=== PATIENT | male | born 1950 | race Caucasian/White ===

== ENCOUNTER 2018-03-25 05:24 | Day surgery (SDC) | payer MEDICARE, SELFPAY ==
[2015-12-19 14:27] VITALS: BMI 25.1
[2018-03-25] VITALS (13 sets, daily range): BP systolic 84–120; BP diastolic 62–81; PULSE 63–115; RESP 16; TEMP 36.3–36.4; O2SAT 92–96; BMI 25.9
[2018-03-25] MEDS: Cefazolin 1 GM/50 ML BAG IV (07:12)
[2018-03-25] MEDS: Bupivacaine Mpf 0.5% 30 ML VIAL (07:25)
--- NOTE | 2018-03-25 07:46 | EKG12_ITS ---
Test Reason : NEW A-FIB POSTOP Blood Pressure : / mmHG Vent. Rate : 095 BPM Atrial Rate : 117 BPM P-R Int : 000 ms QRS Dur : 084 ms QT Int : 344 ms P-R-T Axes : 000 033 020 degrees QTc Int : 432 ms Atrial fibrillation Septal infarct , age undetermined Abnormal ECG No previous ECGs available Confirmed by ADOLFO QUACH, EMILY ([id number]), loan expeditor LUZ COHN ([id number] on 03/30/2018 11:29:43 AM Referred By: Myles Iraheta Confirmed By:EMILY MATA MD
--- NOTE | 2018-03-25 08:12 | SUR.PHASEI ---
Addendum entered by Ines Josue 03/25/18 09:19: Dr Parekh discussed care/treatment with Dr Wood, sheet metal roofer; Cardizem 10 mg IVP given per policy at 0850, HR decreased from 90-115's to 50-60's. BP stable. Continues to be asymptomatic. Introduced A-Fib education to patient. Okay to transfer back to per Dr Parekh, will be d/c home and followed up in office. Still awaiting return call to Dr Wood to Dr Parekh to discuss whether to start blood thinner. Original Note: At 0745, patient arrives to PACU in Afib which was noted in O.R. by Abbey Lindsay CRNA and Dr Kasi Parekh reported in O.R. and aware. Called for 12-Lead EKG. When patient more alert, denies having history cardiac arrhythmia. Denies chest pain, SOB, palpitations, denies any recent symptoms of dizziness, light-headedness, increased fatigue, or any other c/o. States he's been doing lots of weather-related physical work outdoors recently.
[2018-03-25] MEDS: dilTIAZem 25 MG/5 ML Vial 10 MG IV BOLUS (08:50)
--- NOTE | 2018-03-25 08:55 | PCM.OPRPT ---
Report of Operation Date of Procedure: 03/25/18 Pre-Operative Diagnosis: Right carpal tunnel syndrome Post-Operative Diagnosis: Right carpal tunnel syndrome Surgery/Procedure Performed:: Right carpal tunnel release Description of Surgical Findings:: Complete release transverse carpal ligament automobile brakes bonder: None Type of Anesthesia:: Block,[place] Anesthesiologist: Kasi Parekh Special Medications: Ancef Estimated Blood Loss (mL): 2 Fluids Replaced: 300 mL crystalloid Description of Procedure: Brief history operative indications: 67-year-old male patient wished to proceed with right open carpal tunnel release. After discussing risks and benefits including but not limited to blood loss, DVTs, PEs, neurovascular damage, infection, hematoma and general risk of anesthesia, the patient demonstrated understanding wish to proceed with right open carpal tunnel release Procedure: On the date of the procedure, the patient's right upper extremity was marked in the preoperative area. Patient was taken back to the operating room, where the tourniquet was placed on the right upper extremity. Patient was given light sedation. All bony prominences are identified well-padded. Anesthesia assumed control C-spine and airway and remained in control throughout the remainder the procedure. [place] block was administered by anesthesia. The right upper extremity was prepped in sterile fashion. Surgeon then scrub. Upon reentering the room, the right upper extremity was prepped in a standard orthopedic fashion. A timeout was called and everyone agreed upon the side, the site, the procedure to be performed, patient identity and antibiotics given. The incision was marked out. Incision was taken at the skin subtenons tissue fat down to fascia. Fascia was then lightly tethered until the median nerve was visible. A [place] was placed proximally and distally, and then scissors were placed proximally and distally to release the transverse carpal ligament. During the release the others were never completely closed. The [place] was then placed proximally and distally once more to verify the transverse carpal ligament had been adequately released. The wound was then copiously irrigated out with normal saline. Wound was then closed using 3-0 nylon suture. 10 cc of 50-50 mixture of 1% lidocaine and 0.5% Sensorcaine without epinephrine injection was given. Xeroform dressing was placed, sterile dressing was placed, compressive dressing was placed. Tourniquet was let down. Volar splint was placed. Patient was awakened by anesthesia and transferred to the PACU for recovery. Postoperative plan: The patient will follow up in 2 weeks for removal splint removal sutures. At that time if they are doing well they will follow-up as needed. - Complications No intraoperative complications - Admit VTE Documentation VTE Present on Admission: No VTE Mechan Device Prophylaxis: SCD's VTE Pharm Prophylaxis ordered?: No Reason prophylaxis not ordered:: Treatment Not Indicated
[2018-03-25] MEDS: Ketorolac 30 MG/ML Syringe IV (08:57)
[2018-03-25] MEDS: Lactated Ringers 1,000 ML 125 ML IV (08:58)
== END 2018-03-25 11:14 | disposition home or self-care (01) ==
LOC: SDC 05:26 → AC 05:29
PROVIDERS: Family Provider Family Medicine; PCP Family Medicine; Referring Provider Specialist; Visit Provider Specialist
PROC: (CPT 64721; principal; 2018-03-25 07:00)
DX: G56.03 Carpal tunnel syndrome, bilateral upper limbs (principal); E66.3 Overweight; Z68.26 Body mass index [BMI] 26.0-26.9, adult
CPT/HCPCS: 64721; 93005; J7120; J2405

== ENCOUNTER → 2018-03-31 08:05 | Outpatient (CLI) | payer MEDICARE, SELFPAY ==
[2018-03-26 10:37] VITALS: BMI 26.4
[2018-03-31 10:05] LABS: International Normalized Ratio 1.2; Prothrombin Time (Protime)PT. 14.7 SECONDS (11.7-14.9)
[2018-03-31 10:34] LABS: AST(SGOT) 23 U/L (15-37); Alanine Aminotransfer ALT/SGPT 33 U/L (16-61); Albumin, Serum 3.4 g/dL (3.2-5.0); Alkaline Phosphatase 44 U/L (45-117); Bilirubin, Direct 0.18 mg/dL (0.00-0.30); Cholesterol 152 mg/dL (200); Globulin 2.9 g/dL (2.2-4.2); High Density Lipoprotein 47 mg/dL; Protein, Total 6.3 g/dL (6.4-8.2); T4 Total, Thyroxin 6.6 ug/dL (4.5-12.1); Thyroid Stim Hormone (TSH) 3.53 uIU/mL (0.358-3.74); Triglycerides 70 mg/dL; Very Low Density Lipoprotein 14 mg/dL (5-40)
== END ==
PROVIDERS: Family Provider Family Medicine; PCP Family Medicine; Referring Provider Internal Medicine Cardiovascular Disease; Visit Provider Internal Medicine Cardiovascular Disease
DX: E78.5 Hyperlipidemia, unspecified (principal); I49.3 Ventricular premature depolarization; I48.91 Unspecified atrial fibrillation; Z79.01 Long term (current) use of anticoagulants
CPT/HCPCS: 36415; 80061; 80076; 84436; 84443; 85610

== ENCOUNTER → 2018-04-06 12:32 | Outpatient (CLI) | payer MEDICARE, SELFPAY ==
[2018-03-26 10:37] VITALS: BMI 26.4
--- NOTE | 2018-04-06 12:34 | ECHOD_ITS ---
Reason For Study: AFIB Procedure This was a 2D Doppler, Color Flow transthoracic echocardiogram. Exam performed in department. Left Ventricle Normal size and thickness. The estimated ejection fraction is 55-60 %. Normal diastology for age. No regional wall motion abnormalities noted. Right Ventricle Normal size and thickness. Normal systolic function. Atria Normal left atrium. Normal right atrium. Normal atrial septum. Mitral Valve The mitral valve is structurally normal. No prolapse or stenosis seen. Tricuspid Valve Possible redundant tricuspid valve vs artifact; of no clinical significance. Trivial tricuspid valve insufficiency. Aortic Valve Normal aortic valve. Trisinus/trileaflet aortic valve. Pulmonic Valve Normal pulmonic valve. Trivial eccentric pulmonic valve insufficiency. Great Vessels Normal aortic root. Normal arch. Normal inferior vena cava. Inferior vena cava collapse with sniff. Pericardium/Pleural No pericardial effusion. MMode/2D Measurements & Calculations LVIDd: 4.9 cm IVSd: 1.2 cm Ao root diam: 3.1 cm LVIDs: 3.4 cm LVPWd: 1.1 cm FS: 30.5 % LAV(MOD-bp): 63.0 ml LVAd ap4: 41.3 cm2 SV(MOD-sp4): 102.1 ml LAV(MOD-bp) Indexed: 34.6 ml/m2 EDV(MOD-sp4): 152.1 ml LAV(MOD-sp2): 52.0 ml EDV(sp4-el): 157.2 ml LAV(MOD-sp4): 67.7 ml LVAs ap4: 21.2 cm2 ESV(MOD-sp4): 50.0 ml ESV(sp4-el): 51.5 ml EF(MOD-sp4): 67.1 % EF(sp4-el): 67.2 % SV(sp4-el): 105.6 ml LA A4 area: 22.9 cm2 LA dimension(2D): 4.2 cm RA A4 area: 18.0 cm2 Time Measurements MV dec time: 0.27 sec Doppler Measurements & Calculations MV E max miquel: 69.3 cm/sec Lat Peak E' Miquel: 8.7 cm/sec Med Peak E' Miquel: 6.1 cm/sec MV A max miquel: 39.9 cm/sec E/E' lat: 8.0 E/E' med: 11.4 MV E/A: 1.7 Ao V2 max: 105.7 cm/sec LV V1 max: 81.3 cm/sec PA V2 max: 88.6 cm/sec Ao max P.5 mmHg LV V1 max P.6 mmHg PI end-d miquel: 78.3 cm/sec TR max miquel: 249.3 cm/sec TR max P.0 mmHg Interpretation Summary The estimated ejection fraction is 55-60 %. Normal diastology for age. Trivial tricuspid valve insufficiency. Possible redundant tricuspid valve vs artifact; of no clinical significance. There is no comparison study available. Ordering Physician: Dawson Wood Referring Physician: EBEN SMITH Performed By: Catrachita Mathew, GABRIELA, RVT
== END ==
PROVIDERS: Family Provider Family Medicine; PCP Family Medicine; Referring Provider Internal Medicine Cardiovascular Disease; Visit Provider Internal Medicine Cardiovascular Disease
DX: R94.31 Abnormal electrocardiogram [ECG] [EKG] (principal); I49.3 Ventricular premature depolarization; I48.91 Unspecified atrial fibrillation
CPT/HCPCS: 93306

== ENCOUNTER 2018-04-06 12:37 | Outpatient (RCR) | payer MEDICARE, SELFPAY ==
[2018-03-26 10:37] VITALS: BMI 26.4
[2018-04-06 13:34] LABS: Hematocrit 44.6 % (40-54); Hemoglobin 14.5 g/dl (13.0-16.5); Mean Corp Hgb Conc 32.5 g/gl (32-36); Mean Corpuscular Hgb 31.9 pg (27.0-32.0); Mean Corpuscular Volume 98.2 fL (80-94); Platelet Count 201 K/mm3 (150-450); RBC Distribution Width CV 13.2 % (11.6-14.6); RBC Distribution Width SD 47.4 fl (35.1-43.9); Red Blood Count 4.54 M/mm3 (4.6-6.2); White Blood Count 6.9 K/mm3 (4.4-11.0)
[2018-04-06 13:43] LABS: Scan Indicated on CBC? Y/N NO
[2018-04-06 13:56] LABS: Anion Gap 5 (5-15); BUN 22 mg/dL (7-18); BUN/Creat Ratio 16.7 RATIO (10-20); Calcium,Total 8.3 mg/dL (8.5-10.1); Chloride 106 mmol/L (98-107); Creatinine, Serum 1.32 mg/dL (0.70-1.30); EST Glomerular Filtration Rate 58 mL/min (>60); Est Glom Filt Rate - Afr Amer 70 mL/min (>60); Glucose 74 mg/dL (74-106); Potassium 4.5 mmol/L (3.5-5.1); Sodium Level 142 mmol/L (136-145)
[2018-04-06 14:00] LABS: International Normalized Ratio 1.2; Prothrombin Time (Protime)PT. 15.5 SECONDS (11.7-14.9)
== END 2018-04-16 13:59 | disposition home or self-care (01) ==
LOC: LAB 12:37
PROVIDERS: Family Provider Family Medicine; PCP Family Medicine; Referring Provider Internal Medicine Cardiovascular Disease; Visit Provider Internal Medicine Cardiovascular Disease
DX: I48.91 Unspecified atrial fibrillation (principal); I49.3 Ventricular premature depolarization; R94.31 Abnormal electrocardiogram [ECG] [EKG]; Z79.01 Long term (current) use of anticoagulants
CPT/HCPCS: 36415; 80048; 85027; 85610; 93306

== ENCOUNTER → 2018-04-14 10:00 | Outpatient (CLI) | payer MEDICARE, SELFPAY ==
[2018-03-26 10:37] VITALS: BMI 26.4
--- NOTE | 2018-04-14 10:06 | STEWCON_ITS ---
Reason For Study: AFIB/FLUTTER Stress Results Protocol: Stress Echocardiogram Maximum Predicted HR: 154 bpm Target HR: 131 bpm % Maximum Predicted HR: 84 % DurationHeart Rate Stage (mm:ss) (bpm) BP Comment BASELINE 39 130/70SR AAKASH PROTOCOL- STAGE 1 3:00 100 140/74VENTRICULAR BIGEMINY, VENTRICULAR COUPLETS AAKASH PROTOCOL- STAGE 2 3:00 108 144/80VENTRICULAR BIGEMINY, VENTRICULAR COUPLETS AAKASH PROTOCOL- STAGE 3 3:00 130 148/78VENTRICULAR BIGEMINY, VENTRICULAR COUPLETS RECOVERY 68 124/68ONE VENTRICULAR TRIPLET Stress Duration: 9:00 mm:ss Maximum Stress HR: 130 bpm Baseline Echocardiogram Findings The estimated ejection fraction is 65 %. Stress Echo Wall motion Data Resting WM Intermediate WM Stress WM Resting Wall Motion Wall Motion Stress No regional wall motion No regional wall motion abnormalities noted. abnormalities noted. EKG Data Normal intervals are noted. The patient exercised according to the regular Aakash protocol for a total duration of 9:02. The maximum heart rate attained was 130 beats per minute. This was 84% of maximum predicted heart rate. The patient exercised into stage 4 of the Aakash protocol. During stress, there were no ST or T wave changes noted to suggest ischemia. No clinical angina was noted. Interpretation Summary The estimated ejection fraction is 65 %. Normal, adequate, treadmill echocardiogram. Negative for ischemia by EKG and echocardiographic criteria. No anginal symptoms noted. Patient had frequent PVCs, ventricular bigeminy, ventricular couplets, and ventricular triplets during exercise and into recovery. This may be concerning for possible undetectable ischemia. Final LVEF is 75%. Test terminated due to foot pain and target heart rate achieved. No complications. Ordering Physician: Dawson Wood Referring Physician: Dawson Wood Performed By: Karina Wilde RDCS
[2018-04-14 11:21] LABS: International Normalized Ratio 1.2; Prothrombin Time (Protime)PT. 15.3 SECONDS (11.7-14.9)
== END ==
PROVIDERS: Family Provider Family Medicine; PCP Family Medicine; Referring Provider Internal Medicine Cardiovascular Disease; Visit Provider Internal Medicine Cardiovascular Disease
DX: I48.91 Unspecified atrial fibrillation (principal); I49.3 Ventricular premature depolarization; R94.31 Abnormal electrocardiogram [ECG] [EKG]; Z79.01 Long term (current) use of anticoagulants
CPT/HCPCS: 36415; 85610; 93017; 93350

== ENCOUNTER 2018-04-21 06:55 | Day surgery (SDC) | payer MEDICARE, SELFPAY ==
[2018-03-26 10:37] VITALS: BMI 26.4
--- NOTE | 2018-04-15 13:46 | RAD_ITS ---
HISTORY: Short of breath. EXAM: XR Chest 2 Views: COMPARISON: None FINDINGS: # of images incl. paperwork: 2 LINES/DEVICES: None. LUNGS: Radiographically clear. No consolidation, edema or effusion. No pneumothorax. MEDIASTINUM AND CARDIOVASCULAR STRUCTURES: Cardiac silhouette not enlarged. Central airways and mediastinal contour are unremarkable. BONES AND SOFT TISSUES: Unremarkable. RAD/Chest PA and Lateral IMPRESSION: No radiographic evidence of acute cardiopulmonary disease. at 2110 Reported and signed by: Leeroy Garcia MD Electronically Signed: Leeroy Garcia, at 21:09 EST Tel , Service support ,
[2018-04-20 07:24] VITALS: BMI 26.4
[2018-04-21 07:50] LABS: International Normalized Ratio 1.1; Prothrombin Time (Protime)PT. 14.2 SECONDS (11.7-14.9)
--- NOTE | 2018-04-21 09:03 | CL.D_ITS ---
Patient Name: CHASITY PINO Study Date: 04/21/2018 Performing: Dawson Wood MD Ht: 66.14 inches 168 cm : 1950 Wt: 163.14 lbs 74 kg Age: 67 Gender: male BSA: 1.84 PROCEDURE(S) PERFORMED LD84-UZU/COR/LV CLINICAL PROFILE AND INDICATIONS Indications: Suspected CAD, Pre-Operative Evaluation, Cardiac Arrythmia Heart Failure: None Stress/Imaging Stress Echocardiogram: Yes Result: IndeterminantStress Echocardiogram: Indetermina nt Angina Classification Anginal Classification w/in 2 Weeks: No symptoms CAD Presentations: Other: Frequent PVCs, dyspnea on exertion. Comorbidities/Risk Factors: Hypertension CONCLUSIONS Normal coronary arteries Normal LV size, wall motion,and systolic function LVEF: by LV gram 65 % Elevated Left Ventricular End Diastolic Pressure RECOMMENDATIONS Restart coumadin as pt is unable to detect when he is in and out of afib. Pt in sinus cheng as of tod ay's procedure. Start HCTZ 12.5 mg po daily for HTN and elevated LVEDP. Pt is at low risk for non cardiac carpal tunnel surgery. DESCRIPTION OF PROCEDURE The patient arrived to the procedure lab. The risks and benefits of the procedure as well as a full d escription of our services here and current unavailability of surgical backup were fully explained to the patient and/or their significant other prior to the catheterization. The Timeout was completed, verifying the correct patient and procedure. The patient's procedural site was prepped and draped in the usual fashion. Local anesthetic was given subcutaneously to right groin region with Lidocaine 2%. Using a modified Seldinger technique, arterial access was obtained via the right femoral artery, a 4 Fr sheath was inserted Left Coronary Artery selective angiography was performed in multiple views us ing a 4 Fr. JL5 catheter. Right Coronary Artery selective angiography was then performed in multiple views using a 4 Fr. 3DRC catheter. Left Ventriculography was performed in KILPATRICK projection using a 4 Fr . Pigtail catheter. LV to AO pullback pressures were then recorded.The arterial sheath was pulled and manual compression applied until hemostasis is achieved. CORONARY ANGIOGRAPHY DOMINANCE: Right Dominant LEFT HEART ASSESSMENT Left Ventricular Ejection Fraction: by LV Gram 65 % Normal LV wall motion Normal Left Ventricular systolic function Normal Left Ventricular systolic function Elevated Left Ventricular End Diastolic Pressure LVEDP: 19 mmHg LEFT MAIN: Angiographically normal LEFT ANTERIOR DECENDING ARTERY: Angiographically normal CIRCUMFLEX ARTERY: Angiographically normal RIGHT CORONARY ARTERY: Angiographically normal COMPLICATIONS No Complications PROCEDURE MEDICATIONS Versed 1 mg IV Oxygen: 2 L/min via nasal cannula SUMMARY OF HEMODYNAMIC DATA Time AIR REST ECG 07:34:17 ECG 08:23:09 AO 141/56 (84) SA 08:34:35 LV 150/-6, 19 08:40:33 LV 147/-7, 18 08:40:39 LVp 148/-8, 18 08:40:46 AOp 156/55 (85) 08:40:51 Signed By Dawson Wood MD On 04/21/2018 09:02:23 Dawson Wood MD
== END 2018-04-21 13:15 | disposition home or self-care (01) ==
PROVIDERS: Family Provider Family Medicine; PCP Family Medicine; Referring Provider Internal Medicine Cardiovascular Disease; Visit Provider Internal Medicine Cardiovascular Disease
DX: I11.0 Hypertensive heart disease with heart failure (principal); I50.1 Left ventricular failure, unspecified; I48.91 Unspecified atrial fibrillation; E78.5 Hyperlipidemia, unspecified; Z79.01 Long term (current) use of anticoagulants; Z79.899 Other long term (current) drug therapy
CPT/HCPCS: 36415; 71046; 85610; 93458; 99152; J7040; C1769; C1894; Q9967

== ENCOUNTER → 2018-04-28 14:28 | Outpatient (CLI) | payer MEDICARE, SELFPAY ==
[2018-04-28 13:19] VITALS: BMI 26.4
== END ==
PROVIDERS: Family Provider Family Medicine; PCP Family Medicine; Referring Provider Physician Assistant Medical; Visit Provider Physician Assistant Medical
DX: I48.0 Paroxysmal atrial fibrillation (principal); I49.3 Ventricular premature depolarization; R94.31 Abnormal electrocardiogram [ECG] [EKG]; Z79.01 Long term (current) use of anticoagulants
CPT/HCPCS: 36415; 85610; 93225; 93226

== ENCOUNTER 2018-05-15 09:00 | Outpatient (RCR) | payer MEDICARE, SELFPAY ==
[2018-03-26 10:37] VITALS: BMI 26.4
[2018-04-28 10:37] VITALS: BMI 26.4
[2018-04-28 13:45] LABS: International Normalized Ratio 1.2; Prothrombin Time (Protime)PT. 14.9 SECONDS (11.7-14.9)
[2018-05-05 09:11] LABS: International Normalized Ratio 1.2; Prothrombin Time (Protime)PT. 14.6 SECONDS (11.7-14.9)
[2018-05-12 09:42] LABS: International Normalized Ratio 1.2; Prothrombin Time (Protime)PT. 14.5 SECONDS (11.7-14.9)
[2018-05-15 10:09] LABS: International Normalized Ratio 1.7
== END 2018-05-15 12:35 | disposition home or self-care (01) ==
LOC: LAB 09:00
PROVIDERS: Family Provider Family Medicine; PCP Family Medicine; Referring Provider Internal Medicine Cardiovascular Disease; Visit Provider Internal Medicine Cardiovascular Disease
DX: I48.91 Unspecified atrial fibrillation (principal); I49.3 Ventricular premature depolarization; R94.31 Abnormal electrocardiogram [ECG] [EKG]; Z79.01 Long term (current) use of anticoagulants
CPT/HCPCS: 36415; 85610

== ENCOUNTER 2018-06-10 12:59 | Outpatient (RCR) | payer MEDICARE, SELFPAY ==
[2018-04-28 13:19] VITALS: BMI 26.4
[2018-05-18 11:35] LABS: International Normalized Ratio 3.1; Prothrombin Time (Protime)PT. 32.2 SECONDS (11.7-14.9)
[2018-05-25 09:51] LABS: International Normalized Ratio 2.4
[2018-06-08 08:33] LABS: Prothrombin Time (Protime)PT. 41.9 SECONDS (11.7-14.9)
[2018-06-08 08:42] LABS: International Normalized Ratio 4.3
[2018-06-10 13:51] LABS: International Normalized Ratio 1.9; Prothrombin Time (Protime)PT. 21.6 SECONDS (11.7-14.9)
== END 2018-06-16 16:00 | disposition home or self-care (01) ==
LOC: LAB 12:59
PROVIDERS: Family Provider Family Medicine; PCP Family Medicine; Referring Provider Internal Medicine Cardiovascular Disease; Visit Provider Internal Medicine Cardiovascular Disease
DX: I48.91 Unspecified atrial fibrillation (principal); Z79.01 Long term (current) use of anticoagulants
CPT/HCPCS: 36415; 85610

== ENCOUNTER → 2018-06-26 11:09 | Outpatient (CLI) | payer MEDICARE, SELFPAY ==
[2018-06-26 11:09] VITALS: BMI 26.8
[2018-06-26 11:53] LABS: Absolute Lymphocyte Count 1.39 X10^3/ul (0.83-4.51); Basophil# 0.03 X10^3/uL; Basophil% 0.5 % (0-1); Eosinophil# 0.19 X10^3/uL; Hematocrit 43.2 % (40-54); Lymphocyte # 1.39 X10^3/ul (4.0); Lymphocyte % 21.6 % (19-41); Mean Corp Hgb Conc 32.4 g/gl (32-36); Mean Corpuscular Hgb 31.6 pg (27.0-32.0); Mean Corpuscular Volume 97.5 fL (80-94); Mean Platelet Vol. 10.4 fl (6.2-12.0); Monocyte% 12.4 % (0-10); Neutrophil # 4.02 X10^3/uL (2.7-7.7); Neutrophil % 62.3 % (47-70); Platelet Count 200 K/mm3 (150-450); RBC Distribution Width CV 13.7 % (11.6-14.6); RBC Distribution Width SD 48.4 fl (35.1-43.9); Red Blood Count 4.43 M/mm3 (4.6-6.2); White Blood Count 6.4 K/mm3 (4.4-11.0)
[2018-06-26 11:54] LABS: POSITIVE COUNT NO; POSITIVE DIFFERENTIAL NO; POSITIVE MORPHOLOGY NO
[2018-06-26 12:03] LABS: Erythrocyte Sedimentation Rate 6 mm/hr (0-20)
[2018-06-26 12:49] LABS: CRP < 2.90 mg/L (0.0-3.0)
== END ==
PROVIDERS: Family Provider Family Medicine; PCP Family Medicine; Referring Provider Physician Assistant Surgical; Visit Provider Physician Assistant Surgical
DX: M25.562 Pain in left knee (principal)
CPT/HCPCS: 36415; 85025; 85652; 86140

== ENCOUNTER → 2019-10-08 08:24 | Outpatient (CLI) | payer MEDICARE, SELFPAY ==
[2019-05-17 09:34] VITALS: BMI 26.1
[2019-10-08 09:22] LABS: AST(SGOT) 16 U/L (15-37); Alanine Aminotransfer ALT/SGPT 20 U/L (16-61); Albumin, Serum 3.2 g/dL (3.2-5.0); Alkaline Phosphatase 51 U/L (45-117); Bilirubin, Direct 0.11 mg/dL (0.00-0.30); Cholesterol 190 mg/dL (200); Globulin 3.6 g/dL (2.2-4.2); High Density Lipoprotein 50 mg/dL; Protein, Total 6.8 g/dL (6.4-8.2); Triglycerides 84 mg/dL; Very Low Density Lipoprotein 17 mg/dL (5-40)
== END ==
PROVIDERS: PCP Family Medicine; Referring Provider Internal Medicine Cardiovascular Disease; Visit Provider Internal Medicine Cardiovascular Disease
DX: E78.5 Hyperlipidemia, unspecified (principal); I10 Essential (primary) hypertension
CPT/HCPCS: 36415; 80061; 80076

== ENCOUNTER → 2020-07-18 09:54 | Outpatient (CLI) | payer MEDICARE, SELFPAY ==
[2020-07-12 13:40] VITALS: BMI 25.5
== END ==
PROVIDERS: PCP Family Medicine; Referring Provider Internal Medicine Cardiovascular Disease; Visit Provider Internal Medicine Cardiovascular Disease
DX: I48.0 Paroxysmal atrial fibrillation (principal)
CPT/HCPCS: 93225; 93226

== ENCOUNTER → 2020-08-30 06:33 | Outpatient (CLI) | payer MEDICARE, SELFPAY ==
[2020-07-12 13:40] VITALS: BMI 25.5
--- NOTE | 2020-08-30 16:52 | STRESSREP ---
Stress Test Report Date: 08-30-2020 Procedure: Exercise tolerance test/imaging study Indications: Paroxysmal atrial fibrillation; PVCs Consent: Per the patient Procedure: The patient exercised on a Remington protocol for 7 minutes and 40 seconds completing Stage II and 1 minute and 40 seconds of Stage III achieving a peak heart rate of 137 bpm (90% predicted maximal heart rate) with a peak blood pressure 158/80 mmHg and a peak MET capacity of 9 METs. The baseline ECG demonstrated sinus bradycardia; septal TX pattern of indeterminate age cannot be excluded; nonspecific T wave abnormality. The peak exercise ECG demonstrated no obvious ECG changes. There were occasional PVCs during exercise and recovery and transient ventricular bigeminy during recovery. The functional capacity was considered good. There was no complaint of chest discomfort during exercise or recovery. The examination was discontinued secondary to leg discomfort. Impression: 1. Technically adequate (percent predicted maximal heart rate greater than 85%) exercise tolerance test 2. Peak exercise ECG with no obvious ECG changes 3. There were occasional PVCs during exercise and recovery and transient ventricular bigeminy during recovery 4. Nuclear images pending Myocardial perfusion imaging study: Technique: The patient was injected with 11.3 mCi of technetium 99m Cardiolite and subsequently rest SPECT Cardiolite nuclear imaging was obtained in the horizontal long, vertical long, and short axis views. The patient exercised on a Remington protocol for 7 minutes and 40 seconds completing Stage II and 1 minute and 40 seconds of Stage III achieving a peak heart rate of 137 bpm (90% predicted maximal heart rate) with a peak blood pressure 158/80 mmHg and a peak MET capacity of 9 METs. The patient was injected with 31.2 mCi of technetium 99m Cardiolite and subsequently stress SPECT Cardiolite nuclear imaging was obtained in the horizontal long, vertical long, and short axis views. A gated Cardiolite study at peak stress was obtained. Interpretation: Rest and stress SPECT Cardiolite nuclear imaging status post realignment, normalization, and attenuation correction, demonstrates the appearance of relative uniform tracer uptake and myocardial perfusion appearing within normal limits. There is end systolic thickening and brightening. The gated Cardiolite study demonstrates myocardial thickening and inward wall motion. The reported LVEF is 48%. Impression: 1. Rest and stress SPECT Cardiolite nuclear imaging demonstrate relative uniform tracer uptake and myocardial perfusion appearing within normal limits. 2. The gated Cardiolite study reports an LVEF of 48%. This note was generated with Dragon dictation software. It may contain incorrect words, spelling, and punctuation that were not noted in checking the note before signing.
== END ==
PROVIDERS: PCP Family Medicine; Referring Provider Internal Medicine Cardiovascular Disease; Visit Provider Internal Medicine Cardiovascular Disease
DX: R94.31 Abnormal electrocardiogram [ECG] [EKG] (principal)
CPT/HCPCS: 78452; 93017; A9500; A4216

== ENCOUNTER → 2021-07-30 | Outpatient (CLI) | payer MEDICARE, SELFPAY ==
[2021-07-30 12:00] LABS: Anion Gap 3 (5-15); BUN 17 mg/dL (7-18); BUN/Creat Ratio 13.2 RATIO (10-20); Calcium,Total 8.6 mg/dL (8.5-10.1); Chloride 105 mmol/L (98-107); Creatinine, Serum 1.29 mg/dL (0.70-1.30); EST Glomerular Filtration Rate 59 mL/min (>60); Est Glom Filt Rate - Afr Amer 71 mL/min (>60); Glucose 107 mg/dL (74-106); Magnesium 2.2 mg/dL (1.6-2.6); Potassium 4.4 mmol/L (3.5-5.1); Sodium Level 141 mmol/L (136-145)
== END | disposition home or self-care (01) ==
PROVIDERS: PCP Family Medicine; Referring Provider Nurse Practitioner Gerontology; Visit Provider Nurse Practitioner Gerontology
DX: I48.0 Paroxysmal atrial fibrillation (principal)
CPT/HCPCS: 36415; 80048; 83735; 84443

== ENCOUNTER → 2021-08-21 | Outpatient (CLI) | payer MEDICARE, SELFPAY ==
--- NOTE | 2021-08-21 12:48 | ECHOD_ITS ---
Reason For Study: ATRIAL FIB-FLUTTER Procedure This was a 2D Doppler, Color Flow transthoracic echocardiogram. The exam was of adequate technical quality. Exam performed in department. Left Ventricle Normal LV size. Moderate concentric left ventricular hypertrophy. Left ventricular systolic function is normal. The estimated ejection fraction is 55 %. Unable to assess diastolic dysfunction. No regional wall motion abnormalities noted. Right Ventricle Normal RV size. Normal systolic function. Atria The left atrium is mildly enlarged. Normal right atrium. No doppler evidence for ASD. Mitral Valve There is no mitral annular calcification. Mild diffuse mitral valve thickening. Mild mitral valve prolapse, posterior leaflet. Mild (1+) mitral valve insufficiency. Tricuspid Valve Normal tricuspid valve. Mild tricuspid valve insufficiency. Right ventricular systolic pressure estimated to be 34 mmHg. Aortic Valve Trisinus/trileaflet aortic valve. Normal aortic valve. Pulmonic Valve The pulmonic valve is not well visualized. Trivial pulmonic valve insufficiency. Great Vessels Normal sized aortic root. Pericardium/Pleural No pericardial effusion. MMode/2D Measurements & Calculations LVIDd: 4.5 cm IVSd: 1.4 cm Ao root diam: 3.2 cm LVIDs: 3.4 cm LVPWd: 1.4 cm RVDd: 3.5 cm FS: 23.8 % LAV(MOD-bp): 61.2 ml LVAd ap4: 33.3 cm2 SV(MOD-sp4): 46.5 ml LAV(MOD-bp) Indexed: 34.2 ml/m2 LVLd ap4: 8.0 cm LAV(MOD-sp2): 61.5 ml EDV(MOD-sp4): 114.3 ml LAV(MOD-sp4): 60.2 ml EDV(sp4-el): 117.2 ml LVAs ap4: 24.0 cm2 LVLs ap4: 7.4 cm ESV(MOD-sp4): 67.8 ml ESV(sp4-el): 66.4 ml EF(MOD-sp4): 40.7 % EF(sp4-el): 43.3 % SV(sp4-el): 50.8 ml LA A4 area: 20.8 cm2 LA dimension(2D): 4.1 cm RA A4 area: 16.5 cm2 Doppler Measurements & Calculations MV E max michele: 72.5 cm/sec Ao V2 max: 95.6 cm/sec LV V1 max: 69.0 cm/sec Ao max P.7 mmHg LV V1 max P.9 mmHg PA V2 max: 83.2 cm/sec TR max michele: 278.1 cm/sec TR max P.0 mmHg ECHO/Echo Complete Interpretation Summary Left ventricular systolic function is normal. The estimated ejection fraction is 55 %. Moderate concentric left ventricular hypertrophy. The left atrium is mildly enlarged. Mild diffuse mitral valve thickening. Mild mitral valve prolapse, posterior leaflet Mild (1+) mitral valve insufficiency. Mild tricuspid valve insufficiency. Trivial pulmonic valve insufficiency. Right ventricular systolic pressure estimated to be 34 mmHg. Unable to assess diastolic dysfunction. Ordering Physician: Thom Schulte/Rashard Victor Referring Physician: AUGUSTINA BOONE Performed By: Karina Wilde RDCS
== END | disposition home or self-care (01) ==
LOC: CVS 12:47
PROVIDERS: PCP Family Medicine; Referring Provider Nurse Practitioner Gerontology; Visit Provider Nurse Practitioner Gerontology
DX: I48.0 Paroxysmal atrial fibrillation (principal); R06.00 Dyspnea, unspecified
CPT/HCPCS: 93225; 93226; 93306

== ENCOUNTER → 2021-12-13 | Outpatient (CLI) | payer MEDICARE, SELFPAY ==
--- NOTE | 2021-12-13 07:46 | CT_ITS ---
STUDY: CT MAXILLOFACIAL SINUSES REASON FOR EXAM: Male, 71 years old. Chronic sinus congestion. RADIATION DOSAGE (If Supplied By Facility): CTDIvol = ( 33.06 ) mGy, DLP = ( 788.40 ) mGycm TECHNIQUE: The patient was scanned in a multi detector CT scanner. High resolution axial imaging was performed without the administration of intravenous contrast material. Sagittal and coronal images were reconstructed. Individualized dose optimization techniques were used for this CT. COMPARISON: None. FINDINGS: FRONTAL SINUSES: Partial opacification of the frontal sinuses. ETHMOIDAL SINUSES: Partial opacification of the ethmoid sinuses. MAXILLARY SINUSES: There is partial opacification of the left maxillary sinus. Mucosal thickening of the right maxillary sinus. SPHENOIDAL SINUSES: Mucosal thickening of the sphenoid sinus. Compromise of the ostiomeatal complex bilaterally due to mucosal hypertrophy worse on the left side. Normal bilateral middle turbinates. There is hypertrophy of the bilateral inferior nasal turbinates. There is a mild right sided nasal septal deviation with a right sided nasal septal spur. There is patency of the bilateral nasal airways. The visualized osseous structures are normal. The visualized bilateral orbital contents are normal. CT/Sinus/Facial Bone IMPRESSION: ROACH sinusitis. Electronically Signed: Carlos Gonzalez MD at 9:19 EDT ,
== END | disposition home or self-care (01) ==
LOC: CT 07:38
PROVIDERS: PCP Family Medicine; Referring Provider Otolaryngology; Visit Provider Otolaryngology
DX: J32.8 Other chronic sinusitis (principal)
CPT/HCPCS: 70486

== ENCOUNTER → 2022-11-07 | Outpatient (CLI) | payer MEDICARE, SELFPAY ==
[2022-11-07 08:37] LABS: BNP,B-Type NATRIURETIC PEPTIDE 258.8 pg/mL (0-100)
== END | disposition home or self-care (01) ==
LOC: LAB 07:39
PROVIDERS: PCP Family Medicine; Referring Provider Internal Medicine Cardiovascular Disease; Visit Provider Internal Medicine Cardiovascular Disease
DX: R06.00 Dyspnea, unspecified (principal)
CPT/HCPCS: 36415; 83880

== ENCOUNTER → 2022-11-15 | Outpatient (CLI) | payer MEDICARE, SELFPAY ==
[2022-11-15 08:46] LABS: Anion Gap 4 (5-15); BUN 30 mg/dL (7-18); BUN/Creat Ratio 18.1 RATIO (10-20); Calcium,Total 8.4 mg/dL (8.5-10.1); Chloride 103 mmol/L (98-107); Creatinine, Serum 1.66 mg/dL (0.70-1.30); EST Glomerular Filtration Rate 44 mL/min (>60); Est Glom Filt Rate - Afr Amer 53 mL/min (>60); Glucose 100 mg/dL (74-106); Potassium 3.8 mmol/L (3.5-5.1); Sodium Level 138 mmol/L (136-145)
== END | disposition home or self-care (01) ==
LOC: LAB 07:42
PROVIDERS: PCP Family Medicine; Referring Provider Nurse Practitioner Gerontology; Visit Provider Nurse Practitioner Gerontology
DX: R06.00 Dyspnea, unspecified (principal); Z51.81 Encounter for therapeutic drug level monitoring; Z79.899 Other long term (current) drug therapy
CPT/HCPCS: 36415; 80048

== ENCOUNTER → 2022-11-20 | Outpatient (CLI) | payer MEDICARE, SELFPAY ==
--- NOTE | 2022-11-20 08:51 | ECHOD_ITS ---
Reason For Study: DYSPNEA Procedure This was a 2D Doppler, Color Flow transthoracic echocardiogram. Exam performed in department. Left Ventricle Normal LV size. Moderately severe global left ventricular systolic dysfunction. The left ventricular ejection fraction is 25 %. There is moderate to severe global hypokinesis of the left ventricle. Right Ventricle Mildly dilated right ventricle. Mild global right ventricular systolic dysfunction. Atria Normal left atrium. Normal right atrium. Mitral Valve Normal mitral valve. Tricuspid Valve Normal tricuspid valve. Aortic Valve Normal aortic valve. Trisinus/trileaflet aortic valve. Pulmonic Valve Normal pulmonic valve. Great Vessels Normal aortic root. The pulmonary artery is normal size. Normal inferior vena cava. Pericardium/Pleural No pericardial effusion. MMode/2D Measurements & Calculations LVIDd: 5.3 cm IVSd: 1.1 cm LVOT diam: 2.1 cm LVIDs: 4.3 cm LVPWd: 1.1 cm LVOT area: 3.6 cm2 RVDd: 4.3 cm FS: 18.2 % Ao root diam: 3.3 cm LAV(MOD-bp): 80.1 ml LVAd ap4: 31.7 cm2 LAV(MOD-bp) Indexed: 44.3 ml/m2 LVLd ap4: 8.4 cm LAV(MOD-sp2): 81.6 ml EDV(MOD-sp4): 102.4 ml LAV(MOD-sp4): 76.4 ml EDV(sp4-el): 101.9 ml LVAs ap4: 24.9 cm2 LVLs ap4: 7.6 cm ESV(MOD-sp4): 68.8 ml ESV(sp4-el): 68.8 ml EF(MOD-sp4): 32.9 % EF(sp4-el): 32.5 % LVAd ap2: 32.2 cm2 SV(MOD-sp4): 33.7 ml SV(MOD-sp2): 39.0 ml LVLd ap2: 7.7 cm EDV(MOD-sp2): 106.5 ml EDV(sp2-el): 114.3 ml LVAs ap2: 24.5 cm2 LVLs ap2: 7.6 cm ESV(MOD-sp2): 67.6 ml ESV(sp2-el): 66.8 ml EF(MOD-sp2): 36.6 % SV(sp4-el): 33.1 ml LA dimension(2D): 4.2 cm LA A4 area: 24.7 cm2 RA A4 area: 22.2 cm2 TAPSE: 1.1 cm Time Measurements MV dec time: 0.20 sec Doppler Measurements & Calculations MV E max miquel: 60.6 cm/sec Lat Peak E' Miquel: 7.5 cm/sec Med Peak E' Miquel: 4.5 cm/sec E/E' lat: 8.0 E/E' med: 13.3 Ao V2 max: 73.0 cm/sec LV V1 max: 55.9 cm/sec SV(LVOT): 35.5 ml Ao max P.2 mmHg LV V1 max P.3 mmHg Ao V2 mean: 53.7 cm/sec LV V1 mean P.65 mmHg Ao mean P.3 mmHg LV V1 mean: 37.7 cm/sec Ao V2 VTI: 12.4 cm LV V1 VTI: 9.8 cm AV (velocity ratio): 0.79 MONIQUE(I,D): 2.9 cm2 MONIQUE(V,D): 2.8 cm2 PA V2 max: 63.2 cm/sec TR max miquel: 287.2 cm/sec PA max PG (full): 0.86 mmHg TR max P.0 mmHg ECHO/Echo Complete Interpretation Summary Normal LV size. Moderately severe global left ventricular systolic dysfunction. There is moderate to severe global hypokinesis of the left ventricle. The left ventricular ejection fraction is 25 %. Compared to previous study, the left ventricular systolic function has worsened .. Ordering Physician: Valentina Davidson Referring Physician: Valentina Davidson Performed By: Roberta James RDCS
== END | disposition home or self-care (01) ==
PROVIDERS: PCP Family Medicine; Referring Provider Nurse Practitioner Gerontology; Visit Provider Nurse Practitioner Gerontology
DX: R06.00 Dyspnea, unspecified (principal); I48.0 Paroxysmal atrial fibrillation; I10 Essential (primary) hypertension; I49.3 Ventricular premature depolarization
CPT/HCPCS: 93306

== ENCOUNTER → 2022-11-27 | Outpatient (CLI) | payer MEDICARE, SELFPAY ==
[2022-11-27 15:13] LABS: Anion Gap 4 (5-15); BUN 26 mg/dL (7-18); Calcium,Total 8.5 mg/dL (8.5-10.1); Chloride 103 mmol/L (98-107); Creatinine, Serum 1.63 mg/dL (0.70-1.30); EST Glomerular Filtration Rate 45 mL/min (>60); Est Glom Filt Rate - Afr Amer 54 mL/min (>60); Glucose 144 mg/dL (74-106); Sodium Level 138 mmol/L (136-145)
--- NOTE | 2022-11-27 15:17 | RAD_ITS ---
INDICATION: Cardioversion EXAMINATION/TECHNIQUE: X-RAY - XR Chest 2 Views COMPARISON: FINDINGS: LINES/DEVICES: None. LUNGS: No consolidation, edema or effusion. Interstitial prominence. No pneumothorax. MEDIASTINUM AND CARDIOVASCULAR STRUCTURES: Cardiac silhouette not enlarged. Central airways and mediastinal contour are unremarkable. BONES AND SOFT TISSUES: Degenerative vertebral changes. RAD/Chest PA and Lateral IMPRESSION: Interstitial prominence. Electronically Signed: Brayden Whitley DO at 17:01 EDT ,
[2022-11-27 15:24] LABS: Magnesium 2.5 mg/dL (1.6-2.6); Thyroid Stim Hormone (TSH) 3.73 uIU/mL (0.358-3.74)
== END | disposition home or self-care (01) ==
PROVIDERS: PCP Family Medicine; Referring Provider Nurse Practitioner Gerontology; Visit Provider Nurse Practitioner Gerontology
DX: I48.0 Paroxysmal atrial fibrillation (principal)
CPT/HCPCS: 36415; 71046; 80048; 83735; 84443

== ENCOUNTER 2022-12-03 06:08 | Inpatient (IN) | payer MEDICARE, SELFPAY ==
[2022-12-03] VITALS (12 sets, daily range): BP systolic 99–122; BP diastolic 61–89; PULSE 60–75; RESP 16–23; TEMP 36.1–36.6; O2SAT 93–98; BMI 24.7; BMI 24.6; BMI 24.0
--- NOTE | 2022-12-03 06:20 | EKG12_ITS ---
Test Reason : CP Blood Pressure : / mmHG Vent. Rate : 072 BPM Atrial Rate : 000 BPM P-R Int : 000 ms QRS Dur : 086 ms QT Int : 404 ms P-R-T Axes : 000 138 223 degrees QTc Int : 442 ms Atrial fibrillation Right axis deviation Pulmonary disease pattern Septal infarct (cited on or before 25-MAR-2018) Abnormal ECG When compared with ECG of 25-MAR-2018 07:58, QRS axis Shifted right Non-specific change in ST segment in Inferior leads Non-specific change in ST segment in Lateral leads Nonspecific T wave abnormality now evident in Lateral leads Confirmed by ADOLFO QUACH, EMILY ([id number]), visual effects editor TYLOR THIBODEAUX ([id number]) on 12/04/2022 2:23:23 PM Referred By: FELIPA Confirmed By:EMIYL MATA MD
--- NOTE | 2022-12-03 06:20 | RAD_ITS ---
INDICATION: chest pain EXAMINATION/TECHNIQUE: X-RAY - XR Chest 1 View COMPARISON: November 27, 2022. FINDINGS: LINES/DEVICES: None. LUNGS: Lateral right midlung and left lung base hazy opacification and linear atelectasis. No effusion. No pneumothorax. MEDIASTINUM AND CARDIOVASCULAR STRUCTURES: Cardiac silhouette not enlarged. BONES AND SOFT TISSUES: Unremarkable. RAD/Chest 1 View (Portable) IMPRESSION: Hazy opacification in the lateral right midlung and left lung base concerning for typical or atypical pneumonia in the appropriate setting. If there is absence of clinical pneumonia CT fifth angiogram may be beneficial. Radiographic follow-up recommended after treatment to ensure resolution. Electronically Signed: Felix Marie MD at 6:54 EDT ,
--- NOTE | 2022-12-03 06:21 | EDS_ITS ---
HPI History of Present Illness Chief Complaint: Chest Pain Detail of Chief Complaint: Chest pain Informant: patient and family Narrative Narrative: Patient presents to the emergency department with complaint of chest pain. Patient states the symptoms started around 3 AM and woke him from sleep. He thought maybe he was having a bad dream. Describes a tightness in his chest and radiated to his neck. [place] nauseated with that and somewhat short of breath. He felt sweaty. Patient states he took a while before he came downstairs to let family know. On the way to the hospital his discomfort resolved. Patient does have history of A-fib and is anticoagulated with Xarelto. He scheduled to have a cardioversion as he has been complaining of exertional dyspnea for the last 2 months. Patient had an echocardiogram on the fourth of this month that showed an EF of 25% with decreased wall motion of the left ventricle. Patient states his last heart cath was in 2019. He is never had stents. Never had open heart surgery. [facility] Medical History Abnormal EKG Arthritis Bone spur of right foot Coronary artery calcification Essential hypertension Hyperlipidemia alf (current) use of anticoagulants New onset atrial fibrillation Paroxysmal atrial fibrillation Premature ventricular contractions Home Medications tamsulosin 0.4 mg capsule (Flomax) 0.4 mg PO DAILY 07/30/21 [History Last Taken Unknown] digoxin 125 mcg (0.125 mg) tablet 125 mcg PO DAILY #90 tabs 09/09/22 [Rx Last Taken Unknown] omeprazole magnesium 20 mg tablet,delayed release (Prilosec OTC) 20 mg PO DAILY 11/06/22 [History Last Taken Unknown] carvedilol 3.125 mg tablet 3.125 mg PO BID #60 tabs 11/27/22 [Rx Last Taken Unknown] furosemide 40 mg tablet 40 mg PO DAILY #90 tabs 11/27/22 [Rx Last Taken Unknown] rivaroxaban 20 mg tablet (Xarelto) 20 mg PO DAILY #90 tabs 11/27/22 [Rx Last Taken Unknown] Allergy/AdvReac Type Severity Reaction Status Date / Time Sulfa (Sulfonamide Allergy sores in Verified 12/03/22 06:11 Antibiotics) mouth sulfamethoxazole Allergy Sores in Verified 12/03/22 06:11 [From Bactrim] mouth Family History (Reviewed 11/28/22 @ 15:58 by Valentina Davidson OPERATIONS RESEARCH DIRECTOR, OPERATIONS RESEARCH DIRECTOR-C) Mother Diabetes Father Congestive heart failure Flores's lung Sister Myocardial infarction CAD (coronary artery disease) Diabetes Brother Diabetes Surgical History (Reviewed 11/28/22 @ 15:58 by Valentina Davidson OPERATIONS RESEARCH DIRECTOR, OPERATIONS RESEARCH DIRECTOR-C) Finger laceration (02/27/18) History of appendectomy History of arthroscopic knee surgery History of bilateral cataract extraction History of colonoscopy (05/31/14) History of foot fracture History of left heart catheterization (04/21/18) History of left knee replacement (05/09/15) History of tonsillectomy and adenoidectomy Right carpal tunnel syndrome (03/25/18) Social History (Reviewed 11/28/22 @ 15:58 by Valentina Davidson OPERATIONS RESEARCH DIRECTOR, OPERATIONS RESEARCH DIRECTOR-C) Smoking Status: Never smoker alcohol intake: current alcohol intake frequency: a few times a week caffeine: Yes Type: coffee Number of servings: 1 and tea Number of servings: 1 ROS ROS ED Constitutional Constitutional ED: Reports systems reviewed and no addt'l complaints, except as documented; Denies body ache(s), change in weight or chills Eyes Eyes: Denies acute decrease in peripheral vision, change in vision, double vision or loss of vision ENT ENT ED: Reports none; Denies ear pain, lip swelling, loss taste/smell, neck pain, otalgia or sore throat Cardiovascular Cardiovascular: Reports none and chest pain; Denies abdominal pain, chest pain with activity, leg edema, lightheadedness, palpitations, rapid heart rate or syncope Respiratory/Chest Respiratory/Chest: Reports none and shortness of breath with exertion; Denies change in mental status, dry cough, dyspnea, hemoptysis or shortness of breath at rest Gastrointestinal Gastrointestinal: Reports none; Denies abdominal pain, change in stool character, diarrhea, hematemesis, hematochezia, melena, rectal bleeding or vomiting Genitourinary Genitourinary ED: Reports none; Denies abdominal discomfort, anuria, dysuria, genital pain or polyuria Musculoskeletal Musculoskeletal: Reports none; Denies arthralgias, back pain, difficulty walking, extremity pain, muscle weakness or myalgias Integumentary Reports none; Denies abscess or rash Neurologic Neurologic: Reports none; Denies abnormal gait, confusion, focal weakness, frequent falls, headache(s), loss of vision, numbness, paresthesias, radicular pain, vertigo or weakness Psychiatric Psychiatric: Reports systems reviewed and no addt'l complaints, except as documented and none; Denies behavioral changes, confusion, difficulty concentrating, hallucinations, suicidal ideation, tactile hallucinations or visual hallucinations Endocrine Endocrinology: Denies none, cold intolerance, excessive sweating, fatigue or heat intolerance Hematologic/Lymphatic Hematologic/Lymphatic: Reports none; Denies anemia, easy bleeding or easy bruising Allergic/Immunologic Allergic/Immunologic ED: Denies as per HPI, none, lip swelling, mouth swelling, throat swelling, tongue swelling or hives EXAM Physical Exam Const Vital Signs: 12/03/22 06:09 12/03/22 06:12 12/03/22 06:12 Temperature 97.6 F L Temperature Source Oral Pulse Rate 75 74 Respiratory Rate 17 23 H Respiratory Effort Normal Blood Pressure 117/80 Blood Pressure Mean 92 Pulse Ox 97 97 Oxygen Delivery Method Room Air Room Air 12/03/22 06:20 12/03/22 07:08 12/03/22 07:33 Temperature Temperature Source Pulse Rate 72 63 Respiratory Rate 16 17 Respiratory Effort Blood Pressure 114/89 H 114/89 H Blood Pressure Mean 97 97 Pulse Ox 98 98 97 Oxygen Delivery Method Room Air Room Air Positive well nourished and well developed General Appearance ED: well developed and NAD HEENT Reports TM's clear and moist mucous membranes normocephalic and atraumatic; Negative for trauma or tenderness Tympanic Membrane ED: Yes TM's clear Eyes PERRL and EOMs intact bilaterally General Eye ED: Negative for pale conjunctiva or scleral icterus Neck no lymphadenopathy, supple and no JVD General: Negative for tenderness Chest Wall inspection of chest normal and palpation of chest normal Chest: Negative for tenderness Resp normal respiratory effort and clear to auscultation bilaterally Effort and Inspection: Negative for respiratory distress or pain with movement Auscultation: Negative for rhonchi, wheezes or diminished lung sounds Cardio regular rate, S1 normal heart sound, S2 normal heart sound and no murmurs; Negative for regular rhythm Rhythm: abnormal rhythm irregularly irregular Peripheral Pulses: pulses 2+ throughout GI normal to inspection, nondistended, normoactive bowel sounds, soft to palpation, non-tender, non-distended and no masses Back/Spine no CVA tenderness and no thoracic nor lumbar tenderness Extremity normal to inspection General Extremety ED: Negative for edema General Extremity: Negative for edema Neuro oriented x3, CN's II-XII intact bilaterally, no sensory deficits noted and gait normal Sensorium / Orientation: awake, alert, oriented to person, oriented to place and oriented to time Motor Exam: strength 5/5 throughout and strength abnormal Psych mental status grossly normal Skin no rashes or lesions noted and no wounds Heart Score History: Highly Suspicious ECG: Nonspecific Repolarization Age: >/= 65 years Risk Factors: 1 or 2 Risk Factors Troponin: >1 - <3 Normal Limit Score: 7 MDM MDM MDM Narrative Medical decision making narrative: Patient presents with chest pain and history of exertional dyspnea over the last 2 months. Chest pain currently resolved. In the differential would be acute coronary syndrome versus PE which I feel is less likely given that he is on Xarelto. IV line established. Patient placed on bilingual research interviewer. EKG obtained showed atrial fibrillation with a ventricular rate of 72 bpm with old septal infarct. CBC with differential was unremarkable. Chemistries unremarkable. Troponin was elevated at 133. Creatinine elevated 1.65. Patient did receive aspirin on arrival in the emergency department. 1 view chest x-ray showed no evidence of infiltrate or pneumothorax or acute disease process. Case will be discussed with hospitalist and mold making supervisor on-call. Patient will be admitted for non-ST elevation PA. It is noted that patient had recent echocardiogram on the fourth of the month that showed an ejection fraction of 25% with global left ventricular wall motion abnormality and hypokinesis. This is in contrast to prior echo in August 2021 that showed an ejection fraction of 55% with no abnormalities otherwise. Patient has been experiencing exertional dyspnea for the last 2 months. After discussing results with patient and family members he tells me now that he is having more chest discomfort. Repeat EKG obtained showed atrial fibrillation with a rate of 68 bpm with old septal infarct no change from first EKG. Patient will be given nitroglycerin and will have Nitropaste placed to the anterior chest wall. Hospitalist made aware. Lab Data Attestation: I reviewed the patient's lab results. Labs: Laboratory Results - last 24 hr 12/03/22 06:11 WBC 8.1 RBC 4.72 Hgb 14.9 Hct 46.8 MCV 99.2 H MCH 31.6 MCHC 31.8 L RDW Std Deviation 48.2 H RDW Coeff of Jair 13.2 Plt Count 198 MPV 11.0 Immature Gran % (Auto) 0.200 Neut % (Auto) 58.7 Lymph % (Auto) 22.4 [place] % (Auto) 12.4 H Eos % (Auto) 5.3 H Baso % (Auto) 1.0 Absolute Neuts (auto) 4.8 Absolute Lymphs (auto) 1.81 Nucleated RBC % 0 Sodium 140 Potassium 4.2 Chloride 105 Carbon Dioxide 32.0 Anion Gap 3 L BUN 31 H Creatinine 1.65 H Estim Creat Clear Calc 39.73 Est GFR (MDRD) Af Amer 53 L Est GFR (MDRD) Non-Af 44 L BUN/Creatinine Ratio 18.8 Glucose 110 H Calcium 8.6 Troponin I High Sens 133 H* Digoxin 0.97 Radiography Diagnostic Testing: Clinical Impression(s) from Imaging Studies Chest X-Ray 12/03/22 06:20 IMPRESSION: Hazy opacification in the lateral right midlung and left lung base concerning for typical or atypical pneumonia in the appropriate setting. If there is absence of clinical pneumonia CT fifth angiogram may be beneficial. Radiographic follow-up recommended after treatment to ensure resolution. Electronically Signed: Felix Marie MD at 6:54 EDT , 1 view chest x-ray obtained interpreted by myself as no evidence of infiltrate or pneumothorax or acute disease process. The nuclear instructor thought there may be hazy opacification in the left lower lobe which could be consistent with a pneumonia in the correct clinical setting otherwise recommended possibly getting a CTA of the chest to evaluate further. Patient clinically does not have pneumonia. EKG Initial EKG: Attestation: I personally reviewed and interpreted this EKG as follows: Comments: Atrial fibrillation with rate of 72 bpm with old septal infarct Prior EKG tracings: available for review Prior: Unchanged Discharge Plan Dx/Rx/DC Orders Clinical Impression: Acute renal insufficiency, Non-ST elevated myocardial infarction, Chest pain Disposition Disposition: Acute Care Hospital [facility]
[2022-12-03] MEDS: Aspirin 81 MG TAB.CHEW 162 MG PO (06:31)
[2022-12-03] MEDS: 0.9% Normal Saline (1000mL) 1,000 ML 150 ML IV (06:31)
[2022-12-03 06:41] LABS: Absolute Lymphocyte Count 1.81 X10^3/uL (0.83-4.51); Absolute Neutrophil Count 4.8 X10^3/uL (2.0-7.7); Basophil# 0.08 X10^3/uL; Eosinophil# 0.43 X10^3/uL; Eosinophils% 5.3 % (0-5); Hematocrit 46.8 % (40-54); Hemoglobin 14.9 g/dL (13.0-16.5); Lymphocyte # 1.81 X10^3/ul (0.83-4.51); Lymphocyte % 22.4 % (19-41); Mean Corp Hgb Conc 31.8 g/dL (32-36); Mean Corpuscular Hgb 31.6 pg (27.0-32.0); Mean Corpuscular Volume 99.2 fL (80-94); Monocyte% 12.4 % (0-10); NRBC Flagged by Analyzer 0 % (0-5); Neutrophil # 4.75 X10^3/uL (2.7-7.7); Neutrophil % 58.7 % (47-70); Platelet Count 198 K/mm3 (150-450); RBC Distribution Width CV 13.2 % (11.6-14.6); RBC Distribution Width SD 48.2 fl (35.1-43.9); Red Blood Count 4.72 M/mm3 (4.6-6.2); White Blood Count 8.1 K/mm3 (4.4-11.0)
[2022-12-03 07:03] LABS: Anion Gap 3 (5-15); BUN 31 mg/dL (7-18); BUN/Creat Ratio 18.8 RATIO (10-20); Calcium,Total 8.6 mg/dL (8.5-10.1); Chloride 105 mmol/L (98-107); Creatinine, Serum 1.65 mg/dL (0.70-1.30); EST Glomerular Filtration Rate 44 mL/min (>60); Est Glom Filt Rate - Afr Amer 53 mL/min (>60); Estimated Creatinine Clearance 39.73 ml/min; Glucose 110 mg/dL (74-106); Potassium 4.2 mmol/L (3.5-5.1); Sodium Level 140 mmol/L (136-145); Troponin-I HS (w/2H Reflex) 133 pg/mL (3.0-78.0)
--- NOTE | 2022-12-03 07:20 | PCM.HP.STD ---
HPI - General General Date of Admission: 12/03/22 Date of Service: 12/03/22 Chief Complaint: chest pain HPI Narrative CHASITY PINO, is a 72 M with a PMH as outlined who presents via the ED on 12/03/2022 with a complaint of chest pain. Chest pain woke him up at ~ 3am on the day of admission. HE had had an associated exertional shortness of breath. HE denied any dizziness, nausea, vomiting or any other symptoms. Review of systems was otherwise negative. He was seen in his elevator supervisor's office a few weeks ago o/a of shortness of breath and 2D echo done on 11/20/2022 showed EF of 25% with moderate to severe global hypokinesis of the left ventricle, moderately severe global LV systolic dysfunction. His cardiology team had thought the decrease in EF from 50% from previous echo to 25% this time was due to his afib, and plan was for him to have a cardioversion later this month. However, this chest pain occurred so he came in to the ED. Vitals in the ED were BP of 114/89, OH of 72, RR of 16 and he was saturating at 98% on room air. CNC showed hb of 14.9, wbc of 8.1 and platelet of 198. Chemistry showed sodium of 140, potassium of 4.2 and cr of 1.65. Initial troponin was 133. CXR showed hazy opacification in the lateral right midlung and left lung base concerning for typical or atypical pneumonia. EKG showed no acute ST changes. He is being admitted to be managed for nonstemi. [facility] Medical History Abnormal EKG Arthritis Bone spur of right foot Coronary artery calcification Essential hypertension Hyperlipidemia saw superintendent (current) use of anticoagulants New onset atrial fibrillation Paroxysmal atrial fibrillation Premature ventricular contractions Home Medications tamsulosin 0.4 mg capsule (Flomax) 0.4 mg PO DAILY urine 07/30/21 [History Last Taken 12/02/22] digoxin 125 mcg (0.125 mg) tablet 125 mcg PO DAILY #90 tabs 09/09/22 [Rx Last Taken 12/02/22] omeprazole magnesium 20 mg tablet,delayed release (Prilosec OTC) 20 mg PO DAILY stomach 11/06/22 [History Last Taken 12/02/22] carvedilol 3.125 mg tablet 3.125 mg PO BID #60 tabs 11/27/22 [Rx Last Taken 12/02/22] furosemide 40 mg tablet 40 mg PO DAILY #90 tabs 11/27/22 [Rx Last Taken 12/02/22] rivaroxaban 20 mg tablet (Xarelto) 20 mg PO DAILY #90 tabs 11/27/22 [Rx Last Taken 12/02/22] Allergy/AdvReac Type Severity Reaction Status Date / Time Sulfa (Sulfonamide Allergy sores in Verified 12/03/22 06:11 Antibiotics) mouth sulfamethoxazole Allergy Sores in Verified 12/03/22 06:11 [From Bactrim] mouth Family History (Reviewed 11/28/22 @ 15:58 by Valentina Davidson PROGRAM COORDINATOR, PROGRAM COORDINATOR-C) Mother Diabetes Father Congestive heart failure Flores's lung Sister Myocardial infarction CAD (coronary artery disease) Diabetes Brother Diabetes Surgical History (Reviewed 11/28/22 @ 15:58 by Valentina Davidson PROGRAM COORDINATOR, PROGRAM COORDINATOR-C) Finger laceration (02/27/18) History of appendectomy History of arthroscopic knee surgery History of bilateral cataract extraction History of colonoscopy (05/31/14) History of foot fracture History of left heart catheterization (04/21/18) History of left knee replacement (05/09/15) History of tonsillectomy and adenoidectomy Right carpal tunnel syndrome (03/25/18) Social History Smoking Status: Never smoker alcohol intake: current alcohol intake frequency: a few times a week caffeine: Yes Type: coffee Number of servings: 1 and tea Number of servings: 1 ROS Constitutional Constitutional: Denies anorexia, chills, fatigue, fever(s), malaise or weakness ENT HEENT: Denies dysphagia, epistaxis, headache(s), hearing loss or throat swelling Cardiovascular Cardiovascular: Reports chest pain and palpitations; Denies orthopnea or paroxysmal nocturnal dyspnea Respiratory/Chest Respiratory/Chest: Denies cough, shortness of breath at rest or shortness of breath with exertion Gastrointestinal Gastrointestinal: Denies abdominal pain, diarrhea, dyspepsia, nausea or vomiting Musculoskeletal Musculoskeletal: Denies back pain, joint stiffness or joint swelling Integumentary Integumentary: Denies dry skin Neurologic Neurologic: Denies confusion, dizziness, focal weakness, headache(s), numbness or seizures Psychiatric Psychiatric: Denies anxiety Endocrine Endocrinology: Denies change in body appearance Vital Signs Vital Signs Vital Signs: 12/03/22 06:09 12/03/22 06:12 12/03/22 06:12 Temperature 97.6 F L Temperature Source Oral Pulse Rate 75 74 Respiratory Rate 17 23 H Respiratory Effort Normal Blood Pressure 117/80 Blood Pressure Mean 92 Pulse Ox 97 97 Oxygen Delivery Method Room Air Room Air 12/03/22 06:20 12/03/22 07:08 Temperature Temperature Source Pulse Rate 72 Respiratory Rate 16 Respiratory Effort Blood Pressure 114/89 H Blood Pressure Mean 97 Pulse Ox 98 98 Oxygen Delivery Method Room Air Room Air Weight Weight: 163 lb 2.273 oz Body Mass Index (BMI) 24.7 Physical Exam Const alert, oriented x3 and no apparent distress General Appearance: cooperative and well developed HEENT normocephalic, head/scalp atraumatic, moist oral mucous membranes and oropharynx normal Eyes PERRL and EOMs intact bilaterally Neck no lymphadenopathy and supple Lymph Lymphatic: no lymphadenopathy noted and no lymphedema noted Resp normal respiratory effort, normal air movement and clear to auscultation bilaterally Cardio regular rate, S1 normal heart sound, S2 normal heart sound and no murmurs GI normal to inspection, nondistended, normoactive bowel sounds, soft to palpation, non-tender and non-distended Extremity normal capillary refill, no clubbing, cyanosis or edema and no calf tenderness Skin General Skin Exam: no breakdown Neuro CN's II-XII intact bilaterally and no focal motor deficits Motor Exam: strength 5/5 throughout and general weakness Psych thought process normal and cooperative Appearance: appropriate Results Lab / Micro Data 12/03/22 06:11 12/03/22 14:52 Labs: Laboratory Results - last 24 hr 12/03/22 06:11: WBC 8.1, RBC 4.72, Hgb 14.9, Hct 46.8, MCV 99.2 H, MCH 31.6, MCHC 31.8 L, RDW Std Deviation 48.2 H, RDW Coeff of Jair 13.2, Plt Count 198, MPV 11.0, Immature Gran % (Auto) 0.200, Neut % (Auto) 58.7, Lymph % (Auto) 22.4, [place] % (Auto) 12.4 H, Eos % (Auto) 5.3 H, Baso % (Auto) 1.0, Absolute Neuts (auto) 4.8, Absolute Lymphs (auto) 1.81, Nucleated RBC % 0, Sodium 140, Potassium 4.2, Chloride 105, Carbon Dioxide 32.0, Anion Gap 3 L, BUN 31 H, Creatinine 1.65 H, Estim Creat Clear Calc 39.73, Est GFR (MDRD) Af Amer 53 L, Est GFR (MDRD) Non-Af 44 L, BUN/Creatinine Ratio 18.8, Glucose 110 H, Calcium 8.6, Troponin I High Sens 133 H* Radiology Impression Chest X-Ray 12/03/22 06:20 IMPRESSION: Hazy opacification in the lateral right midlung and left lung base concerning for typical or atypical pneumonia in the appropriate setting. If there is absence of clinical pneumonia CT fifth angiogram may be beneficial. Radiographic follow-up recommended after treatment to ensure resolution. Electronically Signed: Felix Marie MD at 6:54 EDT , Assessment & Plan Assessment/Plan (1) Chest pain: PLAN: Plan #Nonstemi Patient admitted with a complaint of chest pain and palpitations. He does have A-fib and had 2D echo on November 20, 2022 which showed his EF had reduced to 25%. It was thought to be due to A-fib and he was due for cardioversion on the of this month. However his symptoms persisted so he came into the ED. Initial troponin was 133 and trended down to 114. Cardiology consulted. Patient last took his Eliquis yesterday morning. For cardiac cath tomorrow. On aspirin and high intensity statin. Started on heparin drip by cardiology. Will not repeat 2D echo as he had an echo just about 2 weeks ago. Had a cardiac cath in 2019 which showed clean coronaries. #Atrial fibrillation: On xarelto which is currently on hold. On carvedilol and digoxin. #CKD stage III: Creatinine is 1.43 with a baseline creatinine of around 1.6. Will monitor. #BPH: on flomax DVT prophylaxis: on heparin drip Code status; full code Patient counseled extensively about different types of CODE STATUS including full code, DNR CCA and DNR CCA. Patient elects to be full code. Total [id number] time 17 minutes. Charges/Coding Visit Charges Inpatient E&M: 62085 Init Hosp L3 Procedures Hospitalists Procedures: 16498 Advncd Care Plan 30 Min
[2022-12-03 07:24] LABS: Digoxin Level 0.97 ng/mL (0.80-2.00)
--- NOTE | 2022-12-03 07:29 | NURSING ---
PUC KORAM CHEST PAIN,NSTEMI
[2022-12-03] MEDS: Nitroglycerin Oint 1 INCH PACKET TD (07:45)
--- NOTE | 2022-12-03 08:15 | EKG12_ITS ---
Test Reason : AFIB Blood Pressure : / mmHG Vent. Rate : 068 BPM Atrial Rate : 000 BPM P-R Int : 000 ms QRS Dur : 086 ms QT Int : 370 ms P-R-T Axes : 000 137 170 degrees QTc Int : 393 ms Atrial fibrillation Right axis deviation Pulmonary disease pattern Septal infarct (cited on or before 25-MAR-2018) Abnormal ECG When compared with ECG of 25-MAR-2018 07:58, QRS axis Shifted right Non-specific change in ST segment in Inferior leads ST now depressed in Anterior leads Nonspecific T wave abnormality now evident in Anterolateral leads Confirmed by ADOLFO QUACH, EMILY ([id number]), telegraph editor TYLOR THIBODEAUX ([id number]) on 12/04/2022 2:23:04 PM Referred By: KWAN Confirmed By:EMILY MATA MD
[2022-12-03 08:38] LABS: Reflex Troponin-HS? (from REC) Y
[2022-12-03 09:31] LABS: Troponin-I HS 114 pg/mL (3.0-78.0)
--- NOTE | 2022-12-03 10:10 | CASEMGMT ---
VIN ARANA Face to Face with patient for initial transition planning/care coordination assessment. RN CM introduced self and role at [facility]. Patient lying in bed, alert and oriented, and daughter at bedside. Patient willing to participate in assessment and is able to answer all questions appropriately. Care providers, pharmacy, and demographics verified. Patient wishes to discharge home, denies need for home health at this time. Patient states he has no further needs or concerns at this time. CM to follow for discharge planning needs that may arise. PCP: Jadiel Specialists: [place], cardiology; Beverly real time analyst Preferred Pharmacy: Azael Reyes; [facility] Retail at discharge Insurance: Team Apart Prescription Benefit: yes Living Will/HPOA: yes, [place]: , son, daughter Living Arrangements: Patient lives with in a 2 story home. Patient is independent and able to ambulate stairs. Transportation: self, DME/HHC: Patient has shower chair, cane, walker, crutches at home. Patient has had HHC in the past. No previous SNF. Disposition Plan: Patient to discharge home with family support and follow-up plans in place. Lien SAGE, RN, CM
--- NOTE | 2022-12-03 10:56 | NURSING ---
C/O left chest pain of a 11. Burps and it is relieved to a 2. Will monitor.
[2022-12-03] MEDS: Furosemide 40 MG Tablet PO (11:05)
[2022-12-03] MEDS: Tamsulosin HCl 0.4 MG Capsule PO (11:05)
[2022-12-03] MEDS: Digoxin 125 MCG Tablet PO (11:05)
[2022-12-03] MEDS: Carvedilol 3.125 MG TABLET PO ×2 (11:05→17:39)
[2022-12-03] MEDS: Pantoprazole Sodium 20 MG Tablet PO (11:05)
[2022-12-03] MEDS: Acetaminophen 325 MG Tablet 650 MG PO (11:08)
--- NOTE | 2022-12-03 11:38 | CASEMGMT ---
Social Work SW spoke w/pt and , let him know that pt does not have LW/POA on file, asked to bring in papers as able. As per pt, is POA. and pt state understanding. KURTIS Johnson
[2022-12-03 15:16] LABS: Anion Gap 6 (5-15); BUN 26 mg/dL (7-18); BUN/Creat Ratio 18.2 RATIO (10-20); Calcium,Total 8.7 mg/dL (8.5-10.1); Chloride 105 mmol/L (98-107); Creatinine, Serum 1.43 mg/dL (0.70-1.30); EST Glomerular Filtration Rate 52 mL/min (>60); Est Glom Filt Rate - Afr Amer 63 mL/min (>60); Estimated Creatinine Clearance 45.84 ml/min; Glucose 139 mg/dL (74-106); Magnesium 2.4 mg/dL (1.6-2.6); Potassium 3.9 mmol/L (3.5-5.1); Sodium Level 139 mmol/L (136-145)
--- NOTE | 2022-12-03 16:15 | PCM.CONS.C ---
Assessment & Plan Assessment/Plan (1) Non-ST elevated myocardial infarction: PLAN: Patient's mild elevation in troponin is likely from his cardiomyopathy. However patient also complains of epigastric discomfort and is very concerned about the presence of severe CAD. Discussed treatment options with the patient in detail. We will proceed with coronary angiography tomorrow. HPI Consult Data Date of Consult: 12/03/22 HPI Narrative HPI Narrative: CHASITY PINO, is a 72 M who presents with epigastric discomfort. Patient has history of atrial fibrillation and new onset LV dysfunction. 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 Patient had coronary angiogram in 2019 which did not reveal any significant stenoses. Review of systems: All systems reviewed. 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 New onset atrial fibrillation Paroxysmal atrial fibrillation Premature ventricular contractions Home Medications tamsulosin 0.4 mg capsule (Flomax) 0.4 mg PO DAILY urine 07/30/21 [History Last Taken 12/02/22] digoxin 125 mcg (0.125 mg) tablet 125 mcg PO DAILY #90 tabs 09/09/22 [Rx Last Taken 12/02/22] omeprazole magnesium 20 mg tablet,delayed release (Prilosec OTC) 20 mg PO DAILY stomach 11/06/22 [History Last Taken 12/02/22] carvedilol 3.125 mg tablet 3.125 mg PO BID #60 tabs 11/27/22 [Rx Last Taken 12/02/22] furosemide 40 mg tablet 40 mg PO DAILY #90 tabs 11/27/22 [Rx Last Taken 12/02/22] rivaroxaban 20 mg tablet (Xarelto) 20 mg PO DAILY #90 tabs 11/27/22 [Rx Last Taken 12/02/22] Allergy/AdvReac Type Severity Reaction Status Date / Time Sulfa (Sulfonamide Allergy sores in Verified 12/03/22 06:11 Antibiotics) mouth sulfamethoxazole Allergy Sores in Verified 12/03/22 06:11 [From Bactrim] mouth Family History Mother Diabetes Father Congestive heart failure Flores's lung Sister Myocardial infarction CAD (coronary artery disease) Diabetes Brother Diabetes Surgical History (Reviewed 11/28/22 @ 15:58 by Valentina Davidson SELF SEALING FUEL TANK REPAIRER, SELF SEALING FUEL TANK REPAIRER-C) Finger laceration (02/27/18) History of appendectomy History of arthroscopic knee surgery History of bilateral cataract extraction History of colonoscopy (05/31/14) History of foot fracture History of left heart catheterization (04/21/18) History of left knee replacement (05/09/15) History of tonsillectomy and adenoidectomy Right carpal tunnel syndrome (03/25/18) Social History (Reviewed 11/28/22 @ 15:58 by Valentina Davidson SELF SEALING FUEL TANK REPAIRER, SELF SEALING FUEL TANK REPAIRER-C) Smoking Status: Never smoker alcohol intake: current alcohol intake frequency: a few times a week caffeine: Yes Type: coffee Number of servings: 1 and tea Number of servings: 1 Physical Exam Const alert and oriented x3 HEENT normocephalic Eyes no scleral icterus Resp normal respiratory effort Extremity no pedal edema Skin no rashes or lesions noted Psych mental status grossly normal Risk Stratification Risk Stratification Applicable: No Charges/Coding Visit Charges Inpatient E&M: 92215 Init Hosp L2 Objective Data Vital Signs: Vital Signs Temp Pulse Resp BP Pulse Ox O2 Del Method 97.6 F L 75 16 99/61 93 Room Air 12/03/22 14:55 12/03/22 14:55 12/03/22 14:55 12/03/22 14:55 12/03/22 14:55 12/03/22 14:55 Oxygen Delivery Method Room Air Weight: 162 lb 0.636 oz Body Mass Index (BMI) 24.6 Intake & Output: Intake and Output for Last 24 Hours 12/01/22 12/02/22 12/03/22 23:59 23:59 23:59 Intake Total 510 / 510 Balance 510 / 510 Lab / Micro Data 12/03/22 06:11 12/03/22 14:52 Labs: Laboratory Results - last 24 hr 12/03/22 06:11: WBC 8.1, RBC 4.72, Hgb 14.9, Hct 46.8, MCV 99.2 H, MCH 31.6, MCHC 31.8 L, RDW Std Deviation 48.2 H, RDW Coeff of Jair 13.2, Plt Count 198, MPV 11.0, Immature Gran % (Auto) 0.200, Neut % (Auto) 58.7, Lymph % (Auto) 22.4, [place] % (Auto) 12.4 H, Eos % (Auto) 5.3 H, Baso % (Auto) 1.0, Absolute Neuts (auto) 4.8, Absolute Lymphs (auto) 1.81, Nucleated RBC % 0, Sodium 140, Potassium 4.2, Chloride 105, Carbon Dioxide 32.0, Anion Gap 3 L, BUN 31 H, Creatinine 1.65 H, Estim Creat Clear Calc 39.73, Est GFR (MDRD) Af Amer 53 L, Est GFR (MDRD) Non-Af 44 L, BUN/Creatinine Ratio 18.8, Glucose 110 H, Calcium 8.6, Troponin I High Sens 133 H*, Digoxin 0.97 12/03/22 08:50: Troponin I High Sens 114 H 12/03/22 14:52: Sodium 139, Potassium 3.9, Chloride 105, Carbon Dioxide 28.0, Anion Gap 6, BUN 26 H, Creatinine 1.43 H, Estim Creat Clear Calc 45.84, Est GFR (MDRD) Af Amer 63, Est GFR (MDRD) Non-Af 52 L, BUN/Creatinine Ratio 18.2, Glucose 139 H, Calcium 8.7, Magnesium 2.4 Cardiology Labs/Tests 12/03/22 06:11: WBC 8.1, RBC 4.72, Hgb 14.9, Hct 46.8, MCV 99.2 H, MCH 31.6, MCHC 31.8 L, Plt Count 198, MPV 11.0, Immature Gran % (Auto) 0.200, Neut % (Auto) 58.7, Lymph % (Auto) 22.4, [place] % (Auto) 12.4 H, Eos % (Auto) 5.3 H, Baso % (Auto) 1.0, Absolute Neuts (auto) 4.8, Nucleated RBC % 0, Sodium 140, Potassium 4.2, Chloride 105, Carbon Dioxide 32.0, Anion Gap 3 L, BUN 31 H, Creatinine 1.65 H, Est GFR (MDRD) Af Amer 53 L, Est GFR (MDRD) Non-Af 44 L, BUN/Creatinine Ratio 18.8, Glucose 110 H, Calcium 8.6, Digoxin 0.97 12/03/22 14:52: Sodium 139, Potassium 3.9, Chloride 105, Carbon Dioxide 28.0, Anion Gap 6, BUN 26 H, Creatinine 1.43 H, Est GFR (MDRD) Af Amer 63, Est GFR (MDRD) Non-Af 52 L, BUN/Creatinine Ratio 18.2, Glucose 139 H, Calcium 8.7, Magnesium 2.4 Rhythm: EKG: ECHO: Stress Test: Cardiac Cath: PCI: CT Surgery: Holter monitor: EPS: PPM: CXR: Chest CT Scan: Radiography Diagnostic Testing: Radiology Impression Chest X-Ray 12/03/22 06:20 IMPRESSION: Hazy opacification in the lateral right midlung and left lung base concerning for typical or atypical pneumonia in the appropriate setting. If there is absence of clinical pneumonia CT fifth angiogram may be beneficial. Radiographic follow-up recommended after treatment to ensure resolution. Electronically Signed: Felix Marie MD at 6:54 EDT ,
[2022-12-03 17:30] LABS: International Normalized Ratio 1.4; Prothrombin Time (Protime)PT. 17.4 SECONDS (11.7-14.9)
[2022-12-03 17:31] LABS: Partial Thromboplast Time 31.2 Seconds (24.1-36.2)
[2022-12-03] MEDS: 0.9% Saline Lock 10 ML Syringe IV (17:39)
[2022-12-03] MEDS: HEPARIN/D5w 25,000 UNITS 25,000 UNITS/250 ML IV.SOLN. 9 UNITS CONT INF (17:39)
[2022-12-04] VITALS (15 sets, daily range): BP systolic 97–122; BP diastolic 65–95; PULSE 52–73; RESP 16–18; TEMP 36.1–36.6; O2SAT 93–97
[2022-12-04 00:26] LABS: Partial Thromboplast Time 61.5 Seconds (24.1-36.2)
[2022-12-04 05:19] LABS: Absolute Lymphocyte Count 1.72 X10^3/uL (0.83-4.51); Absolute Neutrophil Count 4.6 X10^3/uL (2.0-7.7); Basophil# 0.07 X10^3/uL; Basophil% 0.9 % (0-1); Eosinophil# 0.56 X10^3/uL; Eosinophils% 7.1 % (0-5); Hematocrit 43.1 % (40-54); Hemoglobin 14.1 g/dL (13.0-16.5); Lymphocyte # 1.72 X10^3/ul (0.83-4.51); Lymphocyte % 21.9 % (19-41); Mean Corp Hgb Conc 32.7 g/dL (32-36); Mean Corpuscular Hgb 31.6 pg (27.0-32.0); Mean Corpuscular Volume 96.6 fL (80-94); Mean Platelet Vol. 10.5 fl (6.2-12.0); Monocyte# 0.87 X10^3/uL; Monocyte% 11.1 % (0-10); NRBC Flagged by Analyzer 0 % (0-5); Neutrophil % 58.6 % (47-70); Platelet Count 188 K/mm3 (150-450); RBC Distribution Width CV 13.1 % (11.6-14.6); RBC Distribution Width SD 46.5 fl (35.1-43.9); Red Blood Count 4.46 M/mm3 (4.6-6.2); White Blood Count 7.9 K/mm3 (4.4-11.0)
[2022-12-04 05:53] LABS: Anion Gap 4 (5-15); BUN 26 mg/dL (7-18); BUN/Creat Ratio 19.4 RATIO (10-20); Calcium,Total 8.6 mg/dL (8.5-10.1); Chloride 105 mmol/L (98-107); Creatinine, Serum 1.34 mg/dL (0.70-1.30); EST Glomerular Filtration Rate 56 mL/min (>60); Est Glom Filt Rate - Afr Amer 68 mL/min (>60); Estimated Creatinine Clearance 48.92 ml/min; Glucose 118 mg/dL (74-106); Potassium 3.9 mmol/L (3.5-5.1); Sodium Level 138 mmol/L (136-145)
--- NOTE | 2022-12-04 05:55 | EKG12_ITS ---
Test Reason : PRE CATH Blood Pressure : / mmHG Vent. Rate : 075 BPM Atrial Rate : 000 BPM P-R Int : 000 ms QRS Dur : 096 ms QT Int : 402 ms P-R-T Axes : 000 139 091 degrees QTc Int : 448 ms Atrial fibrillation Right axis deviation Low voltage QRS Septal infarct , age undetermined Abnormal ECG When compared with ECG of 03-DEC-2022 09:06, MANUAL COMPARISON REQUIRED, DATA IS UNCONFIRMED Confirmed by ADOLFO QUACH, EMILY ([id number]), scientific publications editor TYLOR THIBODEAUX ([id number]) on 12/05/2022 1:42:45 PM Referred By: Confirmed By:EMILY MATA MD
[2022-12-04] MEDS: Carvedilol 3.125 MG TABLET PO (06:09)
[2022-12-04] MEDS: Digoxin 125 MCG Tablet PO (06:09)
[2022-12-04 07:24] LABS: Partial Thromboplast Time 73.3 Seconds (24.1-36.2)
--- NOTE | 2022-12-04 09:13 | NURSING ---
called report to gertrudis in catheterization laboratory technician
[2022-12-04 09:23] LABS: Magnesium 2.4 mg/dL (1.6-2.6)
--- NOTE | 2022-12-04 10:01 | PN.CARD_ITS ---
Subjective Subjective Patient seen and evaluated. Underwent cardiac catheterization today Objective Data Vital Signs: Vital Signs Temp Pulse Resp BP Pulse Ox O2 Del Method 97 F L 73 16 122/80 H 95 Room Air 12/04/22 06:07 12/04/22 06:09 12/04/22 06:07 12/04/22 06:07 12/04/22 07:16 12/04/22 07:50 Oxygen Delivery Method Room Air Weight: 158 lb 8 oz Body Mass Index (BMI) 24.0 Intake & Output: Intake and Output for Last 24 Hours 12/02/22 12/03/22 12/04/22 23:59 23:59 23:59 Intake Total 870 / 1350 666.20 / 666.20 Balance 870 / 1350 666.20 / 666.20 Lab / Micro Data 12/04/22 05:12 12/04/22 05:12 Labs: Laboratory Results - last 24 hr 12/03/22 14:52: Sodium 139, Potassium 3.9, Chloride 105, Carbon Dioxide 28.0, Anion Gap 6, BUN 26 H, Creatinine 1.43 H, Estim Creat Clear Calc 45.84, Est GFR (MDRD) Af Amer 63, Est GFR (MDRD) Non-Af 52 L, BUN/Creatinine Ratio 18.2, Glucose 139 H, Calcium 8.7, Magnesium 2.4 12/03/22 17:07: PT 17.4 H, INR 1.4, APTT 31.2 12/03/22 23:45: APTT 61.5 H 12/04/22 05:12: WBC 7.9, RBC 4.46 L, Hgb 14.1, Hct 43.1, MCV 96.6 H, MCH 31.6, MCHC 32.7, RDW Std Deviation 46.5 H, RDW Coeff of Jair 13.1, Plt Count 188, MPV 10.5, Immature Gran % (Auto) 0.400, Neut % (Auto) 58.6, Lymph % (Auto) 21.9, [place] % (Auto) 11.1 H, Eos % (Auto) 7.1 H, Baso % (Auto) 0.9, Absolute Neuts (auto) 4.6, Absolute Lymphs (auto) 1.72, Nucleated RBC % 0, Sodium 138, P otassium 3.9, Chloride 105, Carbon Dioxide 29.0, Anion Gap 4 L, BUN 26 H, Creatinine 1.34 H, Estim Creat Clear Calc 48.92, Est GFR (MDRD) Af Amer 68, Est GFR (MDRD) Non-Af 56 L, BUN/Creatinine Ratio 19.4, Glucose 118 H, Calcium 8.6, Magnesium 2.4 12/04/22 06:57: APTT 73.3 H Cardiology Labs/Tests 12/03/22 14:52: Sodium 139, Potassium 3.9, Chloride 105, Carbon Dioxide 28.0, Anion Gap 6, BUN 26 H, Creatinine 1.43 H, Est GFR (MDRD) Af Amer 63, Est GFR (MDRD) Non-Af 52 L, BUN/Creatinine Ratio 18.2, Glucose 139 H, Calcium 8.7, Magnesium 2.4 12/03/22 17:07: PT 17.4 H, INR 1.4, APTT 31.2 12/03/22 23:45: APTT 61.5 H 12/04/22 05:12: WBC 7.9, RBC 4.46 L, Hgb 14.1, Hct 43.1, MCV 96.6 H, MCH 31.6, MCHC 32.7, Plt Count 188, MPV 10.5, Immature Gran % (Auto) 0.400, Neut % (Auto) 58.6, Lymph % (Auto) 21.9, [place] % (Auto) 11.1 H, Eos % (Auto) 7.1 H, Baso % (Auto) 0.9, Absolute Neuts (auto) 4.6, Nucleated RBC % 0, Sodium 138, Potassium 3.9, Chloride 105, Carbon Dioxide 29.0, Anion Gap 4 L, BUN 26 H, Creatinine 1.34 H, Est GFR (MDRD) Af Amer 68, Est GFR (MDRD) Non-Af 56 L, BUN/Creatinine Ratio 19.4, Glucose 118 H, Calcium 8.6, Magnesium 2.4 12/04/22 06:57: APTT 73.3 H Rhythm: EKG: ECHO: Stress Test: Cardiac Cath: PCI: CT Surgery: Holter monitor: EPS: PPM: CXR: Chest CT Scan: Physical Exam Const alert, oriented x3 and no apparent distress General Appearance: cooperative HEENT hearing grossly normal bilaterally Head and Scalp: atraumatic Eyes EOMs intact bilaterally Neck General: normal visual inspection Chest inspection of chest normal and palpation of chest normal Resp normal respiratory effort Auscultation: clear to auscultation bilaterally Cardio regular rate, regular rhythm, S1 normal heart sound and S2 normal heart sound Jugular Venous Distention: JVD GI normal to inspection, nondistended, normoactive bowel sounds Extremity normal capillary refill and no pedal edema Peripheral Pulses: Yes pulses 2+ throughout and femoral pulses present Skin no rashes or lesions noted Neuro oriented x3 and CN's II-XII intact bilaterally Psych Appearance: grossly normal and appropriate Assessment & Plan Assessment/Plan (1) Nonischemic cardiomyopathy: PLAN: Patient has nonischemic cardiomyopathy. Underwent cardiac catheterization today which demonstrated nonobstructive coronary arteries. Reduced ejection fraction of 15 to 20% noted. Would commence guideline directed medical therapy Continue carvedilol Continue digoxin for now We will attempt to add JOHNY inhibitor Recommend low-dose diuretic Lasix 20 mg daily (2) Essential hypertension: PLAN: Continue carvedilol (3) Paroxysmal atrial fibrillation: PLAN: We will recommend resuming Xarelto. We will consider a cardioversion after patient has been on anticoagulation for minimum of 4 weeks. I did discuss this with the family in detail and his risk of cerebrovascular accident if he does not follow the recommendations. This has also been discussed with my nurse practitioner in the office who will schedule a cardioversion after 04 January. All family members expressed understanding. Patient can be discharged later today.
--- NOTE | 2022-12-04 10:07 | CL.D_ITS ---
Patient Name: CHASITY PINO Study Date: 12/04/2022 Performing: Louie Brown MD Ht: 68 inches 172.72 cm : 1950 Wt: 158.7 lbs 71.89 kg Age: 72 Gender: male BSA: 1.85 PROCEDURE(S) PERFORMED [id number])LHC/COR/LV CLINICAL PROFILE AND INDICATIONS Indications: Cardiomyopathy Heart Failure: NYHA Class: 3 Stress/Imaging Stress/Image Study Performed: No CAD Presentations: Symptom unlikely to be ischemic. CONCLUSIONS Normal coronary arteries Cardiomyopathy: Dilated RECOMMENDATIONS Medical therapy DESCRIPTION OF PROCEDURE The patient arrived to the procedure lab. The risks and benefits of the procedure as well as a full description of our services here and current unavailability of surgical backup were fully explained to the patient and/or their significant other prior to the catheterization. The Timeout was completed, verifying the correct patient and procedure. The patient's procedural site was prepped and draped in the usual fashion. Local anesthetic was given subcutaneously to right radial region with Lidocaine 2%. Using a modified Seldinger technique, arterial access was obtained via the right radial artery, a 6Fr sheath was inserted. Left Coronary Artery selective angiography was performed in multiple views using a 5 Fr. 4.0 Nerinx catheter. Right Coronary Artery selective angiography was then performed in multiple views using a 5 Fr. 4.0 Nerinx catheter. Left Ventriculography was performed in KILPATRICK projection using a 5 Fr. Pigtail catheter. LV to AO pullback pressures were then recorded.The arterial sheath was pulled and a TR Band was applied for hemostasis w/ 10ml air CORONARY ANGIOGRAPHY DOMINANCE: Right Dominant LEFT HEART ASSESSMENT Left Ventricular Ejection Fraction: by LV Gram 18 % Global Hypokinesis - Severe Depressed Left Ventricular systolic function LEFT MAIN: Angiographically normal LEFT ANTERIOR DESCENDING ARTERY: No significant disease noted CIRCUMFLEX ARTERY: No significant disease noted RIGHT CORONARY ARTERY: No significant disease noted COMPLICATIONS No Complications PROCEDURE MEDICATIONS Versed 1 mg IV Fentanyl 50 mcg IV Oxygen: 2 L/min via nasal cannula Aspirin (325mg) 1 Tabs PO @ 12/04/2022 09:00:19 Heparin given IA 12/04/2022 09:36:15 SUMMARY OF HEMODYNAMIC DATA Time AIR REST ECG 09:06:28 Art 123/68 (86) 09:25:23 AO 129/83 (97) SA 09:37:56 LV 103/15, 21 09:42:18 LV 106/15, 20 09:42:24 LV 100/15, 22 09:43:11 LV 101/15, 22 09:43:17 LVp 96/20, 21 09:43:22 AO 96/55 (72) 09:43:27 Signed By Louie Brown MD On 12/04/2022 10:06:17 Louie Brown MD
[2022-12-04] MEDS: Pantoprazole Sodium 20 MG Tablet PO (10:30)
[2022-12-04] MEDS: Furosemide 40 MG Tablet PO (10:30)
[2022-12-04] MEDS: Tamsulosin HCl 0.4 MG Capsule PO (10:30)
[2022-12-04] MEDS: Flu Vacc QS2023-24(65YR UP)/PF 240 MCG/0.7 ML Syringe IM (10:36)
--- NOTE | 2022-12-04 12:12 | DS.PCM_ITS ---
Providers Date of Admission: 12/03/22 Date of Discharge: 12/04/22 Primary Care Physician: Dr. Dale Duvall MD Reason For Visit: NSTEMI Diagnosis Discharge Diagnosis (1) Nonischemic cardiomyopathy: Status: Acute Code(s): I42.8 - Other cardiomyopathies (2) Essential hypertension: Status: Acute Code(s): I10 - Essential (primary) hypertension (3) Paroxysmal atrial fibrillation: Status: Chronic Code(s): I48.0 - Paroxysmal atrial fibrillation Plan #Nonstemi * Patient admitted with a complaint of chest pain and palpitations. He does have A-fib and had 2D echo on November 20, 2022 which showed his EF had reduced to 25%. It was thought to be due to A-fib and he was due for cardioversion on the of this month. * However his symptoms persisted so he came into the ED. Initial troponin was 133 and trended down to 114. * Cardiology consulted. Patient last took his Eliquis yesterday morning. For cardiac cath tomorrow. * On aspirin and high intensity statin. Started on heparin drip by cardiology. * Will not repeat 2D echo as he had an echo just about 2 weeks ago. * Had a cardiac cath in 2019 which showed clean coronaries. * #Atrial fibrillation: On xarelto which is currently on hold. On carvedilol and digoxin. #CKD stage III: Creatinine is 1.43 with a baseline creatinine of around 1.6. Will monitor. #BPH: on flomax DVT prophylaxis: on heparin drip Code status; full code * Patient counseled extensively about different types of CODE STATUS including full code, DNR CCA and DNR CCA. Patient elects to be full code. * Total [id number] time 17 minutes. Medications at Discharge Home Medications tamsulosin 0.4 mg capsule (Flomax) 0.4 mg PO DAILY urine 07/30/21 omeprazole magnesium 20 mg tablet,delayed release (Prilosec OTC) 20 mg PO DAILY stomach 11/06/22 carvedilol 3.125 mg tablet 3.125 mg PO BID blood pressure #60 tabs 11/27/22 furosemide 40 mg tablet 40 mg PO DAILY diuretic #90 tabs 11/27/22 rivaroxaban 20 mg tablet (Xarelto) 20 mg PO DAILY blood thinner #90 tabs 11/27/22 amiodarone 200 mg tablet 200 mg PO BID #60 tabs 12/04/22 Hospital Course Operations None Procedures Cardiac catheterization Summary of Care Provided Minutes Spent on Discharge: 65 Hospital Course: CHASITY PINO, is a 72 M with a PMH as outlined who presents via the ED on 12/03/2022 with a complaint of chest pain. Chest pain woke him up at ~ 3am on the day of admission. HE had had an associated exertional shortness of breath. HE denied any dizziness, nausea, vomiting or any other symptoms. Review of systems was otherwise negative. He was seen in his nurse staff industrial's office a few weeks ago o/a of shortness of breath and 2D echo done on 11/20/2022 showed EF of 25% with moderate to severe global hypokinesis of the left ventricle, moderately severe global LV systolic dysfunction. His cardiology team had thought the decrease in EF from 50% from previous echo to 25% this time was due to his afib, and plan was for him to have a cardioversion later this month. However, this chest pain occurred so he came in to the ED. Vitals in the ED were BP of 114/89, LA of 72, RR of 16 and he was saturating at 98% on room air. CNC showed hb of 14.9, wbc of 8.1 and platelet of 198. Chemistry showed sodium of 140, potassium of 4.2 and cr of 1.65. Initial troponin was 133. CXR showed hazy opacification in the lateral right midlung and left lung base concerning for typical or atypical pneumonia. EKG showed no acute ST changes. He was admitted to be managed for chest pain to rule out ACS. He had cardiac cath on 12/04/2022 which showed normal coronaries with dilated cardiomyopathy. Plan was for medical management and for patient to have his cardioversion in 4 weeks time. Patient had a run of V. tach during this admission. Patient was asymptomatic throughout. His magnesium was checked and was within normal limits(2.4) and potassium was also normal (3.9). This was discussed with cardiology. Cardiology (DR Brown) recommended discontinuing his digoxin and patient to be started on p.o. amiodarone 200 mg twice daily for 2 weeks and then to continue with 200 mg daily. He was to be given a Holter monitor for 48 hours with results to be sent to Dr. Pate. Patient was couns eled strongly about taking it easy whilst at home and not doing any strenuous activity in light of his reduced EF. 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 Patient, and daughter expressed understanding and were counseled that the cardiology AIRCRAFT MAINTENANCE TECHNICIAN will reach out to him to schedule the cardioversion. Patient was seen prior to discharge. He had no complaints and had an uneventful night. Review of systems was otherwise negative. Labs and vitals reviewed. Home meds reviewed and reconciled. Physical Exam Const alert, oriented x3 and no apparent distress General Appearance: cooperative and well developed HEENT normocephalic, head/scalp atraumatic, hearing grossly normal bilaterally, moist oral mucous membranes and oropharynx normal Mouth: oral and palatal mucosa normal Eyes PERRL and EOMs intact bilaterally Neck no lymphadenopathy and supple Lymph Lymphatic: no lymphadenopathy noted and no lymphedema noted Resp normal respiratory effort, normal air movement and clear to auscultation bilaterally Cardio regular rate, regular rhythm, S1 normal heart sound, S2 normal heart sound and no murmurs GI normal to inspection, nondistended, normoactive bowel sounds, soft to palpation, non-tender and non-distended Extremity normal to inspection, full ROM, normal capillary refill, no clubbing, cyanosis or edema and no calf tenderness Skin no rashes or lesions noted General Skin Exam: no breakdown Neuro oriented x3, CN's II-XII intact bilaterally, moves all extremities and no focal motor deficits Sensorium / Orientation: awake and alert Motor Exam: strength 5/5 throughout and general weakness Psych thought process normal and cooperative Appearance: appropriate Weight / BMI Weight Weight: 158 lb 8 oz Body Mass Index (BMI) 24.0 ABG / Lab / Microbiology Data 12/04/22 05:12 12/04/22 05:12 Laboratory: Laboratory Results - last 24 hr 12/03/22 14:52: Sodium 139, Potassium 3.9, Chloride 105, Carbon Dioxide 28.0, Anion Gap 6, BUN 26 H, Creatinine 1.43 H, Estim Creat Clear Calc 45.84, Est GFR (MDRD) Af Amer 63, Est GFR (MDRD) Non-Af 52 L, BUN/Creatinine Ratio 18.2, Glucose 139 H, Calcium 8.7, Magnesium 2.4 12/03/22 17:07: PT 17.4 H, INR 1.4, APTT 31.2 12/03/22 23:45: APTT 61.5 H 12/04/22 05:12: WBC 7.9, RBC 4.46 L, Hgb 14.1, Hct 43.1, MCV 96.6 H, MCH 31.6, MCHC 32.7, RDW Std Deviation 46.5 H, RDW Coeff of Jair 13.1, Plt Count 188, MPV 10.5, Immature Gran % (Auto) 0.400, Neut % (Auto) 58.6, Lymph % (Auto) 21.9, [place] % (Auto) 11.1 H, Eos % (Auto) 7.1 H, Baso % (Auto) 0.9, Absolute Neuts (auto) 4.6, Absolute Lymphs (auto) 1.72, Nucleated RBC % 0, Sodium 138, Potassium 3.9, Chloride 105, Carbon Dioxide 29.0, Anion Gap 4 L, BUN 26 H, Creatinine 1.34 H, Estim Creat Clear Calc 48.92, Est GFR (MDRD) Af Amer 68, Est GFR (MDRD) Non-Af 56 L, BUN/Creatinine Ratio 19.4, Glucose 118 H, Calcium 8.6, Magnesium 2.4 12/04/22 06:57: APTT 73.3 H D/C Instructions Discharge Diet: Low fat / Low cholesterol Weight Bearing Status: Weight bearing as tolerated Call your doctor if you observe: Fever of 101 or Higher, Shortness of breath, Dizziness, Swelling in the ankles and Chest pain Meaningful Use Info Meaningful Use Diagnoses (Choose all that apply): None applicable Discharge Plan Admission Admit Date/Time: 12/03/22 07:39 Primary Reason for Your Visit: chest pain Attending Provider: Lana Young Primary Care Provider: Dale Dvuall Instructions Patient Instructions: ED Heart Disease Risk Factors Additional Instructions / Restrictions: Patient, his and daughter strongly counseled that patient was to abstain from strenuous activity and to take it very easy on account of his nonischemic cardiomyopathy with a EF reduced to 25%. TO have 48 hour Holter monitor applied before discharge Discharge Orders/Prescriptions Prescriptions: New amiodarone 200 mg tablet 200 mg PO BID Qty: 60 2RF Rx Instructions: take 200mg (one tablet) bid for 2 weeks, till December 18, then continue with one tablet (200mg) daily. Continued tamsulosin [Flomax] 0.4 mg capsule 0.4 mg PO DAILY furosemide 40 mg tablet 40 mg PO DAILY Qty: 90 3RF Xarelto 20 mg tablet 20 mg PO DAILY Qty: 90 4RF Rx Instructions: must administer with a meal/food carvedilol 3.125 mg tablet 3.125 mg PO BID Qty: 60 6RF Rx Instructions: must administer with a meal/food omeprazole magnesium [Prilosec OTC] 20 mg tablet,delayed release (DR/EC) 20 mg PO DAILY Discontinued digoxin 125 mcg (0.125 mg) tablet 125 mcg PO DAILY Qty: 90 3RF Referrals / Follow Up: Dale Duvall MD [Primary Care Provider] - Within 2 Weeks Louie Brown MD [Med Staff - Active Staff] - Within 2 Weeks Disposition Disposition (needs filled in before D/C Order can be placed): Home, Self Care Charges/Coding Visit Charges Inpatient E&M: 36089 Disch Hosp >30min
--- NOTE | 2022-12-04 12:12 | DCINST_ITS ---
Discharge Instructions Diet Discharge Diet: Low fat / Low cholesterol Activity Discharge Activity: Return to Normal Activity Weight Bearing Status: Weight bearing as tolerated Dressing / Incision Call your doctor if you observe: Fever of 101 or Higher, Shortness of breath, Dizziness, Swelling in the ankles and Chest pain Follow Up Care Test Results: Test results from this visit will be discussed in further detail at your follow- up appointment, if applicable. Discharge Plan Admission Admit Date/Time: 12/03/22 07:39 Primary Reason for Your Visit: chest pain Attending Provider: Lana Young Primary Care Provider: Dale Duvall Instructions Patient Instructions: ED Heart Disease Risk Factors Discharge Orders/Prescriptions Prescriptions: Continued tamsulosin [Flomax] 0.4 mg capsule 0.4 mg PO DAILY furosemide 40 mg tablet 40 mg PO DAILY Qty: 90 3RF Xarelto 20 mg tablet 20 mg PO DAILY Qty: 90 4RF Rx Instructions: must administer with a meal/food carvedilol 3.125 mg tablet 3.125 mg PO BID Qty: 60 6RF Rx Instructions: must administer with a meal/food digoxin 125 mcg (0.125 mg) tablet 125 mcg PO DAILY Qty: 90 3RF omeprazole magnesium [Prilosec OTC] 20 mg tablet,delayed release (DR/EC) 20 mg PO DAILY Referrals / Follow Up: Dale Duvall MD [Primary Care Provider] - Within 2 Weeks KevinLouie vega MD [Med Staff - Active Staff] - Within 2 Weeks Disposition Disposition (needs filled in before D/C Order can be placed): Home, Self Care
--- NOTE | 2022-12-04 12:28 | CASEMGMT ---
Patient has order for discharge. RN CM in to discuss needs at discharge. Patient denies needs at discharge. Patient and family had no further questions or concerns.
[2022-12-04 13:59] LABS: Partial Thromboplast Time 33.4 Seconds (24.1-36.2)
--- NOTE | 2022-12-04 15:07 | DCINST_ITS ---
Discharge Instructions Diet Discharge Diet: Low fat / Low cholesterol Activity Discharge Activity: - (Patient counseled strongly to abstain from strenuous activity) Weight Bearing Status: Weight bearing as tolerated Dressing / Incision Call your doctor if you observe: Fever of 101 or Higher, Shortness of breath, Dizziness, Swelling in the ankles and Chest pain Follow Up Care Test Results: Test results from this visit will be discussed in further detail at your follow- up appointment, if applicable. Discharge Plan Admission Admit Date/Time: 12/03/22 07:39 Primary Reason for Your Visit: chest pain Attending Provider: Lana Young Primary Care Provider: Dale Duvall Instructions Patient Instructions: ED Heart Disease Risk Factors Additional Instructions / Restrictions: Patient, his and daughter strongly counseled that patient was to abstain from strenuous activity and to take it very easy on account of his nonischemic cardiomyopathy with a EF reduced to 25%. TO have 48 hour Holter monitor applied before discharge Discharge Orders/Prescriptions Prescriptions: New amiodarone 200 mg tablet 200 mg PO BID Qty: 60 2RF Rx Instructions: take 200mg (one tablet) bid for 2 weeks, till December 18, then continue with one tablet (200mg) daily. Continued tamsulosin [Flomax] 0.4 mg capsule 0.4 mg PO DAILY furosemide 40 mg tablet 40 mg PO DAILY Qty: 90 3RF Xarelto 20 mg tablet 20 mg PO DAILY Qty: 90 4RF Rx Instructions: must administer with a meal/food carvedilol 3.125 mg tablet 3.125 mg PO BID Qty: 60 6RF Rx Instructions: must administer with a meal/food omeprazole magnesium [Prilosec OTC] 20 mg tablet,delayed release (DR/EC) 20 mg PO DAILY Discontinued digoxin 125 mcg (0.125 mg) tablet 125 mcg PO DAILY Qty: 90 3RF Referrals / Follow Up: Dale Duvall MD [Primary Care Provider] - Within 2 Weeks Louie Brown MD [Med Staff - Active Staff] - Within 2 Weeks Disposition Disposition (needs filled in before D/C Order can be placed): Home, Self Care
[2022-12-04] MEDS: Amiodarone 200 MG Tablet PO (16:08)
== END 2022-12-04 18:35 | disposition home or self-care (01) | DRG 287 ==
LOC: ED 07:25 → PCU 07:58
PROVIDERS: Specialist; Admitting Provider Student in an Organized Health Care Education/Training Program; Emergency Provider Emergency Medicine; PCP Family Medicine; Visit Provider Student in an Organized Health Care Education/Training Program
DX: I42.8 Other cardiomyopathies (principal); I47.20 Ventricular tachycardia, unspecified; I13.10 Hypertensive heart and chronic kidney disease without heart failure, with stage 1 through stage 4 chronic kidney disease, or unspecified chronic kidney disease; N18.30 Chronic kidney disease, stage 3 unspecified; I48.0 Paroxysmal atrial fibrillation; E78.5 Hyperlipidemia, unspecified; I25.10 Atherosclerotic heart disease of native coronary artery without angina pectoris; N28.9 Disorder of kidney and ureter, unspecified; Z79.01 Long term (current) use of anticoagulants; Z79.82 Long term (current) use of aspirin; N40.0 Benign prostatic hyperplasia without lower urinary tract symptoms
CPT/HCPCS: 36415; 71045; 80048; 80162; 83735; 84484; 85025; 85610; 85730; 93005; 93458; 99152; 99153; 99285; J7030; J7040; 90662; A4216; C1769; C1894

== ENCOUNTER → 2022-12-04 | Outpatient (CLI) | payer MEDICARE, SELFPAY | END | disposition home or self-care (01) | LOC: CVS 14:52 | PROVIDERS: PCP Family Medicine; Visit Provider Student in an Organized Health Care Education/Training Program | DX: I25.2 Old myocardial infarction (principal) | CPT/HCPCS: 93225; 93226 ==

== ENCOUNTER → 2022-12-20 | Outpatient (CLI) | payer MEDICARE, SELFPAY ==
[2022-12-20 10:40] LABS: Anion Gap 3 (5-15); BUN 33 mg/dL (7-18); Calcium,Total 8.6 mg/dL (8.5-10.1); Chloride 103 mmol/L (98-107); Creatinine, Serum 1.94 mg/dL (0.70-1.30); EST Glomerular Filtration Rate 36 mL/min (>60); Est Glom Filt Rate - Afr Amer 44 mL/min (>60); Glucose 93 mg/dL (74-106); Potassium 3.8 mmol/L (3.5-5.1); Sodium Level 140 mmol/L (136-145)
== END | disposition home or self-care (01) ==
LOC: LAB 08:39
PROVIDERS: PCP Family Medicine; Referring Provider Internal Medicine Cardiovascular Disease; Visit Provider Internal Medicine Cardiovascular Disease
DX: Z51.81 Encounter for therapeutic drug level monitoring (principal); Z79.899 Other long term (current) drug therapy
CPT/HCPCS: 36415; 80048

== ENCOUNTER 2023-01-07 11:11 | Day surgery (SDC) | payer MEDICARE, SELFPAY ==
--- NOTE | 2022-12-17 13:55 | HP.PCM_ITS ---
History and Physical Date of Admission: 01/07/23 This is a 72-year-old white male who presents today for a cardioversion. He has a history of paroxysmal atrial fibrillation superimposed upon a history of hyperlipidemia and hypertension. His most recent Holter monitor from 08/21/2021 demonstrated atrial fibrillation/flutter 100% of the time. His minimum heart rate was 53 bpm, maximum heart rate 188 bpm, and average heart rate 107 bpm with the longest R to R interval of 1.8 seconds. He was placed on Digoxin 250mcg. At his previous office visits, this had been decreased to 125mcg due to bradycardia. He states that he has noticed shortness of breath, and abdominal swelling since August. He states that he was following with his PCP for acid reflux. He was having burning sensation in midsternal chest, along with belching. He was placed on Prilosec at that time. He is to see a GI physician in December. He does have occasional palpitation. He denies any chest pain. He did acknowledge chest heaviness when he was retaining fluid. He does acknowledge SOB with exertion- this is new. He does have occasional orthopnea. He denies PND. He does not have bleeding issues; no blood in urine, stool or nosebleeds. He does acknowledge fatigue. He denies myalgias, or claudication. He does have occasional bilateral lower extremity edema. He did have some abdominal distention when he was retaining fluid. He does have occasional lightheadedness with SOB. He denies dizziness, syncopal or near syncopal episodes, and headaches. 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 New onset atrial fibrillation Paroxysmal atrial fibrillation Premature ventricular contractions Surgical History Finger laceration (02/27/18) History of appendectomy History of arthroscopic knee surgery History of bilateral cataract extraction History of colonoscopy (05/31/14) History of foot fracture History of left heart catheterization (04/21/18) History of left knee replacement (05/09/15) History of tonsillectomy and adenoidectomy Right carpal tunnel syndrome (03/25/18) Family History Mother DiabetesFather Congestive heart failure Flores's lungSister Myocardial infarction CAD (coronary artery disease) DiabetesBrother Diabetes Social History alcohol intake: current alcohol intake frequency: a few times a week caffeine: Yes Type: coffee Number of servings: 1 and tea Number of servings: 1 ROS Const Const: Positive for fatigue; Negative for weakness, fever(s), headache(s), chills, frequent falls, weight gain or weight loss Eyes Eyes: Negative for blind spots, loss of peripheral vision, transient loss of vision, blurry vision, change in vision, double vision, floaters or tunnel vision ENT ENT: Negative for headache(s), dizziness, Nosebleed/epistaxis, balance problems or neck pain Cardio Chest Pain: Yes (Chest heaviness when retaining fluid) Palpitations: Yes (occasional) Edema: Bilateral (abdominal distention) Muscle aches with walking: None Resp Respiratory: Positive for SOB with activity and SOB orthopnea\SOB lying down (occasional); Negative for SOB at rest GI GI: Positive for heartburn and belching; Negative nausea, vomiting, bloating, vomiting blood/hematemesis, bright, red blood in stools or black,tarry stools Musc Musc: Negative for muscle aches/ myalgia, muscle weakness, joint pain or balance problems Neuro Neuro: Positive for lightheadedness (occasional with SOB); Negative for dizziness, near syncope, syncope, orthostatic symptoms, frequent falls, headache(s), weakness, blurry vision or double vision Manan Hematologic/Lymphatic: Negative for easy bleeding or easy bruising Endo Endo: Positive for fatigue Cardiology Exam Const Appearance: cooperative and no acute distress Orientation: alert and oriented x3 Head Head: normal to inspection Ears: hearing grossly normal bilaterally Nose: external nose normal Face and Sinus: face symmetric Eyes General: appearance normal, both eyes and all related structures Eyelids: eyelids normal Conjunctivae: conjunctivae normal Pupils: PERRL and pupil size EOM: EOM intact bilaterally Neck Neck: normal visual inspection Carotids: Negative bruit Chest Chest inspection: normal inspection of the chest and normal respiratory effort Auscultation: Bilateral: Clear to Auscultation Cardio Palpation: normal PMI Rate: regular rate Rhythm: irregular rhythm Heart sounds: S1 normal and S2 normal; Negative rub, gallop or murmur GI GI: normal to inspection and soft Neuro General: patient alert, patient oriented x3 and CN's II-XI intact bilaterally Skin Skin: no rashes or lesions noted Extremities Pulses: Normal: Right Posterior Tibial Pulse, Left Posterior Tibial Pulse, Right Radial Pulse and Left Radial Pulse Lower Extremity Edema: None: Bilateral Psych Psychological: normal affect Supplemental Info Supplemental Information Echocardiogram 11/20/2022: Interpretation Summary Normal LV size. Moderately severe global left ventricular systolic dysfunction. There is moderate to severe global hypokinesis of the left ventricle. The left ventricular ejection fraction is 25 %. Compared to previous study, the left ventricular systolic function has worsened.. Echocardiogram 08/21/2021: Interpretation Summary Left ventricular systolic function is normal. The estimated ejection fraction is 55 %. Moderate concentric left ventricular hypertrophy. The left atrium is mildly enlarged. Mild diffuse mitral valve thickening. Mild mitral valve prolapse, posterior leaflet Mild (1+) mitral valve insufficiency. Mild tricuspid valve insufficiency. Trivial pulmonic valve insufficiency. Right ventricular systolic pressure estimated to be 34 mmHg. Unable to assess diastolic dysfunction. Stress Test Report Date: 08-30-2020 Procedure: Exercise tolerance test/imaging study Indications: Paroxysmal atrial fibrillation; PVCs Consent: Per the patient Procedure: The patient exercised on a Remington protocol for 7 minutes and 40 seconds completing Stage II and 1 minute and 40 seconds of Stage III achieving a peak heart rate of 137 bpm (90% predicted maximal heart rate) with a peak blood pressure 158/80 mmHg and a peak MET capacity of 9 METs. The baseline ECG demonstrated sinus bradycardia; septal WA pattern of indeterminate age cannot be excluded; nonspecific T wave abnormality. The peak exercise ECG demonstrated no obvious ECG changes. There were occasional PVCs during exercise and recovery and transient ventricular bigeminy during recovery. The functional capacity was considered good. There was no complaint of chest discomfort during exercise or recovery. The examination was discontinued secondary to leg discomfort. Impression: 1. Technically adequate (percent predicted maximal heart rate greater than 85%) exercise tolerance test 2. Peak exercise ECG with no obvious ECG changes 3. There were occasional PVCs during exercise and recovery and transient ventricular bigeminy during recovery 4. Nuclear images pending Myocardial perfusion imaging study: Technique: The patient was injected with 11.3 mCi of technetium 99m Cardiolite and subsequently rest SPECT Cardiolite nuclear imaging was obtained in the horizontal long, vertical long, and short axis views. The patient exercised on a Remington protocol for 7 minutes and 40 seconds completing Stage II and 1 minute and 40 seconds of Stage III achieving a peak heart rate of 137 bpm (90% predicted maximal heart rate) with a peak blood pressure 158/80 mmHg and a peak MET capacity of 9 METs. The patient was injected with 31.2 mCi of technetium 99m Cardiolite and subsequently stress SPECT Cardiolite nuclear imaging was obtained in the horizontal long, vertical long, and short axis views. A gated Cardiolite study at peak stress was obtained. Interpretation: Rest and stress SPECT Cardiolite nuclear imaging status post realignment, normalization, and attenuation correction, demonstrates the appearance of relative uniform tracer uptake and myocardial perfusion appearing within normal limits. There is end systolic thickening and brightening. The gated Cardiolite study demonstrates myocardial thickening and inward wall motion. The reported LVEF is 48%. Impression: 1. Rest and stress SPECT Cardiolite nuclear imaging demonstrate relative uniform tracer uptake and myocardial perfusion appearing within normal limits. 2. The gated Cardiolite study reports an LVEF of 48%. Cardiac catheterization 12/04/2022: CONCLUSIONS Normal coronary arteries Cardiomyopathy: Dilated RECOMMENDATIONS Medical therapy DESCRIPTION OF PROCEDURE The patient arrived to the procedure lab. The risks and benefits of the procedure as well as a full description of our services here and current unavailability of surgical backup were fully explained to the patient and/or their significant other prior to the catheterization. The Timeout was completed, verifying the correct patient and procedure. The patient's procedural site was prepped and draped in the usual fashion. Local anesthetic was given subcutaneously to right radial region with Lidocaine 2%. Using a modified Seldinger technique, arterial access was obtained via the right radial artery, a 6Fr sheath was inserted. Left Coronary Artery selective angiography was performed in multiple views using a 5 Fr. 4.0 Fontana catheter. Right Coronary Artery selective angiography was then performed in multiple views using a 5 Fr. 4.0 Fontana catheter. Left Ventriculography was performed in KILPATRICK projection using a 5 Fr. Pigtail catheter. LV to AO pullback pressures were then recorded.The arterial sheath was pulled and a TR Band was applied for hemostasis w/ 10ml air CORONARY ANGIOGRAPHY DOMINANCE: Right Dominant LEFT HEART ASSESSMENT Left Ventricular Ejection Fraction: by LV Gram 18 % Global Hypokinesis - Severe Depressed Left Ventricular systolic function LEFT MAIN: Angiographically normal LEFT ANTERIOR DESCENDING ARTERY: No significant disease noted CIRCUMFLEX ARTERY: No significant disease noted RIGHT CORONARY ARTERY: No significant disease noted Cardiac catheterization: 04-21-2018 CONCLUSIONS Normal coronary arteries Normal LV size, wall motion,and systolic function LVEF: by LV gram 65 % Elevated Left Ventricular End Diastolic Pressure RECOMMENDATIONS Restart coumadin as pt is unable to detect when he is in and out of afib. Pt in sinus cheng as of today's procedure. Start HCTZ 12.5 mg po daily for HTN and elevated LVEDP. Pt is at low risk for non cardiac carpal tunnel surgery. DESCRIPTION OF PROCEDURE The patient arrived to the procedure lab. The risks and benefits of the procedure as well as a full description of our services here and current unavailability of surgical backup were fully explained to the patient and/or their significant other prior to the catheterization. The Timeout was completed, verifying the correct patient and procedure. The patient's procedural site was prepped and draped in the usual fashion. Local anesthetic was given xavier bcutaneously to right groin region with Lidocaine 2%. Using a modified Seldinger technique, arterial access was obtained via the right femoral artery, a 4Fr sheath was inserted Left Coronary Artery selective angiography was performed in multiple views using a 4 Fr. JL5 catheter. Right Coronary Artery selective angiography was then performed in multiple views using a 4 Fr. 3DRC catheter. Left Ventriculography was performed in KILPATRICK projection using a 4 Fr. Pigtail catheter. LV to AO pullback pressures were then recorded.The arterial sheath was pulled and manual compression applied until hemostasis is achieved. CORONARY ANGIOGRAPHY DOMINANCE: Right Dominant LEFT HEART ASSESSMENT Left Ventricular Ejection Fraction: by LV Gram 65 % Normal LV wall motion Normal Left Ventricular systolic function Normal Left Ventricular systolic function Elevated Left Ventricular End Diastolic Pressure LVEDP: 19 mmHg LEFT MAIN: Angiographically normal LEFT ANTERIOR DECENDING ARTERY: Angiographically normal CIRCUMFLEX ARTERY: Angiographically normal RIGHT CORONARY ARTERY: Angiographically normal Holter monitor: 04-28-2018 Sinus rhythm PACs Atrial run: 4 beats PVCs Wide-complex run: 9 beats Symptoms reported: None Assessment and Plan Assessment and Plan (1) Paroxysmal atrial fibrillation: Status: Chronic Plan: Patient has a history of paroxysmal atrial fibrillation. This may be more persistent. His echocardiogram from 11/20/2022 demonstrated an decreased ejection fraction of 25%, and normal atrial size. Discussed with Dr. Brown, would like to proceed with a cardioversion. Cardioversion instructions given to patient and his . He verbalizes understanding. He has not missed any doses of Xarelto. He will continue amiodarone 200mg daily, carvedilol 6.25mg twice daily, and Xarelto 20mg daily.
[2023-01-02 10:37] LABS: BNP,B-Type NATRIURETIC PEPTIDE 265.1 pg/mL (0-100)
[2023-01-02 10:42] LABS: Anion Gap 5 (5-15); BUN 31 mg/dL (7-18); BUN/Creat Ratio 15.2 RATIO (10-20); Calcium,Total 8.8 mg/dL (8.5-10.1); Chloride 100 mmol/L (98-107); Creatinine, Serum 2.04 mg/dL (0.70-1.30); EST Glomerular Filtration Rate 34 mL/min (>60); Est Glom Filt Rate - Afr Amer 42 mL/min (>60); Glucose 100 mg/dL (74-106); Potassium 3.9 mmol/L (3.5-5.1); Sodium Level 139 mmol/L (136-145)
[2023-01-06 07:15] VITALS: BMI 24.1
--- NOTE | 2023-01-07 13:18 | PRO.PCM_ITS ---
Procedure Report Date of Procedure: 01/07/23 DC cardioversion. 72-year-old man with a history of chronic persistent atrial fibrillation, d ilated nonischemic cardiomyopathy on therapeutic anticoagulation for 4 weeks. The patient was brought to the cardiac catheterization lab in the postabsorptive nonsedated state. Patient was seen by Dr. Liu of the critical care division. Informed consent was obtained. Anterior-posterior pads were applied. The patient was administered 4 mg of intravenous etomidate. 200 J of biphasic DC cardioversion energy were applied with prompt reversal to sinus rhythm. Patient tolerated the procedure well. Conclusion: Successful DC cardioversion from atrial fibrillation to sinus rhythm. Follow-up as per office protocol. Continue current medications. Obtain echocardiogram in 4 to 6 weeks prior to office appointment.
--- NOTE | 2023-01-07 13:28 | PRO.PCM_ITS ---
Procedure Report Date of Procedure: 01/07/23 CONSCIOUS SEDATION REPORT BRIEF HISTORY OF PRESENT ILLNESS: The patient is a 72-year-old male who presented to [facility] for an elective outpatient cardioversion due to underlying atrial fibrillation. The patient reports no PO intake since midnight, but is currently therapeutic on anticoagulation. The patient does not have a history of asthma, COPD or ANTONIO. The patient reports no history of smoking. Patient does report snoring, but has never been formally diagnosed with ANTONIO. The patient denies any recent constitutional symptoms such as fevers, chills, nausea or vomiting. The patient denies previous applicable anesthetic complications. Patient's last known ejec tion fraction was 25%. PHYSICAL EXAMINATION: VITAL SIGNS: Reviewed and were acceptable. GENERAL: The patient is a male, in no apparent distress, speaking in full sentences. HEENT: Normocephalic, atraumatic. Mucous membranes are moist and pink. Good mouth opening noted. Trachea is midline. Good neck mobility. MP I CHEST: S1, S2 irregularly irregular. No murmurs, rubs or gallops were noted. LUNGS: Clear to auscultation bilaterally without appreciable wheezes, rales or rhonchi. ABDOMEN: Soft, nontender, nondistended. Positive bowel sounds. EXTREMITIES: There is no clubbing, cyanosis or edema. ASA Class: II DESCRIPTION OF PROCEDURE: After confirmation of informed consent, the patient's anesthesia plan was reviewed in detail. Etomidate was chosen. Risks and benefits were reviewed and the patient agreed to proceed. At 1:09 PM, the patient was given 4 mg of etomidate. The patient achieved an appropriate level of sedation and received 1 attempt synchronized cardioversion, at [address] Brown at the bedside. This was successful in achieving normal sinus rhythm. The patient was monitored until 1:25 PM, at which time the patient reached their baseline mental status and function. The patient tolerated the procedure well. COMPLICATIONS: None ESTIMATED BLOOD LOSS: None RECOMMENDATIONS: Okay to recover in usual fashion. Procedures Pulmonary [id number]: [id number] Con Sedation
== END 2023-01-07 14:10 | disposition home or self-care (01) ==
PROVIDERS: Nurse Practitioner Gerontology; PCP Family Medicine; Referring Provider Internal Medicine Cardiovascular Disease; Visit Provider Internal Medicine Cardiovascular Disease
DX: I48.19 Other persistent atrial fibrillation (principal); I42.8 Other cardiomyopathies; I10 Essential (primary) hypertension; I25.10 Atherosclerotic heart disease of native coronary artery without angina pectoris; I25.2 Old myocardial infarction; Z79.01 Long term (current) use of anticoagulants; Z79.899 Other long term (current) drug therapy
CPT/HCPCS: 36415; 80048; 83880; 92960; 93005; J7040

== ENCOUNTER → 2023-01-24 | Outpatient (CLI) | payer MEDICARE, SELFPAY ==
[2023-01-24 10:13] LABS: Anion Gap 2 (5-15); BUN 31 mg/dL (7-18); BUN/Creat Ratio 19.6 RATIO (10-20); Calcium,Total 8.4 mg/dL (8.5-10.1); Chloride 101 mmol/L (98-107); Creatinine, Serum 1.58 mg/dL (0.70-1.30); EST Glomerular Filtration Rate 46 mL/min (>60); Est Glom Filt Rate - Afr Amer 56 mL/min (>60); Glucose 105 mg/dL (74-106); Potassium 4.4 mmol/L (3.5-5.1); Sodium Level 140 mmol/L (136-145)
== END | disposition home or self-care (01) ==
LOC: LAB 09:11
PROVIDERS: PCP Family Medicine; Referring Provider Nurse Practitioner Gerontology; Visit Provider Nurse Practitioner Gerontology
DX: I50.9 Heart failure, unspecified (principal)
CPT/HCPCS: 36415; 80048

== ENCOUNTER → 2023-02-27 | Outpatient (CLI) | payer MEDICARE, SELFPAY ==
--- NOTE | 2023-02-27 10:49 | ECHOL_ITS ---
Version 2 Reason For Study: NON-ISCHEMIC CARDIOMYOPATHY Procedure This was a limited 2D transthoracic echocardiogram. Myocardial strain analysis was performed in this exam to aid in the assessment of cardiac function. Exam performed in department. Left Ventricle Normal left ventricle. Mild concentric left ventricular hypertrophy. The estimated ejection fraction is 40 %. There is mild to moderate global hypokinesis of the left ventricle. Right Ventricle Normal RV size. Normal systolic function. Tricuspid Valve Normal tricuspid valve. Mild to moderate (1-2+) tricuspid valve insufficiency. Pulmonary artery systolic pressure is 40 mmHg. Great Vessels Normal aortic root. Pericardium/Pleural No pericardial effusion. MMode/2D Measurements & Calculations LVIDd: 4.9 cm IVSd: 1.4 cm LVIDs: 3.8 cm LVPWd: 1.1 cm LVAd ap4: 33.9 cm2 FS: 23.1 % LVLd ap4: 8.3 cm EDV(MOD-sp4): 113.8 ml EDV(sp4-el): 117.2 ml LVAs ap4: 24.7 cm2 LVLs ap4: 7.4 cm ESV(MOD-sp4): 68.9 ml ESV(sp4-el): 69.4 ml EF(MOD-sp4): 39.4 % EF(sp4-el): 40.8 % LVAd ap2: 36.3 cm2 SV(MOD-sp4): 44.8 ml SV(MOD-sp2): 53.5 ml LVLd ap2: 8.2 cm EDV(MOD-sp2): 131.2 ml EDV(sp2-el): 136.3 ml LVAs ap2: 26.0 cm2 LVLs ap2: 7.4 cm ESV(MOD-sp2): 77.7 ml ESV(sp2-el): 77.6 ml EF(MOD-sp2): 40.8 % SV(sp4-el): 47.9 ml Doppler Measurements & Calculations TR max michele: 307.5 cm/sec TR max P.8 mmHg ECHO/Echo, Limited Study Interpretation Summary Normal left ventricle. Mild concentric left ventricular hypertrophy. The estimated ejection fraction is 40 %. There is mild to moderate global hypokinesis of the left ventricle. Pulmonary artery systolic pressure is 40 mmHg. Compared to previous study, the left ventricular systolic function has improved .. The global longitudinal strain = -14.7% (abnormal). Ordering Physician: Valentina Davidson Referring Physician: LAVELLE BOONE Performed By: Karina Wilde RDCS
--- OUTSIDE RECORDS SUMMARY | 2023-02-27 11:53 | XMS RPT_ITS | CCD ---
Author Name Unknown Address [address] [place] [address] Organization [facility] Care Team Providers Care Training And Quality Manager Name Role Phone Eben Vo Unavailable [phone] Eben Vo Attending Unavailable Stencel, Eben Primary Care Unavailable Lavelle Boone Attending Unavailable Stencel, Eben Primary Care Unavailable Stencel, Eben Admitting Unavailable Stencel, Eben Attending Unavailable Stencel, Eben Primary Care Unavailable Lavelle Boone Attending Unavailable Stencel, Eben Primary Care Unavailable Lavelle Boone Attending Unavailable Stencel, Eben Primary Care Unavailable Thom Wheeler Attending Unavailable Stencel, Eben Primary Care Unavailable Hung Villalobos Attending Unavailable Stencel, Eben Primary Care Unavailable Lavelle Boone Unavailable Unavailable Stencel, Eben Mathews Unavailable Unavailable Stencel, Eben D Unavailable Unavailable Stencel, Eben Unavailable Fior Delphine Unavailable Unavailable Lavelle Boone Unavailable Eben Vo MD Primary Care Provider Eben Vo Unavailable Unavailable Unavailable MEL PAUL Admitting Unavaila ble MEL PAUL Attending Unavaila ble STENEBEN JASON Primary Care Unavailab MEL Caldwell Admitting Unavaila ble EBEN VO Primary Care Unavailab RACHAEL Salguero Attending Unavailable Eben Vo MD Primary Care Provider Lavelle Boone MD Primary Care Provider Unavailable Unavailable Eben Vo MD Primary Care Provider Gilda, Dr. Eben Luna Primary Care Unava ilable Jadiel, Dr. Lavelle Luna Referring Unav ailable Chris Cazares Attending Unavailable Chris Cazares Admitting Unavailable Lavelle Boone MD Unavailable [phone] EBEN VO Primary Care Unavailable Lavelle Boone MD Unavailable Unavailab le Eben Vo MD Primary Care Provider MEL PAUL Referring Unavaila ble PAUL, MEL HOLDEN Admitting Unavaila ble STENCEL, EBEN LUNA Primary Care Unavailab le PAUL, MEL HOLDEN Attending Unavaila ble STENCEL, EBEN LUNA Primary Care Unavailab le PAULMEL Attending Unavaila ble STENCEL, EBEN LUNA Primary Care Unavailab le STENCEL, EBEN LUNA Primary Care Unavailab le PAULMEL Attending Unavaila ble STENCEL, EBEN LUNA Primary Care Unavailab le PAULMEL Attending Unavaila ble STENCEL, EBEN LUNA Primary Care Unavailab le PAULMEL Attending Unavaila ble STENCEL, EBEN LUNA Primary Care Unavailab le PAULMEL Attending Unavaila ble STENCEL, EBEN LUNA Primary Care Unavailab le PAULMEL Attending Unavaila ble PAULMEL Referring Unavaila ble PAUL, MEL HOLDEN Admitting Unavaila ble STENCEL, EBEN LUNA Primary Care Unavailab le PAULMEL CONNOR Attending Unavaila ble STENCEL, EBEN LUNA Primary Care Unavailab Lavelle Yang MD Unavailable [phone] Moustapha BANUELOS, Lucille Unavailable Unavailable LAVELLE BOONE Attending Unavailable LISETTECELEBEN Primary Care Unavailable STENCEL, EBEN Mathews Attending Unavailable STENCEL, EBEN Mathews Primary Care Unavailable STENCELEBEN Attending Unavailable STENCELEBEN Referring Unavailable STENCELEBEN Primary Care Unavailable CHRIS CAZARES Attending Unavailable LISETTECELEBEN Primary Care Unavailable LAVELLE BOONE Primary Care Unavaila ble RIVERARAUL Referring Unavailable RIVERARAUL KNUTSON Attending Unavailable STENCELEBEN Referring Unavailable STENCEL, BEEN Mathews Primary Care Unavailable CHRIS CAZARES Referring Unavailable STENCELEBEN Primary Care Unavailable Allergies Allergy Classification Reported Allergen(s) Allergy Type Date of Onset Reaction(s) Facility Sulfonamides (antibiotic) (1 source) Sulfonamides (Antibiotic) Drug Allergy Other [facility] Medications Current Medications Medication Drug Class(es) Dates Sig (Normalized) Sig (Original) amiodarone hydrochloride 200 mg oral tablet (6 sources) Antiarrhythmic Start: 12-04-2022 amiodarone (Pacerone) 200 mg tablet 2 times a day. 0 12/04/2022 Active Ascorbic Acid (15 sources) Vitamin C ascorbic acid (VITAMIN C ORAL) Take by mouth Morning . 0 Active carvedilol 3.125 mg oral tablet (6 sources) alpha-Adrenergic Ranjan, beta-Adrenergic Ranjan Start: 11-27-2022 carvedilol (Coreg) 3.125 mg tablet 2 times a day with meals. 0 11/27/2022 Active celecoxib 200 mg oral capsule (10 sources) Nonsteroidal Anti-inflammatory Drug Start: 12-11-2020 take 1 capsule by mouth once daily celecoxib (CELEBREX) 200 MG capsule Take 1 (one) capsule (200 mg total) by mouth daily . 90 capsule 0 12/11/2020 Active Completed/Discontinued Medications Medication Drug Class(es) Dates Sig (Normalized) Sig (Original) acetaminophen 325 mg / HYDROcodone bitartrate 5 mg oral tablet (1 source) Opioid Agonist Start: 07-20-2020 End: 07-21-2020 take 1 tablet by mouth every six hours hydrocodone-acetami nophen 5 mg-325 mg oral tablet ; 1 tab(s) orally every 6 hours Quantity: 8 Refills: 0 Ordered: 20-Jul-2020 Delphine Childress Start: 20-Jul-2020 End: 21-Jul-2020 Generic Substitution Allowed Comments: Caution federal law prohibits the transfer of this drug to any person other than the person for whom it was prescribed.May cause drowsiness. Alcohol may intensify this effect. Use care when operating dangerous machinery.This product contains acetaminophen. Do not use with any other product containing acetaminophen to prevent possible liver damage.Using more of this medication than prescribed may cause serious breathing problems. Problems Active Problems Problem Classification Problem Date Documented Da te Episodic/Chronic Cardiac dysrhythmias (20 sources) Atrial fibrillation; Translations: [Atrial fibrillation] Onset: 01-21-2020 03-28-2021 Chronic Cataract (3 sources) After-cataract with vision obscured following extraction of cataract; Translations: [Other secondary cataract, left eye] Onset: 01-22-2021 01-22-2021 Chronic Disorders of lipid metabolism (13 sources) Mixed hyperlipidemia; Translations: [Mixed hyperlipidemia] Onset: 10-15-2022 10-15-2022 Chronic Hyperplasia of prostate (20 sources) Benign prostatic hypertrophy without outflow obstruction; Translations: [Hypertrophy (benign) of prostate without urinary obstruction and other lower urinary tract symptom (LUTS)] Onset: 10-15-2022 10-15-2022 Chronic Open wounds of extremities (3 sources) Laceration of right thumb; Translations: [Open wound of finger(s), without mention of complication] 07-19-2020 Episodic Open wounds of extremities (1 source) Laceration of left index finger; Translations: [Open wound of finger(s), without mention of complication] 01-18-2021 Episodic Osteoarthritis (20 sources) Arthritis; Translations: [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] Onset: 10-15-2022 Chronic Other bone disease and musculoskeletal deformities (2 sources) Exostosis of left foot; Translations: [Other specified disorders of bone, ankle and foot] Episodic Other bone disease and musculoskeletal deformities (2 sources) Exostosis; Translations: [Other specified disorders of bone, unspecified site] 08-01-2022 Episodic Other bone disease and musculoskeletal deformities (2 sources) Other specified disorders of bone, unspecified site; Translations: [Other specified disorders of bone, unspecified site] Onset: 10-31-2022 Episodic Other congenital anomalies (1 source) Talipes planus; 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 Other connective tissue disease (1 source) Plantar fasciitis of right foot; Translations: [Plantar fascial fibromatosis] Episodic Other connective tissue disease (1 source) Tendinitis of right posterior tibial tendon; Translations: [Posterior tibial tendinitis, right leg] Episodic Other gastrointestinal disorders (10 sources) Abdominal bloating; Translations: [Abdominal distension (gaseous)] Onset: 01-16-2023 01-16-2023 Episodic Other gastrointestinal disorders (4 sources) Abdominal distension (gaseous); Translations: [Abdominal distension (gaseous)] Onset: 01-16-2023 Episodic Other lower respiratory disease (13 sources) Cough; Translations: [Cough] Episodic Other nervous system disorders (20 sources) Bilateral carpal tunnel syndrome; Translations: [Carpal tunnel syndrome, bilateral upper limbs] Onset: 08-13-2017 08-13-2017 Chronic Other nervous system disorders (1 source) Numbness of hand Episodic Other skin disorders (5 sources) Foot callus; Translations: [Corns and callosities] Episodic Other skin disorders (1 source) [place] - lesion ; Translations: [Corns and callosities] 10-31-2022 Episodic Other upper respiratory disease (8 sources) Allergic rhinitis; Translations: [Allergic rhinitis, cause unspecified] Chronic Daija-; endo-; and myocarditis; cardiomyopathy (except that caused by tuberculosis or sexually transmitted disease) (9 sources) Cardiomyopathy; Translations: [Other cardiomyopathies] Onset: 12-13-2022 12-13-2022 Chronic Residual codes; unclassified (13 sources) Insomnia; Translations: [Insomnia, unspecified] Episodic Residual codes; unclassified (1 source) General well-being finding; Translations: [Personal history of other specified conditions] Episodic Residual codes; unclassified (1 source) Left before being seen; Translations: [Procedure and treatment not carried out due to patient leaving prior to being seen by health care provider] Episodic Superficial injury; contusion (1 source) Foreign body in thumb; Translations: [Superficial foreign body (splinter) of finger(s), without major open wound and without mention of infection] 07-19-2020 Episodic Unclassified (2 sources) Carpal tunnel syndrome, bilateral; Translations: [Carpal tunnel syndrome, bilateral upper limbs] Onset: 08-13-2017 08-13-2017 Unclassified (2 sources) RIGHT THUMB LAC 07-19-2020 Past or Other Problems Problem Classification Problem Date Documented Da te Episodic/Chronic Abdominal pain (5 sources) Indigestion; Translations: [Epigastric pain] Onset: 10-15-2022 10-15-2022 Episodic Acquired foot deformities (3 sources) Acquired varus heel; Translations: [Varus deformity, not elsewhere classified, left ankle] Onset: 08-01-2022 08-01-2022 Episodic Blindness and vision defects (3 sources) Regular astigmatism of right eye; Translations: [Regular astigmatism, right eye] Onset: 01-10-2020 01-10-2020 Episodic Blindness and vision defects (1 source) Regular astigmatism of left eye; Translations: [Regular astigmatism, left eye] Onset: 01-10-2020 01-10-2020 Episodic Mycoses (12 sources) Onychomycosis of toenails; Translations: [Tinea unguium] Onset: 01-31-2022 Episodic Nonspecific chest pain (5 sources) Chest wall pain; Translations: [Other chest pain] Onset: 10-15-2022 10-15-2022 Episodic Other bone disease and musculoskeletal deformities (20 sources) Exostosis of right foot; Translations: [Other specified disorders of bone, ankle and foot] Onset: 02-22-2021 Episodic Other bone disease and musculoskeletal deformities (2 sources) Other specified disorders of bone, ankle and foot; Translations: [Other specified disorders of bone, ankle and foot] Onset: 05-09-2022 Episodic Other circulatory disease (1 source) H/O: atrial fibrillation; Translations: [Personal history of other diseases of the circulatory system] Onset: 01-10-2020 01-10-2020 Episodic Other connective tissue disease (20 sources) Pain of toe of right foot; Translations: [Pain in right toe(s)] Onset: 02-22-2021 Episodic Other connective tissue disease (4 sources) Pain in left foot; Translations: [Pain in left foot] Onset: 05-09-2022 Episodic Other connective tissue disease (4 sources) Pain in right foot; Translations: [Pain in right foot] Onset: 01-31-2022 Episodic Other connective tissue disease (1 source) Pain in left foot; Translations: [Pain in left foot] Onset: 05-09-2022 Episodic Other connective tissue disease (1 source) Pain in right toe(s); Translations: [Pain in right toe(s)] Onset: 01-31-2022 Episodic Other connective tissue disease (1 source) Pain in right foot; Translations: [Pain in right foot] Onset: 01-31-2022 Episodic Other eye disorders (1 source) Hypertropia of right eye; Translations: [Vertical strabismus, right eye] Onset: 01-10-2020 01-10-2020 Episodic Other eye disorders (1 source) Meibomian gland dysfunction of bilateral eyes; Translations: [Meibomian gland dysfunction right eye, upper and lower eyelids] Onset: 02-28-2020 02-28-2020 Episodic Other screening for suspected conditions (not mental disorders or infectious disease) (20 sources) Raised prostate specific antigen; Translations: [Elevated prostate specific antigen [PSA]] Onset: 09-25-2021 Episodic Other skin disorders (2 sources) Corns and callosities; Translations: [Corns and callosities] Onset: 05-09-2022 Episodic Unclassified (20 sources) Patient encounter status; Translations: [Medicare annual wellness visit, subsequent] Unclassified (8 sources) Onset: 10-15-2022 10-15-2022 Viral infection (10 sources) Verruca plantaris; Translations: [Plantar wart] Onset: 01-31-2022 Episodic NEGATED: Highlighted row has not occurred!Residual codes; unclassified (6 sources) Disease Episodic Results Test Name Value Interpretation Reference Range Facil ity Vital Signs Date Time Vital Sign Value Performing Clinician Faci lity 01-16-2023 14:42-0500 Body height 172.7 cm Chris Cazares DO Work Phone: [facility] 01-16-2023 14:42-0500 Body mass index (BMI) [Ratio] 25.03 kg/m2 Chirs Thomae DO Work Phone: [facility] 01-16-2023 14:42-0500 Body weight 74.66 kg Chris Thomae DO Work Phone: [facility] 01-16-2023 14:42-0500 Diastolic blood pressure 60 mm[Hg] Chris Thomae DO Work Phone: [facility] 01-16-2023 14:42-0500 Systolic blood pressure 100 mm[Hg] Chris Thomae DO Work Phone: [facility] 12-13-2022 09:09-0400 Body height 172.7 cm Eben Vo MD Work Phone: [facility] 12-13-2022 09:09-0400 Body mass index (BMI) [Ratio] 25.7 kg/m2 Eben Vo MD Work Phone: [facility] 12-13-2022 09:09-0400 Body weight 76.66 kg Eben Vo MD Work Phone: [facility] 12-13-2022 09:09-0400 Diastolic blood pressure 62 mm[Hg] Eben Vo MD Work Phone: [facility] 12-13-2022 09:09-0400 Heart rate 96 /min Eben Vo MD Work Phone: [facility] 12-13-2022 09:09-0400 SaO2% (BldA) [Mass fraction] 94 % Eben Vo MD Work Phone: [facility] 12-13-2022 09:09-0400 Systolic blood pressure 106 mm[Hg] Eben Vo MD Work Phone: [facility] 11-01-2022 08:04-0400 Body height 172.7 cm Eben Vo MD Work Phone: [phone] [place] [address] 11-01-2022 08:04-0400 Body mass index (BMI) [Ratio] 24.77 kg/m2 Eben Vo MD Work Phone: [facility] 11-01-2022 08:04-0400 Body weight 73.89 kg Eben Vo MD Work Phone: [facility] 11-01-2022 08:04-0400 Diastolic blood pressure 72 mm[Hg] Eben Vo MD Work Phone: [facility] 11-01-2022 08:04-0400 Heart rate 58 /min Eben Vo MD Work Phone: [facility] 11-01-2022 08:04-0400 SaO2% (BldA) [Mass fraction] 95 % Eben Vo MD Work Phone: [facility] 11-01-2022 08:04-0400 Systolic blood pressure 120 mm[Hg] Eben Vo MD Work Phone: [facility] 10-31-2022 10:11-0400 Body temperature 98.29 [degF] Mel Paul DPM Work Phone: [facility] 10-31-2022 10:11-0400 Diastolic blood pressure 66 mm[Hg] Mel Paul DPM Work Phone: [facility] 10-31-2022 10:11-0400 Heart rate 77 /min Mel Paul DPM Work Phone: [facility] 10-31-2022 10:11-0400 Systolic blood pressure 118 mm[Hg] Mel Paul DPM Work Phone: [facility] 10-17-2022 08:01-0400 Body temperature 97.5 [degF] Melheidi ColemanPaul DPM Work Phone: [facility] 10-17-2022 08:01-0400 Diastolic blood pressure 77 mm[Hg] Mel Paul DPM Work Phone: [facility] 10-17-2022 08:01-0400 Heart rate 77 /min Mel Paul DPM Work Phone: [facility] 10-17-2022 08:01-0400 Systolic blood pressure 116 mm[Hg] Mel Paul DPM Work Phone: [facility] 10-15-2022 11:27-0400 Body height 172.7 cm Lavelle Boone MD Work Phone: [facility] 10-15-2022 11:27-0400 Body mass index (BMI) [Ratio] 24.57 kg/m2 Lavelle Boone MD Work Phone: [facility] 10-15-2022 11:27-0400 Body weight 73.3 kg Lavelle Boone MD Work Phone: [facility] 10-15-2022 11:27-0400 Diastolic blood pressure 64 mm[Hg] Lavelle Boone MD Work Phone: [facility] 10-15-2022 11:27-0400 Heart rate 82 /min Lavelle Boone MD Work Phone: [facility] 10-15-2022 11:27-0400 SaO2% (BldA) [Mass fraction] 95 % Lavelle Boone MD Work Phone: [facility] 10-15-2022 11:27-0400 Systolic blood pressure 108 mm[Hg] Lavelle Boone MD Work Phone: [facility] 08-01-2022 08:08-0400 Body temperature 98.4 [degF] Mel Paul DPM Work Phone: [facility] 08-01-2022 08:08-0400 Diastolic blood pressure 68 mm[Hg] Mel Paul DPM Work Phone: [facility] 08-01-2022 08:08-0400 Heart rate 55 /min Mel Paul DPM Work Phone: [facility] 08-01-2022 08:08-0400 Systolic blood pressure 112 mm[Hg] Mel Paul DPM Work Phone: [facility] 05-09-2022 11:00-0400 Body temperature 98.6 [degF] Mel Paul DPM Work Phone: [facility] 05-09-2022 11:00-0400 Diastolic blood pressure 62 mm[Hg] Mel Paul DPM Work Phone: [facility] 05-09-2022 11:00-0400 Heart rate 52 /min Mel Paul DPM Work Phone: [facility] 05-09-2022 11:00-0400 Systolic blood pressure 114 mm[Hg] Mel Paul DPM Work Phone: [facility] 03-08-2022 08:58-0500 Body height 172.72 cm Eben Vo Work Phone: [facility] Work Phone: 03-08-2022 08:58-0500 Body mass index (BMI) [Ratio] 24.34 kg/m2 Eben Vo Work Phone: [facility] Work Phone: 03-08-2022 08:58-0500 Body surface area Derived from formula 1.86 m2 Eben Vo Work Phone: [facility] Work Phone: 03-08-2022 08:58-0500 Body weight 72.6 kg Eben Vo Work Phone: [facility] Work Phone: 03-08-2022 08:58-0500 Diastolic blood pressure 80 mm[Hg] Eben Vo Work Phone: [facility] Work Phone: 03-08-2022 08:58-0500 Heart rate 56 /min Eben Vo Work Phone: [facility] Work Phone: 03-08-2022 08:58-0500 SaO2% (BldA) [Mass fraction] 97 % Eben Vo Work Phone: [facility] Work Phone: 03-08-2022 08:58-0500 Systolic blood pressure 140 mm[Hg] Eben Vo Work Phone: [facility] Work Phone: 01-31-2022 08:29-0500 Body temperature 98.8 [degF] Mel Paul DPM Work Phone: [facility] 01-31-2022 08:29-0500 Diastolic blood pressure 75 mm[Hg] Mel Paul DPM Work Phone: [facility] 01-31-2022 08:29-0500 Heart rate 61 /min Mel Paul DPM Work Phone: [facility] 01-31-2022 08:29-0500 Systolic blood pressure 133 mm[Hg] Mel Paul DPM Work Phone: [facility] 01-03-2022 08:33-0500 Body temperature 98.49 [degF] Mel Paul DPM Work Phone: [facility] 01-03-2022 08:33-0500 Diastolic blood pressure 67 mm[Hg] Mel Paul DPM Work Phone: [facility] 01-03-2022 08:33-0500 Heart rate 48 /min Mel Paul DPM Work Phone: [facility] 01-03-2022 08:33-0500 Systolic blood pressure 121 mm[Hg] Mel Paul DPM Work Phone: [facility] 08-02-2021 08:46-0400 Body temperature 98.01 [degF] Mel Paul DPM Work Phone: [facility] 08-02-2021 08:46-0400 Diastolic blood pressure 64 mm[Hg] Mel Paul DPM Work Phone: [facility] 08-02-2021 08:46-0400 Heart rate 57 /min Mel Paul DPM Work Phone: [facility] 08-02-2021 08:46-0400 Systolic blood pressure 107 mm[Hg] Mel Paul DPM Work Phone: [facility] 07-12-2021 08:15-0400 Body temperature 97.9 [degF] Mel Paul DPM Work Phone: [facility] 07-12-2021 08:15-0400 Diastolic blood pressure 60 mm[Hg] Mel Paul DPM Work Phone: [facility] 07-12-2021 08:15-0400 Heart rate 44 /min Mel Paul DPM Work Phone: [facility] 07-12-2021 08:15-0400 Systolic blood pressure 108 mm[Hg] Mel Paul DPM Work Phone: [facility] 06-21-2021 08:18-0400 Body temperature 98.01 [degF] Mel Raphaelman DPM Work Phone: [facility] 06-21-2021 08:18-0400 Diastolic blood pressure 70 mm[Hg] Mel Colemanmerman DPM Work Phone: [facility] 06-21-2021 08:18-0400 Heart rate 77 /min Mel Raphaelman DPM Work Phone: [facility] 06-21-2021 08:18-0400 Systolic blood pressure 113 mm[Hg] Mel Raphaelman DPM Work Phone: [facility] 2021 08:45-0400 Body temperature 97.7 [degF] Mel Raphaelman DPM Work Phone: [facility] 2021 08:45-0400 Diastolic blood pressure 80 mm[Hg] Mel Raphaelman DPM Work Phone: [facility] 2021 08:45-0400 Heart rate 67 /min Mel Raphaelman DPM Work Phone: [facility] 2021 08:45-0400 Systolic blood pressure 128 mm[Hg] Mel Raphaelman DPM Work Phone: [facility] 05-10-2021 08:36-0400 Diastolic blood pressure 74 mm[Hg] Mel Raphaelman DPM Work Phone: [facility] 05-10-2021 08:36-0400 Heart rate 50 /min Mel Raphaelman DPM Work Phone: [facility] 05-10-2021 08:36-0400 Systolic blood pressure 123 mm[Hg] Mel Raphaelman DPM Work Phone: [facility] 05-10-2021 08:31-0400 Body temperature 98.1 [degF] Mel Paul DPM Work Phone: [facility] 04-19-2021 14:28-0500 Body temperature 98.2 [degF] Mel Colemanmerman DPM Work Phone: [facility] 04-19-2021 14:28-0500 Diastolic blood pressure 68 mm[Hg] Mel Colemanmerman DPM Work Phone: [facility] 04-19-2021 14:28-0500 Heart rate 69 /min Mel Colemanmerman DPM Work Phone: [facility] 04-19-2021 14:28-0500 Systolic blood pressure 132 mm[Hg] Mel Colemanmerman DPM Work Phone: [facility] 04-05-2021 08:29-0500 Body temperature 97.9 [degF] Mel Colemanmerman DPM Work Phone: [facility] 04-05-2021 08:29-0500 Diastolic blood pressure 69 mm[Hg] Mel Colemanmerman DPM Work Phone: [facility] 04-05-2021 08:29-0500 Heart rate 58 /min Mel Paul DPM Work Phone: [facility] 04-05-2021 08:29-0500 Systolic blood pressure 117 mm[Hg] Mel Raphaelman DPM Work Phone: [facility] 03-08-2021 08:26-0500 Body height 172.72 cm Eben Robertscel Work Phone: [facility] Work Phone: 03-08-2021 08:26-0500 Body mass index (BMI) [Ratio] 25.26 kg/m2 Eben Robertscel Work Phone: [facility] Work Phone: 03-08-2021 08:26-0500 Body surface area Derived from formula 1.89 m2 Eben Robertscel Work Phone: [facility] Work Phone: 03-08-2021 08:26-0500 Body temperature 97.8 [degF] Eben Robertscel Work Phone: [facility] Work Phone: 03-08-2021 08:26-0500 Body weight 75.36 kg Eben Robertscel Work Phone: [facility] Work Phone: 03-08-2021 08:26-0500 Diastolic blood pressure 64 mm[Hg] Eben Robertscel Work Phone: [facility] Work Phone: 03-08-2021 08:26-0500 Heart rate 60 /min Eben Vo Work Phone: [facility] Work Phone: 03-08-2021 08:26-0500 SaO2% (BldA) [Mass fraction] 98 % Eben Vo Work Phone: [facility] Work Phone: 03-08-2021 08:26-0500 Systolic blood pressure 112 mm[Hg] Eben Vo Work Phone: [facility] Work Phone: 02-22-2021 07:59-0500 Body temperature 98.01 [degF] Mel Paul DPM Work Phone: [facility] 02-22-2021 07:59-0500 Diastolic blood pressure 70 mm[Hg] Mel Paul DPM Work Phone: [facility] 02-22-2021 07:59-0500 Heart rate 67 /min Mel Paul DPM Work Phone: [facility] 02-22-2021 07:59-0500 Systolic blood pressure 134 mm[Hg] Mel Paul DPM Work Phone: [facility] 01-18-2021 18:06-0500 Body height 172.7 cm Eben Stencel Other Phone: [facility] 01-18-2021 18:06-0500 Body temperature 98.24 [degF] Eben Robertscel Other Phone: [facility] 01-18-2021 18:06-0500 Body weight 69.1 kg Eben Robertscel Other Phone: [facility] 01-18-2021 18:06-0500 Diastolic blood pressure 76 mm[Hg] Eben Robertscel Other Phone: [facility] 01-18-2021 18:06-0500 Heart rate 67 /min Eben Robertscel Other Phone: [facility] 01-18-2021 18:06-0500 Respiratory rate 18 /min Eben Robertscel Other Phone: [facility] 01-18-2021 18:06-0500 SaO2% (BldA) [Mass fraction] 95 % Eben Robertscel Other Phone: [facility] 01-18-2021 18:06-0500 Systolic blood pressure 152 mm[Hg] Eben Robertscel Other Phone: [facility] 12-21-2020 08:16-0400 Body temperature 98.1 [degF] Mel Paul DPM Work Phone: [facility] 12-21-2020 08:16-0400 Diastolic blood pressure 68 mm[Hg] Mel Paul DPM Work Phone: [facility] 12-21-2020 08:16-0400 Heart rate 60 /min Mel Paul DPM Work Phone: [facility] 12-21-2020 08:16-0400 Systolic blood pressure 120 mm[Hg] Mel Paul DPM Work Phone: [facility] 11-23-2020 09:04-0400 Body temperature 98.4 [degF] Mel Paul DPM Work Phone: [facility] 11-23-2020 09:04-0400 Diastolic blood pressure 56 mm[Hg] Mel Paul DPM Work Phone: [facility] 11-23-2020 09:04-0400 Heart rate 65 /min Mel Paul DPM Work Phone: [facility] 11-23-2020 09:04-0400 Systolic blood pressure 118 mm[Hg] Mel Beverly DPM Work Phone: [facility] 07-19-2020 23:35-0400 Diastolic blood pressure 70 mm[Hg] Eben Stencel Other Phone: [facility] 07-19-2020 23:35-0400 Heart rate 62 /min Eben Stencel Other Phone: [facility] 07-19-2020 23:35-0400 Respiratory rate 16 /min Eben Stencel Other Phone: [facility] 07-19-2020 23:35-0400 SaO2% (BldA) [Mass fraction] 97 % Eben Stencel Other Phone: [facility] 07-19-2020 23:35-0400 Systolic blood pressure 106 mm[Hg] Eben Stencel Other Phone: [facility] 07-19-2020 18:48-0400 Body height 175.2 cm Eben Stencel Other Phone: [facility] 07-19-2020 18:48-0400 Body temperature 97.88 [degF] Eben Stencel Other Phone: [facility] 07-19-2020 18:48-0400 Body weight 69.1 kg Eben Stencel Other Phone: [facility] 02-18-2019 17:04-0500 BMI (Body Mass Index) 26.03 kg/m2 Lavelle Boone [facility] Work Phone: 02-18-2019 17:04-0500 Body Temperature 97.3 [degF] Andriymary ellen Jadiel -[facility] Work Phone: 02-18-2019 17:04-0500 Body weight 75.39 kg Lavelle Jadiel -[facility] Work Phone: 02-18-2019 17:04-0500 BP Diastolic 62 mm[Hg] Lavelle Boone -[facility] Work Phone: 02-18-2019 17:04-0500 BP Systolic 106 mm[Hg] Lavelle Boone -[facility] Work Phone: 02-18-2019 17:04-0500 BSA (Body Surface Area) 1.87 m2 Lavelle Boone -[facility] Work Phone: 02-18-2019 17:04-0500 Height 170.18 cm Lavelle Boone [facility] Work Phone: 02-18-2019 17:04-0500 Pulse (Heart Rate) 46 /min Lavelle Boone -[facility] Work Phone: 02-18-2019 17:04-0500 Pulse Oximetry 97 % Lavelle Boone -[facility] Work Phone: 01-08-2019 10:09-0500 BMI (Body Mass Index) 25.8 kg/m2 Lavelle Boone -[facility] Work Phone: 01-08-2019 10:09-0500 Body weight 76.98 kg Lavelle Boone -[facility] Work Phone: 01-08-2019 10:09-0500 BP Diastolic 60 mm[Hg] Lavelle Boone -[facility] Work Phone: 01-08-2019 10:09-0500 BP Systolic 106 mm[Hg] Lavelle Boone -[facility] Work Phone: 01-08-2019 10:09-0500 BSA (Body Surface Area) 1.91 m2 Lavelle Boone -[facility] Work Phone: 01-08-2019 10:090500 Height 172.72 cm Lavelle Boone -[facility] Work Phone: 01-08-2019 10:09-0500 Pulse (Heart Rate) 48 /min Lavelle Boone -[facility] Work Phone: Encounters Encounter Date Encounter Type Care Provider Facility Start: 02-12-2023 End: 02-13-2023 [facility] Start: 02-12-2023 End: 02-12-2023 Subsequent hospital visit by physician Homer Patterson 1 [facility] Procedures Date Procedure Procedure Detail Performing Clinician Start: 02-12-2023 NM HEPATOBILIARY W CHOLECYSTOKININ EBEN VO Start: 02-12-2023 Hepatobil syst imag inc gb w/pharma intervenj Chris Cazares DO Work Phone: Start: 01-17-2023 US ABDOMEN COMPLETE DANISHA HAZENY VO Start: 01-17-2023 Us abdominal real ti me w/image documentation Chris Cazares DO Work Phone: Start: 12-13-2022 FOLLOW UP IN FAMILY MEDICINE LAVELLE BOONE Start: 11-27-2022 Thyrotropin [Units/v olume] in Serum or Plasma Eben Vo MD Work Phone: Start: 10-17-2022 NURSING COMMUNICATIO N- RITUXAN REACTION Mel Paul DPM Work Phone: Start: 10-15-2022 CBC panel - Blood by Automated count EBEN VO Start: 10-15-2022 Comprehensive metabo lic 2000 panel - Serum or Plasma EBEN VO Start: 10-15-2022 SEDIMENTATION RATE, AUTOMATED EBEN VO Start: 02-21-2022 Lipid 1996 panel - S ayesha or Plasma Lavelle Boone MD Work Phone: Start: 09-27-2021 Colonoscopy Mel méndez DPM Work Phone: Start: 09-27-2021 Colonoscopy Eben Vo Work Phone: Plan of Treatment Date Care Activity Detail Author Start: 09-28-2031 Screening for malignant neoplasm of colon [facility] Start: 09-26-2031 Screening for malignant neoplasm of colon [facility] Start: 04-29-2027 DTaP/Tdap/Td Vaccines (2 - Td or Tdap) DTaP/Tdap/Td Vaccines (2 - Td or Tdap) [facility] Start: 04-29-2027 Tetanus vaccination Tetanus: Every 10yrs [facility] Start: 02-21-2027 Lipid panel Lipid Panel [facility] Start: 01-25-2024 Creatinine measurement Creatinine Level [facility] Start: 01-25-2024 Potassium measurement Potassium Level [facility] Start: 11-28-2023 Thyroid stimulating hormone measurement TSH Level [facility] Start: 11-21-2023 Echocardiography Echocardiogram [facility] Start: 03-20-2023 End: 03-20-2023 Patient encounter procedure 03/20/2023 9:45 AM EST Office Visit [facility] [address] [id number] Chris Cazares, [address] [facility] [place] [address] [place] [address] [facility] Start: 03-18-2023 End: 03-18-2023 Patient encounter procedure 03/18/2023 9:00 AM EST Office Visit [facility] [address] [place] [address] Eben Vo MD [address] [place] [address] [facility] Start: 03-11-2023 End: 03-11-[address] [facility] Start: 03-09-2023 Medicare Annual Wellness Visit Medicare Annual Wellness Visit (AWV) [facility] Start: 01-17-2023 End: 01-17-2023 Patient encounter procedure 01/17/2023 1:00 PM EST Appointment [facility] [address] [place] [address] [facility] Start: 01-16-2023 End: 01-16-2023 Patient encounter procedure 01/16/2023 2:30 PM EST Office Visit [facility] [address] [place] [address] [place] [phone] Chris Cazares, DO [address] [facility] [place] [address] [place] [id number] [facility] Start: 01-16-2023 End: 01-17-2024 US Abdomen US abdomen complete Imaging Routine Abdominal bloating Expected: 01/16/2023, Expires: 01/17/2024 [facility] Service Area Work Phone: Immunizations Immunization Date Immunization Notes Care Provider Fa cili 11-23-2021 Fluad Quadrivalent 0 .5 ML Intramuscular Prefilled Syringe Eben Vo Work Phone: [facility] Work Phone: Payers Date Payer Category Payer Medicare AETNA MEDICARE A ETNA MEDICARE PPO [id number] 2021-Present [phone] [address] [place] [address] [facility] [id number] 2017 Private Health Insurance 2017 Medicare AETNA MANAGED [place] DICARE AETNA MEDICARE PLAN (PPO) [id number] 2017-Present [phone] [address] [place] [address] [id number] 2017 Medicare [id number] 2017 Medicare [id number] 2016 Unknown 1950 Unknown [id number] 2.16.840.1.296430.3.579.2.7 17 1950 Unknown [id number] 2.16.840.1.342432.3.579.2.7 17 1950 Unknown [id number] 2.16.840.1.277648.3.579.2.9 03 1950 Unknown [id number] 2.16.840.1.948913.3.579.2.9 03 1950 Unknown [id number] 2.16.840.1.695374.3.579.2.1 069 1950 Unknown [id number] 2.16.840.1.906888.3.579.2.1 245 1950 Unknown [id number] 2.16.840.1.788854.3.579.2.9 03 1950 Unknown [id number] 2.16.840.1.041935.3.579.2.9 03 1950 Unknown [id number] 2.16.840.1.878845.3.579.2.9 03 1950 Unknown [id number] 2.16.840.1.274455.3.579.2.9 03 1950 Unknown [id number] 2.16.840.1.598492.3.579.2.9 03 1950 Unknown [id number] 2.16.840.1.587087.3.579.2.9 03 1950 Unknown [id number] 2.16.840.1.958011.3.579.2.9 03 1950 Unknown [id number] 2.16.840.1.506042.3.579.2.9 03 1950 Unknown [id number] 2.16.840.1.524509.3.579.2.9 03 1950 Unknown [id number] 2.16.840.1.349505.3.579.2.9 03 1950 Unknown [id number] 2.16.840.1.842189.3.579.2.1 244 1950 Unknown [id number] 2.16.840.1.229667.3.579.2.1 244 1950 Unknown [id number] 2.16.840.1.004254.3.579.2.1 244 1951 Unknown [id number] 2.16.840.1.444877.3.579.2.1 244 1950 Unknown [id number] 2.16.840.1.632316.3.579.2.1 243 1950 Unknown [id number] 2.16.840.1.850313.3.579.2.1 243 Social History Date Type Detail Facility Start: 08-13-2017 Tobacco smoking status TXIS Unknown if ever smoked [facility] Start: 1950 Sex Assigned At Not on file [facility] Start: 11-20-2020 End: 12-13-2022 Tobacco smoking status TXIS Never smoked tobacco [facility] Start: 11-20-2020 Tobacco use and exposure Smokeless tobacco non-user [facility] Start: 11-20-2020 End: 12-13-2022 Alcohol intake Current drinker of alcohol (finding) [facility] Start: 11-20-2020 History SDOH Alcohol Comment occasionally [facility] Start: 04-01-2021 End: 02-12-2023 Exposure to SARS-CoV-2 (event) Not sure [facility] Start: 04-05-2021 End: 12-13-2022 Consumes alcohol Consumes alcohol [facility] Work Phone: Start: 11-20-2020 End: 10-15-2022 Tobacco use and exposure User of smokeless tobacco [facility] Start: 03-28-2021 End: 07-12-2021 Tobacco Comment does use chew tobacco ( 1 pouch every 2 to 3 weeks ) [facility] Start: 01-22-2021 Alcohol intake Ex-drinker (finding) [facility] Start: 08-01-2022 End: 12-13-2022 Tobacco use panel [facility] History of tobacco use Passive smoker [facility] Work Phone: History of tobacco use Chews Tobacco [facility] Work Phone: Start: 12-13-2022 Tobacco use and exposure Former smokeless tobacco user [facility] Work Phone: Start: 12-13-2022 Alcohol Comment occasional [facility] Work Phone: NEGATED: Highlighted row - - [facility] Work Phone: Medical Equipment Procedure Code Equipment Code Equipment Origin al Text Equipment Identifier Dates Lens, Intraocula r [id number] 12.0 Case [id number] Start: 01-20-2020 Functional Status Date Assessment Result Facility NEGATED: Highlighted row Functional performance Functional status health issues are not documented Disease [facility] Work Phone: Mental Status Date Assessment Result Facility NEGATED: Highlighted row Cognitive function [Interpretation] Cognitive status health issues are not documented [facility] Work Phone: Clinical Notes 02-28-2020 to 02-11-2023 Chris Cazares, DO - 01/16/2023 2:30 PM Yared Cazares, DO - 01/16/2023 2:30 PM Jakob Vo MD - 12/13/2022 9:00 AM Beatrice Vo MD - 11/01/2022 8:00 AM EDT Note Date & Type Note Facility 02-11-2023 Note HNO ID: [id number] Author: Raul Rivera MD Service: ? Author Type: Physician Type: Progress Notes Filed: 02/11/2023 1:38 PM Note Text: ASSESSMENT/PLAN: 1. 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 Systane Complete Artificial Tears - Use 1 Drop into both eyes three times a day. 2. Pseudophakia of both eyes - ICD9: V43.1, ICD10: Z96.1 - Intraocular lens in good position both eyes 3. High myopia, both eyes - ICD9: 367.1, ICD10: H52.13 - Monitor 4. Atrial fibrillation, unspecified type (HCC) - ICD9: 427.31, ICD10: I48.91 5. Essential hypertension - ICD9: 401.9, ICD10: I10 6. Benign prostatic hyperplasia without lower urinary tract symptoms - ICD9: 600.00, ICD10: N40.0 - Continue to monitor with PCP I have confirmed and edited as necessary the relevant ophthalmic history, review of systems, surgical history, and ophthalmological examination findings as obtained by the ophthalmic technical staff. I have seen and examined Chasity Sandra. I have discussed the examination findings, diagnosis, and treatment options with Chasity Sandra and/or his family. I have also reviewed and agree with the assessment and plan as stated above and agree with all its relevant components. I gave the patient the opportunity to ask questions about the findings, diagnosis, and treatment options. Raul Rivera MD [facility] 01-16-2023 History of Presen t illness Narrative Subjective Patient ID: Chasity Sandra Rl is a 72 y.o. male who presents for Dyspepsia (Has had some heart issues since the beginning of symptoms, had heart cath and cardioversion. Patient is taking omeprazole. Had cardioversion a week ago and symptoms of indigestion is better. Patient reports lots of danielle such as belching and flatulence ). HPI Review of Systems Constitutional: Negative. HENT: Negative. Eyes: Negative. Respiratory: Negative. Cardiovascular: Negative. Gastrointestinal: Negative. Endocrine: Negative. Genitourinary: Negative. Musculoskeletal: Negative. Neurological: Negative. Hematological: Negative. Psychiatric/Behavioral: Negative. Objective Physical Exam Vitals and nursing note reviewed. Constitutional: Appearance: Normal appearance. HENT: Head: Normocephalic. Mouth/Throat: Mouth: Mucous membranes are moist. Pharynx: Oropharynx is clear. Eyes: Pupils: Pupils are equal, round, and reactive to light. Cardiovascular: Rate and Rhythm: Normal rate and regular rhythm. Pulmonary: Effort: Pulmonary effort is normal. Breath sounds: Normal breath sounds. Abdominal: General: Abdomen is flat. Bowel sounds are normal. Palpations: Abdomen is soft. Musculoskeletal: General: Normal range of motion. Cervical back: Normal range of motion and neck supple. Skin: General: Skin is warm and dry. Neurological: General: No focal deficit present. Mental Status: He is alert and oriented to person, place, and time. Psychiatric: Mood and Affect: Mood normal. Behavior: Behavior normal. Assessment/Plan Subjective Patient ID: Chasity Shine is a 72 y.o. male who presents for Dyspepsia (Has had some heart issues since the beginning of symptoms, had heart cath and cardioversion. Patient is taking omeprazole. Had cardioversion a week ago and symptoms of indigestion is better. Patient reports lots of danielle such as belching and flatulence ). 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 Underwent cardioversion 2 days ago and states that his symptoms of irritation bloating and nausea largely dissipated. He tends to have some pain in his right upper quadrant which she states feels full. Approximately 1 week ago he had a episode of bloating associate with right upper quadrant discomfort rating up his right scapula into his back. He has had no diarrhea. Denies any family history of gallstones. He is currently on PPI therapy. Review of Systems Constitutional: Negative. HENT: Negative. Eyes: Negative. Respiratory: Negative. Cardiovascular: Negative. Gastrointestinal: Negative. Endocrine: Negative. Genitourinary: Negative. Musculoskeletal: Negative. Neurological: Negative. Hematological: Negative. Psychiatric/Behavioral: Negative. Objective Physical Exam Vitals and nursing note reviewed. Constitutional: Appearance: Normal appearance. HENT: Head: Normocephalic. Mouth/Throat: Mouth: Mucous membranes are moist. Pharynx: Oropharynx is clear. Eyes: Pupils: Pupils are equal, round, and reactive to light. Cardiovascular: Rate and Rhythm: Normal rate and regular rhythm. Pulmonary: Effort: Pulmonary effort is normal. Breath sounds: Normal breath sounds. Abdominal: General: Abdomen is flat. Bowel sounds are normal. Palpations: Abdomen is soft. Musculoskeletal: General: Normal range of motion. Cervical back: Normal range of motion and neck supple. Skin: General: Skin is warm and dry. Neurological: General: No focal deficit present. Mental Status: He is alert and oriented to person, place, and time. Psychiatric: Mood and Affect: Mood normal. Behavior: Behavior normal. Assessment/Plan Problem List Items Addressed This Visit ICD-10-CM Abdominal bloating - Primary R14.0 Relevant Orders US abdomen complete At this point given his cardiomyopathy and improvement would not recommend endoscopy. Continue Protonix advised him to eat small frequent meals avoid overeating limit carbonated beverages avoid complex fatty foods. Arrange right upper quadrant ultrasound will be notified of results by telephone documented in this encounter [facility] Work Phone: 12-13-2022 History of Presen t illness Narrative Subjective Patient ID: Rl Sandra is a 72 y.o. male who presents for Hospital Follow-up. HPI Increase lasix 40 mgbid,and will re eval coreg dose withn dr mccallum. Reviewed events of last co months reviewed. Gdmt reviewed, afib tx reviewed. Limitation onactivity reivewed Review of Systems Decresed act tolerance Objective BP 106/62 Pulse 96 Ht 1.727 m (5' 8 ) Wt 76.7 kg (169 lb) SpO2 94% BMI 25.70 kg/m Physical Exam A fib at 90/min, lungs clear, 1+edema Assessment/Plan Problem List Items Addressed This Visit ICD-10-CM Atrial fibrillation (CMS/HCC) I48.91 Relevant Medications carvedilol (Coreg) 3.125 mg tablet Non-ischemic cardiomyopathy (CMS/HCC) - Primary I42.8 Relevant Medications carvedilol (Coreg) 3.125 mg tablet Other Visit Diagnoses Codes Dyspepsia R10.13 documented in this encounter [facility] Work Phone: 11-01-2022 History of Presen t illness Narrative Subjective Patient ID: Chasity Sandra is a 72 y.o. male who presents for Recheck GERD, SOB. HPI had a lot of gas woth protonix, switched to prilosec and tlerated. 2 nights ago was misable from 2 am on, but today is best flelt in weeks Reviewed options and we will refer to GI and by the time he gets to the appointment they can determine the need for endoscopy. Reviewed that he is not been on for 6 weeks yet will be given progress for endoscopy should he not be resolved. Weight has been maintained there is no evidence of melena or hematochezia Notes change in exercise tolerance, neg stress, in fib, intolerant to betabloacker. Has had stress in the past. Should follow-up with cardiology to determine whether change in exercise tolerance is ischemic in nature or an adequate rate control Review of Systems As per [facility] Objective BP 120/72 Pulse 58 Ht 1.727 m (5' 8 ) Wt 73.9 kg (162 lb 14.4 oz) SpO2 95% BMI 24.77 kg/m Physical Exam Heart irregularly irregular rate in the 80s lungs clear to auscultation abdomen is soft nontender no solid or pulsatile masses Assessment/Plan Problem List Items Addressed This Visit Atrial fibrillation (CMS/HCC) - Primary Relevant Orders Follow Up In Primary Care - Established Other Visit Diagnoses Dyspepsia Relevant Medications omeprazole (PriLOSEC) [address] capsule Other Relevant Orders Referral to Gastroenterology Follow Up In Primary Care - Established Recc prilosec for another month and refer gi if not 100% documented in this encounter [facility] Work Phone: 10-31-2022 History of Presen t illness Narrative Patient: Chasity Sandra Date of : 1950 (72 y.o.) PCP: Eben Vo MD Procedures ASSESSMENT/PLAN: Chasity Sandra 72 y.o. male with history of status post excision of a poro -keratoma versus verruca plantaris of the fifth metatarsal base left foot doing better. Current exostosis of the fifth metatarsal base left foot. 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 Plan: I shaved down the callus that was starting to form where the procedure on the fifth metatarsal base of the left foot have been performed. Patient was encouraged to use urea cream on the callus twice daily. I have advised patient to wear his good shoes with soft inserts. Patient to call if he has any further problems. Assessment & plan notes cannot be loaded without a specified hospital service. SUBJECTIVE: History Since Last Visit: Patient is a 72-year-old male seen at the office today status post excision of a Poro keratoma versus a verruca of the fifth metatarsal base the left foot. Patient does have an underlying bone spur that is reoccurring on the fifth metatarsal base of the left foot. He does have a history of degenerative arthritis of the tarsometatarsal joint of the right foot. Review of Systems: OBJECTIVE: Physical Examination: Integument-skin is warm dry and supple bilateral feet. The wound is almost healed on the lateral plantar aspect of the fifth metatarsal base left foot. Patient does have some hyperkeratotic tissue surrounding the underlying bony prominence. Neuro-intact bilateral feet Musculoskeletal-patient has a metatarsus adductus of the left foot. Patient has a recurrent bony prominence of the fifth metatarsal base of the left foot. Patient has a collapsed decreased medial longitudinal arch bilateral feet. Patient has some dorsal spurring of the tarsometatarsal joint on the right foot. Vascular-DP PT pulses are palpable bilateral feet. BP 118/66 (BP Location: Left arm, Patient Position: Sitting, BP Cuff Size: Adult) Pulse 77 Temp 98.3 F (36.8 C) (Infrared) Laboratory and Additional Data Reviewed: Reviewed:[id number]} XR Calcaneus Left 2+ Views (Standard) X-rays 2 views left heel: There is a slight varus tilt of the calcaneus. Patient has a decreased medial longitudinal arch documented in this encounter [facility] 10-17-2022 History of Presen t illness Narrative Patient: Chasity Sandra Date of : 1950 (72 y.o.) PCP: Eben Vo MD Procedures After obtaining consent I anesthetized the fifth metatarsal base of the left foot with 2 cc of 2% lidocaine with epinephrine. The foot was then prepped and draped. I then sharply excised the lesion from the fifth metatarsal base of the left foot. The wound was cauterized with a Hyfrecator setting of 15. Betadine ointment and dry sterile dressing were applied. Patient instructed to remove dressing tomorrow, apply Neosporin and a Band-Aid daily until healed. ASSESSMENT/PLAN: Chasity Sandra 72 y.o. male with history of painful wart with surrounding callus of the fifth metatarsal base left foot. Plan: Patient wants to move forward with having the wart removed today. Assessment & plan notes cannot be loaded without a specified hospital service. SUBJECTIVE: History Since Last Visit: Patient 72-year-old male whose had a history of calluses and warts of both feet. Patient has a painful spot on the fifth metatarsal base left foot that he like to have removed today. Review of Systems: OBJECTIVE: Physical Examination: Integument-there is a 2 to 3 mm painful papillomatous lesion with surrounding hyperkeratotic tissue on the lateral plantar aspect of the fifth metatarsal base left foot. Neuro-intact left foot Musculoskeletal-bony prominence of the fifth metatarsal base left foot Vascular-DP PT pulses are palpable left foot BP 116/77 (BP Location: Right arm, Patient Position: Sitting, BP Cuff Size: Adult) Pulse 77 Temp 97.5 F (36.4 C) (Infrared) Laboratory and Additional Data Reviewed: Reviewed:[id number]} XR Calcaneus Left 2+ Views (Standard) X-rays 2 views left heel: There is a slight varus tilt of the calcaneus. Patient has a decreased medial longitudinal arch documented in this encounter [facility] 10-15-2022 History of Presen t illness Narrative Subjective Patient ID: Chasity Sandra is a 72 y.o. male who presents for GERD. HPI Follows with Cardiology in [place] Aching in epigastric area, Some LEMUS and palpitations at times + burping/belching,no dysphagia, no worse with eating, woke at night once, no regurgitation, no cough/ST/hoarseness, no change in Bms, no blood in stool, hurts if lifting or pulling at abdomen Seen Cardiology a month Used an OTC PPI (1-2, not much help) Review of Systems Constitutional: Negative for activity change, appetite change and fatigue. Respiratory: Negative for cough, chest tightness and shortness of breath. Cardiovascular: Positive for chest pain. Negative for palpitations and leg swelling. Gastrointestinal: Positive for abdominal pain. Negative for constipation, diarrhea, nausea and vomiting. Objective BP 108/64 Pulse 82 Ht 1.727 m (5' 8 ) Wt 73.3 kg (161 lb 9.6 oz) SpO2 95% BMI 24.57 kg/m Physical Exam Vitals and nursing note reviewed. Constitutional: General: He is not in acute distress. Appearance: Normal appearance. He is not toxic-appearing. HENT: Head: Normocephalic and atraumatic. Right Ear: Tympanic membrane, ear canal and external ear normal. Left Ear: Tympanic membrane, ear canal and external ear normal. Nose: Nose normal. Mouth/Throat: Mouth: Mucous membranes are moist. Pharynx: Oropharynx is clear. Eyes: Extraocular Movements: Extraocular movements intact. Conjunctiva/sclera: Conjunctivae normal. Pupils: Pupils are equal, round, and reactive to light. Cardiovascular: Rate and Rhythm: Normal rate and regular rhythm. Pulses: Normal pulses. Heart sounds: Normal heart sounds. Pulmonary: Effort: Pulmonary effort is normal. Breath sounds: Normal breath sounds. Abdominal: General: Abdomen is flat. Bowel sounds are normal. There is no distension. Palpations: Abdomen is soft. There is no mass. Tenderness: There is abdominal tenderness. There is no guarding or rebound. Hernia: No hernia is present. Comments: Some tenderness along the epigastric area that actually refers into the chest. Musculoskeletal: Cervical back: Normal range of motion and neck supple. Skin: General: Skin is warm and dry. Capillary Refill: Capillary refill takes less than 2 seconds. Neurological: General: No focal deficit present. Mental Status: He is alert and oriented to person, place, and time. Mental status is at baseline. Psychiatric: Mood and Affect: Mood normal. Behavior: Behavior normal. Assessment/Plan Problem List Items Addressed This Visit Atrial fibrillation (CMS/HCC) Relevant Medications digoxin (Lanoxin) 125 MCG tablet Other Relevant Orders CBC Comprehensive Metabolic Panel Other Visit Diagnoses Chest wall pain - Primary Chest x-ray and labs, try PPI, if symptoms worsen or do not improve in the next week consider cardiac stress test Relevant Orders CBC Comprehensive Metabolic Panel Sedimentation Rate XR chest 2 views Dyspepsia Trial pantoprazole, call in a week if not helping. Relevant Medications pantoprazole (ProtoNix) 40 mg EC tablet documented in this encounter [facility] Work Phone: 08-01-2022 History of Presen t illness Narrative Patient: Chasity Sandra Date of : 1950 (72 y.o.) PCP: Eben Vo MD Procedures I debrided toenails 2 through 5 on the right foot and 1 through 5 on the left foot with nail nippers ASSESSMENT/PLAN: Chasity Sandra 72 y.o. male with history of callus on the lateral side of the fifth metatarsal left foot with recurrent exostosis. Rear foot varus. Onychomycosis of the second and third toenails on the right foot. Plan: I debrided the callus with #15 blade handle. I explained to patient to use cream twice a day and a soft orthotics. If these easy things are not helping patient would benefit from a Bowles calcaneal osteotomy to take pressure off the lateral side of the foot. Patient be nonweightbearing in a cast for 6 to 8 weeks. Patient seems to feel heel does do maintenance with conservative measures and let me know if he wants to move forward with any further surgical procedure. Assessment & plan notes cannot be loaded without a specified hospital service. SUBJECTIVE: History Since Last Visit: Patient is a 72-year-old male seen at the office for a callus that is rebuilding up over the fifth metatarsal base the left foot. Patient has fungus in his second and third toenails on the right foot that he wanted trimmed today. Patient was inquiring about further options since conventional cream, orthotics and shaving the callus down on the left foot seem to only give him temporary relief. Patient has had an ostectomy from the fifth metatarsal base in the last few years but unfortunately things are returning Review of Systems: OBJECTIVE: Physical Examination: Integument-there is a callus on the lateral side of the fifth metatarsal base the left foot. Patient has a previous scar over the dorsal lateral aspect the fifth metatarsal on the left foot. The second and third toenails on the right foot are thick yellow dystrophic crumbly with subungual debris. Toenails 2 through 5 the left foot and 4 of the 5 on the right foot were long and dystrophic. Neuro-intact bilateral Musculoskeletal-slight left calcaneal varus. Patient has a bony prominence on the lateral side of the fifth metatarsal base on the left foot. Vascular-DP PT pulses are 1 of 4 bilateral feet BP 112/68 (BP Location: Left arm, Patient Position: Sitting, BP Cuff Size: Adult) Pulse (!) 55 Temp 98.4 F (36.9 C) (Infrared) Laboratory and Additional Data Reviewed: Reviewed:[id number]} XR Calcaneus Left 2+ Views (Standard) X-rays 2 views left heel: There is a slight varus tilt of the calcaneus. Patient has a decreased medial longitudinal arch documented in this encounter [facility] 05-09-2022 History of Presen t illness Narrative Patient: Chasity Sandra Date of : 1950 (71 y.o.) PCP: Eben Vo MD Procedures ASSESSMENT/PLAN: Chasity Sandra 71 y.o. male with history of recurrent spur on the fifth metatarsal base left foot with callus. Plan: I debrided the callus off the fifth metatarsal base left foot. I have asked patient to use his urea cream on this area twice a day. Patient is also encouraged to wear his accommodative orthotics and wider shoes. Patient to reappoint as needed. Assessment & plan notes cannot be loaded without a specified hospital service. SUBJECTIVE: History Since Last Visit: Patient 71-year-old male seen at the office today complaining of a callus and bump that started to build up on the fifth metatarsal base of the left foot. Patient had an ostectomy done in the past which is held up for a number of years but recently things have started to recur. Patient relates the wart that we treated on the right heel has since gone away Review of Systems: OBJECTIVE: Physical Examination: Integument-there is a focal callus on the lateral aspect the fifth metatarsal base the left foot. Previous scar over the fifth metatarsal base from an ostectomy on the left foot Neuro-intact bilateral Musculoskeletal-Bony prominence lateral side of the fifth metatarsal base left foot. Vascular-DP PT pulse are palpable on the left foot BP 114/62 (BP Location: Left arm, Patient Position: Sitting, BP Cuff Size: Adult) Pulse (!) 52 Temp 98.6 F (37 C) (Infrared) Laboratory and Additional Data Reviewed: Reviewed:[id number]} XR Foot Right 3+ Views (Standard) X-rays 3 views right foot: There is a new onset of avulsion fracture fragment of the navicular tuberosity medially. Patient had an ostectomy of the fifth metatarsal base laterally. Patient has significant degenerative changes of the cuneiforms and metatarsal bases. 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 Patient has a decreased medial longitudinal arch documented in this encounter [facility] 01-31-2022 History of Presen t illness Narrative Patient: Chasity Sandra Date of : 1950 (71 y.o.) PCP: Eben Vo MD Procedures I debrided toenails 2 through 5 bilateral feet with nail nippers. ASSESSMENT/PLAN: Chasity Sandra 71 y.o. male with history of painful verruca of the right heel improving slowly. Onychomycosis of the second and fifth toenails being treated with Penlac on the right foot. Plan: I debrided the lesion on the right heel with a #15 blade and handle. Applied Cantharone with occlusion to be kept on for 24 hours. I instructed patient to remove the lesion and blister tomorrow and cover with Neosporin and a Band-Aid till healed. Appoint in 3 weeks Assessment & plan notes cannot be loaded without a specified hospital service. SUBJECTIVE: History Since Last Visit: Patient is 71-year-old male seen in the office today for a painful wart on the bottom of his right heel. Patient relates it still noticeable when he walks. Patient is started his new Penlac medication on his second and fifth toenails right foot which seems to be helping. Review of Systems: Unremarkable OBJECTIVE: Physical Examination: Integument-the second and fifth toenails on the right foot are thick yellow dystrophic crumbly with subungual debris. Patient has a white papillomatous lesion with pinpoint bleeders and pain on afjd-mn-drsw squeeze test on the plantar aspect of the right heel. 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 Vascular-DP and PT pulses are palpable bilateral feet. BP 133/75 (BP Location: Left arm, Patient Position: Sitting, BP Cuff Size: Adult) Pulse 61 Temp 98.8 F (37.1 C) (Infrared) Laboratory and Additional Data Reviewed: Reviewed:[id number]} XR Foot Right 3+ Views (Standard) X-rays 3 views right foot: There is a new onset of avulsion fracture fragment of the navicular tuberosity medially. Patient had an ostectomy of the fifth metatarsal base laterally. Patient has significant degenerative changes of the cuneiforms and metatarsal bases. 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 Patient has a decreased medial longitudinal arch documented in this encounter [facility] 01-03-2022 History of Presen t illness Narrative Patient: Chasity Sandra Date of : 1950 (71 y.o.) PCP: Eben Vo MD Procedures ASSESSMENT/PLAN: Chasity Sandra 71 y.o. male with history of verruca plantaris of the right heel. Onychomycosis of the fifth toenail on the right foot. Plan: I debrided the lesions and treated with histo freeze for 30 seconds. Prescribed Penlac for the fifth digit toenail to be applied daily. Reappoint in 1 month. Assessment & plan notes cannot be loaded without a specified hospital service. SUBJECTIVE: History Since Last Visit: Patient is a 71-year-old male who comes in with new warts on the right heel since I saw him last. Patient is also concerned about the fungus in the fifth toenail on the right foot that he like to have treated today. Review of Systems: Arthritis of the right foot OBJECTIVE: Physical Examination: Integument-there are 2 lesions on the plantar aspect of the right foot with pinpoint bleeders and pain on yvot-jk-pfyj squeeze test consistent with verruca. The fifth toenail on the right foot was thick yellow dystrophic crumbly with subungual debris. Neuro-intact bilateral Musculoskeletal-decreased medial longitudinal arch bilateral feet. 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 Vascular-DP PT pulses are palpable bilateral feet BP 121/67 (BP Location: Left arm, Patient Position: Sitting, BP Cuff Size: Adult) Pulse (!) 48 Temp 98.5 F (36.9 C) (Infrared) Laboratory and Additional Data Reviewed: Reviewed:[id number]} XR Foot Right 3+ Views (Standard) X-rays 3 views right foot: There is a new onset of avulsion fracture fragment of the navicular tuberosity medially. Patient had an ostectomy of the fifth metatarsal base laterally. Patient has significant degenerative changes of the cuneiforms and metatarsal bases. 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 Patient has a decreased medial longitudinal arch documented in this encounter [facility] 08-02-2021 History of Presen t illness Narrative Patient: Chasity Sandra Date of : 1950 (71 y.o.) PCP: Eben Vo MD Procedures ASSESSMENT/PLAN: Chasity Sandra 71 y.o. male with history of painful verruca of the right foot x1. Plan: Debrided the lesion treated with histo freeze for 30 seconds. Patient had a callus on the lateral side the fifth metatarsal base which I did debride as well. Patient is to call if he has any further problems or recurrence. Assessment & plan notes cannot be loaded without a specified hospital service. SUBJECTIVE: History Since Last Visit: Patient is a 71-year-old male comes in for follow-up of his wart on the bottom of his right foot. He states it started to grow after about a month. Patient like to have it treated today. Patient is also concerned about a callus which was building up in the side of his fifth metatarsal base from his boot. Review of Systems: Unremarked OBJECTIVE: Physical Examination: Integument-there is a small papillomatous lesion that is started to recur on the plantar aspect of the fifth metatarsal base right foot. Patient also has a callus on lateral side the fifth metatarsal base as well. Patient had interruption of the skin lines and pain with tvyt-in-tqjw squeeze test for the verruca Neuro-intact bilateral feet Musculoskeletal-decreased medial longitudinal arch bilateral feet with osteoarthritis of the right tarsometatarsal Vascular-DP and PT pulses palpable bilateral feet BP 107/64 (BP Location: Left arm, Patient Position: Sitting, BP Cuff Size: Adult) Pulse (!) 57 Temp 98 F (36.7 C) (Oral) Laboratory and Additional Data Reviewed: Reviewed:[id number]} XR Foot Right 3+ Views (Standard) X-rays 3 views right foot: There is a new onset of avulsion fracture fragment of the navicular tuberosity medially. Patient had an ostectomy of the fifth metatarsal base laterally. Patient has significant degenerative changes of the cuneiforms and metatarsal bases. 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 Patient has a decreased medial longitudinal arch documented in this encounter [facility] 07-12-2021 History of Presen t illness Narrative Patient: Chasity Sandra Date of : 1950 (71 y.o.) PCP: Eben Vo MD Procedures ASSESSMENT/PLAN: Chasity Sandra 71 y.o. male with history of resolved verruca of the left foot and 2 on the right heel. Plan: I debrided the lesions on the right heel and treated with histo freeze for 30 seconds. I told patient to call if these are not gone in 2 weeks. Assessment & plan notes cannot be loaded without a specified hospital service. SUBJECTIVE: History Since Last Visit: Patient is a 71-year-old male comes in the office today for verruca of the left foot that we treated with histo freeze 2 weeks ago. Patient relates things are going well. Patient does give a concern for the bottom of the right foot today were a couple of new warts started. Review of Systems: Unremarkable OBJECTIVE: Physical Examination: Integument-there are 2 lesions that are papillomatous with pinpoint bleeders and pain on fryg-np-bnkz squeeze test on the bottom of the right heel. The lesions of the left foot have resolved. Neuro-intact bilateral feet Musculoskeletal-stiffness and swelling of the right ankle Vascular-DP and PT pulses are palpable bilateral feet BP 108/60 (BP Location: Right arm, Patient Position: Sitting, BP Cuff Size: Adult) Pulse (!) 44 Temp 97.9 F (36.6 C) (Infrared) Laboratory and Additional Data Reviewed: Reviewed:[id number]} XR Foot Right 3+ Views (Standard) X-rays 3 views right foot: There is a new onset of avulsion fracture fragment of the navicular tuberosity medially. Patient had an ostectomy of the fifth metatarsal base laterally. Patient has significant degenerative changes of the cuneiforms and metatarsal bases. 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 Patient has a decreased medial longitudinal arch documented in this encounter [facility] 06-21-2021 History of Presen t illness Narrative Patient: Chasity Sandra Date of : 1950 (71 y.o.) PCP: Eben Vo MD Procedures ASSESSMENT/PLAN: Chasity Sandra 71 y.o. male with history of recurrent verruca on the bottom of the left foot, arthritic pain of the right ankle. Plan: I debrided the lesion with a #15 blade from the bottom of the left foot, treated with histo freeze for 30 seconds, applied Band-Aid and gave patient a aperture pad to take pressure off the area. I offered patient a cortisone shot for the right ankle but he was not interested. I have encouraged him to take his Celebrex and see me in 3 weeks. We may remove the wart from the left foot if it still bothering him. Assessment & plan notes cannot be loaded without a specified hospital service. SUBJECTIVE: History Since Last Visit: Patient is 71-year-old male who comes in for a painful verruca on the bottom of the left fifth metatarsal base and follow-up of an ostectomy of the fifth metatarsal base of the right foot. Patient relates the right foot lateral side is doing well but has been getting some arthritic symptoms of the right ankle. Patient is in need of some new cyjt-zjt-pamuwir orthotics so I told him to go to [facility] for a new set. Review of Systems: Unremarkable OBJECTIVE: Physical Examination: Integument-there is a papillomatous lesion with pinpoint bleeders and pain on side to side squeeze test on the plantar aspect of the fifth metatarsal shaft of the left. There is a well-healed scar on the lateral side the fifth metatarsal base of the right foot Neuro-intact bilateral feet. Patient has some swelling and pain across the anterior aspect the right ankle joint as well as over the right subtalar joint. Patient's tarsometatarsal joint on the right foot is stiff. There is no pain over the base the fifth metatarsal on the right Musculoskeletal-the bony prominences of both fifth metatarsal bases has been removed. Vascular-DP and PT pulse are palpable bilateral feet BP 113/70 (BP Location: Left arm) Pulse 77 Temp 98 F (36.7 C) (Oral) Laboratory and Additional Data Reviewed: Reviewed:[id number]} XR Foot Right 3+ Views (Standard) X-rays 3 views right foot: There is a new onset of avulsion fracture fragment of the navicular tuberosity medially. Patient had an ostectomy of the fifth metatarsal base laterally. Patient has significant degenerative changes of the cuneiforms and metatarsal bases. 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 Patient has a decreased medial longitudinal arch documented in this encounter [facility] 2021 History of Presen t illness Narrative Patient: Chasity Sandra Date of : 1950 (71 y.o.) PCP: Eben Vo MD Procedures ASSESSMENT/PLAN: Chasity Sandra 71 y.o. male with history of status post excision of bone spur fifth metatarsal base right foot doing well. Posterior tibial tendinitis of the right foot much improved. Verruca on the plantar aspect of the fifth metatarsal left foot. Plan: Patient was told he can return back to his new work boots for both feet. I also instructed him to use his nonarticulating AFO in good supportive shoes of the right foot. I did debride the verruca on the bottom of the left foot and treated it with Histofreeze for 30 seconds. Reappoint in 1 month Assessment & plan notes cannot be loaded without a specified hospital service. SUBJECTIVE: History Since Last Visit: 71-year-old male who returns the office for posterior tibial tendinitis of the right foot, status post excision of fifth metatarsal base exostosis of the right foot and new onset of a wart on the ball of the left foot. Patient's been wearing his cam walker boot on the right foot states it feels much better. 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 OBJECTIVE: Physical Examination: Integument-there is a white papillomatous lesion with a pinpoint bleeders and pain on oxof-ks-xgif squeeze test on the bottom of the fifth metatarsal base of the left foot. Patient is a callus on the lateral sides of both fifth metatarsal bases has resolved. Neuro-intact bilateral feet Musculoskeletal-decreased pain and swelling over the posterior tibial tendon and navicular tuberosity of the right foot. Patient had no pain over the lateral side of fifth metatarsal base in the right foot today Vascular-DP PT pulses are 1 of 4 bilateral feet BP 128/80 (BP Location: Right arm) Pulse 67 Temp 97.7 F (36.5 C) (Oral) Laboratory and Additional Data Reviewed: Reviewed:[id number]} XR Foot Right 3+ Views (Standard) X-rays 3 views right foot: There is a new onset of avulsion fracture fragment of the navicular tuberosity medially. Patient had an ostectomy of the fifth metatarsal base laterally. Patient has significant degenerative changes of the cuneiforms and metatarsal bases. 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 Patient has a decreased medial longitudinal arch documented in this encounter [facility] 05-10-2021 History of Presen t illness Narrative Patient: Chasity Sandra Date of : 1950 (70 y.o.) PCP: Eben Vo MD Procedures ASSESSMENT/PLAN: Chasity Sandra 70 y.o. male with history of status post excision of fifth metatarsal base exostosis right foot doing well. New onset of avulsion fracture of the navicular tuberosity right foot. Plan: I have asked patient to wear his cam walker boot for another 2 weeks. Patient is to bring his articulating AFO at the next visit we will george-ray him and consider graduating to it. I told patient that his midfoot bones are not in great health due to his past injuries and fusion. Patient has to exercise caution with activities. Reappoint in 2 weeks for x-rays DP medial bleak and lateral of the right foot. Assessment & plan notes cannot be loaded without a specified hospital service. SUBJECTIVE: History Since Last Visit: Patient is a 70-year-old male comes in status post excision of exostosis on the lateral side of the right foot. Patient relates he stepped out of his patio this past weekend and felt a pull or injury to the medial side of his right foot. Patient states the foot has been swollen. Review of Systems: History of Lisfranc's injury with arthritis and fusion. OBJECTIVE: Physical Examination: Integument-the lateral side of the right foot the callus has disappeared and the eschar is almost gone. Neuro-intact right foot Musculoskeletal-pain and swelling over the posterior tibial tendon at the insertion of the navicular tuberosity right foot. Patient has a decreased medial longitudinal arch on the right foot Vascular-DP PT pulses are 1 of 4 right foot. BP 123/74 (BP Location: Left arm) Pulse (!) 50 Temp 98.1 F (36.7 C) (Oral) Laboratory and Additional Data Reviewed: Reviewed:[id number]} XR Foot Right 3+ Views (Standard) X-rays 3 views right foot: There is been excision of the fifth metatarsal base exostosis lateral plantarly. Patient's had past tarsometatarsal joint fusion documented in this encounter [facility] 04-19-2021 History of Presen t illness Narrative Patient: Chasity Sandra Date of : 1950 (70 y.o.) PCP: Eben Vo MD Procedures ASSESSMENT/PLAN: Chasity Sandra 70 y.o. male with history of status post excision of exostosis fifth metatarsal base right foot doing well. Plan: I told patient that some of the swelling is probably from being out and about further appointments today. Patient currently is on Xarelto 20 mg a day. I doubt if he has a DVT. Applied bacitracin to bandage to the right foot. Patient to continue using his cam walker boot and staying nonweightbearing other than transferring with the heel. Appoint in 1 week to have stitches removed. Refilled his Assessment & plan notes cannot be loaded without a specified hospital service. SUBJECTIVE: History Since Last Visit: Patient 70-year-old male status post excision of fifth metatarsal base exostosis causing callus and and pain. Patient underwent exostectomy last Friday and has been doing well. Patient did have some swelling on the ankle and foot he was concerned about today. Patient's relates that they have been out further appointments in the foot is been down a lot today. Patient is currently takes Xarelto 20 mg a day Review of Systems: Unremarkable OBJECTIVE: Physical Examination: Integument-the incision is well coapted on the lateral side of the fifth metatarsal base right foot. There is no redness no drainage no odor no signs of infection. Neuro-intact right foot Musculoskeletal-there is some pitting edema of the lower ankle and foot. No pain in the right calf Vascular-pulses are palpable right BP 132/68 (BP Location: Left arm, Patient Position: Sitting, BP Cuff Size: Adult) Pulse 69 Temp 98.2 F (36.8 C) (Oral) Laboratory and Additional Data Reviewed: Reviewed:[id number]} XR OR Foot Rt 2 Views Narrative: EXAMINATION: XR OR FOOT RIGHT 2 VIEWS HISTORY: ORDERING SYSTEM PROVIDED HISTORY: Excision bone spur right 5th metatarsal, TECHNOLOGIST PROVIDED HISTORY: Illness/Other Reason for exam: Excision bone spur right 5th metatarsal Encounter Type: Initial Additional signs and symptoms: Fluoro dose in mGy: .28 ORDERING SYSTEM PROVIDED DIAGNOSIS CODES: Z01.818 Pre-op testing M89.8X7 Exostosis of right foot M79.674 Pain in right toe(s) COMPARISON: Right foot 11/23/2020. TECHNIQUE: Fluoro Dose Ka,r mGy: Fluoro dose in Ka,r mGy: 0.28 Intraoperative fluoroscopic support. FINDINGS: 3 fluoroscopic images of the right foot. Status post partial excision of the lateral plantar base of the 5th metatarsal. Advanced degenerative changes of the midfoot and tarsometatarsal articulations, better seen on comparison radiographs. No retained radiopaque hardware is identified. Impression: Intraoperative fluoroscopic support provided for partial excision of the base of 5th metatarsal. No indication on the provided images that intraoperative interpretation was performed. See operative note. Workstation ID: [id number] documented in this encounter [facility] 04-13-2021 Note Addended by: MEL PARKER on: 04/13/2021 07:40 AM Modules accepted: Orders [facility] 04-13-2021 Miscellaneous Notes Addended by: MEL PAUL on: 04/13/2021 07:40 AM Modules accepted: Orders documented in this encounter [facility] 04-05-2021 History of Presen t illness Narrative Podiatry Outpatient H&P 04/05/2021 Mel Paul DPM @[email or web address]@ Patient: Chasity Sandra Date of : 1950 (70 y.o.) [facility] ASSESSMENT/PLAN: Chasity Sandra 70 y.o. 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 Calluses on the plantar aspect of the fifth metatarsal base of the right foot. Onychomycosis of the second and fifth toenails right foot. Plan: On his visit I debrided the toenails 2 through 5 bilateral feet with nail nippers. Recommended patient use his Penlac for his fungal toenails daily I also debrided the callus off the fifth metatarsal base on the right foot. Patient scheduled for an ostectomy of the fifth metatarsal base of the right foot under MAC anesthesia. Patient will be using a cam walker boot and crutches for partial weightbearing for 30 days. I explained risks and complications of all the surgery which include infection, bleeding, numbness, delayed healing, swelling, scar and recurrence. After all questions were answered patient signed the consent form. Assessment & plan notes cannot be loaded without a specified hospital service. SUBJECTIVE: Chief Complaint/Reason for Visit: Patient is a 70-year-old male seen at the office complaining of a painful callus on the plantar lateral aspect the fifth metatarsal base of the right foot History of Present Illness: Chasity Sandra is a 70 y.o. male presenting from home with complaint of painful callus on the lateral side the fifth metatarsal base on the right foot. 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 Patient unfortunately has developed a bone spur on the lateral side of the fifth metatarsal base which is causing a recurrent callus problem. Patient had the same issue on the left lateral foot and had surgery which is provided him with relief. Patient was asking for nail and callus trimming today upon his visit. Review of Systems: Past Medical History: Diagnosis Date Arthritis Atrial fibrillation (HCC) Cataract Foot cramps Irregular heart beat Past Surgical History: Procedure Laterality Date APPENDECTOMY CARPAL TUNNEL RELEASE Bilateral COLONOSCOPY FOOT SURGERY R foot x 4 JOINT REPLACEMENT Left 2018 KNEE SURGERY 3 - TONSILLECTOMY Family History Problem Relation Age of Onset Diabetes Mother Heart disease Father Diabetes Sister Pancreatic cancer Brother Heart disease Sister Diabetes Sister Social History Tobacco Use Smoking Status Never Smoker Smokeless Tobacco Current User Tobacco Comment does use chew tobacco ( 1 pouch every 2 to 3 weeks ) Additional History Comments: None Allergies: Bactrim [sulfamethoxazole-trimethoprim] and Sulfa (sulfonamide antibiotics) Current HOME Medications: Outpatient Medications Marked as Taking for the 04/05/21 encounter (Office Visit) with Mel Paul DPM: ascorbic acid (VITAMIN C ORAL), Take by mouth Morning . rivaroxaban (XARELTO) 10 mg tablet, Take 10 mg by mouth daily Morning . OBJECTIVE: Physical Examination: Integument-there is a callus on the lateral aspect the fifth metatarsal base right foot. The second and fifth toenails are thick yellow dystrophic crumbly with subungual debris Neuro-intact bilateral Musculoskeletal-bony prominence on the lateral side the fifth metatarsal base right foot. A stiff tarsometatarsal joint of both feet Vascular-DP and PT pulses are 1 out of 4 bilateral feet. BP 117/69 (BP Location: Right arm, Patient Position: Sitting, BP Cuff Size: Adult) Pulse (!) 58 Temp 97.9 F (36.6 C) (Oral) Laboratory and Additional Data Reviewed: Reviewed 04/05/21 9:01 AM: Radiology documented in this encounter [facility] 04-05-2021 History of Presen t illness Narrative Podiatry Outpatient H&P 04/05/2021 Mel Paul DPM @HOSPITALNAME@ Patient: Chasity Sandra Date of : 1950 (70 y.o.) PCP: Eben Vo MD [facility] ASSESSMENT/PLAN: Chasity Sandra 70 y.o. 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 Calluses on the plantar aspect of the fifth metatarsal base of the right foot. Onychomycosis of the second and fifth toenails right foot. Plan: On his visit I debrided the toenails 2 through 5 bilateral feet with nail nippers. Recommended patient use his Penlac for his fungal toenails daily I also debrided the callus off the fifth metatarsal base on the right foot. Patient scheduled for an ostectomy of the fifth metatarsal base of the right foot under MAC anesthesia. Patient will be using a cam walker boot and crutches for partial weightbearing for 30 days. I explained risks and complications of all the surgery which include infection, bleeding, numbness, delayed healing, swelling, scar and recurrence. After all questions were answered patient signed the consent form. Assessment & plan notes cannot be loaded without a specified hospital service. SUBJECTIVE: Chief Complaint/Reason for Visit: Patient is a 70-year-old male seen at the office complaining of a painful callus on the plantar lateral aspect the fifth metatarsal base of the right foot History of Present Illness: Chasity Sandra is a 70 y.o. male presenting from home with complaint of painful callus on the lateral side the fifth metatarsal base on the right foot. 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 Patient unfortunately has developed a bone spur on the lateral side of the fifth metatarsal base which is causing a recurrent callus problem. Patient had the same issue on the left lateral foot and had surgery which is provided him with relief. Patient was asking for nail and callus trimming today upon his visit. Review of Systems: Past Medical History: Diagnosis Date Arthritis Atrial fibrillation (HCC) Cataract Foot cramps Irregular heart beat Past Surgical History: Procedure Laterality Date APPENDECTOMY CARPAL TUNNEL RELEASE Bilateral COLONOSCOPY FOOT SURGERY R foot x 4 JOINT REPLACEMENT Left 2018 KNEE SURGERY 3 - TONSILLECTOMY Family History Problem Relation Age of Onset Diabetes Mother Heart disease Father Diabetes Sister Pancreatic cancer Brother Heart disease Sister Diabetes Sister Social History Tobacco Use Smoking Status Never Smoker Smokeless Tobacco Current User Tobacco Comment does use chew tobacco ( 1 pouch every 2 to 3 weeks ) Additional History Comments: None Allergies: Bactrim [sulfamethoxazole-trimethoprim] and Sulfa (sulfonamide antibiotics) Current HOME Medications: Outpatient Medications Marked as Taking for the 04/05/21 encounter (Office Visit) with Mel Paul DPM: ascorbic acid (VITAMIN C ORAL), Take by mouth Morning . rivaroxaban (XARELTO) 10 mg tablet, Take 10 mg by mouth daily Morning . OBJECTIVE: Physical Examination: Integument-there is a callus on the lateral aspect the fifth metatarsal base right foot. The second and fifth toenails are thick yellow dystrophic crumbly with subungual debris Neuro-intact bilateral Musculoskeletal-bony prominence on the lateral side the fifth metatarsal base right foot. A stiff tarsometatarsal joint of both feet Vascular-DP and PT pulses are 1 out of 4 bilateral feet. BP 117/69 (BP Location: Right arm, Patient Position: Sitting, BP Cuff Size: Adult) Pulse (!) 58 Temp 97.9 F (36.6 C) (Oral) Laboratory and Additional Data Reviewed: Reviewed 04/05/21 9:01 AM: Radiology documented in this encounter [facility] 02-22-2021 History of Presen t illness Narrative Patient: Chasity Sandra Date of : 1950 (70 y.o.) PCP: Eben Vo MD Procedures ASSESSMENT/PLAN: Chasity Sandra 70 y.o. male with history of exostosis on the lateral side of the fifth metatarsal base right foot with callus formation. Onychomycosis of toenails 2 through 5 on the right foot. Plan: I debrided toenails 1 through 5 on the left and 2 through 5 on the right with nail nippers. Patient is to continue with his Penlac on his fungal toenails on the right foot. I debrided the callus off the fifth metatarsal head on the right foot. I discussed with patient considering doing an exostectomy to remove the spur on the fifth metatarsal base of the callus does not continue to return. Patient is considering March and is to call when ready to set it up. Assessment & plan notes cannot be loaded without a specified hospital service. SUBJECTIVE: History Since Last Visit: Patient is 70-year-old male comes into the office for painful fungal toenails 2 through 5 on the right foot, callus on the lateral side the fifth metatarsal base due to an exostosis. Patient was inquiring about surgery for the bone spur. Patient also want to have his toenails trimmed today. Review of Systems: History of Lisfranc's fusion on the right foot OBJECTIVE: Physical Examination: Integument-toenails 2 through 5 on the right foot were thick yellow dystrophic crumbly with subungual debris. There is a callus on the lateral side of the fifth metatarsal base on the right foot Neuro-intact right foot Musculoskeletal-patient has a bony prominence on the lateral plantar aspect of the fifth metatarsal base of the right foot. Patient has a decreased medial longitudinal arch with a fused tarsometatarsal joint. Vascular-DP PT pulses are palpable on the right foot BP 134/70 (BP Location: Left arm) Pulse 67 Temp 98 F (36.7 C) (Oral) Laboratory and Additional Data Reviewed: Reviewed:[id number]} XR Foot Right 3+ Views (Standard) X-rays 3 views right foot. Patient has significant degenerative changes throughout the fourth and fifth metatarsal base cuboid joint. Patient has an inferior calcaneal heel spur and a decreased medial longitudinal arch. No signs of stress fracture. documented in this encounter [facility] 12-21-2020 History of Presen t illness Narrative Patient: Chasity Sandra Date of : 1950 (70 y.o.) PCP: Eben Vo MD ASSESSMENT/PLAN: Chasity Sandra 70 y.o. male with history of arthritis throughout the tarsometatarsal joint right foot. Callus on the lateral aspect the fifth metatarsal base on the right foot. Much improved plantar fasciitis of the right heel.. Onychomycosis improving with Penlac on the right foot. Plan: I debrided the callus on the lateral aspect of the right foot with a #15 blade and handle. Patient was encouraged to use his urea cream and wear his accommodative better form orthotics. 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 I recommended patient see [facility] for any new pairs. Continue with Penlac for fungal toenails. I offered patient an exostectomy for the fifth metatarsal base of the right foot if he is tired of the callus returning. patient to reappoint 2 months for nail care. Assessment & plan notes cannot be loaded without a specified hospital service. 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 Patient was seen about a month ago for plantar fasciitis of the right heel in which she received a cortisone shot. Patient is also following up for his fungal toenails and a callus that is developed on the lateral side of the fifth metatarsal base on the right foot. Review of Systems: OBJECTIVE: Physical Examination: Integument-there is a callus on the lateral side of the fifth metatarsal base on the right foot. Toenails 2 through 5 the right foot are less thick yellow dystrophic crumbly with subungual debris. Neuro-diminished sensation in the right foot Musculoskeletal-collapsed tarsometatarsal joint on the right foot with degenerative arthritic changes. Prominent fifth metatarsal base on the right foot Vascular-DP PT pulses are palpable bilateral feet BP 120/68 Pulse 60 Temp 98.1 F (36.7 C) (Infrared) Laboratory and Additional Data Reviewed: Reviewed:[id number]} XR Foot Right 3+ Views (Standard) X-rays 3 views right foot. Patient has significant degenerative changes throughout the fourth and fifth metatarsal base cuboid joint. Patient has an inferior calcaneal heel spur and a decreased medial longitudinal arch. No signs of stress fracture. documented in this encounter [facility] 11-23-2020 History of Presen t illness Narrative Patient: Chasity Sandra Date of : 1950 (70 y.o.) PCP: Eben Vo MD ASSESSMENT/PLAN: Chasity Sandra 70 y.o. male with history of degenerative arthritis of the tarsometatarsal joint, plantar fasciitis with heel spur syndrome right foot. Onychomycosis toenails 2 through 5 on the right foot. Plan: I injected the plantar fascia with 1 cc of Kenalog and 1 cc of 0.5% Marcaine plain in the right foot. Also recommended patient go back on Celebrex for his arthritic pain in the tarsometatarsal joint. I also prescribed Penlac to apply to fungal toenails 2 through 5 right foot daily for 7 days then to be removed with alcohol and repeat. Debrided the callus off the fifth metatarsal base on the right foot with a #15 blade. Reappoint in 1 month. Assessment & plan notes cannot be loaded without a specified hospital service. SUBJECTIVE: History Since Last Visit: Patient is a 70-year-old male who comes in the office complaining of diffuse pain throughout the tarsometatarsal joint on the right foot. He is also complaining of pain throughout the arch of the right foot. And he like to have his calluses trimmed off of his right foot and treat his fungal toenail. 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 There is a callus on the lateral side of the fifth metatarsal base on the right foot. Neuro-intact right foot Musculoskeletal-pain on palpation of the medial and central bands of plantar fascial ligament throughout the arch of the right foot. Patient has pain when I manipulate the tarsometatarsal joint area on the right with old degenerative arthritic changes.. 2 Vascular-DP and PT pulses are palpable on the right foot BP (!) 118/56 Pulse 65 Temp 98.4 F (36.9 C) (Infrared) Laboratory and Additional Data Reviewed: Reviewed:[id number]} XR Foot Right 3+ Views (Standard) X-rays 3 views right foot. Patient has significant degenerative changes throughout the fourth and fifth metatarsal base cuboid joint. Patient has an inferior calcaneal heel spur and a decreased medial longitudinal arch. No signs of stress fracture. documented in this encounter [facility] documented as of this encounter (statuses as of 07/25/2021) [facility] Post-traumatic arthritis of right foot- Primary Plantar fasciitis of right foot Onychomycosis of toenail [facility] Diagnosis Post-traumatic osteoarthritis of right foot- Primary Pes planovalgus Other congenital valgus deformity of feet Onychomycosis Dermatophytosis of nail [facility] Diagnosis Exostosis of right foot- Primary Onychomycosis Dermatophytosis of nail Pain in right toe(s) [facility] Exostosis of right foot- Primary Onychomycosis Dermatophytosis of nail Pain in right toe(s) [facility] Diagnosis Pre-op testing- Primary Unspecified pre-operative examination Pre-op testing Unspecified pre-operative examination Exostosis of right foot Pain in right toe(s) Pre-op testing Unspecified pre-operative examination Exostosis of right foot Pain in right toe(s) [facility] Diagnosis Pre-op testing Unspecified pre-operative examination Exostosis of right foot Pain in right toe(s) Exostosis of right foot- Primary Onychomycosis Dermatophytosis of nail Callus of foot Corns and callosities Pre-op testing Unspecified pre-operative examination Exostosis of right foot Pain in right toe(s) [facility] Diagnosis Exostosis of right foot- Primary Onychomycosis Dermatophytosis of nail Callus of foot Corns and callosities [facility] Diagnosis No post-op complications- Primary [facility]* Diagnosis Posterior tibial tendonitis, right- Primary Posterior tibial tendonitis, right [facility] Diagnosis Plantar warts- Primary Plantar wart Pain in left foot Pain in soft tissues of limb [facility]* Diagnosis Verruca vulgaris- Primary Viral warts, unspecified Arthritis of right foot Pain in left foot Pain in soft tissues of limb [facility] Diagnosis Verrucae vulgaris- Primary Viral warts, unspecified Pain in right foot Pain in soft tissues of limb [facility]* Diagnosis Patient left without being seen- Primary Surgical or other procedure not carried out because of patient's decision documented in this encounter [facility] note* Diagnosis Onychomycosis- Primary Dermatophytosis of nail Verrucae vulgaris Viral warts, unspecified Pain of toe of right foot [facility] Diagnosis Onychomycosis- Primary Dermatophytosis of nail Verrucae vulgaris Viral warts, unspecified Pain in toe of right foot Pain in soft tissues of limb Pain in right foot [M79.671 (ICD-10-CM)] Pain in soft tissues of limb [facility] Diagnosis Exostosis of left foot- Primary Callus of foot Corns and callosities [facility] Diagnosis Callus of foot- Primary Corns and callosities Acquired left hindfoot varus Exostosis Exostosis of unspecified site Pain of toe of right foot [M79.674] Onychomycosis [B35.1] Dermatophytosis of nail [facility] Diagnosis Chest wall pain- Primary Painful respiration Longstanding persistent atrial fibrillation (CMS/HCC) Dyspepsia Dyspepsia and other specified disorders of function of stomach documented in this encounter [facility] Work Phone: Evaluation note* Diagnosis Verrucae vulgaris- Primary Viral warts, unspecified Pain in left foot Pain in soft tissues of limb [facility] Diagnosis Corns- Primary Corns and callosities Verrucae vulgaris Viral warts, unspecified Exostosis Exostosis of unspecified site [facility] Diagnosis Longstanding persistent atrial fibrillation (CMS/HCC)- Primary Dyspepsia Dyspepsia and other specified disorders of function of stomach documented in this encounter [facility] Work Phone: Evaluation note* Diagnosis Non-ischemic cardiomyopathy (CMS/HCC)- Primary Other primary cardiomyopathies Longstanding persistent atrial fibrillation (CMS/HCC) Dyspepsia Dyspepsia and other specified disorders of function of stomach documented in this encounter [facility] Work Phone: Evaluation note* Diagnosis Abdominal bloating- Primary Flatulence, eructation, and gas pain documented in this encounter [facility] Work Phone: Evaluation note* Diagnosis Abdominal bloating Flatulence, eructation, and gas pain documented in this encounter [facility] Work Phone: Evaluation note* Diagnosis Abdominal bloating Flatulence, eructation, and gas pain documented in this encounter [facility] Work Phone: Evaluation note* Diagnosis Abdominal bloating Flatulence, eructation, and gas pain documented in this encounter [facility] Work Phone: History of Present illness Narrative* The patient is being seen for the subsequent annual wellness visit. * Past Medical, Surgical and Family History: reviewed and updated in chart. * Medications and Supplements: Review of all medications by a prescribing practitioner or clinical pharmacist (such as prescriptions, OTCs, herbal therapies and supplements) documented in the medical record. * No, the patient is not using opioids. * Patient Self Assessment of Health Status: good. * Tobacco use: Non-User * Alcohol use: Non-User * Illicit drug use: Non-User * Current diet: well balanced diet. * Exercise Frequency: regularly. * Depression/Suicide Screening: . * During the past 2 weeks, the patient has not felt down, depressed or hopeless. * During the past 2 weeks, the patient has not felt little interest or pleasure in doing things. * Hearing Impairment: Patient has slight hearing impairment, bilaterally. * Cognitive Impairment: No cognitive impairment observed. * Bathing: performs independently. * Dressing: performs independently. * Walking: performs independently. * Managing Finances: performs independently. * Shopping: performs independently. * Managing Medications: performs independently. * Housework / Basic Home Maintenance: performs independently. * Falls Risk Screening:. CHASITY has not fallen in the last 6 months. * Home safety risk factors: none. * Advance directives:. Advanced Care Planning discussed and documented advance care plan or surrogatedecision maker documented in the medical record. Patient has living will. Patient has healthcare POA. * Patient's End of Life Decisions: End of life decisions were reviewed with the patient. I agree to follow the patient's decisions. * No headache, chest pain, shortness of breath, dizziness, lightheadedness, or edema * having a lot of sinus issues, had seen ENT, had CT of the sinuses, had allergy testing, had sinuplasty (helped), still having a lot of drainage, using daily nasal spray, to see ENT again in the next month * Seen [employer] in November, taking Xarelto, testing shows 100% atrial fibrillation, not aware * + pain in foot and ankles, planning to do TKR at some point [facility] Work Phone: reason for referral (narrative)* Consultation (Routine) - Authorized Specialty Diagnoses / Procedures Referred By Contac t Referred To Contact Primary Care Diagnoses Longstanding persistent atrial fibrillation ([facility]/HCC) Dyspepsia Procedures Follow Up In Primary Care - Established Eben Vo MD [address] [place] [address] Referral ID Status Reason Start Date Expiration Date V isits Requested Visits Authorized [id number] Authorized 11/01/2022 04/30/2023 1 1 * Consultation (Routine) - Authorized Specialty Diagnoses / Procedures Referred By Contac t Referred To Contact Gastroenterology Diagnoses Dyspepsia Procedures [place] OFFICE/OUTPATIENT NEW HIGH MDM 60-74 MINUTES Eben Vo MD [address] [place] [address] Referral ID Status Reason Start Date Expiration Date Visits Requested Visits Authorized [id number] Authorized Specialty Services Required 11/01/2022 04/30/2023 1 1 [facility] Work Phone: Reason for referral (narrative)* Consultation (Routine) - Authorized Specialty Diagnoses / Procedures Referred By Holger thornton Referred To Contact Primary Care Diagnoses Longstanding persistent atrial fibrillation (CMS/HCC) Dyspepsia Non-ischemic cardiomyopathy (CMS/HCC) Procedures Follow Up In Primary Care Eben Vo MD [address] [place] [address] Referral ID Status Reason Start Date Expiration Date V isits Requested Visits Authorized [id number] Authorized 12/13/2022 12/13/2023 1 1 [facility] Work Phone: Assessments Diagnosis Carpal tunnel syndrome, bila teral - Primary Carpal tunnel syndrome Numbness of hand Disturbance of skin sensation Summary Purpose Family History No Family History Records Found Mother Name Dates Details Family history of diabetes m ellitus(V18.0, Z83.3) Status:Active Father Name Dates Details Family history of Floers's l larissa(495.0, J67.0) Status:Active Family history of heart fail ure(V17.49, Z82.49) Status:Active Sister Name Dates Details Family history of diabetes m ellitus(V18.0, Z83.3) Status:Active Family history of acute myoc ardial infarction(V17.3, Z82.49) Status:Active Brother Name Dates Details Family history of diabetes m ellitus(V18.0, Z83.3) Status:Active Mother Name Dates Details Family history of diabetes m ellitus(V18.0, Z83.3) Status:Active Father Name Dates Details Family history of Flores's l larissa(495.0, J67.0) Status:Active Family history of heart fail ure(V17.49, Z82.49) Status:Active Sister Name Dates Details Family history of diabetes m ellitus(V18.0, Z83.3) Status:Active Family history of acute myoc ardial infarction(V17.3, Z82.49) Status:Active Brother Name Dates Details Family history of diabetes m ellitus(V18.0, Z83.3) Status:Active Mother Name Dates Details Family history of diabetes m ellitus(V18.0, Z83.3) Status:Active Father Name Dates Details Family history of Flores's l larissa(495.0, J67.0) Status:Active Family history of heart fail ure(V17.49, Z82.49) Status:Active Sister Name Dates Details Family history of diabetes m ellitus(V18.0, Z83.3) Status:Active Family history of acute myoc ardial infarction(V17.3, Z82.49) Status:Active Brother Name Dates Details Family history of diabetes m ellitus(V18.0, Z83.3) Status:Active Mother Name Dates Details Family history of diabetes m ellitus(V18.0, Z83.3) Status:Active Father Name Dates Details Family history of Flores's l larissa(495.0, J67.0) Status:Active Family history of heart fail ure(V17.49, Z82.49) Status:Active Sister Name Dates Details Family history of diabetes m ellitus(V18.0, Z83.3) Status:Active Family history of acute myoc ardial infarction(V17.3, Z82.49) Status:Active Brother Name Dates Details Family history of diabetes m ellitus(V18.0, Z83.3) Status:Active Mother Name Dates Details Family history of diabetes m ellitus(V18.0, Z83.3) Status:Active Father Name Dates Details Family history of Flores's l larissa(495.0, J67.0) Status:Active Family history of heart fail ure(V17.49, Z82.49) Status:Active Sister Name Dates Details Family history of diabetes m ellitus(V18.0, Z83.3) Status:Active Family history of acute myoc ardial infarction(V17.3, Z82.49) Status:Active Brother Name Dates Details Family history of diabetes m ellitus(V18.0, Z83.3) Status:Active Mother Name Dates Details Family history of diabetes m ellitus(V18.0, Z83.3) Status:Active Father Name Dates Details Family history of Flores's l larissa(495.0, J67.0) Status:Active Family history of heart fail ure(V17.49, Z82.49) Status:Active Sister Name Dates Details Family history of diabetes m ellitus(V18.0, Z83.3) Status:Active Family history of acute myoc ardial infarction(V17.3, Z82.49) Status:Active Brother Name Dates Details Family history of diabetes m ellitus(V18.0, Z83.3) Status:Active Mother Name Dates Details Family history of diabetes m ellitus(V18.0, Z83.3) Status:Active Father Name Dates Details Family history of Flores's l larissa(495.0, J67.0) Status:Active Family history of heart fail ure(V17.49, Z82.49) Status:Active Sister Name Dates Details Family history of diabetes m ellitus(V18.0, Z83.3) Status:Active Family history of acute myoc ardial infarction(V17.3, Z82.49) Status:Active Brother Name Dates Details Family history of diabetes m ellitus(V18.0, Z83.3) Status:Active Unknown Family Member Name Dates Details Family history of diabetes m ellitus: Mother, Sister, Brother(V18.0, Z83.3) Status:Active Flores's lung: Father Status:Active Family history of heart fail ure: Father(V17.49, Z82.49) Status:Active Family history of acute myoc ardial infarction: Sister(V17.3, Z82.49) Status:Active Unknown Family Member Name Dates Details Family history of acute myoc ardial infarction: Sister(V17.3, Z82.49) Status:Active Family history of heart fail ure: Father(V17.49, Z82.49) Status:Active Flores's lung: Father Status:Active Family history of diabetes m ellitus: Mother, Sister, Brother(V18.0, Z83.3) Status:Active Unknown Family Member Name Dates Details Family history of diabetes m ellitus: Mother, Sister, Brother(V18.0, Z83.3) Status:Active Flores's lung: Father Status:Active Family history of heart fail ure: Father(V17.49, Z82.49) Status:Active Family history of acute myoc ardial infarction: Sister(V17.3, Z82.49) Status:Active Unknown Family Member Name Dates Details Family history of diabetes m ellitus: Mother, Sister, Brother(V18.0, Z83.3) Status:Active Flores's lung: Father Status:Active Family history of heart fail ure: Father(V17.49, Z82.49) Status:Active Family history of acute myoc ardial infarction: Sister(V17.3, Z82.49) Status:Active Unknown Family Member Name Dates Details Family history of diabetes m ellitus: Mother, Sister, Brother(V18.0, Z83.3) Status:Active Flores's lung: Father Status:Active Family history of heart fail ure: Father(V17.49, Z82.49) Status:Active Family history of acute myoc ardial infarction: Sister(V17.3, Z82.49) Status:Active Unknown Family Member Name Dates Details Family history of diabetes m ellitus: Mother, Sister, Brother(V18.0, Z83.3) Status:Active Flores's lung: Father Status:Active Family history of heart fail ure: Father(V17.49, Z82.49) Status:Active Family history of acute myoc ardial infarction: Sister(V17.3, Z82.49) Status:Active Unknown Family Member Name Dates Details Family history of diabetes m ellitus: Mother, Sister, Brother(V18.0, Z83.3) Status:Active Flores's lung: Father Status:Active Family history of heart fail ure: Father(V17.49, Z82.49) Status:Active Family history of acute myoc ardial infarction: Sister(V17.3, Z82.49) Status:Active Unknown Family Member Name Dates Details Family history of diabetes m ellitus: Mother, Sister, Brother(V18.0, Z83.3) Status:Active Flores's lung: Father Status:Active Family history of heart fail ure: Father(V17.49, Z82.49) Status:Active Family history of acute myoc ardial infarction: Sister(V17.3, Z82.49) Status:Active Advance Directives No Advanced Directives Records FoundDocuments on File Type Date Recorded 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 Advance Directives and Living Will Documents on File Type Date Recorded 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 Reason for Referral Specialty Diagnoses / Procedures Referred By Contac t Referred To Contact Radiology Diagnoses Abdominal bloating Procedures US abdomen complete Eben Vo MD [address] [place] [address] Referral ID Status Reason Start Date Expiration Date Visits Requested Visits Authorized [id number] Authorized Perform Procedure 3 01/16/2024 1 1 Specialty Diagnoses / Procedures Referred By Contac t Referred To Contact Radiology Diagnoses Abdominal bloating Procedures NM hepatobiliary w cholecystokinin Eben Vo MD [address] [place] [address] Referral ID Status Reason Start Date Expiration Date Visits Requested Visits Authorized [id number] Pending Review Perform Procedure 3 01/31/2024 3 3 Additional Source Comments (unrecognized sect ion and content) No Status Records FoundNo Status Records FoundNo Status Records FoundNo Status Records FoundNo Status Records FoundNo Status Records FoundNo Status Records FoundNo Status Records FoundNo Status Records FoundNo Status Records Found INFORMATION SOURCE (unrecogn ized section and content) DATE CREATED AUTHOR AUTHOR'S ORGANIZ ATION 03/09/2021 [facility] DATE CREATED AUTHOR [facility] AUTHOR AUTHOR'S ORGANIZ ATION 09/25/2021 [facility] DATE CREATED AUTHOR AUTHOR'S ORGANIZ ATION 05/18/2022 [facility] DATE CREATED AUTHOR AUTHOR'S ORGANIZ ATION 10/20/2022 [facility] DATE CREATED AUTHOR AUTHOR'S ORGANIZ ATION 11/02/2022 [facility] DATE CREATED AUTHOR AUTHOR'S ORGANIZ ATION 01/19/2023 [facility] DATE CREATED AUTHOR AUTHOR'S ORGANIZ ATION 02/13/2023 [facility] DATE CREATED AUTHOR AUTHOR'S ORGANIZ ATION 02/16/2023 [facility] <item><item> Privacy Markings (unrecogniz ed section and content) Section Author: Brandi Altamirano PROHIBITION ON REDISCLOSURE OF CONFIDENTIAL INFORMATION This notice accompanies a disclosure of information concerning a client made to you with the consent of such client. Section Author: Brandi Altamirano PROHIBITION ON REDISCLOSURE OF CONFIDENTIAL INFORMATION This notice accompanies a disclosure of information concerning a client made to you with the consent of such client. Care Teams (unrecognized sec tion and content) Training And Quality Manager Relationship Specialty Start Date End Date Eben Vo MD [address] [place] [address] PCP - General Family Medicine 07/15/17 Training And Quality Manager Relationship Specialty Start Date End Date Eben Vo MD [address] [place] [address] PCP - General Family Medicine 07/15/17 Training And Quality Manager Relationship Specialty Start Date End Date Eben Vo MD [address] [place] [address] PCP - General Family Medicine 07/15/17 Training And Quality Manager Relationship Specialty Start Date End Date Eben Vo MD [address] [place], [place] [id number] PCP - General Family Medicine 07/15/17 Training And Quality Manager Relationship Specialty Start Date End Date Eben Vo MD [address] [place], [place] [id number] PCP - General Family Medicine 07/15/17 Training And Quality Manager Relationship Specialty Start Date End Date Eben Vo MD [address] [place], [place] [id number] PCP - General Family Medicine 07/15/17 Training And Quality Manager Relationship Specialty Start Date End Date Eben Vo MD [address] [place], [place] [id number] PCP - General Family Medicine 07/15/17 Training And Quality Manager Relationship Specialty Start Date End Date Eben Vo MD [address] [place], [place] [id number] PCP - General Family Medicine 07/15/17 Training And Quality Manager Relationship Specialty Start Date End Date Eben Vo MD [address] [place], [place] [id number] PCP - General Family Medicine 07/15/17 Training And Quality Manager Relationship Specialty Start Date End Date Lavelle Boone MD [address] [place], [place] [id number] PCP - General Family Practice 01/03/20 Training And Quality Manager Relationship Specialty Start Date End Date Eben Vo MD [address] [place], [place] [id number] PCP - General Family Medicine 07/15/17 Training And Quality Manager Relationship Specialty Start Date End Date Eben Vo MD [address] [place] [address] PCP - General Family Medicine 07/15/17 Training And Quality Manager Relationship Specialty Start Date End Date Eben Vo MD [address] [place] [address] PCP - General Family Medicine 07/15/17 Training And Quality Manager Relationship Specialty Start Date End Date Lavelle Boone MD [address] [place] [address] PCP - Aet Medicare Advantage PCP 02/17/21 Training And Quality Manager Relationship Specialty Start Date End Date Eben Vo MD [address] [place], [place] [id number] PCP - General Family Medicine 07/15/17 Training And Quality Manager Relationship Specialty Start Date End Date Eben Vo MD [address] [place], [place] [id number] PCP - General Family Medicine 07/15/17 Training And Quality Manager Relationship Specialty Start Date End Date Lavelle Boone MD PCP - Aet[employer] Medicare Advantage PCP 02/17/21 Eben Vo MD [address] [place] [address] PCP - General 10/15/22 Training And Quality Manager Relationship Specialty Start Date End Date Lavelle Boone MD [address] [place] [address] PCP - Aet[employer] Medicare Advantage PCP 02/17/21 Eben Vo MD [address] [place] [address] PCP - General 10/15/22 Lucille Gerard boat captainMental Health Unit Lead Psychologist 12/05/22 Training And Quality Manager Relationship Specialty Start Date End Date Lavelle Boone MD [address] [place] [address] PCP - A[employer] Medicare Advantage PCP 02/17/21 Eben Vo MD [address] [place] [address] PCP - General 10/15/22 Lucille Gerard boat captainMental Health Unit Lead Psychologist 12/05/22 Training And Quality Manager Relationship Specialty Start Date End Date Lavelle Boone MD [address] [place] [address] PCP - A[employer] Medicare Advantage PCP 02/17/21 Eben Vo MD [address] [place] [address] PCP - General 10/15/22 Lucille Gerard boat captainMental Health Unit Lead Psychologist 12/05/22 Training And Quality Manager Relationship Specialty Start Date End Date Lavelle Boone MD [address] [place] [id number] PCP - Aet[employer] Medicare Advantage PCP 02/17/21 Eben Vo MD [address] [place] [id number] PCP - General 10/15/22 Lucille Gerard, boat captainMental Health Unit Lead Psychologist 12/05/22 Training And Quality Manager Relationship Specialty Start Date End Date Lavelle Boone MD [address] [place] [id number] PCP - [employer] Medicare Advantage PCP 02/17/21 Eben Vo MD [address] [facility] [place] [phone] PCP - General 10/15/22 Lucille Gearrd, boat captainMental Health Unit Lead Psychologist 12/05/22 Reason for Visit (unrecogniz ed section and content) Reason Comments Follow-up Follow up post truam atic arthritis of right foot. Medication Refill Patient would like r efill sent [facility]. Reason Comments Follow-up Nail care and callus care Reason Comments Pre-op Exam Patient is here for a history and physical for excision of bone spur right 5th metatarsal. Patient has questions regarding the surgery. Reason Comments Post-op pOST OP RIGHT FOOT. eXCISION OF 5TH METATARSAL BONE SPUR. Currently on antibiotic. Took a percocet today. Reason Comments Post-op R bone spur excision - pt stepped out of his patio door on Friday and did not get his foot all of the way out on the step and he felt a pulling in the R foot arch- pt was wearing his boot - L foot where bone spur was removed is callused over and painful Reason Comments Follow-up R foot posterior tib ial tendonitis - pt doing better Reason Comments Follow-up Post R foot bone spu r excision pain and tenderness in ankle sometimes - L foot wart - still very painful Reason Comments Follow-up Follow up plantar wa rt on left foot. States it is doing better and doesn't bother him. Reason Comments Patient Left Without Being Seen Specialty Diagnoses / Procedures Referred By Contact Referred To Contact Ophthalmology / OPHTHALMOLOGY Diagnoses Secondary cataract secondary cataract Procedures POST-CATARACT LASER SURGERY [facility] [address] Raul Rivera MD [address] [place] [address] Raul Rivera MD [address] [place] [id number] Referral ID Status Reason Start Date Expiration Date Visits Re quested Visits Authorized [id number] Closed 07/11/2021 02/16/2022 1 1 Reason Comments Plantar Warts Right foot Reason Comments Foot Problem Pt states right foot possible wart on bottom. Pt has questions about foot he had surgery on years ago. Reason Comments Follow-up Follow up warts and fungal nail on right foot. Pt would also like nail care. Pt states he still feels wart when walking some. Reason Comments Foot Problem L foot callus x 3 wk s - pt has a lump on the lateral side of the foot that has a callus which has become painful - no trauma or injury Reason Comments Follow-up Follow up left 5th m et bone spur and callus. Reason Comments GERD Reason Comments Procedure Patient is here for callus/tissue removal from foot. Reason Comments Post-op Post op removal of c allus. Reason Comments Recheck GERD, SOB Reason Comments Hospital Follow-up Specialty Diagnoses / Procedures Referred By Holger thornton Referred To Contact Primary Care Diagnoses Longstanding persistent atrial fibrillation ([facility]) Dyspepsia Procedures Follow Up In Primary Care - Established Eben Vo MD [address] [place] [address] Referral ID Status Reason Start Date Expiration Date V isits Requested Visits Authorized [id number] Authorized 11/01/2022 04/30/2023 1 1 Reason Comments Dyspepsia Has had some heart i ssues since the beginning of symptoms, had heart cath and cardioversion. Patient is taking omeprazole. Had cardioversion a week ago and symptoms of indigestion is better. Patient reports lots of danielle such as belching and flatulence Specialty Diagnoses / Procedures Referred By Holger thornton Referred To Contact Radiology Diagnoses Abdominal bloating Procedures US abdomen complete Eben Vo MD [address] [place] [id number] Referral ID Status Reason Start Date Expiration Date Visits Requested Visits Authorized [id number] Authorized Perform Procedure 3 01/16/2024 1 1 Specialty Diagnoses / Procedures Referred By Contac t Referred To Contact Radiology Diagnoses Abdominal bloating Procedures NM hepatobiliary w cholecystokinin Eben Vo MD [address] [place] [id number] Referral ID Status Reason Start Date Expiration Date Visits Requested Visits Authorized [id number] Pending Review Perform Procedure 3 01/31/2024 3 3 Source Comments (unrecognize d section and content) In the event this informatio n is protected by the Federal Confidentiality of Alcohol and Drug Abuse Patient Records regulations: The Federal rules restrict any use of the information to criminally investigate or prosecute any alcohol or drug abuse patient.[facility] FOR RECORDS PERTAINING TO PATIENTS WHO ARE OR HAVE BEEN ENROLLED IN A CHEMICAL DEPENDENCY/SUBSTANCEABUSE PROGRAM, SOME INFORMATION MAY BE OMITTED. This clinical summary was aggregated from multiple sources. Caution should be exercised in using it in the provision of clinical care. This summary normalizes information from multiple sources, and as a consequence, information in this document may materially change the coding, format and clinical context of patient data. In addition, data may be omitted in some cases. CLINICAL DECISIONS SHOULD BE BASED ON THE PRIMARY CLINICAL RECORDS. [facility]. provides no warranty or guarantee of the accuracy or completeness of information in this document.
== END | disposition home or self-care (01) ==
LOC: CVS 10:48
PROVIDERS: PCP Family Medicine; Referring Provider Nurse Practitioner Gerontology; Visit Provider Nurse Practitioner Gerontology
DX: I42.8 Other cardiomyopathies (principal)
CPT/HCPCS: 93308

== ENCOUNTER → 2023-03-06 | Outpatient (CLI) | payer MEDICARE, SELFPAY ==
--- OUTSIDE RECORDS SUMMARY | 2023-03-06 12:49 | XMS RPT_ITS | CCD ---
Author Name Unknown Address [address] [place] [address] Organization [facility] Care Team Providers Care Stock And Station Agent Name Role Phone Eben Vo Unavailable Eben Vo Attending Unavailable Stencel, Eben Primary [...] MD Primary Care Provider Eben Vo Unavailable [phone] Unavailable Unavailable MEL PAUL Admitting Unavaila ble [...] Cazares Admitting Unavailable Lavelle Boone MD Unavailable [phone] EBEN VO Primary Care Unavailable Lavelle Boone MD Unavailable Unavailab le Eben Vo MD Primary Care Provider [phone] MEL PAUL Referring Unavaila ble PAUL, MEL [...] Primary Care Unavailab Lavelle Yang MD Unavailable [phone] Moustapha BANUELOS, Lucille Unavailable Unavailable LAVELLE BOONE Attending Unavailable LISETTECELEBEN Primary Care Unavailable STENCEL, EBEN Mathews Attending Unavailable STENCEL, EBEN Mathews Primary Care Unavailable STENCELEBEN Attending Unavailable STENCELEBEN Referring Unavailable STENCELEBEN Primary Care Unavailable CHRIS CAZARES Attending Unavailable LISETTECELEBEN Primary Care Unavailable LAVELLE BOONE Primary Care Unavaila ble RIVERARAUL Referring Unavailable RIVERARAUL KNUTSON Attending Unavailable STENCELEBEN Referring Unavailable STENCEL, EBEN Mathews Primary Care Unavailable CHRIS CAZARES Referring Unavailable STENCELEBEN Primary Care Unavailable Allergies Allergy Classification Reported Allergen(s) Allergy Type Date of Onset Reaction(s) Facility Sulfonamides (antibiotic) (1 source) Sulfonamides (Antibiotic) Drug Allergy Other [facility] Medications Current Medications Medication Drug [...] callosities] Episodic Other skin disorders (1 source) Parsons - lesion ; Translations: [Corns and callosities] [...] 172.7 cm Chris Cazares DO Work Phone: [facility] 01-16-2023 14:42-0500 Body mass index (BMI) [Ratio] 25.03 kg/m2 Chris Thomae DO Work Phone: [facility] 01-16-2023 14:42-0500 Body weight 74.66 kg Chris Thomae DO Work Phone: [facility] 01-16-2023 14:42-0500 Diastolic blood pressure 60 mm[Hg] Chris Thomae DO Work Phone: [facility] 01-16-2023 14:42-0500 Systolic blood pressure 100 mm[Hg] Chris Thomae DO Work Phone: [facility] 12-13-2022 09:09-0400 Body height 172.7 cm Eben Vo MD Work Phone: [facility] 12-13-2022 09:09-0400 Body mass index (BMI) [Ratio] 25.7 kg/m2 Eben Vo MD Work Phone: [facility] 12-13-2022 09:09-0400 Body weight 76.66 kg Eben Vo MD Work Phone: [facility] 12-13-2022 09:09-0400 Diastolic blood pressure 62 mm[Hg] Eben Vo MD Work Phone: [facility] 12-13-2022 09:09-0400 Heart rate 96 /min Eben Vo MD Work Phone: [facility] 12-13-2022 09:09-0400 SaO2% (BldA) [Mass fraction] 94 % Eben Vo MD Work Phone: [facility] 12-13-2022 09:09-0400 Systolic blood pressure 106 mm[Hg] Eben Vo MD Work Phone: [facility] 11-01-2022 08:04-0400 Body height 172.7 cm Eben Vo MD Work Phone: [phone] [place] [address] 11-01-2022 08:04-0400 Body mass index (BMI) [Ratio] 24.77 kg/m2 Eben Vo MD Work Phone: [facility] 11-01-2022 08:04-0400 Body weight 73.89 kg Eben Vo MD Work Phone: [facility] 11-01-2022 08:04-0400 Diastolic blood pressure 72 mm[Hg] Eben Vo MD Work Phone: [facility] 11-01-2022 08:04-0400 Heart rate 58 /min Eben Vo MD Work Phone: [facility] 11-01-2022 08:04-0400 SaO2% (BldA) [Mass fraction] 95 % Eben Vo MD Work Phone: [facility] 11-01-2022 08:04-0400 Systolic blood pressure 120 mm[Hg] Eben Vo MD Work Phone: [facility] 10-31-2022 10:11-0400 Body temperature 98.29 [degF] Mel Paul DPM Work Phone: [facility] 10-31-2022 10:11-0400 Diastolic blood pressure 66 mm[Hg] Mel Paul DPM Work Phone: [facility] 10-31-2022 10:11-0400 Heart rate 77 /min Mel Paul DPM Work Phone: [facility] 10-31-2022 10:11-0400 Systolic blood pressure 118 mm[Hg] Mel Paul DPM Work Phone: [facility] 10-17-2022 08:01-0400 Body temperature 97.5 [degF] Melheidi ColemanPaul DPM Work Phone: [facility] 10-17-2022 08:01-0400 Diastolic blood pressure 77 mm[Hg] Mel Paul DPM Work Phone: [facility] 10-17-2022 08:01-0400 Heart rate 77 /min Mel Paul DPM Work Phone: [facility] 10-17-2022 08:01-0400 Systolic blood pressure 116 mm[Hg] Mel Paul DPM Work Phone: [facility] 10-15-2022 11:27-0400 Body height 172.7 cm Lavelle Boone MD Work Phone: [facility] 10-15-2022 11:27-0400 Body mass index (BMI) [Ratio] 24.57 kg/m2 Lavelle Boone MD Work Phone: [facility] 10-15-2022 11:27-0400 Body weight 73.3 kg Lavelle Boone MD Work Phone: [facility] 10-15-2022 11:27-0400 Diastolic blood pressure 64 mm[Hg] Lavelle Boone MD Work Phone: [facility] 10-15-2022 11:27-0400 Heart rate 82 /min Lavelle Boone MD Work Phone: [facility] 10-15-2022 11:27-0400 SaO2% (BldA) [Mass fraction] 95 % Lavelle Boone MD Work Phone: [facility] 10-15-2022 11:27-0400 Systolic blood pressure 108 mm[Hg] Lavelle Boone MD Work Phone: [facility] 08-01-2022 08:08-0400 Body temperature 98.4 [degF] Mel Paul DPM Work Phone: [facility] 08-01-2022 08:08-0400 Diastolic blood pressure 68 mm[Hg] Mel Paul DPM Work Phone: [facility] 08-01-2022 08:08-0400 Heart rate 55 /min Mel Paul DPM Work Phone: [facility] 08-01-2022 08:08-0400 Systolic blood pressure 112 mm[Hg] Mel Paul DPM Work Phone: [facility] 05-09-2022 11:00-0400 Body temperature 98.6 [degF] Mel Paul DPM Work Phone: [facility] 05-09-2022 11:00-0400 Diastolic blood pressure 62 mm[Hg] Mel Paul DPM Work Phone: [facility] 05-09-2022 11:00-0400 Heart rate 52 /min Mel Paul DPM Work Phone: [facility] 05-09-2022 11:00-0400 Systolic blood pressure 114 mm[Hg] Mel Paul DPM Work Phone: [facility] 03-08-2022 08:58-0500 Body height 172.72 cm Eben Vo Work Phone: [facility] Work Phone: 03-08-2022 08:58-0500 Body mass index (BMI) [Ratio] 24.34 kg/m2 Eben Vo Work Phone: [facility] Work Phone: 03-08-2022 08:58-0500 Body surface area Derived from formula 1.86 m2 Eben Vo Work Phone: [facility] Work Phone: 03-08-2022 08:58-0500 Body weight 72.6 kg Eben Vo Work Phone: [facility] Work Phone: 03-08-2022 08:58-0500 Diastolic blood pressure 80 mm[Hg] Eben Vo Work Phone: [facility] Work Phone: 03-08-2022 08:58-0500 Heart rate 56 /min Eben Vo Work Phone: [facility] Work Phone: 03-08-2022 08:58-0500 SaO2% (BldA) [Mass fraction] 97 % Eben Vo Work Phone: [facility] Work Phone: 03-08-2022 08:58-0500 Systolic blood pressure 140 mm[Hg] Eben Vo Work Phone: [facility] Work Phone: 01-31-2022 08:29-0500 Body temperature 98.8 [degF] Mel Paul DPM Work Phone: [facility] 01-31-2022 08:29-0500 Diastolic blood pressure 75 mm[Hg] Mel Paul DPM Work Phone: [facility] 01-31-2022 08:29-0500 Heart rate 61 /min Mel Paul DPM Work Phone: [facility] 01-31-2022 08:29-0500 Systolic blood pressure 133 mm[Hg] Mel Paul DPM Work Phone: [facility] 01-03-2022 08:33-0500 Body temperature 98.49 [degF] Mel Paul DPM Work Phone: [facility] 01-03-2022 08:33-0500 Diastolic blood pressure 67 mm[Hg] Mel Paul DPM Work Phone: [facility] 01-03-2022 08:33-0500 Heart rate 48 /min Mel Paul DPM Work Phone: [facility] 01-03-2022 08:33-0500 Systolic blood pressure 121 mm[Hg] Mel Paul DPM Work Phone: [facility] 08-02-2021 08:46-0400 Body temperature 98.01 [degF] Mel Paul DPM Work Phone: [facility] 08-02-2021 08:46-0400 Diastolic blood pressure 64 mm[Hg] Mel Paul DPM Work Phone: [facility] 08-02-2021 08:46-0400 Heart rate 57 /min Mel Paul DPM Work Phone: [facility] 08-02-2021 08:46-0400 Systolic blood pressure 107 mm[Hg] Mel Paul DPM Work Phone: [facility] 07-12-2021 08:15-0400 Body temperature 97.9 [degF] Mel Paul DPM Work Phone: [facility] 07-12-2021 08:15-0400 Diastolic blood pressure 60 mm[Hg] Mel Paul DPM Work Phone: [facility] 07-12-2021 08:15-0400 Heart rate 44 /min Mel Paul DPM Work Phone: [facility] 07-12-2021 08:15-0400 Systolic blood pressure 108 mm[Hg] Mel Paul DPM Work Phone: [facility] 06-21-2021 08:18-0400 Body temperature 98.01 [degF] Mel Raphaelman DPM Work Phone: [facility] 06-21-2021 08:18-0400 Diastolic blood pressure 70 mm[Hg] Mel Colemanmerman DPM Work Phone: [facility] 06-21-2021 08:18-0400 Heart rate 77 /min Mel Raphaelman DPM Work Phone: [facility] 06-21-2021 08:18-0400 Systolic blood pressure 113 mm[Hg] Mel Raphaelman DPM Work Phone: [facility] 2021 08:45-0400 Body temperature 97.7 [degF] Mel Raphaelman DPM Work Phone: [facility] 2021 08:45-0400 Diastolic blood pressure 80 mm[Hg] Mel Raphaelman DPM Work Phone: [facility] 2021 08:45-0400 Heart rate 67 /min Mel Raphaelman DPM Work Phone: [facility] 2021 08:45-0400 Systolic blood pressure 128 mm[Hg] Mel Raphaelman DPM Work Phone: [facility] 05-10-2021 08:36-0400 Diastolic blood pressure 74 mm[Hg] Mel Raphaelman DPM Work Phone: [facility] 05-10-2021 08:36-0400 Heart rate 50 /min Mel Raphaelman DPM Work Phone: [facility] 05-10-2021 08:36-0400 Systolic blood pressure 123 mm[Hg] Mel Raphaelman DPM Work Phone: [facility] 05-10-2021 08:31-0400 Body temperature 98.1 [degF] Mel Paul DPM Work Phone: [facility] 04-19-2021 14:28-0500 Body temperature 98.2 [degF] Mel Colemanmerman DPM Work Phone: [facility] 04-19-2021 14:28-0500 Diastolic blood pressure 68 mm[Hg] Mel Colemanmerman DPM Work Phone: [facility] 04-19-2021 14:28-0500 Heart rate 69 /min Mel Colemanmerman DPM Work Phone: [facility] 04-19-2021 14:28-0500 Systolic blood pressure 132 mm[Hg] Mel Colemanmerman DPM Work Phone: [facility] 04-05-2021 08:29-0500 Body temperature 97.9 [degF] Mel Colemanmerman DPM Work Phone: [facility] 04-05-2021 08:29-0500 Diastolic blood pressure 69 mm[Hg] Mel Colemanmerman DPM Work Phone: [facility] 04-05-2021 08:29-0500 Heart rate 58 /min Mel Paul DPM Work Phone: [facility] 04-05-2021 08:29-0500 Systolic blood pressure 117 mm[Hg] Mel Raphaelman DPM Work Phone: [facility] 03-08-2021 08:26-0500 Body height 172.72 cm Eben Robertscel Work Phone: [facility] Work Phone: 03-08-2021 08:26-0500 Body mass index (BMI) [Ratio] 25.26 kg/m2 Eben Robertscel Work Phone: [facility] Work Phone: 03-08-2021 08:26-0500 Body surface area Derived from formula 1.89 m2 Eben Robertscel Work Phone: [facility] Work Phone: 03-08-2021 08:26-0500 Body temperature 97.8 [degF] Eben Robertscel Work Phone: [facility] Work Phone: 03-08-2021 08:26-0500 Body weight 75.36 kg Eben Robertscel Work Phone: [facility] Work Phone: 03-08-2021 08:26-0500 Diastolic blood pressure 64 mm[Hg] Eben Robertscel Work Phone: [facility] Work Phone: 03-08-2021 08:26-0500 Heart rate 60 /min Eben Vo Work Phone: [facility] Work Phone: 03-08-2021 08:26-0500 SaO2% (BldA) [Mass fraction] 98 % Eben Vo Work Phone: [facility] Work Phone: 03-08-2021 08:26-0500 Systolic blood pressure 112 mm[Hg] Eben Vo Work Phone: [facility] Work Phone: 02-22-2021 07:59-0500 Body temperature 98.01 [degF] Mel Paul DPM Work Phone: [facility] 02-22-2021 07:59-0500 Diastolic blood pressure 70 mm[Hg] Mel Paul DPM Work Phone: [facility] 02-22-2021 07:59-0500 Heart rate 67 /min Mel Paul DPM Work Phone: [facility] 02-22-2021 07:59-0500 Systolic blood pressure 134 mm[Hg] Mel Paul DPM Work Phone: [facility] 01-18-2021 18:06-0500 Body height 172.7 cm Eben Stencel Other Phone: [facility] 01-18-2021 18:06-0500 Body temperature 98.24 [degF] Eben Robertscel Other Phone: [facility] 01-18-2021 18:06-0500 Body weight 69.1 kg Eben Robertscel Other Phone: [facility] 01-18-2021 18:06-0500 Diastolic blood pressure 76 mm[Hg] Eben Robertscel Other Phone: [facility] 01-18-2021 18:06-0500 Heart rate 67 /min Eben Robertscel Other Phone: [facility] 01-18-2021 18:06-0500 Respiratory rate 18 /min Eben Robertscel Other Phone: [facility] 01-18-2021 18:06-0500 SaO2% (BldA) [Mass fraction] 95 % Eben Robertscel Other Phone: [facility] 01-18-2021 18:06-0500 Systolic blood pressure 152 mm[Hg] Eben Robertscel Other Phone: [facility] 12-21-2020 08:16-0400 Body temperature 98.1 [degF] Mel Paul DPM Work Phone: [facility] 12-21-2020 08:16-0400 Diastolic blood pressure 68 mm[Hg] Mel Paul DPM Work Phone: [facility] 12-21-2020 08:16-0400 Heart rate 60 /min Mel Paul DPM Work Phone: [facility] 12-21-2020 08:16-0400 Systolic blood pressure 120 mm[Hg] Mel Paul DPM Work Phone: [facility] 11-23-2020 09:04-0400 Body temperature 98.4 [degF] Mel Paul DPM Work Phone: [facility] 11-23-2020 09:04-0400 Diastolic blood pressure 56 mm[Hg] Mel Paul DPM Work Phone: [facility] 11-23-2020 09:04-0400 Heart rate 65 /min Mel Paul DPM Work Phone: [facility] 11-23-2020 09:04-0400 Systolic blood pressure 118 mm[Hg] Mel Beverly DPM Work Phone: [facility] 07-19-2020 23:35-0400 Diastolic blood pressure 70 mm[Hg] Eben Stencel Other Phone: [facility] 07-19-2020 23:35-0400 Heart rate 62 /min Eben Stencel Other Phone: [facility] 07-19-2020 23:35-0400 Respiratory rate 16 /min Eben Stencel Other Phone: [facility] 07-19-2020 23:35-0400 SaO2% (BldA) [Mass fraction] 97 % Eben Stencel Other Phone: [facility] 07-19-2020 23:35-0400 Systolic blood pressure 106 mm[Hg] Eben Stencel Other Phone: [facility] 07-19-2020 18:48-0400 Body height 175.2 cm Eben Stencel Other Phone: [facility] 07-19-2020 18:48-0400 Body temperature 97.88 [degF] Eben Stencel Other Phone: [facility] 07-19-2020 18:48-0400 Body weight 69.1 kg Eben Stencel Other Phone: [facility] 02-18-2019 17:04-0500 BMI (Body Mass Index) 26.03 kg/m2 Lavelle Boone [facility] Work Phone: 02-18-2019 17:04-0500 Body Temperature 97.3 [degF] Andriymary ellen Jadiel [facility] Work Phone: 02-18-2019 17:04-0500 Body weight 75.39 kg Lavelle Jadiel [facility] Work Phone: 02-18-2019 17:04-0500 BP Diastolic 62 mm[Hg] Lavelle Boone [facility] Work Phone: 02-18-2019 17:04-0500 BP Systolic 106 mm[Hg] Lavelle Boone [facility] Work Phone: 02-18-2019 17:04-0500 BSA (Body Surface Area) 1.87 m2 Lavelle Boone -[facility] Work Phone: 02-18-2019 17:04-0500 Height 170.18 cm Lavelle Boone [facility] Work Phone: 02-18-2019 17:04-0500 Pulse (Heart Rate) 46 /min Lavelle Boone -[facility] Work Phone: 02-18-2019 17:04-0500 Pulse Oximetry 97 % Lavelle Boone [facility] Work Phone: 01-08-2019 10:09-0500 BMI (Body Mass Index) 25.8 kg/m2 Lavelle Boone [facility] Work Phone: 01-08-2019 10:09-0500 Body weight 76.98 kg Lavelle Boone [facility] Work Phone: 01-08-2019 10:09-0500 BP Diastolic 60 mm[Hg] Lavelle Boone [facility] Work Phone: 01-08-2019 10:09-0500 BP Systolic 106 mm[Hg] Lavelle Boone [facility] Work Phone: 01-08-2019 10:09-0500 BSA (Body Surface Area) 1.91 m2 Lavelle Boone [facility] Work Phone: 01-08-2019 10:090500 Height 172.72 cm Lavelle Boone [facility] Work Phone: 01-08-2019 10:09-0500 Pulse (Heart Rate) 48 /min Lavelle Boone [facility] Work Phone: Encounters Encounter Date Encounter Type Care Provider Facility Start: 02-12-2023 End: 02-13-2023 [facility] Start: 02-12-2023 End: 02-12-2023 Subsequent hospital visit by physician Homer Patterson 1 [facility] Procedures Date Procedure Procedure Detail [...] lic 2000 panel - Serum or Plasma BEEN VO Start: 10-15-2022 SEDIMENTATION RATE, AUTOMATED EBEN VO Start: 02-21-2022 Lipid 1996 panel - S ayesha or Plasma Lavelle Boone MD Work Phone: Start: 09-27-2021 Colonoscopy Mel méndez DPM Work Phone: Start: 09-27-2021 Colonoscopy Eben Vo Work Phone: Plan of Treatment Date Care Activity Detail Author Start: 09-28-2031 Screening for malignant neoplasm of colon [facility] Start: 09-26-2031 Screening for malignant neoplasm of colon [facility] Start: 04-29-2027 DTaP/Tdap/Td Vaccines (2 - Td or Tdap) DTaP/Tdap/Td Vaccines (2 - Td or Tdap) [facility] Start: 04-29-2027 Tetanus vaccination Tetanus: Every 10yrs [facility] Start: 02-21-2027 Lipid panel Lipid Panel [facility] Start: 01-25-2024 Creatinine measurement Creatinine Level [facility] Start: 01-25-2024 Potassium measurement Potassium Level [facility] Start: 11-28-2023 Thyroid stimulating hormone measurement TSH Level [facility] Start: 11-21-[address] [facility] Start: 03-20-2023 End: 03-20-2023 Patient encounter procedure 03/20/2023 9:45 AM EST Office Visit [facility] [address] [phone] Chris Cazares, [address] [facility] [place] [address] [place] [address] [facility] Start: 03-18-2023 End: 03-18-2023 Patient encounter procedure 03/18/2023 9:00 AM EST Office Visit [facility] [address] [place] [id number] Eben Vo MD [address] [place] [address] [facility] Start: 03-11-2023 End: 03-11-2023 Patient encounter procedure [facility] Start: 03-09-2023 Medicare Annual Wellness Visit Medicare Annual Wellness Visit (AWV) [facility] Start: 01-17-2023 End: 01-17-2023 Patient encounter procedure 01/17/2023 1:00 PM EST Appointment [facility] [address] [place] [phone] [facility] Start: 01-16-2023 End: 01-16-2023 Patient encounter procedure 01/16/2023 2:30 PM EST Office Visit [facility] [address] [place] [id number] Chris Cazares, DO [address] [facility] [place] [address] [place] [id number] [facility] Start: 01-16-2023 End: 01-17-2024 US Abdomen US abdomen complete Imaging Routine Abdominal bloating Expected: 01/16/2023, Expires: 01/17/2024 [facility] Service Area Work Phone: Immunizations Immunization Date Immunization Notes Care Provider Fa cili 11-23-2021 Fluad Quadrivalent 0 .5 ML Intramuscular Prefilled Syringe Eben Vo Work Phone: [facility] Work Phone: Payers Date Payer Category Payer Medicare A[employer] MEDICARE A ETNA MEDICARE PPO [id number] 2021-Present [phone] [address] [place] [address] [facility] [id number] 2017 Private Health Insurance 2017 Medicare [place] (PPO) [id number] 2017-Present [phone] [address] [place] [address] [id number] 2017 Medicare [id number] 2017 Medicare [id number] 2016 Unknown 1950 Unknown [id number] 2.16.840.1.642365.3.579.2.7 17 1951 Unknown [id number] 2.16.840.1.461692.3.579.2.7 17 1951 Unknown [id number] 2.16.840.1.476801.3.579.2.9 03 1951 Unknown [id number] 2.16.840.1.149856.3.579.2.9 03 1951 Unknown [id number] 2.16.840.1.620007.3.579.2.1 069 1950 Unknown [id number] 2.16.840.1.500066.3.579.2.1 245 1951 Unknown [id number] 2.16.840.1.685333.3.579.2.9 03 1951 Unknown [id number] 2.16.840.1.583874.3.579.2.9 03 1951 Unknown [id number] 2.16.840.1.187395.3.579.2.9 03 1951 Unknown [id number] 2.16.840.1.801044.3.579.2.9 03 1951 Unknown [id number] 2.16.840.1.212826.3.579.2.9 03 1950 Unknown [id number] 2.16.840.1.210599.3.579.2.9 03 1951 Unknown [id number] 2.16.840.1.340596.3.579.2.9 03 1951 Unknown [id number] 2.16.840.1.512367.3.579.2.9 03 1951 Unknown [id number] 2.16.840.1.768714.3.579.2.9 03 1951 Unknown [id number] 2.16.840.1.040749.3.579.2.9 03 1951 Unknown [id number] 2.16.840.1.515377.3.579.2.1 244 1951 Unknown [id number] 2.16.840.1.895316.3.579.2.1 244 1951 Unknown [id number] 2.16.840.1.283728.3.579.2.1 244 1951 Unknown [id number] 2.16.840.1.066355.3.579.2.1 244 1951 Unknown [id number] 2.16.840.1.604892.3.579.2.1 243 1950 Unknown [id number] 2.16.840.1.495257.3.579.2.1 243 Social History Date Type Detail Facility Start: 08-13-2017 Tobacco smoking status IAIS Unknown if ever smoked [facility] Start: 1950 Sex Assigned At Not on file [facility] Start: 11-20-2020 End: 12-13-2022 Tobacco smoking status IAIS Never smoked tobacco [facility] Start: 11-20-2020 Tobacco use and exposure Smokeless tobacco non-user [facility] Start: 11-20-2020 End: 12-13-2022 Alcohol intake Current drinker of alcohol (finding) [facility] Start: 11-20-2020 History SDOH Alcohol Comment occasionally [facility] Start: 04-01-2021 End: 02-12-2023 Exposure to SARS-CoV-2 (event) Not sure [facility] Start: 04-05-2021 End: 12-13-2022 Consumes alcohol Consumes alcohol [facility] Work Phone: Start: 11-20-2020 End: 10-15-2022 Tobacco use and exposure User of smokeless tobacco [facility] Start: 03-28-2021 End: 07-12-2021 Tobacco Comment does use chew tobacco ( 1 pouch every 2 to 3 weeks ) [facility] Start: 01-22-2021 Alcohol intake Ex-drinker (finding) [facility] Start: 08-01-2022 End: 12-13-2022 Tobacco use panel [facility] History of tobacco use Passive smoker [facility] Work Phone: History of tobacco use Chews Tobacco [facility] Work Phone: Start: 12-13-2022 Tobacco use and exposure Former smokeless tobacco user [facility] Work Phone: Start: 12-13-2022 Alcohol Comment occasional [address] [facility] Work Phone: NEGATED: Highlighted row - - [facility] Work Phone: Medical Equipment Procedure Code Equipment Code Equipment Origin al Text Equipment Identifier Dates Lens, Intraocula r [id number] 12.0 Case [id number] Start: 01-20-2020 Functional Status Date Assessment Result Facility NEGATED: Highlighted row Functional performance Functional status health issues are not documented Disease [facility] Work Phone: Mental Status Date Assessment Result Facility NEGATED: Highlighted row Cognitive function [Interpretation] Cognitive status health issues are not documented [facility] Work Phone: Clinical Notes 02-28-2020 to 02-11-2023 Chris Cazares, DO - 01/16/2023 2:30 PM Yared Cazares, DO - 01/16/2023 2:30 PM Jakob Vo MD - 12/13/2022 9:00 AM Beatrice Vo MD - 11/01/2022 8:00 AM EDT Note Date & Type Note Facility 02-11-2023 Note HNO ID: [id number] Author: Raul Rivera MD Service: ? Author [...] diagnosis, and treatment options. Raul Rivera MD [facility] 01-16-2023 History of Presen t illness Narrative [...] results by telephone documented in this encounter [facility] Work Phone: 12-13-2022 History of Presen [...] Codes Dyspepsia R10.13 documented in this encounter [facility] Work Phone: 11-01-2022 History of Presen [...] rate control Review of Systems As per [facility] Objective BP 120/72 Pulse 58 Ht [...] if not 100% documented in this encounter [facility] Work Phone: 10-31-2022 History of Presen [...] C) (Infrared) Laboratory and Additional Data Reviewed: Reviewed:[id number]} XR Calcaneus Left 2+ Views (Standard) X-rays 2 views left heel: There is a slight varus tilt of the calcaneus. Patient has a decreased medial longitudinal arch documented in this encounter [facility] 10-17-2022 History of Presen t illness Narrative [...] C) (Infrared) Laboratory and Additional Data Reviewed: Reviewed:[id number]} XR Calcaneus Left 2+ Views (Standard) X-rays 2 views left heel: There is a slight varus tilt of the calcaneus. Patient has a decreased medial longitudinal arch documented in this encounter [facility] 10-15-2022 History of Presen t illness Narrative [...] mg EC tablet documented in this encounter [facility] Work Phone: 08-01-2022 History of Presen [...] C) (Infrared) Laboratory and Additional Data Reviewed: Reviewed:[id number]} XR Calcaneus Left 2+ Views (Standard) X-rays 2 views left heel: There is a slight varus tilt of the calcaneus. Patient has a decreased medial longitudinal arch documented in this encounter [facility] 05-09-2022 History of Presen t illness Narrative [...] C) (Infrared) Laboratory and Additional Data Reviewed: Reviewed:[id number]} XR Foot Right 3+ Views (Standard) X-rays [...] medial longitudinal arch documented in this encounter [facility] 01-31-2022 History of Presen t illness Narrative [...] lesion with pinpoint bleeders and pain on klzb-at-cqrm squeeze test on the plantar aspect of the right heel. 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 Vascular-DP and PT pulses are palpable bilateral feet. BP 133/75 (BP Location: Left arm, Patient Position: Sitting, BP Cuff Size: Adult) Pulse 61 Temp 98.8 F (37.1 C) (Infrared) Laboratory and Additional Data Reviewed: Reviewed:[id number]} XR Foot Right 3+ Views (Standard) X-rays [...] medial longitudinal arch documented in this encounter [facility] 01-03-2022 History of Presen t illness Narrative [...] foot with pinpoint bleeders and pain on mogr-fz-busy squeeze test consistent with verruca. 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 The lesions of the left foot have resolved. Neuro-intact bilateral feet Musculoskeletal-stiffness and swelling of the right ankle Vascular-DP and PT pulses are palpable bilateral feet BP 108/60 (BP Location: Right arm, Patient Position: Sitting, BP Cuff Size: Adult) Pulse (!) 44 Temp 97.9 F (36.6 C) (Infrared) Laboratory and Additional Data Reviewed: Reviewed:[id number]} XR Foot Right 3+ Views (Standard) X-rays [...] medial longitudinal arch documented in this encounter [facility] 06-21-2021 History of Presen t illness Narrative [...] Patient is in need of some new gjgo-lbr-cwoxuvh orthotics so I told him to go to [facility] for a new set. 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 OBJECTIVE: Physical Examination: Integument-there is a white papillomatous lesion with a pinpoint bleeders and pain on lrnn-st-pgzq squeeze test on the bottom of the [...] C) (Oral) Laboratory and Additional Data Reviewed: Reviewed:[id number]} XR Foot Right 3+ Views (Standard) X-rays [...] medial longitudinal arch documented in this encounter [facility] 05-10-2021 History of Presen t illness Narrative [...] C) (Oral) Laboratory and Additional Data Reviewed: Reviewed:[id number]} XR Foot Right 3+ Views (Standard) X-rays 3 views right foot: There is been excision of the fifth metatarsal base exostosis lateral plantarly. Patient's had past tarsometatarsal joint fusion documented in this encounter [facility] 04-19-2021 History of Presen t illness Narrative Patient: Chasity Sandra Date of : 1950 (70 y.o.) PCP: Eben oV MD Procedures ASSESSMENT/PLAN: Chasity Sandra 70 y.o. [...] C) (Oral) Laboratory and Additional Data Reviewed: Reviewed:[id number]} XR OR Foot Rt 2 Views Narrative: [...] Workstation ID: [id number] documented in this encounter [facility] 04-13-2021 Note Addended by: MEL PARKER on: 04/13/2021 07:40 AM Modules accepted: Orders [facility] 04-13-2021 Miscellaneous Notes Addended by: MEL PAUL on: 04/13/2021 07:40 AM Modules accepted: Orders documented in this encounter [facility] 04-05-2021 History of Presen t illness Narrative Podiatry Outpatient H&P 04/05/2021 Mel Paul DPM @[email or web address]@ Patient: Chasity Sandra Date of : 1950 (70 y.o.) [facility] ASSESSMENT/PLAN: Chasity Sandra 70 y.o. male with [...] 9:01 AM: Radiology documented in this encounter [facility] 04-05-2021 History of Presen t illness Narrative [...] 9:01 AM: Radiology documented in this encounter [facility] 02-22-2021 History of Presen t illness Narrative [...] C) (Oral) Laboratory and Additional Data Reviewed: Reviewed:[id number]} XR Foot Right 3+ Views (Standard) X-rays 3 views right foot. Patient has significant degenerative changes throughout the fourth and fifth metatarsal base cuboid joint. Patient has an inferior calcaneal heel spur and a decreased medial longitudinal arch. No signs of stress fracture. 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 I recommended [facility] for any new pairs. Continue with [...] C) (Infrared) Laboratory and Additional Data Reviewed: Reviewed:[id number]} XR Foot Right 3+ Views (Standard) X-rays 3 views right foot. Patient has significant degenerative changes throughout the fourth and fifth metatarsal base cuboid joint. Patient has an inferior calcaneal heel spur and a decreased medial longitudinal arch. No signs of stress fracture. documented in this encounter [facility] 11-23-2020 History of Presen t illness Narrative [...] C) (Infrared) Laboratory and Additional Data Reviewed: Reviewed:[id number]} XR Foot Right 3+ Views (Standard) X-rays 3 views right foot. Patient has significant degenerative changes throughout the fourth and fifth metatarsal base cuboid joint. Patient has an inferior calcaneal heel spur and a decreased medial longitudinal arch. No signs of stress fracture. documented in this encounter [facility] documented as of this encounter (statuses as of 07/25/2021) [facility] Diagnosis Post-traumatic arthritis of right foot- Primary Plantar fasciitis of right foot Onychomycosis of toenail [facility] Diagnosis Post-traumatic osteoarthritis of right foot- Primary Pes planovalgus Other congenital valgus deformity of feet Onychomycosis Dermatophytosis of nail [facility] Diagnosis Exostosis of right foot- Primary Onychomycosis Dermatophytosis of nail Pain in right toe(s) [facility] Exostosis of right foot- Primary Onychomycosis Dermatophytosis of nail Pain in right toe(s) [facility] Diagnosis Pre-op testing- Primary Unspecified pre-operative examination Pre-op testing Unspecified pre-operative examination Exostosis of right foot Pain in right toe(s) Pre-op testing Unspecified pre-operative examination Exostosis of right foot Pain in right toe(s) [facility] Diagnosis Pre-op testing Unspecified pre-operative examination Exostosis of right foot Pain in right toe(s) Exostosis of right foot- Primary Onychomycosis Dermatophytosis of nail Callus of foot Corns and callosities Pre-op testing Unspecified pre-operative examination Exostosis of right foot Pain in right toe(s) [facility] Diagnosis Exostosis of right foot- Primary Onychomycosis Dermatophytosis of nail Callus of foot Corns and callosities [facility] Diagnosis No post-op complications- Primary [facility]* Diagnosis Posterior tibial tendonitis, right- Primary Posterior tibial tendonitis, right [facility] Diagnosis Plantar warts- Primary Plantar wart Pain in left foot Pain in soft tissues of limb [facility]* Diagnosis Verruca vulgaris- Primary Viral warts, unspecified Arthritis of right foot Pain in left foot Pain in soft tissues of limb [facility] Diagnosis Verrucae vulgaris- Primary Viral warts, unspecified Pain in right foot Pain in soft tissues of limb [facility]* Diagnosis Patient left without being seen- Primary Surgical or other procedure not carried out because of patient's decision documented in this encounter [facility] note* Diagnosis Onychomycosis- Primary Dermatophytosis of nail Verrucae vulgaris Viral warts, unspecified Pain of toe of right foot [facility] Diagnosis Onychomycosis- Primary Dermatophytosis of nail Verrucae vulgaris Viral warts, unspecified Pain in toe of right foot Pain in soft tissues of limb Pain in right foot [M79.671 (ICD-10-CM)] Pain in soft tissues of limb [facility] Diagnosis Exostosis of left foot- Primary Callus of foot Corns and callosities [facility] Diagnosis Callus of foot- Primary Corns and callosities Acquired left hindfoot varus Exostosis Exostosis of unspecified site Pain of toe of right foot [M79.674] Onychomycosis [B35.1] Dermatophytosis of nail [facility] Diagnosis Chest wall pain- Primary Painful respiration Longstanding persistent atrial fibrillation (CMS/HCC) Dyspepsia Dyspepsia and other specified disorders of function of stomach documented in this encounter [facility] Work Phone: Evaluation note* Diagnosis Verrucae vulgaris- Primary Viral warts, unspecified Pain in left foot Pain in soft tissues of limb [facility] Diagnosis Corns- Primary Corns and callosities Verrucae vulgaris Viral warts, unspecified Exostosis Exostosis of unspecified site [facility] Diagnosis Longstanding persistent atrial fibrillation (CMS/HCC)- Primary Dyspepsia Dyspepsia and other specified disorders of function of stomach documented in this encounter [facility] Work Phone: Evaluation note* Diagnosis Non-ischemic cardiomyopathy (CMS/HCC)- Primary Other primary cardiomyopathies Longstanding persistent atrial fibrillation (CMS/HCC) Dyspepsia Dyspepsia and other specified disorders of function of stomach documented in this encounter [facility] Work Phone: Evaluation note* Diagnosis Abdominal bloating- Primary Flatulence, eructation, and gas pain documented in this encounter [facility] Work Phone: Evaluation note* Diagnosis Abdominal bloating Flatulence, eructation, and gas pain documented in this encounter [facility] Work Phone: Evaluation note* Diagnosis Abdominal bloating Flatulence, eructation, and gas pain documented in this encounter [facility] Work Phone: Evaluation note* Diagnosis Abdominal bloating Flatulence, eructation, and gas pain documented in this encounter [facility] Work Phone: History of Present illness [...] again in the next month * Seen [facility] in November, taking Xarelto, testing shows 100% atrial fibrillation, not aware * + pain in foot and ankles, planning to do TKR at some point [facility] Work Phone: reason for referral (narrative)* Consultation (Routine) - Authorized Specialty Diagnoses / Procedures Referred By Contac t Referred To Contact Primary Care Diagnoses Longstanding persistent atrial fibrillation ([facility]/HCC) Dyspepsia Procedures Follow Up In Primary Care - Established Eben Vo MD [address] [place] [address] Referral ID Status Reason Start Date Expiration Date V isits Requested Visits Authorized [id number] Authorized 11/01/2022 04/30/2023 1 1 * Consultation (Routine) - Authorized Specialty Diagnoses / Procedures Referred By Contac t Referred To Contact Gastroenterology Diagnoses Dyspepsia Procedures NM OFFICE/OUTPATIENT NEW HIGH MDM 60-74 MINUTES Eben Vo MD [address] [place] [address] Referral ID Status Reason Start Date Expiration Date Visits Requested Visits Authorized [id number] Authorized Specialty Services Required 11/01/2022 04/30/2023 1 1 [facility] Work Phone: Reason for referral (narrative)* Consultation (Routine) - Authorized Specialty Diagnoses / Procedures Referred By Holger thornton Referred To Contact Primary Care Diagnoses Longstanding persistent atrial fibrillation (CMS/HCC) Dyspepsia Non-ischemic cardiomyopathy (CMS/HCC) Procedures Follow Up In Primary Care Eben Vo MD [address] [place] [address] Referral ID Status Reason Start Date Expiration Date V isits Requested Visits Authorized [id number] Authorized 12/13/2022 12/13/2023 1 1 [facility] Work Phone: Assessments Diagnosis Carpal tunnel syndrome, [...] FoundDocuments on File Type Date Recorded Patient [employer] Advance Directives and Living Will Documents on File Type Date Recorded Patient [employer] Advance Directives and Livin g Will 03/21/2021 2:51 PM Documents on File Type Date Recorded Patient [employer] Advance Directives and Livin g [...] Procedures US abdomen complete Eben Vo MD [address] [place] [address] Referral ID Status Reason Start Date Expiration Date Visits Requested Visits Authorized [id number] Authorized Perform Procedure 3 01/16/2024 1 1 Specialty Diagnoses / Procedures Referred By Contac t Referred To Contact Radiology Diagnoses Abdominal bloating Procedures NM hepatobiliary w cholecystokinin Eben Vo MD [address] [place] [address] Referral ID Status Reason Start Date Expiration Date Visits Requested Visits Authorized [id number] Pending Review Perform Procedure 3 01/31/2024 3 [...] DATE CREATED AUTHOR [facility]'S ORGANIZ ATION [facility] CREATED AUTHOR AUTHOR'S ORGANIZ ATION 09/25/2021 [facility] DATE CREATED AUTHOR AUTHOR'S ORGANIZ ATION 05/18/2022 [facility] DATE CREATED AUTHOR AUTHOR'S ORGANIZ ATION 10/20/2022 [facility] DATE CREATED AUTHOR AUTHOR'S ORGANIZ ATION 11/02/2022 [facility] DATE CREATED AUTHOR AUTHOR'S ORGANIZ ATION 01/19/2023 [facility] DATE CREATED AUTHOR AUTHOR'S ORGANIZ ATION 02/13/2023 [facility] DATE CREATED AUTHOR AUTHOR'S ORGANIZ ATION 02/28/2023 [facility] <item><item> Privacy Markings (unrecogniz ed section [...] Care Teams (unrecognized sec tion and content) Stock And [employer] Agent Relationship Specialty Start Date End Date Eben Vo MD [address] [place] [address] PCP - General Family Medicine 07/15/17 [employer] Agent Relationship Specialty Start Date End Date Eben Vo MD [address] [place] [address] PCP - General Family Medicine 07/15/17 Stock And Station Agent Relationship Specialty Start Date End Date Eben Vo MD [address] [place] [address] PCP - General Family Medicine 07/15/17 Stock And Station Agent Relationship Specialty Start Date End Date Eben Vo MD [address] [place], [place] [phone] PCP - General Family Medicine 07/15/17 Stock And Station Agent Relationship Specialty Start Date End Date Eben Vo MD [address] [place], [place] [phone] PCP - General Family Medicine 07/15/17 Stock And Station Agent Relationship Specialty Start Date End Date Eben Vo MD [address] [place], [place] [phone] PCP - General Family Medicine 07/15/17 Stock And Station Agent Relationship Specialty Start Date End Date Eben Vo MD [address] [place], [place] [phone] PCP - General Family Medicine 07/15/17 Stock And Station Agent Relationship Specialty Start Date End Date Eben Vo MD [address] [place], [place] [phone] PCP - General Family Medicine 07/15/17 Stock And Station Agent Relationship Specialty Start Date End Date Eben Vo MD [address] [place], [place] [phone] PCP - General Family Medicine 07/15/17 Stock And Station Agent Relationship Specialty Start Date End Date Lavelle Boone MD [address] [place], [place] [phone] PCP - General Family Practice 01/03/20 Stock And Station Agent Relationship Specialty Start Date End Date Eben Vo MD [address] [place], [place] [phone] PCP - General Family Medicine 07/15/17 Stock And Station Agent Relationship Specialty Start Date End Date Eben Vo MD [address] [place] [address] PCP - General Family Medicine 07/15/17 Stock And Station Agent Relationship Specialty Start Date End Date Eben Vo MD [address] [place] [address] PCP - General Family Medicine 07/15/17 Stock And Station Agent Relationship Specialty Start Date End Date Lavelle Boone MD [address] [place] [address] PCP - Aet Medicare Advantage PCP 02/17/21 Stock And Station Agent Relationship Specialty Start Date End Date Eben Vo MD [address] [place], [place] [phone] PCP - General Family Medicine 07/15/17 Stock And Station Agent Relationship Specialty Start Date End Date Eben Vo MD [address] [place], [place] [phone] PCP - General Family Medicine 07/15/17 Stock And Station Agent Relationship Specialty Start Date End Date Lavelle Boone MD PCP - [employer] Medicare Advantage PCP 02/17/21 Eben Vo MD [address] [place] [address] PCP - General 10/15/22 Stock And Station Agent Relationship Specialty Start Date End Date Lavelle Boone MD [address] [place] [address] PCP - [employer] Medicare Advantage PCP 02/17/21 Eben Vo MD [address] [place] [address] PCP - General 10/15/22 Lucille Gerard truckload checkerCloth Seconds Sorter 12/05/22 Stock And Station Agent Relationship Specialty Start Date End Date Lavelle Boone MD [address] [place] [address] PCP - [employer] Medicare Advantage PCP 02/17/21 bEen Vo MD [address] [place] [address] PCP - General 10/15/22 Lucille Gerard truckload checkerCloth Seconds Sorter 12/05/22 Stock And Station Agent Relationship Specialty Start Date End Date Lavelle Boone MD [address] [place] [address] PCP - [employer] Medicare Advantage PCP 02/17/21 Eben Vo MD [address] [place] [address] PCP - General 10/15/22 Lucille Gerard truckload checkerCloth Seconds Sorter 12/05/22 Stock And Station Agent Relationship Specialty Start Date End Date Lavelle Boone MD [address] [place] [phone] PCP - [employer] Medicare Advantage PCP 02/17/21 Eben Vo MD [address] [place] [phone] PCP - General 10/15/22 Lucille Gerard, truckload checkerCloth Seconds Sorter 12/05/22 Stock And Station Agent Relationship Specialty Start Date End Date Lavelle Boone MD [address] [place] [phone] PCP - [employer] Medicare Advantage PCP 02/17/21 [facility] [address] [facility] [place] [phone] PCP - General 10/15/22 Lucille Gerard, truckload checkerCloth Seconds Sorter 12/05/22 Reason for Visit (unrecogniz ed section [...] secondary cataract Procedures POST-CATARACT LASER SURGERY [facility] [address] Raul Rivera MD [address] [place] [address] Raul Rivera MD [address] [place] [id number] Referral ID Status Reason Start Date Expiration Date Visits Re quested Visits Authorized [id number] Closed 07/11/2021 02/16/2022 1 1 Reason Comments [...] Primary Care Diagnoses Longstanding persistent atrial fibrillation ([facility]) Dyspepsia Procedures Follow Up In Primary Care - Established Eben Vo MD [address] [place] [address] Referral ID Status Reason Start Date Expiration Date V isits Requested Visits Authorized [id number] Authorized 11/01/2022 04/30/2023 1 1 Reason Comments [...] US abdomen complete Eben Vo MD [address] [place] [phone] Referral ID Status Reason Start Date Expiration Date Visits Requested Visits Authorized [id number] Authorized Perform Procedure 3 01/16/2024 1 1 Specialty Diagnoses / Procedures Referred By Contac t Referred To Contact Radiology Diagnoses Abdominal bloating Procedures NM hepatobiliary w cholecystokinin Eben Vo MD [id number] [phone] Referral ID Status Reason Start Date Expiration Date Visits Requested Visits Authorized [id number] Pending Review Perform Procedure 3 01/31/2024 3 3 Source Comments (unrecognize d section and content) In the event this informatio n is protected by the Federal Confidentiality of Alcohol and Drug Abuse Patient Records regulations: The Federal rules restrict any use of the information to criminally investigate or prosecute any alcohol or drug abuse patient.[facility] FOR RECORDS PERTAINING TO PATIENTS WHO ARE [...] BE BASED ON THE PRIMARY CLINICAL RECORDS. [employer] [facility]. provides no warranty or guarantee of the accuracy or completeness of information in this document.
[2023-03-06 13:36] LABS: Anion Gap 4 (5-15); BUN 26 mg/dL (7-18); BUN/Creat Ratio 14.3 RATIO (10-20); Calcium,Total 8.8 mg/dL (8.5-10.1); Chloride 101 mmol/L (98-107); Creatinine, Serum 1.82 mg/dL (0.70-1.30); EST Glomerular Filtration Rate 39 mL/min (>60); Est Glom Filt Rate - Afr Amer 47 mL/min (>60); Glucose 102 mg/dL (74-106); Potassium 3.6 mmol/L (3.5-5.1); Sodium Level 140 mmol/L (136-145)
== END | disposition home or self-care (01) ==
LOC: LAB 12:25
PROVIDERS: PCP Family Medicine; Referring Provider Nurse Practitioner Gerontology; Visit Provider Nurse Practitioner Gerontology
DX: Z51.81 Encounter for therapeutic drug level monitoring (principal); Z79.899 Other long term (current) drug therapy
CPT/HCPCS: 36415; 80048

== ENCOUNTER → 2023-03-19 | Outpatient (CLI) | payer MEDICARE, SELFPAY ==
[2023-03-19 12:33] LABS: Anion Gap 4 (5-15); BUN 27 mg/dL (7-18); BUN/Creat Ratio 16.1 RATIO (10-20); Calcium,Total 8.8 mg/dL (8.5-10.1); Chloride 105 mmol/L (98-107); Creatinine, Serum 1.68 mg/dL (0.70-1.30); EST Glomerular Filtration Rate 43 mL/min (>60); Est Glom Filt Rate - Afr Amer 52 mL/min (>60); Glucose 103 mg/dL (74-106); Potassium 4.1 mmol/L (3.5-5.1); Sodium Level 141 mmol/L (136-145)
== END | disposition home or self-care (01) ==
LOC: LAB 11:38
PROVIDERS: PCP Family Medicine; Referring Provider Nurse Practitioner Gerontology; Visit Provider Nurse Practitioner Gerontology
DX: Z51.81 Encounter for therapeutic drug level monitoring (principal); Z79.899 Other long term (current) drug therapy
CPT/HCPCS: 36415; 80048

== ENCOUNTER 2023-03-25 08:57 | Day surgery (SDC) | payer MEDICARE, SELFPAY ==
[2023-03-25 09:43] VITALS: BP 104/59; PULSE 40; RESP 16; O2SAT 97; BMI 25.1
[2023-03-25] MEDS: Lactated Ringers 1,000 ML 15 ML IV (09:59)
--- NOTE | 2023-03-25 10:00 | HP.PCM_ITS ---
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 Is patient in pain?: No Allergies Sulfa (Sulfonamide Antibiotics) Allergy (Verified 03/19/23 13:21) sores in mouthsulfamethoxazole [From Bactrim] Allergy (Verified 03/19/23 13:21) Sores in mouth Medications tamsulosin 0.4 mg capsule (Flomax) 0.4 mg PO DAILY urine 07/30/21 [History Confirmed 03/19/23] omeprazole magnesium 20 mg tablet,delayed release (Prilosec OTC) 20 mg PO DAILY stomach 11/06/22 [History Confirmed 03/19/23] rivaroxaban 20 mg tablet (Xarelto) 20 mg PO DAILY blood thinner #90 tabs 11/27/22 [Rx Confirmed 03/19/23] amiodarone 200 mg tablet 200 mg PO DAILY #90 tabs 12/17/22 [Rx Confirmed 4] dapagliflozin propanediol 10 mg tablet (Farxiga) 10 mg PO DAILY #90 tabs 12/30/22 [Rx Confirmed 03/19/23] carvedilol 12.5 mg tablet 12.5 mg PO BID #180 tabs 01/17/23 [Rx Confirmed 03/19/23] furosemide 40 mg tablet 40 mg PO DAILY diuretic #90 tabs 03/06/23 [Rx Confirmed 03/19/23] [facility] Medical History Abnormal EKG Arthritis Bone spur of right foot Coronary artery calcification Essential hypertension Hyperlipidemia 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 New onset atrial fibrillation Non-ST elevated myocardial infarction Nonischemic cardiomyopathy Paroxysmal atrial fibrillation Premature ventricular contractions Surgical History Finger laceration (02/27/18) History of appendectomy History of arthroscopic knee surgery History of bilateral cataract extraction History of colonoscopy (05/31/14) History of foot fracture History of left heart catheterization (04/21/18) History of left knee replacement (05/09/15) History of tonsillectomy and adenoidectomy Right carpal tunnel syndrome (03/25/18) Family History Mother DiabetesFather Congestive heart failure Flores's lungSister Myocardial infarction CAD (coronary artery disease) DiabetesBrother Diabetes Social History Smoking Status: Never smoker alcohol intake: current alcohol intake frequency: a few times a week caffeine: Yes Type: coffee Number of servings: 1 and tea Number of servings: 1 HPI HPI HPI: Patient is a 72-year-old male here with belching. Patient reports that he has been belching a lot and passing a lot more gas lately. He says has been going on the last few months. He does not describe any pain in his abdomen. He does not state coincides with eating. He is not having any blood in his stool. He does not report any reflux. He denies nausea or vomiting. ROS General General: No weight change, appetite, fatigue, colon cancer, breast cancer or weakness HEENT HEENT: No difficulty swallowing, eye injury, eye surgery, swollen glands or hoarseness Endo Endocrine: No thyroid disease, diabetes mellitus, thyroid cancer, Hair loss, heat intolerance or cold intolerance Skin Skin: No rash or changing moles Breast Breast: No left breast lump, right breast lump, nipple discharge, breast pain, abnormal mammogram, abnormal US or breast enlargement Musc Musculoskeletal: Yes arthritis; No back problems, rheumatoid arthritis, gout or joint pain Cardio Cardiovascular: Yes heart disease; No murmur, pacemaker, atrial fibrillation, high blood pressure, heart attack, heart stent, palpitations, shortness of breat with exertion or chest pain Psych Psychiatric: No depression, anxiety or hearing voices Resp Respiratory: No shortness of breath, No sleep apnea, Yes cough, No COPD, No asthma, No emphysema and No wheezing Gastro Gastrointestinal: Yes abdominal pain, No nausea or vomiting, No diarrhea, No constipation, No blood in stool, No acid reflux, No hemorrhoids, No ulcers, No gallbladder problem and No black,tarry stools Manan Hematologic: Yes blood thinners, No blood disorders, Yes bleeding, No anemia and No blood clots Neuro Neurologic: No system reviewed and no additional complaints, except as documented, No as per HPI, No abnormal gait, No abnormal hearing, No abnormal movements, No abnormal speech, No behavioral changes, No burning sensations, No confusion, No convulsions, No disequilibrium, No dizziness, No localized weakness, No frequent falls, No headache(s), No lack of coordination, No loss of vision, No memory loss, No numbness, No other visual disturbances, No radicular pain, No restless legs, No sensory deficit, No syncope, No tingling, No tremor(s), No weakness and No other Exam Const General: cooperative Orientation: alert and oriented x3 HENMT Head: normal to inspection Neck Neck: normal visual inspection and full ROM Chest Chest palpation & inspection: normal inspection of the chest Resp Effort & Inspection: normal respiratory effort Auscultation: clear to auscultation bilaterally Cardio Rate: regular rate Rhythm: regular rhythm GI Inspection: non-distended Palpation: soft and nontender Skin General: no rashes or lesions noted Neuro General: patient alert and patient oriented x3 Extrem General: full ROM Psych Appearance: grossly normal Mental Status: mental status grossly normal Assessment and Plan Assessment and Plan (1) Belching: Status: Acute Plan: Patient reports has been having a lot of belching and passing a lot of gas. He is already on a PPI and has been for several months. He does not report it is improving anything. He was originally sent here because a HIDA showed delayed filling and hyperkinesia. Patient is not having any pain on the right side or issue with eating. I would like to evaluate the stomach before considering cholecystectomy. I discussed performing an EGD. I will hold his Xarelto for 1 day per cardiology. I explained endoscopy in detail to the patient. I explained the risks including but not limited to stroke or heart attack with anesthesia, perforation of the GI tract, bleeding, infection. I explained that any of these could necessitate further emergency surgery. The patient understands and all questions were answered sufficiently. The patient wishes to proceed with procedure. If the EGD is normal then I will discuss cholecystectomy. Jorge Angulo MD Pager: [facility] [address] [place] [address], [address] [place] [address] Office: I have examined the patient and the H&P has been reviewed. There are no clinical changes since date of exam.
[2023-03-25 10:20] VITALS: BP 104/59; BP 91/54; PULSE 42; RESP 16; TEMP 36.3; O2SAT 96
[2023-03-25 10:25] VITALS: BP 104/59; BP 92/54; PULSE 42; RESP 16; O2SAT 96
--- NOTE | 2023-03-25 10:26 | OP.EGD_ITS ---
Patient Name: Tera Sandra Procedure Date: 03/25/2023 10:02 AM Date of : 1950 Age: 72 Procedure: Upper GI endoscopy Indications: Eructation Providers: Jorge Angulo MD Medicines: Monitored Anesthesia Care Patient Profile: This is a 72 year old male. Refer to note in patient chart for documentation of history and physical. Complications: No immediate complications. Procedure: Pre-Anesthesia Assessment: - Prior to the procedure, a History and Physical was performed, and patient medications and allergies were reviewed. The patient's tolerance of previous anesthesia was also reviewed. The risks and benefits of the procedure and the sedation options and risks were discussed with the patient. All questions were answered, and informed consent was obtained. Prior Anticoagulants: The patient has taken Xarelto (rivaroxaban), last dose was 1 day prior to procedure. After reviewing the risks and benefits, the patient was deemed in satisfactory condition to undergo the procedure. After obtaining informed consent, the endoscope was passed under direct vision. Throughout the procedure, the patient's blood pressure, pulse, and oxygen saturations were monitored continuously. The Endoscope was introduced through the mouth, and advanced to the fourth part of duodenum. The upper GI endoscopy was accomplished without difficulty. The patient tolerated the procedure well. Scope In: 10:11:22 AM Scope Out: 10:14:03 AM Total Procedure Duration Time 0 hours 2 minutes 41 seconds Findings: The esophagus was normal. The stomach was normal. There was bile in the stomach indicating bile reflux. The examined duodenum was normal. Impression: - Normal esophagus. - Normal stomach. - Normal examined duodenum. - No specimens collected. Recommendation: - Discharge patient to home. - Resume previous diet. - Continue present medications. - Resume Xarelto (rivaroxaban) at prior dose today. - Use sucralfate tablets 1 gram PO QID for 2 weeks. Procedure Code(s): --- Professional --- 55223, Esophagogastroduodenoscopy, flexible, transoral; diagnostic, including collection of specimen(s) by brushing or washing, when performed (separate procedure) Diagnosis Code(s): --- Professional --- R14.2, Eructation CPT copyright 2021 [employer]. All rights reserved. The codes documented in this report are preliminary and upon tow picker review may be revised to meet current compliance requirements. Jorge Angulo MD 03/25/2023 10:26:37 AM This report has been signed electronically. Number of Addenda: 0 Note Initiated On: 03/25/2023 10:02 AM
--- NOTE | 2023-03-25 10:27 | OP.CCLET_ITS ---
03/25/2023 Alfonso Vo Re : Upper GI endoscopy procedure for Trea Venegas Gilda This procedure was performed on Saturday, March 25, 2023. My impressions and recommendations are as follows: Impressions : - Normal esophagus. - Normal stomach. - Normal examined duodenum. - No specimens collected. Recommendations : - Discharge patient to home. - Resume previous diet. - Continue present medications. - Resume Xarelto (rivaroxaban) at prior dose today. - Use sucralfate tablets 1 gram PO QID for 2 weeks. My findings are described in the full procedure note, which is enclosed. If I can be of further assistance, please feel free to contact me at Doctor phone number(s): , Work: . Sincerely, Jorge Angulo MD 03/25/2023 10:26:37 AM This report has been signed electronically.
[2023-03-25 10:30] VITALS: BP 104/59; BP 97/57; PULSE 40; RESP 16; O2SAT 94
[2023-03-25 10:35] VITALS: BP 104/59; BP 98/58; PULSE 40; RESP 16; TEMP 36.3
[2023-03-25 11:20] VITALS: BP 104/59
== END 2023-03-25 11:53 | disposition home or self-care (01) ==
LOC: EN 08:59 → AC 09:34
PROVIDERS: PCP Family Medicine; Referring Provider Family Medicine; Visit Provider Surgery
PROC: 0DJ08ZZ Inspection of Upper Intestinal Tract, Via Natural or Artificial Opening Endoscopic (ICD-10-PCS; CPT 43235; principal; 2023-03-25 10:40)
DX: R14.2 Eructation (principal); I42.8 Other cardiomyopathies; I50.9 Heart failure, unspecified; I11.0 Hypertensive heart disease with heart failure; I48.0 Paroxysmal atrial fibrillation; I25.10 Atherosclerotic heart disease of native coronary artery without angina pectoris; I25.2 Old myocardial infarction; Z79.899 Other long term (current) drug therapy; Z79.01 Long term (current) use of anticoagulants
CPT/HCPCS: 43235; J7120; J2405

== ENCOUNTER → 2023-04-18 | Outpatient (CLI) | payer MEDICARE, SELFPAY ==
--- NOTE | 2023-04-18 07:31 | CT_ITS ---
STUDY: CT ABDOMEN AND PELVIS WITH CONTRAST REASON FOR EXAM: Male, 72 years old. Abdominal pain RADIATION DOSAGE (If Supplied By Facility): CTDIvol = ( 16.61 ) mGy, DLP = ( 654.76 ) mGycm TECHNIQUE: Transaxial images were obtained from the dome of the diaphragm to the symphysis pubis with oral contrast. Oral and amp; IV Readi-CAT and amp; 100mL Isovue-370 was administered. Sagittal and coronal images were reconstructed. Individualized dose optimization techniques were used for this CT. COMPARISON: None. FINDINGS: Small linear density in the posterior medial segment of the right lower lobe suggestive of linear scarring and/or atelectasis. Coronary artery calcifications. Normal liver. Normal gallbladder and extrahepatic biliary system. Normal spleen. Normal pancreas. Normal bilateral adrenal glands. Normal right kidney. Normal left kidney. Normal visualized stomach. Normal small intestine. Large amount of fecal material is seen in the colon. The patient is status post appendectomy. There is diffuse atherosclerotic calcification of the abdominal aorta and its major visceral branches, without a demonstrated aneurysm. Normal inferior vena cava. Normal retroperitoneum. Normal urinary bladder. Heterogeneous enlargement of the prostate with calcification. The prostate measures 4.7 cm x 5 cm. This causes indentation at the bladder base. Normal abdominal wall. There are diffuse degenerative changes of the visualized lumbar spine. CT/Abdomen/Pelvis WITH Contrast IMPRESSION: Large amount of fecal material is seen in the colon. Status post appendectomy. Electronically Signed: Carlos Gonzalez MD at 9:53 EST ,
--- OUTSIDE RECORDS SUMMARY | 2023-04-18 07:52 | XMS RPT_ITS | CCD ---
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 Name Role Phone Eben Vo Unavailable Eben [...] Unavaila ble MEL PAUL Attending Unavaila ble EBEN VO Primary Care Unavailab MEL Caldwell Admitting Unavaila [...] Cazares Admitting Unavailable Lavelle Boone MD Unavailable STENCEL, EBEN Mathews Primary Care Unavailable Lavelle Boone MD Unavailable Unavailab le Stencel Eben QUACH Primary Care Provider [phone] Lavelle Boone MD Unavailable Moustapha BANUELOS, Lucille Unavailable Unavailable LAVELLE BOONE Primary Care Unavaila ble RIVERA, RAUL K Referring Unavailable RIVERA, RAUL K Attending Unavailable STENCEL, EBEN Mathews Referring Unavailable STENCEL, EBEN Mathews Primary Care Unavailable CHRIS CAZARES R Referring Unavailable STENCEL, EBEN Mathews Primary Care Unavailable Armandocel Eben QUACH Unavailable [phone] LAVELLE BOONE Attending Unavailable STENCEL, EBEN Mathews Primary Care Unavailable STENCEL, EBEN Mathews Attending Unavailable STENCEL, EBEN Mathews Primary Care Unavailable STENCEL, EBEN Mathews Attending Unavailable STENCEL, EBEN Mathews Referring Unavailable STENCEL, EBEN Mathews Primary Care Unavailable CHRIS CAZARES R Attending Unavailable STENCEL, EBEN Mathews Primary Care Unavailable STENCEL, EBEN Mathews Attending Unavailable STENCEL, EBEN Mathews Referring Unavailable STENCEL, EBEN Mathews Primary Care Unavailable STENCEL, EBEN LUNA Primary Care Unavailab le MEL PAUL Attending Unavaila ble MEL PAUL Attending Unavaila ble STENCELEBEN Primary Care Unavailab le STENCEL, EBEN LUNA Primary Care Unavailab le MEL PAUL Attending Unavaila ble STENCEL, EBEN LUNA Primary Care Unavailab le PAULMEL CONNOR Attending Unavaila ble MEL PAUL Referring Unavaila ble STENCEL, EBEN LUNA Primary Care Unavailab le MEL PAUL Admitting Unavaila ble MEL PAUL Attending Unavaila ble STENCEL, EBEN LUNA Primary Care Unavailab le STENCEL, EBEN LUNA Primary Care Unavailab le MEL PAUL Referring Unavaila ble MEL PAUL Admitting Unavaila ble MEL PAUL Attending Unavaila ble STENCEL, EBEN LUNA Primary Care Unavailab le MEL PAUL Referring Unavaila ble MEL PAUL Admitting UnavailEBEN Farias Primary Care Unavailab EBEN Piña Primary Care Unavailab MEL Caldwell Attending Unavaila ble Allergies Allergy Classification Reported Allergen(s) Allergy Type Date of Onset Reaction(s) Facility Sulfonamides (antibiotic) (1 source) Sulfonamides (Antibiotic) Drug Allergy Other [facility] Medications Current Medications Medication Drug Class(es) Dates Sig (Normalized) Sig (Original) amiodarone hydrochloride 200 mg oral tablet (8 sources) Antiarrhythmic Start: 12-04-2022 amiodarone (CORDARONE) 200 MG tablet 2 (two) times a day . 0 12/04/2022 Active Ascorbic Acid (16 sources) Vitamin C ascorbic acid (VITAMIN C ORAL) Take by mouth Morning . 0 Active carvedilol 12.5 mg oral tablet (8 sources) alpha-Adrenergic Ranjan, beta-Adrenergic Ranjan Start: 11-27-2022 carvediloL (COREG) 12.5 MG tablet 2 (two) times a day with meals . 0 11/27/2022 Active Completed/Discontinued Medications Medication Drug Class(es) Dates [...] 01-22-2021 01-22-2021 Chronic Disorders of lipid metabolism (14 sources) Mixed hyperlipidemia; Translations: [Mixed hyperlipidemia] Onset: 10-15-2022 10-15-2022 Chronic Hyperplasia of prostate (20 sources) Benign prostatic hypertrophy without outflow obstruction; Translations: [Hypertrophy (benign) of prostate without urinary obstruction and other lower urinary tract symptom (LUTS)] Onset: 10-15-2022 10-15-2022 Chronic Mycoses (13 sources) Onychomycosis of toenails; Translations: [Tinea unguium] Onset: 04-03-2023 Episodic Open wounds of extremities (3 sources) Laceration [...] Chronic Other bone disease and musculoskeletal deformities (20 sources) Exostosis of right foot; Translations: [Other specified disorders of bone, ankle and foot] Onset: 02-22-2021 Episodic Other bone disease and musculoskeletal deformities (3 sources) Exostosis of left foot; Translations: [Other specified disorders of bone, ankle and foot] Episodic Other bone disease and musculoskeletal deformities (2 sources) Exostosis; Translations: [Other specified disorders of bone, unspecified site] 08-01-2022 Episodic Other bone disease and musculoskeletal deformities (2 sources) Other specified disorders of bone, ankle and foot; Translations: [Other specified disorders of bone, ankle and foot] Onset: 02-22-2021 Episodic Other congenital anomalies (1 source) Talipes planus; 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 Other connective tissue disease (1 source) Plantar fasciitis of right foot; Translations: [Plantar fascial fibromatosis] Episodic Other connective tissue disease (1 source) Tendinitis of right posterior tibial tendon; Translations: [Posterior tibial tendinitis, right leg] Episodic Other connective tissue disease (1 source) Calcaneal spur of right foot; Translations: [Calcaneal spur, right foot] 04-03-2023 Episodic Other connective tissue disease (1 source) Pain of toes of bilateral feet; Translations: [Pain in right toe(s)] 04-03-2023 Episodic Other connective tissue disease (2 sources) Calcaneal spur, right foot; Translations: [Calcaneal spur, right foot] Onset: 04-03-2023 Episodic Other gastrointestinal disorders (11 sources) Abdominal bloating; Translations: [Abdominal distension (gaseous)] [...] Numbness of hand Episodic Other skin disorders (6 sources) Foot callus; Translations: [Corns and callosities] Episodic Other skin disorders (1 source) [place] - lesion ; Translations: [Corns and callosities] 10-31-2022 Episodic Other upper respiratory disease (8 sources) Allergic rhinitis; Translations: [Allergic rhinitis, cause unspecified] Chronic Daija-; endo-; and myocarditis; cardiomyopathy (except that caused by tuberculosis or sexually transmitted disease) (11 sources) Cardiomyopathy; Translations: [Other cardiomyopathies] Onset: 12-13-2022 [...] Date Documented Da te Episodic/Chronic Abdominal pain (6 sources) Indigestion; Translations: [Epigastric pain] Onset: 10-15-2022 10-15-2022 Episodic Acquired foot deformities (3 sources) Acquired varus heel; Translations: [Varus deformity, not elsewhere classified, left ankle] Onset: 07-04-2022 08-01-2022 Episodic Blindness and vision defects (3 sources) Regular astigmatism of right eye; Translations: [Regular astigmatism, right eye] Onset: 01-10-2020 01-10-2020 Episodic Blindness and vision defects (1 source) Regular astigmatism of left eye; Translations: [Regular astigmatism, left eye] Onset: 01-10-2020 01-10-2020 Episodic Nonspecific chest pain (5 sources) Chest wall pain; Translations: [Other chest pain] Onset: 10-15-2022 10-15-2022 Episodic Other bone disease and musculoskeletal deformities (2 sources) Other specified disorders of bone, unspecified site; Translations: [Other specified disorders of bone, unspecified site] Onset: 10-31-2022 Episodic Other circulatory disease (1 source) H/O: atrial fibrillation; Translations: [Personal history of other diseases of the circulatory system] Onset: 01-10-2020 01-10-2020 Episodic Other connective tissue disease (20 sources) Pain of toe of right foot; Translations: [Pain in right toe(s)] Onset: 02-22-2021 Episodic Other connective tissue disease (4 sources) Pain in left foot; Translations: [Pain in left foot] Onset: 10-03-2022 Episodic Other connective tissue disease (4 sources) Pain in right foot; Translations: [Pain in right foot] Onset: 10-03-2022 Episodic Other connective tissue disease (1 source) Pain in right foot; Translations: [Pain in right foot] Onset: 10-03-2022 Episodic Other connective tissue disease (1 source) Pain in left foot; Translations: [Pain in left foot] Onset: 10-03-2022 Episodic Other connective tissue disease (1 source) Pain in right toe(s); Translations: [Pain in right toe(s)] Onset: 08-01-2022 Episodic Other eye disorders (1 source) Hypertropia [...] and callosities; Translations: [Corns and callosities] Onset: 10-03-2022 Episodic Unclassified (20 sources) Patient encounter status; Translations: [Medicare annual wellness visit, subsequent] Unclassified (9 sources) Onset: 10-15-2022 Resolved: 03-18-2023 10-15-2022 Viral infection (10 sources) Verruca plantaris; Translations: [Plantar wart] Onset: 10-03-2022 Episodic NEGATED: Highlighted row has not occurred!Residual codes; unclassified (6 sources) Disease Episodic Results Test Name Value Interpretation Reference Range Facil ity Vital Signs Date Time Vital Sign Value Performing Clinician Colton mckeon 04-03-2023 13:12-0500 Body temperature 97.11 [degF] Mel Paul DPM Work Phone: [facility] 04-03-2023 13:12-0500 Diastolic blood pressure 66 mm[Hg] Mel Paul DPM Work Phone: [facility] 04-03-2023 13:12-0500 Heart rate 54 /min Mel Paul DPM Work Phone: [facility] 04-03-2023 13:12-0500 Systolic blood pressure 111 mm[Hg] Mel Paul DPM Work Phone: [facility] 03-18-2023 09:10-0500 Body height 172.7 cm Eben Vo MD Work Phone: [phone] [place] [address] 03-18-2023 09:10-0500 Body mass index (BMI) [Ratio] 25.18 kg/m2 Eben Vo MD Work Phone: [facility] 03-18-2023 09:10-0500 Body weight 75.12 kg Eben Vo MD Work Phone: [facility] 03-18-2023 09:10-0500 Heart rate 47 /min Eben Vo MD Work Phone: [facility] 03-18-2023 09:10-0500 SaO2% (BldA) [Mass fraction] 94 % Eben Vo MD Work Phone: [facility] 01-16-2023 14:42-0500 Body height 172.7 cm Chris Thomae DO Work Phone: [facility] 01-16-2023 14:42-0500 Body mass index (BMI) [Ratio] 25.03 kg/m2 Chris Thomae DO Work Phone: [facility] 01-16-2023 14:42-0500 Body weight 74.66 kg Chris Thomae DO Work Phone: [facility] 01-16-2023 14:42-0500 Diastolic blood pressure 60 mm[Hg] Chris Thomae DO Work Phone: [facility] 01-16-2023 14:42-0500 Systolic blood pressure 100 mm[Hg] Chris Thomae DO Work Phone: [facility] 12-13-2022 09:09-0400 Body height 172.7 cm Eben Vo MD Work Phone: [facility] 12-13-2022 09:09-0400 Body mass index (BMI) [Ratio] 25.7 kg/m2 Eben Vo MD Work Phone: [facility] 12-13-2022 09:09-0400 Body weight 76.66 kg Eben Vo MD Work Phone: [facility] 12-13-2022 09:09-0400 Diastolic blood pressure 62 mm[Hg] Eben Vo MD Work Phone: [facility] 12-13-2022 09:09-0400 Heart rate 96 /min Eben Vo MD Work Phone: [facility] 12-13-2022 09:09-0400 SaO2% (BldA) [Mass fraction] 94 % Eben Vo MD Work Phone: [facility] 12-13-2022 09:09-0400 Systolic blood pressure 106 mm[Hg] Eben Vo MD Work Phone: [facility] 11-01-2022 08:04-0400 Body height 172.7 cm Eben Vo MD Work Phone: [facility] 11-01-2022 08:04-0400 Body mass index (BMI) [Ratio] 24.77 kg/m2 Eben Vo MD Work Phone: [facility] 11-01-2022 08:04-0400 Body weight 73.89 kg Eben Vo MD Work Phone: [facility] 11-01-2022 08:04-0400 Diastolic blood pressure 72 mm[Hg] Eben Vo MD Work Phone: [facility] 11-01-2022 08:04-0400 Heart rate 58 /min Eben Vo MD Work Phone: [facility] 11-01-2022 08:04-0400 SaO2% (BldA) [Mass fraction] 95 % Eben Vo MD Work Phone: [facility] 11-01-2022 08:04-0400 Systolic blood pressure 120 mm[Hg] Eben Vo MD Work Phone: [facility] 10-31-2022 10:11-0400 Body temperature 98.29 [degF] Mel Paul DPM Work Phone: [facility] 09-14-2023 10:11-0400 Diastolic blood pressure 66 mm[Hg] Mel Colemanmerman DPM Work Phone: [facility] 10-31-2022 10:11-0400 Heart rate 77 /min Mel Colemanmerman DPM Work Phone: [facility] 10-31-2022 10:11-0400 Systolic blood pressure 118 mm[Hg] Mel Colemanmerman DPM Work Phone: [facility] 10-17-2022 08:01-0400 Body temperature 97.5 [degF] Mel Paul DPM Work Phone: [facility] 10-17-2022 08:01-0400 Diastolic blood pressure 77 mm[Hg] Mel Paul DPM Work Phone: [facility] 10-17-2022 08:01-0400 Heart rate 77 /min Mel Colemanmerman DPM Work Phone: [facility] 10-17-2022 08:01-0400 Systolic blood pressure 116 mm[Hg] Mel Colemanmerman DPM Work Phone: [facility] 10-15-2022 11:27-0400 Body height 172.7 cm Lavelle Boone MD Work Phone: [facility] 10-15-2022 11:27-0400 Body mass index (BMI) [Ratio] 24.57 kg/m2 Lavelle Boone MD Work Phone: [facility] 10-15-2022 11:27-0400 Body weight 73.3 kg Lavelle Boone MD Work Phone: [facility] 10-15-2022 11:27-0400 Diastolic blood pressure 64 mm[Hg] Lavelle Boone MD Work Phone: [facility] 10-15-2022 11:27-0400 Heart rate 82 /min Lavelle Boone MD Work Phone: [facility] 10-15-2022 11:27-0400 SaO2% (BldA) [Mass fraction] 95 % Lavelle Boone MD Work Phone: [facility] 10-15-2022 11:27-0400 Systolic blood pressure 108 mm[Hg] Lavelle Boone MD Work Phone: [facility] 08-01-2022 08:08-0400 Body temperature 98.4 [degF] Mel Paul DPM Work Phone: [facility] 08-01-2022 08:08-0400 Diastolic blood pressure 68 mm[Hg] Mel Paul DPM Work Phone: [facility] 08-01-2022 08:08-0400 Heart rate 55 /min Mel Paul DPM Work Phone: [facility] 08-01-2022 08:08-0400 Systolic blood pressure 112 mm[Hg] Mel Paul DPM Work Phone: [facility] 05-09-2022 11:00-0400 Body temperature 98.6 [degF] Mel Paul DPM Work Phone: [facility] 05-09-2022 11:00-0400 Diastolic blood pressure 62 mm[Hg] Mel Paul DPM Work Phone: [facility] 05-09-2022 11:00-0400 Heart rate 52 /min Mel Paul DPM Work Phone: [facility] 05-09-2022 11:00-0400 Systolic blood pressure 114 mm[Hg] Mel Paul DPM Work Phone: [facility] 03-08-2022 08:58-0500 Body height 172.72 cm Eben Vo Work Phone: [facility] Work Phone: 03-08-2022 08:58-0500 Body mass index (BMI) [Ratio] 24.34 kg/m2 Eben Vo Work Phone: [facility] Work Phone: 03-08-2022 08:58-0500 Body surface area Derived from formula 1.86 m2 Eben Robertscel Work Phone: [facility] Work Phone: 03-08-2022 08:58-0500 Body weight 72.6 kg Eben Mathews Stencel Work Phone: [facility] Work Phone: 03-08-2022 08:58-0500 Diastolic blood pressure 80 mm[Hg] Eben Mathews Stencel Work Phone: [facility] Work Phone: 03-08-2022 08:58-0500 Heart rate 56 /min Eben Mathews Stencel Work Phone: [facility] Work Phone: 03-08-2022 08:58-0500 SaO2% (BldA) [Mass fraction] 97 % Eben Mathews Stencel Work Phone: [facility] Work Phone: 03-08-2022 08:58-0500 Systolic blood pressure 140 mm[Hg] Eben Mathews Stencel Work Phone: [facility] Work Phone: 01-31-2022 08:29-0500 Body temperature 98.8 [degF] Mel Paul DPM Work Phone: [facility] 01-31-2022 08:29-0500 Diastolic blood pressure 75 mm[Hg] Mel Paul DPM Work Phone: [facility] 01-31-2022 08:29-0500 Heart rate 61 /min Mel Paul DPM Work Phone: [facility] 01-31-2022 08:29-0500 Systolic blood pressure 133 mm[Hg] Mel Paul DPM Work Phone: [facility] 01-03-2022 08:33-0500 Body temperature 98.49 [degF] Mel Paul DPM Work Phone: [facility] 01-03-2022 08:33-0500 Diastolic blood pressure 67 mm[Hg] Mel Paul DPM Work Phone: [facility] 01-03-2022 08:33-0500 Heart rate 48 /min Mel Paul DPM Work Phone: [facility] 01-03-2022 08:33-0500 Systolic blood pressure 121 mm[Hg] Mel Paul DPM Work Phone: [facility] 08-02-2021 08:46-0400 Body temperature 98.01 [degF] Mel Paul DPM Work Phone: [facility] 08-02-2021 08:46-0400 Diastolic blood pressure 64 mm[Hg] Mel Paul DPM Work Phone: [facility] 08-02-2021 08:46-0400 Heart rate 57 /min Mel Paul DPM Work Phone: [facility] 08-02-2021 08:46-0400 Systolic blood pressure 107 mm[Hg] Mel Paul DPM Work Phone: [facility] 07-12-2021 08:15-0400 Body temperature 97.9 [degF] Mel Paul DPM Work Phone: [facility] 07-12-2021 08:15-0400 Diastolic blood pressure 60 mm[Hg] Mel Paul DPM Work Phone: [facility] 07-12-2021 08:15-0400 Heart rate 44 /min Mel Paul DPM Work Phone: [facility] 07-12-2021 08:15-0400 Systolic blood pressure 108 mm[Hg] Mel Paul DPM Work Phone: [facility] 06-21-2021 08:18-0400 Body temperature 98.01 [degF] Mel Raphaelman DPM Work Phone: [facility] 06-21-2021 08:18-0400 Diastolic blood pressure 70 mm[Hg] Mel Colemanmerman DPM Work Phone: [facility] 06-21-2021 08:18-0400 Heart rate 77 /min Mel Raphaelman DPM Work Phone: [facility] 06-21-2021 08:18-0400 Systolic blood pressure 113 mm[Hg] Mel Raphaelman DPM Work Phone: [facility] 2021 08:45-0400 Body temperature 97.7 [degF] Mel Raphaelman DPM Work Phone: [facility] 2021 08:45-0400 Diastolic blood pressure 80 mm[Hg] Mel Colemanmerman DPM Work Phone: [facility] 2021 08:45-0400 Heart rate 67 /min Mel Raphaelman DPM Work Phone: [facility] 2021 08:45-0400 Systolic blood pressure 128 mm[Hg] Mel Raphaelman DPM Work Phone: [facility] 05-10-2021 08:36-0400 Diastolic blood pressure 74 mm[Hg] Mel Raphaelman DPM Work Phone: [facility] 05-10-2021 08:36-0400 Heart rate 50 /min Mel Raphaelman DPM Work Phone: [facility] 05-10-2021 08:36-0400 Systolic blood pressure 123 mm[Hg] Mel Raphaelman DPM Work Phone: [facility] 05-10-2021 08:31-0400 Body temperature 98.1 [degF] Mel Raphaelman DPM Work Phone: [facility] 04-19-2021 14:28-0500 Body temperature 98.2 [degF] Mel Colemanmerman DPM Work Phone: [facility] 04-19-2021 14:28-0500 Diastolic blood pressure 68 mm[Hg] Mel Beverly DPM Work Phone: [facility] 04-19-2021 14:28-0500 Heart rate 69 /min Melheidi ColemanPaul DPM Work Phone: [facility] 04-19-2021 14:28-0500 Systolic blood pressure 132 mm[Hg] Mel Paul DPM Work Phone: [facility] 04-05-2021 08:29-0500 Body temperature 97.9 [degF] Mel Paul DPM Work Phone: [facility] 04-05-2021 08:29-0500 Diastolic blood pressure 69 mm[Hg] Melheidi ColemanPaul DPM Work Phone: [facility] 04-05-2021 08:29-0500 Heart rate 58 /min Melheidi ColemanPaul DPM Work Phone: [facility] 04-05-2021 08:29-0500 Systolic blood pressure 117 mm[Hg] Melheidi ColemanPaul DPM Work Phone: [facility] 03-08-2021 08:26-0500 Body height 172.72 cm Eben Bisi Armandocel Work Phone: [facility] Work Phone: 03-08-2021 08:26-0500 Body mass index (BMI) [Ratio] 25.26 kg/m2 Eben Mathews Stencel Work Phone: [facility] Work Phone: 03-08-2021 08:26-0500 Body surface area Derived from formula 1.89 m2 Eben Robertscel Work Phone: [facility] Work Phone: 03-08-2021 08:26-0500 Body temperature 97.8 [degF] Eben Robertscel Work Phone: [facility] Work Phone: 03-08-2021 08:26-0500 Body weight 75.36 kg Eben Robertscel Work Phone: [facility] Work Phone: 03-08-2021 08:26-0500 Diastolic blood pressure 64 mm[Hg] Eben Mathews Stencel Work Phone: [facility] Work Phone: 03-08-2021 08:26-0500 Heart rate 60 /min Eben Robertscel Work Phone: [facility] Work Phone: 03-08-2021 08:26-0500 SaO2% (BldA) [Mass fraction] 98 % Eben Robertscel Work Phone: [facility] Work Phone: 03-08-2021 08:26-0500 Systolic blood pressure 112 mm[Hg] Eben Mathews Stencel Work Phone: [facility] Work Phone: 02-22-2021 07:59-0500 Body temperature 98.01 [degF] Mel Paul DPM Work Phone: [facility] 02-22-2021 07:59-0500 Diastolic blood pressure 70 mm[Hg] Mel Paul DPM Work Phone: [facility] 02-22-2021 07:59-0500 Heart rate 67 /min Mel Paul DPM Work Phone: [facility] 02-22-2021 07:59-0500 Systolic blood pressure 134 mm[Hg] Mel Paul DPM Work Phone: [facility] 01-18-2021 18:06-0500 Body height 172.7 cm Eben Vo Other Phone: [facility] 01-18-2021 18:06-0500 Body temperature 98.24 [degF] Eben Stencel Other Phone: [facility] 01-18-2021 18:06-0500 Body weight 69.1 kg Eben Robertscel Other Phone: [facility] 01-18-2021 18:06-0500 Diastolic blood pressure 76 mm[Hg] Eben Stencel Other Phone: [facility] 01-18-2021 18:06-0500 Heart rate 67 /min Eben Stencel Other Phone: [facility] 01-18-2021 18:06-0500 Respiratory rate 18 /min Eben Robertscel Other Phone: [facility] 01-18-2021 18:06-0500 SaO2% (BldA) [Mass fraction] 95 % Eben Robertscel Other Phone: [facility] 01-18-2021 18:06-0500 Systolic blood pressure 152 mm[Hg] Eben Robertscel Other Phone: [facility] 12-21-2020 08:16-0400 Body temperature 98.1 [degF] Mel Paul DPM Work Phone: [facility] 12-21-2020 08:16-0400 Diastolic blood pressure 68 mm[Hg] Mel Paul DPM Work Phone: [facility] 12-21-2020 08:16-0400 Heart rate 60 /min Mel Paul DPM Work Phone: [facility] 12-21-2020 08:16-0400 Systolic blood pressure 120 mm[Hg] Mel Paul DPM Work Phone: [facility] 11-23-2020 09:04-0400 Body temperature 98.4 [degF] Mel Paul DPM Work Phone: [facility] 11-23-2020 09:04-0400 Diastolic blood pressure 56 mm[Hg] Mel Paul DPM Work Phone: [facility] 11-23-2020 09:04-0400 Heart rate 65 /min Mel Beverly DPM Work Phone: [facility] 11-23-2020 09:04-0400 Systolic blood pressure 118 mm[Hg] Mel Paul DPM Work Phone: [facility] 07-19-2020 23:35-0400 Diastolic blood pressure 70 mm[Hg] Eben Stencel Other Phone: [facility] 07-19-2020 23:35-0400 Heart rate 62 /min Eben Stencel Other Phone: [facility] 07-19-2020 23:35-0400 Respiratory rate 16 /min Eben Stencel Other Phone: [facility] 07-19-2020 23:35-0400 SaO2% (BldA) [Mass fraction] 97 % Eben Stencel Other Phone: [facility] 07-19-2020 23:35-0400 Systolic blood pressure 106 mm[Hg] Eben Stencel Other Phone: [facility] 07-19-2020 18:48-0400 Body height 175.2 cm Eben Stencel Other Phone: [facility] 07-19-2020 18:48-0400 Body temperature 97.88 [degF] Eben Stencel Other Phone: [facility] 07-19-2020 18:48-0400 Body weight 69.1 kg Eben Stencel Other Phone: [facility] 02-18-2019 17:04-0500 BMI (Body Mass Index) 26.03 kg/m2 Lavelle Boone [facility] Work Phone: 02-18-2019 17:04-0500 Body Temperature 97.3 [degF] Lavelle Boone [facility] Work Phone: 02-18-2019 17:04-0500 Body weight 75.39 kg Lavelle Boone -[facility] Work Phone: 02-18-2019 17:04-0500 BP Diastolic 62 mm[Hg] Lavelle Boone -[facility] Work Phone: 02-18-2019 17:04-0500 BP Systolic 106 mm[Hg] Lavelle Boone -[facility] Work Phone: 02-18-2019 17:04-0500 BSA (Body Surface Area) 1.87 m2 Lavelle Boone -[facility] Work Phone: 02-18-2019 17:04-0500 Height 170.18 cm Lavelle Boone -[facility] Work Phone: 02-18-2019 17:04-0500 Pulse (Heart Rate) 46 /min Lavelle Boone [facility] Work Phone: 02-18-2019 17:04-0500 Pulse Oximetry 97 % Lavelle Boone -[facility] Work Phone: 01-08-2019 10:09-0500 BMI (Body Mass Index) 25.8 kg/m2 Lavelle Boone -[facility] Work Phone: 01-08-2019 10:09-0500 Body weight 76.98 kg Lavelle Boone -[facility] Work Phone: 01-08-2019 10:09-0500 BP Diastolic 60 mm[Hg] Lavelle Boone -[facility] Work Phone: 01-08-2019 10:09-0500 BP Systolic 106 mm[Hg] Lavelle Boone [facility] Work Phone: 01-08-2019 10:09-0500 BSA (Body Surface Area) 1.91 m2 Lavelle Boone [facility] Work Phone: 01-08-2019 10:09-0500 Height 172.72 cm Lavelle Boone [facility] Work Phone: 01-08-2019 10:09-0500 Pulse (Heart Rate) 48 /min Andriybalayulisa Boone [facility] Work Phone: Encounters Encounter Date Encounter Type Care Provider Facility Start: 04-03-2023 End: 04-07-2023 ambulatory MEL PAUL [facility] at[facility] Start: 04-03-2023 End: 04-03-2023 Office outpatient visit 15 minutes Mel Paul DPM Work Phone: [facility] Procedures Date Procedure Procedure Detail Performing Clinician Start: 04-03-2023 NURSING COMMUNICATIO N- RITUXAN REACTION Mel Paul DPM Work Phone: Start: 03-18-2023 FOLLOW UP IN FAMILY MEDICINE LAVELLE BOONE Start: 02-12-2023 NM HEPATOBILIARY W CHOLECYSTOKININ EBEN [...] 09-28-2031 Screening for malignant neoplasm of colon [facility] Start: 09-26-2031 Screening for malignant neoplasm of colon [facility] Start: 04-29-2027 DTaP/Tdap/Td Vaccines (2 - Td or Tdap) DTaP/Tdap/Td Vaccines (2 - Td or Tdap) [facility] Start: 04-29-2027 Tetanus vaccination Tetanus: Every 10yrs [facility] Start: 02-21-2027 Lipid panel Lipid Panel [facility] Start: 04-03-2024 CLASS III : OFFICE VISIT CLASS III : OFFICE VISIT [facility] Start: 03-18-2024 History and physical examination, annual for health maintenance Wellness Visit [facility] Start: 03-06-2024 Creatinine measurement Creatinine Level [facility] Start: 03-06-2024 Potassium measurement Potassium Level [facility] Start: 02-28-2024 Echocardiography Echocardiogram [facility] Start: 01-25-2024 Creatinine measurement Creatinine Level [facility] Start: 01-25-2024 Potassium measurement Potassium Level [facility] Start: 11-28-2023 Thyroid stimulating hormone measurement TSH Level [facility] Start: 11-21-2023 Echocardiography Echocardiogram [facility] Start: 09-16-2023 End: 09-16-2023 Patient encounter procedure 09/16/2023 9:20 AM EDT Office Visit [facility] [address] [place] [address] Eben Vo MD [address] [place] [address] [facility] Start: 05-01-2023 End: 05-01-2023 Patient encounter procedure 05/01/2023 8:30 AM EDT Office Visit [facility] [address] [place] [address] Mel Paul, GABBI [address] [place] [address] [facility] Start: 03-20-2023 End: 03-20-2023 Patient encounter procedure 03/20/2023 9:45 AM EST Office Visit [facility] [address] [place] [id number] Chris Cazares DO [address] [facility], [place] [id number] [facility] Start: 03-18-2023 End: 03-18-2023 Patient encounter procedure 03/18/2023 9:00 AM EST Office Visit [facility] [address] [place] [address] Eben Vo MD [address] [place] [address] [facility] Start: 03-11-2023 End: 03-11-2023 Patient encounter procedure [facility] Start: 03-09-2023 Medicare Annual Wellness Visit Medicare Annual Wellness Visit (AWV) [facility] Start: 01-17-2023 End: 01-17-2023 Patient encounter procedure 01/17/2023 1:00 PM EST Appointment [facility] [address] [place] [address] [facility] Start: 01-16-2023 End: 01-16-2023 Patient encounter procedure 01/16/2023 2:30 PM EST Office Visit [facility] [address] [place] [phone] Chris Cazares DO [address] [facility], [address] [place] [id number] [facility] Start: 01-16-2023 End: 01-17-2024 US Abdomen US abdomen complete Imaging Routine Abdominal bloating Expected: 01/16/2023, Expires: 01/17/2024 [facility] Service Area Work Phone: Immunizations Immunization Date Immunization Notes Care Provider Fa cili 12-04-2022 Flu vaccine, quadrivalent, high-dose, preservative free, age 65y+ (FLUZONE) Eben Vo MD Work Phone: [facility] 11-23-2021 Fluad Quadrivalent 0 .5 ML Intramuscular Prefilled Syringe Eben Vo Work Phone: [facility] Work Phone: Payers Date Payer Category Payer Medicare AETNA MEDICARE A ETNA MEDICARE PPO [id number] 2021-Present [phone] [address] [place] [address] [facility] [id number] 2017 Private Health Insurance 2017 Medicare [place] AETNA MEDICARE PLAN (PPO) [id number] 2017-Present [phone] [address] [place] [address] [id number] 2017 Medicare [id number] 2017 Medicare [id number] 2016 Unknown 1950 Unknown [id number] 2.16.840.1.296324.3.579.2.7 17 1950 Unknown [id number] 2.16.840.1.044657.3.579.2.7 17 1950 Unknown [id number] 2.16.840.1.553718.3.579.2.9 03 1950 Unknown [id number] 2.16.840.1.040131.3.579.2.9 03 1950 Unknown [id number] 2.16.840.1.080913.3.579.2.1 069 1950 Unknown [id number] 2.16.840.1.264671.3.579.2.1 245 1950 Unknown [id number] 2.16.840.1.085317.3.579.2.1 243 1951 Unknown [id number] 2.16.840.1.402348.3.579.2.1 243 1951 Unknown [id number] 2.16.840.1.838394.3.579.2.1 244 1951 Unknown [id number] 2.16.840.1.389775.3.579.2.1 244 1951 Unknown [id number] 2.16.840.1.031937.3.579.2.1 244 1951 Unknown [id number] 2.16.840.1.895436.3.579.2.1 244 1951 Unknown [id number] 2.16.840.1.100885.3.579.2.1 244 1951 Unknown [id number] 2.16.840.1.279524.3.579.2.9 03 1950 Unknown [id number] 2.16.840.1.469837.3.579.2.9 03 1950 Unknown [id number] 2.16.840.1.528261.3.579.2.9 03 1950 Unknown [id number] 2.16.840.1.490233.3.579.2.9 03 1950 Unknown [id number] 2.16.840.1.473144.3.579.2.9 03 1950 Unknown [id number] 2.16.840.1.523014.3.579.2.9 03 1950 Unknown [id number] 2.16.840.1.371888.3.579.2.9 03 1950 Unknown [id number] 2.16.840.1.847068.3.579.2.9 03 1950 Unknown [id number] 2.16.840.1.672033.3.579.2.9 03 1950 Unknown [id number] 2.16.840.1.523960.3.579.2.9 03 Social History Date Type Detail Facility Start: 08-13-2017 Tobacco smoking status NDIS Unknown if ever smoked [facility] Start: 1950 Sex Assigned At Not on file [facility] Start: 11-20-2020 End: 07-12-2021 Tobacco smoking status NDIS Never smoked tobacco [facility] Start: 11-20-2020 Tobacco use and exposure Smokeless tobacco non-user [facility] Start: 11-20-2020 End: 04-03-2023 Alcohol intake Current drinker of alcohol (finding) [facility] Start: 11-20-2020 History SDOH Alcohol Comment occasionally [facility] Start: 04-01-2021 End: 03-18-2023 Exposure to SARS-CoV-2 (event) Not sure [facility] Start: 04-05-2021 End: 10-31-2022 Consumes alcohol Consumes alcohol [facility] Work Phone: Start: 11-20-2020 End: 07-12-2021 Tobacco use and exposure User of smokeless tobacco [facility] Start: 03-28-2021 End: 07-12-2021 Tobacco Comment does use chew tobacco ( 1 pouch every 2 to 3 weeks ) [facility] Start: 01-22-2021 Alcohol intake Ex-drinker (finding) [facility] Start: 08-01-2022 End: 10-31-2022 Tobacco use panel [facility] History of tobacco use Passive smoker [facility] Work Phone: History of tobacco use Chews Tobacco [facility] Work Phone: Start: 12-13-2022 Tobacco use and exposure Former smokeless tobacco user [facility] Work Phone: Start: 12-13-2022 Alcohol Comment occasional [facility] Work Phone: NEGATED: Highlighted row - - [facility] Work Phone: Medical Equipment Procedure Code Equipment Code Equipment Origin al Text Equipment Identifier Dates Lens, Intraocula r [id number] 12.0 Case [id number] Start: 01-20-2020 Functional Status Date Assessment Result Facility NEGATED: Highlighted row Functional performance Functional status health issues are not documented [facility] Work Phone: Mental Status Date Assessment Result Facility NEGATED: Highlighted row Cognitive function [Interpretation] Cognitive status health issues are not documented [facility] Work Phone: Clinical Notes 02-28-2020 to 04-03-2023 Mel Paul DPM - 04/03/2023 5:32 PM Jakob Vo MD - 03/18/2023 9:00 AM Yared Cazares, DO - 01/16/2023 2:30 PM Yared Cazares, DO - 01/16/2023 2:30 PM EST Note Date & Type Note Facility 04-03-2023 History of Presen t illness Narrative Patient: Chasity Pino Date of : 1950 (72 y.o.) PCP: Eben Vo MD Procedures I debrided the toenails 1 through 5 bilateral feet with nail nippers. I debrided the calluses off the fifth metatarsal bases and the plantar aspect of the right heel. ASSESSMENT/PLAN: Chasity Pino 72 y.o. male with history of new inferior calcaneal spur on the right foot. History of bilateral flatfoot deformity with bone spurs the fifth metatarsal bases. 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 Onychomycosis great toenails bilateral feet. Plan: I prescribed dispensed 1 pair of heel cushions to be worn for both feet. I also prescribed urea cream to apply the calluses twice daily. Patient to reappoint in 3 months. Assessment & plan notes cannot be loaded without a specified hospital service. SUBJECTIVE: History Since Last Visit: Patient is 72-year-old male who presents the office with new onset of right heel pain. Patient relates he has had a bout of cardiomyopathy due to a virus. Patient is currently on anticoagulant therapy. Patient recently underwent a cardioversion for atrial fibs. Patient relates his heart is doing much better. Patient like to have his toenails trimmed today as well as his calluses of both feet. Review of Systems: OBJECTIVE: Physical Examination: Integument-there is a focal callus to the plantar aspect of the right heel corresponding to the heel spur noted on x-ray. There is also calluses on the lateral aspect the fifth metatarsal base of both feet. Hallux toenails are thick yellow dystrophic crumbly painful subungual debris. Neuro-intact bilateral feet. Musculoskeletal-patient has pain on palpation on the plantar aspect of the right calcaneal tubercle corresponding to his heel spur. Patient has decreased medial longitudinal arch in both feet. Right tarsometatarsal joint is stiff from previous injury and arthritis. Vascular-DP PT pulse are 1 of 4 bilateral feet. BP 111/66 (BP Location: Right arm, Patient Position: Sitting, BP Cuff Size: Adult) Pulse (!) 54 Temp 97.1 F (36.2 C) (Temporal) Laboratory and Additional Data Reviewed: Reviewed:[id number]} XR Calcaneus Right 2+ Views (Standard) Xray right heel - There is inferior calcaneal spur. Decreased medial longitudinal arch documented in this encounter [facility] 03-18-2023 History of Presen t illness Narrative Subjective Reason for Visit: Chasity Pino is an 72 y.o. male here for a Medicare Wellness visit. Past Medical, Surgical, and Family History reviewed and updated in chart. Reviewed all medications by prescribing practitioner or clinical pharmacist (such as prescriptions, OTCs, herbal therapies and supplements) and documented in the medical record. HPI since last visit he has been had a number of cardiology visits regarding his nonischemic cardiomyopathy. Fortunately in 3 months ejection fraction has improved to 40%. He is resuming a more typical activity. They have decreased the Lasix had a single shock cardioversion to return and maintain sinus rhythm now on amiodarone. They have added Farxiga. They discussed using an JOHNY but have decided against starting. He complains of a lot of belching which I reviewed as swallowed air but has had enough dyspepsia that Dr. Cazares has ordered an ultrasound and a HIDA. Although the EF was normal the findings of uptake suggest chronic cholecystitis and he is been referred to Dr. Werner for consultation. Here today with Black as well as his . Patient Care Team: Eben Vo MD as PCP - General Eben Vo MD as PCP - [employer] Medicare Advantage PCP Lucille Gerard RN as Loan Teller (Case Management) Review of Systems General-no fatigue weight to within 10 pounds ENT no problems with vision swallowing Cardiac no chest pains palpitations change in exercise tolerance or capacity Pulmonary no cough shortness of breath GI no heartburn or abdominal pain but a lot of belching and flatus Musculoskeletal no joint pains Objective Vitals: Pulse (!) 47 Ht 1.727 m (5' 8 ) Wt 75.1 kg (165 lb 9.6 oz) SpO2 94% BMI 25.18 kg/m Physical Exam No bruit thyroid nontender. Heart regular without murmur. Lungs clear to auscultation. No edema in the extremities. Assessment/Plan Problem List Items Addressed This Visit Atrial fibrillation (CMS/HCC) Overview Last Assessment & Plan: Chronic, heart rate controlled. On xarelto. Unable to tolerate beta blockers Non-ischemic cardiomyopathy (CMS/HCC) Other Visit Diagnoses Routine general medical examination at health care facility - Primary Dyspepsia Atrial fibrillation is now converted to sinus rhythm. Nonischemic cardiomyopathy as outlined above Will follow-up in 6 months with either myself or Dr. Boone just to touch base and make sure there is not something we need to follow him more closely for documented in this encounter [facility] Work Phone: 02-11-2023 Note HNO ID: [id number] Author: Raul Rivera MD Service: ? Author [...] staff. I have seen and examined Chasity Pino. I have discussed the examination findings, diagnosis, and treatment options with Chasity Pino and/or his family. I have also reviewed and agree with the assessment and plan as stated above and agree with all its relevant components. I gave the patient the opportunity to ask questions about the findings, diagnosis, and treatment options. Raul Rivera MD [facility] 01-16-2023 History of Presen t illness Narrative Subjective Patient ID: Chasity Pino Rl is a 72 y.o. male who [...] such as belching and flatulence ). HPI Rl is an unfortunate 72-year-old male recent diagnosed [...] results by telephone documented in this encounter [facility] Work Phone: 12-13-2022 History of Presen t illness Narrative Subjective Patient ID: Rl Pino is a 72 y.o. male who presents [...] Codes Dyspepsia R10.13 documented in this encounter [facility] Work Phone: 11-01-2022 History of Presen t illness Narrative Subjective Patient ID: Chasity Pino is a 72 y.o. male who presents [...] rate control Review of Systems As per HPI Objective BP 120/72 Pulse 58 Ht 1.727 [...] if not 100% documented in this encounter [facility] Work Phone: 10-31-2022 History of Presen t illness Narrative Patient: Chasity Pino Date of : 1950 (72 y.o.) PCP: Eben Vo MD Procedures ASSESSMENT/PLAN: Chasity Pino 72 y.o. male with history of status [...] C) (Infrared) Laboratory and Additional Data Reviewed: Reviewed:[id number]} XR Calcaneus Left 2+ Views (Standard) X-rays 2 views left heel: There is a slight varus tilt of the calcaneus. Patient has a decreased medial longitudinal arch documented in this encounter [facility] 10-17-2022 History of Presen t illness Narrative Patient: Chasity Pino Date of : 1950 (72 y.o.) PCP: [...] a Band-Aid daily until healed. ASSESSMENT/PLAN: Chasity Pino 72 y.o. male with history of painful [...] C) (Infrared) Laboratory and Additional Data Reviewed: Reviewed:[id number]} XR Calcaneus Left 2+ Views (Standard) X-rays 2 views left heel: There is a slight varus tilt of the calcaneus. Patient has a decreased medial longitudinal arch documented in this encounter [facility] 10-15-2022 History of Presen t illness Narrative Subjective Patient ID: Chasity Pino is a 72 y.o. male who presents for GERD. HPI Follows with Cardiology in [place] Aching in epigastric area, Some LEMUS and [...] mg EC tablet documented in this encounter [facility] Work Phone: 08-01-2022 History of Presen t illness Narrative Patient: Chasity Pino Date of : 1950 (72 y.o.) PCP: Eben Vo MD Procedures I debrided toenails 2 through 5 on the right foot and 1 through 5 on the left foot with nail nippers ASSESSMENT/PLAN: Chasity Pino 72 y.o. male with history of callus [...] C) (Infrared) Laboratory and Additional Data Reviewed: Reviewed:[id number]} XR Calcaneus Left 2+ Views (Standard) X-rays 2 views left heel: There is a slight varus tilt of the calcaneus. Patient has a decreased medial longitudinal arch documented in this encounter [facility] 05-09-2022 History of Presen t illness Narrative Patient: Chasity Pino Date of : 1950 (71 y.o.) PCP: Eben Vo MD Procedures ASSESSMENT/PLAN: Chasity Pino 71 y.o. male with history of recurrent [...] C) (Infrared) Laboratory and Additional Data Reviewed: Reviewed:[id number]} XR Foot Right 3+ Views (Standard) X-rays [...] medial longitudinal arch documented in this encounter [facility] 01-31-2022 History of Presen t illness Narrative Patient: Chasity Pino Date of : 1950 (71 y.o.) PCP: Eben Vo MD Procedures I debrided toenails 2 through 5 bilateral feet with nail nippers. ASSESSMENT/PLAN: Chasity Pino 71 y.o. male with history of painful [...] lesion with pinpoint bleeders and pain on tqvy-ca-atbi squeeze test on the plantar aspect of the right heel. 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 Vascular-DP and PT pulses are palpable bilateral feet. BP 133/75 (BP Location: Left arm, Patient Position: Sitting, BP Cuff Size: Adult) Pulse 61 Temp 98.8 F (37.1 C) (Infrared) Laboratory and Additional Data Reviewed: Reviewed:[id number]} XR Foot Right 3+ Views (Standard) X-rays [...] medial longitudinal arch documented in this encounter [facility] 01-03-2022 History of Presen t illness Narrative Patient: Chasity Pino Date of : 1950 (71 y.o.) PCP: Eben Vo MD Procedures ASSESSMENT/PLAN: Chasity Pino 71 y.o. male with history of verruca [...] foot with pinpoint bleeders and pain on ikhx-vi-dpil squeeze test consistent with verruca. The fifth [...] C) (Infrared) Laboratory and Additional Data Reviewed: Reviewed:[id number]} XR Foot Right 3+ Views (Standard) X-rays [...] medial longitudinal arch documented in this encounter [facility] 08-02-2021 History of Presen t illness Narrative Patient: Chasity Pino Date of : 1950 (71 y.o.) PCP: Eben Vo MD Procedures ASSESSMENT/PLAN: Chasity Pino 71 y.o. male with history of painful [...] of the skin lines and pain with nqcq-ot-rusj squeeze test for the verruca Neuro-intact bilateral feet Musculoskeletal-decreased medial longitudinal arch bilateral feet with osteoarthritis of the right tarsometatarsal Vascular-DP and PT pulses palpable bilateral feet BP 107/64 (BP Location: Left arm, Patient Position: Sitting, BP Cuff Size: Adult) Pulse (!) 57 Temp 98 F (36.7 C) (Oral) Laboratory and Additional Data Reviewed: Reviewed:[id number]} XR Foot Right 3+ Views (Standard) X-rays [...] medial longitudinal arch documented in this encounter [facility] 07-12-2021 History of Presen t illness Narrative Patient: Chasity Pino Date of : 1950 (71 y.o.) PCP: Eben Vo MD Procedures ASSESSMENT/PLAN: Chasity Pino 71 y.o. male with history of resolved [...] papillomatous with pinpoint bleeders and pain on oeaz-nb-ntdx squeeze test on the bottom of the right heel. The lesions of the left foot have resolved. Neuro-intact bilateral feet Musculoskeletal-stiffness and swelling of the right ankle Vascular-DP and PT pulses are palpable bilateral feet BP 108/60 (BP Location: Right arm, Patient Position: Sitting, BP Cuff Size: Adult) Pulse (!) 44 Temp 97.9 F (36.6 C) (Infrared) Laboratory and Additional Data Reviewed: Reviewed:[id number]} XR Foot Right 3+ Views (Standard) X-rays [...] medial longitudinal arch documented in this encounter [facility] 06-21-2021 History of Presen t illness Narrative Patient: Chasity Pino Date of : 1950 (71 y.o.) PCP: Eben Vo MD Procedures ASSESSMENT/PLAN: Chasity Pino 71 y.o. male with history of recurrent [...] Patient is in need of some new qsdf-ufe-gfnvtyd orthotics so I told him to go to [facility] for a new set. Review of [...] C) (Oral) Laboratory and Additional Data Reviewed: Reviewed:[id number]} XR Foot Right 3+ Views (Standard) X-rays [...] medial longitudinal arch documented in this encounter [facility] 2021 History of Presen t illness Narrative Patient: Chasity Pino Date of : 1950 (71 y.o.) PCP: Eben Vo MD Procedures ASSESSMENT/PLAN: Chasity Pino 71 y.o. 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 OBJECTIVE: Physical Examination: Integument-there is a white papillomatous lesion with a pinpoint bleeders and pain on fqgi-co-svmi squeeze test on the bottom of the [...] C) (Oral) Laboratory and Additional Data Reviewed: Reviewed:[id number]} XR Foot Right 3+ Views (Standard) X-rays [...] medial longitudinal arch documented in this encounter [facility] 05-10-2021 History of Presen t illness Narrative Patient: Chasity Pino Date of : 1950 (70 y.o.) PCP: Eben Vo MD Procedures ASSESSMENT/PLAN: Chasity Pino 70 y.o. male with history of status [...] C) (Oral) Laboratory and Additional Data Reviewed: Reviewed:[id number]} XR Foot Right 3+ Views (Standard) X-rays 3 views right foot: There is been excision of the fifth metatarsal base exostosis lateral plantarly. Patient's had past tarsometatarsal joint fusion documented in this encounter [facility] 04-19-2021 History of Presen t illness Narrative Patient: Chasity Pino Date of : 1950 (70 y.o.) PCP: Eben Vo MD Procedures ASSESSMENT/PLAN: Chasity Pino 70 y.o. male with history of status [...] C) (Oral) Laboratory and Additional Data Reviewed: Reviewed:[id number]} XR OR Foot Rt 2 Views Narrative: [...] Workstation ID: [id number] documented in this encounter [facility] 04-13-2021 Note Addended by: MEL PARKER on: 04/13/2021 07:40 AM Modules accepted: Orders [facility] 04-13-2021 Miscellaneous Notes Addended by: MEL PAUL on: 04/13/2021 07:40 AM Modules accepted: Orders documented in this encounter [facility] 04-05-2021 History of Presen t illness Narrative Podiatry Outpatient H&P 04/05/2021 Mel Paul DPM @[email or web address]@ Patient: Chasity Pino Date of : 1950 (70 y.o.) P[facility]: [facility] ASSESSMENT/PLAN: Chasity Pino 70 y.o. male with history of exostosis [...] right foot History of Present Illness: Chasity Pino is a 70 y.o. male presenting from [...] 9:01 AM: Radiology documented in this encounter [facility] 04-05-2021 History of Presen t illness Narrative Podiatry Outpatient H&P 04/05/2021 Mel Paul DPM @HOSPITALNAME@ Patient: Chasity Pino Date of : 1950 (70 y.o.) PCP: Eben Vo MD @[facility]@ ASSESSMENT/PLAN: Chasity Pino 70 y.o. male with history of exostosis [...] right foot History of Present Illness: Chasity Pino is a 70 y.o. male presenting from [...] 9:01 AM: Radiology documented in this encounter [facility] 02-22-2021 History of Presen t illness Narrative Patient: Chasity Pino Date of : 1950 (70 y.o.) PCP: Eben Vo MD Procedures ASSESSMENT/PLAN: Chasity Pino 70 y.o. male with history of exostosis [...] C) (Oral) Laboratory and Additional Data Reviewed: Reviewed:[id number]} XR Foot Right 3+ Views (Standard) X-rays 3 views right foot. Patient has significant degenerative changes throughout the fourth and fifth metatarsal base cuboid joint. Patient has an inferior calcaneal heel spur and a decreased medial longitudinal arch. No signs of stress fracture. documented in this encounter [facility] 12-21-2020 History of Presen t illness Narrative Patient: Chasity Pino Date of : 1950 (70 y.o.) PCP: Eben Vo MD ASSESSMENT/PLAN: Chasity Pino 70 y.o. 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 I recommended patient see [facility] for any new pairs. Continue with [...] C) (Infrared) Laboratory and Additional Data Reviewed: Reviewed:[id number]} XR Foot Right 3+ Views (Standard) X-rays 3 views right foot. Patient has significant degenerative changes throughout the fourth and fifth metatarsal base cuboid joint. Patient has an inferior calcaneal heel spur and a decreased medial longitudinal arch. No signs of stress fracture. documented in this encounter [facility] 11-23-2020 History of Presen t illness Narrative Patient: Chasity Pino Date of : 1950 (70 y.o.) PCP: Eben Vo MD ASSESSMENT/PLAN: Chasity Pino 70 y.o. male with history of degenerative [...] C) (Infrared) Laboratory and Additional Data Reviewed: Reviewed:[id number]} XR Foot Right 3+ Views (Standard) X-rays 3 views right foot. Patient has significant degenerative changes throughout the fourth and fifth metatarsal base cuboid joint. Patient has an inferior calcaneal heel spur and a decreased medial longitudinal arch. No signs of stress fracture. documented in this encounter [facility] documented as of this encounter (statuses as of 07/25/2021) [facility] Post-traumatic arthritis of right foot- Primary Plantar fasciitis of right foot Onychomycosis of toenail [facility] Diagnosis Post-traumatic osteoarthritis of right foot- Primary Pes planovalgus Other congenital valgus deformity of feet Onychomycosis Dermatophytosis of nail [facility] Diagnosis Exostosis of right foot- Primary Onychomycosis Dermatophytosis of nail Pain in right toe(s) [facility] Diagnosis Exostosis of right foot- Primary Onychomycosis Dermatophytosis of nail Pain in right toe(s) [facility] Diagnosis Pre-op testing- Primary Unspecified pre-operative examination Pre-op testing Unspecified pre-operative examination Exostosis of right foot Pain in right toe(s) Pre-op testing Unspecified pre-operative examination Exostosis of right foot Pain in right toe(s) [facility] Pre-op testing Unspecified pre-operative examination Exostosis of right foot Pain in right toe(s) Exostosis of right foot- Primary Onychomycosis Dermatophytosis of nail Callus of foot Corns and callosities Pre-op testing Unspecified pre-operative examination Exostosis of right foot Pain in right toe(s) [facility] Exostosis of right foot- Primary Onychomycosis Dermatophytosis of nail Callus of foot Corns and callosities [facility] Diagnosis No post-op complications- Primary [facility] Diagnosis Posterior tibial tendonitis, right- Primary Posterior tibial tendonitis, right [facility] Diagnosis Plantar warts- Primary Plantar wart Pain in left foot Pain in soft tissues of limb [facility] Diagnosis Verruca vulgaris- Primary Viral warts, unspecified Arthritis of right foot Pain in left foot Pain in soft tissues of limb [facility] Diagnosis Verrucae vulgaris- Primary Viral warts, unspecified Pain in right foot Pain in soft tissues of limb [facility] Diagnosis Patient left without being seen- Primary Surgical or other procedure not carried out because of patient's decision [facility] Diagnosis Onychomycosis- Primary Dermatophytosis of nail Verrucae vulgaris Viral warts, unspecified Pain of toe of right foot [facility] Diagnosis Onychomycosis- Primary Dermatophytosis of nail Verrucae vulgaris Viral warts, unspecified Pain in toe of right foot Pain in soft tissues of limb Pain in right foot [M79.671 (ICD-10-CM)] Pain in soft tissues of limb [facility] Diagnosis Exostosis of left foot- Primary Callus of foot Corns and callosities [facility] Diagnosis Callus of foot- Primary Corns and callosities Acquired left hindfoot varus Exostosis Exostosis of unspecified site Pain of toe of right foot [M79.674] Onychomycosis [B35.1] Dermatophytosis of nail [facility] Diagnosis Chest wall pain- Primary Painful respiration Longstanding persistent atrial fibrillation (CMS/HCC) Dyspepsia Dyspepsia and other specified disorders of function of stomach documented in this encounter [facility] Work Phone: [phone] note* Diagnosis Verrucae vulgaris- Primary Viral warts, unspecified Pain in left foot Pain in soft tissues of limb [facility] Diagnosis Corns- Primary Corns and callosities Verrucae vulgaris Viral warts, unspecified Exostosis Exostosis of unspecified site [facility]* Diagnosis Longstanding persistent atrial fibrillation (CMS/HCC)- Primary Dyspepsia Dyspepsia and other specified disorders of function of stomach documented in this encounter [facility] Work Phone: [phone] note* Diagnosis Non-ischemic cardiomyopathy (CMS/HCC)- Primary Other primary cardiomyopathies Longstanding persistent atrial fibrillation (CMS/HCC) Dyspepsia Dyspepsia and other specified disorders of function of stomach documented in this encounter [facility] Work Phone: [phone] note* Diagnosis Abdominal bloating- Primary Flatulence, eructation, and gas pain documented in this encounter [facility] Work Phone: [phone] note* Diagnosis Abdominal bloating Flatulence, eructation, and gas pain documented in this encounter [facility] Work Phone: [phone] note* Diagnosis Abdominal bloating Flatulence, eructation, and gas pain documented in this encounter [facility] Work Phone: [phone] note* Diagnosis Abdominal bloating Flatulence, eructation, and gas pain documented in this encounter [facility] Work Phone: [phone] note* Diagnosis Routine general medical examination at health care facility- Primary Routine general medical examination at a [facility] care facility Longstanding persistent atrial fibrillation (CMS/HCC) Dyspepsia Dyspepsia and other specified disorders of function of stomach Non-ischemic cardiomyopathy (CMS/HCC) Other primary cardiomyopathies documented in this encounter [facility] Work Phone: Evaluation note* Diagnosis Callus of foot- Primary Corns and callosities Exostosis of left foot Heel spur, right Onychomycosis [B35.1] Dermatophytosis of nail Exostosis of right foot Toe pain, bilateral [M79.674, M79.675] documented in this encounter [facility] Present illness Narrative* The patient is [...] again in the next month * Seen [facility] in November, taking Xarelto, testing shows 100% atrial fibrillation, not aware * + pain in foot and ankles, planning to do TKR at some point [facility] Work Phone: reason for referral (narrative)* Consultation (Routine) - Authorized Specialty Diagnoses / Procedures Referred By Contac t Referred To Contact Primary Care Diagnoses Longstanding persistent atrial fibrillation (CMS/HCC) Dyspepsia Procedures Follow Up In Primary [place] [address] [place], [place] [id number] Referral ID Status Reason Start Date Expiration Date V isits Requested Visits Authorized [id number] Authorized 11/01/2022 04/30/2023 1 1 * Consultation (Routine) - Authorized Specialty Diagnoses / Procedures Referred By Contrashard t Referred To Contact Gastroenterology Diagnoses Dyspepsia Procedures IA OFFICE/OUTPATIENT NEW HIGH MDM 60-74 MINUTES Eben Vo MD [address] [place], [place] [id number] Referral ID Status Reason Start Date Expiration Date Visits Requested Visits Authorized [id number] Authorized Specialty Services Required 11/01/2022 04/30/2023 1 1 [facility] Work Phone: Reason for referral (narrative)* Consultation (Routine) - Authorized Specialty Diagnoses / Procedures Referred By Holger t Referred To Contact Primary Care Diagnoses Longstanding persistent atrial fibrillation (CMS/HCC) Dyspepsia Non-ischemic cardiomyopathy (CMS/HCC) Procedures Follow Up In Primary Care Eben Vo MD [address] [place] [address] Referral ID Status Reason Start Date Expiration Date V isits Requested Visits Authorized [id number] Authorized 12/13/2022 12/13/2023 1 1 [facility] Work Phone: Reason for referral (narrative)* Consultation (Routine) - Authorized Specialty Diagnoses / Procedures Referred By Contac t Referred To Contact Primary Care Diagnoses Longstanding persistent atrial fibrillation (CMS/HCC) Dyspepsia Non-ischemic cardiomyopathy (CMS/HCC) Routine general medical examination at health care facility Procedures Follow Up In Primary Care Eben Vo MD [address] [place] [address] Referral ID Status Reason Start Date Expiration Date V isits Requested Visits Authorized [id number] Authorized 03/18/2023 03/17/2024 1 1 [facility] Work Phone: Assessments Diagnosis Carpal tunnel syndrome, [...] FoundDocuments on File Type Date Recorded Patient Floors Buffer Expl anation Advance Directives and Living Will Documents on File Type Date Recorded Patient Floors Buffer Expl anation Advance Directives and Livin g Will 03/21/2021 2:51 PM Documents on File Type Date Recorded Patient Floors Buffer Expl anation Advance Directives and Livin g [...] Referral Specialty Diagnoses / Procedures Referred By Holger thornton Referred To Contact Radiology Diagnoses Abdominal bloating Procedures US abdomen complete Eben Vo MD [address] [place] [address] Referral ID Status Reason Start Date Expiration Date Visits Requested Visits Authorized [id number] Authorized Perform Procedure 3 01/16/2024 1 1 Specialty Diagnoses / Procedures Referred By Holger thornton Referred To Contact Radiology Diagnoses Abdominal bloating Procedures NM hepatobiliary w cholecystokinin Eben Vo MD [address] [place], [place] [id number] Referral ID Status Reason Start Date Expiration Date Visits Requested Visits Authorized [id number] Pending Review Perform Procedure 3 01/31/2024 3 [...] DATE CREATED AUTHOR AUTHOR'S ORGANIZ ATION [facility] DATE CREATED AUTHOR AUTHOR'S ORGANIZ ATION 09/25/2021 [facility] [place] DATE CREATED AUTHOR AUTHOR'S ORGANIZ ATION 05/18/2022 [facility] DATE CREATED AUTHOR AUTHOR'S ORGANIZ ATION 10/20/2022 [facility] DATE CREATED AUTHOR AUTHOR'S ORGANIZ ATION 02/13/2023 [facility] DATE CREATED AUTHOR AUTHOR'S ORGANIZ ATION 03/16/2023 [facility] DATE CREATED AUTHOR AUTHOR'S ORGANIZ ATION 03/21/2023 [facility] DATE CREATED AUTHOR AUTHOR'S ORGANIZ ATION 04/07/2023 [facility] <item><item> Privacy Markings (unrecogniz ed section and [...] Care Teams (unrecognized sec tion and content) Meat Blender Relationship Specialty Start Date End Date Eben Vo MD [address] [place] [address] PCP - General Family Medicine 07/15/17 Meat Blender Relationship Specialty Start Date End Date Eben Vo MD [address] [place], [place] [phone] PCP - General Family Medicine 07/15/17 Meat Blender Relationship Specialty Start Date End Date Eben Vo MD [address] [place], [place] [phone] PCP - General Family Medicine 07/15/17 Meat Blender Relationship Specialty Start Date End Date Eben Vo MD [address] [place], [place] [phone] PCP - General Family Medicine 07/15/17 Meat Blender Relationship Specialty Start Date End Date Eben Vo MD [address] [place], [place] [phone] PCP - General Family Medicine 07/15/17 Meat Blender Relationship Specialty Start Date End Date Eben Vo MD [address] [place], [place] [phone] PCP - General Family Medicine 07/15/17 Meat Blender Relationship Specialty Start Date End Date Eben Vo MD [address] [place], [place] [phone] PCP - General Family Medicine 07/15/17 Meat Blender Relationship Specialty Start Date End Date Eben Vo MD [address] [place], [place] [phone] PCP - General Family Medicine 07/15/17 Meat Blender Relationship Specialty Start Date End Date Eben Vo MD [address] [place], [place] [phone] PCP - General Family Medicine 07/15/17 Meat Blender Relationship Specialty Start Date End Date Lavelle Boone MD [address] [place] [address] PCP - General Family Practice 01/03/20 Meat Blender Relationship Specialty Start Date End Date Eben Vo MD [address] [place] [address] PCP - General Family Medicine 07/15/17 Meat Blender Relationship Specialty Start Date End Date Eben Vo MD [address] [place] [address] PCP - General Family Medicine 07/15/17 Meat Blender Relationship Specialty Start Date End Date Eben Vo MD [address] [place] [address] PCP - General Family Medicine 07/15/17 Meat Blender Relationship Specialty Start Date End Date Lavelle Boone MD [address] [place] [address] PCP - [employer] Medicare Advantage PCP 02/17/21 Meat Blender Relationship Specialty Start Date End Date Eben Vo MD [address] [place] [address] PCP - General Family Medicine 07/15/17 Meat Blender Relationship Specialty Start Date End Date Eben Vo MD [address] [place] [address] PCP - General Family Medicine 07/15/17 Meat Blender Relationship Specialty Start Date End Date Lavelle Boone MD PCP - [employer] Medicare Advantage PCP 02/17/21 Eben Vo MD [address] [place] [address] PCP - General 10/15/22 Meat Blender Relationship Specialty Start Date End Date Lavelle Boone MD [address] [place] [address] PCP - [employer] Medicare Advantage PCP 02/17/21 Eben oV MD [address] [place] [address] PCP - General 10/15/22 Lucille Gerard, laser engraverScientific Aide 12/05/22 Meat Blender Relationship Specialty Start Date End Date Lavelle Boone MD [address] [place] [address] PCP - [employer] Medicare Advantage PCP 02/17/21 Eben Vo MD [address] [place] [address] PCP - General 10/15/22 Lucille Gerard RN Care Scientific Aide 12/05/22 Meat Blender Relationship Specialty Start Date End Date Lavelle Boone MD [address] [place] [address] PCP - [employer] Medicare Advantage PCP 02/17/21 Eben Vo MD [address] [place] [address] PCP - General 10/15/22 Lucille Gerard, laser engraverScientific Aide 12/05/22 Meat Blender Relationship Specialty Start Date End Date Lavelle Boone MD [address] [place] [address] PCP - [employer] Medicare Advantage PCP 02/17/21 Eben Vo MD [address] [place] [phone] PCP - General 10/15/22 Lucille Gerard, laser engraverScientific Aide 12/05/22 Meat Blender Relationship Specialty Start Date End Date Lavelle Boone MD [address] [place] [address] PCP - [employer] Medicare Advantage PCP 02/17/21 Eben Vo MD [address] [place] [address] PCP - General 10/15/22 Lucille Gerard laser engraverScientific Aide 12/05/22 Meat Blender Relationship Specialty Start Date End Date Eben Vo MD [address] [place] [phone] PCP - General 10/15/22 Eben Vo MD [address] [place] [address] PCP - [employer] Medicare Advantage PCP 02/17/23 Lucille Gerard laser engraverScientific Aide 12/05/22 Meat Blender Relationship Specialty Start Date End Date Eben Vo MD [address] [place] [address] PCP - General Family Medicine 07/15/17 Reason for Visit (unrecogniz ed section and [...] secondary cataract Procedures POST-CATARACT LASER SURGERY [facility] [address] Raul Rivera MD [address] [place] [address] Raul Rivera MD [address] [place] [address] Referral ID Status Reason Start Date Expiration Date Visits Re quested Visits Authorized [id number] Closed 07/11/2021 02/16/2022 1 1 Reason Comments [...] Specialty Diagnoses / Procedures Referred By Holger t Referred To Contact Primary Care Diagnoses Longstanding persistent atrial fibrillation (CMS/HCC) Dyspepsia Procedures Follow Up In Primary Care - Established Eben Vo MD [address] [place] [address] Referral ID Status Reason Start Date Expiration Date V isits Requested Visits Authorized [id number] Authorized 11/01/2022 04/30/2023 1 1 Reason Comments Dyspepsia Has had some heart i ssues since the beginning of symptoms, had heart cath and cardioversion. Patient is taking omeprazole. Had cardioversion a week ago and symptoms of indigestion is better. Patient reports lots of danielle such as belching and flatulence Specialty Diagnoses / Procedures Referred By Contac t Referred To Contact Radiology Diagnoses Abdominal bloating Procedures US abdomen complete Eben Vo MD [facility] [place] [id number] Referral ID Status Reason Start Date Expiration Date Visits Requested Visits Authorized [id number] Authorized Perform Procedure 3 01/16/2024 1 1 Specialty Diagnoses / Procedures Referred By Contac t Referred To Contact Radiology Diagnoses Abdominal bloating Procedures NM hepatobiliary w cholecystokinin Eben Vo MD [address] [place] [phone] Referral ID Status Reason Start Date Expiration Date Visits Requested Visits Authorized [id number] Pending Review Perform Procedure 3 01/31/2024 3 3 Reason Comments Medicare Annual Wellness Visit Subsequen t Specialty Diagnoses / Procedures Referred By Contac t Referred To Contact Primary Care Diagnoses Longstanding persistent atrial fibrillation (CMS/HCC) Dyspepsia Non-ischemic cardiomyopathy ([facility]/HCC) Procedures Follow Up In Primary Care Eben Vo MD [address] [place] [phone] Referral ID Status Reason Start Date Expiration Date V isits Requested Visits Authorized [id number] Authorized 12/13/2022 12/13/2023 1 1 Reason Comments Foot Problem R heel pain, nail cu rving hard to trim and L foot bone spur/callus Source Comments (unrecognize d section and content) In the event this informatio n is protected by the Federal Confidentiality of Alcohol and Drug Abuse Patient Records regulations: The Federal rules restrict any use of the information to criminally investigate or prosecute any alcohol or drug abuse patient.[facility] FOR RECORDS PERTAINING TO PATIENTS WHO [...] BE BASED ON THE PRIMARY CLINICAL RECORDS. [facility]. provides no warranty or guarantee of the accuracy or completeness of information in this document.
== END | disposition home or self-care (01) ==
LOC: CT 07:30
PROVIDERS: PCP Family Medicine; Referring Provider Surgery; Visit Provider Surgery
DX: R10.9 Unspecified abdominal pain (principal)
CPT/HCPCS: 74177; Q9967

== ENCOUNTER → 2023-05-23 | Outpatient (CLI) | payer MEDICARE, SELFPAY ==
--- NOTE | 2023-05-23 09:02 | ECHOL_ITS ---
Reason For Study: EVALUATE EF ON FARXIGA Procedure This was a limited 2D transthoracic echocardiogram. Exam performed in department. Left Ventricle Normal LV size. Mild concentric left ventricular hypertrophy. Left ventricular systolic function is lower limits of normal. The estimated ejection fraction is 50 %. No regional wall motion abnormalities noted. Right Ventricle Normal RV size. Normal systolic function. Atria Normal left atrium. Normal right atrium. Mitral Valve Normal mitral valve. Tricuspid Valve Normal tricuspid valve. Aortic Valve Trisinus/trileaflet aortic valve. Pulmonic Valve Normal pulmonic valve. Great Vessels Normal aortic root. Pericardium/Pleural No pericardial effusion. MMode/2D Measurements & Calculations LVIDd: 4.8 cm IVSd: 1.3 cm LAV(MOD-bp): 64.2 ml LVIDs: 4.1 cm LVPWd: 1.3 cm LAV(MOD-bp) Indexed: 34.8 ml/m2 FS: 14.5 % LAV(MOD-sp2): 57.3 ml LAV(MOD-sp4): 63.1 ml SV(MOD-sp4): 64.6 ml SV(sp4-el): 61.6 ml LVAd ap4: 36.7 cm2 LVLd ap4: 8.9 cm EDV(MOD-sp4): 129.8 ml EDV(sp4-el): 128.5 ml LVAs ap4: 23.9 cm2 LVLs ap4: 7.3 cm ESV(MOD-sp4): 65.3 ml ESV(sp4-el): 67.0 ml EF(MOD-sp4): 49.7 % EF(sp4-el): 47.9 % LA A4 area: 21.9 cm2 LA dimension(2D): 4.5 cm RA A4 area: 15.7 cm2 ECHO/Echo, Limited Study Interpretation Summary Normal LV size. Left ventricular systolic function is lower limits of normal. The estimated ejection fraction is 50 %. Mild concentric left ventricular hypertrophy. Compared to previous study, the left ventricular systolic function has improved .. Ordering Physician: Valentina Davidson Referring Physician: Valentina Davidson Performed By: Ny Fermin RCS
== END | disposition home or self-care (01) ==
LOC: CVS 09:00
PROVIDERS: PCP Family Medicine; Referring Provider Nurse Practitioner Gerontology; Visit Provider Nurse Practitioner Gerontology
DX: I50.22 Chronic systolic (congestive) heart failure (principal); I42.9 Cardiomyopathy, unspecified
CPT/HCPCS: 93308

== ENCOUNTER → 2023-11-19 | Outpatient (CLI) | payer MEDICARE, SELFPAY ==
--- NOTE | 2023-11-19 08:58 | ECHOD_ITS ---
Reason For Study: DILATED CARDIOMYOPATHY Procedure This was a 2D Doppler, Color Flow transthoracic echocardiogram. Exam performed in department. Left Ventricle Normal LV size. Moderate concentric left ventricular hypertrophy. Left ventricular systolic function is normal. The estimated ejection fraction is 60 %. Stage 2 diastolic dysfunction. No regional wall motion abnormalities noted. Right Ventricle Normal RV size. Normal systolic function. Atria Normal left atrium. Normal right atrium. Mitral Valve Normal mitral valve. Tricuspid Valve Normal tricuspid valve. Mild (1+) tricuspid valve insufficiency. Pulmonary artery systolic pressure is 34 mmHg. Aortic Valve Trisinus/trileaflet aortic valve. Pulmonic Valve Normal pulmonic valve. Great Vessels Normal aortic root. The pulmonary artery is normal size. Normal inferior vena cava. Pericardium/Pleural No pericardial effusion. MMode/2D Measurements & Calculations LVIDd: 4.6 cm IVSd: 1.5 cm Ao root diam: 3.4 cm LVIDs: 3.3 cm LVPWd: 1.4 cm RVDd: 4.3 cm FS: 27.8 % LAV(MOD-bp): 56.6 ml LVAd ap4: 35.3 cm2 SV(MOD-sp4): 70.4 ml LAV(MOD-bp) Indexed: 31.3 ml/m2 LVLd ap4: 8.3 cm LAV(MOD-sp2): 54.5 ml EDV(MOD-sp4): 120.8 ml LAV(MOD-sp4): 58.7 ml EDV(sp4-el): 126.7 ml LVAs ap4: 20.9 cm2 LVLs ap4: 7.3 cm ESV(MOD-sp4): 50.4 ml ESV(sp4-el): 51.2 ml EF(MOD-sp4): 58.3 % EF(sp4-el): 59.6 % SV(sp4-el): 75.5 ml LA A4 area: 19.8 cm2 LA dimension(2D): 4.0 cm RA A4 area: 19.0 cm2 TAPSE: 2.0 cm Time Measurements MV dec time: 0.29 sec Doppler Measurements & Calculations MV E max miquel: 57.2 cm/sec Lat Peak E' Miquel: 9.5 cm/sec Med Peak E' Miquel: 5.6 cm/sec MV A max miquel: 35.5 cm/sec E/E' lat: 6.0 E/E' med: 10.1 MV E/A: 1.6 Ao V2 max: 96.7 cm/sec LV V1 max: 72.1 cm/sec PA V2 max: 82.9 cm/sec Ao max P.7 mmHg LV V1 max P.1 mmHg TR max miquel: 277.5 cm/sec TR max P.8 mmHg ECHO/Echo Complete Interpretation Summary Normal LV size. Left ventricular systolic function is normal. The estimated ejection fraction is 60 %. Moderate concentric left ventricular hypertrophy. Stage 2 diastolic dysfunction. Structurally normal valves. Compared to previous study, the left ventricular sy stolic function has improved.. Ordering Physician: Louie Brown Referring Physician: EBEN SMITH Performed By: Karina Wilde RDCS
== END | disposition home or self-care (01) ==
PROVIDERS: PCP Family Medicine; Referring Provider Internal Medicine Cardiovascular Disease; Visit Provider Internal Medicine Cardiovascular Disease
DX: I49.3 Ventricular premature depolarization (principal)
CPT/HCPCS: 93306

== ENCOUNTER → 2023-11-28 | Outpatient (CLI) | payer MEDICARE, SELFPAY | END | disposition home or self-care (01) | LOC: PSN 07:42 | PROVIDERS: PCP Family Medicine; Referring Provider Internal Medicine Cardiovascular Disease; Visit Provider Internal Medicine Cardiovascular Disease | DX: R94.31 Abnormal electrocardiogram [ECG] [EKG] (principal) | CPT/HCPCS: 93225; 93226 ==

== ENCOUNTER → 2024-01-29 | Outpatient (CLI) | payer MEDICARE, SELFPAY ==
--- NOTE | 2024-01-29 12:33 | CT_ITS ---
CT RIGHT LOWER EXTREMITY WITH 3-D IMAGING CLINICAL INDICATION: PRE OP TECHNIQUE: Axial CT images of the right lower extremity (including right hip, right knee, and right ankle) was performed without IV contrast material. Coronal and sagittal reformats were provided. The protocol utilizes one or more of the following dose reduction techniques: automated exposure control, adjustment of mA and/or kV according to patient size, and/or use of iterative reconstruction technique. RADIATION DOSAGE (If Supplied By Facility): CTDIvol = ( 19.77 ) mGy, DLP = ( 1287.02 ) mGycm COMPARISON: No relevant prior comparison study available. FINDINGS: Bones: There is moderate degenerative arthrosis of the right hip joint with joint space narrowing, marginal osteophyte formation, and subchondral cyst formation in the superolateral aspect of the right acetabulum. There is moderate tricompartment degenerative arthrosis of the right knee joint with joint space narrowing and marginal osteophyte formation. There is chondrocalcinosis of the medial and lateral menisci. Osseous structures are intact without evidence of fracture or dislocation. There is mild degenerative arthrosis of the tibiotalar and talonavicular joints of the right ankle. No lytic or blastic osseous masses. Soft Tissues: There is a moderate right knee joint effusion. There are atherosclerotic calcifications. The deep soft tissue structures are unremarkable. The superficial soft tissues are unremarkable without evidence of edema, hematoma, or foreign body. CT/Extremity Lower without Contra IMPRESSION: Moderate tricompartment degenerative arthrosis of the right knee. Chondrocalcinosis of the medial and lateral menisci. Moderate right knee joint effusion. Electronically Signed: Tommy Pinto MD at 14:31 EST ,
== END | disposition home or self-care (01) ==
LOC: CT 12:13
PROVIDERS: PCP Family Medicine; Referring Provider Specialist; Visit Provider Specialist
DX: M17.11 Unilateral primary osteoarthritis, right knee (principal); M21.161 Varus deformity, not elsewhere classified, right knee
CPT/HCPCS: 73700

== ENCOUNTER 2024-02-23 07:34 | Observation (INO) | payer MEDICARE, SELFPAY ==
--- NOTE | 2024-01-29 12:15 | EKG12_ITS ---
Test Reason : PREOP Blood Pressure : */* mmHG Vent. Rate : 49 BPM Atrial Rate : 49 BPM P-R Int : 170 ms QRS Dur : 84 ms QT Int : 498 ms P-R-T Axes : 30 119 -13 degrees QTcB Int : 449 ms Likely Junctional Rhythm Right axis deviation Septal infarct , age undetermined Abnormal ECG Confirmed by JULIENNE QUAHC, TORI ([id number]), state editor CAMDEN SMITH ([id number]) on 02/04/2024 1:57:07 P M Referred By: Myles Iraheta Confirmed By: TORI ROBINS MD
[2024-01-29 12:36] LABS: Absolute Lymphocyte Count 1.13 X10^3/uL (0.83-4.51); Absolute Neutrophil Count 3.6 X10^3/uL (2.0-7.7); Basophil# 0.06 X10^3/uL; Eosinophil# 0.38 X10^3/uL; Eosinophils% 6.3 % (0-5); Hematocrit 46.4 % (40-54); Hemoglobin 15.6 g/dL (13.0-16.5); Lymphocyte # 1.13 X10^3/ul (0.83-4.51); Lymphocyte % 18.7 % (19-41); Mean Corp Hgb Conc 33.6 g/dL (32-36); Mean Corpuscular Hgb 32.8 pg (27.0-32.0); Mean Corpuscular Volume 97.7 fL (80-94); Mean Platelet Vol. 9.8 fl (6.2-12.0); Monocyte# 0.88 X10^3/uL; Monocyte% 14.6 % (0-10); NRBC Flagged by Analyzer 0 % (0-5); Neutrophil # 3.57 X10^3/uL (2.7-7.7); Neutrophil % 59.2 % (47-70); Platelet Count 197 K/mm3 (150-450); RBC Distribution Width SD 46.9 fl (35.1-43.9); Red Blood Count 4.75 M/mm3 (4.6-6.2)
[2024-01-29 13:14] LABS: Albumin, Serum 3.6 g/dL (3.2-5.0); Anion Gap 3 (5-15); BUN 27 mg/dL (7-18); BUN/Creat Ratio 20.5 RATIO (10-20); Calcium,Total 8.9 mg/dL (8.5-10.1); Chloride 104 mmol/L (98-107); Creatinine, Serum 1.32 mg/dL (0.70-1.30); EST Glomerular Filtration Rate 57 mL/min (>60); Est Glom Filt Rate - Afr Amer 68 mL/min (>60); Glucose 105 mg/dL (74-106); Potassium 4.6 mmol/L (3.5-5.1); Sodium Level 139 mmol/L (136-145)
[2024-01-29 13:38] LABS: Magnesium 2.3 mg/dL (1.6-2.6)
--- NOTE | 2024-01-30 08:55 | PAT.ANE_ITS ---
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 When Was Last Pacemaker Check QUESTION #4 FULL TEXT: You/Your Family Experience fever (hyperthermia) with Anesthesia Last Oral Intake Last Oral intake: Last Oral Intake NPO since Meds taken in AM with sips of water? Meds patient instructed to take am of surgery PONV PONV - bridal gown fitter: PONV - bridal gown fitter Female No 01/27/24 10:21 HX of Motion Sickness No 01/27/24 10:21 HX of N/V After Surgery No 01/27/24 10:21 Non-Smoker Yes 01/27/24 10:21 Duration of Surgery greater Yes 01/27/24 10:21 than 60 minutes Number of Risk Factors 2 01/27/24 10:21 PONV Score Moderate Risk 01/27/24 10:21 Height & Weight Height & Weight: Anesthesia: Height & Weight Height 5 ft 8 in 11/20/23 09:42 Respiratory Assessment Respiratory Assessment - bridal gown fitter: Respiratory Tract Infection Hx - bridal gown fitter Hx Respiratory Tract Infection No 01/27/24 10:21 STOP Sleep Apnea STOP Sleep Apnea - bridal gown fitter: STOP Sleep Apnea - bridal gown fitter Hx Hypertension Yes: CONTROLLED WITH MED 01/27/24 10:21 Hx Sleep Apnea No 01/27/24 10:21 CPAP No 01/27/24 10:21 BIPAP No 01/27/24 10:21 Do you snore loudly (louder No 01/27/24 10:21 than talking or can be heard Do you often feel tired/ No 01/27/24 10:21 fatigued/ sleepy during daytime? Has anyone observed you stop No 01/27/24 10:21 breathing during sleep? STOP Results Negative 01/27/24 10:21 QUESTION #5 FULL TEXT : Do you snore loudly (louder than talking or can be heard through closed doors)? 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 Specify any problems Hx of Preganancy in last 3 N/A 01/27/24 10:21 Months Nurse Filling Out Transfusion NBUCHER 01/27/24 10:21 & Questions: Date: 01/27/24 01/27/24 10:21 Time: 10:01/27/24 10:21 Patient unable to answer at this time (ie. confused, unrespo /Reproduction History /Reproductive History - bridal gown fitter: /Reproductive Hx- bridal gown fitter Hx Now No 01/27/24 10:21 Gestational Age (in weeks): EDC: Hx Hx Para Hx Section SAB No 01/27/24 10:21 [facility] Medical History (Updated 01/27/24 @ 10:29 by Kandi Mack) Wears glasses BPH (benign prostatic hyperplasia) Prostate disease High cholesterol Small intestinal bacterial overgrowth (SIBO) Leg cramps Non-smoker History of Holter monitoring History of echocardiogram Cardiology follow-up encounter Urinary frequency Smokeless tobacco use History of cardioversion Non-ST elevated myocardial infarction Nonischemic cardiomyopathy Bone spur of right foot Coronary artery calcification Essential hypertension 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 Hyperlipidemia Abnormal EKG Premature ventricular contractions Arthritis New onset atrial fibrillation Home Medications ?Medication ?Instructions ?Recorded ?Last Taken ?Type tamsulosin 0.4 mg capsule (Flomax) 0.4 mg PO DAILY urine 07/30/21 03/25/23 History omeprazole magnesium 20 mg 20 mg PO DAILY stomach 11/06/22 03/25/23 History tablet,delayed release (Prilosec OTC) amiodarone 100 mg tablet 100 mg PO DAILY #90 tabs 05/27/23 Unknown Rx spironolactone 25 mg tablet 25 mg PO DAILY #90 tabs 05/27/23 Unknown Rx carvedilol 6.25 mg tablet 6.25 mg PO BID #60 tabs 11/20/23 Unknown Rx lactobacillus combination no.9 4 4,000 mmu cells PO QDAY 11/20/23 Unknown History billion cell capsule (Adult 50 Plus Probiotic) levothyroxine 50 mcg tablet 50 mcg PO QDAY 11/20/23 Unknown History dapagliflozin propanediol 10 mg 10 mg PO DAILY #90 tabs 12/30/23 Unknown Rx tablet (Farxiga) rivaroxaban 20 mg tablet (Xarelto) 20 mg PO DAILY blood thinner #90 12/30/23 Unknown Rx tabs Allergy/AdvReac Type Severity Reaction Status Date / Time Sulfa (Sulfonamide Allergy sores in Verified 01/27/24 10:17 Antibiotics) mouth sulfamethoxazole (From Allergy Sores in Verified 01/27/24 10:17 Bactrim) mouth Family History Mother Diabetes Father Congestive heart failure Flores's lung Sister Myocardial infarction CAD (coronary artery disease) Diabetes Brother Diabetes Surgical History (Updated 01/27/24 @ 10:29 by Kandi Mack) History of cardiac catheterization History of esophagogastroduodenoscopy (EGD) History of bilateral cataract extraction History of left heart catheterization (04/21/18) Finger laceration (02/27/18) History of foot fracture History of tonsillectomy and adenoidectomy History of arthroscopic knee surgery History of appendectomy History of colonoscopy (05/31/14) History of left knee replacement (05/09/15) Right carpal tunnel syndrome (03/25/18) Social History Smoking Status: Current some day smoker tobacco type: smokeless tobacco alcohol intake: current alcohol intake frequency: a few times a week caffeine: Yes Type: coffee Number of servings: 1 and tea Number of servings: 1 Audit: Pertinent Findings Pertinent Findings EKG Perinent findings: 11/20/23 sb, old ant infarct. nsst Stress test pertinent findings: neg 2019 ef 68 Echo (EF%) pertinent findings: 11/19/23 ef 60. LVH moderate Consult pertinent findings: cardo 12/10 par afib. nonischemic cardiomyopathy EF now 60% cont. current med tx Recommendation Anesthesia Recommendation Anesthesia recommendation: OPTIMIZED for anesthesia
--- NOTE | 2024-02-16 12:55 | PCM.HP.BLA ---
History and Physical History and Physical Patient Name: Tera Sandra : 1950From:? DIANA PITTMAN PA-C DATE OF PRE-OPERATIVE EXAM: 02/16/2024 DATE OF SURGERY:? 02/23/2024 SCHEDULED PROCEDURE:? Robotic-assisted right total knee arthroplasty HISTORY OF PRESENT ILLNESS: Preoperative history and physical exam was performed on February 16, 2024.? This is a 73-year-old male who has had ongoing pain since 2020.? Patient's pain has been intermittent and dull.? Pain is increased with going up and down stairs.? Patient has noticed a decreased strength with his leg.? He feels unsafe going up and down stairs.? Patient has tried ice, heat, elevation with minimal relief.? He has had previous corticosteroid injection without relief.? He has previous viscose supplementation injection in which the effectiveness of these injections has diminished over the years.? The last injection only gave a very short period of relief.? He denies past history of surgery on the right knee.? He has tried oral medications without relief.? After failing conservative measures discussing all treatment options with Dr. Myles Iraheta, the patient does wish to proceed with a right total knee arthroplasty.? Patient has obtain surgical clearance from the lab support tech Dr. Brown.? Advocacy Director recommend stopping the Rivaroxaban 2 days prior to surgery.? We are obtaining surgical clearance from her primary care provider Dr. Wes Duvall.? Patient denies any recent chest pain, shortness of breath, fevers chills or recent infections.? Denies past history of DVT.? Patient has medical history pertinent for history of atrial fibrillation, coronary artery disease, chronic kidney disease, benign prostatic hyperplasia, nonischemic cardiomyopathy, congestive heart failure, and insomnia. ? REVIEW OF SYSTEMS: Review Of Systems: Constitutional: Denies anorexia, change in appetite, fever, difficulty sleeping, weight change. Cardiovasular: Reports irregular heartbeat, but denies chest pain, heart murmur and peripheral vascular disease. Respiratory: Denies asthma, cough, pneumonia, sleep apnea, shortness of breath, tuberculosis and wheezing. Gastrointestinal: Denies constipation, diarrhea, heartburn, nausea, rectal itching, bloody stools and vomiting. Genitourinary: Denies incontinence. Musculoskeletal: Reports ambulatory dysfunction, gait disturbance, pain, trouble walking and weakness. Skin: Denies Raynaud's, history of shingles and tattoo. Neurological: Denies ambulatory dysfunction, dizziness, numbness/tingling and tremor. Psychiatric: Denies anxiety, depression, insomnia, mental illness and stress. Hematologic/Lymphatic: Reports bleeding/bruising tendency, but denies anemia and past transfusion. Reviewed and updated. PAST MEDICAL HISTORY: Advance Care Plan: No Advance Directives Effective Date: 03/12/2018 Past Medical History: Medical Problems: Arthritis, A-Fib Covid- 19 - (03/2020) VACCINATED Congestive Heart Failure (CHF), Coronary Artery Disease (CAD), Kidney Disease/Renal Failure, BPH, nonischemic cardiomyopathy, Insomnia Accidents: Fracture - BROKEN FOOT (19 BONES) 01-17-07 Dislocation Of RT Shoulder- Numerous Times RT Thumb Injury With Foreign Bodies - 07/19/20 Surgical Hx: Arthroscopies - LEFT 1993 [facility] RT [facility] LEFT 2001 [facility] LEFT 2001 [facility] Right Foot - 01-17-07 [facility] 01-28-07 [facility] 02-07-08 [facility] REMOVAL OF HARDWARE 01-17-10 [facility] FUSION AND IMPLANT OF [place]ED[place] 01-29-10 [facility] REMOVAL OF HARDWARE Tonsillectomy - 1957 Appendectomy - 1969 Knee Replacement LT - (05/09/2015) [email or web address] LT Knee Polyethylene Exchange/Scar Tissue Debridement - (12/19/2015) [email or web address] RT CTR - (03/25/2018) [email or web address] RT Thumb Trigger Release - (02/12/2019) [facility]W @ [facility] Carpal Tunnel Release LT - (05/05/2020) [facility] AT [facility] RT Bone Spur - (04/11/2021) Carpal Tunnel Release RT, Knee Arthroscopy RT, Knee Arthroscopy LT, cardioversion, heart cath Anesthesia Complications: None Assistive Devices: Glasses Reviewed and updated. 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 Personal Habits:? Cigarette Use: Never Smoked Cigarettes.Smokeless Tobacco: Current Smokeless Tobacco User - occasional .E-Cigarette Use: Never used.Alcohol: Occasionally.Drug Use: Denies Use.Enjoy Exercising: Exercises 1-3 X/Week. Reviewed and updated. VITALS: Ht: 67 Wt: 155lb Wt k.308 BMI: 24.3 BP: 122/84 Pulse: 76 Resp: 16 T: 97.2 T: 36.2C Pain Level: 8 O2SatR: 97 ALLERGIES: Bactrim Sulfa MEDICATIONS: Xarelto 20 mg 1po qday, Spironolactone 25 mg 1 po qdaily, Levothyroxine Sodium 75 mcg daily, Omeprazole 20 mg daily, Farxiga 10 mg daily, Trazodone HCL 50 mg take 1 tablet once daily atbedtime, Tamsulosin HCL 0.4 mg take 1 capsule by mouth once daily, Carvedilol 6.25 mg take 1 tablet twice a day? must administer with? meals/food, VII NETWORK? daily, Vitamin D3 Extra Strength 25 mcg (1000 Ut) once daily PRE-OP EXAM: General appearance:NORMAL? Other: Eyes: Conjunctivae and lids: NORMAL? Pupils: ERR Ears, Nose, Mouth, and Throat: NORMAL? Other: Inspection of lips, teeth and gums: NORMAL?? Other: Neck: Examination of neck: no masses noted. Respiratory: Assessment of respiratory effort: NORMAL?? Other: ? Auscultation of lungs: clear to auscultation no wheezes, rhonchi or rales. Cardiovascular:? Auscultation of heart: regular rate and rhythm, no murmurs, gallops or rubs. PHYSICAL EXAMINATION: On exam patient does have a large effusion of the right knee.? He has tennis to palpation along the medial joint line.? There is fixed varus alignment.? Range of motion: Lacks 4 full extension to 100 flexion.? Stable to anterior/posterior drawer exam.? Sensation intact to light touch. IMAGING STUDIES: Previous x-rays of the right knee reveal severe stage IV osteoarthritis with joint space narrowing, subchondral sclerosis, osteophyte formation. IMPRESSION: 1.? Severe right knee osteoarthritis 2.? Presence of left total knee arthroplasty 3.? Coronary artery disease 4.? Chronic kidney disease 5.? Congestive heart failure 6.? Nonischemic cardiomyopathy 7.? Insomnia PLAN: Dr. Myles Iraheta did discuss and review with the patient all treatment options including surgical versus nonsurgical options.? Patient does wish to proceed with the above-stated procedure.? Potential risks, benefits, and complications of the procedure were discussed in detail including but not limited to , infection, nerve and blood vessel damage, persistent pain, numbness, tingling, paresthesias, blood clot, pulmonary embolism, and requirement for possible further surgery.? The patient expressed full understanding and has no further questions for the doctor.? Patient does agree to proceed with the above-stated procedure and has signed the surgery consent form. POST-OP MEDICATION PLAN: Pain Medications:? Postoperative pain regimen will be initiated in the hospital for Dr. Myles Iraheta.? Patient has been following our nutrition protocol.? We are avoiding nonsteroidal anti-inflammatories due to the chronic kidney disease and history of anticoagulation. DVT Prophylaxis: Patient has been instructed to stop the Rivaroxaban 2 days prior to surgery per lab support tech.? This will be resumed on postoperative day #1 in which she will resume Rivaroxaban 20 mg once daily. This dictation was created using voice recognition software. Phonetic and/or grammatical errors may exist. ___? I have re-examined the patient.? There are no clinical changes since date of exam. ___? See progress notes for changes. ___? Dictated on admission Date: ? Time: Signature:
[2024-02-23] VITALS (14 sets, daily range): BP systolic 97–153; BP diastolic 55–72; PULSE 45–71; RESP 16–18; TEMP 36.2–36.7; O2SAT 92–99; BMI 23.9
--- NOTE | 2024-02-23 07:36 | RAD_ITS ---
EXAM: XR RIGHT KNEE, 1 OR 2 VIEWS CLINICAL INDICATION: post op -- AP and Lateral xray of operative knee in PACU TECHNIQUE: Frontal and/or lateral views of the right knee. COMPARISON: No relevant prior studies available. FINDINGS: Right total knee arthroplasty with postsurgical changes that are very recent; there is satisfactory alignment and no complications. Intra-articular gas and soft tissue gas anteriorly at the level of the distal femur are expected findings. No acute or healing fracture or malalignment. Vascular calcifications posteriorly. RAD/Knee 1 or 2 Views IMPRESSION: No unexpected postsurgical changes status post very recent total knee arthroplasty. Electronically Signed: Ambrose De La Cruz MD at 13:38 EST ,
--- NOTE | 2024-02-23 08:34 | PCM.PRE.AN2 ---
ASA Classification* ASA Classification ASA Classification: 3 Assessment & Plan Anesthesia* Anesthesia Assessment Anesthesia Assessment: Discussed sedation and/or anesthesia options, risks, benefits, and alternatives with patient/parents/legal guardian/POA. Questions invited. The patient/parents/legal guardian/POA seems to understand and agrees to proceed with anesthesia plan. Reviewed the physical assessment, medical history, allergy history and patient home medications list prior to surgery/procedure/anesthetic and documented any changes. Performed airway and anesthesia risk assessments. Anesthesia Type Anesthesia Type: Spinal (stopped elequis greater that 72 hrs, farxiga 48 hours) and Block Anesthesia Focused Assessment* Airway Assessment Mouth opens: >3 cm Mallampati Score: II Focused Labs Anesthesia Preop lab: CBC WBC 6.0 K/mm3 (4.4-11.0) 01/29/24 12:15 RBC 4.75 M/mm3 (4.6-6.2) 01/29/24 12:15 Hgb 15.6 g/dL (13.0-16.5) 01/29/24 12:15 Hct 46.4 % (40-54) 01/29/24 12:15 Plt Count 197 K/mm3 (150-450) 01/29/24 12:15 CHEMISTRY Potassium 4.6 mmol/L (3.5-5.1) 01/29/24 12:15 Sodium 139 mmol/L (136-145) 01/29/24 12:15 Magnesium 2.3 mg/dL (1.6-2.6) 01/29/24 12:15 BUN 27 mg/dL (7-18) H 01/29/24 12:15 Creatinine 1.32 mg/dL (0.70-1.30) H 01/29/24 12:15 Glucose 105 mg/dL (74-106) 01/29/24 12:15 TSH 4.150 uIU/mL (0.358-3.740) H 01/29/24 12:15 COAG PT 17.4 SECONDS (11.7-14.9) H 12/03/22 17:07 Pre-Assessment Diagnosis/Proposed Procedure Planned Operative Procedure(s): (R) ROBOTIC ASSISTED RIGHT TOTAL KNEE ARTHROPLASTY, ERAS Anesthesia History Anesthesia History - robotics technician: Anesthesia History - robotics technician Hx Hospitalization No 01/27/24 10:21 Any Problems With Anesthesia No 01/27/24 10:21 Cholinesterase deficiency No 01/27/24 10:21 You/Your Family Experience No 01/27/24 10:21 fever (hyperthermia) with Relationship Recent Exposure to Contagious No 03/25/23 09:43 Disease Does patient have nerve No 01/27/24 10:21 stimulator Patient instructed to have device shut off --Does patient have Pacemaker or ICD? When Was Last Pacemaker Check QUESTION #4 FULL TEXT: You/Your Family Experience fever (hyperthermia) with Anesthesia Last Oral Intake Last Oral intake: Last Oral Intake NPO since Meds taken in AM with sips of water? Meds patient instructed to take am of surgery PONV PONV - robotics technician: PONV - robotics technician Female No 01/27/24 10:21 HX of Motion Sickness No 01/27/24 10:21 HX of N/V After Surgery No 01/27/24 10:21 Non-Smoker Yes 01/27/24 10:21 Duration of Surgery greater Yes 01/27/24 10:21 than 60 minutes Number of Risk Factors 2 01/27/24 10:21 PONV Score Moderate Risk 01/27/24 10:21 Height & Weight Height & Weight: Anesthesia: Height & Weight Height 5 ft 8 in 02/20/24 09:21 Weight: 70.307 kg 02/20/24 09:21 Respiratory Assessment Respiratory Assessment - robotics technician: Respiratory Tract Infection Hx - robotics technician Hx Respiratory Tract Infection No 01/27/24 10:21 STOP Sleep Apnea STOP Sleep Apnea - robotics technician: STOP Sleep Apnea - robotics technician Hx Hypertension Yes: CONTROLLED WITH MED 01/27/24 10:21 Hx Sleep Apnea No 01/27/24 10:21 CPAP No 01/27/24 10:21 BIPAP No 01/27/24 10:21 Do you snore loudly (louder No 01/27/24 10:21 than talking or can be heard Do you often feel tired/ No 01/27/24 10:21 fatigued/ sleepy during daytime? Has anyone observed you stop No 01/27/24 10:21 breathing during sleep? STOP Results Negative 01/27/24 10:21 QUESTION #5 FULL TEXT : Do you snore loudly (louder than talking or can be heard through closed doors)? Tobacco Use History Tobacco Use History - robotics technician: Tobacco Use History - robotics technician Tobacco Use Smoking Status Current some day smoker 01/27/24 10:21 Hx Tobacco Use Yes 01/27/24 10:21 Years Smoking Packs Smoked per Day Smoking Cessation Date was within the last 15 years Hx Smoking Cessation Date Hx Smoking Cessation Counseling Hematologic Medial History Hematologic Hx - robotics technician: Hematologic Medical Hx - presser first Hx of Blood Transfusion No 01/27/24 10:21 Hx of Transfusion in last 3 No 01/27/24 10:21 Months Date of Last Transfusion (if within last 3 months) Ever experience any problems No 01/27/24 10:21 with transfusion(s)? Specify any problems Hx of Preganancy in last 3 N/A 01/27/24 10:21 Months Nurse Filling Out Transfusion NBUCHER 01/27/24 10:21 & Questions: Date: 01/27/24 01/27/24 10:21 Time: 10:22 01/27/24 10:21 Patient unable to answer at this time (ie. confused, unrespo /Reproduction History /Reproductive History - robotics technician: /Reproductive Hx- robotics technician Hx Now No 01/27/24 10:21 Gestational Age (in weeks): EDC: Hx Hx Para Hx Section SAB No 01/27/24 10:21 Active Medications Active Medications: Current Medications Generic Name Dose Route Start Last Admin Trade Name Freq PRN Reason Stop Dose Admin Acetaminophen 1,000 mg 02/23/24 10:00 Acetaminophen 500 Mg Tablet PO 02/23/24 10:01 X1 ONE Acetaminophen 1,000 mg 02/23/24 14:00 Acetaminophen 500 Mg Tablet PO Q8 [facility] Carvedilol 6.25 mg 02/23/24 10:00 Carvedilol 6.25 Mg Tablet PO BID [facility] Protocol Tranexamic Acid 2,000 mg/ 0 mg 02/23/24 10:00 Sodium Chloride 100 ml OPERA.SITE 02/23/24 10:01 X1 ONE Sodium Chloride 77.4 ml/ 0 ml 02/23/24 10:00 Ropivacaine 200 mg/ OPERA.SITE 02/23/24 10:01 Epinephrine HCl 0.6 mg/ X1 ONE Ketorolac Tromethamine 30 mg/ Morphine Sulfate 5 mg Dexamethasone Sodium Phosphate 10 mg 02/23/24 10:00 Dexamethasone 10 Mg/Ml Vial IV 02/23/24 10:01 X1 ONE Enteral Nutritional Formula 237 ml 02/23/24 08:00 Ensure Surgery 237 Ml Liquid PO TIDCM [facility] Famotidine 20 mg 02/23/24 10:00 Famotidine 20 Mg Tablet PO DAILY [facility] Gabapentin 600 mg 02/23/24 10:00 Gabapentin 600 Mg Tablet PO 02/23/24 10:01 X1 ONE Lactated Ringer's 1,000 mls @ 999 mls/hr 02/23/24 10:00 IV 02/23/24 11:00 .Q1H1M [facility] Cefazolin Sodium 2 gm/ N/A 20 mls @ 400 mls/hr 02/23/24 10:00 IV 02/23/24 10:02 PREOP ONE Magnesium Sulfate 1 gm/ 102 mls @ 408 mls/hr 02/23/24 10:00 Dextrose IV 02/23/24 10:14 X1 ONE Cefazolin Sodium 1 gm in 50 mls @ 150 mls/hr 02/23/24 14:00 IV 02/23/24 22:19 Q8 [facility] Sodium Chloride 1,000 mls @ 15 mls/hr 02/23/24 08:15 IV 02/26/24 02:54 .Q48H [facility] Protocol Insulin Human Lispro 1 - 6 unit 02/23/24 10:00 Insulin Lispro 100 Unit/Ml Insuln.Pen SC Q4H PRN PRN BG>/= 180, SEE PROTOCOL Protocol Levothyroxine Sodium 50 mcg 02/23/24 07:45 Levothyroxine 50 Mcg Tablet PO QDAY [facility] Morphine Sulfate 2 - 4 mg 02/23/24 07:34 Morphine 2 Mg/Ml Syringe IV Q2H PRN PRN Pain Score 6-10 Non-Formulary Medication 10 mg 02/23/24 10:00 Dapagliflozin Propanediol [Farxiga] PO DAILY [facility] Ondansetron HCl 4 mg 02/23/24 07:34 Ondansetron 4 Mg/2 Ml Vial IV Q8H PRN PRN NAUSEA Oxycodone HCl 5 - 10 mg 02/23/24 07:34 Oxycodone 5 Mg Tablet PO Q4H PRN PRN Pain Score 4-10 Pantoprazole Sodium 20 mg 02/23/24 10:00 Pantoprazole Sodium 20 Mg Tablet PO DAILY [facility] Promethazine HCl 12.5 mg 02/23/24 07:34 Promethazine 25 Mg/Ml Syringe IM Q6H PRN PRN NAUSEA/VOMITING Protocol Rivaroxaban 20 mg 02/24/24 10:00 Rivaroxaban 20 Mg Tablet PO DAILY [facility] Senna/Docusate Sodium 2 tablet 02/23/24 10:00 Senna/Docusate Sodium 1 Tablet PO BID [facility] Spironolactone 25 mg 02/23/24 10:00 Spironolactone 25 Mg Tablet PO DAILY [facility] Protocol Tamsulosin HCl 0.4 mg 02/23/24 10:00 Tamsulosin Hcl 0.4 Mg Capsule PO DAILY [facility] Medical History Wears glasses BPH (benign prostatic hyperplasia) Prostate disease High cholesterol Small intestinal bacterial overgrowth (SIBO) Leg cramps Non-smoker History of Holter monitoring History of echocardiogram Cardiology follow-up encounter Urinary frequency Smokeless tobacco use History of cardioversion Non-ST elevated myocardial infarction Nonischemic cardiomyopathy Bone spur of right foot Coronary artery calcification Essential hypertension Paroxysmal atrial fibrillation nursing home (current) use of anticoagulants Hyperlipidemia Abnormal EKG Premature ventricular contractions Arthritis New onset atrial fibrillation Home Medications ?Medication ?Instructions ?Recorded ?Last Taken ?Type tamsulosin 0.4 mg capsule (Flomax) 0.4 mg PO DAILY urine 07/30/21 03/25/23 History omeprazole magnesium 20 mg 20 mg PO DAILY stomach 11/06/22 03/25/23 History tablet,delayed release (Prilosec OTC) spironolactone 25 mg tablet 25 mg PO DAILY #90 tabs 05/27/23 Unknown Rx carvedilol 6.25 mg tablet 6.25 mg PO BID #60 tabs 11/20/23 Unknown Rx lactobacillus combination no.9 4 4,000 mmu cells PO QDAY 11/20/23 Unknown History billion cell capsule (Adult 50 Plus Probiotic) levothyroxine 50 mcg tablet 50 mcg PO QDAY 11/20/23 Unknown History dapagliflozin propanediol 10 mg 10 mg PO DAILY #90 tabs 12/30/23 Unknown Rx tablet (Farxiga) rivaroxaban 20 mg tablet (Xarelto) 20 mg PO DAILY blood thinner #90 12/30/23 Unknown Rx tabs Allergy/AdvReac Type Severity Reaction Status Date / Time Sulfa (Sulfonamide Allergy sores in Verified 02/23/24 08:37 Antibiotics) mouth sulfamethoxazole (From Allergy Sores in Verified 02/23/24 08:37 Bactrim) mouth amiodarone AdvReac Intermediate Affecting Verified 02/23/24 08:37 vision/eyesight Family History Mother Diabetes Father Congestive heart failure Flores's lung Sister Myocardial infarction CAD (coronary artery disease) Diabetes Brother Diabetes Surgical History History of cardiac catheterization History of esophagogastroduodenoscopy (EGD) History of bilateral cataract extraction History of left heart catheterization (04/21/18) Finger laceration (02/27/18) History of foot fracture History of tonsillectomy and adenoidectomy History of arthroscopic knee surgery History of appendectomy History of colonoscopy (05/31/14) History of left knee replacement (05/09/15) Right carpal tunnel syndrome (03/25/18) Social History Smoking Status: Current some day smoker tobacco type: smokeless tobacco alcohol intake: current alcohol intake frequency: a few times a week caffeine: Yes Type: coffee Number of servings: 1 and tea Number of servings: 1 Review of Systems (Anesthesia) ROS Narrative System reviewed and no additional complaints, except as documented.
[2024-02-23] MEDS: 0.9% Normal Saline (1000mL) 1,000 ML 15 ML IV (08:40)
[2024-02-23] MEDS: Lactated Ringers 1,000 ML 999 ML IV (08:40)
[2024-02-23] MEDS: Magnesium 1 GM over 15 mins IV (08:41)
[2024-02-23] MEDS: Acetaminophen 500 MG Tablet 1000 MG PO ×2 (08:55→18:11)
[2024-02-23] MEDS: Gabapentin 600 MG Tablet PO (08:55)
[2024-02-23 09:19] LABS: Bedside Glucose 96 mg/dL (74-106)
[2024-02-23] MEDS: Cefazolin 2 GM in Syringe 10 ML IV (09:59)
--- NOTE | 2024-02-23 10:00 | KNEE_PTH ---
PATIENT: CHASITY PINO LOC: MS3 U#:[id number] AGE/SX: 73/M ROOM: LA321 RE02/23/[address]: Dr. Myles Iraheta MD : 1950 BED: 1 DIS: 02/24/2024 SPEC #: [id number] RECD: 02/23/24 14:20 STATUS: QUE REQ #: [id number] HERBERTH: 02/23/24 10:[address]: Myles Iraheta DEPT: SURGICAL PATHOLOGY RECD BY: Huma Billy ENTERED: 02/24/24 10:51 SP TYPE: TOTAL KNEE OTHR DR: MD Dr. Alfonso Vazquez MD Dr. Nana Yaa Koram, MD Dr. Nicholas F Kotsonis, MD Tissues: Knee, NOS Procedures: Decalcification bone/plaque Surgery Specimen Level IV HEADER OPERATION: Robotic assisted right total knee arthroplasty PRE-OP DIAGNOSIS: Severe right knee osteoarthritis TISSUE SUBMITTED: Right knee debrided bone and tissue MICROSCOPIC DIAGNOSIS Bone and soft tissue, right knee, total knee replacement/resection: Pieces of bone with degenerative osteoarthritic changes. Fibroadipose tissue, fibroconnective tissue and reactive synovial tissue. SJ: 02/27/2024 MICROSCOPIC DESCRIPTION Slides are reviewed. GROSS DESCRIPTION Received is one container designated bone and soft tissue right knee. The specimen consists of multiple fragments of mack-yellow bone measuring in aggregate 12.0 x 11.0 x 4.0 cm. Also present attached to the piece of bone is a piece of soft tissue measuring 2.5 x 1.0 x 0.4cm. A number of bony fragments contain articular surfaces consistent with tibial plateau and femoral condyle and displaying prominent osteophyte formation, eburnation and bone erosion. Adult Neuropsychologist sections are submitted in two cassettes as follows: 1 - entire soft tissue, 2 - bone after decalcification. / SJ.mr 02/24/2024 TC:5 CPT: 91443, 85146
[2024-02-23] MEDS: JPS (Morphine 10mg/ml) OPERA.SITE (11:39)
[2024-02-23] MEDS: TRANEXAMIC ACID 2,000 MG, 0.9% Normal Saline (100mL Bag) 100 ML OPERA.SITE (11:40)
--- NOTE | 2024-02-23 11:45 | PCM.OPRPT ---
Operative Report (Standard) Operative Information Date of Procedure: 02/23/24 Pre-Operative Diagnosis: Right knee primary osteoarthritis Post-Operative Diagnosis: Right knee primary osteoarthritis Surgery/Procedure Performed: Right minimally invasive robotic assisted total knee replacement insurance loss control surveyor: Yes Computer Systems Technology Instructor: Bin Lundberg Tasks completed by first cook: Other (See operative report) Additional assistant spa manager?: No Type of Anesthesia: Spinal RN Documented Start/Stop Times: Operation Date: 02/23/24 10:00 Case Time Into Pre-Op 02/23/24 08:12 Anesthesia Start 02/23/24 09:59 Into Room 02/23/24 09:59 Procedure Start 02/23/24 10:55 Procedure Start Time: 10:55 Procedure Stop Time: 12:18 Select all DRAINS/GRAFTS/IMPLANTS that apply: Prosthetic device Prosthetic device details: See operative report Special Medications: Ancef Estimated Blood Loss: 200 mL Fluids Replaced: 2000 mL crystalloid Specimen collected: Yes Description of specimen(s) removed: Bony cuts Description of surgery: Implants used: 1. [place] size 6 triathlon cruciate retaining distal femoral press-fit component 2. [place] size 7 press-fit tritanium tibial baseplate 3. [place] X3 10 mm CS polyethylene 4. [place] X3 38 mm asymmetric patella Brief history operative indications: 73-year-old m with history of right knee osteoarthritis with radiographic findings with loss of joint space, osteophyte formation and subchondral sclerosis. Failed conservative measures as mentioned in the H&P. Discussion of total knee arthroplasty as well as risk and benefits were discussed the patient including but not limited to blood loss, DVTs, PEs, neurovascular damage, general risk of anesthesia including loss of life, and stiffness or instability were discussed with patient. Patient demonstrated understanding and was able to sign informed consent. Procedure: On the date of procedure patient's right lower extremity was marked in the preoperative area. The patient was then taken back to the operating room where the patient was placed on the table in the supine position. All bony prominences were identified a well-padded. Anesthesia assumed control of the C-spine and airway and remained controlled throughout the remainder of the procedure. A tourniquet was placed on the right upper thigh and the leg was prepped in a sterile fashion. The surgeon then scrubbed at this time .Upon reentering the room right lower extremity was draped in a standard orthopedic fashion. A timeout was then called and everyone agreed upon the side, the site, the procedure to be performed, patient's identity and antibiotics given. Esmarch bandage was used to exsanguinate the extremity and the tourniquet was placed up to 250 mmHg with the knee in flexion. A midline skin incision was made and sharp dissection was taken down through skin subcutaneous tissue and fat. The standard medial parapatellar incision was made and the patella was subluxed laterally. An Appropriate deep MCL release was done and the fat pad was resected. Our attention was then directed to the patella. The patella was everted and a flat resection was made. The knee was then flexed up in 2 femoral pins were placed inside the incision and 2 tibial pins were placed outside the incision in the medial tibia bicortically. Once this was completed the 2 checkpoints in the femur and tibia were placed. Knee was then flexed up and the bony landmarks were registered. Once this was completed knee was taken through range of motion and manually stressed allowing us to a plan for an appropriate tibial cut. The robotic arm was brought into the field sterilely and checkpoint and saw were registered. Based on the patient's deformity the tibial cut was made and 0.5 degrees varus. At this time the tensioner was then placed in the joint and ligament tension was checked at 90 degrees and full extension. Based on the patient's ligamentous tension appropriate adjustments were made to the operative plan and ligament releases were done. Once we were happy with our operative plan with balanced flexion and extension gaps our attention was directed to the femur. The robot was brought into the field sterilely and registered. Posterior condylar cuts, anterior chamfer cuts and anterior cuts were appropriately made for a size 6 femur. When these were completed the saws were switched out in the distal femoral and posterior chamfer cuts were made. Protecting the soft tissue throughout this time. A size 7 tibial base plate was selected. the knee was flexed to 90 degrees and the soft tissues and posterior osteophytes were removed from the joint. 40 cc of the periarticular injection was injected into the posterior medial corner of the joint. The appropriate trials were then placed on the femur and tibia. A trial polyethylene was trialed to ensure proper balancing and stability of the knee. The appropriate tibial internal rotation was then marked with a bovie. Our attention was then directed to the patella. The lug holes were drilled and the patella trial was placed. Patellar tracking was checked and deemed appropriate. Once we were happy lug holes were drilled for the femur and trial components were removed. The tibia was subluxed and pinned into place and the keel was punched and drilled appropriately. Final components were verified and opened. The wound was copiously irrigated with normal saline. When the cement was ready the components were impacted into place starting with the tibia then the femur, finally the patella was compressed into place. The trial poly component was placed and the knee was placed in full extension. Once the the implants were secured, the tracking, alignment and balance were verified and a size 10 mm CS polyethylene component was placed. Once the final components were placed a 3-minute dilute Betadine lavage was performed followed by an Irrisept lavage was performed and the wound was copiously irrigated with normal saline solution and the periarticular injection was given. The wound was closed in a layer hopson fashion using #1 vicryl interrupted sutures for the arthrotomy, 2-0 interrupted Vicryl suture for the subcuticular layer and gary for final skin closure. A sterile compressive dressing was then placed. The patient was then awakened from anesthesia, [facility] and transferred to the PACU for recovery. Post op plan DVT ppx: Patient will resume Xarelto home dose tomorrow morning, thigh high compression stockings Follow up: in office in 2 weeks for wound check PT: to start POD #0 at hospital, outpatient PT should be arranged. My physician assistant spa manager was a vital part of this case, they was important because there was not another skilled set of hands available to their training and aptitude needed for safe and appropriate completion of this case. They were important in appropriate retraction during the case, and protection of soft tissues during bony cuts. In particular the experience and skill of this assistant spa manager made for safe retraction and exposure during implantation of medical implants without damage to vital soft tissues or structures. His intimate knowledge of the case and my steps aided in safe and expedient completion of the procedure as well as appropriate position of the leg during the case. He was also vital in assisting with closure under my direct supervision. Due to the complexity of this case robotic arm was used to assist in the surgery to improve accuracy and clinical outcomes. Surgical Findings: Stable knee with good patella tracking. Stage IV osteoarthritis. Complications Complications: No Admit VTE Documentation VTE Present on Admission: No VTE Mechan Device Prophylaxis: SCD's and Thigh High KECIA Hose VTE Pharm Prophylaxis ordered?: Yes
--- NOTE | 2024-02-23 12:43 | POSTOPAN2_ITS ---
Anesthesia Postop Eval I Sum Postop Eval Completion status Anesthesia document: Postop Eval 1 completed: Yes Anesthesia Postop Eval I Summary Anesthesia Postop Eval I Summary: Anesthesia Postop Eval I: Assessment Summary Airway patent Yes 02/23/24 12:43 SPUD [email or web address] Spontaneous unlabored Yes 02/23/24 12:43 SPUD GRADER.MDOT respirations Mental status Awake,Calm 02/23/24 12:43 SPUD GRADER.MDOT nausea No 02/23/24 12:43 SPUD GRADER.MDOT Vomiting No 02/23/24 12:43 SPUD GRADER.MDOT Anesthesia Postop Eval I: Fluid Summary Crystalloid volume administer 1,200 02/23/24 12:43 SPUD GRADER.MDOT (ml) Colloids volume administered ( ml) Blood Product volume administered (ml) Total IV fluid infused 1,200 02/23/24 12:43 SPUD GRADER.MDOT Anesthesia Postop Eval I: Summary Notes Anesthesia Complication No 02/23/24 12:43 SPUD GRADER.MDOT Anesthesia Complication Comment: Post-operative progress note Anesthesia: Postop Eval II Evaluation Mental status: Awake and Calm Pain Level: 0 nausea: No Vomiting: No Complications Anesthesia Complication: No
--- NOTE | 2024-02-23 12:43 | PCM.POST.ANE ---
Anesthesia: Postop Eval I Current Vital Signs Temperature: 97.2 F Pulse Rate: 51 Blood Pressure: 103/57 Respiratory Rate: 16 Pulse Ox: 97 Oxygen Delivery Method: Room Air Assessment Airway patent: Yes Spontaneous unlabored respirations: Yes Mental status: Awake and Calm nausea: No Vomiting: No Anesthesia Complication: No Fluid Hydration Crystalloid volume administer (ml): 1,200 Total IV fluid infused: 1,200 Progress Note Anesthesia document: Postop Eval 1 completed: Yes
--- NOTE | 2024-02-23 12:43 | PCM.POSTANE2 ---
Anesthesia Postop Eval I Sum Postop Eval Completion status Anesthesia document: Postop Eval 1 completed: Yes Anesthesia Postop Eval I Summary Anesthesia Postop Eval I Summary: Anesthesia Postop Eval I: Assessment Summary Airway patent Yes 02/23/24 12:43 DISTILLING DEPARTMENT SUPERVISOR.MDOT Spontaneous unlabored Yes 02/23/24 12:43 DISTILLING DEPARTMENT SUPERVISOR.MDOT respirations Mental status Awake,Calm 02/23/24 12:43 DISTILLING DEPARTMENT SUPERVISOR.MDOT nausea No 02/23/24 12:43 DISTILLING DEPARTMENT SUPERVISOR.MDOT Vomiting No 02/23/24 12:43 DISTILLING DEPARTMENT SUPERVISOR.MDOT Anesthesia Postop Eval I: Fluid Summary Crystalloid volume administer 1,200 02/23/24 12:43 DISTILLING DEPARTMENT SUPERVISOR.MDOT (ml) Colloids volume administered ( ml) Blood Product volume administered (ml) Total IV fluid infused 1,200 02/23/24 12:43 DISTILLING DEPARTMENT SUPERVISOR.MDOT Anesthesia Postop Eval I: Summary Notes Anesthesia Complication No 02/23/24 12:43 DISTILLING DEPARTMENT SUPERVISOR.MDOT Anesthesia Complication Comment: Post-operative progress note Anesthesia: Postop Eval II Evaluation Mental status: Awake and Calm Pain Level: 0 nausea: No Vomiting: No Complications Anesthesia Complication: No
[2024-02-23 13:05] LABS: Bedside Glucose 141 mg/dL (74-106)
--- NOTE | 2024-02-23 14:34 | PCM.PN.HOSP ---
Reason for Visit Reason for Visit: Diagnoses Encounter for other preprocedural examination (02/23/24) Subjective Subjective Patient evaluated in PACU doing well postoperatively status post right minimally invasive robotic assisted total knee replacements with denied postoperative pain at this time although does report he did have a block but tolerating it well and starting to move his lower extremities without issue. He notes he is tolerating food. Patient denies fevers, chills, nausea, emesis, abdominal pain, chest pain or dyspnea. Objective Data Objective Data Vital Signs: Vital Signs Temp Pulse Resp BP Pulse Ox O2 Del Method O2 Flow Rate 97.5 F L 59 L 16 114/55 L 99 Nasal Cannula 4 02/23/24 13:00 02/23/24 13:00 02/23/24 13:00 02/23/24 13:00 02/23/24 13:00 02/23/24 13:00 02/23/24 13:00 Oxygen Flow Rate (L/min) 4 Oxygen Delivery Method Nasal Cannula Weight: 157 lb 10.088 oz Body Mass Index (BMI) 23.9 Intake & Output: Intake and Output for Last 24 Hours 02/21/24 02/22/24 02/23/24 23:59 23:59 23:59 Intake Total 2121 Balance 2121 Lab / Micro Data 01/29/24 12:15 01/29/24 12:15 Labs: Laboratory Results - last 24 hr 02/23/24 08:34: POC Glucose 96 02/23/24 12:37: POC Glucose 141 H Micro: Microbiology 01/29/24 12:15 Swab (Method) Nasal Screen MRSA/MSSA - Final Radiography Diagnostic Testing: Radiology Impression Knee X-Ray 02/23/24 07:36 IMPRESSION: No unexpected postsurgical changes status post very recent total knee arthroplasty. Electronically Signed: Ambrose De La Cruz MD at 13:38 EST , Physical Exam Narrative Physical Examination: General: Awake, alert, oriented x 3 and cooperative, seated upright in PACU bed, denies any pain at this time, status post right total knee replacement. Skin: Normal color, normal turgor, no icterus, no cyanosis except for right total knee replacement dressing in place with no drainage. HEENT: AT/NC, EOMI, PERRLA, MMM. Lungs: CTA bilaterally, moderate effort, mild decrease BL bases, no rales, ronchi or wheezing. Heart: Regular rate and rhythm; no gallop, rub audible. Abdomen: Soft, NTTP, ND, normal BS. Extremities: No cyanosis, no clubbing, mild edema primarily to the right distal extremity as expected status post right total knee replacement with dressing in place with no drainage. Neurological: Patient awake, alert, oriented as noted, cognitive function intact; pupils equally reactive to light and accommodation, cranial nerves gross normal, moving all 4 extremities although expected some limitation right lower extremity given right total knee recent replacement, strength moderately to severely globally decreased Psychiatric: Affect appears normal, no acute evidence of depressive or anxiety feelings. Assessment & Plan Assessment/Plan (1) Osteoarthritis of right knee: PLAN: Plan The patient is a 73 y/o M w/ PMHx: BPH with obstructive pathology, HTN, HLD, PAF, CAD, Nonischemic cardiomyopathy, Hypothyroidism, Chronic Severe right knee osteoarthritis with failed conservative outpatient interventions and treatments who presents to the [facility] on 02/23/[address] Nye for planned right total knee replacement. #1. Severe Osteoarthritis, right knee: Failed conservative therapies and treatments, admitted per Dr. Iraheta, s/p R TKR, post-operative pain management, bowel regimen, DVT Prophylaxis, PT/OT/CM per Orthopedic surgery discretion. #2. PAF/flutter: Continue patient home Coreg regimen and resumption of Xarelto once cleared by orthopedic surgery given recent intervention. Patient has required previous cardioversion in the past and other agents including digoxin as well as previously amiodarone also have been utilized per most recent cardiology note. #3. Nonischemic cardiomyopathy: 02/27/2023 with normal LV, mild concentric LVH, EF 40%, mild to moderate global hypokinesis LV, PASP 40 mmHg with compared to previous study LV systolic function had improved and following this most recent 11/19/2023 echocardiogram even further improved with normal LV size, LV systolic function normal, EF 60%, moderate concentric LVH, stage II diastolic dysfunction, structurally normal valves. #4. Nonobstructive CAD: Continue patient home Xarelto regimen once cleared per orthopedic surgery given recent OR, continue Coreg, not on any JOHNY inhibitor/ARB, not on statin therapy, defer to outpatient. #5. Hypertension: Continue home regimen including Coreg, spironolactone with hold parameters as needed, PRN hydralazine. #6. Hyperlipidemia: Per current list does not appear to be on regimen, defer to outpatient. #7. BPH with obstructive pathology: We will continue patient on Flomax regimen, monitor for retention especially given recent anesthetics. #8. Hypothyroidism: We will continue patient home levothyroxine regimen. #9. GERD: We will continue patient on PPI. #10. DVT prophylaxis: Encourage SCDs until cleared for resumption of Xarelto home regimen. Charges/Coding Visit Charges Inpatient E&M: 40240 Subs Hosp L3
[2024-02-23] MEDS: Cefazolin 1 GM/50 ML BAG IV (18:10)
[2024-02-23] MEDS: Ensure Surgery 237 ML LIQUID PO (18:12)
[2024-02-23] MEDS: Carvedilol 6.25 MG Tablet PO (18:37)
[2024-02-23] MEDS: oxyCODONE 5 MG Tablet PO (22:00)
[2024-02-23] MEDS: Senna/Docusate Sodium 1 Tablet 2 TABLET PO (22:01)
[2024-02-24 00:39] VITALS: BP 113/59; PULSE 61; RESP 16; TEMP 36.5; O2SAT 95
[2024-02-24] MEDS: Acetaminophen 500 MG Tablet 1000 MG PO ×2 (01:57→08:30)
[2024-02-24] MEDS: Cefazolin 1 GM/50 ML BAG IV (01:58)
[2024-02-24 04:39] VITALS: BP 122/61; PULSE 55; RESP 16; TEMP 36.5; O2SAT 93
[2024-02-24] MEDS: Levothyroxine 50 MCG Tablet PO (06:11)
[2024-02-24 06:52] LABS: Hematocrit 37.8 % (40-54); Hemoglobin 12.5 g/dL (13.0-16.5); Mean Corp Hgb Conc 33.1 g/dL (32-36); Mean Corpuscular Hgb 32.2 pg (27.0-32.0); Mean Corpuscular Volume 97.4 fL (80-94); Platelet Count 161 K/mm3 (150-450); RBC Distribution Width CV 13.3 % (11.6-14.6); RBC Distribution Width SD 47.7 fl (35.1-43.9); Red Blood Count 3.88 M/mm3 (4.6-6.2); White Blood Count 13.4 K/mm3 (4.4-11.0)
[2024-02-24 07:41] LABS: Anion Gap 5 (5-15); BUN 22 mg/dL (7-18); BUN/Creat Ratio 16.9 RATIO (10-20); Calcium,Total 8.2 mg/dL (8.5-10.1); Chloride 103 mmol/L (98-107); EST Glomerular Filtration Rate 58 mL/min (>60); Est Glom Filt Rate - Afr Amer 70 mL/min (>60); Estimated Creatinine Clearance 49.69 ml/min; Glucose 126 mg/dL (74-106); Potassium 4.2 mmol/L (3.5-5.1); Sodium Level 135 mmol/L (136-145)
--- NOTE | 2024-02-24 08:21 | PN.ORTHO_ITS ---
Subjective Subjective The patient was sitting in bed upon examination. Patient denies any chest pain, shortness of breath, dizziness, lightheadedness, nausea or vomiting, or calf pain. Pain is controlled on medications. No adverse overnight events. Patient did require some pain medication for the lower pin sites. Overall he has been doing well this morning. He does have history of benign prostatic hyperplasia. He has been able to urinate on his own. Patient has no significant complaints this morning. Objective Data Objective Data Vital Signs: Vital Signs Temp Pulse Resp BP Pulse Ox O2 Del Method O2 Flow Rate 97.7 F L 55 L 16 122/61 H 93 Room Air 4 02/24/24 04:39 02/24/24 04:39 02/24/24 04:39 02/24/24 04:39 02/24/24 04:39 02/24/24 04:39 02/23/24 13:00 Oxygen Flow Rate (L/min) 4 Oxygen Delivery Method Room Air Weight: 71.5 kg Body Mass Index (BMI) 23.9 Intake & Output: Intake and Output for Last 24 Hours 02/22/24 02/23/24 02/24/24 23:59 23:59 23:59 Intake Total 3172 / 3172 Output Total 300 / 300 Balance 2872 / 2872 Lab / Micro Data 02/24/24 06:24 02/24/24 06:24 Labs: Laboratory Results - last 24 hr 02/23/24 08:34: POC Glucose 96 02/23/24 12:37: POC Glucose 141 H 02/24/24 06:24: WBC 13.4 H, RBC 3.88 L, Hgb 12.5 L, Hct 37.8 L, MCV 97.4 H, MCH 32.2 H, MCHC 33.1, RDW Std Deviation 47.7 H, RDW Coeff of Jair 13.3, Plt Count 161, MPV 10.0, Sodium 135 L, Potassium 4.2, Chloride 103, Carbon Dioxide 27.0, Anion Gap 5, BUN 22 H, Creatinine 1.30, Estim Creat Clear Calc 49.69, Est GFR (MDRD) Af Amer 70, Est GFR (MDRD) Non-Af 58 L, BUN/Creatinine Ratio 16.9, G lucose 126 H, Calcium 8.2 L Micro: Microbiology 01/29/24 12:15 Swab (Method) Nasal Screen MRSA/MSSA - Final Radiography Diagnostic Testing: Radiology Impression Knee X-Ray 02/23/24 07:36 IMPRESSION: No unexpected postsurgical changes status post very recent total knee arthroplasty. Electronically Signed: Ambrose De La Cruz MD at 13:38 EST , Physical Exam Narrative Vital signs stable and afebrile. SCDs and KECIA hose are in place bilaterally Patient is able to plantarflex and dorsiflex actively. Sensation is intact to light touch to saphenous, sural, superficial and deep peroneal, and tibial distribution. Dressings are clean dry and intact. Negative Homans bilaterally, negative signs and symptoms of DVT. Const alert, oriented x3 and no apparent distress
--- NOTE | 2024-02-24 08:25 | PCM.DC ---
Discharge Instructions Diet Discharge Diet: No restrictions DC O2, CPAP, BIPAP needs Home O2 Discharge instructions: No Dressing / Incision Discharge Activity: May Not Drive (No driving for 6 weeks postoperatively. Must also be off all narcotics and able to walk 100 feet without the use of cane or walker.) May shower in (days): 1 (Please turn dressing away from water. Okay to get wet as long as dressing is intact to skin.) Ice area for (Minutes): 20 (Every 1-2 hours while awake. Please place barrier between the skin and ice pack.) Weight Bearing Status: Weight bearing as tolerated Keep extremity elevated above heart level: Operative Extremity Dressing / Incision Call your doctor if your incision/area has: Continuous Slow Oozing, Sudden Increased Bleeding, Increased Pain/ Swelling, Increased Redness and Foul Smelling Discharge Call your doctor if you observe: Fever of 101 or Higher, Coldness, Increased Pain, Numbness or Tingling, Change in Color, Shortness of breath, Chest pain, Calf discomfort and Uncontrolled pain Remove Dressing in: 4 days (Okay to remove dressing on February 28, 2024) Additional Dressing/Incision Instructions:: Follow [facility] Post-op Instructions. Once postoperative dressing has been removed only use gentle soap and water over the incision. Do not use any ointments, Neosporin, salves, alcohol pads over the incision for 6 weeks postoperatively. Do not submerge underwater for 6 weeks postoperatively. Continue with KECIA hose/elastic stockings for 2 weeks postoperatively. May remove at nighttime but needs to be placed back on the leg during the day. Do NOT use alcohol with narcotic pain medication. Do NOT make important decisions while taking narcotic medication. If you have problems with taking your medication (rash, itching, nausea, etc.) call the office at once. Follow Up Care Test Results: Test results from this visit will be discussed in further detail at your follow-up appointment, if applicable. Discharge Plan Admission Admit Date/Time: 02/23/24 16:00 Attending Provider: Myles Iraheta Primary Care Provider: Alfonso Vo Consulting Providers: Teresa Garcia; Eric Prince; Lana Young Discharge Orders/Prescriptions Prescriptions: New acetaminophen 500 mg Tablet 1,000 mg PO Q8H 14 Days Qty: 84 0RF Rx Instructions: Do not take more than 3000 mg Tylenol in a 24-hour period. oxycodone 5 mg Tablet 5 - 10 mg PO Q4H PRN PRN (Reason: as needed for pain) 7 Days Qty: 42 0RF sennosides-docusate sodium [Stimulant Laxative Plus] 8.6-50 mg Tablet 2 tab PO BID 3 Days Qty: 12 0RF Rx Instructions: Take until first bowel movement, then as needed Continued tamsulosin [Flomax] 0.4 mg capsule 0.4 mg PO DAILY spironolactone 25 mg tablet 25 mg PO DAILY Qty: 90 3RF levothyroxine 50 mcg tablet 50 mcg PO QDAY Adult 50 Plus Probiotic 4 billion cell capsule 4,000 mmu cells PO QDAY Rx Instructions: administer with a meal carvedilol 6.25 mg tablet 6.25 mg PO BID Qty: 60 3RF Rx Instructions: must administer with a meal/food omeprazole magnesium [Prilosec OTC] 20 mg tablet,delayed release (DR/EC) 20 mg PO DAILY Xarelto 20 mg tablet 20 mg PO DAILY Qty: 90 4RF Rx Instructions: must administer with a meal/food dapagliflozin propanediol [Farxiga] 10 mg tablet 10 mg PO DAILY Qty: 90 4RF Other Ambulatory Orders: 12 Lead EKG (Routine) Timeframe: 1 Day Location: None Selected Ordered By: Dr. Myles Iraheta Referrals / Follow Up: Physical,Therapy [Other] - 02/26/24 11:00 am Alfonso Vo MD [Primary Care Provider] - Anette Montgomery PA [Med Staff - [facility]] - 03/08/24 3:45 pm Disposition Disposition (needs filled in before D/C Order can be placed): Home, Self Care
[2024-02-24] MEDS: Spironolactone 25 MG Tablet PO (08:27)
[2024-02-24] MEDS: Pantoprazole Sodium 20 MG Tablet PO (08:27)
[2024-02-24] MEDS: Famotidine 20 MG Tablet PO (08:27)
[2024-02-24] MEDS: Rivaroxaban 20 MG Tablet PO (08:27)
[2024-02-24] MEDS: Carvedilol 6.25 MG Tablet PO (08:28)
[2024-02-24] MEDS: Tamsulosin HCl 0.4 MG Capsule PO (08:28)
[2024-02-24] MEDS: Senna/Docusate Sodium 1 Tablet 2 TABLET PO (08:29)
[2024-02-24] MEDS: Empagliflozin 25 MG Tablet PO (08:29)
[2024-02-24 08:37] VITALS: BP 125/64; PULSE 67; RESP 18; TEMP 36.9; O2SAT 96
[2024-02-24] MEDS: oxyCODONE 5 MG Tablet PO (08:49)
--- NOTE | 2024-02-24 09:55 | CASEMGMT ---
VIN ARANA Assessment: Face to Face with pt for initial transition planning/care coordination assessment. VIN ARANA introduced self and role at [facility], pt voices understanding and consents to assessment. Pt is A&O x4 and answers all questions appropriately at this time. Pt lying in bed in no distress. Care providers, pharmacy, and demographics verified/updated. Strata: 2 Admitting Dx: R total knee arthroplasty PCP: Gilda Specialists: Medardo Iraheta; Medardo Palu Preferred Pharmacy: [facility] Insurance: [employer] [facility] Prescription Benefit: yes LNOK: , [place]; Daughter, Yenni Living Arrangements: Pt lives with in a split level home with 1 step to enter into home. ADLs: Pt reports I at baseline. Transportation: Pt drives self and denies concerns with transportation. DME: Walker, Cane, knee walker, shower bench HHC/SNF: Denies Hx of Pt states no concerns with going home at time of dc. Pt states no further concerns/needs. CM to follow. Advised pt to ask CM if any further question/concerns/needs arise, voices understanding. Pt Goal: Home Plan: Home with family support, OP therapy with [facility]. Devon BANUELOS CM
--- NOTE | 2024-02-24 10:14 | CASEMGMT ---
Met with patient to complete CASTILLO form. CASTILLO form explained to patient who voiced understanding and signed form. Original form placed in pt?s chart and copy provided to patient. Kaylee Parra, Discharge Planning Asst
[2024-02-24 12:45] VITALS: BP 101/58; PULSE 59; RESP 18; TEMP 36.6; O2SAT 99
--- NOTE | 2024-02-24 13:22 | PHA.DC.MC.R ---
Pharmacy [facility] Pharmacy Service has performed discharge medication reconciliation and counseling for this patient. 1. ACETAMINOPHEN 1000MG PO Q8 2. OXYCODONE 5-10MG PO Q4H PRN PAIN 3. SENNA/DOCUSATE 2T PO BID UNTIL FIRST BM, THEN BID PRN CONSTIPATION The patient's discharge medication list was reviewed for discrepancies and discrepancies were resolved. The patient was counseled on the following discharge medications and changes in medications for homegoing were reviewed. The Reason for Use, instructions for use, and potential side effects were reviewed for all new medications. The patient's questions regarding all of their medications were answered. The patient was able to verbally demonstrate an understanding of their discharge medications. Medications at Discharge Home Medications tamsulosin 0.4 mg capsule (Flomax) 0.4 mg PO DAILY urine 07/30/21 omeprazole magnesium 20 mg tablet,delayed release (Prilosec OTC) 20 mg PO DAILY stomach 11/06/22 spironolactone 25 mg tablet 25 mg PO DAILY #90 tabs 05/27/23 carvedilol 6.25 mg tablet 6.25 mg PO BID #60 tabs 11/20/23 lactobacillus combination no.9 4 billion cell capsule (Adult 50 Plus Probiotic) 4,000 mmu cells PO QDAY 11/20/23 levothyroxine 50 mcg tablet 50 mcg PO QDAY 11/20/23 dapagliflozin propanediol 10 mg tablet (Farxiga) 10 mg PO DAILY #90 tabs 12/30/23 rivaroxaban 20 mg tablet (Xarelto) 20 mg PO DAILY blood thinner #90 tabs 12/30/23 acetaminophen 500 mg tablet 1,000 mg (2 x 500 mg) PO Q8H 14 days #84 tabs 02/24/24 oxycodone 5 mg tablet 5 - 10 mg (1 - 2 x 5 mg) PO Q4H PRN PRN as needed for pain 7 days #42 tabs 02/24/24 sennosides 8.6 mg-docusate sodium 50 mg tablet (Stimulant Laxative Plus) 2 tab PO BID 3 days #12 tabs 02/24/24
--- NOTE | 2024-02-24 14:19 | PN_ITS ---
Subjective Subjective Patient seen and examined. He had no complaints. Pain was well-controlled. Review of systems otherwise negative. He is postop day 1 for right total knee replacement. Objective Data Objective Data Vital Signs: Vital Signs Temp Pulse Resp BP Pulse Ox O2 Del Method O2 Flow Rate 97.9 F 59 L 18 101/58 L 99 Room Air 4 02/24/24 12:45 02/24/24 12:45 02/24/24 12:45 02/24/24 12:45 02/24/24 12:45 02/24/24 12:45 02/23/24 13:00 Oxygen Flow Rate (L/min) 4 Oxygen Delivery Method Room Air Weight: 157 lb 10.088 oz Body Mass Index (BMI) 23.9 Intake & Output: Intake and Output for Last 24 Hours 02/22/24 02/23/24 02/24/24 23:59 23:59 23:59 Intake Total 3172 / 3172 1850 / 1850 Output Total 300 / 300 Balance 2872 / 2872 1850 / 1850 Lab / Micro Data 02/24/24 06:24 02/24/24 06:24 Labs: Laboratory Results - last 24 hr 02/24/24 06:24: WBC 13.4 H, RBC 3.88 L, Hgb 12.5 L, Hct 37.8 L, MCV 97.4 H, MCH 32.2 H, MCHC 33.1, RDW Std Deviation 47.7 H, RDW Coeff of Jair 13.3, Plt Count 161, MPV 10.0, Sodium 135 L, Potassium 4.2, Chloride 103, Carbon Dioxide 27.0, Anion Gap 5, BUN 22 H, Creatinine 1.30, Estim Creat Clear Calc 49.69, Est GFR (MDRD) Af Amer 70, Est GFR (MDRD) Non-Af 58 L, BUN/Creatinine Ratio 16.9, G lucose 126 H, Calcium 8.2 L Micro: Microbiology 01/29/24 12:15 Swab (Method) Nasal Screen MRSA/MSSA - Final Physical Exam Const alert, oriented x3, no apparent distress and well nourished General Appearance: cooperative and well developed HEENT normocephalic, head/scalp atraumatic, moist oral mucous membranes and oropharynx normal Eyes PERRL and EOMs intact bilaterally Neck no lymphadenopathy, supple and no JVD Lymph Lymphatic: no lymphadenopathy noted and no lymphedema noted Resp normal respiratory effort, normal air movement and clear to auscultation bilaterally Cardio regular rate, regular rhythm, S1 normal heart sound, S2 normal heart sound and no murmurs GI normal to inspection, nondistended, normoactive bowel sounds, soft to palpation, non-tender and non-distended Extremity normal capillary refill, no clubbing, cyanosis or edema and no calf tenderness Extremity Narrative: right knee wrapped in bandage. General Extremity: no tenderness to palpation of joints or extremities Skin Skin Narrative: as under extremities Neuro CN's II-XII intact bilaterally and no focal motor deficits Psych thought process normal and cooperative Appearance: appropriate Assessment & Plan Assessment/Plan (1) Status post total right knee replacement: (2) Osteoarthritis of right knee: PLAN: Plan #Severe osteoarthritis s/p right total knee replacement * Today's postop day 1. Management as per orthopedic surgery. * Incentive spirometer. * PT OT on board. * Fall precautions. * #Paroxysmal A-fib: On Coreg. On Xarelto. #Nonischemic cardiomyopathy * Has known EF of 40%. 2D echo from 19 December 2023 showed mild to moderate global hypokinesis with pulmonary artery systolic pressure of 40 mmHg * Follow-up with cardiology on outpatient basis #Hypertension: On Coreg and spironolactone. IV hydralazine as needed #BPH with obstructive uropathy: On Flomax #Hypothyroidism: On Synthroid #GERD: On PPI DVT prophylaxis: On Xarelto which will be resumed per orthopedic surgery today. Thank you for the courtesy of the consult. Hospitalist service will continue to follow with you. Charges/Coding Visit Charges Inpatient E&M: 56721 Subs Hosp L2
== END 2024-02-24 13:03 | disposition home or self-care (01) ==
LOC: MS3 02-24 08:32 → SDC 02-24 09:17 → AC 02-24 09:18 → SDC 02-24 09:18 → MS3 02-24 09:18
PROVIDERS: Anesthesiology; Admitting Provider Specialist; PCP Family Medicine; Referring Provider Specialist; Visit Provider Specialist
PROC: 0SRC0JZ Replacement of Right Knee Joint with Synthetic Substitute, Open Approach (ICD-10-PCS; CPT 27447; principal; 2024-02-23 09:30)
DX: M17.11 Unilateral primary osteoarthritis, right knee (principal); I50.9 Heart failure, unspecified; I13.0 Hypertensive heart and chronic kidney disease with heart failure and stage 1 through stage 4 chronic kidney disease, or unspecified chronic kidney disease; I48.0 Paroxysmal atrial fibrillation; I48.92 Unspecified atrial flutter; I42.8 Other cardiomyopathies; I25.10 Atherosclerotic heart disease of native coronary artery without angina pectoris; N18.9 Chronic kidney disease, unspecified; G47.00 Insomnia, unspecified; N40.1 Benign prostatic hyperplasia with lower urinary tract symptoms; Z79.01 Long term (current) use of anticoagulants; Z79.899 Other long term (current) drug therapy; Z79.890 Hormone replacement therapy; Z79.84 Long term (current) use of oral hypoglycemic drugs; E03.9 Hypothyroidism, unspecified; N13.8 Other obstructive and reflux uropathy; K21.9 Gastro-esophageal reflux disease without esophagitis; F17.220 Nicotine dependence, chewing tobacco, uncomplicated
CPT/HCPCS: 27447; S2900; 01402; 64447; 36415; 73560; 80048; 82040; 82962; 83735; 84443; 85025; 85027; 87081; 88305; 88311; 93005; 94668; 96365; 96366; 97162; 97166; 99221; 99252; 99406; C1776; G0378; G0463; J2405; J3475

== ENCOUNTER → 2024-02-26 | Outpatient (CLI) | payer MEDICARE, SELFPAY ==
--- NOTE | 2024-02-26 14:58 | VDLE_ITS ---
Reason For Study: Right leg pain RIGHT LEFT GSV is normal. CFV is compressible, spontaneous, phasic, CFV is compressible, spontaneous, phasic, competent, and demonstrates normal competent and demonstrates normal augmentation. augmentation. FV is compressible, spontaneous, phasic, competent and demonstrates normal augmentation. POP V is compressible, spontaneous, phasic, competent and demonstrates normal augmentation. T/P Trunk is compressible. PTV is compressible. RT PerV is compressible. Procedure This is a venous duplex using B-mode, color flow and spectral Doppler. Exam performed in department. A preliminary report was called and/or faxed to Dr. Lundberg. VL/Venous Duplex US, Unilateral Interpretation Summary Deep veins of the right lower extremity are patent and compressible segmentally . There is no evidence of right lower extremity deep vein thrombosis. The right great sapheno us vein appears patent and compressible segmentally. Ordering Physician: Bin Lundberg Referring Physician: Alfonso Vo Performed By: Lien Bustamante RVT
== END | disposition home or self-care (01) ==
PROVIDERS: PCP Family Medicine; Referring Provider Physician Assistant Surgical; Visit Provider Physician Assistant Surgical
DX: M79.661 Pain in right lower leg (principal)
CPT/HCPCS: 93971

== ENCOUNTER → 2024-05-21 | Outpatient (CLI) | payer MEDICARE, SELFPAY ==
[2024-05-21 12:48] LABS: Absolute Lymphocyte Count 1.64 X10^3/uL (0.83-4.51); Absolute Neutrophil Count 5.8 X10^3/uL (2.0-7.7); Basophil# 0.08 X10^3/uL; Basophil% 0.9 % (0-1); Eosinophils% 4.4 % (0-5); Hematocrit 47.8 % (40-54); Hemoglobin 15.5 g/dL (13.0-16.5); Lymphocyte # 1.64 X10^3/ul (0.83-4.51); Lymphocyte % 18.2 % (19-41); Mean Corp Hgb Conc 32.4 g/dL (32-36); Mean Corpuscular Hgb 31.7 pg (27.0-32.0); Mean Corpuscular Volume 97.8 fL (80-94); Mean Platelet Vol. 9.8 fl (6.2-12.0); Monocyte# 1.09 X10^3/uL; Monocyte% 12.1 % (0-10); NRBC Flagged by Analyzer 0 % (0-5); Neutrophil # 5.75 X10^3/uL (2.7-7.7); Neutrophil % 64.1 % (47-70); Platelet Count 230 K/mm3 (150-450); RBC Distribution Width CV 13.1 % (11.6-14.6); RBC Distribution Width SD 46.5 fl (35.1-43.9); Red Blood Count 4.89 M/mm3 (4.6-6.2)
[2024-05-21 13:33] LABS: Anion Gap 10 (5-15); BUN 21 mg/dL (4-19); BUN/Creat Ratio 16.7 RATIO (10-20); Calcium,Total 9.4 mg/dL (7.6-11.0); Carbon Dioxide 27.1 mmol/L (21.0-32.0); Chloride 101 mmol/L (98-108); Creatinine, Serum 1.26 mg/dL (0.70-1.20); EST Glomerular Filtration Rate 61 (>60); Glucose 107 mg/dL (70-99); Pro- Brain NATRIURETIC PEPTIDE 3061 pg/mL (<=900); Sodium Level 139 mmol/L (133-145)
== END | disposition home or self-care (01) ==
LOC: LAB 12:25
PROVIDERS: PCP Family Medicine; Referring Provider Physician Assistant Medical; Visit Provider Physician Assistant Medical
DX: R06.09 Other forms of dyspnea (principal); I48.0 Paroxysmal atrial fibrillation
CPT/HCPCS: 36415; 80048; 83880; 84443; 85025

== ENCOUNTER → 2024-05-25 | Outpatient (CLI) | payer MEDICARE, SELFPAY | END | disposition home or self-care (01) | LOC: PSN 09:29 | PROVIDERS: PCP Family Medicine; Referring Provider Physician Assistant Medical; Visit Provider Physician Assistant Medical | DX: R06.09 Other forms of dyspnea (principal); I48.0 Paroxysmal atrial fibrillation | CPT/HCPCS: 93225; 93226 ==

== ENCOUNTER → 2024-06-03 | Outpatient (CLI) | payer MEDICARE, SELFPAY ==
[2024-06-03 10:03] LABS: Anion Gap 11 (5-15); BUN 24 mg/dL (4-19); BUN/Creat Ratio 17.7 RATIO (10-20); Carbon Dioxide 26.9 mmol/L (21.0-32.0); Chloride 99 mmol/L (98-108); Creatinine, Serum 1.33 mg/dL (0.70-1.20); EST Glomerular Filtration Rate 56 (>60); Glucose 110 mg/dL (70-99); Potassium 4.5 mmol/L (3.3-5.1); Sodium Level 137 mmol/L (133-145)
== END | disposition home or self-care (01) ==
LOC: LAB 08:37
PROVIDERS: PCP Family Medicine; Referring Provider Physician Assistant Medical; Visit Provider Physician Assistant Medical
DX: I42.9 Cardiomyopathy, unspecified (principal)
CPT/HCPCS: 36415; 80048

== ENCOUNTER 2024-06-08 10:33 | Day surgery (SDC) | payer MEDICARE, SELFPAY ==
--- NOTE | 2024-06-04 13:45 | RAD_ITS ---
PROCEDURE: CHEST PA AND LATERAL 06/04/2024 REASON FOR EXAM: SOB TECHNIQUE: Frontal and lateral views of the chest. COMPARISON: None FINDINGS: Hardware: None Heart: The heart size is normal. Mediastinum: Tortuosity of the thoracic aorta. Lungs: The lungs are clear. Bones: Degenerative changes are identified within the thoracic spine. Osteoarthritis of both shoulders worse on the right side. RAD/Chest PA and Lateral IMPRESSION: NO ACUTE FINDINGS. Reading Location: [id number]
[2024-06-07 07:53] VITALS: BMI 23.6
--- NOTE | 2024-06-08 12:25 | PRO.PCM_ITS ---
Non-invasive Procedural Procedure Information Date of Procedure: 06/08/24 Pre-Procedure Diagnosis: Atrial fibrillation Post-Procedure Diagnosis: Same Procedure Performed:: DC cardioversion cesspool cleaner: No Procedure Time Out: Procedure Start Time: Procedure Stop Time: Special Medications: 40 mg of intravenous propofol Description of procedure: Patient was brought to the cardiac catheterization lab in the postabsorptive nonsedated state. Informed consent was obtained. Anterior-posterior pads were applied. The patient was seen by Dr. Ramsey of the critical care division. 40 mg of intravenous propofol was administered and then 200 J of synchronized DC biphasic cardioversion energy were applied with prompt reversal to sinus rhythm. Patient tolerated the procedure well. Procedure findings: Successful DC cardioversion from atrial fibrillation to sinus rhythm. Follow-up as per office protocol. Repeat echocardiogram in 3 months.
--- NOTE | 2024-06-08 12:55 | PCM.OP.PRO2 ---
Procedures Pulmonary Pulmonary Procedures /Diagnostic Testin Con Sedation Non-invasive Procedural Procedure Information Date of Procedure: 06/08/24 Description of procedure: CONSCIOUS SEDATION REPORT DATE OF SERVICE: June 08, 2024 BRIEF HISTORY OF PRESENT ILLNESS: The patient is a 74-year-old male who presented to [facility] for elective outpatient cardioversion due to underlying atrial fibrillation. The patient denied a history of obstructive sleep apnea, COPD or asthma. He denied any prior anesthetic complications. The patient is systemically anticoagulated on Xarelto. His last surface echocardiogram demonstrated an ejection fraction of 60%. PHYSICAL EXAMINATION: VITAL SIGNS: Reviewed and were acceptable. GENERAL: The patient is a , in no apparent distress, speaking in full sentences. HEENT: Normocephalic, atraumatic. Mucous membranes are moist and pink. Good mouth opening noted. Trachea is midline. MPI CHEST: S1, S2 irregularly irregular. No murmurs, rubs or gallops were noted. LUNGS: Clear to auscultation bilaterally without appreciable wheezes, rales or rhonchi. ABDOMEN: Soft, nontender, nondistended. Positive bowel sounds. EXTREMITIES: There is no clubbing, cyanosis or edema. ASA Class: II DESCRIPTION OF PROCEDURE: After confirmation of informed consent, the patient's anesthesia plan was reviewed in detail. Propofol was chosen. Risks and benefits were reviewed and the patient agreed to proceed. At 1219, the patient was given 40 mg of propofol. The patient achieved an appropriate level of sedation and was given a 200 joule synchronized cardioversion by Dr. Brown at the bedside. This was successful in achieving normal sinus rhythm. The patient was monitored until 1233, at which time he reached his baseline mental status and function. The patient tolerated the procedure well. COMPLICATIONS: None ESTIMATED BLOOD LOSS: None RECOMMENDATIONS: Okay to recover in usual fashion.
== END 2024-06-08 13:25 | disposition home or self-care (01) ==
PROVIDERS: PCP Family Medicine; Referring Provider Internal Medicine Cardiovascular Disease; Visit Provider Internal Medicine Cardiovascular Disease
DX: I48.91 Unspecified atrial fibrillation (principal); I42.8 Other cardiomyopathies; I10 Essential (primary) hypertension; E78.5 Hyperlipidemia, unspecified; I25.2 Old myocardial infarction; F17.220 Nicotine dependence, chewing tobacco, uncomplicated; Z79.01 Long term (current) use of anticoagulants; Z79.899 Other long term (current) drug therapy
CPT/HCPCS: 71046; 92960; 93005

== ENCOUNTER → 2024-07-16 | Outpatient (CLI) | payer MEDICARE, SELFPAY ==
[2024-07-16 10:11] LABS: Absolute Lymphocyte Count 0.55 X10^3/uL (0.83-4.51); Absolute Neutrophil Count 9.8 X10^3/uL (2.0-7.7); Basophil# 0.02 X10^3/uL; Basophil% 0.2 % (0-1); Hematocrit 45.6 % (40-54); Hemoglobin 15.3 g/dL (13.0-16.5); Lymphocyte # 0.55 X10^3/ul (0.83-4.51); Mean Corp Hgb Conc 33.6 g/dL (32-36); Mean Corpuscular Hgb 32.4 pg (27.0-32.0); Mean Corpuscular Volume 96.6 fL (80-94); Mean Platelet Vol. 10.9 fl (6.2-12.0); Monocyte# 0.53 X10^3/uL; Monocyte% 4.8 % (0-10); NRBC Flagged by Analyzer 0 % (0-5); Neutrophil # 9.79 X10^3/uL (2.7-7.7); Neutrophil % 89.5 % (47-70); POSITIVE DIFFERENTIAL YES; Platelet Count 190 K/mm3 (150-450); RBC Distribution Width CV 13.4 % (11.6-14.6); Red Blood Count 4.72 M/mm3 (4.6-6.2); White Blood Count 10.9 K/mm3 (4.4-11.0)
[2024-07-16 11:16] LABS: Pro- Brain NATRIURETIC PEPTIDE 3888 pg/mL (<=900)
[2024-07-16 11:22] LABS: Anion Gap 10 (5-15); BUN 23 mg/dL (4-19); BUN/Creat Ratio 17.4 RATIO (10-20); Calcium,Total 9.1 mg/dL (7.6-11.0); Chloride 102 mmol/L (98-108); Creatinine, Serum 1.33 mg/dL (0.70-1.20); EST Glomerular Filtration Rate 56 (>60); Glucose 124 mg/dL (70-99); Potassium 4.7 mmol/L (3.3-5.1); Sodium Level 136 mmol/L (133-145)
== END | disposition home or self-care (01) ==
LOC: LAB 09:26
PROVIDERS: PCP Family Medicine; Referring Provider Physician Assistant Medical; Visit Provider Physician Assistant Medical
DX: I50.22 Chronic systolic (congestive) heart failure (principal); R06.02 Shortness of breath
CPT/HCPCS: 36415; 80048; 83880; 85025

== ENCOUNTER → 2024-07-21 | Outpatient (CLI) | payer MEDICARE, SELFPAY ==
--- OUTSIDE RECORDS SUMMARY | 2024-07-21 06:44 | XMS RPT_ITS | CCD ---
Author Organization [facility] Care Team Providers Care Hand Collator Name Role Phone Eben Vo Unavailable [phone] Eben Vo Attending Unavailable Stencel, Eben Primary Care Unavailable Lavelle Boone Attending Unavailable Stencel, Eben Primary Care Unavailable Stencel, Eben Admitting Unavailable Stencel, Eben Attending Unavailable Stencel, Eben Primary Care Unavailable Lavelle Boone Attending Unavailable Stencel, Eben Primary Care Unavailable BooneLavelle mathews Attending Unavailable Stencel, Eben Primary Care Unavailable Radha Wheeler Attending Unavailable Stencel, Eben Primary Care Unavailable uHng Villalobos Attending Unavailable Stencel, Eben Primary Care Unavailable Lavelle Boone Unavailable Unavailable Stencel, Eben Mathews Unavailable Unavailable Stencel, Eben D Unavailable Unavailable Stencel, Eben Unavailable Delphine Childress Unavailable Unavailable Lavelle Boone Unavailable Eben Vo MD Primary Care Provider Eben Vo Unavailable Unavailable Unavailable REJI ROSE Admitting Unavaila ble REJI ROSE Attending Unavaila ble STENEBEN JASON Primary Care Unavailab REJI Caldwell Admitting Unavaila ble EBEN VO Primary Care Unavailab le RACHAEL KHAN Attending Unavailable Eben Vo MD Primary Care Provider Lavelle Boone MD Primary Care Provider Dr. Eben Vo Primary Care Provider [phone] Dr. Eben Vo Referring Provider Stuart WEB PRESS JOGGER, KENNAC Valentina Attending Provider Dr. Dale Boone Primary Care Provider Dr. Rashard Victor Attending Provider Unavailable Unavailable Dr. Eben Vo Referring Provider Stuart WEB PRESS JOGGER, WEB PRESS JOGGER-C Valentina Attending Provider Dr. Dale Boone Referring Provider Eben Vo MD Primary Care Provider Dr. Eben Vo Primary Care Unava ilable Jadiel, Dr. Lavelle Luna Referring Unav ailable Sage, Ashley Attending Unavailable Sage Ashley Admitting Unavailable Lavelle Boone MD Unavailable Lavelle Boone MD Unavailable Unavailab le Eben Vo MD Primary Care Provider Dr. Dale Boone Primary Care Provider Dr. Dale Boone Referring Provider Stuart WEB PRESS JOGGER, WEB PRESS JOGGER-C Valentina Attending Provider Dr. Louie Brown Attending Provider Dr. Louie Brown Referring Provider Dr. Tavo Wu Emergency Provider Dr. Lana Young Admit Provider Hector, Dr. Lana Nunez Other Provider Dr. Alfonso Blackwood Attending Provider Dr. Lana Young Attending Provider Lavelle Boone MD Unavailable Moustapha BANUELOS, Lucille Unavailable Unavailable Dr. Dale Boone Primary Care Provider Dr. Dale Boone Referring Provider Stuart WEB PRESS JOGGER, WEB PRESS JOGGER-C Valentina Attending Provider Dr. Louie Brown Attending Provider Dr. Louie Brown Referring Provider Dr. Tavo Wu Emergency Provider Hector, Dr. Lana Nunez Admit Provider Hector, Dr. Lana Nunez Other Provider Dr. Alfonso Blackwood Attending Provider Hector, Dr. Lana Nunez Attending Provider Dr. Louie Brown Other Provider Dr. Dale Boone Primary Care Provider Stuart WEB PRESS JOGGER, WEB PRESS JOGGER-C Valentina Attending Provider Dr. Dale Boone Referring Provider Stuart WEB PRESS JOGGER, WEB PRESS JOGGER-C Valentina Other Provider Dr. Eben Vo Primary Care Provider Dr. Remington Liu Attending Provider Eben Vo MD Unavailable Dr. Dale Boone Primary Care Provider Stuart WEB PRESS JOGGER, WEB PRESS JOGGER-C Valentina Attending Provider Dr. Louie Brown Attending Provider [phone] Louie Brown Referring Provider [phone] Eben Vo Referring Provider Dr. Jorge Angulo Attending Provider Dr. Dale Boone Primary Care Provider Dr. Dale Boone Referring Provider Stuart WEB PRESS JOGGER, WEB PRESS JOGGER-C Valentina Attending Provider Dr. Louie Brown Attending Provider [phone] Louie Brown Other Provider Dr. Jorge Angulo Other Provider Dr. Eben Vo Primary Care Provider Dr. Louie Brown Attending Provider [phone] Louie Brown Referring Provider Dr. Dale Boone Referring Provider Stuart WEB PRESS JOGGER, WEB PRESS JOGGERMigelC Valentina Attending Provider Dr. Eben Vo Referring Provider Dr. Jorge Angulo Attending Provider Dr. Jorge Angulo Other Provider STENCEL, EBEN D Referring Unavailable STENCEL, EBEN D Primary Care Unavailable STENCEL, EBEN D Referring Unavailable STENCEL, EBEN D Primary Care Unavailable THOMAE, ASHLEY R Referring Unavailable STENCEL, EBEN D Primary Care Unavailable STENCEL, EBEN D Primary Care Unavailable STENCEL, EBEN D Primary Care Unavailable STENCEL, EBEN D Primary Care Unavailable STENCEL, EBEN D Primary Care Unavailable Stencel Eben QUACH Unavailable [phone] Eben Vo MD Primary Care Provider [phone] Lavelle Boone MD Primary Care Provider Alka Preciado OD Unavailable Eben Vo MD Primary Care Provider [phone] Thomae DO, Ashley R Unavailable THOMAE, ASHLEY R Attending Unavailable STENCEL, EBEN D Primary Care Unavailable THOMAE, ASHLEY R Attending Unavailable STENCEL, EBEN D Primary Care Unavailable STENCEL, EBEN D Attending Unavailable STENCEL, EBEN D Referring Unavailable STENCEL, EBEN D Primary Care Unavailable THOMAE, ASHLEY R Attending Unavailable STENCEL, EBEN D Primary Care Unavailable STENCEL, EBEN D Attending Unavailable STENCEL, EBEN D Primary Care Unavailable STENCEL, EBEN D Attending Unavailable STENCEL, EBEN D Referring Unavailable STENCEL, EBEN D Primary Care Unavailable Stencel Dr. Eben QUACH Primary Care Provider Dr. Myles Iraheta MD Attending Provider [phone] Dr. Myles Iraheta MD Referring Provider Connie QUACH, Dr. Bueno Admit Provider Dr. Teresa Garcia MD Other Provider Dr. Eric Prince MD Other Provider Hector QUACH, Dr. Lana Nunez Other Provider Connie QUACH, Dr. Bueno Other Provider Adele KEE, Dr. Marrero Other Provider Leander QUACH, Dr. Elizabeth Saha Attending Provider Hector QUACH, Dr. Lana Nunez Attending Provider Eshenaur PA-C, Ray Attending Provider Eshenaur PA-C, Ray Referring Provider Kane QUACH, Dr. Mock Attending Provider Gilda QUACH, Dr. Hamilton Referring Provider Valerie Hooper Attending Provider Unavailable Nimo Petty Attending Provider Nimo Petty Referring Provider [phone] ABELARDO RIVERA Attending Unavailable LAVELLE BOONE Primary Care Unavaila ble RIVERA, ABELARDO K Referring Unavailable RIVERA, ABELARDO K Referring Unavailable RIVERA, ABELARDO Villa Attending Unavailable LAVELLE BOONE Primary Care Unavaila ble RIVERA, ABELARDO Villa Referring Unavailable LAVELLE BOONE Primary Care Unavaila ble LAUREN WALTERS Attending Unavailable Gilda QUACH, Dr. Hamilton Primary Care Provider [phone] Connie QUACH, Dr. Bueno Attending Provider [phone] Myles Iraheta MD Referring Provider [phone] EBEN VO Primary Care Unavailab le REJI ROSE Attending Unavaila ble STENCEL, EBEN LUNA Primary Care Unavailab le REJI ROSE Attending Unavaila ble STENCELEBEN Primary Care Unavailab le REJI ROSE Attending Unavaila ble STENCEL, EBEN LUNA Primary Care Unavailab le REJI ROSE Referring Unavaila ble REJI ROSE Admitting Unavaila ble GILDA, EBEN LUNA Primary Care Unavailab le REJI ROSE Attending Unavaila ble STENCEL, EBEN LUNA Primary Care Unavailab le REJI ROSE Attending Unavaila ble STENCEL, EBEN LUNA Primary Care Unavailab le REJI ROSE Attending Unavaila ble STENCEL, EBEN CHERYL Primary Care Unavailab REJI Caldwell Attending Unavaila ble Stencel, Eben Referring Unavailable Stencel, Eben Primary Care Unavailable Luz Maria SHARMA, Nimo Preston Attending Unavail able Stencel, Eben Referring Unavailable Stencel, Eben Primary Care Unavailable Kevin, [place] Attending Unavailable Stencel, Eben Referring Unavailable Kevin, Louie Attending Unavailable Stencel, Eben Primary Care Unavailable Stencel, Eben Primary Care Unavailable Stencel, Eben Referring Unavailable Valerie Hooper Attending Unavailable Stencel, Eben Primary Care Unavailable Luz Maria SHARMA, Nimo Preston Attending Unavail able Luz Maria PA, Nimo Preston Referring Unavail able Luz Maria SHARMA, Nimo Preston Attending Unavail able Luz Maria SHARMA, Nimo Preston Referring Unavail able Stencel, Eben Primary Care Unavailable Stencel, Eben Primary Care Unavailable Luz Maria SHARMA, Nimo Preston Attending Unavail able Luz Maria SHARMA, Nimo Preston Referring Unavail able Stencel, Eben Primary Care Unavailable Myles Iraheta Attending Unavailable Connie, Myles Referring Unavailable Stencel, Eben Primary Care Unavailable Tamika SHARMA, Bin Referring Unavailable Bin Naqvi Attending Unavailable Stencel, Eben Primary Care Unavailable Luz Maria SHARMA, Nimo Preston Attending Unavail able Luz Maria SHARMA, Nimo Preston Referring Unavail able Stencel, Eben Primary Care Unavailable Tamika SHARMA, Ray Referring Unavailable Nish Middleton Attending Unavailable Stencel, Eben Primary Care Unavailable Kevin, Louie Consulting Unavailable Kevin, Louie Referring Unavailable Kevin, [place] Attending Unavailable Fitz Ramsey Attending Unavailable Kevin, [place] Consulting Unavailable Kevin, [place] Referring Unavailable Stencel, Eben Primary Care Unavailable Stencel, Eben Primary Care Unavailable Elizabeth Tabor Attending Unavailable Connie, Myles Admitting Unavailable Janes Angulo Consulting Unavailable Myles Iraheta Referring Unavailable Paintsil, [place] Consulting Unavailable Eric Prince Consulting Unavailable Myles Iraheta Consulting Unavailable Stencel, Eben Primary Care Unavailable Paintsil, [place] Consulting Unavailable Jorgeam, Lana Mayra Attending Unavailable Connie, Myles Admitting Unavailable Connie, Myles Referring Unavailable Eric Prince Consulting Unavailable Jorgeam, Lana Mayra Consulting Unavailable Connie Myles Consulting Unavailable Kevin, [place] Attending Unavailable Stencel, Eben Primary Care Unavailable Kevin, Louie Attending Unavailable Luz Maria SHARMA, Nimo Preston Referring Unavail able Stencel, Eben Primary Care Unavailable Kevin, [place] Referring Unavailable Stencel, Eben Primary Care Unavailable Kevin, Louie Attending Unavailable Kevin, [place] Attending Unavailable Kevin, Louie Referring Unavailable Stencel, Eben Primary Care Unavailable Kevin, Louie Referring Unavailable Kevin, Louie Attending Unavailable Stencel, Eben Primary Care Unavailable Kevin, Louie Referring Unavailable Stencel, Eben Primary Care Unavailable Kevin, [place] Attending Unavailable Luz Maria SHARMA, Nimo Preston Attending Unavail able Luz Maria SHARMA, Nimo Preston Referring Unavail able Stencel, Eben Primary Care Unavailable Stencel, Eben Primary Care Unavailable Paintsil, [place] Consulting Unavailable Connie, Myles Admitting Unavailable Connie, Myles Attending Unavailable Connie, Myles Referring Unavailable KotsEric moon F Consulting Unavailable Koram, Lana Mayra Consulting Unavailable Allergies Allergy Classification Reported Allergen(s) Allergy Type Date of Onset Reaction(s) Facility Sulfonamides (antibiotic) (1 source) Sulfonamides (Antibiotic) Drug Allergy Other [facility] Comment on above: mouth sores (20 sources) sulfamethoxazole / trimethoprim; Translations: [SULFAMETHOXAZOLE-T RIMETHOPRIM] Drug Allergy 08-14-19 18 Other (See Comments), Other: See Comments, Other [facility] (1 source) No Known Medication Allergies; Translations: [No Known Medication Allergies] Propensity to adverse reactions to drug (disorder) [facility] (14 sources) Sulfonamides (Antibiotic); Translations: [Sulfa Drugs] drug allergy Other [facility] Work Phone: Comment on above: mouth sores (20 sources) Sulfonamides (Antibiotic); Translations: [SULFA (SULFONAMIDE ANTIBIOTICS)] Propensity to adverse reactions to drug 11-21-19 21 sores in mouth [facility] (20 sources) Sulfamethoxazole; Translations: [SULFAMETHOXAZOLE] Drug Allergy 11-10-19 19 Other: See Comments [facility] (16 sources) Sulfonamides (Antibiotic) Allergy to substance 12-06-19 22 sores in mouth [facility] (6 sources) Amiodarone; Translations: [AMIODARONE] Drug Allergy 02-22-19 Other (See Comments), Other: See Comments [facility] (1 source) Amiodarone Drug Allergy 06-05-19 [facility] (1 source) Sulfamethoxazole Drug Allergy 06-05-19 [facility] (1 source) Sulfonamides (Antibiotic) Drug allergy (disorder) 06-05-19 [facility] Medications Current Medications Medication Drug Class(es) Dates Sig (Normalized) Sig (Original) acetaminophen 500 mg oral tablet (20 sources) Start: 02-24-2024 Acetaminophen 500 mg Tablet Active 1000 mg PO Q8H 84 February 24, 2024 1:00am Do not take more than 3000 mg Tylenol in a 24-hour period. Start: 03-25-2018 End: 03-26-2018 take 2 tablets by mouth every eight hours Acetaminophen 500 MG tablet Discontinued 1000 mg PO EVERY 8 HOURS March 25, 2018 1:00am March 26, 2018 11:54am Start: 03-25-2018 End: 03-26-2018 take 1000 mg by mouth every eight hours Acetaminophen Discontinued 1000 MG PO EVERY 8 HOURS March 25, 2018 1:00am March 26, 2018 11:54am Start: 05-10-2015 End: 01-18-2021 take 2 tablets by mouth every six hours as needed for pain Acetaminophen 325 MG tablet Discontinued 650 mg PO EVERY 6 HOURS NEEDED as needed for Pain May 10, 2015 12:00am January 18, 2021 11:29am Start: 05-10-2015 End: 01-18-2021 take 650 mg by mouth every six hours as needed Acetaminophen Discontinued 650 MG PO EVERY 6 HOURS NEEDED May 10, 2015 12:00am January 18, 2021 11:29am ASCORBIC ACID, VITAMIN C, ORAL (1 source) ASCORBIC ACID, V ITAMIN C, ORAL Indications: Open angle with borderline findings and low glaucoma risk in both eyes Take by mouth. Active benoxinate hydrochloride 4 mg/ml / fluorescein sodium 3 mg/ml ophthalmic solution (2 sources) Diagnostic Dye Start: 05-27-2024 End: 05-28-2024 fluorescein-benoxinate 0.3-0.4 % 1 drop (FLURESS) Start: 05-27-2024 End: 05-28-2024 1 drop, BOTH EYES, DIRECT ED, Starting on Fri05/27/24 at 1300, Until Fri05/28/24 at 0059, Administer for applanation tonometry. In the event of a Fluress shortage, administer Ladi-Fluor 1 drop into both eyes as directed for applanation tonometry carvedilol 12.5 mg oral tablet (20 sources) alpha-Adrenergic Ranjan, beta-Adrenergic Ranjan Start: 05-21-2024 take 1 tablet by mouth twice daily at mealtime Carvedilol 12.5 mg tablet Active 12.5 mg PO TWICE A DAY 180 May 21, 2024 12:11pm must administer with a meal/food Start: 11-20-2023 End: 05-21-2024 take 1 tablet by mouth twice daily at mealtime Carvedilol 6.25 mg tablet Discontinued 6.25 mg PO TWICE A DAY 180 April 08, 2024 11:44am May 21, 2024 12:12pm must administer with a meal/food Start: 12-25-2022 End: 12-30-2022 take 2 tablets by mouth twice daily at mealtime Carvedilol 6.25 mg tablet Discontinued 12.5 mg PO TWICE A DAY December 25, 2022 11:59am December 30, 2022 10:14am must administer with a meal/food Start: 12-25-2022 End: 12-30-2022 take 12.5 mg by mouth twice daily at mealtime Carvedilol Discontinued 12.5 MG PO TWICE A DAY December 25, 2022 11:59am December 30, 2022 10:14am must administer with a meal/food Start: 12-20-2022 take 2 tablets by [facility] twice daily at mealtime carvedilol (COREG) 3.125 mg tablet Take 6.25 mg by mouth two times a day with meals. 12/20/2022 Active Start: 12-17-2022 End: 12-25-2022 take 1 tablet by mouth twice daily at mealtime Carvedilol 6.25 mg tablet Discontinued 6.25 mg PO TWICE A DAY 180 December 17, 2022 9:36am December 25, 2022 11:36am must administer with a meal/food Start: 12-13-2022 End: 12-17-2022 take 2 tablets by mouth twice daily at mealtime Carvedilol 3.125 mg tablet Discontinued 6.25 mg PO TWICE A DAY 60 December 13, 2022 4:24pm December 17, 2022 9:34am must administer with a meal/food Start: 12-13-2022 End: 12-17-2022 take 6.25 mg by mouth twice daily at mealtime Carvedilol Discontinued 6.25 MG PO TWICE A DAY 60 December 13, 2022 4:24pm December 17, 2022 9:34am must administer with a meal/food Start: 11-27-2022 End: 11-20-2023 take 1 tablet by mouth twice daily at mealtime Carvedilol 12.5 mg tablet Discontinued 12.5 mg PO TWICE A DAY 180 April 30, 2023 12:00am November 20, 2023 10:14am must administer with a meal/food Start: 11-27-2022 End: 12-13-2022 take 1 tablet by mouth twice daily at mealtime Carvedilol 3.125 mg tablet Discontinued 3.125 mg PO TWICE A DAY 60 November 27, 2022 12:00am December 13, 2022 4:24pm must administer with a meal/food cholecalciferol 0.01 mg oral capsule (4 sources) Vitamin D cholecalciferol, vitamin D3, 10 mcg (400 unit) cap Indications: Open angle with borderline findings and low glaucoma risk in both eyes Take by mouth as directed. Active cholecalciferol, vitamin D3, (Vitamin D3) 10 mcg (400 unit) cap Take by mouth . Active cholecalciferol (Vitamin D-3) 400 unit capsule Take by mouth. Active ciclopirox 80 mg/ml topical solution (5 sources) Start: 11-13-2023 End: 02-11-2024 ciclopirox (PENLAC) 8 % solu tion Apply topically nightly Apply over nail and surrounding skin. Apply daily over previous coat. After seven (7) days, may remove with alcohol and continue cycle. . 6.6 mL 1 11/13/2023 02/11/2024 Active Start: 01-03-2022 End: 04-03-2022 ciclopirox (Penlac) 8 % solu tion Apply topically nightly Apply over nail and surrounding skin. Apply daily over previous coat. After seven (7) days, may remove with alcohol and continue cycle. . 6.6 mL 1 01/03/2022 04/03/2022 Active Start: 11-23-2020 End: 02-21-2021 ciclopirox (Penlac) 8 % solu tion Apply topically nightly Apply over nail and surrounding skin. Apply daily over previous coat. After seven (7) days, may remove with alcohol and continue cycle. . 6.6 mL 1 11/23/2020 02/21/2021 Active docusate sodium 50 mg / sennosides, prison 8.6 mg oral tablet (2 sources) Start: 02-24-2024 Sennosides-Doc usate Sodium (Stimulant Laxative Plus) 8.6-50 mg Tablet Active 2 {tbl} PO TWICE A DAY 01 19February 24, 2024 1:00am Take until first bowel movement, then as needed doxycycline monohydrate 100 mg oral tablet (4 sources) Tetracyclin e-class Drug Start: 04-13-2021 End: 04-26-2021 take 1 tablet by mouth twice daily doxycycline monohydrate (ADOXA) 100 MG tablet Take 1 (one) tablet (100 mg total) by mouth 2 (two) times a day for 7 days . 14 tablet 0 04/19/2021 04/26/2021 Active Start: 04-11-2021 End: 04-21-2021 take 1 tablet by mouth twice daily doxycycline hyclate (VIBRA-TABS) 100 MG tablet Take 1 (one) tablet (100 mg total) by mouth 2 (two) times a day for 10 days . 20 tablet 0 04/11/2021 04/21/2021 Active furosemide 20 mg oral tablet (20 sources) Loop Diuretic Start: 05-21-2024 take 1 tablet by mouth once daily in the morning Furosemide (Lasix) 20 mg tablet Active 20 mg PO EVERY MORNING May 21, 2024 12:00am Start: 01-14-2023 End: 05-27-2023 take 1 tablet by mouth once daily Furosemide 40 mg tablet Discontinued 40 mg PO DAILY March 06, 2023 12:59pm May 27, 2023 10:05am Start: 12-25-2022 End: 01-06-2023 take 1 tablet by mouth once daily Furosemide 40 mg tablet Discontinued 40 mg PO DAILY December 25, 2022 11:58am January 06, 2023 12:41pm Start: 11-27-2022 End: 06-05-2023 take 1 tablet by mouth twice daily Furosemide 40 mg tablet Discontinued 40 mg PO TWICE A DAY January 06, 2023 12:41pm January 14, 2023 5:08pm Start: 11-27-2022 End: 12-13-2022 take 1 tablet by mouth once daily Furosemide 40 mg tablet Discontinued 40 mg PO DAILY November 27, 2022 2:17pm December 13, 2022 10:00am Start: 11-15-2022 End: 11-27-2022 Furosemide 40 mg tablet Disc ontinued 20 mg PO DAILY November 15, 2022 3:23pm November 27, 2022 1:47pm Start: 11-15-2022 End: 11-27-2022 take 20 mg by mouth once daily Furosemide Discontinued 20 MG PO DAILY November 15, 2022 3:23pm November 27, 2022 1:47pm Start: 11-08-2022 End: 11-15-2022 take 1 tablet by mouth once daily Furosemide 40 mg tablet Discontinued 40 mg PO DAILY November 08, 2022 12:00am November 15, 2022 3:23pm gabapentin 300 mg oral capsule (6 sources) Anti-epileptic Agent Start: 05-21-2024 take 1 capsule by mouth three times daily Gabapentin 300 mg capsule Active 300 mg PO THREE TIMES A DAY May 21, 2024 12:00am Start: 04-19-2024 take 1 capsule by [facility] once daily, then take 1 capsule by mouth twice daily, then take 1 capsule by mouth three times daily gabapentin (NEURONTIN) 300 mg capsule Indications: Open angle with borderline findings and low glaucoma risk in both eyes TAKE 1 CAPSULE BY MOUTH EVERY NIGHT FOR ONE WEEK, THEN ONE TWICE DAILY FOR ONE WEEK, THEN 1 THREE TIMES DAILY 04/19/2024 Active ipratropium bromide 0.042 mg/actuat metered dose nasal spray (12 sources) Anticholinergic Start: 10-30-2022 ipratropium (A TROVENT) 42 mcg (0.06 %) nasal spray 10/30/2022 Active Start: 08-06-2022 End: 12-13-2022 take 1 spray(s) nasal route once daily ipratropium (Atrovent) 42 mcg (0.06 %) nasal spray Administer 1 spray into each nostril once daily. 0 08/06/2022 12/13/2022 Discontinued (Therapy completed) L.rhamnosus/B.animalis,lacti s, ([employer] ORAL) (4 sources) L.rhamnosus/B.an imalis,lactis, ([employer] ORAL) Take by mouth . Active Lactobacillus Combination No .9 (Adult 50 Plus Probiotic) 4 billion cell capsule (2 sources) Sta rt: take 4 capsules by mouth once daily Lactobacillus Combination No.9 (Adult 50 Plus Probiotic) 4 billion cell capsule Active 4000 NMA PO daily November 20, 2023 12:00am administer with a meal levothyroxine sodium 0.088 m g oral tablet (13 sources) l-Th yrox ine Sta rt: 4 End : take 1 tablet by mouth once daily in the morning levothyroxine (Synthroid, Levoxyl) 88 mcg tablet Indications: Acquired hypothyroidism Take 1 tablet (88 mcg) by mouth early in the morning.. Take on an empty stomach at the same time each day, either 30 to 60 minutes prior to breakfast 90 tablet 3 02/06/2024 02/05/2025 Active Start: 12-18-2023 End: 02-06-2024 take 1 tablet by mouth once daily in the morning levothyroxine (Synthroid, Levoxyl) 75 mcg tablet Indications: Acquired hypothyroidism Take 1 tablet (75 mcg) by mouth early in the morning.. Take on an empty stomach at the same time each day, either 30 to 60 minutes prior to breakfast 90 tablet 3 12/18/2023 02/06/2024 Discontinued (Reorder) Start: 11-20-2023 End: 05-21-2024 take 1 tablet by mouth once daily Levothyroxine 50 mcg tablet Discontinued 50 ug PO daily November 20, 2023 12:00am May 21, 2024 11:53am Start: 09-16-2023 levothyroxine (Synthroid, Levoxyl) 50 mcg tablet Indications: Acquired hypothyroidism Take on an empty stomach at the same time each day, either 30 to 60 minutes prior to breakfast 30 tablet 11 09/16/2023 Active take 1 capsule by mo uth once daily before breakfast levothyroxine 88 mcg cap Take 88 mcg by mouth daily before breakfast. Active metroNIDAZOLE 250 mg oral tablet (2 sources) Nitroimidazole Antimicrobial Start: 07-17-2023 End: 07-31-2023 take 1 tablet by mouth three times daily metroNIDAZOLE (Flagyl) 250 mg tablet Indications: Small intestinal bacterial overgrowth Take 1 tablet (250 mg) by mouth 3 times a day for 14 days. 42 tablet 07/17/2023 07/31/2023 Active Start: 06-05-2023 End: 06-19-2023 take 1 tablet by mouth three times daily metroNIDAZOLE (Flagyl) 250 mg tablet Indications: Abdominal bloating , Small intestinal bacterial overgrowth (SIBO) Take 1 tablet (250 mg) by mouth 3 times a day for 14 days. 42 tablet 06/05/2023 06/19/2023 Active neomycin sulfate 500 mg oral tablet (1 source) Aminoglycoside Antibacterial Start: 07-17-2023 End: 07-31-2023 take 2 tablets by mouth twice daily neomycin (Mycifradin) 500 mg tablet Indications: Small intestinal bacterial overgrowth Take 2 tablets (1,000 mg) by mouth 2 times a day for 14 days. 56 tablet 07/17/2023 07/31/2023 Active omeprazole 20 mg delayed release oral tablet (20 sources) Proton Pump Inhibitor Start: 11-06-2022 End: 12-13-2022 take 1 tablet by mouth once daily Omeprazole Magnesium (Prilosec Otc) 20 mg tablet,delayed release (DR/EC) Active 20 mg PO DAILY November 06, 2022 12:00am Start: 11-01-2022 End: 11-01-2023 omeprazole (PRILOSEC) 20 mg capsule 01/30/2023 Active Start: 10-15-2019 End: 07-12-2020 take 1 capsule by mouth once daily Omeprazole 40 mg capsule,delayed release(DR/EC) Discontinued 40 mg PO DAILY October 15, 2019 12:00am July 12, 2020 1:44pm Comment on above: Take 40 mg by mouth once daily. pantoprazole 40 mg delayed release oral tablet (12 sources) Proton Pump Inhibitor Start: 10-15-2022 End: 04-13-2023 pantoprazole (PROTONIX) 40 MG tablet 10/15/2022 Active phenylephrine hydrochloride 25 mg/ml ophthalmic solution (2 sources) alpha-1 Adrenergic Agonist Start: 02-09-2024 End: 02-09-2024 PHENYLephrine 2.5 % 1 Drop (AK-DILATE, [place]-SYNEPHRINE) Start: 02-09-2024 End: 02-09-2024 1 Drop, BOTH EYES, DIRECT ED, Starting on Fri02/09/24 at 0930, Until Fri02/09/24 at 212, Administer for dilation PROTECT FROM LIGHT proparacaine hydrochloride 5 mg/ml ophthalmic solution (2 sources) Local Anesthetic Start: 02-09-2024 End: 02-09-2024 proparacaine 0.5 % 1 Drop (ALCAINE) Start: 02-09-2024 End: 02-09-2024 1 Drop, BOTH EYES, DIRECT ED, Starting on Fri02/09/24 at 0930, Until Fri02/09/24 at 2128, Administer for pneumo tonometry, tonopen tonometry, or pachymetry. In the event of a proparacaine shortage, administer tetracaine 0.5% ophthalmic drops 1 drop in the left eye as directed for pneumo tonometry, tonopen tonometry, or pachymetry spironolactone 25 mg oral tablet (19 sources) Aldosterone Antagonist Start: 05-27-2023 End: 04-08-2024 take 1 tablet by mouth once daily Spironolactone 25 mg tablet Active 25 mg PO DAILY April 08, 2024 11:46am tamsulosin hydrochloride 0.4 mg oral capsule (20 sources) alpha-Adrenergic Ranjan Start: 05-25-2021 End: 03-22-2025 take 1 capsule by mouth once daily Tamsulosin (Flomax) 0.4 mg capsule Active 0.4 mg PO DAILY July 30, 2021 12:00am traZODone hydrochloride 50 mg oral tablet (10 sources) Serotonin Reuptake Inhibitor Start: 02-06-2024 End: 02-05-2025 traZODone (DESYREL) 50 mg tablet Indications: Open angle with borderline findings and low glaucoma risk in both eyes Take 50 mg by mouth. 02/06/2024 02/05/2025 Active Start: 01-08-2019 traZODone HCl - 50 MG Oral Tablet 1/2 tablet at night Quantity: 30 Refills: 6 Lavelle Boone Start : 08-Jan-2019 Active tropicamide 10 mg/ml ophthalmic solution (2 sources) Anticholinergic Start: 02-09-2024 End: 02-09-2024 tropicamide 1 % 1 Drop (MYDRIACYL) Start: 02-09-2024 End: 02-09-2024 1 Drop, BOTH EYES, DIRECT ED, Starting on Fri02/09/24 at 0930, Until Fri02/09/24 at 2129, Administer for dilation urea 200 mg/ml topical cream (9 sources) Start: 04-03-2023 End: 04-02-2024 urea (CARMOL) 20 % cream Jess ly topically 2 (two) times a day . 85 g 1 04/03/2023 04/02/2024 Active urea (Kerafoam) 42 % Foam Apply topically . 0 Active Completed/Discontinued Medications Medication Drug Class(es) Dates Sig (Normalized) Sig (Original) acetaminophen 325 mg / HYDROcodone bitartrate 5 mg oral tablet (1 source) Opioid Agonist Start: 07-20-2020 End: 07-21-2020 take 1 tablet by mouth every six hours hydrocodone-acetam inophen 5 mg-325 mg oral tablet ; 1 [...] than prescribed may cause serious breathing problems. Comment on above: Caution federal law prohibits the transfer of this drug to any person other than the person for whom it was prescribed.May cause drowsiness. Alcohol may intensify this effect. Use care when operating dangerous machinery.This product contains acetaminophen. Do not use with any other product containing acetaminophen to prevent possible liver damage.Using more of this medication than prescribed may cause serious breathing problems. amiodarone hydrochloride 100 mg oral tablet (20 sources) Antiarrhythmic Start: 05-27-2023 End: 02-09-2024 take 1 tablet by mouth once daily Amiodarone 100 mg tablet Discontinued 100 mg PO DAILY May 27, 2023 11:55am February 09, 2024 5:44pm Start: 12-04-2022 amiodarone (PA CERONE) 200 mg tablet 12/17/2022 Active Start: 12-04-2022 amiodarone (CO RDARONE) 200 MG tablet 0.5 (one-half) tablet (100 mg total) 2 (two) times a day . 12/04/2022 Active Start: 12-04-2022 End: 05-07-2024 take 0.5 tablet by mouth once daily amiodarone (Pacerone) 200 mg tablet Take 0.5 tablets (100 mg) by mouth once daily. 12/04/2022 05/07/2024 Discontinued (Therapy completed) Start: 12-04-2022 End: 05-27-2023 take 1 tablet by mouth once daily Amiodarone 200 mg tablet Discontinued 200 mg PO DAILY December 17, 2022 9:38am May 27, 2023 11:56am ascorbic acid 500 mg oral tablet (20 sources) Vitamin C Start: 01-18-2021 End: 07-30-2021 take 1 tablet by mouth once daily Ascorbic Acid (Vitamin C) 500 mg tablet Discontinued 500 mg PO DAILY January 18, 2021 1:00am July 30, 2021 10:07am ascorbic acid (V ITAMIN C ORAL) Take by mouth Morning . Active ascorbic acid (V ITAMIN C ORAL) Take by mouth Morning . 0 Active aspirin 81 mg delayed release oral tablet (18 sources) Platelet Aggregation Inhibitor, Nonsteroidal Anti-inflammatory Drug Start: 04-15-2018 End: 04-21-2018 take 1 tablet by mouth once daily Aspirin (Adult Aspirin Regimen) 81 mg tablet,delayed release (DR/EC) Discontinued 81 mg PO DAILY April 15, 2018 1:00am April 21, 2018 4:15pm azithromycin 250 mg oral tablet (1 source) Macrolide Antimicrobial Start: 01-18-2019 take 2 tablets by mouth once daily, then take 1 tablet by mouth, then take 1 tablet by mouth once daily Azithromycin 250 MG Oral Tablet TAKE 2 TABLETS ON DAY 1 THEN TAKE 1 TABLET A DAY FOR 4 DAYS. Quantity: 1 Refills: 0 Lavelle Boone Start : 18-Jan-2019 Active 6 Tablet Pack Bupivacaine (2 sources) Amide Local Anesthetic Start: 11-23-2020 End: 11-23-2020 bupivacaine HCl (MARCAINE) 0.5 % (5 mg/mL) injection 1 mL cefprozil 250 mg oral tablet (3 sources) Cephalosporin Antibacterial Start: 02-18-2019 take 1 tablet by mouth once daily Cefprozil 250 MG Oral Tablet TAKE 1 TABLET EVERY 12 HOURS DAILY. Quantity: 20 Refills: 1 Lavelle Boone Start : 18-Feb-2019 Active celecoxib 200 mg oral capsule (20 sources) Nonsteroidal Anti-inflammatory Drug Start: 01-18-2021 End: 07-30-2021 take 1 tablet by mouth every other day Celecoxib (Celebrex) 200 mg capsule Discontinued 200 mg PO .COMPLEX January 18, 2021 1:00am July 30, 2021 10:07am 200 mg PO 1 tab every other day; Start: 12-11-2020 take 1 capsule by mo uth once daily celecoxib (CELEBREX) 200 MG capsule Take 1 (one) capsule (200 mg total) by mouth daily . 90 capsule 0 12/11/2020 Active Start: 11-23-2020 take 1 capsule by mo uth once daily celecoxib (CELEBREX) 200 MG capsule Take 1 (one) capsule (200 mg total) by mouth daily . 30 capsule 1 11/23/2020 Active take 1 capsule by mo uth once daily CeleBREX 200 mg oral capsule ; 1 cap(s) orally once a day Quantity: 0 Refills: 0 Ordered: 17-Jan-2020 Birdie Johnson Generic Substitution Allowed End: 11-23-2020 take 1 capsule by mouth twice daily celecoxib (CELEBREX) 200 MG capsule Take 200 mg by mouth 2 (two) times a day . 0 11/23/2020 Discontinued (Reorder) cephalexin 500 mg oral capsule (2 sources) Cephalosporin Antibacterial Start: 07-19-2020 End: 07-28-2020 take 1 capsule by mouth every six hours Keflex 500 mg oral capsule ; 1 cap(s) orally every 6 hours Quantity: 40 Refills: 0 Ordered: 19-Jul-2020 Delphine Childress Start: 19-Jul-2020 End: 28-Jul-2020 Generic Substitution Allowed Comments: Finish all this medication unless otherwise directed by prescriber. Comment on above: Finish all this medi cation unless otherwise directed by prescriber. cetirizine hydrochloride 10 mg disintegrating oral tablet (20 sources) Histamine-1 Receptor Antagonist Start: 05-17-2019 End: 10-15-2019 take 1 tablet by mouth once daily Cetirizine (Zyrtec) 10 mg tablet,disintegra ting Discontinued 10 mg PO DAILY May 17, 2019 12:00am October 15, 2019 1:05pm take 1 tablet by mouth once luma y cetirizine (ZYRTEC) 10 MG tablet Take 1 (one) tablet (10 mg total) by mouth daily . Active clopidogrel 75 mg oral tablet (18 sources) P2Y12 Platelet Inhibitor Start: 04-14-2018 End: 04-21-2018 take 1 tablet by mouth once daily Clopidogrel (Plavix) 75 mg tablet Discontinued 75 mg PO DAILY April 14, 2018 1:00am April 21, 2018 4:13pm dapagliflozin 10 mg oral tablet (20 sources) Sodium-Glucose Cotransporter 2 Inhibitor Start: 12-25-2022 End: 12-30-2023 take 1 tablet by mouth once daily Dapagliflozin Propanediol (Farxiga) 10 mg tablet Discontinued 10 mg PO DAILY April 30, 2023 12:00am December 30, 2023 2:43pm digoxin 0.125 mg oral tablet (20 sources) Cardiac Glycoside Start: 09-05-2021 End: 12-13-2022 take 1 tablet by mouth once daily Digoxin 125 mcg (0.125 mg) tablet Discontinued 125 ug PO DAILY September 09, 2022 8:32am December 04, 2022 3:03pm Start: 08-27-2021 End: 09-05-2021 take 1 tablet by mouth once daily Digoxin 250 mcg (0.25 mg) tablet Discontinued 250 ug PO DAILY August 27, 2021 9:44am September 05, 2021 9:07am Disability Placard (8 sources) Start: 05-26-2020 Disability Placard EXP: 04/13/2025 Quantity: 2 Refills: 0 Ordered: 29-May-2020 Eben Vo MD Start : 26-May-2020 Active EPINEPHrine 0.01 mg/ml / lidocaine hydrochloride 20 mg/ml injectable solution (2 sources) Antiarrhythmic, alpha-Adrenergic Agonist, beta-Adrenergic Agonist, Catecholamine, Amide Local Anesthetic Start: 10-17-2022 End: 10-17-2022 lidocaine-EPINEPHrine (XYLOCAINE W/EPI) 2 %-1:100,000 injection 3 mL hydroCHLOROthiazide 12.5 mg oral tablet (18 sources) Thiazide Diuretic Start: 04-21-2018 End: 04-28-2018 take 1 tablet by mouth once daily Hydrochlorothiazide 12.5 mg tablet Discontinued 12.5 mg PO DAILY April 21, 2018 1:00am April 28, 2018 2:06pm levoFLOXacin 750 mg oral tablet (2 sources) Quinolone Antimicrobial Start: 03-03-2019 take 1 tablet by mouth once daily levoFLOXacin 750 MG Oral Tablet TAKE 1 TABLET DAILY. Quantity: 7 Refills: 0 Lavelle Boone Start : 03-Mar-2019 Active metoprolol tartrate 25 mg oral tablet (20 sources) beta-Adrenergic Ranjan Start: 12-19-2019 metoprolol tartrate, short acting, (LOPRESSOR) 25 mg tablet Start: 01-06-2019 take 0.5 tablet by m outh twice daily Metoprolol Tartrate 25 MG Oral Tablet TAKE 0.5 TABLET Twice daily Quantity: 90 Refills: 3 DO Start : 06-Jan-2019 Active Start: 03-26-2018 End: 10-15-2019 Metoprolol Tartrate 25 mg ta blet Discontinued 12.5 mg PO TWICE A DAY May 29, 2018 12:59pm May 17, 2019 1:45pm Start: 03-26-2018 End: 10-15-2019 take 12.5 mg by mouth twice daily Metoprolol Tartrate Discontinued 12.5 MG PO TWICE A DAY May 29, 2018 12:59pm May 17, 2019 1:45pm take 12.5 mg by mout h twice daily metoprolol ; 12.5 milligram(s) orally 2 times a day Quantity: 0 Refills: 0 Ordered: 17-Sep-2019 Domi Dickerson Status: Other Generic Substitution Allowed [place]-3 Fatty Acids-Fish Oil (16 sources) Start: 04-21-2015 End: 03-26-2018 [place]-3 Fatty Acids-Fish Oil Discontinued 1 EACH PO DAILY April 21, 2015 12:00am March 26, 2018 11:02am WILL STOP 03/20 Start: 04-21-2015 End: 03-26-2018 [place]-3 Fatty Acids-Fish Oil Discontinued 1 EACH PO DAILY April 21, 2015 1:00am March 26, 2018 12:02pm WILL STOP 2/1 [place]-3 Fatty Acids-Fish Oil 1 EACH capsule (2 sources) Start: 04-21-2015 End: 03-26-2018 take 2 capsules by mouth once daily [place]-3 Fatty Acids-Fish Oil 1 EACH capsule Discontinued 1 NMA PO DAILY April 21, 2015 1:00am March 26, 2018 12:02pm WILL STOP 2/1 oxyCODONE hydrochloride 5 mg oral tablet (2 sources) Opioid Agonist Start: 02-24-2024 End: 05-21-2024 take 5-10 mg by mouth every four hours as needed for pain Oxycodone 5 mg Tablet Discontinued 5 - 10 mg PO EVERY 4 HOURS NEEDED as needed for as needed for pain 42 7 February 24, 2024 May 21, 2024 11:53am predniSONE 20 mg oral tablet (3 sources) Start: 02-18-2019 take 2 tablets by mouth once daily predniSONE 20 MG Oral Tablet 2 once a day Quantity: 10 Refills: 0 Lavelle Boone Start : 18-Feb-2019 Active rivaroxaban 20 mg oral tablet (20 sources) Factor Xa Inhibitor Start: 06-10-2018 End: 12-30-2023 take 1 tablet by mouth once daily at mealtime Rivaroxaban (Xarelto) 20 mg tablet Discontinued 20 mg PO DAILY 90 September 20, 2021 10:40am November 27, 2022 2:18pm must administer with a meal/food take 2 tablets by mouth once janice ly rivaroxaban (XARELTO) 10 mg tablet Take 2 (two) tablets (20 mg total) by mouth daily Morning . Active take 1 tablet by mouth once luma y rivaroxaban (XARELTO) 10 mg tablet Take 1 (one) tablet (10 mg total) by mouth daily Morning . 0 Active sincalide 0.005 mg injection (2 sources) Cholecystokinin Analog Start: 02-12-2023 End: 02-12-2023 sincalide (Kinevac) injection 1.49 mcg Start: 02-12-2023 End: 02-12-2023 sincalide (Kinevac) injectio n 1.49 mcg sucralfate 1000 mg oral tablet (4 sources) Aluminum Complex Start: 03-25-2023 End: 05-27-2023 take 1 tablet by mouth at bedtime Sucralfate (Carafate) 1 gram tablet Discontinued 1 g PO BEFORE MEALS AND AT BEDTIME 60 14 March 25, 2023 11:30am May 27, 2023 9:12am [id number] (Choletec) injection 6 millicurie (2 sources) Start: 02-12-2023 End: 02-12-2023 [id number] (Choletec) injection 6 millicurie traMADol hydrochloride 50 mg oral tablet (18 sources) Opioid Agonist Start: 03-25-2018 End: 03-26-2018 take 1 tablet by mouth every six hours as needed for pain Tramadol 50 MG tablet Discontinued 50 mg PO EVERY 6 HOURS NEEDED as needed for Pain March 25, 2018 1:00am March 26, 2018 11:54am 1 ml triamcinolone acetonide 40 mg/ml injection (2 sources) Corticosteroid Start: 11-23-2020 End: 11-23-2020 triamcinolone acetonide (KENALOG-40) injection 40 mg Start: 11-23-2020 End: 11-23-2020 triamcinolone acetonide (MAMADOU ALOG-40) injection 40 mg Tumeric (18 sources) Start: 04-21-2015 End: 03-26-2018 Tumeric Discontinued 1000 mg PO DAILY April 21, 2015 1:00am March 26, 2018 12:02pm WILL STOP 2 Start: 04-21-2015 End: 03-26-2018 Tumeric Discontinued 1000 MG PO DAILY April 21, 2015 12:00am March 26, 2018 11:02am WILL STOP 2 Start: 04-21-2015 End: 03-26-2018 Tumeric Discontinued 1000 MG PO DAILY April 21, 2015 1:00am March 26, 2018 12:02pm WILL STOP 2 warfarin sodium 5 mg oral tablet (20 sources) Vitamin K Antagonist Start: 06-10-2018 End: 06-10-2018 take 2 tablets by mouth once daily Warfarin 5 mg tablet Discontinued 5 mg PO .COMPLEX 210 June 10, 2018 2:25pm June 10, 2018 2:38pm 10 mg daily or otherwise as directed Please contact the information source for Protocol details. Start: 06-10-2018 End: 06-10-2018 take 10 mg by mouth once daily Warfarin Discontinued 5 MG PO .COMPLEX 210 June 10, 2018 2:25pm June 10, 2018 2:38pm 10 mg daily or otherwise as directed Start: 04-14-2018 End: 06-10-2018 Warfarin 5 mg tablet Discont inued 5 mg PO .COMPLEX 75 May 15, 2018 10:35am June 10, 2018 2:28pm 5 mg PO 12.5 mg daily or as directed.; Please contact the information source for Protocol details. Start: 04-06-2018 End: 04-14-2018 take 2 tablets by mouth once at bedtime Warfarin (Coumadin) 2.5 mg tablet Discontinued 5 mg PO AT BEDTIME 60 April 06, 2018 1:00am April 14, 2018 12:40pm on odd numbered days Start: 03-26-2018 End: 04-06-2018 take 1 tablet by mouth once daily Warfarin (Coumadin) 2.5 mg tablet Discontinued 2.5 mg PO .COMPLEX 60 March 26, 2018 12:12pm April 06, 2018 3:28pm 2.5 mg PO Take 2 tablets (5 mg) today and tomorrow, then take 1 tablet by mouth daily; Please contact the information source for Protocol details. Problems Active Problems Problem Classification Problem Date Documented Da te Episodic/Chronic Acquired foot deformities (1 source) Acquired varus heel; Translations: [Varus deformity, not elsewhere classified, left ankle] 08-01-2022 Episodic Acute myocardial infarction (16 sources) Myocardial infarction; Translations: [Non-ST elevation (NSTEMI) myocardial infarction] 12-03-2022 Chronic Cardiac dysrhythmias (20 sources) Atrial fibrillation; Translations: [Atrial fibrillation] Onset: 01-21-2020 03-28-2021 Chronic Cardiac dysrhythmias (2 sources) Bradycardia, unspecified; Translations: [Tachycardia, unspecified] Onset: 07-17-2024 Episodic Cataract (20 sources) After-cataract with vision obscured following extraction of cataract; Translations: [Other secondary cataract, left eye] Onset: 01-10-2020 Resolved: 02-28-2020 01-22-2021 Chronic Congestive heart failure; nonhypertensive (15 sources) Congestive heart failure; Translations: [Heart failure, unspecified] Onset: 09-16-2023 12-30-2022 Chronic Coronary atherosclerosis and other heart disease (18 sources) Calcification of coronary artery; Translations: [Atherosclerotic heart disease of [place] coronary artery without angina pectoris] 01-18-2021 Chronic Disorders of lipid metabolism (20 sources) Mixed hyperlipidemia; Translations: [Mixed hyperlipidemia] Onset: 10-15-2022 Chronic Essential hypertension (20 sources) Essential hypertension; Translations: [Essential (primary) hypertension] Chronic Glaucoma (7 sources) Preglaucoma, unspecified, bilateral; Translations: [Preglaucoma, unspecified] Onset: 01-17-2020 Resolved: 01-22-2021 02-09-2024 Chronic Hyperplasia of prostate (20 sources) Benign prostatic hypertrophy without outflow obstruction; Translations: [Hypertrophy (benign) of prostate without urinary obstruction and other lower urinary tract symptom (LUTS)] Onset: 10-15-2022 10-15-2022 Chronic Miscellaneous mental health disorders (3 sources) Primary insomnia; Translations: [Primary insomnia] Onset: 02-06-2024 02-06-2024 Chronic Nonspecific chest pain (20 sources) Chest wall pain; Translations: [Other chest pain] 10-15-2022 Episodic Open wounds of extremities (1 source) Laceration of left index finger; Translations: [Open wound of finger(s), without mention of complication] 01-18-2021 Episodic Osteoarthritis (20 sources) Arthritis; Translations: [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] Onset: 10-15-2022 Chronic Other aftercare (18 sources) Long-term current use of anticoagulant; 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] 04-28-2018 Episodic Other aftercare (13 sources) Patient encounter status; Translations: [Encounter for therapeutic drug level monitoring] 11-08-2022 Episodic Other aftercare (2 sources) Long-term current use of diuretic; Translations: [Encounter for therapeutic drug level monitoring] 11-08-2022 Episodic Other bone disease and musculoskeletal deformities (4 sources) Exostosis of left foot; Translations: [Other specified disorders of bone, ankle and foot] Episodic Other bone disease and musculoskeletal deformities (2 sources) Exostosis; Translations: [Other specified disorders of bone, unspecified site] 08-01-2022 Episodic Other congenital anomalies (1 source) Talipes planus; 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 Other connective tissue disease (4 sources) History of total knee arthroplasty; Translations: [Presence of right artificial knee joint] 02-24-2024 Chronic Other connective tissue disease (1 source) Presence of right artificial knee joint; Translations: [Presence of right artificial knee joint] Onset: 02-24-2024 Chronic Other connective tissue disease (1 source) Plantar fasciitis of right foot; Translations: [Plantar fascial fibromatosis] Episodic Other connective tissue disease (1 source) Tendinitis of right posterior tibial tendon; Translations: [Posterior tibial tendinitis, right leg] Episodic Other connective tissue disease (4 sources) Pain in left foot; Translations: [Pain in left foot] Onset: 04-29-2024 Episodic Other connective tissue disease (1 source) Calcaneal spur of right foot; Translations: [Calcaneal spur, right foot] 04-03-2023 Episodic Other connective tissue disease (4 sources) Pain of toes of bilateral feet; Translations: [Pain in right toe(s)] 04-03-2023 Episodic Other connective tissue disease (1 source) Pain in toe; Translations: [Pain in right toe(s)] 02-05-2024 Episodic Other connective tissue disease (2 sources) Pain in both feet; Translations: [Pain in right foot] 04-29-2024 Episodic Other connective tissue disease (1 source) Pain in left foot; Translations: [Pain in left foot] Onset: 04-29-2024 Episodic Other diseases of kidney and ureters (13 sources) Acute renal insufficiency; Translations: [Disorder of kidney and ureter, unspecified] 12-03-2022 Episodic Other diseases of kidney and ureters (9 sources) Disorder of kidney and ureter, unspecified; Translations: [Unspecified disorder of kidney and ureter] 12-03-2022 Episodic Other eye disorders (2 sources) Optic cupping; Translations: [Glaucomatous optic atrophy, 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-09-2024 Chronic Other gastrointestinal disorders (5 sources) Burping; Translations: [Eructation] 03-19-2023 Episodic Other gastrointestinal disorders (5 sources) Eructation; Translations: [Flatulence, eructation, and gas pain] 03-19-2023 Episodic Other injuries and conditions due to external causes (18 sources) H/O: fracture; Translations: [Personal history of (healed) traumatic fracture] 07-10-2020 Episodic Comment on above: X 4 years of surgery Other lower respiratory disease (13 sources) Cough; Translations: [Cough] Episodic Other lower respiratory disease (18 sources) Dyspnea on exertion; Translations: [Dyspnea, unspecified] 07-30-2021 Episodic Other lower respiratory disease (3 sources) Dyspnea, unspecified; Translations: [Other respiratory abnormalities] Onset: 11-20-2023 Episodic Other lower respiratory disease (12 sources) Other forms of dyspnea; Translations: [Other respiratory abnormalities] Onset: 06-01-2024 Episodic Other nervous system disorders (20 sources) Bilateral carpal tunnel syndrome; Translations: [Carpal tunnel syndrome, bilateral upper limbs] Onset: 08-13-2017 08-13-2017 Chronic Other nervous system disorders (14 sources) Carpal tunnel syndrome; Translations: [Carpal tunnel syndrome, right upper limb] Onset: 03-25-2018 07-10-2020 Chronic Other nervous system disorders (4 sources) Carpal tunnel syndrome of right wrist; Translations: [Carpal tunnel syndrome, right upper limb] Onset: 03-25-2018 07-10-2020 Chronic Comment on above: Repaired by Dr. Jude Iraheta @ [facility] Other nervous system disorders (2 sources) Other chronic pain; Translations: [Other chronic pain] Onset: 02-05-2024 Chronic Other nervous system disorders (1 source) Numbness of hand Episodic Other non-traumatic joint disorders (3 sources) Instability of joint of left ankle; Translations: [Other instability, left ankle] 05-01-2023 Episodic Other skin disorders (11 sources) Foot callus; Translations: [Corns and callosities] Episodic Other skin disorders (1 source) [place] - lesion ; Translations: [Corns and callosities] 10-31-2022 Episodic Other upper respiratory disease (8 sources) Allergic rhinitis; Translations: [Allergic rhinitis, cause unspecified] Chronic [place]-; endo-; and myocarditis; cardiomyopathy (except that caused by tuberculosis or sexually transmitted disease) (20 sources) Cardiomyopathy; Translations: [Other cardiomyopathies] Onset: 12-13-2022 11-27-2022 Chronic Residual codes; unclassified (13 sources) Insomnia; [...] and without mention of infection] 07-19-2020 Episodic Thyroid disorders (7 sources) Hypothyroidism, unspecified; Translations: [Acquired hypothyroidism] Onset: 12-16-2023 Chronic Unclassified (2 sources) Carpal tunnel syndrome, bilateral; Translations: [Carpal tunnel syndrome, bilateral upper limbs] Onset: 08-13-2017 08-13-2017 Unclassified (20 sources) Patient encounter status; Translations: [Medicare annual wellness visit, subsequent] 05-07-2024 Unclassified (2 sources) RIGHT THUMB LAC 07-19-2020 Comment on above: RIGHT THUMB LAC Unclassified (1 source) Laceration of right thumb 07-19-2020 Unclassified (1 source) Foreign body of right thumb 07-19-2020 Unclassified (2 sources) LEFT FINGER INJ 01-18-2021 Comment on above: LEFT FINGER INJ Unclassified (1 source) YEARLY MEDICARE WELLNESS REV LABS 03-07-2020 Comment on above: YEARLY MEDICARE WELL NESS REV LABS Unclassified (1 source) Laceration of left index finger 01-18-2021 Unclassified (4 sources) Longstanding persistent atrial fibrillation; Translations: [Longstanding persistent atrial fibrillation (Multi)] Onset: 10-15-2022 Unclassified (1 source) Small intestinal bacterial overgrowth, unspecified; Translations: [Small intestinal bacterial overgrowth, unspecified] Onset: 06-05-2023 Unclassified (2 sources) Gas; Translations: [Gas] Onset: 06-05-2023 Viral infection (12 sources) Verruca plantaris; Translations: [Plantar wart] Onset: 04-29-2024 Episodic Past or Other Problems Problem Classification Problem Date Documented Da te Episodic/Chronic Abdominal pain (9 sources) Indigestion; Translations: [Epigastric pain] Onset: 09-16-2023 10-15-2022 Episodic Allergic reactions (2 sources) Allergy, unspecified, initial encounter; Translations: [Allergy, unspecified, initial encounter] Onset: 05-01-2023 Episodic Blindness and vision defects (14 sources) Regular astigmatism of right eye; Translations: [Regular astigmatism, right eye] Onset: 01-10-2020 01-10-2020 Episodic Blindness and vision defects (4 sources) Regular astigmatism of left eye; Translations: [Regular astigmatism, left eye] Onset: 01-10-2020 01-10-2020 Episodic Mycoses (17 sources) Onychomycosis of toenails; Translations: [Tinea unguium] Onset: 11-13-2023 Episodic Nausea and vomiting (2 sources) Nausea; Translations: [Nausea] Onset: 06-05-2023 Episodic Open wounds of extremities (20 sources) Laceration of right thumb; Translations: [Open wound of finger(s), without mention of complication] Onset: 02-27-2018 07-19-2020 Episodic Other bone disease and musculoskeletal deformities (20 sources) Exostosis of right foot; Translations: [Other specified disorders of bone, ankle and foot] Onset: 02-22-2021 Episodic Other circulatory disease (4 sources) H/O: atrial fibrillation; Translations: [Personal history of other diseases of the circulatory system] Onset: 01-10-2020 01-10-2020 Episodic Other connective tissue disease (20 sources) Pain of toe of right foot; Translations: [Pain in right toe(s)] Onset: 02-22-2021 Episodic Other connective tissue disease (5 sources) Pain in right foot; Translations: [Pain in right foot] Onset: 04-12-2024 Episodic Other connective tissue disease (1 source) Pain in right foot; Translations: [Pain in right foot] Onset: 04-12-2024 Episodic Other connective tissue disease (1 source) Pain in right toe(s); Translations: [Pain in right toe(s)] Onset: 11-13-2023 Episodic Other connective tissue disease (2 sources) Pain in left toe(s); Translations: [Pain in left toe(s)] Onset: 11-13-2023 Episodic Other connective tissue disease (1 source) Pain in right lower leg; Translations: [Pain in right lower leg] Onset: 03-16-2024 Episodic Other eye disorders (4 sources) Hypertropia of right eye; Translations: [Vertical strabismus, right eye] Onset: 01-10-2020 01-10-2020 Episodic Other eye disorders (4 sources) Meibomian gland dysfunction of bilateral eyes; Translations: [Meibomian gland dysfunction right eye, upper and lower eyelids] Onset: 02-28-2020 02-28-2020 Episodic Other eye disorders (3 sources) H/O: L cataract extraction; Translations: [Cataract extraction status, left eye] Onset: 01-21-2020 Resolved: 08-09-2020 08-09-2020 Episodic Other eye disorders (3 sources) H/O: R cataract extraction; Translations: [Cataract extraction status, right eye] Onset: 02-28-2020 Resolved: 08-09-2020 08-09-2020 Episodic Other gastrointestinal disorders (20 sources) Abdominal bloating; Translations: [Abdominal distension (gaseous)] Onset: 01-16-2023 01-16-2023 Episodic Other gastrointestinal disorders (8 sources) Small bowel bacterial overgrowth syndrome; Translations: [Small intestinal bacterial overgrowth (SIBO)] Onset: 06-05-2023 06-05-2023 Episodic Other gastrointestinal disorders (4 sources) Abdominal distension (gaseous); Translations: [Abdominal distension (gaseous)] Onset: 01-16-2023 Episodic Other non-traumatic joint disorders (2 sources) Other instability, left ankle; Translations: [Other instability, left ankle] Onset: 02-05-2024 Episodic Other screening for suspected conditions (not mental disorders or infectious disease) (20 sources) Raised prostate specific antigen; Translations: [Elevated prostate specific antigen [PSA]] Onset: 09-25-2021 Episodic Comment on above: Possible previous i nferior infarct Other skin disorders (2 sources) Corns and callosities; Translations: [Corns and callosities] Onset: 11-13-2023 Episodic Residual codes; unclassified (18 sources) History of cardiac catheterization; Translations: [Other specified postprocedural states] Onset: 04-21-2018 04-28-2018 Episodic Comment on above: Coronaries normal, e levated Left ventricular end diastolic pressure, mild global hypokinesis per [facility] @ [facility] 04/21/2018 Residual codes; unclassified (18 sources) History of colonoscopy; Translations: [Other specified postprocedural states] Onset: 05-31-2014 07-10-2020 Episodic Unclassified (15 sources) Onset: 10-15-2022 Resolved: 05-07-2024 10-15-2022 Unclassified (1 source) Small intestinal bacterial overgrowth, unspecified; Translations: [Small intestinal bacterial overgrowth, unspecified] Onset: 07-17-2023 NEGATED: Highlighted row has not occurred!Residual codes; unclassified (6 sources) Disease Episodic Results Test Name Value Interpretation Reference Range Facility Basic Metabolic Profile (BMP )on 07-16-2024 BUN/CRE 17.4 RATIO Normal 10-20 [facility] Comment on above: Performed By: #### L 503.7505, L100.0100, L500.2500 ####[facility] [address] [place], [address] Calcium [Mass/Vol] 9.1 mg/dL Normal 7.6-11.[address] [facility] Comment on above: Performed By: #### L 503.7505, L100.0100, L500.2500 ####[facility] [address] [place], [address] Chloride [Moles/Vol] 102 mmol/L Normal 98-108 [facility] Comment on above: Performed By: #### L 503.7505, L100.0100, L500.2500 ####[facility] [address] [place], [address] CO2 [Moles/Vol] 24.0 mmol/L Normal 21.0-32.0 [facility] Comment on above: Performed By: #### L 503.7505, L100.0100, L500.2500 ####[facility] [address] [place], [address] Creatinine [Mass/Vol] 1.33 mg/dL High 0.70-1.20 [facility] Comment on above: Performed By: #### L 503.7505, L100.0100, L500.2500 ####[facility] [address] [place], [address] GAP 10 Normal 5-15 [facility] Comment on above: Performed By: #### L 503.7505, L100.0100, L500.2500 ####[facility] [address] [place], [address] GFR/1.73 sq M.predicted among non-blacks MDRD (S/P/Bld) [Vol rate/Area] 56 mL/min/{1.73_m2} Low >60 [facility] Comment on above: Result Comment: mL/m in/1.73m2 CKD-EPI Creatinine Equation (2020) Performed By: #### L 503.7505, L100.0100, L500.2500 ####[facility] [address] [place], [address] Glucose [Mass/Vol] 124 mg/dL High 70-[address] [facility] Comment on above: Performed By: #### L 503.7505, L100.0100, L500.2500 ####[facility] [address] [place], [address] Potassium [Moles/Vol] 4.7 mmol/L Normal 3.3-5.1 [facility] Comment on above: Result Comment: Hemo lysis present, Results??could be affected. ?? Performed By: #### L 503.7505, L100.0100, L500.2500 ####[facility] [address] [place], [address] Sodium [Moles/Vol] 136 mmol/L Normal 133-[address] [facility] Comment on above: Performed By: #### L 503.7505, L100.0100, L500.2500 ####[facility] [address] [place], [address] Urea nitrogen [Mass/Vol] 23 mg/dL High 4-19 [facility] Comment on above: Performed By: #### L 503.7505, L100.0100, L500.2500 ####[facility] [address] [place], [address] CBC W/Diff, Automatedon 05-3 0-2025 Absolute Lymph 0.55 X10 3/uL Low 0.83-4.51 [facility] Comment on above: Performed By: #### L 503.7505, L100.0100, L500.2500 ####[facility] [address] [place], [address] Absolute Neut 9.8 X10 3/uL High 2.0-7.7 [facility] Comment on above: Performed By: #### L 503.7505, L100.0100, L500.2500 ####[facility] [address] [place], [address] Basophils/100 WBC (Bld) 0.2 % Normal 0-1 [facility] Comment on above: Performed By: #### L 503.7505, L100.0100, L500.2500 ####[facility] [address] [place], [address] Eosinophils/100 WBC (Bld) 0.0 % Normal 0-5 [facility] Comment on above: Performed By: #### L 503.7505, L100.0100, L500.2500 ####[facility] [address] [place], [address] Erythrocyte distribution width (RBC) [Ratio] 13.4 % Normal 11.6-14.6 [facility] Comment on above: Performed By: #### L 503.7505, L100.0100, L500.2500 ####[facility] [address] [place], [address] Hematocrit (Bld) [Volume fraction] 45.6 % Normal 40-54 [facility] Comment on above: Performed By: #### L 503.7505, L100.0100, L500.2500 ####[facility] [address] [place], [address] Hemoglobin (Bld) [Mass/Vol] 15.3 g/dL Normal 13.0-16.5 [facility] Comment on above: Performed By: #### L 503.7505, L100.0100, L500.2500 ####[facility] [address] [place], [address] IG% 0.500 Normal 0.0-0.9 [facility] Comment on above: Result Comment: IG% - Immature Granulocytes (promyelocytes, myelocytes and metamyelocytes) > 1% indicates that a LEFT SHIFT is Present. Performed By: #### L 503.7505, L100.0100, L500.2500 ####[facility] [address] [place], [address] Lymphocytes/100 WBC (Bld) 5.0 % Low 19-41 [facility] Comment on above: Performed By: #### L 503.7505, L100.0100, L500.2500 ####[facility] [address] [place], [address] MCH (RBC) [Entitic mass] 32.4 pg High 27.0-32.0 [facility] Comment on above: Performed By: #### L 503.7505, L100.0100, L500.2500 ####[facility] [address] [place], [address] MCHC (RBC) [Mass/Vol] 33.6 g/dL Normal 32-36 [facility] Comment on above: Performed By: #### L 503.7505, L100.0100, L500.2500 ####[facility] [address] [place], [address] MCV (RBC) [Entitic vol] 96.6 fL High 80-94 [facility] Comment on above: Performed By: #### L 503.7505, L100.0100, L500.2500 ####[facility] [address] [place], [address] Monocytes/100 WBC (Bld) 4.8 % Normal 0-10 [facility] Comment on above: Performed By: #### L 503.7505, L100.0100, L500.2500 ####[facility] [address] [place], [address] Neutrophils/100 WBC (Bld) 89.5 % High 47-70 [facility] Comment on above: Performed By: #### L 503.7505, L100.0100, L500.2500 ####[facility] [address] [place], [address] Nucleated RBC (Bld) [#/Vol] 0 10*3/uL Normal 0-5 [facility] Comment on above: Performed By: #### L 503.7505, L100.0100, L500.2500 ####[facility] [address] [place], [address] Platelet mean volume (Bld) [Entitic vol] 10.9 fL Normal 6.2-12.0 [facility] Comment on above: Performed By: #### L 503.7505, L100.0100, L500.2500 ####[facility] [address] [place], [address] Platelets (Bld) [#/Vol] 190 10*3/uL Normal 150-450 [facility] Comment on above: Performed By: #### L 503.7505, L100.0100, L500.2500 ####[facility] [address] [place], [address] RBC (Bld) [#/Vol] 4.72 10*6/uL Normal 4.6-6.2 [facility] Comment on above: Performed By: #### L 503.7505, L100.0100, L500.2500 ####[facility] [address] [place], [address] RDW SD 48.0 fl High 35.1-43.9 [facility] Comment on above: Performed By: #### L 503.7505, L100.0100, L500.2500 ####[facility] [address] [place], [address] WBC (Bld) [#/Vol] 10.9 10*3/uL Normal 4.4-11.0 [facility] Comment on above: Performed By: #### L 503.7505, L100.0100, L500.2500 ####[facility] [address] [place], [address] L503.7505on 07-16-2024 Natriuretic peptide B (Bld) [Mass/Vol] 3888 pg/mL High <=900 [facility] Comment on above: Result Comment: Hear t Failure Unlikely: < 300 pg/mL Heart Failure Likely < 50 Years: > 450 pg/mL 50-75 Years: > 900 pg/mL >75 Years: > 1800 pg/mL Performed By: #### L 503.7505, L100.0100, L500.2500 ####[facility] [address] [place], [address] 12 Lead EKG performed by [facility] on 06-15-2024 12 Lead EKG performed by [facility] [address] [place] [address] 12 Lead EKG performed by [facility] 06/15/24 0708 MR#: [id number] Acct: [id number] Name: CHASITY PINO Rep #: [id number] : 1950 74 From: Louie Brown MD Attending Dr: Dr. Louie Brown MD Status: REG A MB Ordering Dr: Louie Brown MD Date: 06/15/24 Location: [facility] Sex: M C Admitted: BMS/12 Lead EKG performed by [facility] ECG Report Interpretation M arked sinus Bradycardia - occasional ectopic ventricular beat - Nonspecific T-abnormality. Low voltage -possible pulmonary disease. ABNORMAL Electronically signed on 06/15/2024 at 09:52 by Louie Brownwood Software Version [id number] 06/15/2457 Date Louie Brown MD CC: Dr. Eben Vo MD Date Dictated: 06/15/24707 Date Transcribed: 06/15/24707 Director Of Collections And Archives: [place] Signed [facility] Procedure Reporton Procedure Report [facility] Medical Records Department [address] [place] [address] Procedure Report 06/08/24 1255 MR#: [id number] Acct: [id number] Name: CHASITY PINO Rep #: [id number] : 1950 74 From: Fitz Ramsey DO PCP: Dr. Eben Vo MD Status:[place] [facility] [place]: [facility] Procedures Pulmonary Pulmonary Procedures /Diagnostic Testin Con Sedation Non-invasive Procedural Procedure Information Date of Procedure: 06/08/24 Description of procedure: CONSCIOUS SEDATION REPORT DATE OF SERVICE: June 08, 2024 BRIEF HISTORY OF PRESENT ILLNESS: The patient is a 74-year-old male who presented to [facility] for elective outpatient cardioversion due to underlying atrial fibrillation. The patient denied a history of obstructive sleep apnea, COPD or asthma. He denied any prior anesthetic complications. The patient is systemically anticoagulated on Xarelto. His last surface echocardiogram demonstrated an ejection fraction of 60%. PHYSICAL EXAMINATION: VITAL SIGNS: Reviewed and were acceptable. GENERAL: The patient is a , in no apparent distress, speaking in full sentences. HEENT: Normocephalic, atraumatic. Mucous membranes are moist and pink. Good mouth opening noted. Trachea is midline. MPI CHEST: S1, S2 irregularly irregular. No murmurs, rubs or gallops were noted. LUNGS: Clear to auscultation bilaterally without appreciable wheezes, rales or rhonchi. ABDOMEN: Soft, nontender, nondistended. Positive bowel sounds. EXTREMITIES: There is no clubbing, cyanosis or edema. ASA Class: II DESCRIPTION OF PROCEDURE: After confirmation of informed consent, the patient's anesthesia plan was reviewed in detail. Propofol was chosen. Risks and benefits were reviewed and the patient agreed to proceed. At 1219, the patient was given 40 mg of propofol. The patient achieved an appropriate level of sedation and was given a 200 joule synchronized cardioversion by Dr. Brown at the bedside. This was successful in achieving normal sinus rhythm. The patient was monitored until 1233, at which time he reached his baseline mental status and function. The patient tolerated the procedure well. COMPLICATIONS: None ESTIMATED BLOOD LOSS: None RECOMMENDATIONS: Okay to recover in usual fashion. 06/08/24 1257 Cosigner Signature (if applicable): CC: Dr. Louie Brown MD; Dr. Fitz Ramsey DO; Dr. Eben Vo MD Signed [facility] Procedure Report [facility] Medical Records Department [address] [place] [address] Procedure Report 06/08/24 1225 MR#: [id number] Acct: [id number] Name: CHASITY PINO Rep #: [id number] : 1950 74 From: Louie Brown MD PCP: Dr. 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 Informed consent was obtained. Anterior-posterior pads were applied. The patient was seen by Dr. Ramsey of the critical care division. 40 mg of intravenous propofol was administered and then 200 J of synchronized DC biphasic cardioversion energy were applied with prompt reversal to sinus rhythm. Patient tolerated the procedure well. Procedure findings: Successful DC cardioversion from atrial fibrillation to sinus rhythm. Follow-up as per office protocol. Repeat echocardiogram in 3 months. 06/08/24 1226 Cosigner Signature (if applicable): CC: Dr. Louie Brown MD; Dr. Eben Vo MD Signed [facility] 12 Lead EKG performed by [facility] on 06-04-2024 12 Lead EKG performed by [facility] [address] [place] [address] 12 Lead EKG performed by [facility] 06/04/24 1239 MR#: [id number] Acct: [id number] Name: CHASITY PINO Rep #: [id number] : 1950 74 From: Nimo Banks Attending Dr: EDITH Li Status: DEP AMB Ordering Dr: Nimo Loera Date: 05/18 10/11 Location: [facility] Sex: M C Admitted: BMS/12 Lead EKG performed by [facility] ECG Report Interpretation a trial fibrillation -Frequent pvcs -ventricular trigeminy Low voltage in limb leads. -Left axis -anterior fascicular block. -Old anteroseptal infarct. ABNORMAL Electronically signed on 06/09/2024 at 16:30 by Louie Brown Software Version [id number] 06/09/24 1635 Date Nimo SHARMA CC: Dr. Eben Vo MD Date Dictated: 06/04/24 1239 Date Transcribed: 06/04/24 123 Director Of Collections And Archives: JANINE Signed [facility] Cardiology Visit Reporton Cardiology Visit Report [facility] [address] [place] [address] OFFICE VISIT Date of Service: 06/04/24 MR#: [id number] Acct: [id number] Name: CHASITY PINO Rep #: [id number] : 1950 Provider: EDITH Allen Age/Sex: 74/M Location: [facility] Status: Signed HPI HPI History of Present Illness Details: Chasity Pino is a 74 year-old white male with a history of paroxysmal atrial fibrillation, hypertension and hyperlipidemia. Patient presented to the emergency room on 12/03/2022 with complaints of chest pain that radiated to his neck and shortness of breath. In the emergency room his EKG demonstrated atrial fibrillation with a rate of 72 bpm with an old septal infarct. His troponin was noted to be elevated and he was admitted for non-ST elevation TX. He did undergo a cardiac catheterization on 12/04/2022 which demonstrated normal coronary arteries, and dilated cardiomyopathy with an ejection fraction of about 18%. He was discharged from the hospital on amiodarone 200 mg daily. He underwent cardioversion on 01/07/2023. His echocardiogram from 02/27/2023 demonstrated an improved ejection fraction of 40%. He did have a repeat echocardiogram in May of 2023 and it demonstrated improvement with his estimated ejection fraction at 50%. In February 2024 patient underwent a total right knee replacement. In April he had a back injection for chronic pain. 2 weekws ago, Patient was in for follow-up on his knee replacement and was noted to be in an irregular rhythm with a heart fast heart rate. He was advised to contact our office. He did show up in our office stating that they had asked him to come over to our office. After obtaining patient's vitals it was noted that his heart rate was elevated. We did obtain an EKG. He is in atrial for with RVR with a heart rate of 131. His coreg was increased to 12.5 mg twice a day. HR is slightly better. He was started on lasix d/t elevated BNP. He is scheduled for a DCCV on 06/08. Intake Vital Signs 05/21/24 11:54 06/04/24 12:40 Height 5 ft 8 in 5 ft 8 in Weight: 158 lb BMI 24.0 BP 106/70 Blood Pressure Location Lt brachial Position Sitting Respiration 18 Pulse 91 Pulse Source Monitor Pulse Oximetry (%) 96 Intake Visit Reasons: DCCV Discussion Copy Cutter Required: No Is patient in pain?: No Allergies Sulfa (Sulfonamide Antibiotics) Allergy (Verified 06/04/24 13:07) sores in mouth sulfamethoxazole (From Bactrim) Allergy (Verified 06/04/24 13:07) Sores in mouth amiodarone Adverse Reaction (Intermediate, Verified 06/04/24 13:07) Affecting vision/eyesight Medications ???Medication ???Instructions ???Recorded ???Confirmed ???Type tamsulosin 0.4 mg capsule (Flomax) 0.4 mg PO DAILY urine 07/30/21 0 06/04/24 History omeprazole magnesium 20 mg 20 mg PO DAILY stomach 11/06/22 History tablet,delayed release (Prilosec OTC) lactobacillus combination no.9 4 4,000 mmu cells PO QDAY 11/20/23 0 06/04/24 History billion cell capsule (Adult 50 Plus Probiotic) dapagliflozin propanediol 10 mg 10 mg PO DAILY #90 tabs 12/30/23 0 06/04/24 Rx tablet (Farxiga) rivaroxaban 20 mg tablet (Xarelto) 20 mg PO DAILY blood thinner #90 12/30/23 06/04/24 Rx tabs spironolactone 25 mg tablet 25 mg PO DAILY #90 tabs 04/08/24 0 06/04/24 Rx carvedilol 12.5 mg tablet 12.5 mg PO BID #180 tabs 05/21/24 06/04/24 Rx furosemide 20 mg tablet (Lasix) 20 mg PO QAM #30 tabs 05/21/24 Rx gabapentin 300 mg capsule 300 mg PO TID 05/21/24 06/04/24 Hi story trazodone 50 mg tablet 50 mg PO QDAY 06/04/24 06/04/24 Hi story Ejection fraction %: 60 Have you fallen in the past year?: No PFSH Medical History Wears glasses BPH (benign prostatic hyperplasia) Prostate disease High cholesterol Small intestinal bacterial overgrowth (SIBO) Leg cramps Non-smoker History of Holter monitoring History of echocardiogram Cardiology follow-up encounter Urinary frequency Smokeless tobacco use History of cardioversion Non-ST elevated myocardial infarction Nonischemic cardiomyopathy Bone spur of right foot Coronary artery calcification Essential hypertension 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 [facility] Chest PA and Lateralon 06-04 Chest PA and Lateral [facility] [address] [place] [address] Chest PA and Lateral MR#: [id number] Acct: [id number] Name: CHASITY PINO Rep #: [id number] : 1950 M 74 From: Carlos fair MD PCP: Dr. Eben Vo MD Status: [facility] Study: Chest PA and Lateral Date of Exam: 06/04/24 Exam# [id number] Ordering Dr: Nimo Loera PA PROCEDURE: CHEST PA AND LATERAL 06/04/2024 REASON FOR EXAM: SOB TECHNIQUE: Frontal and lateral views of the chest. COMPARISON: None FINDINGS: Hardware: None Heart: The heart size is normal. Mediastinum: Tortuosity of the thoracic aorta. Lungs: The lungs are clear. Bones: Degenerative changes are identified within the thoracic spine. Osteoarthritis of both shoulders worse on the right side. RAD/Chest PA and Lateral IMPRESSION: NO ACUTE FINDINGS. Reading Location: [facility] CC: Dr. Eben Vo MD; EDITH Li Director Of Collections And Archives: Signed [facility] Basic Metabolic Profile (BMP )on 06-03-2024 BUN/CRE 17.7 RATIO Normal 10-20 [facility] Comment on above: Performed By: #### L 500.2500 #### [facility] [address] [place], [address] Calcium [Mass/Vol] 9.0 mg/dL Normal 7.6-11.[address] [facility] Comment on above: Performed By: #### L 500.2500 #### [facility] [address] [place], [address] Chloride [Moles/Vol] 99 mmol/L Normal 98-108 [facility] Comment on above: Performed By: #### L 500.2500 #### [facility] [address] [place], [address] CO2 [Moles/Vol] 26.9 mmol/L Normal 21.0-32.0 [facility] Comment on above: Performed By: #### L 500.2500 #### [facility] [address] [place], [address] Creatinine [Mass/Vol] 1.33 mg/dL High 0.70-1.20 [facility] Comment on above: Performed By: #### L 500.2500 #### [facility] [address] [place], [place], [address] GAP 11 Normal 5-15 [facility] Comment on above: Performed By: #### L 500.2500 #### [facility] [address] [place], [address] GFR/1.73 sq M.predicted among non-blacks MDRD (S/P/Bld) [Vol rate/Area] 56 mL/min/{1.73_m2} Low >60 [facility] Comment on above: Result Comment: mL/m in/1.73m2 CKD-EPI Creatinine Equation (2020) Performed By: #### L 500.2500 #### [facility] [address] [place], [address] Glucose [Mass/Vol] 110 mg/dL High 70-[address] [facility] Comment on above: Performed By: #### L 500.2500 #### [facility] [address] [place], [address] Potassium [Moles/Vol] 4.5 mmol/L Normal 3.3-5.1 [facility] Comment on above: Performed By: #### L 500.2500 #### [facility] [address] [place], [address] Sodium [Moles/Vol] 137 mmol/L Normal 133-[address] [facility] Comment on above: Performed By: #### L 500.2500 #### [facility] [address] [place], [address] Urea nitrogen [Mass/Vol] 24 mg/dL High 4-19 [facility] Comment on above: Performed By: #### L 500.2500 #### [facility] [address] [place], [address] FUNDUS PHOTOS OU (BOTH EYES) on 05-27-2024 [facility] No Panel Informationon 05-27 Radiology Study observation (narrative) [facility] OCT OPTIC NERVE CIRRUS OU (B OTH EYES)on 05-27-2024 [facility] PACHYMETRY OU (BOTH EYES)on 05-27-2024 [facility] Radiology Study observation (narrative) [facility] VISUAL FIELD 24-2 OU (BOTH E YES)on 05-27-2024 [facility] Radiology Study observation (narrative) [facility] 12 Lead EKG performed by [facility] on 05-21-2024 12 Lead EKG performed by [facility] [address] [place] [address] 12 Lead EKG performed by [facility] 05/21/24 1147 MR#: [id number] Acct: [id number] Name: CHASITY PINO Rep #: [id number] : 1950 73 From: Nimo Banks Attending Dr: Valerie Hooper Status: DEP AMB Ordering Dr: Nimo Loera Date: 06/11 Location: [facility] Sex: M C Admitted: BMS/12 Lead EKG performed by [facility] ECG Report Interpretation A trial fibrillation with a left bundle branch blockElectronically signed on 05/26/2024 at 11:32 by Louie Brown Software Version 8610 05/26/241134 Date iNmo SHARMA CC: Dr. Eben Vo MD Date Dictated: 05/21/241146 Date Transcribed: 05/21/241146 Director Of Collections And Archives: JANINE Signed Normal [facility] Absolute neutrophil countOrd ered By: Nimo Loera on 05-21-2024 Neutrophils (Bld) [#/Vol] 5.8 10*3/uL 2.0-7.7 [facility] Anion gap in Serum or Plasma Ordered By: Nimo Loera on 05-21-2024 Anion gap [Moles/Vol] 10 mmol/L - [facility] BUN/creatinine ratioOrdered By: Nimo Loera on 05-21-2024 Urea nitrogen/Creatinine [Mass ratio] 16.7 mg/mg - [facility] Basic Metabolic Profile (BMP )on 05-21-2024 BUN/CRE 16.7 RATIO Normal 12-06 [facility] Comment on above: Performed By: #### L 100.0100, L503.7505, L500.2500, L501.9520 #### [facility] [address] [place], [address] Calcium [Mass/Vol] 9.4 mg/dL Normal 7.6-11.[address] [facility] Comment on above: Performed By: #### L 100.0100, L503.7505, L500.2500, L501.9520 #### [facility] [address] [place], [address] Chloride [Moles/Vol] 101 mmol/L Normal 98-108 [facility] Comment on above: Performed By: #### L 100.0100, L503.7505, L500.2500, L501.9520 #### [facility] [address] [place], [address] CO2 [Moles/Vol] 27.1 mmol/L Normal 21.0-32.0 [facility] Comment on above: Performed By: #### L 100.0100, L503.7505, L500.2500, L501.9520 #### [facility] [address] [place], [address] Creatinine [Mass/Vol] 1.26 mg/dL High 0.70-1.20 [facility] Comment on above: Performed By: #### L 100.0100, L503.7505, L500.2500, L501.9520 #### [facility] [address] [place], [address] GAP 10 Normal 5-15 [facility] Comment on above: Performed By: #### L 100.0100, L503.7505, L500.2500, L501.9520 #### [facility] [address] [place], [address] GFR/1.73 sq M.predicted among non-blacks MDRD (S/P/Bld) [Vol rate/Area] 61 mL/min/{1.73_m2} Normal >60 [facility] Comment on above: Result Comment: mL/m in/1.73m2 CKD-EPI Creatinine Equation (2020) Performed By: #### L 100.0100, L503.7505, L500.2500, L501.9520 #### [facility] [address] [place], [address] Glucose [Mass/Vol] 107 mg/dL High 70-[address] [facility] Comment on above: Performed By: #### L 100.0100, L503.7505, L500.2500, L501.9520 #### [facility] [address] [place], [address] Potassium [Moles/Vol] 5.0 mmol/L Normal 3.3-5.1 [facility] Comment on above: Performed By: #### L 100.0100, L503.7505, L500.2500, L501.9520 #### [facility] [address] [place], [address] Sodium [Moles/Vol] 139 mmol/L Normal 133-[address] [facility] Comment on above: Performed By: #### L 100.0100, L503.7505, L500.2500, L501.9520 #### [facility] [address] [place], [address] Urea nitrogen [Mass/Vol] 21 mg/dL High 4-19 [facility] Comment on above: Performed By: #### L 100.0100, L503.7505, L500.2500, L501.9520 #### [facility] [address] [place], [address] Basophil percentageOrdered B y: Nimo Loera on 05-21-2024 Basophils/100 WBC (Bld) 0.9 % 0-1 [facility] CBC W/Diff, Automatedon Absolute Lymph 1.64 X10 3/uL Normal 0.83-4.51 [facility] Comment on above: Performed By: #### L 100.0100, L503.7505, L500.2500, L501.9520 #### [facility] [address] [place], [address] Absolute Neut 5.8 X10 3/uL Normal 2.0-7.7 [facility] Comment on above: Performed By: #### L 100.0100, L503.7505, L500.2500, L501.9520 #### [facility] [address] [place], [address] Basophils/100 WBC (Bld) 0.9 % Normal 0-1 [facility] Comment on above: Performed By: #### L 100.0100, L503.7505, L500.2500, L501.9520 #### [facility] [address] [place], [address] Eosinophils/100 WBC (Bld) 4.4 % Normal 0-5 [facility] Comment on above: Performed By: #### L 100.0100, L503.7505, L500.2500, L501.9520 #### [facility] [address] [place], [address] Erythrocyte distribution width (RBC) [Ratio] 13.1 % Normal 11.6-14.6 [facility] Comment on above: Performed By: #### L 100.0100, L503.7505, L500.2500, L501.9520 #### [facility] [address] [place], [address] Hematocrit (Bld) [Volume fraction] 47.8 % Normal 40-54 [facility] Comment on above: Performed By: #### L 100.0100, L503.7505, L500.2500, L501.9520 #### [facility] [address] [place], [address] Hemoglobin (Bld) [Mass/Vol] 15.5 g/dL Normal 13.0-16.5 [facility] Comment on above: Performed By: #### L 100.0100, L503.7505, L500.2500, L501.9520 #### [facility] [address] [place], [address] IG% 0.300 Normal 0.0-0.9 [facility] Comment on above: Result Comment: IG% - Immature Granulocytes (promyelocytes, myelocytes and metamyelocytes) > 1% indicates that a LEFT SHIFT is Present. Performed By: #### L 100.0100, L503.7505, L500.2500, L501.9520 #### [facility] [address] [place], [address] Lymphocytes/100 WBC (Bld) 18.2 % Low 19-41 [facility] Comment on above: Performed By: #### L 100.0100, L503.7505, L500.2500, L501.9520 #### [facility] [address] [place], [address] MCH (RBC) [Entitic mass] 31.7 pg Normal 27.0-32.0 [facility] Comment on above: Performed By: #### L 100.0100, L503.7505, L500.2500, L501.9520 #### [facility] [address] [place], [address] MCHC (RBC) [Mass/Vol] 32.4 g/dL Normal 32-36 [facility] Comment on above: Performed By: #### L 100.0100, L503.7505, L500.2500, L501.9520 #### [facility] [address] [place], [address] MCV (RBC) [Entitic vol] 97.8 fL High 80-94 [facility] Comment on above: Performed By: #### L 100.0100, L503.7505, L500.2500, L501.9520 #### [facility] [address] [place], [address] Monocytes/100 WBC (Bld) 12.1 % High 0-10 [facility] Comment on above: Performed By: #### L 100.0100, L503.7505, L500.2500, L501.9520 #### [facility] [address] [place], [address] Neutrophils/100 WBC (Bld) 64.1 % Normal 47-70 [facility] Comment on above: Performed By: #### L 100.0100, L503.7505, L500.2500, L501.9520 #### [facility] [address] [place], [address] Nucleated RBC (Bld) [#/Vol] 0 10*3/uL Normal 0-5 [facility] Comment on above: Performed By: #### L 100.0100, L503.7505, L500.2500, L501.9520 #### [facility] [address] [place], [address] Platelet mean volume (Bld) [Entitic vol] 9.8 fL Normal 6.2-12.0 [facility] Comment on above: Performed By: #### L 100.0100, L503.7505, L500.2500, L501.9520 #### [facility] [address] [place], [address] Platelets (Bld) [#/Vol] 230 10*3/uL Normal 150-450 [facility] Comment on above: Performed By: #### L 100.0100, L503.7505, L500.2500, L501.9520 #### [facility] [address] [place], [address] RBC (Bld) [#/Vol] 4.89 10*6/uL Normal 4.6-6.2 [facility] Comment on above: Performed By: #### L 100.0100, L503.7505, L500.2500, L501.9520 #### [facility] [address] [place], [address] RDW SD 46.5 fl High 35.1-43.9 [facility] Comment on above: Performed By: #### L 100.0100, L503.7505, L500.2500, L501.9520 #### [facility] [address] [place], [address] WBC (Bld) [#/Vol] 9.0 10*3/uL Normal 4.4-11.[address] [facility] Comment on above: Performed By: #### L 100.0100, L503.7505, L500.2500, L501.9520 #### [facility] [address] [place], [address] Carbon dioxide, total [Moles /volume] in Central venous bloodOrdered By: Nimo Loera on 05-21-2024 CO2 [Moles/Vol] 27.1 mmol/L 21.0-32.0 [facility] Cardiology Visit Reporton Cardiology Visit Report [facility] [address] [place], [place] [address] OFFICE VISIT Date of Service: 05/21/24 MR#: [id number] Acct: [id number] Name: CHASITY PINO Rep #: [id number] : 1950 Provider: Valerie Hooper Age/Sex: 73/M Location: [facility] Status: Signed HPI HPI History of Present Illness Details: Chasity Pino is a 73-year-old white male with a history of paroxysmal atrial fibrillation, hypertension and hyperlipidemia. Patient presented to the emergency room on 12/03/2022 with complaints of chest pain that radiated to his neck and shortness of breath. In the emergency room his EKG demonstrated atrial fibrillation with a rate of 72 bpm with an old septal infarct. His troponin was noted to be elevated and he was admitted for non-ST elevation TX. He did undergo a cardiac catheterization on 12/04/2022 which demonstrated normal coronary arteries, and dilated cardiomyopathy with an ejection fraction of about 18%. He was discharged from the hospital on amiodarone 200 mg daily. He underwent cardioversion on 01/07/2023. His echocardiogram from 02/27/2023 demonstrated an improved ejection fraction of 40%. He did have a repeat echocardiogram in May of 2023 and it demonstrated improvement with his estimated ejection fraction at 50%. In February 2024 patient underwent a total right knee replacement. In April he had a back injection for chronic pain. Patient was in for follow-up on his knee replacement and was noted to be in an irregular rhythm with a heart fast heart rate. He was advised to contact our office. He did show up in our office stating that they had asked him to come over to our office. After obtaining patient's vitals it was noted that his heart rate was elevated. We did obtain an EKG. He is in atrial for with RVR with a heart rate of 131. Patient is not aware of this. In fact he feels fine. He does not have any chest pain. He does not have any worsening shortness of breath. He does not have any lightheadedness and/or dizziness. He does not have any lower extremity edema. Intake Vital Signs 02/23/24 16:44 05/21/24 11:52 05/21/24 11:54 Height 5 ft 8 in 5 ft 8 in BP 134/84 H Blood Pressure Location Lt brachial Position Sitting Respiration 18 Pulse 131 H Pulse Source Monitor Intake Visit Reasons: PER CONNIE Allergies Sulfa (Sulfonamide Antibiotics) Allergy (Verified 02/23/24 08:37) sores in mouth sulfamethoxazole (From Bactrim) Allergy (Verified 02/23/24 08:37) Sores in mouth amiodarone Adverse Reaction (Intermediate, Verified 02/23/24 08:37) Affecting vision/eyesight Medications ???Medication ???Instructions ???Recorded ???Confirmed ???Type tamsulosin 0.4 mg capsule (Flomax) 0.4 mg PO DAILY urine 07/30/21 0 05/21/24 History omeprazole magnesium 20 mg 20 mg PO DAILY stomach 11/06/22 History tablet,delayed release (Prilosec OTC) lactobacillus combination no.9 4 4,000 mmu cells PO QDAY 11/20/23 0 05/21/24 History billion cell capsule (Adult 50 Plus Probiotic) dapagliflozin propanediol 10 mg 10 mg PO DAILY #90 tabs 12/30/23 0 05/21/24 Rx tablet (Farxiga) rivaroxaban 20 mg tablet (Xarelto) 20 mg PO DAILY blood thinner #90 12/30/23 05/21/24 Rx tabs acetaminophen 500 mg tablet 1,000 mg (2 x 500 mg) PO Q8H 14 05/21/24 Rx days #84 tabs sennosides 8.6 mg-docusate sodium 2 tab PO BID 3 days #12 tabs 09/1005/21/24 Rx 50 mg tablet (Stimulant Laxative Plus) spironolactone 25 mg tablet 25 mg PO DAILY #90 tabs 04/08/24 0 05/21/24 Rx carvedilol 12.5 mg tablet 12.5 mg PO BID #180 tabs 05/21/24 05/21/24 Rx furosemide 20 mg tablet (Lasix) 20 mg PO QAM #30 tabs 05/21/24 Rx gabapentin 300 mg capsule 300 mg PO TID 05/21/24 05/21/24 Hi story Ejection fraction %: 50 Have you fallen in the past year?: No PFSH Medical History Wears glasses BPH (benign prostatic hyperplasia) Prostate disease High cholesterol Small intestinal bacterial overgrowth (SIBO) Leg cramps Non-smoker History of Holter monitoring History of echocardiogram Cardiology follow-up encounter Urinary frequency Smokeless tobacco use History of cardioversion Non-ST elevated myocardial infarction Nonischemic cardiomyopathy Bone spur of right foot Coronary artery calcification Essential hypertension Paroxysmal atrial fibrillation senior care (current) use of anticoagulants Hyperlipidemia Abnormal EKG Premature ventricular contractions Arthritis New onset atrial fibrillation Surgical History History of cardiac catheterization History of esophagogastroduodenoscopy (EGD) History of bilateral cataract extraction History of left heart catheter (more content not included)... Normal [facility] Chloride assayOrdered By: Monisha Loera on 05-21-2024 Chloride [Moles/Vol] 101 mmol/L 98-108 [facility] Eosinophil percentageOrdered By: Nimo Loera on 05-21-2024 Eosinophils/100 WBC (Bld) 4.4 % 0-5 [facility] Erythrocyte distribution wid th (RBC) [Ratio]Ordered By: Nimo Loera on 05-21-2024 Erythrocyte distribution width (RBC) [Entitic vol] 46.5 fL High 35.1-43.9 [facility] Erythrocyte distribution wid th ratioOrdered By: Nimo Loera on 05-21-2024 Erythrocyte distribution width (RBC) [Ratio] 13.1 % 11.6-14.6 [facility] GFR/1.73 sq M.predicted marjan g non-blacks MDRD (S/P/Bld) [Vol rate/Area]Ordered By: Nimo Loera on 05-21-2024 Estimated GFR (MDRD) Non-Af Amer 61 >60 [facility] Comment on above: mL/min/1.73m2 CKD-EP I Creatinine Equation (2020) Hematocrit Auto (Bld) [Volum e fraction]Ordered By: Nimo Loera on 05-21-2024 Hematocrit (Bld) [Volume fraction] 47.8 % 40-54 [facility] Hemoglobin measurementOrdere d By: Nimo Loera on 05-21-2024 Hemoglobin (Bld) [Mass/Vol] 15.5 g/dL 13.0-16.5 [facility] Immature granulocytes/100 WB C Auto (Bld)Ordered By: Nimo Loera on 05-21-2024 Immature granulocytes/100 WBC (Bld) 0.300 % 0.0-0.9 [facility] Comment on above: IG% - Immature Granu locytes (promyelocytes, myelocytes and metamyelocytes) > 1% indicates that a LEFT SHIFT is Present. L503.7505on 05-21-2024 Natriuretic peptide B (Bld) [Mass/Vol] 3061 pg/mL High <=900 [facility] Comment on above: Result Comment: Hear t Failure Unlikely: < 300 pg/mL Heart Failure Likely < 50 Years: > 450 pg/mL 50-75 Years: > 900 pg/mL >75 Years: > 1800 pg/mL Performed By: #### L 100.0100, L503.7505, L500.2500, L501.9520 #### [facility] [address] [place], [address] Lymphocytes Auto (Unsp spec) [#/Vol]Ordered By: Nimo Loera on 05-21-2024 Lymphocytes (Bld) [#/Vol] 1.64 10*3/uL 0.83-4.51 [facility] Lymphocytes/100 WBC Auto (Un sp spec)Ordered By: Nimo Loera on 05-21-2024 Lymphocytes/100 WBC (Bld) 18.2 % Low 19-41 [facility] MCV (mean corpuscular volume ) determinationOrdered By: Nimo Loera on 05-21-2024 MCV (RBC) [Entitic vol] 97.8 fL High 80-94 [facility] Mean corpuscular hemoglobin (MCH) determinationOrdered By: Nimo Loera on 05-21-2024 MCH (RBC) [Entitic mass] 31.7 pg 27.0-32.0 [facility] Mean corpuscular hemoglobin concentration (MCHC) determinationOrdered By: Nimo Loera on 05-21-2024 MCHC (RBC) [Mass/Vol] 32.4 g/dL 32-36 [facility] Mean platelet volume determi nationOrdered By: Nimo Loera on 05-21-2024 Platelet mean volume (Bld) [Entitic vol] 9.8 fL 6.2-12.0 [facility] Monocyte percentageOrdered B y: Nimo Loera on 05-21-2024 Monocytes/100 WBC (Bld) 12.1 % High 0-10 [facility] Natriuretic peptide.B prohor andrei N-Terminal [Mass/Vol]Ordered By: Nimo Loera on 05-21-2024 Natriuretic peptide B (Bld) [Mass/Vol] 3061 pg/mL High <900 [facility] Comment on above: Heart Failure Unlike ly: < 300 pg/mLHeart Failure Likely< 50 Years: > 450 pg/mL50-75 Years: > 900 pg/mL>75 Years: > 1800 pg/mL Neutrophil percentageOrdered By: Nimo Loera on 05-21-2024 Neutrophils/100 WBC (Bld) 64.1 % 47-70 [facility] Nucleated red blood cell per centageOrdered By: Nimo Loera on 05-21-2024 Nucleated RBC/100 WBC (Bld) [Ratio] 0 % 0-5 [facility] Platelet countOrdered By: Monisha Loera on 05-21-2024 Platelets (Bld) [#/Vol] 230 10*3/uL 150-450 [facility] Potassium (Unsp spec) [Mass/ Vol]Ordered By: Nimo Loera on 05-21-2024 Potassium [Moles/Vol] 5.0 mmol/L 3.3-5.1 [facility] RBC Auto (Bld) [#/Vol]Ordere d By: Nimo Loera on 05-21-2024 RBC (Bld) [#/Vol] 4.89 10*6/uL 4.6-6.2 [facility] Serum creatinine measurement (mass/volume)Ordered By: Nimo Loera on 05-21-2024 Creatinine [Mass/Vol] 1.26 mg/dL High 0.70-1.20 [facility] Serum glucose measurement (m ass/volume)Ordered By: Nimo Loera on 05-21-2024 Glucose [Mass/Vol] 107 mg/dL High 70-[address] [facility] Serum or plasma calcium rufino urement (mass/volume)Ordered By: Nimo Loera on 05-21-2024 Calcium [Mass/Vol] 9.4 mg/dL 7.6-11.[address] [facility] Serum or plasma urea nitroge n measurement (mass/volume)Ordered By: Nimo Loera on 05-21-2024 Urea nitrogen [Mass/Vol] 21 mg/dL High 4-19 [facility] Sodium levelOrdered By: Wilson Loera on 05-21-2024 Sodium [Moles/Vol] 139 mmol/L 133-[address] [facility] TSH DL <= 0.005 mIU/L QnOrde red By: Nimo Loear on 05-21-2024 Thyroid Stimulating Hormone (TSH) 4.170 uIU/mL 0.300-4.20 0 [facility] Thyroid Stim Hormone (TSH)on 05-21-2024 TSH 4.170 uIU/mL Normal 0.300-4.20 0 [facility] Comment on above: Performed By: #### L 100.0100, L503.7505, L500.2500, L501.9520 #### [facility] [address] [place], [address] White blood cell (WBC) count Ordered By: Nimo Loera on 05-21-2024 WBC (Bld) [#/Vol] 9.0 10*3/uL 4.4-11.[address] [facility] TSHon 04-30-2024 TSH Qn 0.90 m[IU]/L Normal 0.40-4.50 [facility] Comment on above: Order Comment: FASTI NG:NO FASTING: NO Performed By: #### 8 99 #### [facility] [address] [place] [address] Lab Pack Chemist: Dejon Saucedo MD XR FOOT RIGHT 3+ VIEWS (SOHAM DARBisi)on 04-12-2024 XR FOOT RIGHT 3+ VIEWS (STANDARD) X-rays 3 views right foot: There is significant arthritis of the fourth and fifth metatarsal cuboid joints, talonavicular and naviculocuneiform joints. There is previous arthrodesis of the second third metatarsal cuneiforms. Inferior calcaneal spur noted. Dictated by: REJI ROSE on FriApr 12, 2024 4:47:44 PM EST Transcribed by: REJI ROSE on FriApr 12, 2024 4:47:44 PM EST Finalized by: REJI ROSE on FriApr 12, 2024 4:47:44 PM EST Normal [facility] Comment on above: Order Comment: Injur y/Trauma or Illness?:Injury/Trauma How long have you had these symptoms (acute/chronic)?:Acute Reason for exam?:right foot pain since knee replacement History of cancer?:U Surgeries, chemotherapy, or radiation?:YES Type of Exam?:Initial Mechanism of injury?:no injury XR Foot - right 3 Viewson X-rays 3 views right foot: There is significant arthritis of the fourth and fifth metatarsal cuboid joints, talonavicular and naviculocuneiform joints. There is previous arthrodesis of the second third metatarsal cuneiforms. Inferior calcaneal spur noted. GE RIS [facility] Radiology Study observation (narrative) [facility] Venous Duplex US, Unilateral on 02-26-2024 Venous Duplex US, Unilateral [facility] [address] [place] [address] Venous Duplex US, Unilateral 02/26/24 1459 MR#: [id number] Acct: [id number] Name: CHASITY PINO Rep #: [id number] : 1950 73 From: Nish Middleton MD Attending Dr: Bin Pittman PA-C Status: REG CL I Ordering Dr: Bin Pittman PA-C Date: 02/26/24 Location: [facility] Sex: M C Admitted: Reason For Study: Right leg pain RIGHT LEFT GSV is normal. CFV is compressible, spontaneous, phasic, CFV is compressible, spontaneous, phasic, competent, and demonstrates normal competent and demonstrates normal augmentation. augmentation. FV is compressible, spontaneous, phasic, competent and demonstrates normal augmentation. POP V is compressible, spontaneous, phasic, competent and demonstrates normal augmentation. T/P Trunk is compressible. PTV is compressible. RT PerV is compressible. Procedure This is a venous duplex using B-mode, color flow and spectral Doppler. Exam performed in department. A preliminary report was called and/or faxed to Dr. Pittman. VL/Venous Duplex US, Unilateral Interpretation Summary Deep veins of the right lower extremity are patent and compressible segmentally. There is no evidence of right lower extremity deep vein thrombosis. The right great saphenous vein appears patent and compressible segmentally. Ordering Physician: Bin Pittman Referring Physician: Eben Vo Performed By: Lien Bustamante RVT 02/26/24 3083 Date Nish Kane MD CC: ESTEFANY Pittman; Dr. Eben Vo MD Date Dictated: 02/26/241458 Date Transcribed: 02/26/241852 Director Of Collections And Archives: Signed Normal [facility] Basic Metabolic Profile (BMP )on 02-24-2024 BUN/CRE 16.9 RATIO Normal 10-20 [facility] Comment on above: Performed By: #### L 500.2500, L100.0500 ####[facility] [address] [place], [address] CA,Total 8.2 mg/dL Low 8.5-10.1 [facility] Comment on above: Performed By: #### L 500.2500, L100.0500 ####[facility] [address] [place], [address] Chloride [Moles/Vol] 103 mmol/L Normal 98-107 [facility] Comment on above: Performed By: #### L 500.2500, L100.0500 ####[facility] [address] [place], [address] CO2 [Moles/Vol] 27.0 mmol/L Normal 21.0-32.0 [facility] Comment on above: Performed By: #### L 500.2500, L100.0500 ####[facility] [address] [place], [address] Creatinine [Mass/Vol] 1.30 mg/dL Normal 0.70-1.30 [facility] Comment on above: Result Comment: The validity of the calculated GFR GFRAA in patients over 70 years has not been determined. Clinical correlation is essential. Performed By: #### L 500.2500, L100.0500 ####[facility] [address] [place], [address] ECRCL 49.69 ml/min Normal [facility] Comment on above: Performed By: #### L 500.2500, L100.0500 ####[facility] [address] [place], [address] EST GFR - AA 70 mL/min Normal >60 [facility] Comment on above: Result Comment: Afri can Filipino GFR Calc Performed By: #### L 500.2500, L100.0500 ####[facility] [address] [place], [address] GAP 5 Normal 5-15 [facility] Comment on above: Performed By: #### L 500.2500, L100.0500 ####[facility] [address] [place], [address] GFR/1.73 sq M.predicted among non-blacks MDRD (S/P/Bld) [Vol rate/Area] 58 mL/min/{1.73_m2} Low >60 [facility] Comment on above: Result Comment: Non- GFR Calc Performed By: #### L 500.2500, L100.0500 ####[facility] [address] [place], [address] Glucose [Mass/Vol] 126 mg/dL High 74-[address] [facility] Comment on above: Result Comment: Fast ing Glucose result greater than or equal to 126 mg/dL suggests DIABETES MELLITUS per A.D.A. criteria. Performed By: #### L 500.2500, L100.0500 ####[facility] [address] [place], [address] Potassium [Moles/Vol] 4.2 mmol/L Normal 3.5-5.1 [facility] Comment on above: Performed By: #### L 500.2500, L100.0500 ####[facility] [address] [place], [address] Sodium [Moles/Vol] 135 mmol/L Low 136-[address] [facility] Comment on above: Performed By: #### L 500.2500, L100.0500 ####[facility] [address] [place], [address] Urea nitrogen [Mass/Vol] 22 mg/dL High 7-18 [facility] Comment on above: Performed By: #### L 500.2500, L100.0500 ####[facility] [address] [place], [address] Blood urea nitrogen (BUN)/cr eatinine ratioOrdered By: Myles Iraheta on 02-24-2024 Urea nitrogen/Creatinine [Mass ratio] 16.9 mg/mg 10-20 [facility] CBC-Complete Blood Cnt No Di ffon 02-24-2024 Erythrocyte distribution width (RBC) [Ratio] 13.3 % Normal 11.6-14.6 [facility] Comment on above: Performed By: #### L 500.2500, L100.0500 ####[facility] [address] [place], [address] Hematocrit (Bld) [Volume fraction] 37.8 % Low 40-54 [facility] Comment on above: Performed By: #### L 500.2500, L100.0500 ####[facility] [address] [place], [address] Hemoglobin (Bld) [Mass/Vol] 12.5 g/dL Low 13.0-16.5 [facility] Comment on above: Performed By: #### L 500.2500, L100.0500 ####[facility] [address] [place], [address] MCH (RBC) [Entitic mass] 32.2 pg High 27.0-32.0 [facility] Comment on above: Performed By: #### L 500.2500, L100.0500 ####[facility] [address] [place], [address] MCHC (RBC) [Mass/Vol] 33.1 g/dL Normal 32-36 [facility] Comment on above: Performed By: #### L 500.2500, L100.0500 ####[facility] [address] [place], [address] MCV (RBC) [Entitic vol] 97.4 fL High 80-94 [facility] Comment on above: Performed By: #### L 500.2500, L100.0500 ####[facility] [address] [place], [address] Platelet mean volume (Bld) [Entitic vol] 10.0 fL Normal 6.2-12.0 [facility] Comment on above: Performed By: #### L 500.2500, L100.0500 ####[facility] [address] [place], [address] Platelets (Bld) [#/Vol] 161 10*3/uL Normal 150-450 [facility] Comment on above: Performed By: #### L 500.2500, L100.0500 ####[facility] [address] [place], [address] RBC (Bld) [#/Vol] 3.88 10*6/uL Low 4.6-6.2 [facility] Comment on above: Performed By: #### L 500.2500, L100.0500 ####[facility] [address] [place], [address] RDW SD 47.7 fl High 35.1-43.9 [facility] Comment on above: Performed By: #### L 500.2500, L100.0500 ####[facility] [address] [place], [address] WBC (Bld) [#/Vol] 13.4 10*3/uL High 4.4-11.0 [facility] Comment on above: Performed By: #### L 500.2500, L100.0500 ####[facility] [address] [place], [address] Carbon dioxide measurementOr dered By: Myles Connie on 02-24-2024 CO2 [Moles/Vol] 27.0 mmol/L 21.0-32.0 [facility] Chloride measurementOrdered By: Myles Connie on 02-24-2024 Chloride [Moles/Vol] 103 mmol/L 98-107 [facility] Discharge Instructionon Discharge Instruction [facility] Medical Records Department [address] [place] [address] Instructions for Home/Discharge Instructions 02/24/24 0825 MR#: [id number] Acct: [id number] Name: CHASITY PINO Rep #: [id number] : 1950 73 From: Bin SHARMA PA-C PCP: Dr. Eben Vo MD Status:ADM MADDIE Discharge Instructions Diet Discharge Diet: No restrictions DC O2, CPAP, BIPAP needs Home O2 Discharge instructions: No Dressing / Incision Discharge Activity: May Not Drive (No driving for 6 weeks postoperatively. Must also be off all narcotics and able to walk 100 feet without the use of cane or walker.) May shower in (days): 1 (Please turn dressing away from water. Okay to get wet as long as dressing is intact to skin.) Ice area for (Minutes): 20 (Every 1-2 hours while awake. Please place barrier between the skin and ice pack.) Weight Bearing Status: Weight bearing as tolerated Keep extremity elevated above heart level: Operative Extremity Dressing / Incision Call your doctor if your incision/area has: Continuous Slow Oozing, Sudden Increased Bleeding, Increased Pain/ Swelling, Increased Redness and Foul Smelling Discharge Call your doctor if you observe: Fever of 101 or Higher, Coldness, Increased Pain, Numbness or Tingling, Change in Color, Shortness of breath, Chest pain, Calf discomfort and Uncontrolled pain Remove Dressing in: 4 days (Okay to remove dressing on February 28, 2024) Additional Dressing/Incision Instructions:: Follow [place] [facility] Post-op Instructions. Once postoperative dressing has been removed only use gentle soap and water over the incision. Do not use any ointments, Neosporin, salves, alcohol pads over the incision for 6 weeks postoperatively. Do not submerge underwater for 6 weeks postoperatively. Continue with KCEIA hose/elastic stockings for 2 weeks postoperatively. May remove at nighttime but needs to be placed back on the leg during the day. Do NOT use alcohol with narcotic pain medication. Do NOT make important decisions while taking narcotic medication. If you have problems with taking your medication (rash, itching, nausea, etc.) call the office at once. Follow Up Care Test Results: Test results from this visit will be discussed in further detail at your follow-up appointment, if applicable. Discharge Plan Admission Admit Date/Time: 02/23/24 16:00 Attending Provider: Myles Iraheta Primary Care Provider: Eben Vo Consulting Providers: Teresa Garcia; Eric Prince; Lana Young Discharge Orders/Prescriptions Prescriptions: New acetaminophen 500 mg Tablet 1,000 mg PO Q8H 14 Days Qty: 84 0RF Rx Instructions: Do not take more than 3000 mg Tylenol in a 24-hour period. oxycodone 5 mg Tablet 5 - 10 mg PO Q4H PRN PRN (Reason: as needed for pain) 7 Days Qty: 42 0RF sennosides-docusate sodium [Stimulant Laxative Plus] 8.6-50 mg Tablet 2 tab PO BID 3 Days Qty: 12 0RF Rx Instructions: Take until first bowel movement, then as needed Continued tamsulosin [Flomax] 0.4 mg capsule 0.4 mg PO DAILY spironolactone 25 mg tablet 25 mg PO DAILY Qty: 90 3RF levothyroxine 50 mcg tablet 50 mcg PO QDAY Adult 50 Plus Probiotic 4 billion cell capsule 4,000 mmu cells PO QDAY Rx Instructions: administer with a meal carvedilol 6.25 mg tablet 6.25 mg PO BID Qty: 60 3RF Rx Instructions: must administer with a meal/food omeprazole magnesium [Prilosec OTC] 20 mg tablet,delayed release (DR/EC) 20 mg PO DAILY Xarelto 20 mg tablet 20 mg PO DAILY Qty: 90 4RF Rx Instructions: must administer with a meal/food dapagliflozin propanediol [Farxiga] 10 mg tablet 10 mg PO DAILY Qty: 90 4RF Other Ambulatory Orders: 12 Lead EKG (Routine) Timeframe: 1 Day Location: None Selected Ordered By: Dr. Myles Iraheta Referrals / Follow Up: Physical,Therapy [Other] - 02/26/24 11:00 am Eben Vo MD [Primary Care Provider] - Anette Montgomery PA [Med Staff - [facility]] - 03/08/24 3:45 pm Disposition Disposition (needs filled in before D/C Order can be placed): Home, Self Care 02/24/24 0832 Bin SHARMA PA-C CC: Dr. Teresa Garcia MD; Dr. Eben Vo MD; Dr. Lana Young MD; Dr. Eric Prince MD Signed Normal [facility] Erythrocyte distribution wid th (RBC) [Ratio]Ordered By: Myles Iraheta on 02-24-2024 Erythrocyte distribution width (RBC) [Entitic vol] 47.7 fL High 35.1-43.9 [facility] Erythrocyte distribution wid th ratioOrdered By: Myles Iraheta on 02-24-2024 Erythrocyte distribution width (RBC) [Ratio] 13.3 % 11.6-14.6 [facility] Estimated glomerular filtrat ion rate (GFR) AmericanOrdered By: Myles Iraheta on 02-24-2024 Estimated GFR (MDRD) Amer 70 mL/min >60 [facility] Comment on above: GFR Calc Estimation of creatinine manjinder aranceOrdered By: Myles Iraheta on 02-24-2024 Estimated Creatinine Clearance Calc 49.69 ml/min [facility] Glomerular filtration rate ( GFR) estimationOrdered By: Myles Iraheta on 02-24-2024 Estimated GFR (MDRD) Non-Af Amer 58 mL/min Low >60 [facility] Comment on above: Non- GFR Calc Glucose measurementOrdered B y: Myles Iraheta on 02-24-2024 Glucose [Mass/Vol] 126 mg/dL High 74-[address] [facility] Comment on above: Fasting Glucose resu lt greater than or equal to 126 mg/dL suggests DIABETES MELLITUS per A.D.A. criteria. Hematocrit Auto (Bld) [Volum e fraction]Ordered By: Myles Iraheta on 02-24-2024 Hematocrit (Bld) [Volume fraction] 37.8 % Low 40-54 [facility] Hemoglobin measurementOrdere d By: Myles Iraheta on 02-24-2024 Hemoglobin (Bld) [Mass/Vol] 12.5 g/dL Low 13.0-16.5 [facility] MCV (mean corpuscular volume ) determinationOrdered By: Myles Iraheta on 02-24-2024 MCV (RBC) [Entitic vol] 97.4 fL High 80-94 [facility] Mean corpuscular hemoglobin (MCH) determinationOrdered By: Myles Iraheta on 02-24-2024 MCH (RBC) [Entitic mass] 32.2 pg High 27.0-32.0 [facility] Mean corpuscular hemoglobin concentration (MCHC) determinationOrdered By: Myles Iraheta on 02-24-2024 MCHC (RBC) [Mass/Vol] 33.1 g/dL 32-36 [facility] Mean platelet volume determi nationOrdered By: Myles Iraheta on 02-24-2024 Platelet mean volume (Bld) [Entitic vol] 10.0 fL 6.2-12.0 [facility] Platelet countOrdered By: St tyson Iraheta on 02-24-2024 Platelets (Bld) [#/Vol] 161 10*3/uL 150-450 [facility] Potassium measurementOrdered By: Myles Iraheta on 02-24-2024 Potassium [Moles/Vol] 4.2 mmol/L 3.5-5.1 [facility] RBC Auto (Bld) [#/Vol]Ordere d By: Myles Iraheta on 02-24-2024 RBC (Bld) [#/Vol] 3.88 10*6/uL Low 4.6-6.2 [facility] Serum anion gap measurementO rdered By: Myles Iraheta on 02-24-2024 Anion gap [Moles/Vol] 5 mmol/L 5-15 [facility] Serum or plasma calcium rufino urement (mass/volume)Ordered By: Myles Iraheta on 02-24-2024 Calcium [Mass/Vol] 8.2 mg/dL Low 8.5-10.[address] [facility] Serum or plasma creatinine m easurement (mass/volume)Ordered By: Myles Iraheta on 01-07-2025 Creatinine [Mass/Vol] 1.30 mg/dL 0.70-1.30 [facility] Comment on above: The validity of the calculated GFR & GFRAA in patients over 70 years has not been determined. Clinical correlation is essential. Serum or plasma urea nitroge n measurement (mass/volume)Ordered By: Myles Iraheta on 02-24-2024 Urea nitrogen [Mass/Vol] 22 mg/dL High 7-18 [facility] Sodium levelOrdered By: Jude Iraheta on 02-24-2024 Sodium [Moles/Vol] 135 mmol/L Low 136-[address] [facility] White blood cell (WBC) count Ordered By: Myles Iraheta on 02-24-2024 WBC (Bld) [#/Vol] 13.4 10*3/uL High 4.4-11.0 [facility] Bedside Glucoseon 02-23-2024 FINGERSTICK GLU 141 mg/dL High 74-106 [facility] Comment on above: Result Comment: JAMSHID GEMENT OF PATIENT CARE PER NURSING PROTOCOL Performed By: #### L 501.080 #### [facility] [address] [place], [place], [address] FINGERSTICK GLU 96 mg/dL Normal 74-106 [facility] Comment on above: Result Comment: JAMSHID GEMENT OF PATIENT CARE PER NURSING PROTOCOL Performed By: #### L 501.080 #### [facility] [address] [place], [place], [address] Decalcification bone/plaqueo n 02-23-2024 Decalcification bone/plaque Patient Age/Sex Location Account Attending Physician PHUONGCHASITY MOJICA 73/M MS3 [id number] Dr. Myles Iraheta MD Specimen: [id number] Received: 02/23/24 Status: QUE Pleitez Num: [id number] Spec Type: TOTAL KNEE Subm Dr: Dr. Myles Iraheta MD HEADER OPERATION: Robotic assisted right total knee arthroplasty PRE-OP DIAGNOSIS: Severe right knee osteoarthritis TISSUE SUBMITTED: Right knee debrided bone and tissue MICROSCOPIC DIAGNOSIS Bone and soft tissue, right knee, total knee replacement/resection: Pieces of bone with degenerative osteoarthritic changes. Fibroadipose tissue, fibroconnective tissue and reactive synovial tissue. SJ: 02/27/2024 MICROSCOPIC DESCRIPTION Slides are reviewed. GROSS DESCRIPTION Received is one container designated bone and soft tissue right knee. The specimen consists of multiple fragments of wells-yellow bone measuring in aggregate 12.0 x 11.0 x 4.0 cm. Also present attached to the piece of bone is a piece of soft tissue measuring 2.5 x 1.0 x 0.4cm. A number of bony fragments contain articular surfaces consistent with tibial plateau and femoral condyle and displaying prominent osteophyte formation, eburnation and bone erosion. Technical Operations Specialist sections are submitted in two cassettes as follows: 1 - entire soft tissue, 2 - bone after decalcification. / 02/24/2024 TC:5 CPT: 38476, 58036 Patient Age/Sex Location Account Attending Physician CHASITY PINO 73/M MS3 [id number] Dr. Myles Iraheta MD Signed (signature on file) Dr. Johan Kunz MD 02/27/24 1129 [facility] Comment on above: Performed By: #### P DEC ####[facility] [facility] [address] [place], [address] Gl[facility] at [facility] deOrdered By: Myles Iraheta on 02-23-2024 Bedside Glucose ([facility] Panel) 141 mg/dL High 74-106 [facility] Comment on above: MANAGEMENT OF PATIEN T CARE PER NURSING PROTOCOL Knee 1 or 2 Viewson 02-22-19 Knee 1 or 2 Views [facility] Imaging Services [address] [place] [address] Knee 1 or 2 Views MR#: [id number] Acct: [id number] Name: CHASITY PINO Rep #: [id number] : 1950 M 73 From: Ambrose De La Cruz MD PCP: Dr. Eben Vo MD Status: [facility] Study: Knee 1 or 2 Views Date of Exam: 02/23/24 Exam# [id number] Ordering Dr: Myles Iraheta MD [id number] EXAM: XR RIGHT KNEE, 1 OR 2 VIEWS CLINICAL INDICATION: post op -- AP and Lateral xray of operative knee in PACU TECHNIQUE: Frontal and/or lateral views of the right knee. COMPARISON: No relevant prior studies available. FINDINGS: Right total knee arthroplasty with postsurgical changes that are very recent; there is satisfactory alignment and no complications. Intra-articular gas and soft tissue gas anteriorly at the level of the distal femur are expected findings. No acute or healing fracture or malalignment. Vascular calcifications posteriorly. RAD/Knee 1 or 2 Views IMPRESSION: No unexpected postsurgical changes status post very recent total knee arthroplasty. Electronically Signed: Ambrose De La Cruz MD at 13:38 EST , CC: Dr. Eben Vo MD; Dr. Myles Iraheta MD Director Of Collections And Archives: Signed Normal [facility] MR/POSTOP.ANEon 02-23-2024 MR/POSTOP.[facility] Medical Records Department [address] [place] [address] Anesthesia Postop Eval I 02/23/24 1243 MR#: [id number] Acct: [id number] Name: PHUONGCHASITY MOJICA CHERLY Rep #: [id number] : 1950 73 From: Noble Mccabe PCP: Dr. Eben Vo MD Status:[place] [facility] [place] Race: C Location: [place] [address] Anesthesia: Postop Eval I Current Vital Signs Temperature: 97.2 F Pulse Rate: 51 Blood Pressure: 103/57 Respiratory Rate: 16 Pulse Ox: 97 Oxygen Delivery Method: Room Air Assessment Airway patent: Yes Spontaneous unlabored respirations: Yes Mental status: Awake and Calm nausea: No Vomiting: No Anesthesia Complication: No Fluid Hydration Crystalloid volume administer (ml): 1,200 Total IV fluid infused: 1,200 Progress Note Anesthesia document: Postop Eval 1 completed: Yes 02/23/24 1244 Date Noble Rudd Signature: Date CC: Signed Normal [facility] MR/[id number] 02-23-2024 [facility] Medical Records Department [address] [place] [address] Anesthesia Postop Eval II 02/23/24 1243 MR#: [id number] Acct: [id number] Name: MINNIECHASITY LEIGH CHERYL Rep #: [id number] : 1950 73 From: Noble Mccabe PCP: Dr. Eben Vo MD Status:REG [place] Y Race: C Location: [place] [address] Anesthesia Postop Eval I Sum Postop Eval Completion status Anesthesia document: Postop Eval 1 completed: Yes Anesthesia Postop Eval I Summary Anesthesia Postop Eval I Summary: Anesthesia Postop Eval I: Assessment Summary Airway patent Yes 02/23/24 12:43 SUPERVISOR TELEPHONE ANSWERING SERVICE.MDOT Spontaneous unlabored Yes 02/23/24 12:43 SUPERVISOR TELEPHONE ANSWERING SERVICE.MDOT respirations Mental status Awake,Calm 02/23/24 12:43 SUPERVISOR TELEPHONE ANSWERING SERVICE.MDOT nausea No 02/23/24 12:43 SUPERVISOR TELEPHONE ANSWERING SERVICE.MDOT Vomiting No 02/23/24 12:43 SUPERVISOR TELEPHONE ANSWERING SERVICE.MDOT Anesthesia Postop Eval I: Fluid Summary Crystalloid volume administer 1,200 02/23/24 12:43 SUPERVISOR TELEPHONE ANSWERING SERVICE.MDOT (ml) Colloids volume administered ( ml) Blood Product volume administered (ml) Total IV fluid infused 1,200 02/23/24 12:43 SUPERVISOR TELEPHONE ANSWERING SERVICE.MDOT Anesthesia Postop Eval I: Summary Notes Anesthesia Complication No 02/23/24 12:43 SUPERVISOR TELEPHONE ANSWERING SERVICE.MDOT Anesthesia Complication Comment: Post-operative progress note Anesthesia: Postop Eval II Evaluation Mental status: Awake and Calm Pain Level: 0 nausea: No Vomiting: No Complications Anesthesia Complication: No 02/23/24 1244 Date Noble Rudd Signature: Date CC: Signed Normal [facility] Operative Reporton 5 Operative Report [facility] Medical Records Department [address] [place] [address] Operative Report 02/23/24 1145 MR#: [id number] Acct: [id number] Name: CHASITY PINO Rep #: [id number] : 1950 73 From: Myles Iraheta MD PCP: Dr. Eben Vo MD [place] [facility] Location: [place] [address] Operative Report (Standard) Operative Information Date of Procedure: 02/23/24 Pre-Operative Diagnosis: Right knee primary osteoarthritis Post-Operative Diagnosis: Right knee primary osteoarthritis Surgery/Procedure Performed: Right minimally invasive robotic assisted total knee replacement heavy equipment sales manager: Yes Crop Consultant: Bin Pittman Tasks completed by chemical laboratory assistant: Other (See operative report) Additional assistant professor of business?: No Type of Anesthesia: Spinal RN Documented Start/Stop Times: Operation Date: 02/23/24 10:00 Case Time Into Pre-Op 02/23/24 08:12 Anesthesia Start 02/23/24 09:59 Into Room 02/23/24 09:59 Procedure Start 02/23/24 10:55 Procedure Start Time: 10:55 Procedure Stop Time: 12:18 Select all DRAINS/GRAFTS/IMPLANTS that apply: Prosthetic device Prosthetic device details: See operative report Special Medications: Ancef Estimated Blood Loss: 200 mL Fluids Replaced: 2000 mL crystalloid Specimen collected: Yes Description of specimen(s) removed: Bony cuts Description of surgery: Implants used: 1. [place] size 6 triathlon cruciate retaining distal femoral press-fit component 2. Cee size 7 press-fit tritanium tibial baseplate 3. Cee X3 10 mm CS polyethylene 4. [place] X3 38 mm asymmetric patella Brief history operative indications: 73-year-old m with history of right knee osteoarthritis with radiographic findings with loss of joint space, osteophyte formation and subchondral sclerosis. Failed conservative measures as mentioned in the H P. Discussion of total knee arthroplasty as well as risk and benefits were discussed the patient including but not limited to blood loss, DVTs, PEs, neurovascular damage, general risk of anesthesia including loss of life, and stiffness or instability were discussed with patient. Patient demonstrated understanding and was able to sign informed consent. Procedure: On the date of procedure patient's right lower extremity was marked in the preoperative area. The patient was then taken back to the operating room where the patient was placed on the table in the supine position. All bony prominences were identified a well-padded. Anesthesia assumed control of the C-spine and airway and remained controlled throughout the remainder of the procedure. A tourniquet was placed on the right upper thigh and the leg was prepped in a sterile fashion. The surgeon then scrubbed at this time .Upon reentering the room right lower extremity was draped in a standard orthopedic fashion. A timeout was then called and everyone agreed upon the side, the site, the procedure to be performed, patient's identity and antibiotics given. Esmarch bandage was used to exsanguinate the extremity and the tourniquet was placed up to 250 mmHg with the knee in flexion. A midline skin incision was made and sharp dissection was taken down through skin subcutaneous tissue and fat. The standard medial parapatellar incision was made and the patella was subluxed laterally. An Appropriate deep MCL release was done and the fat pad was resected. Our attention was then directed to the patella. The patella was everted and a flat resection was made. The knee was then flexed up in 2 femoral pins were placed inside the incision and 2 tibial pins were placed outside the incision in the medial tibia bicortically. Once this was completed the 2 checkpoints in the femur and tibia were placed. Knee was then flexed up and the bony landmarks were registered. Once this was completed knee was taken through range of motion and manually stressed allowing us to a plan for an appropriate tibial cut. The robotic arm was brought into the field sterilely and checkpoint and saw were registered. Based on the patient's deformity the tibial cut was made and 0.5 degrees varus. At this time the tensioner was then placed in the joint and ligament tension was checked at 90 degrees and full extension. Based on the patient's ligamentous tension appropriate adjustments were made to the operative plan and ligament releases were done. Once we were happy with our operative plan with balanced flexion and extension gaps our attention was directed to the femur. The robot was brought into the field sterilely and registered. Post erior condylar cuts, anterior chamfer cuts and anterior cuts were appropriately made for a size 6 femur. When these were completed the saws were switched out in the distal femoral and posterior chamfer cuts were made. Protecting the soft tissue throughout this time. A size 7 tibial base plate was selected. the knee was f (more content not included)... [facility] VISUAL FIELD 24-2 OU (BOTH E YES)on 02-20-2024 [facility] Radiology Study observation (narrative) [facility] FUNDUS PHOTOS OU (BOTH EYES) on 02-09-2024 [facility] Radiology Study observation (narrative) [facility] OCT OPTIC NERVE CIRRUS OU (B OTH EYES)on 02-09-2024 [facility] Radiology Study observation (narrative) [facility] MR/PAT.Jostin 01-30-2024 MR/PAT.[facility] Medical Records Department [address] [place] [address] PAT - Anesthesia 01/30/24 0855 MR#: [id number] Acct: [id number] Name: CHASITY PINO Rep #: [id number] : 1950 73 From: Kasi Parehk MD PCP: Dr. 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 When Was Last Pacemaker Check QUESTION #4 FULL TEXT: You/Your Family Experience fever (hyperthermia) with Anesthesia Last Oral Intake Last Oral intake: Last Oral Intake NPO since Meds taken in AM with sips of water? Meds patient instructed to take am of surgery PONV PONV - insulation worker interior surface: PONV - insulation worker interior surface Female No 01/27/24 10:21 HX of Motion Sickness No 01/27/24 10:21 HX of N/V After Surgery No 01/27/24 10:21 Non-Smoker Yes 01/27/24 10:21 Duration of Surgery greater Yes 01/27/24 10:21 than 60 minutes Number of Risk Factors 2 01/27/24 10:21 PONV Score Moderate Risk 01/27/24 10:21 Height Weight Height Weight: Anesthesia: Height Weight Height 5 ft 8 in 11/20/23 09:42 Respiratory Assessment Respiratory Assessment - insulation worker interior surface: Respiratory Tract Infection Hx - insulation worker interior surface Hx Respiratory Tract Infection No 01/27/24 10:21 STOP Sleep Apnea STOP Sleep Apnea - insulation worker interior surface: STOP Sleep Apnea - insulation worker interior surface Hx Hypertension Yes: CONTROLLED WITH MED 01/27/24 10:21 Hx Sleep Apnea No 01/27/24 10:21 CPAP No 01/27/24 10:21 BIPAP No 01/27/24 10:21 Do you snore loudly (louder No 01/27/24 10:21 than talking or can be heard Do you often feel tired/ No 01/27/24 10:21 fatigued/ sleepy during daytime? Has anyone observed you stop No 01/27/24 10:21 breathing during sleep? STOP Results Negative 01/27/24 10:21 QUESTION #5 FULL TEXT : Do you snore loudly (louder than talking or can be heard through closed doors)? 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 Specify any problems Hx of Preganancy in last 3 N/A 01/27/24 10:21 Months Nurse Filling Out Transfusion NBUCHER 01/27/24 10:21 Questions: Date: 01/27/24 01/27/24 10:21 Time: 10:22 01/27/24 10:21 Patient unable to answer at this time (ie. confused, unrespo /Reproduction History /Reproductive History - insulation worker interior surface: /Reproductive Hx- insulation worker interior surface Hx Now No 01/27/24 10:21 Gestational Age (in weeks): EDC: Hx Hx Para Hx Section SAB No 01/27/24 10:21 [facility] Medical History (Updated 01/27/24 @ 10:29 by Kandi Mack) Wears glasses BPH (benign prostatic hyperplasia) Prostate disease High cholesterol Small intestinal bacterial overgrowth (SIBO) Leg cramps Non-smoker History of Holter monitoring History of echocardiogram Cardiology follow-up encounter Urinary frequency Smokeless tobacco use History of cardioversion Non-ST elevated myocardial infarction Nonischemic cardiomyopathy Bone spur of right foot Coronary artery calcification Essential hypertension Paroxysmal atrial fibrillation senior care (current) use of anticoagulants Hyperlipidemia Abnormal EKG Premature ventricular contractions Arthritis New onset atrial fibrillation Home Medications ???Medication ???Instructions ???Recorded ???Last Taken ???Type tamsulosin 0.4 mg capsule (Flomax) 0.4 mg PO DAILY urine 07/30/21 (more content not included)... [facility] MRSA/SAID NASAL SCREENon MRSA+SAID SCRN Reason for Exam: Elvira christina MRSA MRSA Negative S. AUREUS S. aureus Negative Normal [facility] Comment on above: Performed By: #### L 100.0100, L501.1800, M100.651, L500.2500 ####[facility] [address] [facility] [place], [address] 12 Lead EKGon 01-29-2024 12 Lead EKG [facility] Cardiovascular Services [address] [place] [address] 12 Lead EKG 01/29/24 1242 MR#: [id number] Acct: [id number] Name: CHASITY PINO Rep #: [id number] : 1950 73 From: Alfonso Blackwood MD Attending Dr: Dr. Myles Iraheta MD Status: PRE [facility] Order[place] Dr: Myles Iraheta MD Date: 01/29/24 [place] [facility] Sex: M C Admitted: Test Reason : PREOP Blood Pressure : */* mmHG Vent. Rate : 49 BPM Atrial Rate : 49 BPM P-R Int : 170 ms QRS Dur : 84 ms QT Int : 498 ms P-R-T Axes : 30 119 -13 degrees QTcB Int : 449 ms Likely Junctional Rhythm Right axis deviation Septal infarct , age undetermined Abnormal ECG Confirmed by JULIENNE QUACH, TORI ([id number]), brands editor CAMDEN SMITH ([id number]) on 02/04/2024 1:57:07 PM Referred By: Myles Iraheta Confirmed By: TORI BLACKWOOD MD 02/04/24 1588 Date Alfonso Blackwood MD CC: Dr. Eben Vo MD; Dr. Myles Iraheta MD Signed Normal [facility] Absolute neutrophil countOrd ered By: Myles Iraheta on 01-29-2024 Neutrophils (Bld) [#/Vol] 3.6 10*3/uL 2.0-7.7 [facility] Albumin, Serumon 01-29-2024 Albumin [Mass/Vol] 3.6 g/dL Normal 3.2-5.[address] [facility] Comment on above: Performed By: #### L 100.0100, L501.1800, M100.651, L500.2500 ####[facility] [address] [place], [address] Basic Metabolic Profile (BMP )on 01-29-2024 BUN/CRE 20.5 RATIO High 10-20 [facility] Comment on above: Performed By: #### L 100.0100, L501.1800, M100.651, L500.2500 ####[facility] [address] [place], [address] CA,Total 8.9 mg/dL Normal 8.5-10.1 [facility] Comment on above: Performed By: #### L 100.0100, L501.1800, M100.651, L500.2500 ####[facility] [address] [place], [address] Chloride [Moles/Vol] 104 mmol/L Normal 98-107 [facility] Comment on above: Performed By: #### L 100.0100, L501.1800, M100.651, L500.2500 ####[facility] [address] [place], [address] CO2 [Moles/Vol] 32.0 mmol/L Normal 21.0-32.0 [facility] Comment on above: Performed By: #### L 100.0100, L501.1800, M100.651, L500.2500 ####[facility] [address] [place], [address] Creatinine [Mass/Vol] 1.32 mg/dL High 0.70-1.30 [facility] Comment on above: Result Comment: The validity of the calculated GFR GFRAA in patients over 70 years has not been determined. Clinical correlation is essential. Performed By: #### L 100.0100, L501.1800, M100.651, L500.2500 ####[facility] [address] [place], [address] EST GFR - AA 68 mL/min Normal >60 [facility] Comment on above: Result Comment: Afri can Filipino GFR Calc Performed By: #### L 100.0100, L501.1800, M100.651, L500.2500 ####[facility] [address] [place], [address] GAP 3 Low 5-15 [facility] Comment on above: Performed By: #### L 100.0100, L501.1800, M100.651, L500.2500 ####[facility] [address] [place], [address] GFR/1.73 sq M.predicted among non-blacks MDRD (S/P/Bld) [Vol rate/Area] 57 mL/min/{1.73_m2} Low >60 [facility] Comment on above: Result Comment: Non- GFR Calc Performed By: #### L 100.0100, L501.1800, M100.651, L500.2500 ####[facility] [address] [place], [address] Glucose [Mass/Vol] 105 mg/dL Normal 74-[address] [facility] Comment on above: Result Comment: Fast ing Glucose result from 100 to 125 mg/dL suggests IMPAIRED HOMEOSTASIS per A.D.A. criteria. Performed By: #### L 100.0100, L501.1800, M100.651, L500.2500 ####[facility] [address] [place], [address] Potassium [Moles/Vol] 4.6 mmol/L Normal 3.5-5.1 [facility] Comment on above: Result Comment: Slig ht Hemolysis, Result may be falsely increased. Performed By: #### L 100.0100, L501.1800, M100.651, L500.2500 ####[facility] [address] [place], [address] Sodium [Moles/Vol] 139 mmol/L Normal 136-[address] [facility] Comment on above: Performed By: #### L 100.0100, L501.1800, M100.651, L500.2500 ####[facility] [address] [place], [address] Urea nitrogen [Mass/Vol] 27 mg/dL High 7-18 [facility] Comment on above: Performed By: #### L 100.0100, L501.1800, M100.651, L500.2500 ####[facility] [address] [place], [address] Basophil percentageOrdered B y: Myles Connie on 01-29-2024 Basophils/100 WBC (Bld) 1.0 % 0-1 [facility] CBC W/Diff, Automatedon 01-17 Absolute Lymph 1.13 X10 3/uL Normal 0.83-4.51 [facility] Comment on above: Performed By: #### L 100.0100, L501.1800, M100.651, L500.2500 ####[facility] [address] [place], [address] Absolute Neut 3.6 X10 3/uL Normal 2.0-7.7 [facility] Comment on above: Performed By: #### L 100.0100, L501.1800, M100.651, L500.2500 ####[facility] [address] [place], [address] Basophils/100 WBC (Bld) 1.0 % Normal 0-1 [facility] Comment on above: Performed By: #### L 100.0100, L501.1800, M100.651, L500.2500 ####[facility] [address] [place], [address] Eosinophils/100 WBC (Bld) 6.3 % High 0-5 [facility] Comment on above: Performed By: #### L 100.0100, L501.1800, M100.651, L500.2500 ####[facility] [address] [place], [address] Erythrocyte distribution width (RBC) [Ratio] 13.0 % Normal 11.6-14.6 [facility] Comment on above: Performed By: #### L 100.0100, L501.1800, M100.651, L500.2500 ####[facility] [address] [place], [address] Hematocrit (Bld) [Volume fraction] 46.4 % Normal 40-54 [facility] Comment on above: Performed By: #### L 100.0100, L501.1800, M100.651, L500.2500 ####[facility] [address] [place], [address] Hemoglobin (Bld) [Mass/Vol] 15.6 g/dL Normal 13.0-16.5 [facility] Comment on above: Performed By: #### L 100.0100, L501.1800, M100.651, L500.2500 ####[facility] [address] [place], [address] IG% 0.200 Normal 0.0-0.9 [facility] Comment on above: Result Comment: IG% - Immature Granulocytes (promyelocytes, myelocytes and metamyelocytes) > 1% indicates that a LEFT SHIFT is Present. Performed By: #### L 100.0100, L501.1800, M100.651, L500.2500 ####[facility] [address] [place], [address] Lymphocytes/100 WBC (Bld) 18.7 % Low 19-41 [facility] Comment on above: Performed By: #### L 100.0100, L501.1800, M100.651, L500.2500 ####[facility] [address] [place], [address] MCH (RBC) [Entitic mass] 32.8 pg High 27.0-32.0 [facility] Comment on above: Performed By: #### L 100.0100, L501.1800, M100.651, L500.2500 ####[facility] [address] [place], [address] MCHC (RBC) [Mass/Vol] 33.6 g/dL Normal 32-36 [facility] Comment on above: Performed By: #### L 100.0100, L501.1800, M100.651, L500.2500 ####[facility] [address] [place], [address] MCV (RBC) [Entitic vol] 97.7 fL High 80-94 [facility] Comment on above: Performed By: #### L 100.0100, L501.1800, M100.651, L500.2500 ####[facility] [address] [place], [address] Monocytes/100 WBC (Bld) 14.6 % High 0-10 [facility] Comment on above: Performed By: #### L 100.0100, L501.1800, M100.651, L500.2500 ####[facility] [address] [place], [address] Neutrophils/100 WBC (Bld) 59.2 % Normal 47-70 [facility] Comment on above: Performed By: #### L 100.0100, L501.1800, M100.651, L500.2500 ####[facility] [address] [place], [address] Nucleated RBC (Bld) [#/Vol] 0 10*3/uL Normal 0-5 [facility] Comment on above: Performed By: #### L 100.0100, L501.1800, M100.651, L500.2500 ####[facility] [address] [place], [address] Platelet mean volume (Bld) [Entitic vol] 9.8 fL Normal 6.2-12.0 [facility] Comment on above: Performed By: #### L 100.0100, L501.1800, M100.651, L500.2500 ####[facility] [address] [place], [address] Platelets (Bld) [#/Vol] 197 10*3/uL Normal 150-450 [facility] Comment on above: Performed By: #### L 100.0100, L501.1800, M100.651, L500.2500 ####[facility] [address] [place], [address] RBC (Bld) [#/Vol] 4.75 10*6/uL Normal 4.6-6.2 [facility] Comment on above: Performed By: #### L 100.0100, L501.1800, M100.651, L500.2500 ####[facility] [address] [place], [address] RDW SD 46.9 fl High 35.1-43.9 [facility] Comment on above: Performed By: #### L 100.0100, L501.1800, M100.651, L500.2500 ####[facility] [address] [place], [address] WBC (Bld) [#/Vol] 6.0 10*3/uL Normal 4.4-11.[address] [facility] Comment on above: Performed By: #### L 100.0100, L501.1800, M100.651, L500.2500 ####[facility] [address] [place], [address] Eosinophil percentageOrdered By: Myles Iraheta on 01-29-2024 Eosinophils/100 WBC (Bld) 6.3 % High 0-5 [facility] Extremity Lower without Cont raon 01-29-2024 Extremity Lower without Contra [facility] Imaging Services [address] [place], [place] [id number] Extremity Lower without Contra MR#: [id number] Acct: [id number] Name: CHASITY PINO Rep #: [id number] : 1950 M 73 From: Tommy Pinto MD PCP: Dr. Eben Vo MD Status: REG CLI Study: Extremity Lower without Contra Date of Exam: 03/31/23 Exam# [id number] Ordering Dr: Myles Iraheta MD [id number] CT RIGHT LOWER EXTREMITY WITH 3-D IMAGING CLINICAL INDICATION: PRE OP TECHNIQUE: Axial CT images of the right lower extremity (including right hip, right knee, and right ankle) was performed without IV contrast material. Coronal and sagittal reformats were provided. The protocol utilizes one or more of the following dose reduction techniques: automated exposure control, adjustment of mA and/or kV according to patient size, and/or use of iterative reconstruction technique. RADIATION DOSAGE (If Supplied By Facility): CTDIvol = ( 19.77 ) mGy, DLP = ( 1287.02 ) mGycm COMPARISON: No relevant prior comparison study available. FINDINGS: Bones: There is moderate degenerative arthrosis of the right hip joint with joint space narrowing, marginal osteophyte formation, and subchondral cyst formation in the superolateral aspect of the right acetabulum. There is moderate tricompartment degenerative arthrosis of the right knee joint with joint space narrowing and marginal osteophyte formation. There is chondrocalcinosis of the medial and lateral menisci. Osseous structures are intact without evidence of fracture or dislocation. There is mild degenerative arthrosis of the tibiotalar and talonavicular joints of the right ankle. No lytic or blastic osseous masses. Soft Tissues: There is a moderate right knee joint effusion. There are atherosclerotic calcifications. The deep soft tissue structures are unremarkable. The superficial soft tissues are unremarkable without evidence of edema, hematoma, or foreign body. CT/Extremity Lower without Contra IMPRESSION: Moderate tricompartment degenerative arthrosis of the right knee. Chondrocalcinosis of the medial and lateral menisci. Moderate right knee joint effusion. Electronically Signed: Tommy Pinto MD at 14:31 EST , CC: Dr. Eben Vo MD; Dr. Myles Iraheta MD Director Of Collections And Archives: Signed Normal [facility] Immature granulocytes/100 WB C Auto (Bld)Ordered By: Myles Iraheta on 01-29-2024 Immature granulocytes/100 WBC (Bld) 0.200 % 0.0-0.9 [facility] Comment on above: IG% - Immature Granu locytes (promyelocytes, myelocytes and metamyelocytes) > 1% indicates that a LEFT SHIFT is Present. Lymphocytes Auto (Unsp spec) [#/Vol]Ordered By: Myles Iraheta on 01-29-2024 Lymphocytes (Bld) [#/Vol] 1.13 10*3/uL 0.83-4.51 [facility] Lymphocytes/100 WBC Auto (Un sp spec)Ordered By: Myles Iraheta on 01-29-2024 Lymphocytes/100 WBC (Bld) 18.7 % Low 19-41 [facility] MRSA screenOrdered By: Andres Iraheta on 01-29-2024 Nasal Screen MRSA/MSSA [facility] Magnesiumon 01-29-2024 Magnesium [Mass/Vol] 2.3 mg/dL Normal 1.6-2.6 [facility] Comment on above: Result Comment: Slig ht Hemolysis, Result may be falsely increased. Performed By: #### L 211.2385, L501.5200 ####[facility] [address] [place], [address] Magnesium measurementOrdered By: Lucho Webber on 01-29-2024 Magnesium [Mass/Vol] 2.3 mg/dL 1.6-2.6 [facility] Comment on above: Slight Hemolysis, Re sult may be falsely increased. Monocyte percentageOrdered B y: Myles Iraheta on 01-29-2024 Monocytes/100 WBC (Bld) 14.6 % High 0-10 [facility] Neutrophil percentageOrdered By: Myles Iraheta on 01-29-2024 Neutrophils/100 WBC (Bld) 59.2 % 47-70 [facility] Nucleated red blood cell per centageOrdered By: Myles Iraheta on 01-29-2024 Nucleated RBC/100 WBC (Bld) [Ratio] 0 % 0-5 [facility] Serum or plasma albumin rufino urement (mass/volume)Ordered By: Myles Iraheta on 01-29-2024 Albumin [Mass/Vol] 3.6 g/dL 3.2-5.[address] [facility] TSH QnOrdered By: Lucho ferreira on 01-29-2024 Thyroid Stimulating Hormone (TSH) 4.150 uIU/mL High 0.358-3.74 0 [facility] Thyroid Stim Hormone (TSH)on 01-29-2024 TSH 4.150 uIU/mL High 0.358-3.74 0 [facility] Comment on above: Performed By: #### L 501.9520, L501.5200 ####[facility] [address] [place], [place], [address] Thyrotropinon 12-16-2023 TSH Qn 5.36 m[IU]/L High 0.44-3.98 [facility] Comment on above: Order Comment: TSH t esting is performed using different testing methodology at [facility] than at other [facility]. Direct result comparisons should only be made within the same method. Performed By: #### 3 016-3 #### EFREN MEJIAS ([id number]) [facility] ([facility]) [address] [place] [address] 12 Lead EKG performed by [facility] on 11-20-2023 12 Lead EKG performed by [facility] [address] [place] [address] 12 Lead EKG performed by [facility] 11/20/23 1004 MR#: [id number] Acct: [id number] Name: CHASITY PINO Rep #: [id number] : 1950 73 From: Louie Brown MD Attending Dr: Dr. Louie Brown MD Status: DEP Darren GARCIA Ordering Dr: Louie Brown MD Date: 11/20/23 Location: [facility] Sex: M C Admitted: [facility]/12 Lead EKG performed by [facility] ECG Report Interpretation M arked sinus Bradycardia Low voltage in limb leads. -Old anterior infarct. - Nonspecific T-abnormality. ABNORMAL Electronically signed on 11/25/2023 at 09:58 by Louie Brownwood Software Version 8610 11/25/231002 Date Louie Brown MD CC: Dr. Eben Vo MD Date Dictated: 11/20/231003 Date Transcribed: 11/20/231003 Director Of Collections And Archives: [place] Signed Normal [facility] Cardiology Visit Reporton Cardiology Visit Report [facility] [address] [place] [address] OFFICE VISIT Date of Service: 11/20/23 MR#: [id number] Acct: [id number] Name: CHASITY PINO Rep #: [id number] : 1950 Provider: Dr. Louie Brown MD Age/Sex: 73/M Location: [facility] Status: Signed HPI HPI History of Present Illness Details: This is a 73-year-old white male who presents today for outpatient cardiovascular follow-up visit. He has a history of paroxysmal atrial fibrillation superimposed upon a history of hyperlipidemia and hypertension. His most recent Holter monitor from 08/21/2021 demonstrated atrial fibrillation/flutter 100% of the time. His minimum heart rate was 53 bpm, maximum heart rate 188 bpm, and average heart rate 107 bpm with the longest R to R interval of 1.8 seconds. He was placed on Digoxin 250mcg. At his previous office visits, this had been decreased to 125mcg due to bradycardia. Patient presented to the emergency room on 12/03/2022 with complaints of chest pain that radiated to his neck and shortness of breath. In the emergency room his EKG demonstrated atrial fibrillation with a rate of 72 bpm with an old septal infarct. His troponin was noted to be elevated and he was admitted for non-ST elevation TX. He did undergo a cardiac catheterization on 12/04/2022 which demonstrated normal coronary arteries, and dilated cardiomyopathy with an ejection fraction of about 18%. He was discharged from the hospital on amiodarone 200 mg daily and instructed to follow-up with cardiology for future cardioversion. He underwent cardioversion on 01/07/2023. His echocardiogram from 02/27/2023 demonstrated an improved ejection fraction of 40%. He did have a repeat echocardiogram in May of this year and it demonstrated improvement with his estimated ejection fraction at 50%. An EKG done today demonstrated sinus bradycardia with a rate of 38. He tells me that he has had his TSH checked through your office and Synthroid has been added to his regimen. From a cardiac standpoint, the patient is doing well. He denies any palpitations, chest pain, pressure or heaviness. He denies SOB, Orthopnea, and PND. He does not have bleeding issues; no blood in urine, stool or nosebleeds. He denies any decrease in energy level, myalgias, or claudication. He does not have edema, or sudden weight gain. He does have occasional lightheadedness. He denies dizziness, syncopal or near syncopal episodes, and headaches. Intake Vital Signs 05/27/23 09:09 11/20/23 09:42 Height 5 ft 8 in 5 ft 8 in Weight: 162 lb 157 lb BMI 24.6 23.8 BP 93/51 L 103/62 Blood Pressure Location Lt brachial Lt brachial Position Sitting Sitting Respiration 16 16 Pulse 42 L 44 L Pulse Source Monitor Monitor Intake Visit Reasons: 6 m fu w HOOK UP per HOOK UP Copy Cutter Required: No Accompanied by: Is patient in pain?: No Allergies Sulfa (Sulfonamide Antibiotics) Allergy (Verified 11/20/23 09:45) sores in mouth sulfamethoxazole (From Bactrim) Allergy (Verified 11/20/23 09:45) Sores in mouth Medications ???Medication ???Instructions ???Recorded ???Confirmed ???Type tamsulosin 0.4 mg capsule (Flomax) 0.4 mg PO DAILY urine 07/30/21 11/20/23 History omeprazole magnesium 20 mg 20 mg PO DAILY stomach 11/06/22 11/20/23 History tablet,delayed release (Prilosec OTC) rivaroxaban 20 mg tablet (Xarelto) 20 mg PO DAILY blood thinner #90 11/27/22 11/20/23 Rx tabs dapagliflozin propanediol 10 mg 10 mg PO DAILY #90 tabs 04/30/23 11/20/23 Rx tablet (Farxiga) amiodarone 100 mg tablet 100 mg PO DAILY #90 tabs 05/27/23 11/20/23 Rx spironolactone 25 mg tablet 25 mg PO DAILY #90 tabs 05/27/23 11/20/23 Rx carvedilol 6.25 mg tablet 6.25 mg PO BID #60 tabs 11/20/23 11/20/23 Rx lactobacillus combination no.9 4 4,000 mmu cells PO QDAY 11/20/23 11/20/23 History billion cell capsule (Adult 50 Plus Probiotic) levothyroxine 50 mcg tablet 50 mcg PO QDAY 11/20/23 11/20/23 History Have you fallen in the past year?: Yes PFSH Medical History Urinary frequency Smokeless tobacco use History of cardioversion Non-ST elevated myocardial infarction Nonischemic cardiomyopathy Bone spur of right foot Coronary artery calcification Essential hypertension Paroxysmal atrial fibrillation senior care (current) use of anticoagulants Hyperlipidemia Abnormal EKG Premature ventricular contractions Arthritis New onset atrial fibrillation Surgical History History of bilateral cataract extraction History of left heart catheterization (04/21/18) Finger laceration (02/27/18) History of foot fracture History of tonsillectomy and adenoidectomy History of arthroscopic knee surgery His (more content not included)... Normal [facility] Echo Completeon 11-19-2023 Echo Complete [facility] [address] [place] [address] Echo Complete 11/19/23 0900 MR#: [id number] Acct: [id number] Name: CHASITY PINO Rep #: [id number] : 1950 73 From: Louie Brown MD Attending Dr: Dr. Louie Brown MD Status: JOSIAH RODRIGUEZ Ordering Dr: Louie Brown MD Date: 11/19/23 Location[place] [facility] Sex: M C Admitted: Reason For Study: DILATED CARDIOMYOPATHY Procedure This was a 2D Doppler, Color Flow transthoracic echocardiogram. Exam performed in department. Left Ventricle Normal LV size. Moderate concentric left ventricular hypertrophy. Left ventricular systolic function is normal. The estimated ejection fraction is 60 %. Stage 2 diastolic dysfunction. No regional wall motion abnormalities noted. Right Ventricle Normal RV size. Normal systolic function. Atria Normal left atrium. Normal right atrium. Mitral Valve Normal mitral valve. Tricuspid Valve Normal tricuspid valve. Mild (1+) tricuspid valve insufficiency. Pulmonary artery systolic pressure is 34 mmHg. Aortic Valve Trisinus/trileaflet aortic valve. Pulmonic Valve Normal pulmonic valve. Great Vessels Normal aortic root. The pulmonary artery is normal size. Normal inferior vena cava. Pericardium/Pleural No pericardial effusion. MMode/2D Measurements Calculations LVIDd: 4.6 cm IVSd: 1.5 cm Ao root diam: 3.4 cm LVIDs: 3.3 cm LVPWd: 1.4 cm RVDd: 4.3 cm FS: 27.8 % LAV(MOD-bp): 56.6 ml LVAd ap4: 35.3 cm2 SV(MOD-sp4): 70.4 ml LAV(MOD-bp) Indexed: 31.3 ml/m2 LVLd ap4: 8.3 cm LAV(MOD-sp2): 54.5 ml EDV(MOD-sp4): 120.8 ml LAV(MOD-sp4): 58.7 ml EDV(sp4-el): 126.7 ml LVAs ap4: 20.9 cm2 LVLs ap4: 7.3 cm ESV(MOD-sp4): 50.4 ml ESV(sp4-el): 51.2 ml EF(MOD-sp4): 58.3 % EF(sp4-el): 59.6 % SV(sp4-el): 75.5 ml LA A4 area: 19.8 cm2 LA dimension(2D): 4.0 cm RA A4 area: 19.0 cm2 TAPSE: 2.0 cm Time Measurements MV dec time: 0.29 sec Doppler Measurements Calculations MV E max michele: 57.2 cm/sec Lat Peak E' Michele: 9.5 cm/sec Med Peak E' Michele: 5.6 cm/sec MV A max michele: 35.5 cm/sec E/E' lat: 6.0 E/E' med: 10.1 MV E/A: 1.6 Ao V2 max: 96.7 cm/sec LV V1 max: 72.1 cm/sec PA V2 max: 82.9 cm/sec Ao max P.7 mmHg LV V1 max P.1 mmHg TR max michele: 277.5 cm/sec TR max P.8 mmHg ECHO/Echo Complete Interpretation Summary Normal LV size. Left ventricular systolic function is normal. The estimated ejection fraction is 60 %. Moderate concentric left ventricular hypertrophy. Stage 2 diastolic dysfunction. Structurally normal valves. Compared to previous study, the left ventricular systolic function has improved.. Ordering Physician: Louie Brown Referring Physician: EBEN VO Performed By: Karina Wilde RDCS 11/19/237 Date Louie Brown MD CC: Dr. Louie Brown MD; Dr. Eben Vo MD Date Dictated: 11/19/23899 Date Transcribed: 11/19/231614 Director Of Collections And Archives: Signed [facility] CBC panel Auto (Bld)on 09-15 Erythrocyte distribution width (RBC) [Ratio] 13.8 % Normal 11.5-14.5 [facility] Comment on above: Performed By: #### 5 8410-2 #### EFREN MEJIAS ([id number]) [facility] ([facility]) [address] [place] [address] 96056 Hematocrit (Bld) [Volume fraction] 45.4 % Normal 41.0-52.0 [facility] Comment on above: Performed By: #### 5 8410-2 #### EFREN MEJIAS ([id number]) [facility] ([facility]) [address] [place] [address] 94308 Hemoglobin (Bld) [Mass/Vol] 14.6 g/dL Normal 13.5-17.5 [facility] Comment on above: Performed By: #### 5 8410-2 #### EFREN MEJIAS ([id number]) [facility] ([facility]) [address] [place] [address] 46044 MCH (RBC) [Entitic mass] 31.7 pg Normal 26.0-34.0 [facility] Comment on above: Performed By: #### 5 8410-2 #### EFREN MEJIAS ([id number]) [facility] ([facility]) [address] [place] [address] 08996 MCHC (RBC) [Mass/Vol] 32.2 g/dL Normal 32.0-36.0 [facility] Comment on above: Performed By: #### 5 8410-2 #### EFREN MEJIAS ([id number]) [facility] ([facility]) [address] [place] [address] 86179 MCV (RBC) [Entitic vol] 99 fL Normal 80-100 [facility] Comment on above: Performed By: #### 5 8410-2 #### EFREN MEJIAS ([id number]) [facility] ([facility]) [address] [place] [address] 64676 Nucleated RBC/100 WBC (Bld) [Ratio] 0.0 /100 WBCs Normal 0.0-0.0 [facility] Comment on above: Performed By: #### 5 8410-2 #### EFREN MEJIAS ([id number]) [facility] ([facility]) [address] [place] [address] 95367 Platelets (Bld) [#/Vol] 203 x10*3/uL Normal 150-450 [facility] Comment on above: Performed By: #### 5 8410-2 #### EFREN MEJIAS ([id number]) [facility] ([facility]) [address] [place] [address] 01758 RBC (Bld) [#/Vol] 4.60 x10*6/uL Normal 4.50-5.90 [facility] Comment on above: Performed By: #### 5 8410-2 #### EFREN MEJIAS ([id number]) [facility] ([facility]) [address] [place] [address] WBC (Bld) [#/Vol] 6.0 x10*3/uL Normal 4.4-11.3 [facility] Comment on above: Performed By: #### 5 8410-2 #### EFREN MEJIAS ([id number]) [facility] ([facility]) [address] [place] [address] Comprehensive metabolic 2000 panelon 09-16-2023 Albumin BCP dye [Mass/Vol] 3.9 g/dL Normal 3.4-5.0 [facility] Comment on above: Performed By: #### 2 4323-8 #### EFREN MEJIAS ([id number]) [facility] ([facility]) [address] [place], [place] [id number] ALP [Catalytic activity/Vol] 57 U/L Normal 33-136 [facility] Comment on above: Performed By: #### 2 4323-8 #### EFREN MEJIAS ([id number]) [facility] ([facility]) [address] [place] [address] 29652 ALT With P-5'-P [Catalytic activity/Vol] 23 U/L Normal 10-52 [facility] Comment on above: Result Comment: Sarina ents treated with Sulfasalazine may generate falsely decreased results for ALT. Performed By: #### 2 4323-8 #### EFREN MEJIAS ([id number]) [facility] ([facility]) [address] [place] [address] Anion gap [Moles/Vol] 10 mmol/L Normal 10-20 [facility] Comment on above: Performed By: #### 2 432-8 #### EFREN MEJIAS ([id number]) [facility] ([facility]) [address] [place] [address] AST With P-5'-P [Catalytic activity/Vol] 23 U/L Normal 9-39 [facility] Comment on above: Performed By: #### 2 4322-8 #### EFREN MEJIAS ([id number]) [facility] ([facility]) [address] [place] [address] Bilirubin [Mass/Vol] 0.6 mg/dL Normal 0.0-1.2 [facility] Comment on above: Performed By: #### 2 4322-8 #### EFREN MEJIAS ([id number]) [facility] ([facility]) [address] [place] [address] Calcium [Mass/Vol] 8.7 mg/dL Normal 8.6-10.3 [facility] Comment on above: Performed By: #### 2 4322-8 #### EFREN MEJIAS ([id number]) [facility] ([facility]) [address] [place] [address] Chloride [Moles/Vol] 101 mmol/L Normal 98-107 [facility] Comment on above: Performed By: #### 2 4322-8 #### EFREN MEJIAS ([id number]) [facility] ([facility]) [address] [place] [address] CO2 [Moles/Vol] 32 mmol/L Normal 21-32 [facility] Comment on above: Performed By: #### 2 432-8 #### EFREN MEJIAS ([id number]) [facility] ([facility]) [address] [place] [address] Creatinine [Mass/Vol] 1.24 mg/dL Normal 0.50-1.30 [facility] Comment on above: Performed By: #### 2 4323-8 #### EFREN MEJIAS ([id number]) [facility] ([facility]) [facility] [place] [address] Glomerular filtration rate/1.73 sq M.predicted 62 mL/min/1.73m*2 Normal >60 [facility] Comment on above: Result Comment: Calc ulations of estimated GFR are performed using the 2020 CKD-EPI Study Refit equation without the race variable for the IDMS-Traceable creatinine methods. https://jasn.asnjournals.org/content/early/ASN.622609 0824 Performed By: #### 2 432-8 #### EFREN MEJIAS ([id number]) [facility] ([facility]) [address] [place] [address] 79322 Glucose [Mass/Vol] 85 mg/dL Normal 74-99 [facility] Comment on above: Performed By: #### 2 432-8 #### EFREN MEJIAS ([id number]) [facility] ([facility]) [address] [place] [address] 99413 Potassium [Moles/Vol] 4.5 mmol/L Normal 3.5-5.3 [facility] Comment on above: Performed By: #### 2 432-8 #### EFREN MEJIAS ([id number]) [facility] ([facility]) [address] [place] [address] 38653 Protein [Mass/Vol] 6.2 g/dL Low 6.4-8.2 [facility] Comment on above: Performed By: #### 2 4323-8 #### EFREN MEJIAS ([id number]) [facility] ([facility]) [address] [place] [address] 17573 Sodium [Moles/Vol] 138 mmol/L Normal 136-145 [facility] Comment on above: Performed By: #### 2 4323-8 #### EFREN MEJIAS ([id number]) [facility] ([facility]) [address] [place] [address] 88922 Urea nitrogen [Mass/Vol] 23 mg/dL Normal 6-23 [facility] Comment on above: Performed By: #### 2 4323-8 #### EFREN MEJIAS ([id number]) [facility] ([facility]) [address] [place] [address] 66960 Thyrotropinon 09-16-2023 TSH Qn 9.22 m[IU]/L High 0.44-3.98 [facility] Comment on above: Order Comment: TSH t esting is performed using different testing methodology at [facility] than at other [facility]. Direct result comparisons should only be made within the same method. Performed By: #### 3 016-3 #### EFREN MEJIAS ([id number]) [facility] ([facility]) [address] [place], [place] [phone] XR CHEST 2 VIEWSon XR CHEST 2 VIEWS Interpreted By: Sammy Marks, STUDY: XR CHEST 2 VIEWS; 09/16/2023 10:33 am INDICATION: Signs/Symptoms:amiodarone. COMPARISON: 10/16/2027 ACCESSION NUMBER(S): [id number] ORDERING CLINICIAN: EBEN VO FINDINGS: CARDIOMEDIASTINAL SILHOUETTE: Cardiomediastinal silhouette is normal in size and configuration. LUNGS: Lungs are clear. No consolidation or effusion seen ABDOMEN: No remarkable upper abdominal findings. BONES: No acute osseous changes. IMPRESSION: 1. No evidence of acute cardiopulmonary process. MACRO: None Signed by: Sammy Chopra 09/17/2023 7:56 PM Dictation workstation: [id number] Normal [facility] Helicobacter pylori Agon H. pylori Ag IA Ql (Stl) Negative Normal Negative [facility] Comment on above: Result Comment: Perf ormed By: [employer]. [address] [place] [address] Hat Presser: Real Thomas MD, PhD CLIA Number: [id number] Performed By: #### 1 7780-8 #### [facility] ([facility]) ([id number]) [address] [place] [address] ALLERGEN, FOOD PROFILE IGEon 05-01-2023 Clam IgE Qn (S) 1.82 kU/L Invalid Interpretation Code <0.10 [facility] Comment on above: Order Comment: Inter pretation Scale <0.10 kU/L - Class 0 Allergen: ABSENT OR UNDETECTABLE ALLERGEN SPECIFIC IgE 0.10-0.34 kU/L - Class 0/1 Allergen: EQUIVOCAL LEVEL OF ALLERGEN SPECIFIC IgE 0.35-0.69 kU/L - Class 1 Allergen: LOW LEVEL OF ALLERGEN SPECIFIC IgE 0.70-3.49 kU/L - Class 2 Allergen: MODERATE LEVEL OF ALLERGEN SPECIFIC IgE 3.50-17.49 kU/L - Class 3 Allergen: HIGH LEVEL OF ALLERGEN SPECIFIC IgE 17.50-49.99 kU/L - Class 4 Allergen: VERY HIGH LEVEL OF ALLERGEN SPECIFIC IgE 50.00-100.00 kU/L - Class 5 Allergen: ULTRA HIGH LEVEL OF ALLERGEN SPECIFIC IgE >100.00 kU/L - Class 6 Allergen: EXTREMELY HIGH LEVEL OF ALLERGEN SPECIFIC IgE Performed By: #### I CPA3 #### PATRICIA Saha ([id number]) [facility] ([facility]) [address] [place] [address] Codfish IgE Qn (S) <0.10 Normal <0.10 [facility] Comment on above: Order Comment: Inter pretation Scale <0.10 kU/L - Class 0 Allergen: ABSENT OR UNDETECTABLE ALLERGEN SPECIFIC IgE 0.10-0.34 kU/L - Class 0/1 Allergen: EQUIVOCAL LEVEL OF ALLERGEN SPECIFIC IgE 0.35-0.69 kU/L - Class 1 Allergen: LOW LEVEL OF ALLERGEN SPECIFIC IgE 0.70-3.49 kU/L - Class 2 Allergen: MODERATE LEVEL OF ALLERGEN SPECIFIC IgE 3.50-17.49 kU/L - Class 3 Allergen: HIGH LEVEL OF ALLERGEN SPECIFIC IgE 17.50-49.99 kU/L - Class 4 Allergen: VERY HIGH LEVEL OF ALLERGEN SPECIFIC IgE 50.00-100.00 kU/L - Class 5 Allergen: ULTRA HIGH LEVEL OF ALLERGEN SPECIFIC IgE >100.00 kU/L - Class 6 Allergen: EXTREMELY HIGH LEVEL OF ALLERGEN SPECIFIC IgE Performed By: #### I CPA3 #### PATRICIA Saha ([id number]) [facility] ([facility]) [address] [place] [address] Star Tannery IgE Qn (S) <0.10 Normal [facility] Comment on above: Order Comment: Inter pretation Scale <0.10 kU/L - Class 0 Allergen: ABSENT OR UNDETECTABLE ALLERGEN SPECIFIC IgE 0.10-0.34 kU/L - Class 0/1 Allergen: EQUIVOCAL LEVEL OF ALLERGEN SPECIFIC IgE 0.35-0.69 kU/L - Class 1 Allergen: LOW LEVEL OF ALLERGEN SPECIFIC IgE 0.70-3.49 kU/L - Class 2 Allergen: MODERATE LEVEL OF ALLERGEN SPECIFIC IgE 3.50-17.49 kU/L - Class 3 Allergen: HIGH LEVEL OF ALLERGEN SPECIFIC IgE 17.50-49.99 kU/L - Class 4 Allergen: VERY HIGH LEVEL OF ALLERGEN SPECIFIC IgE 50.00-100.00 kU/L - Class 5 Allergen: ULTRA HIGH LEVEL OF ALLERGEN SPECIFIC IgE >100.00 kU/L - Class 6 Allergen: EXTREMELY HIGH LEVEL OF ALLERGEN SPECIFIC IgE Performed By: #### I CPA3 #### PATRICIA Saha ([id number]) [facility] ([facility]) [address] [place] [address] Egg white IgE Qn (S) <0.10 Normal <0.10 [facility] Comment on above: Order Comment: Inter pretation Scale <0.10 kU/L - Class 0 Allergen: ABSENT OR UNDETECTABLE ALLERGEN SPECIFIC IgE 0.10-0.34 kU/L - Class 0/1 Allergen: EQUIVOCAL LEVEL OF ALLERGEN SPECIFIC IgE 0.35-0.69 kU/L - Class 1 Allergen: LOW LEVEL OF ALLERGEN SPECIFIC IgE 0.70-3.49 kU/L - Class 2 Allergen: MODERATE LEVEL OF ALLERGEN SPECIFIC IgE 3.50-17.49 kU/L - Class 3 Allergen: HIGH LEVEL OF ALLERGEN SPECIFIC IgE 17.50-49.99 kU/L - Class 4 Allergen: VERY HIGH LEVEL OF ALLERGEN SPECIFIC IgE 50.00-100.00 kU/L - Class 5 Allergen: ULTRA HIGH LEVEL OF ALLERGEN SPECIFIC IgE >100.00 kU/L - Class 6 Allergen: EXTREMELY HIGH LEVEL OF ALLERGEN SPECIFIC IgE Performed By: #### I CPA3 #### PATRICIA Saha ([id number]) [facility] ([facility]) [address] [place] [address] Milk IgE Qn (S) <0.10 Normal <0.10 [facility] Comment on above: Order Comment: Inter pretation Scale <0.10 kU/L - Class 0 Allergen: ABSENT OR UNDETECTABLE ALLERGEN SPECIFIC IgE 0.10-0.34 kU/L - Class 0/1 Allergen: EQUIVOCAL LEVEL OF ALLERGEN SPECIFIC IgE 0.35-0.69 kU/L - Class 1 Allergen: LOW LEVEL OF ALLERGEN SPECIFIC IgE 0.70-3.49 kU/L - Class 2 Allergen: MODERATE LEVEL OF ALLERGEN SPECIFIC IgE 3.50-17.49 kU/L - Class 3 Allergen: HIGH LEVEL OF ALLERGEN SPECIFIC IgE 17.50-49.99 kU/L - Class 4 Allergen: VERY HIGH LEVEL OF ALLERGEN SPECIFIC IgE 50.00-100.00 kU/L - Class 5 Allergen: ULTRA HIGH LEVEL OF ALLERGEN SPECIFIC IgE >100.00 kU/L - Class 6 Allergen: EXTREMELY HIGH LEVEL OF ALLERGEN SPECIFIC IgE Performed By: #### I CPA3 #### PATRICIA Saha ([id number]) [facility] ([facility]) [address] [place] [address] Peanut IgE Qn (S) <0.10 Normal <0.10 [facility] Comment on above: Order Comment: Inter pretation Scale <0.10 kU/L - Class 0 Allergen: ABSENT OR UNDETECTABLE ALLERGEN SPECIFIC IgE 0.10-0.34 kU/L - Class 0/1 Allergen: EQUIVOCAL LEVEL OF ALLERGEN SPECIFIC IgE 0.35-0.69 kU/L - Class 1 Allergen: LOW LEVEL OF ALLERGEN SPECIFIC IgE 0.70-3.49 kU/L - Class 2 Allergen: MODERATE LEVEL OF ALLERGEN SPECIFIC IgE 3.50-17.49 kU/L - Class 3 Allergen: HIGH LEVEL OF ALLERGEN SPECIFIC IgE 17.50-49.99 kU/L - Class 4 Allergen: VERY HIGH LEVEL OF ALLERGEN SPECIFIC IgE 50.00-100.00 kU/L - Class 5 Allergen: ULTRA HIGH LEVEL OF ALLERGEN SPECIFIC IgE >100.00 kU/L - Class 6 Allergen: EXTREMELY HIGH LEVEL OF ALLERGEN SPECIFIC IgE Performed By: #### I CPA3 #### PATRICIA Saha ([id number]) [facility] ([facility]) [address] [place], [place] [id number] Scallop IgE Qn (S) 2.45 kU/L Invalid Interpretation Code <0.10 [facility] Comment on above: Order Comment: Inter pretation Scale <0.10 kU/L - Class 0 Allergen: ABSENT OR UNDETECTABLE ALLERGEN SPECIFIC IgE 0.10-0.34 kU/L - Class 0/1 Allergen: EQUIVOCAL LEVEL OF ALLERGEN SPECIFIC IgE 0.35-0.69 kU/L - Class 1 Allergen: LOW LEVEL OF ALLERGEN SPECIFIC IgE 0.70-3.49 kU/L - Class 2 Allergen: MODERATE LEVEL OF ALLERGEN SPECIFIC IgE 3.50-17.49 kU/L - Class 3 Allergen: HIGH LEVEL OF ALLERGEN SPECIFIC IgE 17.50-49.99 kU/L - Class 4 Allergen: VERY HIGH LEVEL OF ALLERGEN SPECIFIC IgE 50.00-100.00 kU/L - Class 5 Allergen: ULTRA HIGH LEVEL OF ALLERGEN SPECIFIC IgE >100.00 kU/L - Class 6 Allergen: EXTREMELY HIGH LEVEL OF ALLERGEN SPECIFIC IgE Performed By: #### I CPA3 #### PATRICIA Saha ([id number]) [facility] ([facility]) [address] [place] [address] Sesame Seed IgE Qn (S) <0.10 Normal <0.10 [facility] Comment on above: Order Comment: Inter pretation Scale <0.10 kU/L - Class 0 Allergen: ABSENT OR UNDETECTABLE ALLERGEN SPECIFIC IgE 0.10-0.34 kU/L - Class 0/1 Allergen: EQUIVOCAL LEVEL OF ALLERGEN SPECIFIC IgE 0.35-0.69 kU/L - Class 1 Allergen: LOW LEVEL OF ALLERGEN SPECIFIC IgE 0.70-3.49 kU/L - Class 2 Allergen: MODERATE LEVEL OF ALLERGEN SPECIFIC IgE 3.50-17.49 kU/L - Class 3 Allergen: HIGH LEVEL OF ALLERGEN SPECIFIC IgE 17.50-49.99 kU/L - Class 4 Allergen: VERY HIGH LEVEL OF ALLERGEN SPECIFIC IgE 50.00-100.00 kU/L - Class 5 Allergen: ULTRA HIGH LEVEL OF ALLERGEN SPECIFIC IgE >100.00 kU/L - Class 6 Allergen: EXTREMELY HIGH LEVEL OF ALLERGEN SPECIFIC IgE Performed By: #### I CPA3 #### PATRICIA Saha ([id number]) [facility] ([facility]) [address] [place] [address] Shrimp IgE Qn (S) 0.33 kU/L Invalid Interpretation Code <0.10 [facility] Comment on above: Order Comment: Inter pretation Scale <0.10 kU/L - Class 0 Allergen: ABSENT OR UNDETECTABLE ALLERGEN SPECIFIC IgE 0.10-0.34 kU/L - Class 0/1 Allergen: EQUIVOCAL LEVEL OF ALLERGEN SPECIFIC IgE 0.35-0.69 kU/L - Class 1 Allergen: LOW LEVEL OF ALLERGEN SPECIFIC IgE 0.70-3.49 kU/L - Class 2 Allergen: MODERATE LEVEL OF ALLERGEN SPECIFIC IgE 3.50-17.49 kU/L - Class 3 Allergen: HIGH LEVEL OF ALLERGEN SPECIFIC IgE 17.50-49.99 kU/L - Class 4 Allergen: VERY HIGH LEVEL OF ALLERGEN SPECIFIC IgE 50.00-100.00 kU/L - Class 5 Allergen: ULTRA HIGH LEVEL OF ALLERGEN SPECIFIC IgE >100.00 kU/L - Class 6 Allergen: EXTREMELY HIGH LEVEL OF ALLERGEN SPECIFIC IgE Performed By: #### I CPA3 #### PATRICIA Saah ([id number]) [facility] ([facility]) [address] [place] [address] Soybean IgE Qn (S) <0.10 Normal <0.10 [facility] Comment on above: Order Comment: Inter pretation Scale <0.10 kU/L - Class 0 Allergen: ABSENT OR UNDETECTABLE ALLERGEN SPECIFIC IgE 0.10-0.34 kU/L - Class 0/1 Allergen: EQUIVOCAL LEVEL OF ALLERGEN SPECIFIC IgE 0.35-0.69 kU/L - Class 1 Allergen: LOW LEVEL OF ALLERGEN SPECIFIC IgE 0.70-3.49 kU/L - Class 2 Allergen: MODERATE LEVEL OF ALLERGEN SPECIFIC IgE 3.50-17.49 kU/L - Class 3 Allergen: HIGH LEVEL OF ALLERGEN SPECIFIC IgE 17.50-49.99 kU/L - Class 4 Allergen: VERY HIGH LEVEL OF ALLERGEN SPECIFIC IgE 50.00-100.00 kU/L - Class 5 Allergen: ULTRA HIGH LEVEL OF ALLERGEN SPECIFIC IgE >100.00 kU/L - Class 6 Allergen: EXTREMELY HIGH LEVEL OF ALLERGEN SPECIFIC IgE Performed By: #### I CPA3 #### PATRICIA Saha ([id number]) [facility] ([facility]) [address] [place] [address] Rawlings IgE Qn (S) <0.10 Normal <0.10 [facility] Comment on above: Order Comment: Inter pretation Scale <0.10 kU/L - Class 0 Allergen: ABSENT OR UNDETECTABLE ALLERGEN SPECIFIC IgE 0.10-0.34 kU/L - Class 0/1 Allergen: EQUIVOCAL LEVEL OF ALLERGEN SPECIFIC IgE 0.35-0.69 kU/L - Class 1 Allergen: LOW LEVEL OF ALLERGEN SPECIFIC IgE 0.70-3.49 kU/L - Class 2 Allergen: MODERATE LEVEL OF ALLERGEN SPECIFIC IgE 3.50-17.49 kU/L - Class 3 Allergen: HIGH LEVEL OF ALLERGEN SPECIFIC IgE 17.50-49.99 kU/L - Class 4 Allergen: VERY HIGH LEVEL OF ALLERGEN SPECIFIC IgE 50.00-100.00 kU/L - Class 5 Allergen: ULTRA HIGH LEVEL OF ALLERGEN SPECIFIC IgE >100.00 kU/L - Class 6 Allergen: EXTREMELY HIGH LEVEL OF ALLERGEN SPECIFIC IgE Performed By: #### I CPA3 #### PATRICIA Saha ([id number]) [facility] ([facility]) [address] [place] [id number] Wheat IgE Qn (S) <0.10 Normal <0.10 [facility] Comment on above: Order Comment: Inter pretation Scale <0.10 kU/L - Class 0 Allergen: ABSENT OR UNDETECTABLE ALLERGEN SPECIFIC IgE 0.10-0.34 kU/L - Class 0/1 Allergen: EQUIVOCAL LEVEL OF ALLERGEN SPECIFIC IgE 0.35-0.69 kU/L - Class 1 Allergen: LOW LEVEL OF ALLERGEN SPECIFIC IgE 0.70-3.49 kU/L - Class 2 Allergen: MODERATE LEVEL OF ALLERGEN SPECIFIC IgE 3.50-17.49 kU/L - Class 3 Allergen: HIGH LEVEL OF ALLERGEN SPECIFIC IgE 17.50-49.99 kU/L - Class 4 Allergen: VERY HIGH LEVEL OF ALLERGEN SPECIFIC IgE 50.00-100.00 kU/L - Class 5 Allergen: ULTRA HIGH LEVEL OF ALLERGEN SPECIFIC IgE >100.00 kU/L - Class 6 Allergen: EXTREMELY HIGH LEVEL OF ALLERGEN SPECIFIC IgE Performed By: #### I CPA3 #### PATRICIA Saha ([id number]) [facility] ([facility]) [address] [place] [id number] Gliadin peptide Ab.IgAon Gliadin peptide IgA IA Qn (S) <1.0 Normal <15.0 [facility] Comment on above: Result Comment: Fals e negative Deamidated Gliadin Peptide Antibody, IgA results can occur in patients already adhering to a gluten-free diet or patients with IgA deficiency. Tissue Transglutaminase Antibody, IgA is the preferred test for screening patients with suspected Celiac Disease. ??? Performed By: #### [id number] #### PATRICIA Saha ([id number]) [facility] ([facility]) [id number] [place], [place] [id number] Gliadin peptide Ab.IgGon Gliadin peptide IgG IA Qn (S) <0.56 Normal 0.00-4.99 [facility] Comment on above: Result Comment: INTE RPRETIVE INFORMATION: Deamidated Gliadin Peptide (DGP) Ab, IgG In individuals with low or deficient IgA, testing for tissue transglutaminase (tTG) and deamidated Gliadin (DGP) antibodies of the IgG isotype is performed. Positive tTG and/or DGP IgG antibody results indicate celiac disease; however, small intestinal biopsy is required to establish a diagnosis due to the lower accuracy of these markers, especially in patients without IgA deficiency. Performed By: [employer] [address] [place] [address] Hat Presser: Real Thomas MD, PhD CLIA Number: [id number] Performed By: #### 6 [id number] #### [facility]) ([id number]) [address] [place] [address] Nursing Communicationon 04-17 Abbey fitted with la rge ankle brace [facility] Tissue transglutaminase Ab.I gAon 05-01-2023 tTG IgA IA Qn (S) <1.0 Normal <15.0 [facility] Comment on above: Result Comment: Tila ac disease is unlikely. False negative Tissue Transglutaminase Antibody, IgA results can occur in approximately 10% of patients with celiac disease, patients already adhering to a gluten-free diet, or patients with IgA deficiency. Performed By: #### [id number] #### PATRICIA Saha ([id number]) [facility] ([facility]) [address] [place] [id number] Tissue transglutaminase Ab.I gGon 05-01-2023 tTG IgG IA Qn (S) <0.82 Normal 0.00-4.99 [facility] Comment on above: Result Comment: INTE RPRETIVE INFORMATION: Tissue Transglutaminase Ab, IgG In individuals with low or deficient IgA, testing for tissue transglutaminase (tTG) and deamidated Gliadin (DGP) antibodies of the IgG isotype is performed. Positive tTG and/or DGP IgG antibody results indicate celiac disease; however, small intestinal biopsy is required to establish a diagnosis due to the lower accuracy of these markers, especially in patients without IgA deficiency. Performed By: [employer] [address] [place] [address] Hat Presser: Real Thomas MD, PhD CLIA Number: [id number] Performed By: #### 5 [id number] #### [facility] ([facility]) ([id number]) [address] [place] [address] XR Ankle - left 3 Viewson X-rays 3 views left ankle: There is no signs of fracture. There is some minor joint space narrowing consistent with the degenerative arthritis. GE RIS [facility] Radiology Study observation (narrative) [facility] Nursing Communicationon 03-20 Heel cushions given [facility] Nursing CommunicationOrdered By: Lien Solorio on 04-03-2023 [facility] Basophil percentageOrdered B y: Valentina Davidson on 03-19-2023 Chloride [Moles/Vol] 105 mmol/L 98-107 [facility] Glucose [Mass/Vol] 103 mg/dL 74-[address] [facility] Comment on above: Fasting Glucose resu lt from 100 to 125 mg/dL suggests IMPAIRED HOMEOSTASIS per A.D.A. criteria. Potassium [Moles/Vol] 4.1 mmol/L 3.5-5.1 [facility] Sodium [Moles/Vol] 141 mmol/L 136-[address] [facility] Laboratory - Chemistry and C hemistry - challengeOrdered By: Valentina Davidson on 03-19-2023 CO2 [Moles/Vol] 32.0 mmol/L 21.0-32.0 [facility] Urea nitrogen/Creatinine [Mass ratio] 16.1 mg/mg 10-20 [facility] No Panel InformationOrdered By: Valentina Davidson on 03-19-2023 Estimated GFR (MDRD) Amer 52 mL/min >60 [facility] Comment on above: GFR Calc Estimated GFR (MDRD) Non-Af Amer 43 mL/min >60 [facility] Comment on above: Non- GFR Calc Serum or plasma calcium rufino urement (mass/volume)Ordered By: Valentina Davidson on 03-19-2023 Calcium [Mass/Vol] 8.8 mg/dL 8.5-10.[address] [facility] Serum or plasma creatinine m easurement (mass/volume)Ordered By: Valentina Davidson on 03-19-2023 Creatinine [Mass/Vol] 1.68 mg/dL 0.70-1.30 [facility] Comment on above: The validity of the calculated GFR & GFRAA in patients over 70 years has not been determined. Clinical correlation is essential. Serum or plasma urea nitroge n measurement (mass/volume)Ordered By: Valentina Davidson on 03-19-2023 Urea nitrogen [Mass/Vol] 27 mg/dL 7-18 [facility] Thin prep Papanicolaou smear with manual screeningOrdered By: Valentina Davidson on 03-19-2023 Thin prep Papanicolaou smear with manual screening 4 5-15 [facility] Basophil percentageOrdered B y: Valentina Davidson on 03-06-2023 Chloride [Moles/Vol] 101 mmol/L 98-107 [facility] Glucose [Mass/Vol] 102 mg/dL 74-[address] [facility] Comment on above: Fasting Glucose resu lt from 100 to 125 mg/dL suggests IMPAIRED HOMEOSTASIS per A.D.A. criteria. Potassium [Moles/Vol] 3.6 mmol/L 3.5-5.1 [facility] Sodium [Moles/Vol] 140 mmol/L 136-[address] [facility] Laboratory - Chemistry and C hemistry - challengeOrdered By: Valentina Davidson on 03-06-2023 CO2 [Moles/Vol] 35.0 mmol/L 21.0-32.0 [facility] Urea nitrogen/Creatinine [Mass ratio] 14.3 mg/mg 10-20 [facility] No Panel InformationOrdered By: Valentina Davidson on 03-06-2023 Estimated GFR (MDRD) Amer 47 mL/min >60 [facility] Comment on above: GFR Calc Estimated GFR (MDRD) Non-Af Amer 39 mL/min >60 [facility] Comment on above: Non- GFR Calc Serum or plasma calcium rufino urement (mass/volume)Ordered By: Valentina Davidson on 03-06-2023 Calcium [Mass/Vol] 8.8 mg/dL 8.5-10.[address] [facility] Serum or plasma creatinine m easurement (mass/volume)Ordered By: Valentina Davidson on 03-06-2023 Creatinine [Mass/Vol] 1.82 mg/dL 0.70-1.30 [facility] Comment on above: The validity of the calculated GFR & GFRAA in patients over 70 years has not been determined. Clinical correlation is essential. Serum or plasma urea nitroge n measurement (mass/volume)Ordered By: Valentina Davidson on 03-06-2023 Urea nitrogen [Mass/Vol] 26 mg/dL -18 [facility] Thin prep Papanicolaou smear with manual screeningOrdered By: Valentina Davidson on 03-06-2023 Thin prep Papanicolaou smear with manual screening 4 5-15 [facility] NM Gallbladder Views W renita cystokinin and W radionuclide Isaiah 02-12-2023 1. This study demons trates patency of cystic duct and common bile duct without evidence of acute cholecystitis. 2. Delayed filling of the gallbladder, commonly seen in patient with chronic cholecystitis. I personally reviewed the images/study and I agree with the findings as stated by residential caregiver Natalia Chang MD. This study was interpreted at [place], [place]. MACRO: None Signed by: Vitaly Rodriguez 02/12/2023 3:28 PM Dictation workstation: [id number] MMODAL Interpreted By: Vitaly Rodriguez and Maltbie Grace STUDY: NM HEPATOBILIARY W CHOLECYSTOKININ; 02/12/2023 2:23 pm INDICATION: Signs/Symptoms:Abdominal bloating, right upper quadrant pain negative right upper quadrant ultrasound. COMPARISON: Abdominal ultrasound 01/17/2023 ACCESSION NUMBER(S): [id number] ORDERING CLINICIAN: ASHLEY CAZARES TECHNIQUE: DIVISION OF NUCLEAR MEDICINE HEPATOBILIARY SCAN (HIDA), QUANTITATIVE The patient received an intravenous dose of 6.0 mCi of Tc-99m mebrofenin (Choletec). Sequential images of the upper abdomen were then acquired over the next 120 minutes. An intravenous infusion of the cholecystokinin (CCK) analogue, Sincalide, was then administered followed by an additional period of imaging. Computer quantification of gallbladder emptying was also performed FINDINGS: There is prompt accumulation of activity within the liver and normal subsequent excretion via the biliary ductal system into the small bowel. The gallbladder first visualizes at about 66 minutes after radiopharmaceutical injection and progressively fills. After Sincalide administration, there is prompt contraction of the gallbladder with further anterograde transit of activity into the small bowel. The gallbladder ejection fraction is calculated to be 86 % (normal above 38%). MMODAL Vitaly Rodriguez MD - Interpreted By: Vitaly Rodriguez and Maltbie Grace STUDY: NM HEPATOBILIARY W CHOLECYSTOKININ; 02/12/2023 2:23 pm INDICATION: Signs/Symptoms:Abdominal bloating, right upper quadrant pain negative right upper quadrant ultrasound. COMPARISON: Abdominal ultrasound 01/17/2023 ACCESSION NUMBER(S): [id number] ORDERING CLINICIAN: ASHLEY CAZARES TECHNIQUE: DIVISION OF NUCLEAR MEDICINE HEPATOBILIARY SCAN (HIDA), QUANTITATIVE The patient received an intravenous dose of 6.0 mCi of Tc-99m mebrofenin (Choletec). Sequential images of the upper abdomen were then acquired over the next 120 minutes. An intravenous infusion of the cholecystokinin (CCK) analogue, Sincalide, was then administered followed by an additional period of imaging. Computer quantification of gallbladder emptying was also performed FINDINGS: There is prompt accumulation of activity within the liver and normal subsequent excretion via the biliary ductal system into the small bowel. The gallbladder first visualizes at about 66 minutes after radiopharmaceutical injection and progressively fills. After Sincalide administration, there is prompt contraction of the gallbladder with further anterograde transit of activity into the small bowel. The gallbladder ejection fraction is calculated to be 86 % (normal above 38%). IMPRESSION: 1. This study demonstrates patency of cystic duct and common bile duct without evidence of acute cholecystitis. 2. Delayed filling of the gallbladder, commonly seen in patient with chronic cholecystitis. I personally reviewed the images/study and I agree with the findings as stated by residential caregiver Natalia Chang MD. This study was interpreted at [place], [place]. MACRO: None Signed by: Vitaly Rodriguez 02/12/2023 3:28 PM Dictation workstation: [id number] [facility] Work Phone: Radiology Study observation (narrative) [facility] Work Phone: NM Gallbladder Views W renita cystokinin and W radionuclide IVOrdered By: Vitaly Rodriguez on 02-12-2023 [facility] Work Phone: NM HEPATOBILIARY W CHOLECYST OKININon 02-12-2023 NM HEPATOBILIARY W CHOLECYSTOKININ Interpreted By: Vitaly Rodriguez and Maltbie Grace STUDY: NM HEPATOBILIARY W CHOLECYSTOKININ; 02/12/2023 2:23 pm INDICATION: Signs/Symptoms:Abdominal bloating, right upper quadrant pain negative right upper quadrant ultrasound. COMPARISON: Abdominal ultrasound 01/17/2023 ACCESSION NUMBER(S): [id number] ORDERING CLINICIAN: ASHLEY CAZARES TECHNIQUE: DIVISION OF NUCLEAR MEDICINE HEPATOBILIARY SCAN (HIDA), QUANTITATIVE The patient received an intravenous dose of 6.0 mCi of Tc-99m mebrofenin (Choletec). Sequential images of the upper abdomen were then acquired over the next 120 minutes. An intravenous infusion of the cholecystokinin (CCK) analogue, Sincalide, was then administered followed by an additional period of imaging. Computer quantification of gallbladder emptying was also performed FINDINGS: There is prompt accumulation of activity within the liver and normal subsequent excretion via the biliary ductal system into the small bowel. The gallbladder first visualizes at about 66 minutes after radiopharmaceutical injection and progressively fills. After Sincalide administration, there is prompt contraction of the gallbladder with further anterograde transit of activity into the small bowel. The gallbladder ejection fraction is calculated to be 86 % (normal above 38%). IMPRESSION: 1. This study demonstrates patency of cystic duct and common bile duct without evidence of acute cholecystitis. 2. Delayed filling of the gallbladder, commonly seen in patient with chronic cholecystitis. I personally reviewed the images/study and I agree with the findings as stated by residential caregiver Natalia Chang MD. This study was interpreted at [place], [place]. MACRO: None Signed by: Vitaly Rodriguez 02/12/2023 3:28 PM Dictation workstation: [id number] [facility] Basophil percentageOrdered B y: Valentina Davidson on 01-24-2023 Chloride [Moles/Vol] 101 mmol/L 98-107 [facility] Glucose [Mass/Vol] 105 mg/dL 74-[address] [facility] Comment on above: Fasting Glucose resu lt from 100 to 125 mg/dL suggests IMPAIRED HOMEOSTASIS per A.D.A. criteria. Potassium [Moles/Vol] 4.4 mmol/L 3.5-5.1 [facility] Sodium [Moles/Vol] 140 mmol/L 136-[address] [facility] Laboratory - Chemistry and C hemistry - challengeOrdered By: Valentina Davidson on 01-24-2023 CO2 [Moles/Vol] 37.0 mmol/L 21.0-32.0 [facility] Urea nitrogen/Creatinine [Mass ratio] 19.6 mg/mg 10-20 [facility] No Panel InformationOrdered By: Valentina Davidson on 01-24-2023 Estimated GFR (MDRD) Amer 56 mL/min >60 [facility] Comment on above: GFR Calc Estimated GFR (MDRD) Non-Af Amer 46 mL/min >60 [facility] Comment on above: Non- GFR Calc Serum or plasma calcium rufino urement (mass/volume)Ordered By: Valentina Davidson on 01-24-2023 Calcium [Mass/Vol] 8.4 mg/dL 8.5-10.[address] [facility] Serum or plasma creatinine m easurement (mass/volume)Ordered By: Valentina Davidson on 01-24-2023 Creatinine [Mass/Vol] 1.58 mg/dL 0.70-1.30 [facility] Comment on above: The validity of the calculated GFR & GFRAA in patients over 70 years has not been determined. Clinical correlation is essential. Serum or plasma urea nitroge n measurement (mass/volume)Ordered By: Valentina Davidson on 01-24-2023 Urea nitrogen [Mass/Vol] 31 mg/dL 7-18 [facility] Thin prep Papanicolaou smear with manual screeningOrdered By: Valentina Davidson on 01-24-2023 Thin prep Papanicolaou smear with manual screening 2 5-15 [facility] US Abdomenon 01-18-2023 1. Unremarkable ultr asound of the abdomen. I personally reviewed the images/study and I agree with the findings as stated by resident physician Lisa Lowe MD. This study was interpreted at [place], [place]. MACRO: None Signed by: Kerry Smith 01/18/2023 4:32 PM Dictation workstation: [id number] MMODAL Interpreted By: Kerry Berger and Fu Tianyuan STUDY: US ABDOMEN COMPLETE; 01/17/2023 1:37 pm INDICATION: Bloating, abdominal pain. COMPARISON: None. ACCESSION NUMBER(S): [id number] ORDERING CLINICIAN: ASHLEY CAZARES TECHNIQUE: Multiple images of the abdomen were obtained. FINDINGS: LIVER: The liver measures 16.6 cm and is grossly unremarkable and free of any focal lesions. GALLBLADDER: The gallbladder is nondistended, and demonstrates no evidence of gallstones, wall thickening or surrounding fluid. The gallbladder wall measures 0.1 cm in thickness. Sonographic Chan's sign is negative. BILE DUCTS: No evidence of intra or extrahepatic biliary dilatation is identified; the common bile duct measures 0.25 cm. PANCREAS: The pancreas is poorly visualized due to overlying bowel gas. KIDNEYS: The right kidney measures 10.8 cm in length. The left kidney measures 10.0 cm in length. The renal cortical echogenicity and thickness are within normal limits bilaterally. No hydronephrosis or renal calculi are seen. SPLEEN: Not well visualized due to shadowing from overlying ribs. Spleen grossly measures 9.2 cm in length. PERITONEUM: There is no free or loculated fluid seen in the abdomen. ABDOMINAL AORTA AND IVC: The visualized portions of the aorta are unremarkable. MMODAL Kerry Smith MD - 01/18/2023 Interpreted By: Kerry Smith and Fu Tianyuan STUDY: US ABDOMEN COMPLETE; 01/17/2023 1:37 pm INDICATION: Bloating, abdominal pain. COMPARISON: None. ACCESSION NUMBER(S): [id number] ORDERING CLINICIAN: ASHLEY CAZARES TECHNIQUE: Multiple images of the abdomen were obtained. FINDINGS: LIVER: The liver measures 16.6 cm and is grossly unremarkable and free of any focal lesions. GALLBLADDER: The gallbladder is nondistended, and demonstrates no evidence of gallstones, wall thickening or surrounding fluid. The gallbladder wall measures 0.1 cm in thickness. Sonographic Chan's sign is negative. BILE DUCTS: No evidence of intra or extrahepatic biliary dilatation is identified; the common bile duct measures 0.25 cm. PANCREAS: The pancreas is poorly visualized due to overlying bowel gas. KIDNEYS: The right kidney measures 10.8 cm in length. The left kidney measures 10.0 cm in length. The renal cortical echogenicity and thickness are within normal limits bilaterally. No hydronephrosis or renal calculi are seen. SPLEEN: Not well visualized due to shadowing from overlying ribs. Spleen grossly measures 9.2 cm in length. PERITONEUM: There is no free or loculated fluid seen in the abdomen. ABDOMINAL AORTA AND IVC: The visualized portions of the aorta are unremarkable. IMPRESSION: 1. Unremarkable ultrasound of the abdomen. I personally reviewed the images/study and I agree with the findings as stated by resident physician Lisa Lowe MD. This study was interpreted at [place], [place]. MACRO: None Signed by: Kerry Smith 01/18/2023 4:32 PM Dictation workstation: [id number] [facility] Work Phone: US AbdomenOrdered By: Kerry Smith on 01-18-2023 [facility] Work Phone: US ABDOMEN COMPLETEon 2022 US ABDOMEN COMPLETE Interpreted By: Kerry Berger and Fu Tianyuan STUDY: US ABDOMEN COMPLETE; 01/17/2023 1:37 pm INDICATION: Bloating, abdominal pain. COMPARISON: None. ACCESSION NUMBER(S): [id number] ORDERING CLINICIAN: ASHLEY CAZARES TECHNIQUE: Multiple images of the abdomen were obtained. FINDINGS: LIVER: The liver measures 16.6 cm and is grossly unremarkable and free of any focal lesions. GALLBLADDER: The gallbladder is nondistended, and demonstrates no evidence of gallstones, wall thickening or surrounding fluid. The gallbladder wall measures 0.1 cm in thickness. Sonographic Chan's sign is negative. BILE DUCTS: No evidence of intra or extrahepatic biliary dilatation is identified; the common bile duct measures 0.25 cm. PANCREAS: The pancreas is poorly visualized due to overlying bowel gas. KIDNEYS: The right kidney measures 10.8 cm in length. The left kidney measures 10.0 cm in length. The renal cortical echogenicity and thickness are within normal limits bilaterally. No hydronephrosis or renal calculi are seen. SPLEEN: Not well visualized due to shadowing from overlying ribs. Spleen grossly measures 9.2 cm in length. PERITONEUM: There is no free or loculated fluid seen in the abdomen. ABDOMINAL AORTA AND IVC: The visualized portions of the aorta are unremarkable. IMPRESSION: 1. Unremarkable ultrasound of the abdomen. I personally reviewed the images/study and I agree with the findings as stated by resident physician Lisa Lowe MD. This study was interpreted at [place], [place]. MACRO: None Signed by: Kerry Smith 01/18/2023 4:32 PM Dictation workstation: [id number] [facility] US Abdomenon 01-17-2023 Radiology Study observation (narrative) [facility] Work Phone: Basophil percentageOrdered B y: Valentina Davidson on 01-02-2023 Chloride [Moles/Vol] 100 mmol/L 98-107 [facility] Glucose [Mass/Vol] 100 mg/dL 74-[address] [facility] Comment on above: Fasting Glucose resu lt from 100 to 125 mg/dL suggests IMPAIRED HOMEOSTASIS per A.D.A. criteria. Potassium [Moles/Vol] 3.9 mmol/L 3.5-5.1 [facility] Sodium [Moles/Vol] 139 mmol/L 136-[address] [facility] Laboratory - Chemistry and C hemistry - challengeOrdered By: Valentina Davidson on 01-02-2023 CO2 [Moles/Vol] 34.0 mmol/L 21.0-32.0 [facility] Natriuretic peptide B (Bld) [Mass/Vol] 265.1 pg/mL 0-100 [facility] Urea nitrogen/Creatinine [Mass ratio] 15.2 mg/mg 10-20 [facility] No Panel InformationOrdered By: Valentina Davidson on 01-02-2023 Estimated GFR (MDRD) Amer 42 mL/min >60 [facility] Comment on above: GFR Calc Estimated GFR (MDRD) Non-Af Amer 34 mL/min >60 [facility] Comment on above: Non- GFR Calc Serum or plasma calcium rufino urement (mass/volume)Ordered By: Valentina Davidson on 01-02-2023 Calcium [Mass/Vol] 8.8 mg/dL 8.5-10.[address] [facility] Serum or plasma creatinine m easurement (mass/volume)Ordered By: Valentina Davidson on 01-02-2023 Creatinine [Mass/Vol] 2.04 mg/dL 0.70-1.30 [facility] Comment on above: The validity of the calculated GFR & GFRAA in patients over 70 years has not been determined. Clinical correlation is essential. Serum or plasma urea nitroge n measurement (mass/volume)Ordered By: Valentina Davidson on 01-02-2023 Urea nitrogen [Mass/Vol] 31 mg/dL 7-18 [facility] Thin prep Papanicolaou smear with manual screeningOrdered By: Valentina Davidson on 01-02-2023 Thin prep Papanicolaou smear with manual screening 5 5-15 [facility] Basophil percentageOrdered B y: Louie Brown on 12-20-2022 Chloride [Moles/Vol] 103 mmol/L 98-107 [facility] Glucose [Mass/Vol] 93 mg/dL 74-[address] [facility] Potassium [Moles/Vol] 3.8 mmol/L 3.5-5.1 [facility] Sodium [Moles/Vol] 140 mmol/L 136-[address] [facility] Laboratory - Chemistry and C hemistry - challengeOrdered By: Louie Brown on 12-20-2022 CO2 [Moles/Vol] 34.0 mmol/L 21.0-32.0 [facility] Urea nitrogen/Creatinine [Mass ratio] 17.0 mg/mg 10-20 [facility] No Panel InformationOrdered By: Louie Brown on 12-20-2022 Estimated GFR (MDRD) Amer 44 mL/min >60 [facility] Comment on above: GFR Calc Estimated GFR (MDRD) Non-Af Amer 36 mL/min >60 [facility] Comment on above: Non- GFR Calc Serum or plasma calcium rufino urement (mass/volume)Ordered By: Louie [facility] on 12-20-2022 Calcium [Mass/Vol] 8.6 mg/dL 8.5-10.[address] [facility] Serum or plasma creatinine m easurement (mass/volume)Ordered By: Louie [facility] on 12-20-2022 Creatinine [Mass/Vol] 1.94 mg/dL 0.70-1.30 [facility] Comment on above: The validity of the calculated GFR & GFRAA in patients over 70 years has not been determined. Clinical correlation is essential. Serum or plasma urea nitroge n measurement (mass/volume)Ordered By: [place] [facility] on 12-20-2022 Urea nitrogen [Mass/Vol] 33 mg/dL 7-18 [facility] Thin prep Papanicolaou smear with manual screeningOrdered By: [facility] on 12-20-2022 Thin prep Papanicolaou smear with manual screening 3 5-15 [facility] Absolute lymphocyte countOrd ered By: Lanadarren Young on 12-04-2022 Lymphocytes Auto (Unsp spec) [#/Vol] 1.72 10*3/uL 0.83-4.51 [facility] Basophil percentageOrdered B y: Lana Hector on 12-04-2022 Basophils/100 WBC (Bld) 0.9 % 0-1 [facility] Chloride [Moles/Vol] 105 mmol/L 98-107 [facility] Eosinophils/100 WBC (Bld) 7.1 % 0-5 [facility] Glucose [Mass/Vol] 118 mg/dL 74-[address] [facility] Comment on above: Fasting Glucose resu lt from 100 to 125 mg/dL suggests IMPAIRED HOMEOSTASIS per A.D.A. criteria. Neutrophils (Bld) [#/Vol] 4.6 10*3/uL 2.0-7.7 [facility] Neutrophils/100 WBC (Bld) 58.6 % 47-70 [facility] Potassium [Moles/Vol] 3.9 mmol/L 3.5-5.1 [facility] Sodium [Moles/Vol] 138 mmol/L 136-145 [facility] WBC (Bld) [#/Vol] 7.9 10*3/uL 4.4-11.[address] [facility] Blood erythrocytes count (nu mber/volume)Ordered By: Lana Young on 12-04-2022 RBC (Bld) [#/Vol] 4.46 10*6/uL 4.6-6.2 [facility] Blood hemoglobin measurement (mass/volume)Ordered By: Lana Young on 12-04-2022 Hemoglobin (Bld) [Mass/Vol] 14.1 g/dL 13.0-16.5 [facility] Blood lymphocytes/100 leukoc ytesOrdered By: Lana Young on 12-04-2022 Lymphocytes/100 WBC (Bld) 21.9 % 19-41 [facility] Blood monocytes/100 leukocyt esOrdered By: Lana Young on 12-04-2022 Monocytes/100 WBC (Bld) 11.1 % 0-10 [facility] Blood platelet mean volumeOr dered By: Lana Young on 12-04-2022 Platelet mean volume (Bld) [Entitic vol] 10.5 fL 6.2-12.0 [facility] Determination of erythrocyte mean corpuscular volume (MCV)Ordered By: Lana Young on 12-04-2022 MCV (RBC) [Entitic vol] 96.6 fL 80-94 [facility] Hematocrit Auto (Bld) [Volum e fraction]Ordered By: Lana Young on 12-04-2022 Hematocrit (Bld) [Volume fraction] 43.1 % 40-54 [facility] Laboratory - Chemistry and C hemistry - challengeOrdered By: Lana Young on 12-04-2022 CO2 [Moles/Vol] 29.0 mmol/L 21.0-32.0 [facility] Magnesium [Mass/Vol] 2.4 mg/dL 1.6-2.6 [facility] Urea nitrogen/Creatinine [Mass ratio] 19.4 mg/mg 10-20 [facility] Laboratory - CoagulationOrde red By: Lana Young on 12-04-2022 aPTT Coag (Bld) [Time] 33.4 s 24.1-36.2 [facility] Laboratory - Hematology and Cell countsOrdered By: Lana Young on 12-04-2022 Erythrocyte distribution width (RBC) [Entitic vol] 46.5 fL 35.1-43.9 [facility] Erythrocyte distribution width (RBC) [Ratio] 13.1 % 11.6-14.6 [facility] Immature granulocytes/100 WBC (Bld) 0.400 % 0.0-0.9 [facility] Comment on above: IG% - Immature Granu locytes (promyelocytes, myelocytes and metamyelocytes) > 1% indicates that a LEFT SHIFT is Present. MCH (RBC) [Entitic mass] 31.6 pg 27.0-32.0 [facility] Nucleated RBC/100 WBC (Bld) [Ratio] 0 % 0-5 [facility] MCHC Auto (RBC) [Mass/Vol]Or dered By: Lana Young on 12-04-2022 MCHC (RBC) [Mass/Vol] 32.7 g/dL 32-36 [facility] No Panel InformationOrdered By: Lana Young on 12-04-2022 Estimated Creatinine Clearance Calc 48.92 ml/min [facility] Estimated GFR (MDRD) Amer 68 mL/min >60 [facility] Comment on above: GFR Calc Estimated GFR (MDRD) Non-Af Amer 56 mL/min >60 [facility] Comment on above: Non- GFR Calc Platelets bldOrdered By: Leonor Young on 12-04-2022 Platelets (Bld) [#/Vol] 188 10*3/uL 150-450 [facility] Serum or plasma calcium rufino urement (mass/volume)Ordered By: Lana Young on 12-04-2022 Calcium [Mass/Vol] 8.6 mg/dL 8.5-10.[address] [facility] Serum or plasma creatinine m easurement (mass/volume)Ordered By: Lana Young on 12-04-2022 Creatinine [Mass/Vol] 1.34 mg/dL 0.70-1.30 [facility] Comment on above: The validity of the calculated GFR & GFRAA in patients over 70 years has not been determined. Clinical correlation is essential. Serum or plasma urea nitroge n measurement (mass/volume)Ordered By: Lana Young on 12-04-2022 Urea nitrogen [Mass/Vol] 26 mg/dL 7-18 [facility] Thin prep Papanicolaou smear with manual screeningOrdered By: Lanadarren Young on 12-04-2022 Thin prep Papanicolaou smear with manual screening 4 5-15 [facility] Absolute lymphocyte countOrd ered By: Tavo Wu on 12-03-2022 Lymphocytes Auto (Unsp spec) [#/Vol] 1.81 10*3/uL 0.83-4.51 [facility] Basophil percentageOrdered B y: Tavo Wu on 12-03-2022 Basophils/100 WBC (Bld) 1.0 % 0-1 [facility] Chloride [Moles/Vol] 105 mmol/L 98-107 [facility] Eosinophils/100 WBC (Bld) 5.3 % 0-5 [facility] Glucose [Mass/Vol] 110 mg/dL 74-[address] [facility] Comment on above: Fasting Glucose resu lt from 100 to 125 mg/dL suggests IMPAIRED HOMEOSTASIS per A.D.A. criteria. Neutrophils (Bld) [#/Vol] 4.8 10*3/uL 2.0-7.7 [facility] Neutrophils/100 WBC (Bld) 58.7 % 47-70 [facility] Potassium [Moles/Vol] 4.2 mmol/L 3.5-5.1 [facility] Sodium [Moles/Vol] 140 mmol/L 136-[address] [facility] WBC (Bld) [#/Vol] 8.1 10*3/uL 4.4-11.[address] [facility] Blood erythrocytes count (nu mber/volume)Ordered By: Tavo Wu on 12-03-2022 RBC (Bld) [#/Vol] 4.72 10*6/uL 4.6-6.2 [facility] Blood hemoglobin measurement (mass/volume)Ordered By: Tavo Wu on 12-03-2022 Hemoglobin (Bld) [Mass/Vol] 14.9 g/dL 13.0-16.5 [facility] Blood lymphocytes/100 leukoc ytesOrdered By: Tavo Wu on 12-03-2022 Lymphocytes/100 WBC (Bld) 22.4 % 19-41 [facility] Blood monocytes/100 leukocyt esOrdered By: Tavo Wu on 12-03-2022 Monocytes/100 WBC (Bld) 12.4 % 0-10 [facility] Blood platelet mean volumeOr dered By: Tavo Wu on 12-03-2022 Platelet mean volume (Bld) [Entitic vol] 11.0 fL 6.2-12.0 [facility] Determination of erythrocyte mean corpuscular volume (MCV)Ordered By: Tavo Wu on 12-03-2022 MCV (RBC) [Entitic vol] 99.2 fL 80-94 [facility] Hematocrit Auto (Bld) [Volum e fraction]Ordered By: Tavo Wu on 12-03-2022 Hematocrit (Bld) [Volume fraction] 46.8 % 40-54 [facility] INR in Blood by Coagulation assayOrdered By: Alfonso Blackwood on 12-03-2022 INR Coag (Bld) [Relative time] 1.4 {INR} [facility] Laboratory - Chemistry and C hemistry - challengeOrdered By: Tavo Wu on 12-03-2022 CO2 [Moles/Vol] 32.0 mmol/L 21.0-32.0 [facility] Urea nitrogen/Creatinine [Mass ratio] 18.8 mg/mg 10-20 [facility] Laboratory - CoagulationOrde red By: Alfonso Blackwood on 12-03-2022 PT Coag (PPP) [Time] 17.4 s 11.7-14.9 [facility] Laboratory - Hematology and Cell countsOrdered By: Tavo Wu on 12-03-2022 Erythrocyte distribution width (RBC) [Entitic vol] 48.2 fL 35.1-43.9 [facility] Erythrocyte distribution width (RBC) [Ratio] 13.2 % 11.6-14.6 [facility] Immature granulocytes/100 WBC (Bld) 0.200 % 0.0-0.9 [facility] Comment on above: IG% - Immature Granu locytes (promyelocytes, myelocytes and metamyelocytes) > 1% indicates that a LEFT SHIFT is Present. MCH (RBC) [Entitic mass] 31.6 pg 27.0-32.0 [facility] Nucleated RBC/100 WBC (Bld) [Ratio] 0 % [facility]5 [facility] [Mass/Vol]Or dered By: Tavo Wu on 12-03-2022 MCHC (RBC) [Mass/Vol] 31.8 g/dL 32-36 [facility] No Panel InformationOrdered By: Tavo Wu on 12-03-2022 Troponin I High Sensitivity 114 pg/mL 3.0-78.0 [facility] Comment on above: Please Note: [place] t Units and Gender Specific Reference Ranges. For more information see Policy Stat Procedure [place] High Sensitivity Troponin (TNIH) and attachments. Digoxin Level 0.97 ng/mL 0.80-2.00 [facility] Estimated Creatinine Clearance Calc 39.73 ml/min [facility] Estimated GFR (MDRD) Amer 53 mL/min >60 [facility] Comment on above: GFR Calc Estimated GFR (MDRD) Non-Af Amer 44 mL/min >60 [facility] Comment on above: Non- GFR Calc Troponin I High Sensitivity 133 pg/mL 3.0-78.0 [facility] Comment on above: Critical Result(s) C alled at: 07:02:50 12/03/2022 by: Mariam Issa. Results read back by same. Please Note: New Test Units and Gender Specific Reference Ranges. For more information see Policy Stat Procedure [place] High Sensitivity Troponin (TNIH) and attachments. Platelets bldOrdered By: Yakelin Wu on 12-03-2022 Platelets (Bld) [#/Vol] 198 10*3/uL 150-450 [facility] Serum or plasma calcium rufino urement (mass/volume)Ordered By: Tavo Wu on 12-03-2022 Calcium [Mass/Vol] 8.6 mg/dL 8.5-10.[address] [facility] Serum or plasma creatinine m easurement (mass/volume)Ordered By: Tavo Wu on 12-03-2022 Creatinine [Mass/Vol] 1.65 mg/dL 0.70-1.30 [facility] Comment on above: The validity of the calculated GFR & GFRAA in patients over 70 years has not been determined. Clinical correlation is essential. Serum or plasma urea nitroge n measurement (mass/volume)Ordered By: Tavo Wu on 12-03-2022 Urea nitrogen [Mass/Vol] 31 mg/dL 7-18 [facility] Thin prep Papanicolaou smear with manual screeningOrdered By: Tavo Wu on 12-03-2022 Thin prep Papanicolaou smear with manual screening 3 5-15 [facility] Basophil percentageOrdered B y: Valentina Davidson on 11-27-2022 Chloride [Moles/Vol] 103 mmol/L 98-107 [facility] Glucose [Mass/Vol] 144 mg/dL 74-[address] [facility] Comment on above: Fasting Glucose resu lt greater than or equal to 126 mg/dL suggests DIABETES MELLITUS per A.D.A. criteria. Potassium [Moles/Vol] 4.0 mmol/L 3.5-5.1 [facility] Sodium [Moles/Vol] 138 mmol/L 136-[address] [facility] Laboratory - Chemistry and C hemistry - challengeOrdered By: Valentina Davidson on 11-27-2022 Magnesium [Mass/Vol] 2.5 mg/dL 1.6-2.6 [facility] CO2 [Moles/Vol] 31.0 mmol/L 21.0-32.0 [facility] Urea nitrogen/Creatinine [Mass ratio] 16.0 mg/mg 10-20 [facility] No Panel InformationOrdered By: Valentina Davidson on 11-27-2022 Thyroid Stimulating Hormone (TSH) 3.73 uIU/mL 0.358-3.74 [facility] Estimated GFR (MDRD) Amer 54 mL/min >60 [facility] Comment on above: GFR Calc Estimated GFR (MDRD) Non-Af Amer 45 mL/min >60 [facility] Comment on above: Non- GFR Calc Serum or plasma calcium rufino urement (mass/volume)Ordered By: Valentina Davidson on 11-27-2022 Calcium [Mass/Vol] 8.5 mg/dL 8.5-10.[address] [facility] Serum or plasma creatinine m easurement (mass/volume)Ordered By: Valentina Davidson on 11-27-2022 Creatinine [Mass/Vol] 1.63 mg/dL 0.70-1.30 [facility] Comment on above: The validity of the calculated GFR & GFRAA in patients over 70 years has not been determined. Clinical correlation is essential. Serum or plasma urea nitroge n measurement (mass/volume)Ordered By: Valentina Davidson on 11-27-2022 Urea nitrogen [Mass/Vol] 26 mg/dL 7-18 [facility] Thin prep Papanicolaou smear with manual screeningOrdered By: Valentina Davidson on 11-27-2022 Thin prep Papanicolaou smear with manual screening 4 5-15 [facility] Basophil percentageOrdered B y: Valentina Davidson on 11-15-2022 Chloride [Moles/Vol] 103 mmol/L 98-107 [facility] Glucose [Mass/Vol] 100 mg/dL 74-[address] [facility] Comment on above: Fasting Glucose resu lt from 100 to 125 mg/dL suggests IMPAIRED HOMEOSTASIS per A.D.A. criteria. Potassium [Moles/Vol] 3.8 mmol/L 3.5-5.1 [facility] Sodium [Moles/Vol] 138 mmol/L 136-[address] [facility] Laboratory - Chemistry and C hemistry - challengeOrdered By: Valentina Davidson on 11-15-2022 CO2 [Moles/Vol] 31.0 mmol/L 21.0-32.0 [facility] Urea nitrogen/Creatinine [Mass ratio] 18.1 mg/mg 10-20 [facility] No Panel InformationOrdered By: Valentina Davidson on 11-15-2022 Estimated GFR (MDRD) Amer 53 mL/min >60 [facility] Comment on above: GFR Calc Estimated GFR (MDRD) Non-Af Amer 44 mL/min >60 [facility] Comment on above: Non- GFR Calc Serum or plasma calcium rufino urement (mass/volume)Ordered By: Valentina Davidson on 11-15-2022 Calcium [Mass/Vol] 8.4 mg/dL 8.5-10.[address] [facility] Serum or plasma creatinine m easurement (mass/volume)Ordered By: Valentina Davidson on 11-15-2022 Creatinine [Mass/Vol] 1.66 mg/dL 0.70-1.30 [facility] Comment on above: The validity of the calculated GFR & GFRAA in patients over 70 years has not been determined. Clinical correlation is essential. Serum or plasma urea nitroge n measurement (mass/volume)Ordered By: Valentina Davidson on 11-15-2022 Urea nitrogen [Mass/Vol] 30 mg/dL 7-18 [facility] Thin prep Papanicolaou smear with manual screeningOrdered By: Valentina Davidson on 11-15-2022 Thin prep Papanicolaou smear with manual screening 4 5-15 [facility] Laboratory - Chemistry and C hemistry - challengeOrdered By: Louie Brown on 11-07-2022 Natriuretic peptide B (Bld) [Mass/Vol] 258.8 pg/mL 0-100 [facility] Nursing Communicationon 08-3 Prepped foot [facility] Tobacco Screening.on 023 Adult depression screening assessment No [employer] [facility] Work Phone: Fall risk assessment a) No falls within the last year [employer] [facility] [employer] Phone: Tobacco use status CPHS b) No [employer] [facility] Work Phone: [phone] Complete Blood Count + Diffe rentialon 02-21-2022 Basophils/100 WBC (Bld) 1.3 % 0.0 - 2.0 [employer] [facility] Work Phone: Erythrocyte distribution width (RBC) [Ratio] 13.1 % See Below [employer] [facility] Work Phone: Comment on above: Reference Range: 11. 5 - 14.5 Hematocrit (Bld) [Volume fraction] 47.0 % See Below [employer] [facility] Work Phone: [phone] Comment on above: Reference Range: 41. 0 - 52.0 Hemoglobin (Bld) [Mass/Vol] 15.4 g/dL See Below [employer] [facility] Work Phone: [phone] Comment on above: Reference Range: 13. 5 - 17.5 Lymphocytes/100 WBC (Bld) 16.3 % See Below [employer] [facility] Work Phone: [phone] Comment on above: Reference Range: 13. 0 - 44.0 MCHC (RBC) [Mass/Vol] 32.8 g/dL See Below [facility] Work Phone: [phone] Comment on above: Reference Range: 32. 0 - 36.0 MCV (RBC) [Entitic vol] 97 fL 80 - 100 [facility] Work Phone: [phone] Monocytes/100 WBC (Bld) 9.2 % 2.0 - 10.0 [facility] Work Phone: Neutrophils/100 WBC (Bld) 69.3 % See Below [facility] Work Phone: [phone] Comment on above: Reference Range: 40. 0 - 80.0 Platelets (Bld) [#/Vol] 250 10*3/uL 150 - 450 [facility] [employer] Work Phone: [phone] RBC (Bld) [#/Vol] 4.85 {x10E12/L} See Below [facility] Work Phone: [phone] Comment on above: Reference Range: 4.5 0 - 5.90 WBC (Bld) [#/Vol] 6.4 10*3/uL 4.4 - 11.3 [facility] Work Phone: [phone] Complete Blood Count + Differential 0.08 {x10E9/L} See Below [facility] Work Phone: [phone] Comment on above: Reference Range: 0.0 0 - 0.10 Complete Blood Count + Differential 0.22 {x10E9/L} See Below [facility] Work Phone: [phone] Comment on above: Reference Range: 0.0 0 - 0.70 Complete Blood Count + Differential 0.59 {x10E9/L} See Below [facility] Work Phone: [phone] Comment on above: Reference Range: 0.1 0 - 1.00 Complete Blood Count + Differential 1.04 {x10E9/L} below low threshold See Below [facility] Work Phone: [phone] Comment on above: Reference Range: 1.2 0 - 4.80 Complete Blood Count + Differential 4.43 {x10E9/L} See Below [employer] [facility] Work Phone: [phone] Comment on above: Reference Range: 1.2 0 - 7.70 Percent differential counts (%) should be interpreted in the context of the absolute cell counts (cells/L). Complete Blood Count + Differential 3.4 % 0.0 - 6.0 [employer] [facility] Work Phone: [phone] Complete Blood Count + Differential 0.5 % 0.0 - 0.9 [facility]ENTER[facility] Work Phone: [phone] Comment on above: Immature Granulocyte Count (IG) includes promyelocytes, myelocytes and metamyelocytes but does not include bands. Percent differential counts (%) should be interpreted in the context of the absolute cell counts (cells/L). Laboratory - Chemistry and C hemistry - challengeon 02-21-2022 Albumin BCP dye [Mass/Vol] 4.2 g/dL 3.4 - 5.0 [employer] [facility] Work Phone: [phone] ALP [Catalytic activity/Vol] 47 U/L 33 - 136 [employer] [facility] Work Phone: ALT With P-5'-P [Catalytic activity/Vol] 14 U/L 10 - 52 [facility]ENTER[facility] Work Phone: [phone] Comment on above: Patients treated wit h Sulfasalazine may generate falsely decreased results for ALT. Anion gap [Moles/Vol] 11 mmol/L 10 - 20 [employer] [facility] Work Phone: AST With P-5'-P [Catalytic activity/Vol] 18 U/L 9 - 39 [employer] [facility] Work Phone: [phone] Bilirubin [Mass/Vol] 0.7 mg/dL 0.0 - 1.2 [employer] [facility] Work Phone: [phone] Calcium [Mass/Vol] 9.1 mg/dL 8.6 - 10.3 [employer] [facility] [employer] [facility] Work Phone: Chloride [Moles/Vol] 102 mmol/L 98 - 107 -M [facility] Work Phone: CO2 [Moles/Vol] 29 mmol/L 21 - 32 -[facility] Work Phone: Creatinine [Mass/Vol] 0.97 mg/dL See Below - [facility] Work Phone: Comment on above: Reference Range: 0.5 0 - 1.30 Glucose [Mass/Vol] 96 mg/dL 74 - 99 [facility] Work Phone: Potassium [Moles/Vol] 4.1 mmol/L 3.5 - 5.3 [facility] Medical [facility] Work Phone: Protein [Mass/Vol] 6.9 g/dL 6.4 - 8.2 [facility] [employer] [facility] Work Phone: Sodium [Moles/Vol] 138 mmol/L 136 - 145 [facility] [employer] [facility] Work Phone: Urea nitrogen [Mass/Vol] 20 mg/dL 6 - 23 [facility] Work Phone: Lipid Panelon 02-21-2022 Cholesterol [Mass/Vol] 201 mg/dL above high threshold 0 - 199 [facility] Work Phone: Comment on above: . AGE DESIRABLE BORD LASHA HIGH HIGH 0-19 Y 0 - 169 170 - 199 >/= 200 20-24 Y 0 - 189 190 - 224 >/= 225 >24 Y 0 - 199 200 - 239 >/= 240 All ranges are based on fasting samples. Specific therapeutic targets will vary based on patient-specific cardiac risk.. Pediatric guidelines reference:Pediatrics 2011, 128(S5). Adult guidelines reference: NCEP ATPIII Guidelines, LILLIANA 2001, 258:2486-97. Venipuncture immediately after or during the administration of Metamizole may lead to falsely low results. Testing should be performed immediately prior to Metamizole dosing. Cholesterol in HDL [Mass/Vol] 67.0 mg/dL [employer] [facility] Work Phone: [phone] Comment on above: . AGE VERY LOW LOW N ORMAL HIGH 0-19 Y < 35 < 40 40-45 ---- 20- 24 Y ---- < 40 >45 ---- >24 Y ---- < 40 40-60 >60. Cholesterol in LDL [Mass/Vol] 119 mg/dL above high threshold 0 - 99 [employer] [facility] Work Phone: [phone] Comment on above: . NEAR BORD AGE SHAN RABLE OPTIMAL HIGH HIGH VERY HIGH 0-19 Y 0 - 109 --- 110-129 >/= 130 ---- 20-24 Y 0 - 119 --- 120-159 >/= 160 ---- >24 Y 0 - 99 100-129 130-159 160-189 >/=190. Cholesterol.total/Cho lesterol in HDL [Mass ratio] 3.0 {ratio} [employer] [facility] Work Phone: [phone] Comment on above: REF VALUESDESIRABLE < 3.4HIGH RISK > 5.0 Triglyceride [Mass/Vol] 73 mg/dL 0 - 149 [employer] [facility] Work Phone: Comment on above: . AGE DESIRABLE BORD LASHA HIGH HIGH VERY HIGH 0 D-90 D 19 - 174 ---- ---- ----91 D- 9 Y 0 - 74 75 - 99 >/= 100 ---- 10-19 Y 0 - 89 90 - 129 >/= 130 ---- 20-24 Y 0 - 114 115 - 149 >/= 150 ---- >24 Y 0 - 149 150 - 199 200- 499 >/= 500. Venipuncture immediately after or during the administration of Metamizole may lead to falsely low results. Testing should be performed immediately prior to Metamizole dosing. Lipid Panel 15 mg/dL 0 - 40 [employer] [facility] Work Phone: No Panel Informationon 02-21 84 {mL/min/1.73m2} >90 [facility] [employer] [facility] Work Phone: Comment on above: CALCULATIONS OF MELY MATED GFR ARE PERFORMED USING THE 2020 CKD-EPI STUDY REFIT EQUATION WITHOUT THE RACE VARIABLE FOR THE IDMS-TRACEABLE CREATININE METHODS.https://jasn.asnjournals.org/content/early/ N.2624238525 Prostate Spec.Ag, Screenon 0 02-21-2022 Prostate specific Ag [Mass/Vol] 4.17 ng/mL above high threshold See Below [facility] Work Phone: Comment on above: Reference Range: 0.0 0 - 4.00The FDA requires that the method used for PSA assay be reported to the physician. Values obtained with different assay methods must not be used interchangeably. [facility] using the Tapru PSA assay is a two-site immunoenzymatic sandwich assay. The assay is approved for measurement of prostate-specific antigen (PSA)in serum and may be used in conjunction with a digital rectal examination in men 50 years and older as an aid in detection of prostate cancer.8-Xwjxy-qlanafvly inhibitors (e.g. Proscar, Finasteride, Avodart, Dutasteride and Annie) for the treatment of BPH have been shown to lower PSA levels by an average of 50% after 6 months of treatment. Colonoscopyon 09-25-2021 Colonoscopy PATIENTNAME Patient Name: Chasity Pino EXAMDATE Procedure Date: 09/25/2021 8:23 AM PATIENTID PATIENTACCOUNTNUM PATIENTDOB Date of : 1950 ADMITTYPE Admit Type: Outpatient PATIENTROOM Site: [facility] Proc 1 ETHNICITY Ethnicity: Not or RACE Race: White PROVDR Attending MD: Ashley Cazares DO ENDOPROCEDURENAME Procedure: Colonoscopy INDICATION Indications: Screening for colorectal malignant neoplasm PRIMARYPROVIDER Providers: Ashley Cazares DO (Doctor), Brandi Fernandes RN (Nurse), Britni Luna, Sack Filler EDREFPROVIDER Referring: Lavelle Boone MD CURRENT_MEDS Medicines: Midazolam 2.5 mg IV, Meperidine 25 mg IV COMPLIC Complications: No immediate complications. ENDOPROCEDURETEXT Procedure: Pre-Anesthesia Assessment: - Prior to the procedure, a History and Physical was performed, and patient medications and allergies were reviewed. The patient is competent. The risks and benefits of the procedure and the sedation options and risks were discussed with the patient. All questions were answered and informed consent was obtained. Patient identification and proposed procedure were verified by the physician in the pre-procedure area. Mental Status Examination: alert and oriented. Airway Examination: normal oropharyngeal airway and neck mobility. Respiratory Examination: clear to auscultation. CV Examination: normal. Prophylactic Antibiotics: The patient does not require prophylactic antibiotics. Prior Anticoagulants: The patient has taken Xarelto (rivaroxaban), last dose was 3 days prior to procedure. ASA Grade Assessment: II - A patient with mild systemic disease. After reviewing the risks and benefits, the patient was deemed in satisfactory condition to undergo the procedure. The anesthesia plan was to use moderate sedation / analgesia (conscious sedation). Immediately prior to administration of medications, the patient was re-assessed for adequacy to receive sedatives. The heart rate, respiratory rate, oxygen saturations, blood pressure, adequacy of pulmonary ventilation, and response to care were monitored throughout the procedure. The physical status of the patient was re-assessed after the procedure. After I obtained informed consent, the scope was passed under direct vision. Throughout the procedure, the patient's blood pressure, pulse, and oxygen saturations were monitored continuously. The pediatric colonoscope was introduced through the anus and advanced to the terminal ileum, with identification of the appendiceal orifice and IC valve. The colonoscopy was performed without difficulty. The patient tolerated the procedure well. The quality of the bowel preparation was excellent. The terminal ileum, ileocecal valve, appendiceal orifice, and rectum were photographed. FINDING Findings: The perianal and digital rectal examinations were normal. Pertinent negatives include normal sphincter tone and no palpable rectal lesions. The terminal ileum appeared normal. The entire examined colon appeared normal on direct and retroflexion views. SEDATION Moderate Sedation: Moderate (conscious) sedation was administered by the endoscopy nurse and supervised by the endoscopist. The following parameters were monitored: oxygen saturation, heart rate, blood pressure, and response to care. Total physician intraservice time was 20 minutes. EBL Estimated Blood Loss: Estimated blood loss: none. IMPRESS Impression: - The examined portion of the ileum was normal. - The entire examined colon is normal on direct and retroflexion views. - No specimens collected. ENDORECOMMENDATION Recommendation: - Patient has a contact number available for emergencies. The signs and symptoms of potential delayed complications were discussed with the patient. Return to normal activities tomorrow. Written discharge instructions were provided to the patient. - Resume previous diet. - Continue present medications. - No repeat colonoscopy due to current age (66 years or older) and the absence of advanced adenomas. CPT_CODES Procedure Code(s): --- Professional --- 17578, Colonoscopy, flexible; diagnostic, including collection of specimen(s) by brushing or washing, when performed (separate procedure) G0500, Moderate sedation services provided by the same physician or other qualified health acute care surgeon performing a gastrointestinal endoscopic service that sedation supports, requiring the presence of an independent trained observer to assist in the monitoring of the patient's level of consciousness and physiological status; initial 15 minutes of intra-service time; patient age 5 years or older (additional time may be reported with 65606, as appropriate) ICD_CODES Diagnosis Code(s): --- Professional --- Z12.11, Encounter for screening for ramesh (more content not included)... Normal [facility] No Panel Informationon 09-25 [email or web address] [id number]} [facility] Work Phone: Basophil percentageon 2021 Chloride [Moles/Vol] 105 mmol/L 98-107 [facility] Work Phone: Glucose [Mass/Vol] 107 mg/dL 74-[address] [facility] Work Phone: Comment on above: Fasting Glucose resu lt from 100 to 125 mg/dL suggests IMPAIRED HOMEOSTASIS per A.D.A. criteria. Potassium [Moles/Vol] 4.4 mmol/L 3.5-5.1 [facility] Work Phone: Sodium [Moles/Vol] 141 mmol/L 136-[address] [facility] Work Phone: Laboratory - Chemistry and C hemistry - challengeon 07-30-2021 CO2 [Moles/Vol] 33.0 mmol/L 21.0-32.0 [facility] Work Phone: Magnesium [Mass/Vol] 2.2 mg/dL 1.6-2.[address] [facility] [address] [facility] Work Phone: Urea nitrogen/Creatinine [Mass ratio] 13.2 mg/mg 10-20 [facility] Work Phone: No Panel Informationon 07-30 Estimated GFR (MDRD) Amer 71 mL/min >60 [facility] Work Phone: Comment on above: GFR Calc Estimated GFR (MDRD) Non-Af Amer 59 mL/min >60 [facility] Work Phone: Comment on above: Non- GFR Calc Thyroid Stimulating Hormone (TSH) 2.90 uIU/mL 0.358-3.74 [facility] Work Phone: Serum or plasma calcium rufino urement (mass/volume)on 07-30-2021 Calcium [Mass/Vol] 8.6 mg/dL 8.5-10.1 [facility] Work Phone: Serum or plasma creatinine m easurement (mass/volume)on 07-30-2021 Creatinine [Mass/Vol] 1.29 mg/dL 0.70-1.30 [facility] Work Phone: Comment on above: The validity of the calculated GFR & GFRAA in patients over 70 years has not been determined. Clinical correlation is essential. Serum or plasma urea nitroge n measurement (mass/volume)on 07-30-2021 Urea nitrogen [Mass/Vol] 17 mg/dL 7-18 [facility] Work Phone: Thin prep Papanicolaou smear with manual screeningon 07-30-2021 Thin prep Papanicolaou smear with manual screening 3 5-15 [facility] Work Phone: XR Foot Right 3+ Views (Soham castro)on 05-10-2021 X-rays 3 views right foot: There is a new onset of avulsion fracture fragment of the navicular tuberosity medially. Patient had an ostectomy of the fifth metatarsal base laterally. Patient has significant degenerative changes of the cuneiforms and metatarsal bases. 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 Patient has a decreased medial longitudinal arch GE RIS [facility] Radiology Study observation (narrative) [facility] XR OR FOOT RIGHT 2 VIEWSon 0 04-11-2021 XR OR FOOT RIGHT 2 VIEWS EXAMINATION: XR OR FOOT RIGHT 2 VIEWS [...] radiographs. No retained radiopaque hardware is identified. IMPRESSION: Intraoperative fluoroscopic support provided for partial excision of the base of 5th metatarsal. No indication on the provided images that intraoperative interpretation was performed. See operative note. Workstation ID: [id number] Dictated by: RADHA FIORE on FriApr 12, 2021 2:11:26 PM EST Transcribed by: RADHA FIORE on FriApr 12, 2021 2:11:26 PM EST Finalized by: RADHA FIORE on FriApr 12, 2021 2:11:26 PM EST Normal [facility] Comment on above: Order Comment: Injur y/Trauma or Illness?:Illness/Other How long have you had these symptoms (acute/chronic)?:Acute Reason for exam?:Excision bone spur right 5th metatarsal Type of Exam?:Initial Additional signs and symptoms?: Fluoro time in minutes:.22 .22 minute or 13 seconds Fluoro dose in mGy?:.28 .279 mGy/min Medicare Annual Wellness Vis iton 03-08-2021 Medicare Annual Wellness Visit *Chief Complaint YEARLY MEDICARE WELLNESS History of Present Illness The patient is being seen for the subsequent annual wellness visit. Past Medical, Surgical and Family History: reviewed and updated in chart. Medications and Supplements: Review of all medications by a prescribing practitioner or clinical pharmacist (such as prescriptions, OTCs, herbal therapies and supplements) documented in the medical record. No, the patient is not using opioids. Patient Self Assessment of Health Status: good. Tobacco use: Non-User Alcohol use: Non-User Illicit drug use: Non-User Current diet: well balanced diet. Exercise Frequency: regularly. Depression/Suicide Screening: . During the past 2 weeks, the patient has not felt down, depressed or hopeless. During the past 2 weeks, the patient has not felt little interest or pleasure in doing things. Hearing Impairment: none, bilaterally. Cognitive Impairment: No cognitive impairment observed. Bathing: performs independently. Dressing: performs independently. Walking: performs independently. Managing Finances: performs independently. Shopping: performs independently. Managing Medications: performs independently. Housework / Basic Home Maintenance: performs independently. Falls Risk Screening:. CHASITY has not fallen in the last 6 months. Home safety risk factors: none. Advance directives:. Patient has living will. Patient's End of Life Decisions: End of life decisions were reviewed with the patient. I agree to follow the patient's decisions. No headache, chest pain, shortness of breath, dizziness, lightheadedness, or edema Seen Cardiology this past fall, recommended no change in treatment no palpitations, tolerating anti-coagulation Review of Systems Constitutional: NAD, no fevers, chills, sweats or fatigue Rep: no cough or shortness of breath Cardio: no chest pain, edema, or palpitations GI: no nausea, vomiting, diarrhea, constipation, or heartburn : normal urine flow and stream, no nocturia or dysuria MS: no joint pain or significant limits of function Skin: no visible rashes or suspicious lesions Neuro: alert and oriented X4, no numbness, tingling or issues with balance Psych: no anxiety or depression *Active Problems Allergic rhinitis (477.9) (J30.9) Arthritis (716.90) (M19.90) Atrial fibrillation (427.31) (I48.91) BPH without urinary obstruction (600.00) (N40.0) Cough (786.2) (R05.9) Elevated PSA (790.93) (R97.20) Insomnia (780.52) (G47.00) Medicare annual wellness visit, subsequent (V70.0) (Z00.00) Screening for diabetes mellitus (V77.1) (Z13.1) Screening for heart disease (V81.2) (Z13.6) Screening for lipid disorders (V77.91) (Z13.220) Screening for prostate cancer (V76.44) (Z12.5) Surgical History History of Appendectomy History of Cardiac catheterization 2018, neg, [place] History of Carpal tunnel surgery 2018, R hand History of Colonoscopy [place], 10 years History of Foot fracture repair History of Knee replacement History of Phacoemulsification of cataract and insertion of intraocular lens 2019 History of Tonsillectomy with adenoidectomy History of Trigger finger repair Family History Family history of diabetes mellitus (V18.0) (Z83.3) Family history of heart failure (V17.49) (Z82.49) Family history of Flores's lung Family history of acute myocardial infarction (V17.3) (Z82.49) Family history of diabetes mellitus (V18.0) (Z83.3) Family history of diabetes mellitus (V18.0) (Z83.3) Social History Active advance directive (V49.89) (Z78.9) Consumes alcohol (V49.89) (Z72.89) Denied: History of Drug use Never a smoker Non-smoker (V49.89) (Z78.9) Patient has active durable power of claim attorney (DPOA) designee for healthcare Patient has active power of claim attorney for health care (V49.89) (Z78.9) *Allergies Sulfa Drugs Recorded By: Tata Smith; 01/06/2019 2:07:34 PM Additional reactions - Unknown Reaction *Current Meds Medication NameInstruction Disability PlacardEXP: 04/13/2025 Xarelto 20 MG Oral TabletTake 1 tablet daily Immunizations Influenza --- Series1: Nov 25 2016 12:00AM; Series2: Dec 02 2017 12:00AM; Series3: 19-Nov-2018; Series4: 08-Nov-2019; Series5: 08-Nov-2019; Series6: 08-Nov-2019; Series7: Nov 21 2020 12:00AM Moderna COVID-19 Vaccine 100 MCG/0.5ML Intramuscular Suspension --- Series1: Apr 15 2020 12:00AM; Series2: May 12 2020 12:00AM; Series3: Dec 29 2020 12:00AM PCV --- Series1: 25-Nov-2016 PPSV --- Series1: 10-Jan-2020 Shingrix 50 MCG Intramuscular Suspension Reconstituted --- Series1: 27-Jan-2019; Series2: 31-Aug-2019 Tdap --- Series1: 28-Apr-2017 Patient Care Team Care Team MemberRoleSpecialtyOffice Number Gilda QUACH, Eben Albarran [facility] [phone] Physical Exam Gen: Alert and oriented, no acute distress HEENT: normal TMs/external ear, conjunctiva normal, PERRLA/EOMI, neck supple, no lymphadenopathy or (more content not included)... Normal [facility] Tobacco Screening.on 022 Adult depression screening assessment Negative Construct [facility] Work Phone: Fall risk assessment a) No falls within the last year [employer] Work Phone: Tobacco use status CPHS b) No Construct [facility] Work Phone: CBC AND DIFFERENTIALon 03-02 Basophils (Bld) [#/Vol] 0.00 10*3/uL Normal 0.00 - 0.10 [facility] Comment on above: Performed By: #### C BCDF #### [address] [address] Basophils/100 WBC (Bld) 0.8 % Normal 0.0 - 2.0 [facility] Comment on above: Performed By: #### C BCDF #### [address] [address] Eosinophils (Bld) [#/Vol] 0.30 10*3/uL Normal 0.00 - 0.70 [facility] Comment on above: Performed By: #### C BCDF #### [address] [address] Eosinophils/100 WBC (Bld) 4.8 % Normal 0.0 - 6.0 [facility] Comment on above: Performed By: #### C BCDF #### [address] [address] Erythrocyte distribution width (RBC) [Ratio] 13.3 % Normal 11.5 - 14.5 [facility] Comment on above: Performed By: #### C BCDF #### [address] [address] Hematocrit (Bld) [Volume fraction] 43.9 % Normal 41.0 - 52.0 [facility] Comment on above: Performed By: #### C BCDF #### [address] [address] Hemoglobin (Bld) [Mass/Vol] 14.5 g/dL Normal 13.5 - 17.5 [facility] Comment on above: Performed By: #### C BCDF #### [address] [address] Lymphocytes (Bld) [#/Vol] 1.20 10*3/uL Normal 1.20 - 4.80 [facility] Comment on above: Performed By: #### C BCDF #### [address] [address] Lymphocytes/100 WBC (Bld) 22.5 % Normal 13.0 - 44.0 [facility] Comment on above: Performed By: #### C BCDF #### [address] [address] MCHC (RBC) [Mass/Vol] 33.1 g/dL Normal 32.0 - 36.0 [facility] Comment on above: Performed By: #### C BCDF #### [address] [address] MCV (RBC) [Entitic vol] 98 fL Normal 80 - 100 [facility] Comment on above: Performed By: #### C BCDF #### [address] [address] Monocytes (Bld) [#/Vol] 0.70 10*3/uL Normal 0.10 - 1.00 [facility] Comment on above: Performed By: #### C BCDF #### [address] [address] Monocytes/100 WBC (Bld) 12.0 % Normal 2.0 - 10.0 [facility] Comment on above: Performed By: #### C BCDF #### [address] [address] Neutrophils (Bld) [#/Vol] 3.30 10*3/uL Normal 1.20 - 7.70 [facility] Comment on above: Result Comment: Perc ent differential counts (%) should be interpreted in the context of the absolute cell counts (cells/L). Performed By: #### C BCDF #### [address] [address] Neutrophils/100 WBC (Bld) 59.9 % Normal 40.0 - 80.0 [facility] Comment on above: Performed By: #### C BCDF #### [address] [address] Platelets (Bld) [#/Vol] 228 10*3/uL Normal 150 - 450 [facility] Comment on above: Performed By: #### C BCDF #### [address] [address] RBC 4.46 x10E12/L Low 4.50 - 5.90 [facility] Comment on above: Performed By: #### C BCDF #### [address] [address] WBC (Bld) [#/Vol] 5.4 10*3/uL Normal 4.4 - 11.3 [facility] Comment on above: Performed By: #### C BCDF #### [address] [address] COMPREHENSIVE PANELon 2021 Albumin [Mass/Vol] 3.8 g/dL Normal 3.4 - 5.0 [facility] Comment on above: Performed By: #### C MP #### [address] [address] ALP [Catalytic activity/Vol] 47 U/L Normal 33 - 136 [facility] Comment on above: Performed By: #### C MP #### [address] [address] ALT [Catalytic activity/Vol] 13 U/L Normal 10 - 52 [facility] Comment on above: Result Comment: Sarina ents treated with Sulfasalazine may generate falsely decreased results for ALT. Performed By: #### C MP #### [address] [address] Anion gap [Moles/Vol] 10 mmol/L Normal 10 - 20 [facility] Comment on above: Performed By: #### C MP #### [address] [address] AST [Catalytic activity/Vol] 20 U/L Normal 9 - 39 [facility] Comment on above: Performed By: #### C MP #### [address] [address] Bilirubin [Mass/Vol] 0.8 mg/dL Normal 0.0 - 1.2 [facility] Comment on above: Performed By: #### C MP #### [address] [address] Calcium [Mass/Vol] 9.0 mg/dL Normal 8.6 - 10.3 [facility] Comment on above: Performed By: #### C MP #### [address] [address] Chloride [Moles/Vol] 104 mmol/L Normal 98 - 107 [facility] Comment on above: Performed By: #### C MP #### [address] [address] Creatinine [Mass/Vol] 0.92 mg/dL Normal 0.50 - 1.30 [facility] Comment on above: Performed By: #### C MP #### [address] [address] GFR/1.73 sq M.predicted among non-blacks MDRD (S/P/Bld) [Vol rate/Area] 90 mL/min/{1.73_m2} Normal >90 [facility] Comment on above: Result Comment: CALC ULATIONS OF ESTIMATED GFR ARE PERFORMED USING THE 2020 CKD-EPI STUDY REFIT EQUATION WITHOUT THE RACE VARIABLE FOR THE IDMS-TRACEABLE CREATININE METHODS. https://jasn.asnjournals.org/content//ASN.297527 8408 Performed By: #### C MP #### [address] [address] Glucose [Mass/Vol] 86 mg/dL Normal 74 - 99 [facility] Comment on above: Performed By: #### C MP #### [address] [address] HCO3 (Bld) [Moles/Vol] 29 mmol/L Normal 21 - 32 [facility] Comment on above: Performed By: #### C MP #### [address] [address] Potassium [Moles/Vol] 4.3 mmol/L Normal 3.5 - 5.3 [facility] Comment on above: Performed By: #### C MP #### [address] [address] Protein [Mass/Vol] 6.5 g/dL Normal 6.4 - 8.2 [facility] Comment on above: Performed By: #### C MP #### [address] [address] Sodium [Moles/Vol] 139 mmol/L Normal 136 - 145 [facility] Comment on above: Performed By: #### C MP #### [address] [address] Urea nitrogen [Mass/Vol] 18 mg/dL Normal 6 - 23 [facility] Comment on above: Performed By: #### C MP #### [address] [address] Complete Blood Count + Diffe rentialon 03-02-2021 Basophils/100 WBC (Bld) 0.8 % 0.0 - 2.0 [employer] [facility] Work Phone: [phone] Erythrocyte distribution width (RBC) [Ratio] 13.3 % See Below [facility] Work Phone: [phone] Comment on above: Reference Range: 11. 5 - 14.5 Hematocrit (Bld) [Volume fraction] 43.9 % See Below [facility] Work Phone: [phone] Comment on above: Reference Range: 41. 0 - 52.0 Hemoglobin (Bld) [Mass/Vol] 14.5 g/dL See Below [facility] Work Phone: [phone] Comment on above: Reference Range: 13. 5 - 17.5 Lymphocytes/100 WBC (Bld) 22.5 % See Below [facility] Work Phone: [phone] Comment on above: Reference Range: 13. 0 - 44.0 MCHC (RBC) [Mass/Vol] 33.1 g/dL See Below [facility] [employer] [facility] Work Phone: [phone] Comment on above: Reference Range: 32. 0 - 36.0 MCV (RBC) [Entitic vol] 98 fL 80 - 100 [facility] Work Phone: [phone] Monocytes/100 WBC (Bld) 12.0 % 2.0 - 10.0 [facility] Work Phone: [phone] Neutrophils/100 WBC (Bld) 59.9 % See Below [facility] Work Phone: [phone] Comment on above: Reference Range: 40. 0 - 80.0 Platelets (Bld) [#/Vol] 228 10*3/uL 150 - 450 [facility] Work Phone: [phone] RBC (Bld) [#/Vol] 4.46 {x10E12/L} below low threshold See Below [facility] Work Phone: [phone] Comment on above: Reference Range: 4.5 0 - 5.90 WBC (Bld) [#/Vol] 5.4 10*3/uL 4.4 - 11.3 [facility] Work Phone: [phone] Complete Blood Count + Differential 0.00 {x10E9/L} See Below [facility] Work Phone: [phone] Comment on above: Reference Range: 0.0 0 - 0.10 Complete Blood Count + Differential 0.30 {x10E9/L} See Below [facility] Work Phone: Comment on above: Reference Range: 0.0 0 - 0.70 Complete Blood Count + Differential 0.70 {x10E9/L} See Below [facility] Work Phone: [phone] Comment on above: Reference Range: 0.1 0 - 1.00 Complete Blood Count + Differential 1.20 {x10E9/L} See Below [facility] Work Phone: [phone] Comment on above: Reference Range: 1.2 0 - 4.80 Complete Blood Count + Differential 3.30 {x10E9/L} See Below [facility] Work Phone: [phone] Comment on above: Reference Range: 1.2 0 - 7.70 Percent differential counts (%) should be interpreted in the context of the absolute cell counts (cells/L). Complete Blood Count + Differential 4.8 % 0.0 - 6.0 [facility] Work Phone: [phone] Laboratory - Chemistry and C hemistry - challengeon 03-02-2021 Albumin BCP dye [Mass/Vol] 3.8 g/dL 3.4 - 5.0 [facility] Work Phone: ALP [Catalytic activity/Vol] 47 U/L 33 - 136 [facility] Work Phone: ALT With P-5'-P [Catalytic activity/Vol] 13 U/L 10 - 52 [facility] Work Phone: [phone] Comment on above: Patients treated wit h Sulfasalazine may generate falsely decreased results for ALT. Anion gap [Moles/Vol] 10 mmol/L 10 - 20 [facility] Work Phone: AST With P-5'-P [Catalytic activity/Vol] 20 U/L 9 - 39 [facility] Work Phone: Bilirubin [Mass/Vol] 0.8 mg/dL 0.0 - 1.2 [facility] Work Phone: Calcium [Mass/Vol] 9.0 mg/dL 8.6 - 10.3 -[facility] Work Phone: Chloride [Moles/Vol] 104 mmol/L 98 - 107 [facility] Work Phone: CO2 [Moles/Vol] 29 mmol/L 21 - 32 [facility] Work Phone: Creatinine [Mass/Vol] 0.92 mg/dL See Below - [facility] Work Phone: [phone] Comment on above: Reference Range: 0.5 0 - 1.30 Glucose [Mass/Vol] 86 mg/dL 74 - 99 [facility] Work Phone: Potassium [Moles/Vol] 4.3 mmol/L 3.5 - 5.3 - [facility] Work Phone: Protein [Mass/Vol] 6.5 g/dL 6.4 - 8.2 [facility] Work Phone: Sodium [Moles/Vol] 139 mmol/L 136 - 145 -[facility] Work Phone: Urea nitrogen [Mass/Vol] 18 mg/dL 6 - 23 -[facility] Work Phone: No Panel Informationon 03-02 90 {mL/min/1.73m2} >90 -[facility] Work Phone: Comment on above: CALCULATIONS OF MELY MATED GFR ARE PERFORMED USING THE 2020 CKD-EPI STUDY REFIT EQUATION WITHOUT THE RACE VARIABLE FOR THE IDMS-TRACEABLE CREATININE METHODS.https://jasn.asnjournals.org/content/early/ N.6038869048 PROSTATE SPEC.AG,SCREENon PROSTATE SPEC.AG,SCREEN 5.20 ng/mL High 0.00 - 4.00 [facility] Comment on above: Result Comment: The FDA requires that the method used for PSA assay be reported to the physician. Values obtained with different assay methods must not be used interchangeably. This test was performed at [facility] using the Access [employer] PSA assay is a two-site immunoenzymatic sandwich assay. The assay is approved for measurement of prostate-specific antigen (PSA)in serum and may be used in conjunction with a digital rectal examination in men 50 years and older as an aid in detection of prostate cancer. 4-Xiefq-henoeilwz inhibitors (e.g. Proscar, Finasteride, Avodart, Dutasteride and Annie) for the treatment of BPH have been shown to lower PSA levels by an average of 50% after 6 months of treatment. Performed By: #### P [facility] #### [place] [address] Prostate Spec.Ag, Screenon 0 03-02-2021 Prostate specific Ag [Mass/Vol] 5.20 ng/mL above high threshold See Below -[employer] [facility] Work Phone: Comment on above: Reference Range: 0.0 0 - 4.00The FDA requires that the method used for PSA assay be reported to the physician. Values obtained with different assay methods must not be used interchangeably. This testwas [facility] at [facility] using the Access Hybritech PSA assay is a two-site immunoenzymatic sandwich assay. The assay is approved for measurement of prostate-specific antigen (PSA)in serum and may be used in conjunction with a digital rectal examination in men 50 years and older as an aid in detection of prostate cancer.8-Ctjlw-gljwddyam inhibitors (e.g. Proscar, Finasteride, Avodart, Dutasteride and Annie) for the treatment of BPH have been shown to lower PSA levels by an average of 50% after [address] Cardiac Scoringon 021 CT Cardiac Scoring Normal [facility] Work Phone: XR FOOT RIGHT 3+ VIEWS (SOHAM CASTRO)on 11-23-2020 X-rays 3 views right foot. Patient has significant degenerative changes throughout the fourth and fifth metatarsal base cuboid joint. Patient has an inferior calcaneal heel spur and a decreased medial longitudinal arch. No signs of stress fracture. [employer] [facility] Radiology Study observation (narrative) [facility] Otheron 03-04-2019 XR Chest 2 views Interpreted by: GURDEEP LYONS03/05/19 14:15MRN: [id number] Name: CHASTIY PINO STUDY:TH CHEST 2 VIEW PA AND LAT; 03/04/2019 9:47 am INDICATION:cough. COMPARISON:None. ORDERING CLINICIAN:LAVELLE BOONE TECHNIQUE:PA and lateral views of the chest were obtained. FINDINGS:MEDIASTINUM/LUNGS/ BENJAMIN:No cardiomegaly, vascular congestion, or pleural effusion.Both lungs are well aerated and clear.No pneumothorax.No tracheal deviation.No abnormal hilar fullness or gross mass on either side. BONES:No lytic or blastic destructive bone lesion. There vmjkzh-vp-unfjnwxw disc space narrowing and endplate osteophytosisthroughout the thoracic spine. Moderate right glenohumeral jointspace loss with spur formation. UPPER ABDOMEN:Grossly intact. 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 Wklz-ve-xyxucfbj thoracicspine DJD as described. Otherwise, negative exam.Electronically signed by: RAJEEV LYONS 03/05/19 14:15 Normal [facility] Work Phone: Complete Blood Count + [facility] Basophils (Bld) [#/Vol] 0.00 {x10E9/L} See Below [facility] Work Phone: Comment on above: Reference Range: 0.0 0 - 0.10 Basophils/100 WBC (Bld) 0.9 % 0.0 - 2.0 [facility] Work Phone: [phone] Eosinophils (Bld) [#/Vol] 0.20 {x10E9/L} See Below [facility] Work Phone: [phone] Comment on above: Reference Range: 0.0 0 - 0.70 Eosinophils/100 WBC (Bld) 4.2 % 0.0 - 6.0 [facility] Work Phone: [phone] Erythrocyte distribution width (RBC) [Ratio] 13.4 % See Below [facility] Work Phone: [phone] Comment on above: Reference Range: 11. 5 - 14.5 Hematocrit (Bld) [Volume fraction] 44.7 % See Below [facility] Work Phone: [phone] Comment on above: Reference Range: 41. 0 - 52.0 Hemoglobin (Bld) [Mass/Vol] 14.7 g/dL See Below [facility] Work Phone: [phone] Comment on above: Reference Range: 13. 5 - 17.5 Lymphocytes (Bld) [#/Vol] 1.20 {x10E9/L} See Below [facility] Work Phone: [phone] Comment on above: Reference Range: 1.2 0 - 4.80 Lymphocytes/100 WBC (Bld) 20.9 % See Below [facility] Work Phone: [phone] Comment on above: Reference Range: 13. 0 - 44.0 MCHC (RBC) [Mass/Vol] 32.9 g/dL See Below [facility] [employer] [facility] Work Phone: [phone] Comment on above: Reference Range: 32. 0 - 36.0 MCV (RBC) [Entitic vol] 98 fL 80 - 100 [facility] Work Phone: [phone] Monocytes (Bld) [#/Vol] 0.70 {x10E9/L} See Below [facility] Work Phone: [phone] Comment on above: Reference Range: 0.1 0 - 1.00 Monocytes/100 WBC (Bld) 13.0 % 2.0 - 10.0 [facility] Work Phone: [phone] Neutrophils (Bld) [#/Vol] 3.40 {x10E9/L} See Below [facility] Work Phone: [phone] Comment on above: Reference Range: 1.2 0 - 7.70 Neutrophils/100 WBC (Bld) 61.0 % See Below [facility] Work Phone: [phone] Comment on above: Reference Range: 40. 0 - 80.0 Platelets (Bld) [#/Vol] 236 {x10E9/L} 150 - 450 [facility] [facility] Work Phone: [phone] RBC (Bld) [#/Vol] 4.55 {x10E12/L} See Below [facility] Work Phone: [phone] Comment on above: Reference Range: 4.5 0 - 5.90 WBC (Bld) [#/Vol] 5.6 {x10E9/L} 4.4 - 11.3 [facility] Work Phone: [phone] Lipid Panelon 12-28-2018 Cholesterol [Mass/Vol] 166 mg/dL 0 - 199 [facility] Work Phone: [phone] Comment on above: . AGE DESIRABLE BORD LASHA HIGH HIGH 0-19 Y 0 - 169 170 - 199 >/= 200 20-24 Y 0 - 189 190 - 224 >/= 225 >24 Y 0 - 199 200 - 239 >/= 240 All ranges are based on fasting samples. Specific therapeutic targets will vary based on patient-specific cardiac risk.. Pediatric guidelines reference:Pediatrics 2011, 128(S5). Adult guidelines reference: NCEP ATPIII Guidelines, LILLIANA 2001, 258:2486-97. Venipuncture immediately after or during the administration of Metamizole may lead to falsely low results. Testing should be performed immediately prior to Metamizole dosing. Cholesterol in HDL [Mass/Vol] 57.0 mg/dL [facility] Work Phone: Comment on above: . AGE VERY LOW LOW N ORMAL HIGH 0-19 Y < 35 < 40 40-45 ---- 20- 24 Y ---- < 40 >45 ---- >24 Y ---- < 40 40-60 >60. Cholesterol in LDL [Mass/Vol] 96 mg/dL 0 - 99 [employer] [facility] Work Phone: Comment on above: . NEAR BORD AGE SHAN RABLE OPTIMAL HIGH HIGH VERY HIGH 0-19 Y 0 - 109 --- 110-129 >/= 130 ---- 20-24 Y 0 - 119 --- 120-159 >/= 160 ---- >24 Y 0 - 99 100-129 130-159 160-189 >/=190. Cholesterol.total/Cho lesterol in HDL [Mass ratio] 2.9 {ratio} [employer] [facility] Work Phone: Comment on above: REF VALUESDESIRABLE < 3.4HIGH RISK > 5.0 Triglyceride [Mass/Vol] 63 mg/dL 0 - 149 [employer] [facility] Work Phone: [phone] Comment on above: . AGE DESIRABLE BORD LASHA HIGH HIGH VERY HIGH 0 D-90 D 19 - 174 ---- ---- ----91 D- 9 Y 0 - 74 75 - 99 >/= 100 ---- 10-19 Y 0 - 89 90 - 129 >/= 130 ---- 20-24 Y 0 - 114 115 - 149 >/= 150 ---- >24 Y 0 - 149 150 - 199 200- 499 >/= 500. Venipuncture immediately after or during the administration of Metamizole may lead to falsely low results. Testing should be performed immediately prior to Metamizole dosing. Lipid Panel 13 mg/dL 0 - 40 [employer] [facility] Work Phone: Metabolic Panelon 12-28-2018 ALP [Catalytic activity/Vol] 45 U/L 33 - 136 [employer] [facility] Work Phone: [phone] Anion gap [Moles/Vol] 9 mmol/L below low threshold 10 - 20 [employer] [facility] Work Phone: Bilirubin [Mass/Vol] 1.0 mg/dL 0.0 - 1.2 [facility] Work Phone: Calcium [Mass/Vol] 8.8 mg/dL 8.6 - 10.3 [facility] Work Phone: Chloride [Moles/Vol] 103 mmol/L 98 - 107 [facility] Work Phone: CO2 [Moles/Vol] 31 mmol/L 21 - 32 [facility] Work Phone: Creatinine [Mass/Vol] 1.08 mg/dL See Below - [facility] Work Phone: [phone] Comment on above: Reference Range: 0.5 0 - 1.30 Glucose [Mass/Vol] 95 mg/dL 74 - 99 -[facility] Work Phone: [phone] Potassium [Moles/Vol] 4.2 mmol/L 3.5 - 5.3 - [facility] Work Phone: Protein [Mass/Vol] 6.4 g/dL 6.4 - 8.2 [facility] Work Phone: Sodium [Moles/Vol] 139 mmol/L 136 - 145 [facility] Work Phone: Urea nitrogen [Mass/Vol] 22 mg/dL 6 - 23 [facility] Work Phone: Otheron 12-28-2018 Albumin BCP dye [Mass/Vol] 3.9 g/dL 3.4 - 5.0 [facility] Work Phone: ALT With P-5'-P [Catalytic activity/Vol] 16 U/L 10 - 52 [facility] Work Phone: Comment on above: Patients treated wit h Sulfasalazine may generate falsely decreased results for ALT. AST With P-5'-P [Catalytic activity/Vol] 20 U/L 9 - 39 -[facility] Work Phone: >60 >60 -[facility] Work Phone: Comment on above: CALCULATIONS OF MELY MATED GFR ARE PERFORMED USING THE MDRD STUDY EQUATION FOR THE IDMS-TRACEABLE CREATININE METHODS. CLIN CHEM 2007;53:766-72 Prostate Spec.Ag, Screenon 1 02-27-2018 Prostate specific Ag [Mass/Vol] 3.77 ng/mL See Below -[facility] Work Phone: Comment on above: Reference Range: 0.0 0 - 4.00The FDA requires that the method used for PSA assay be reported to the physician. Values obtained with different assay methods must not be used interchangeably. This testwas performed at [facility] using the Access [employer]britech PSA assay is a two-site immunoenzymatic sandwich assay. The assay is approved for measurement of prostate-specific antigen (PSA)in serum and may be used in conjunction with a digital rectal examination in men 50 years and older as an aid in detection of prostate cancer.6-Ynpvw-nxgnukplk inhibitors (e.g. Proscar, Finasteride, Avodart, Dutasteride and Annie) for the treatment of BPH have been shown to lower PSA levels by an average of 50% after 6 months of treatment. Auto Diffon 11-25-2017 Basophils #/vol (Bld) 0.1 E3/mcL Normal 0.0-0.2 [facility] Comment on above: Order Comment: Order Added by Discern Expert. Performed By: #### 2 [id number] #### [employer] [address] [place] [address] Basophils/100 WBC (Bld) 1.1 % Normal 0.0-2.0 [facility] Comment on above: Order Comment: Order Added by Discern Expert. Performed By: #### 2 [id number] #### [employer]DI [employer] [address] [place] [address] Eos Absolute 0.2 E3/mcL Normal 0.0-0.7 [facility] Comment on above: Order Comment: Order Added by Discern Expert. Performed By: #### 2 [id number] #### [employer] [address] [place] [address] Eosinophils/100 WBC (Bld) 3.2 % Normal 0.0-11.0 [facility] Comment on above: Order Comment: Order Added by Discern Expert. Performed By: #### 2 [id number] #### [employer] [address] [place] [address] Lymphocytes #/vol (Bld) 1.3 E3/mcL Normal 1.2-3.4 [facility] Comment on above: Order Comment: Order Added by Discern Expert. Performed By: #### 2 [id number] #### [employer]lin[employer] [address] [place] [address] Lymphocytes/100 WBC (Bld) 23.2 % Normal 20.0-55.0 [facility] Comment on above: Order Comment: Order Added by Discern Expert. Performed By: #### 2 [id number] #### [employer] [address] [place] [address] [place] Absolute 0.7 E3/mcL Normal 0.0-0.7 [facility] Comment on above: Order Comment: Order Added by Discern Expert. Performed By: #### 2 [id number] #### [employer]lin[employer] [address] [place] [address] Monocytes/100 WBC (Bld) 13.3 % High 0.0-10.0 [facility] Comment on above: Order Comment: Order Added by Discern Expert. Performed By: #### 2 [id number] #### [employer] [address] [place] [address] Neutro Absolute 3.2 E3/mcL Normal 1.4-6.5 [facility] Comment on above: Order Comment: Order Added by Discern Expert. Performed By: #### 2 [id number] #### [employer] [address] [place] [address] Neutro Auto 59.2 % Normal 37.0-75.0 [facility] Comment on above: Order Comment: Order Added by Discern Expert. Performed By: #### 2 [id number] #### [employer]DI [employer] [address] [place] [address] CBC w/ Auto Diffon 8 Erythrocyte distribution width Ratio (RBC) 13.4 % Normal 11.5-14.5 [facility] Comment on above: Performed By: #### 2 [id number] #### [employer]DI HamlinHemo [address] [place] [id number] Hematocrit Volume Fraction (Bld) 45.2 % Normal 42.0-52.0 [facility] Comment on above: Performed By: #### 2 [id number] #### [employer] Hamlin[employer] [address] [place] [id number] Hemoglobin mass conc (Bld) 15.3 g/dL Normal 13.5-18.0 [facility] Comment on above: Performed By: #### 2 [id number] #### [employer] Hamlin[employer] [address] [place], [place] [id number] MCH Entitic mass (RBC) 32.9 pg High 27.0-31.0 [facility] Comment on above: Performed By: #### 2 [id number] #### [employer]DI HamlinHemo [address] [place], [place] [id number] MCHC mass conc (RBC) 33.8 g/dL Normal 33.0-37.0 [facility] Comment on above: Performed By: #### 2 [id number] #### LEYDI HamlinHemo [facility] [place] [phone] MCV Entitic volume (RBC) 97.3 fL Normal 78.0-100.0 [facility] Comment on above: Performed By: #### 2 [id number] #### LEYDI [employer] [address] [place] [address] Platelet mean volume Entitic volume (Bld) 8.6 fL Normal 7.4-11.0 [facility] Comment on above: Performed By: #### 2 [id number] #### LEYDI [employer] [address] [place] [address] Platelets #/vol (Bld) 203 E3/mcL Normal 130-400 [facility] Comment on above: Performed By: #### 2 [id number] #### LYEDI RemHemo [address] [place] [address] RBC #/vol (Bld) 4.64 E6/mcL Normal 3.90-6.10 [facility] Comment on above: Performed By: #### 2 [id number] #### LEYDI Rem[employer] [address] [place] [address] WBC #/vol (Bld) 5.4 E3/mcL Normal 3.6-11.0 [facility] Comment on above: Performed By: #### 2 [id number] #### LEYDI Rem[employer] [address] [place] [address] CMPon 11-25-2017 Globulin mass conc (S) 3.0 g/dL Normal 2.0-4.0 [facility] Comment on above: Performed By: #### 2 [id number] #### [employer] [address] [place] [address] Anion gap molar conc 9 mmol/L Normal 6-16 [facility] Comment on above: Performed By: #### 2 [id number] #### [employer] [address] [place] [address] Albumin mass conc 3.9 g/dL Normal 3.4-5.0 [facility] Comment on above: Performed By: #### 2 [id number] #### [employer] [address] [place], [place] [id number] Albumin/Globulin mass ratio 1.5 {ratio} Normal 1.1-1.9 [facility] Comment on above: Performed By: #### 2 [id number] #### [employer] [address] [place], [place] [id number] Alk Phos 50 Normal 33-136 [facility] Comment on above: Performed By: #### 2 [id number] #### [employer] [address] [place] [address] ALT enzyme act/vol 13 Int._Unit/L Normal 10-52 [facility] Comment on above: Performed By: #### 2 [id number] #### [employer] [address] [place] [address] AST enzyme act/vol 18 Int._Unit/L Normal 9-39 [facility] Comment on above: Performed By: #### 2 [id number] #### [employer] [address] [place] [address] Bili Total 0.9 mg/dL Normal 0.0-1.2 [facility] Comment on above: Performed By: #### 2 [id number] #### [employer] [address] [place] [address] Calcium mass conc 9.1 mg/dL Normal 8.6-10.3 [facility] Comment on above: Performed By: #### 2 [id number] #### [employer] [address] [place] [address] Chloride molar conc 103 mmol/L Normal 98-107 [facility] Comment on above: Performed By: #### 2 [id number] #### [facility] [employer] [address] [place] [address] CO2 molar conc 32.0 mmol/L Normal 21.0-32.0 [facility] Comment on above: Performed By: #### 2 [id number] #### [facility] [employer] [address] [place] [address] Creatinine mass conc 1.0 mg/dL Normal 0.6-1.3 [facility] Comment on above: Performed By: #### 2 [id number] #### [facility] [employer] [address] [place] [address] Glucose mass conc 100 mg/dL High 70-99 [facility] Comment on above: Performed By: #### 2 [id number] #### [facility] [employer] [address] [place] [address] Potassium molar conc 4.5 mmol/L Normal 3.5-5.3 [facility] Comment on above: Performed By: #### 2 [id number] #### [employer] [address] [place] [address] Protein mass conc 6.5 g/dL Normal 6.4-8.2 [facility] Comment on above: Performed By: #### 2 [id number] #### [employer] [address] [place] [address] Sodium molar conc 139 mmol/L Normal 136-145 [facility] Comment on above: Performed By: #### 2 [id number] #### [employer] [address] [place] [address], [place] [address] Urea nitrogen mass conc 19 mg/dL Normal 6-23 [facility] Comment on above: Performed By: #### 2 [id number] #### [employer] [facility] [place] [address] Urea nitrogen/Creatinine mass ratio 19.0 ratio Normal 5.4-30.0 [facility] Comment on above: Performed By: #### 2 [id number] #### [employer] [address] [place] [address] eGFRon 11-25-2017 GFR/1.73 sq M predicted among non-blacks MDRD vol rate/area (S/P/Bld) mL/min/{1.73_m2} Normal [facility] Comment on above: Order Comment: Order added by Discern Expert. Performed By: #### 1 [id number] #### [employer] [employer] [address] [place] [address] Vital Signs Date Time Vital Sign Value Performing Clinician Faci linda 05-21-2024 11:54-0400 Body height 172.[address] Eben Vo MD Work Phone: [facility] 05-21-2024 11:52-0400 Diastolic blood pressure 84 mm[Hg] Dr. Eben Vo MD Work Phone: [facility] 05-21-2024 11:52-0400 Heart rate 131 /min Dr. Eben Vo MD Work Phone: [facility] 05-21-2024 11:52-0400 Respiratory rate 18 /min Dr. Eben Vo MD Work Phone: [facility] 05-21-2024 11:52-0400 Systolic blood pressure 134 mm[Hg] Dr. Eben Vo MD Work Phone: [facility] 05-20-2024 10:32-0400 Body temperature 98.1 [degF] Reji Rose DPM Work Phone: [facility] 05-20-2024 10:32-0400 Diastolic blood pressure 68 mm[Hg] Reji Rose DPM Work Phone: [facility] 05-20-2024 10:32-0400 Heart rate 52 /min Reji Rose DPM Work Phone: [facility] 05-20-2024 10:32-0400 Systolic blood pressure 113 mm[Hg] Reji Rose DPM Work Phone: [facility] 05-07-2024 09:05-0400 Body mass index (BMI) [Ratio] 24.02 kg/m2 Eben Vo MD Work Phone: [facility] 05-07-2024 09:05-0400 Body weight 71.67 kg Eben Vo MD Work Phone: [facility] 05-07-2024 09:05-0400 Diastolic blood pressure 58 mm[Hg] Eben Vo MD Work Phone: [facility] 05-07-2024 09:05-0400 Heart rate 61 /min Eben Vo MD Work Phone: [facility] 05-07-2024 09:05-0400 SaO2% (BldA) [Mass fraction] 95 % Eben Vo MD Work Phone: [facility] 05-07-2024 09:05-0400 Systolic blood pressure 102 mm[Hg] Eben Vo MD Work Phone: [facility] 04-29-2024 13:08-0400 Body temperature 97.9 [degF] Reji Rose DPM Work Phone: [facility] 04-29-2024 13:08-0400 Diastolic blood pressure 71 mm[Hg] Reji Rose DPM Work Phone: [facility] 04-29-2024 13:08-0400 Heart rate 65 /min Reji Rose DPM Work Phone: [facility] 04-29-2024 13:08-0400 Systolic blood pressure 130 mm[Hg] Reji Rose DPM Work Phone: [facility] 04-12-2024 15:54-0500 Body temperature 98.1 [degF] Reji Rose DPM Work Phone: [facility] 04-12-2024 15:54-0500 Diastolic blood pressure 71 mm[Hg] Reji Rose DPM Work Phone: [facility] 04-12-2024 15:54-0500 Heart rate 79 /min Reji Rose DPM Work Phone: [facility] 04-12-2024 15:54-0500 Systolic blood pressure 121 mm[Hg] Reji Beverly DPM Work Phone: [facility] 02-24-2024 12:45-0500 Body temperature 97.9 [degF] Dr. Eben Vo MD Work Phone: [facility] 02-24-2024 12:45-0500 Diastolic blood pressure 58 mm[Hg] Dr. Eben Vo MD Work Phone: [facility] 02-24-2024 12:45-0500 Heart rate 59 /min Dr. Eben Vo MD Work Phone: [facility] 02-24-2024 12:45-0500 Respiratory rate 18 /min Dr. Eben Vo MD Work Phone: [facility] 02-24-2024 12:45-0500 SaO2% (BldA) [Mass fraction] 99 % Dr. Eben Vo MD Work Phone: [facility] 02-24-2024 12:45-0500 Systolic blood pressure 101 mm[Hg] Dr. Eben Vo MD Work Phone: [facility] 02-23-2024 16:44-0500 Body mass index (BMI) [Ratio] 23.9 kg/m2 Dr. Eben Vo MD Work Phone: [facility] 02-23-2024 16:44-0500 Body weight 71.[address] Eben Vo MD Work Phone: [facility] 02-23-2024 13:00-0500 Inhaled oxygen flow rate 4 L/min Dr. Eben Vo MD Work Phone: [facility] 02-06-2024 09:41-0500 Body mass index (BMI) [Ratio] 23.26 kg/m2 Eben Vo MD Work Phone: [facility] 02-06-2024 09:41-0500 Body weight 69.4 kg Eben oV MD Work Phone: [facility] 02-06-2024 09:41-0500 Diastolic blood pressure 60 mm[Hg] Eben Vo MD Work Phone: [facility] 02-06-2024 09:41-0500 Heart rate 95 /min Eben Vo MD Work Phone: [facility] 02-06-2024 09:41-0500 SaO2% (BldA) [Mass fraction] 94 % Eben Vo MD Work Phone: [facility] 02-06-2024 09:41-0500 Systolic blood pressure 120 mm[Hg] Eben Vo MD Work Phone: [facility] 02-05-2024 11:03-0500 Body temperature 98.2 [degF] Reji Rose DPM Work Phone: [facility] 02-05-2024 11:03-0500 Diastolic blood pressure 63 mm[Hg] Reji Rose DPM Work Phone: [facility] 02-05-2024 11:03-0500 Heart rate 47 /min Reji Rose DPM Work Phone: [facility] 02-05-2024 11:03-0500 Systolic blood pressure 126 mm[Hg] Reji Rose DPM Work Phone: [facility] 11-13-2023 09:38-0400 Body height 172.7 cm Ashley Cazares DO Work Phone: [facility] 11-13-2023 09:38-0400 Body mass index (BMI) [Ratio] 22.66 kg/m2 Ashley Loveae DO Work Phone: [facility] 11-13-2023 09:38-0400 Body weight 67.59 kg Ashley Thomae DO Work Phone: [facility] 11-13-2023 09:38-0400 Diastolic blood pressure 58 mm[Hg] Ashley Thomae DO Work Phone: [facility] 11-13-2023 09:38-0400 Heart rate 46 /min Ashley Thomae DO Work Phone: [facility] 11-13-2023 09:38-0400 Systolic blood pressure 99 mm[Hg] Ashley Thomae DO Work Phone: [facility] 08-28-2023 10:35-0400 Body temperature 98.1 [degF] Reji Rose DPM Work Phone: [facility] 08-28-2023 10:35-0400 Diastolic blood pressure 59 mm[Hg] Reji Rose DPM Work Phone: [facility] 08-28-2023 10:35-0400 Heart rate 46 /min Reji Rose DPM Work Phone: [facility] 08-28-2023 10:35-0400 Systolic blood pressure 100 mm[Hg] Reji Rose DPM Work Phone: [facility] 07-17-2023 15:48-0400 Body height 172.7 cm Ashley Thomae DO Work Phone: [facility] 07-17-2023 15:48-0400 Body mass index (BMI) [Ratio] 23.52 kg/m2 Ashley Thomae DO Work Phone: [facility] 07-17-2023 15:48-0400 Body weight 70.17 kg Ashley Thomae DO Work Phone: [facility] 06-05-2023 08:37-0400 Body mass index (BMI) [Ratio] 24.81 kg/m2 Ashley Thomae DO Work Phone: [facility] 06-05-2023 08:37-0400 Body weight 74.03 kg Ashley Cazares DO Work Phone: [facility] 05-29-2023 10:22-0400 Body temperature 97.9 [degF] Reji Rose DPM Work Phone: [facility] 05-29-2023 10:22-0400 Diastolic blood pressure 67 mm[Hg] Reji Rose DPM Work Phone: [facility] 05-29-2023 10:22-0400 Heart rate 48 /min Reji Rose DPM Work Phone: [facility] 05-29-2023 10:22-0400 Systolic blood pressure 110 mm[Hg] Reji Rose DPM Work Phone: [facility] 05-27-2023 09:09-0400 Body height 172.[address] Eben Vo Work Phone: [facility] 05-27-2023 09:09-0400 Body mass index (BMI) [Ratio] 24.6 kg/m2 Dr. Eben Vo Work Phone: [facility] 05-27-2023 09:09-0400 Body weight 73.[address] Eben Vo Work Phone: [facility] 05-27-2023 09:09-0400 Diastolic blood pressure 51 mm[Hg] Dr. Eben Vo Work Phone: [facility] 05-27-2023 09:09-0400 Heart rate 42 /min Dr. Eben Vo Work Phone: [facility] 05-27-2023 09:09-0400 Respiratory rate 16 /min Dr. Eben Vo Work Phone: [facility] 05-27-2023 09:09-0400 Systolic blood pressure 93 mm[Hg] Dr. Eben Vo Work Phone: [facility] 05-12-2023 11:33-0400 Body height 172.7 cm Eben Vo MD Work Phone: [facility] 05-12-2023 11:33-0400 Body mass index (BMI) [Ratio] 25.32 kg/m2 Eben Vo MD Work Phone: [facility] 05-12-2023 11:33-0400 Body weight 75.52 kg Eben Vo MD Work Phone: [facility] 05-12-2023 11:33-0400 Diastolic blood pressure 60 mm[Hg] Eben Vo MD Work Phone: [facility] 05-12-2023 11:33-0400 Heart rate 46 /min Eben Vo MD Work Phone: [facility] 05-12-2023 11:33-0400 SaO2% (BldA) [Mass fraction] 95 % Eben Vo MD Work Phone: [facility] 05-12-2023 11:33-0400 Systolic blood pressure 104 mm[Hg] Eben Vo MD Work Phone: [facility] 05-01-2023 08:45-0400 Diastolic blood pressure 55 mm[Hg] Reji Rose DPM Work Phone: [facility] 05-01-2023 08:45-0400 Heart rate 41 /min Reji Rose DPM Work Phone: [facility] 05-01-2023 08:45-0400 Systolic blood pressure 94 mm[Hg] Reji Rose DPM Work Phone: [facility] 05-01-2023 08:36-0400 Body temperature 97.9 [degF] Reji Rose DPM Work Phone: [facility] 04-03-2023 13:12-0500 Body temperature 97.11 [degF] Reji Rose DPM Work Phone: [facility] 04-03-2023 13:12-0500 Diastolic blood pressure 66 mm[Hg] Reji Rose DPM Work Phone: [facility] 04-03-2023 13:12-0500 Heart rate 54 /min Reji Rose DPM Work Phone: [facility] 04-03-2023 13:12-0500 Systolic blood pressure 111 mm[Hg] Reji Rose DPM Work Phone: [facility] 03-25-2023 10:35-0500 Body temperature 97.3 [degF] Dr. Dale Boone Work Phone: [facility] 03-25-2023 10:35-0500 Diastolic blood pressure 58 mm[Hg] Dr. Dale Boone Work Phone: [facility] 03-25-2023 10:35-0500 Heart rate 40 /min Dr. Dale Boone Work Phone: [facility] 03-25-2023 10:35-0500 Inhaled oxygen flow rate 96 L/min Dr. Dale Boone Work Phone: [facility] 03-25-2023 10:35-0500 Respiratory rate 16 /min Dr. Dale Boone Work Phone: [facility] 03-25-2023 10:35-0500 Systolic blood pressure 98 mm[Hg] Dr. Dale Boone Work Phone: [facility] 03-25-2023 10:30-0500 SaO2% (BldA) [Mass fraction] 94 % Dr. Dale Boone Work Phone: [facility] 03-25-2023 09:43-0500 Body height 172.[address] Dale Boone Work Phone: [facility] 03-25-2023 09:43-0500 Body mass index (BMI) [Ratio] 25.1 kg/m2 Dr. Dale Boone Work Phone: [facility] 03-25-2023 09:43-0500 Body weight [address] Dale Boone Work Phone: [facility] 03-19-2023 13:18-0500 Body height 172.[address] Dale Boone Work Phone: [facility] 03-19-2023 13:18-0500 Body mass index (BMI) [Ratio] 24.7 kg/m2 Dr. Dale Boone Work Phone: [facility] 03-19-2023 13:18-0500 Body weight 73.[address] Dale Boone Work Phone: 3(701)[phone] [place] [address] 03-19-2023 13:18-0500 Diastolic blood pressure 65 mm[Hg] Dr. Dale Boone Work Phone: [facility] 03-19-2023 13:18-0500 Respiratory rate 16 /min Dr. Dale Boone Work Phone: 8(790)[phone] [place] [address] 03-19-2023 13:18-0500 Systolic blood pressure 122 mm[Hg] Dr. Dale Boone Work Phone: 0(707)[phone] [place] [address] 03-18-2023 09:10-0500 Body height 172.7 cm Eben Vo MD Work Phone: [facility] 03-18-2023 09:10-0500 Body mass index (BMI) [Ratio] 25.18 kg/m2 Eben Vo MD Work Phone: [facility] 03-18-2023 09:10-0500 Body weight 75.12 kg Eben Vo MD Work Phone: [facility] 03-18-2023 09:10-0500 Heart rate 47 /min Eben Vo MD Work Phone: [facility] 03-18-2023 09:10-0500 SaO2% (BldA) [Mass fraction] 94 % Eben Vo MD Work Phone: [facility] 03-06-2023 11:36-0500 Body height 172.[address] Dale Boone Work Phone: [facility] 03-06-2023 11:30-0500 Body mass index (BMI) [Ratio] 24.7 kg/m2 Dr. Dale Boone Work Phone: [facility] 03-06-2023 11:30-0500 Body weight 73.[address] Dale Boone Work Phone: [facility] 03-06-2023 11:30-0500 Diastolic blood pressure 65 mm[Hg] Dr. Dale Boone Work Phone: [facility] 03-06-2023 11:30-0500 Heart rate 51 /min Dr. Dale Boone Work Phone: [facility] 03-06-2023 11:30-0500 Respiratory rate 18 /min Dr. Dale Boone Work Phone: [facility] 03-06-2023 11:30-0500 SaO2% (BldA) [Mass fraction] 97 % Dr. Dale Boone Work Phone: [facility] 03-06-2023 11:30-0500 Systolic blood pressure 112 mm[Hg] Dr. Dale Boone Work Phone: [facility] 01-16-2023 14:42-0500 Body height 172.7 cm Ashley Cazares DO Work Phone: [facility] 01-16-2023 14:42-0500 Body mass index (BMI) [Ratio] 25.03 kg/m2 Ashley Cazares DO Work Phone: [facility] 01-16-2023 14:42-0500 Body weight 74.66 kg Ashley Cazares DO Work Phone: [facility] 01-16-2023 14:42-0500 Diastolic blood pressure 60 mm[Hg] Ashley Cazares DO Work Phone: [facility] 01-16-2023 14:42-0500 Systolic blood pressure 100 mm[Hg] Ashley Cazares DO Work Phone: [facility] 01-07-2023 11:30-0500 Body height 172.[address] Dale Boone Work Phone: [facility] 01-07-2023 11:30-0500 Body weight 72.[address] Dale Boone Work Phone: [facility] 01-06-2023 07:15-0500 Body mass index (BMI) [Ratio] 24.1 kg/m2 Dr. Dale Boone Work Phone: [facility] 12-25-2022 10:38-0500 Body height 172.[address] Dale Boone Work Phone: [facility] 12-25-2022 10:31-0500 Body mass index (BMI) [Ratio] 24.1 kg/m2 Dr. Dale Boone Work Phone: [facility] 12-25-2022 10:31-0500 Body weight 72.[address] Dale Boone Work Phone: [facility] 12-25-2022 10:31-0500 Diastolic blood pressure 83 mm[Hg] Dr. Dale Boone Work Phone: [facility] 12-25-2022 10:31-0500 Heart rate 91 /min Dr. Dale Boone Work Phone: [facility] 12-25-2022 10:31-0500 Respiratory rate 18 /min Dr. Dale Boone Work Phone: [facility] 12-25-2022 10:31-0500 SaO2% (BldA) [Mass fraction] 95 % Dr. Dale Boone Work Phone: [facility] 12-25-2022 10:31-0500 Systolic blood pressure 118 mm[Hg] Dr. Dale Boone Work Phone: [facility] 12-13-2022 09:09-0400 Body height 172.7 cm Eben Vo MD Work Phone: [facility] 12-13-2022 09:09-0400 Body mass index (BMI) [Ratio] 25.7 kg/m2 Eben Vo MD Work Phone: [facility] 12-13-2022 09:09-0400 Body weight 76.66 kg Eben Vo MD Work Phone: [facility] 12-13-2022 09:09-0400 Diastolic blood pressure 62 mm[Hg] Eben Vo MD Work Phone: [facility] 12-13-2022 09:09-0400 Heart rate 96 /min Eben Vo MD Work Phone: [facility] 12-13-2022 09:09-0400 SaO2% (BldA) [Mass fraction] 94 % Eben Vo MD Work Phone: [facility] 12-13-2022 09:09-0400 Systolic blood pressure 106 mm[Hg] Eben Vo MD Work Phone: [facility] 12-04-2022 16:11-0400 Body temperature 97.7 [degF] Dr. Dale Boone Work Phone: [facility] 12-04-2022 16:11-0400 Diastolic blood pressure 71 mm[Hg] Dr. Dale Boone Work Phone: [facility] 12-04-2022 16:11-0400 Heart rate 65 /min Dr. Dale Boone Work Phone: [facility] 12-04-2022 16:11-0400 Respiratory rate 18 /min Dr. Dale Boone Work Phone: [facility] 12-04-2022 16:11-0400 SaO2% (BldA) [Mass fraction] 95 % Dr. Dale Boone Work Phone: [facility] 12-04-2022 16:11-0400 Systolic blood pressure 97 mm[Hg] Dr. Dale Boone Work Phone: [facility] 12-03-2022 22:25-0400 Body height 172.[address] Dale Boone Work Phone: [facility] 12-03-2022 22:25-0400 Body mass index (BMI) [Ratio] 24 kg/m2 Dr. Dale Boone Work Phone: [facility] 12-03-2022 22:25-0400 Body weight 71.[address] Dale Boone Work Phone: [facility] 12-03-2022 11:05-0400 Heart rate 72 /min Dr. Dale Boone Work Phone: [facility] 12-03-2022 09:57-0400 Body height 172.[address] Dale Boone Work Phone: [facility] 12-03-2022 09:57-0400 Body mass index (BMI) [Ratio] 24.6 kg/m2 Dr. Dale Boone Work Phone: [facility] 12-03-2022 09:57-0400 Body weight 73.[address] Dale Boone Work Phone: [facility] 12-03-2022 08:55-0400 Body temperature 97.7 [degF] Dr. Dale Boone Work Phone: [facility] 12-03-2022 08:55-0400 Diastolic blood pressure 82 mm[Hg] Dr. Dale Boone Work Phone: [facility] 12-03-2022 08:55-0400 Respiratory rate 16 /min Dr. Dale Boone Work Phone: [facility] 12-03-2022 08:55-0400 SaO2% (BldA) [Mass fraction] 96 % Dr. Dale Boone Work Phone: [facility] 12-03-2022 08:55-0400 Systolic blood pressure 121 mm[Hg] Dr. Dale Boone Work Phone: [facility] 12-03-2022 07:45-0400 Diastolic blood pressure 89 mm[Hg] Dr. Dale Boone Work Phone: [facility] 12-03-2022 07:45-0400 Heart rate 73 /min Dr. Dale Boone Work Phone: [facility] 12-03-2022 07:45-0400 Systolic blood pressure 114 mm[Hg] Dr. Dale Boone Work Phone: [facility] 12-03-2022 07:33-0400 Respiratory rate 17 /min Dr. Dale Boone Work Phone: [facility] 12-03-2022 07:33-0400 SaO2% (BldA) [Mass fraction] 97 % Dr. Dale Boone Work Phone: [facility] 12-03-2022 06:09-0400 Body height 172.[address] Dale Boone Work Phone: [facility] 12-03-2022 06:09-0400 Body mass index (BMI) [Ratio] 24.7 kg/m2 Dr. Dale Boone Work Phone: [facility] 12-03-2022 06:09-0400 Body temperature 97.6 [degF] Dr. Dale Boone Work Phone: [facility] 12-03-2022 06:09-0400 Body weight [address] Dale Boone Work Phone: [facility] 11-27-2022 13:44-0400 Body mass index (BMI) [Ratio] 25.4 kg/m2 Dr. Dale Boone Work Phone: [facility] 11-27-2022 13:44-0400 Body weight 71.[address] Dale Boone Work Phone: [facility] 11-27-2022 13:44-0400 Diastolic blood pressure 62 mm[Hg] Dr. Dale Boone Work Phone: [facility] 11-27-2022 13:44-0400 Heart rate 72 /min Dr. Dale Boone Work Phone: [facility] 11-27-2022 13:44-0400 Respiratory rate 18 /min Dr. Dale Boone Work Phone: [facility] 11-27-2022 13:44-0400 SaO2% (BldA) [Mass fraction] 96 % Dr. Dale Boone Work Phone: [facility] 11-27-2022 13:44-0400 Systolic blood pressure 101 mm[Hg] Dr. Dale Boone Work Phone: [facility] 11-01-2022 08:04-0400 Body height 172.7 cm Eben Vo MD Work Phone: [facility] 11-01-2022 08:04-0400 Body mass index (BMI) [Ratio] 24.77 kg/m2 Eben Vo MD Work Phone: [facility] 11-01-2022 08:04-0400 Body weight 73.89 kg Eben Vo MD Work Phone: [facility] 11-01-2022 08:04-0400 Diastolic blood pressure 72 mm[Hg] Eben Vo MD Work Phone: [facility] 11-01-2022 08:04-0400 Heart rate 58 /min Eben Vo MD Work Phone: [facility] 11-01-2022 08:04-0400 SaO2% (BldA) [Mass fraction] 95 % Eben Vo MD Work Phone: [facility] 11-01-2022 08:04-0400 Systolic blood pressure 120 mm[Hg] Eben Vo MD Work Phone: [facility] 10-31-2022 10:11-0400 Body temperature 98.29 [degF] Rejiheidi ColemanRose DPM Work Phone: [facility] 10-31-2022 10:11-0400 Diastolic blood pressure 66 mm[Hg] Rejiheidi ColemanRose DPM Work Phone: [facility] 10-31-2022 10:11-0400 Heart rate 77 /min Rejiheidi ColemanRose DPM Work Phone: [facility] 10-31-2022 10:11-0400 Systolic blood pressure 118 mm[Hg] Rejiheidi ColemanRose DPM Work Phone: [facility] 10-17-2022 08:01-0400 Body temperature 97.5 [degF] Reji Colemanmerman DPM Work Phone: [facility] 10-17-2022 08:01-0400 Diastolic blood pressure 77 mm[Hg] Reji Rose DPM Work Phone: [facility] 10-17-2022 08:01-0400 Heart rate 77 /min Rejiheidi ColemanRose DPM Work Phone: [facility] 10-17-2022 08:01-0400 Systolic blood pressure 116 mm[Hg] Rejiheidi ColemanRose DPM Work Phone: [facility] 10-15-2022 11:27-0400 Body height 172.7 cm Lavelle Boone MD Work Phone: [facility] 10-15-2022 11:27-0400 Body mass index (BMI) [Ratio] 24.57 kg/m2 Lavelle Boone MD Work Phone: [facility] 10-15-2022 11:27-0400 Body weight 73.3 kg Lavelle Boone MD Work Phone: [facility] 10-15-2022 11:27-0400 Diastolic blood pressure 64 mm[Hg] Lavelle Boone MD Work Phone: [facility] 10-15-2022 11:27-0400 Heart rate 82 /min Lavelle Boone MD Work Phone: [facility] 10-15-2022 11:27-0400 SaO2% (BldA) [Mass fraction] 95 % Lavelle Boone MD Work Phone: [facility] 10-15-2022 11:27-0400 Systolic blood pressure 108 mm[Hg] Lavelle Boone MD Work Phone: [facility] 09-16-2022 09:03-0400 Body height 167.[address] Dale Boone Work Phone: [facility] 09-16-2022 09:03-0400 Body mass index (BMI) [Ratio] 24.7 kg/m2 Dr. Dale Boone Work Phone: [facility] 09-16-2022 09:03-0400 Body weight 69.[address] Dale Boone Work Phone: [facility] 09-16-2022 09:03-0400 Diastolic blood pressure 66 mm[Hg] Dr. Dale Boone Work Phone: [facility] 09-16-2022 09:03-0400 Heart rate 62 /min Dr. Dale Boone Work Phone: [facility] 09-16-2022 09:03-0400 Respiratory rate 16 /min Dr. Dale Boone Work Phone: [facility] 09-16-2022 09:03-0400 SaO2% (BldA) [Mass fraction] 96 % Dr. Dale Boone Work Phone: [facility] 09-16-2022 09:03-0400 Systolic blood pressure 124 mm[Hg] Dr. Dale Boone Work Phone: [facility] 08-01-2022 08:08-0400 Body temperature 98.4 [degF] Reji Rose DPM Work Phone: [facility] 08-01-2022 08:08-0400 Diastolic blood pressure 68 mm[Hg] Reji Rose DPM Work Phone: [facility] 08-01-2022 08:08-0400 Heart rate 55 /min Rejiheidi ColemanRose DPM Work Phone: [facility] 08-01-2022 08:08-0400 Systolic blood pressure 112 mm[Hg] Reji Rose DPM Work Phone: [facility] 05-09-2022 11:00-0400 Body temperature 98.6 [degF] Reji Colemanmerman DPM Work Phone: [facility] 05-09-2022 11:00-0400 Diastolic blood pressure 62 mm[Hg] Rejihedii ColemanRose DPM Work Phone: [facility] 05-09-2022 11:00-0400 Heart rate 52 /min Reji Rose DPM Work Phone: [facility] 05-09-2022 11:00-0400 Systolic blood pressure 114 mm[Hg] Rejiheidi ColemanRose DPM Work Phone: [facility] 03-08-2022 08:58-0500 Body height 172.72 cm Eben Robertscel Work Phone: [employer] [facility] Work Phone: 03-08-2022 08:58-0500 Body mass index (BMI) [Ratio] 24.34 kg/m2 Eben Mathews Stencel Work Phone: [facility] [employer] [facility] Work Phone: 03-08-2022 08:58-0500 Body surface area Derived from formula 1.86 m2 Eben Mathews Stencel Work Phone: [facility] [employer] [facility] Work Phone: 03-08-2022 08:58-0500 Body weight 72.6 kg Eben Robertscel Work Phone: [facility] [employer] [facility] Work Phone: 03-08-2022 08:58-0500 Diastolic blood pressure 80 mm[Hg] Eben D Stencel Work Phone: [facility] Work Phone: 03-08-2022 08:58-0500 Heart rate 56 /min Eben D Stencel Work Phone: [facility] Work Phone: 03-08-2022 08:58-0500 SaO2% (BldA) [Mass fraction] 97 % Eben D Stencel Work Phone: [facility] Work Phone: 03-08-2022 08:58-0500 Systolic blood pressure 140 mm[Hg] Eben D Stencel Work Phone: [facility] Work Phone: 01-31-2022 08:29-0500 Body temperature 98.8 [degF] Reji Rose DPM Work Phone: [facility] 01-31-2022 08:29-0500 Diastolic blood pressure 75 mm[Hg] Reji Rose DPM Work Phone: [facility] 01-31-2022 08:29-0500 Heart rate 61 /min Reji Rose DPM Work Phone: [facility] 01-31-2022 08:29-0500 Systolic blood pressure 133 mm[Hg] Reji Rose DPM Work Phone: [facility] 01-03-2022 08:33-0500 Body temperature 98.49 [degF] Reji Rose DPM Work Phone: [facility] 01-03-2022 08:33-0500 Diastolic blood pressure 67 mm[Hg] Reji Rose DPM Work Phone: [facility] 01-03-2022 08:33-0500 Heart rate 48 /min Reji Rose DPM Work Phone: [facility] 01-03-2022 08:33-0500 Systolic blood pressure 121 mm[Hg] Reji Rose DPM Work Phone: [facility] 12-05-2021 08:33-0400 Body height 167.[address] Dale Boone Work Phone: [facility] Work Phone: 12-05-2021 08:33-0400 Body mass index (BMI) [Ratio] 26.4 kg/m2 Dr. Dale Boone Work Phone: [facility] Work Phone: 12-05-2021 08:33-0400 Body weight 74.[address] Dale Boone Work Phone: [facility] Work Phone: 12-05-2021 08:33-0400 Diastolic blood pressure 63 mm[Hg] Dr. Dale Boone Work Phone: [facility] Work Phone: 12-05-2021 08:33-0400 Heart rate 54 /min Dr. Dale Boone Work Phone: [facility] Work Phone: 12-05-2021 08:33-0400 Respiratory rate 18 /min Dr. Dale Boone Work Phone: [facility] Work Phone: 12-05-2021 08:33-0400 SaO2% (BldA) [Mass fraction] 95 % Dr. Dale Boone Work Phone: [facility] Work Phone: 12-05-2021 08:33-0400 Systolic blood pressure 134 mm[Hg] Dr. Dale Boone Work Phone: [facility] Work Phone: 09-05-2021 08:37-0400 Body mass index (BMI) [Ratio] 25 kg/m2 Dr. Dale Boone Work Phone: [facility] Work Phone: 09-05-2021 08:37-0400 Body weight 70.[address] Dale Boone Work Phone: [facility] Work Phone: 09-05-2021 08:37-0400 Diastolic blood pressure 71 mm[Hg] Dr. Dale Boone Work Phone: [facility] Work Phone: 09-05-2021 08:37-0400 Heart rate 45 /min Dr. Dale Boone Work Phone: [facility] Work Phone: 09-05-2021 08:37-0400 Respiratory rate 18 /min Dr. Dale Boone Work Phone: [facility] Work Phone: 09-05-2021 08:37-0400 SaO2% (BldA) [Mass fraction] 96 % Dr. Dale Boone Work Phone: [facility] Work Phone: 09-05-2021 08:37-0400 Systolic blood pressure 134 mm[Hg] Dr. Dale Boone Work Phone: [facility] Work Phone: 08-02-2021 08:46-0400 Body temperature 98.01 [degF] Reji Rose DPM Work Phone: [facility] 08-02-2021 08:46-0400 Diastolic blood pressure 64 mm[Hg] Reji Rose DPM Work Phone: [facility] 08-02-2021 08:46-0400 Heart rate 57 /min Reji Rose DPM Work Phone: [facility] 08-02-2021 08:46-0400 Systolic blood pressure 107 mm[Hg] Reji Rose DPM Work Phone: [facility] 07-30-2021 10:04-0400 Body height 167.[address] Eben Vo Work Phone: [facility] Work Phone: 07-30-2021 10:04-0400 Body mass index (BMI) [Ratio] 25.8 kg/m2 Dr. Eben Vo Work Phone: [facility] Work Phone: 07-30-2021 10:04-0400 Body weight 72.[address] Eben Vo Work Phone: [facility] Work Phone: 07-30-2021 10:04-0400 Diastolic blood pressure 72 mm[Hg] Dr. Eben Vo Work Phone: [facility] Work Phone: 07-30-2021 10:04-0400 Heart rate 55 /min Dr. Eben Vo Work Phone: [facility] Work Phone: 07-30-2021 10:04-0400 Respiratory rate 18 /min Dr. Eben Vo Work Phone: [facility] Work Phone: 07-30-2021 10:04-0400 SaO2% (BldA) [Mass fraction] 95 % Dr. Eben Vo Work Phone: [facility] Work Phone: 07-30-2021 10:04-0400 Systolic blood pressure 110 mm[Hg] Dr. Eben Vo Work Phone: [facility] Work Phone: 07-12-2021 08:15-0400 Body temperature 97.9 [degF] Reji Rose DPM Work Phone: [facility] 07-12-2021 08:15-0400 Diastolic blood pressure 60 mm[Hg] Reji Rose DPM Work Phone: [facility] 07-12-2021 08:15-0400 Heart rate 44 /min Reji Raphaelman DPM Work Phone: [facility] 07-12-2021 08:15-0400 Systolic blood pressure 108 mm[Hg] Reji Rose DPM Work Phone: [facility] 06-21-2021 08:18-0400 Body temperature 98.01 [degF] Reji Colemanmerman DPM Work Phone: [facility] 06-21-2021 08:18-0400 Diastolic blood pressure 70 mm[Hg] Reji Colemanmerman DPM Work Phone: [facility] 06-21-2021 08:18-0400 Heart rate 77 /min Reji Colemanmerman DPM Work Phone: [facility] 06-21-2021 08:18-0400 Systolic blood pressure 113 mm[Hg] Reji Raphaelman DPM Work Phone: [facility] 2021 08:45-0400 Body temperature 97.7 [degF] Reji Colemanmerman DPM Work Phone: [facility] 2021 08:45-0400 Diastolic blood pressure 80 mm[Hg] Rejiheidi ColemanRose DPM Work Phone: [facility] 2021 08:45-0400 Heart rate 67 /min Reji Raphaelman DPM Work Phone: [facility] 2021 08:45-0400 Systolic blood pressure 128 mm[Hg] Rejiheidi ColemanRose DPM Work Phone: [facility] 05-10-2021 08:36-0400 Diastolic blood pressure 74 mm[Hg] Reji Rose DPM Work Phone: [facility] 05-10-2021 08:36-0400 Heart rate 50 /min Reji Colemanmerman DPM Work Phone: [facility] 05-10-2021 08:36-0400 Systolic blood pressure 123 mm[Hg] Reji Rose DPM Work Phone: [facility] 05-10-2021 08:31-0400 Body temperature 98.1 [degF] Reji Rose DPM Work Phone: [facility] 04-19-2021 14:28-0500 Body temperature 98.2 [degF] Reji Rose DPM Work Phone: [facility] 04-19-2021 14:28-0500 Diastolic blood pressure 68 mm[Hg] Reji Rose DPM Work Phone: [facility] 04-19-2021 14:28-0500 Heart rate 69 /min Reji Rose DPM Work Phone: [facility] 04-19-2021 14:28-0500 Systolic blood pressure 132 mm[Hg] Reji Rose DPM Work Phone: [facility] 04-05-2021 08:29-0500 Body temperature 97.9 [degF] Reji Rose DPM Work Phone: [facility] 04-05-2021 08:29-0500 Diastolic blood pressure 69 mm[Hg] Reji Rose DPM Work Phone: [facility] 04-05-2021 08:29-0500 Heart rate 58 /min Reji Rose DPM Work Phone: [facility] 04-05-2021 08:29-0500 Systolic blood pressure 117 mm[Hg] Rjei Rose DPM Work Phone: [facility] 03-08-2021 08:26-0500 Body height 172.72 cm Eben Vo Work Phone: [facility] Work Phone: 03-08-2021 08:26-0500 Body mass index (BMI) [Ratio] 25.26 kg/m2 Eben Vo Work Phone: [facility] Work Phone: 03-08-2021 08:26-0500 Body surface area Derived from formula 1.89 m2 Eben Robertscel Work Phone: [facility] Work Phone: 03-08-2021 08:26-0500 Body temperature 97.8 [degF] Eben Robertscel Work Phone: [facility] Work Phone: 03-08-2021 08:26-0500 Body weight 75.36 kg Eben Robertscel Work Phone: [facility] Work Phone: 03-08-2021 08:26-0500 Diastolic blood pressure 64 mm[Hg] Eben Robertscel Work Phone: [facility] Work Phone: 03-08-2021 08:26-0500 Heart rate 60 /min Eben Robertscel Work Phone: [facility] Work Phone: 03-08-2021 08:26-0500 SaO2% (BldA) [Mass fraction] 98 % Eben Robertscel Work Phone: [facility] Work Phone: 03-08-2021 08:26-0500 Systolic blood pressure 112 mm[Hg] Eben Robertscel Work Phone: [facility] Work Phone: 02-22-2021 07:59-0500 Body temperature 98.01 [degF] Reji Rose DPM Work Phone: [facility] 02-22-2021 07:59-0500 Diastolic blood pressure 70 mm[Hg] Reji Rose DPM Work Phone: [facility] 02-22-2021 07:59-0500 Heart rate 67 /min Reji Rose DPM Work Phone: [facility] 02-22-2021 07:59-0500 Systolic blood pressure 134 mm[Hg] Reji Rose DPM Work Phone: [facility] 01-18-2021 18:06-0500 Body height 172.7 cm Eben Stencel Other Phone: [facility] 01-18-2021 18:06-0500 Body temperature 98.24 [degF] Eben Stencel Other Phone: [facility] 01-18-2021 18:06-0500 Body weight 69.1 kg Eben Stencel Other Phone: [facility] 01-18-2021 18:06-0500 Diastolic blood pressure 76 mm[Hg] Eben Stencel Other Phone: [facility] 01-18-2021 18:06-0500 Heart rate 67 /min Eben Stencel Other Phone: [facility] 01-18-2021 18:06-0500 Respiratory rate 18 /min Eben Stencel Other Phone: [facility] 01-18-2021 18:06-0500 SaO2% (BldA) [Mass fraction] 95 % Eben Stencel Other Phone: [facility] 01-18-2021 18:06-0500 Systolic blood pressure 152 mm[Hg] Eben Stencel Other Phone: [facility] 12-21-2020 08:16-0400 Body temperature 98.1 [degF] Reji Rose DPM Work Phone: [facility] 12-21-2020 08:16-0400 Diastolic blood pressure 68 mm[Hg] Reji Rose DPM Work Phone: [facility] 12-21-2020 08:16-0400 Heart rate 60 /min Reji Rose DPM Work Phone: [facility] 12-21-2020 08:16-0400 Systolic blood pressure 120 mm[Hg] Reji Rose DPM Work Phone: [facility] 11-23-2020 09:04-0400 Body temperature 98.4 [degF] Reji Rose DPM Work Phone: [facility] 11-23-2020 09:04-0400 Diastolic blood pressure 56 mm[Hg] Reji Rose DPM Work Phone: [facility] 11-23-2020 09:04-0400 Heart rate 65 /min Reji Rose DPM Work Phone: [facility] 11-23-2020 09:04-0400 Systolic blood pressure 118 mm[Hg] Reji Rose DPM Work Phone: [facility] 07-19-2020 23:35-0400 Diastolic blood pressure 70 mm[Hg] Eben Stencel Other Phone: [facility] 07-19-2020 23:35-0400 Heart rate 62 /min Eben Stencel Other Phone: [facility] 07-19-2020 23:35-0400 Respiratory rate 16 /min Eben Stencel Other Phone: [facility] 07-19-2020 23:35-0400 SaO2% (BldA) [Mass fraction] 97 % Eben Stencel Other Phone: [facility] 07-19-2020 23:35-0400 Systolic blood pressure 106 mm[Hg] Eben Stencel Other Phone: [facility] 07-19-2020 18:48-0400 Body height 175.2 cm Eben Stencel Other Phone: [facility] 07-19-2020 18:48-0400 Body temperature 97.88 [degF] Eben Stencel Other Phone: [facility] 07-19-2020 18:48-0400 Body weight 69.1 kg Eben Stencel Other Phone: [facility] 02-18-2019 17:04-0500 BMI (Body Mass Index) 26.03 kg/m2 Lavelle Boone [facility] Work Phone: 02-18-2019 17:04-0500 Body Temperature 97.3 [degF] Lavelle Boone [facility] Work Phone: 02-18-2019 17:04-0500 Body weight 75.39 kg Lavelle Boone [facility] Work Phone: 02-18-2019 17:04-0500 BP Diastolic 62 mm[Hg] Lavelle Boone -[facility] Work Phone: 02-18-2019 17:04-0500 BP Systolic 106 mm[Hg] Lavelle Boone [facility] Work Phone: 02-18-2019 17:04-0500 BSA (Body Surface Area) 1.87 m2 Lavelle Boone -[facility] Work Phone: 02-18-2019 17:04-0500 Height 170.18 cm Lavelle Boone [facility] Work Phone: 02-18-2019 17:04-0500 Pulse (Heart Rate) 46 /min Lavelle Boone [facility] Work Phone: 02-18-2019 17:04-0500 Pulse Oximetry 97 % Lavelle Boone -[facility] Work Phone: 01-08-2019 10:09-0500 BMI (Body Mass Index) 25.8 kg/m2 Lavelle Boone -[facility] Work Phone: 01-08-2019 10:09-0500 Body weight 76.98 kg Lavelle Boone [facility] Work Phone: 01-08-2019 10:09-0500 BP Diastolic 60 mm[Hg] Lavelle Boone [facility] Work Phone: 01-08-2019 10:09-0500 BP Systolic 106 mm[Hg] Grantyulisa Boone -[employer] [facility] Work Phone: 01-08-2019 10:09-0500 BSA (Body Surface Area) 1.91 m2 Grantyulisa Boone [employer] [facility] Work Phone: 01-08-2019 10:09-0500 Height 172.72 cm Grantyulisa Boone [employer] [facility] Work Phone: 01-08-2019 10:09-0500 Pulse (Heart Rate) 48 /min Andriymary ellen Boone [employer] [facility] Work Phone: Encounters Encounter Date Encounter Type Care Provider Facility Start: 07-21-2024 ambulatory Nimo SHARMA Facility:[facility] Start: 07-16-2024 ambulatory Nimo SHARMA Facility:[facility] Start: 07-08-2024 End: 07-08-2024 ambulatory EBEN LUNA [facility] Start: 06-15-2024 End: 06-15-2024 ambulatory Eben Vo Facility:[facility] Start: 06-08-2024 ambulatory Fitz Ramsey [facility] Start: 06-08-2024 End: 06-08-2024 ambulatory Louie Brown Facility:[facility] Start: 06-04-2024 End: 06-04-2024 ambulatory Eben Vo Facility:[facility] Start: 06-03-2024 End: 06-03-2024 ambulatory Eben Vo Facility:[facility] Start: 05-27-2024 End: 05-27-2024 ambulatory ABELARDO RIVERA Facility:[facility] Start: 05-27-2024 End: 05-27-2024 Office consultation new/estab patient 60 min Lauren Walters MD Work Phone: Ophthalmology Comment on above: Open angle with bord lasha findings and low glaucoma risk in both eyes (Primary Dx) Start: 05-25-2024 End: 05-25-[address] Eben Vo MD Work Phone: [facility] Work Phone: Start: 05-25-2024 End: 05-25-2024 Patient encounter procedure Nimo Loera PA -Pulmonary Services/Neurology Work Phone: Start: 05-25-2024 End: 05-25-2024 ambulatory Eben Vo Facility:[facility] Start: 05-21-2024 End: 05-21-2024 Patient encounter procedure Valerie Hooper [facility] Work Phone: Start: 05-21-2024 End: 05-21-[address] Eben Vo MD Work Phone: [facility] Work Phone: Start: 05-20-2024 End: 05-20-2024 Patient encounter procedure Reji Rose DPM Work Phone: [facility] Comment on above: Pain in both feet (P rimary Dx); Verrucae vulgaris Start: 05-20-2024 End: 05-21-2024 ambulatory EBEN LUNA [facility] Start: 05-07-2024 End: 05-07-2024 Assay of hemosiderin, quant Eben Vo MD Work Phone: [facility] Work Phone: Start: 05-07-2024 End: 05-07-2024 Patient encounter procedure Eben Vo MD Work Phone: [facility] Comment on above: Routine general medi mary examination at health care facility (Primary Dx); Acquired hypothyroidism; Congestive heart failure, unspecified HF chronicity, unspecified heart failure type Start: 05-07-2024 End: 05-07-2024 ambulatory EBEN VO [facility] Start: 04-29-2024 End: 04-29-2024 Patient encounter procedure Reji Rose DPM Work Phone: [facility] Comment on above: Verrucae vulgaris (P rimary Dx); Pain in both feet Start: 04-29-2024 End: 04-29-2024 ambulatory EBEN VO [facility] Start: 04-12-2024 End: 04-12-2024 Office outpatient visit 15 minutes Reji Rose DPM Work Phone: [facility] Comment on above: Right foot pain (Kavita lauren Dx); Onychomycosis; Callus of foot; Pain of toes of both feet [M79.674, M79.675]; 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 Nish salguero MD -[facility] Start: 02-26-2024 End: 02-26-2024 Patient encounter procedure Bin Pittman PA-C -Cardiovascular Services Work Phone: Start: 02-26-2024 Encounter for other preprocedural examination Elizabeth Tabor [facility] Start: 02-26-2024 End: 02-26-2024 ambulatory Eben Vo Facility:[facility] Start: 02-24-2024 Non-patient / Non-visit Dr. Lana Young MD -[facility] Work Phone: Start: 02-23-2024 Non-patient / Non-visit Dr. Elizabeth Tabor MD -[facility] Work Phone: Start: 02-23-2024 End: 02-24-2024 ambulatory Eben Vo Facility:[facility] Start: 02-23-2024 End: 02-24-2024 Evaluation and management of inpatient Dr. Myles Iraheta MD -Medical Surgical 3 Work Phone: Start: 02-20-2024 End: 02-20-2024 ambulatory ABELARDO RIVERA Facility:[facility] Start: 02-20-2024 End: 02-20-2024 Patient encounter procedure Abelardo Rivera MD Work Phone: Ophthalmology Comment on above: Glaucoma suspect of both eyes (Primary Dx); Optic cupping of both eyes; Pseudophakia of both eyes; High myopia, both eyes; Atrial fibrillation, unspecified type (HCC); Essential hypertension; Benign prostatic hyperplasia without lower urinary tract symptoms Start: 02-09-2024 End: 02-09-2024 ambulatory ABELARDO RIVERA Facility:[facility] Start: 02-09-2024 End: 02-09-2024 Patient encounter procedure Abelardo Rivera MD Work Phone: Ophthalmology Comment on above: Glaucoma suspect of both eyes (Primary Dx); Optic cupping of both eyes; Pseudophakia of both eyes; High myopia, both eyes; Atrial fibrillation, unspecified type (HCC); Essential hypertension; Benign prostatic hyperplasia without lower urinary tract symptoms Start: 02-06-2024 End: 02-06-2024 Office outpatient visit 25 minutes Eben Vo MD Work Phone: [facility] Comment on above: Primary insomnia (Pr imary Dx); Acquired hypothyroidism Start: 02-06-2024 End: 02-06-2024 ambulatory EBEN Bisi [facility] Ambulatory Start: 02-05-2024 End: 02-05-2024 Office outpatient visit 15 minutes Reji Rose DPM Work Phone: [facility] Comment on above: Onychomycosis (Prima ry Dx); Callus of foot; Ankle instability, left; Chronic toe pain, bilateral Start: 02-05-2024 End: 02-05-2024 ambulatory EBEN LUNA [facility] Start: 01-29-2024 End: 01-29-[address] Myles Iraheta MD -Cat Scan, [facility] Work Phone: Start: 01-29-2024 End: 01-29-2024 ambulatory Eben Vo Facility:[facility] Start: 12-16-2023 End: 12-16-2023 ambulatory EBEN Mathews [facility] Start: 11-28-2023 [facility] Start: 11-28-2023 End: 11-28-2023 ambulatory [facility] Facility:[facility] Start: 11-20-2023 End: 11-20-2023 ambulatory Eben Vo Facility:[facility] Start: 11-19-2023 ambulatory [facility] Start: 11-19-2023 End: 11-19-2023 ambulatory [facility] Facility:[facility] Start: 11-13-2023 End: 11-13-2023 ambulatory [facility] Start: 11-13-2023 End: 11-13-2023 ambulatory [facility] Start: 11-13-2023 End: 11-13-2023 Office outpatient visit 15 minutes Ashley Loveae DO Work Phone: [facility] Comment on above: Abdominal bloating ( Primary Dx); Small intestinal bacterial overgrowth; Flatulence/gas pain/belching Start: 09-16-2023 End: 09-16-2023 ambulatory [facility] Start: 09-16-2023 End: 09-16-2023 ambulatory [facility] Ambulatory Start: 09-16-2023 End: 09-16-2023 Encounter for general adult medical examination without abnormal findings [facility] Amb[facility] Start: 08-28-2023 End: 08-28-2023 Patient encounter procedure Reji Rose DPKary Work Phone: [facility] Comment on above: Toe pain, bilateral [M79.674, M79.675] (Primary Dx); Callus of foot; Onychomycosis Start: 08-28-2023 End: 08-28-2023 ambulatory EBEN LUNA [facility] Start: 07-17-2023 End: 07-17-2023 Office outpatient visit 15 minutes Ashley Cazares DO Work Phone: [facility] Comment on above: Small intestinal abraham terial overgrowth (Primary Dx) Start: 07-17-2023 End: 07-17-2023 ambulatory [facility] Start: 06-06-2023 End: 06-06-2023 ambulatory [facility] Start: 06-05-2023 End: 06-05-2023 Office outpatient visit 25 minutes Ashley Cazares DO Work Phone: [facility] Comment on above: Abdominal bloating ( Primary Dx); Small intestinal bacterial overgrowth (SIBO); Dyspepsia Start: 06-05-2023 End: 06-05-2023 ambulatory ASHLEY CAZARES [facility] Start: 05-29-2023 End: 05-29-2023 Office outpatient visit 15 minutes Reji Rose DPM Work Phone: [facility] Comment on above: Toe pain, bilateral [M79.674, M79.675] (Primary Dx); Callus of foot; Onychomycosis [B35.1]; Ankle instability, left Start: 05-27-2023 End: 05-27-[address] Eben Vo Work Phone: [facility] Work Phone: Start: 05-23-2023 Non-patient / Non-visit Dr. Monisha Vo Work Phone: [facility] Start: 05-23-2023 End: 05-23-[address] Eben Vo Work Phone: [facility] Work Phone: Start: 05-23-2023 End: 05-23-[address] Eben Vo Work Phone: [facility]-Cardiovascula r Services Work Phone: Start: 05-12-2023 End: 05-12-2023 Office outpatient visit 15 minutes Eben Vo MD Work Phone: [facility] Comment on above: Flatulence/gas pain/ belching (Primary Dx) Start: 05-01-2023 End: 05-01-2023 ambulatory EBEN VO [facility] Start: 05-01-2023 End: 05-01-2023 Office outpatient visit 15 minutes Reji Rose DPKary Work Phone: [facility] Comment on above: Callus of foot (Prim alton Dx); Exostosis of left foot; Ankle instability, left Start: 04-18-2023 End: 04-18-[address] Dale Boone Work Phone: [facility] Work Phone: Start: 04-18-2023 End: 04-18-[address] Dale Boone Work Phone: [facility] Work Phone: Start: 04-07-2023 End: 04-07-[address] Dale Boone Work Phone: [facility] Work Phone: Start: 04-03-2023 End: 04-03-2023 Office outpatient visit 15 minutes Reji Rose DPM Work Phone: [facility] Comment on above: Callus of foot (Prim alton Dx); Exostosis of left foot; Heel spur, right; Onychomycosis [B35.1]; Exostosis of right foot; Toe pain, bilateral [M79.674, M79.675] Start: 03-25-2023 Non-patient / Non-visit Dr. Myrna Boone Work Phone: [facility] Start: 03-25-2023 End: 03-25-2023 Admission to same day surgery center Dr. Dale Boone Work Phone: [facility]-Endoscopy Work Phone: Start: 03-19-2023 End: 03-19-[address] Dale Boone Work Phone: [facility] Work Phone: Start: 03-19-2023 End: 03-19-[address] Dale Boone Work Phone: [facility] Work Phone: Start: 03-19-2023 End: 03-19-[address] Dale Boone Work Phone: [facility]-Laboratory Work Phone: Start: 03-18-2023 End: 03-18-2023 Assay of hemosiderin, quant Eben Vo MD Work Phone: [facility] Work Phone: Start: 03-18-2023 End: 03-18-2023 Office outpatient visit 25 minutes Eben Vo MD Work Phone: [facility] Comment on above: Routine general medi mary examination at health care facility (Primary Dx); Longstanding persistent atrial fibrillation (CMS/HCC); Dyspepsia; Non-ischemic cardiomyopathy (CMS/HCC) Start: 03-06-2023 End: 03-06-[address] Dale Boone Work Phone: [facility] Work Phone: Start: 03-06-2023 End: 03-06-[address] Dale Boone Work Phone: [facility] Work Phone: Start: 02-27-2023 Non-patient / Non-visit Dr. Myrna Boone Work Phone: [facility] Start: 02-27-2023 End: 02-27-[address] Dale Boone Work Phone: [facility] Work Phone: Start: 02-27-2023 End: 02-27-[address] Dale Boone Work Phone: [facility]-Cardiovascula [facility] Services Work Phone: Start: 02-12-2023 End: 02-12-2023 Subsequent hospital visit by physician Homer Patterson 1 [facility] Comment on above: Abdominal bloating Start: 02-12-2023 End: 02-12-2023 ambulatory EBEN VO [facility] Start: 01-24-2023 End: 01-24-[address] Dale Boone Work Phone: [facility] Work Phone: Start: 01-24-2023 End: 01-24-[address] Dale Boone Work Phone: [facility]Labor[facility] Work Phone: Start: 01-17-2023 End: 01-17-2023 Subsequent hospital visit by physician Homer Willett 2 [facility] Comment on above: Abdominal bloating Start: 01-17-2023 End: 01-17-2023 ambulatory ASHLEY CAZARES [facility] Start: 01-16-2023 End: 01-16-2023 Office outpatient visit 25 minutes Ashley Cazares DO Work Phone: [facility] Comment on above: Abdominal bloating ( Primary Dx) Start: 01-14-2023 End: 01-14-[address] Dale Boone Work Phone: [facility] Work Phone: Start: 01-07-2023 Non-patient / Non-visit Dr. Myrna Boone Work Phone: [facility] Start: 01-07-2023 End: 01-07-2023 Admission to same day surgery center Dr. Dale Boone Work Phone: [facility]-Field Sales Executive/Special Procedures Work Phone: Start: 12-25-2022 End: 12-25-[address] Dale Boone Work Phone: [facility] Work Phone: Start: 12-20-2022 End: 12-20-[address] Dale Boone Work Phone: [facility] Work Phone: Start: 12-20-2022 End: 12-20-[address] Dale Boone Work Phone: [facility]-Laboratory Work Phone: Start: 12-17-2022 Non-patient / Non-visit Dr. Myrna Boone Work Phone: [facility] Start: 12-13-2022 End: 12-13-2022 Office outpatient visit 25 minutes Eben Vo MD Work Phone: [facility] Comment on above: Non-ischemic cardiom yopathy (CMS/HCC) (Primary Dx); Longstanding persistent atrial fibrillation (CMS/HCC); Dyspepsia Start: 12-04-2022 End: 12-04-[address] Dale Boone Work Phone: [facility] Work Phone: Start: 12-04-2022 End: 12-04-[address] Dale Boone Work Phone: [facility]-Cardiovascula r Services Work Phone: Start: 12-04-2022 Non-patient / Non-visit Dr. Myrna Boone Work Phone: [facility] Work Phone: Start: 12-04-2022 Non-patient / Non-visit Dr. Myrna Boone Work Phone: [facility] Start: 12-03-2022 Non-patient / Non-visit Dr. Myrna Boone Work Phone: [facility] Start: 12-03-2022 End: 12-04-2022 Evaluation and management of inpatient Dr. Dale Boone Work Phone: [facility] Work Phone: Start: 11-27-2022 End: 11-27-[address] Dale Boone Work Phone: [facility] Work Phone: Start: 11-27-2022 End: 11-27-[address] Dale Boone Work Phone: [facility] Work Phone: Start: 11-21-2022 Non-patient / Non-visit Dr. Myrna Boone Work Phone: [facility] Work Phone: Start: 11-20-2022 Non-patient / Non-visit Dr. Myrna Boone Work Phone: [facility] Start: 11-20-2022 End: 11-20-[address] Dale Boone Work Phone: [facility]Cardi[facility] Work Phone: Start: 11-15-2022 End: 11-15-[address] Dlae Boone Work Phone: [facility] Work Phone: Start: 11-15-2022 End: 11-15-[address] Dale Boone Work Phone: [facility] Work Phone: Start: 11-07-2022 End: 11-07-[address] Dale Boone Work Phone: [facility] Work Phone: Start: 11-07-2022 End: 11-07-[address] Dale Boone Work Phone: [facility] Work Phone: Start: 11-01-2022 End: 11-01-2022 Office outpatient visit 25 minutes Eben Vo MD Work Phone: [facility] Comment on above: Longstanding persist ent atrial fibrillation (CMS/HCC) (Primary Dx); Dyspepsia Start: 10-31-2022 End: 10-31-2022 Office outpatient visit 10 minutes Reji Rose DPM Work Phone: [facility] Comment on above: Corns (Primary Dx); Verrucae vulgaris; Exostosis Start: 10-17-2022 End: 10-17-2022 Patient encounter procedure Reji Rose DPM Work Phone: [facility] Comment on above: Verrucae vulgaris (P rimary Dx); Pain in left foot Start: 10-15-2022 End: 10-15-2022 Office outpatient visit 15 minutes Lavelle Boone MD Work Phone: [facility] Comment on above: Chest wall pain (Kavita lauren Dx); Longstanding persistent atrial fibrillation (CMS/HCC); Dyspepsia Start: 09-16-2022 End: 09-16-[address] Dale Boone Work Phone: [facility] Work Phone: Start: 08-01-2022 End: 08-01-2022 Office outpatient visit 10 minutes Reji HEADM Work Phone: [facility] Comment on above: Callus of foot (Prim alton Dx); Acquired left hindfoot varus; Exostosis; Pain of toe of right foot [M79.674]; Onychomycosis [B35.1] Start: 05-09-2022 End: 05-09-2022 Office outpatient visit 10 minutes Reji HEADM Work Phone: [facility] Comment on above: Exostosis of left fo ot (Primary Dx); Callus of foot Start: 03-08-2022 Adv care pln tlkd & alt dcsn maker docd Eben Vo Work Phone: [facility] Work Phone: Start: 02-21-2022 Chart Update Eben jason Work Phone: [facility] Work Phone: Start: 01-31-2022 End: 01-31-2022 Patient encounter procedure Reji Rose DPM Work Phone: [facility] Comment on above: Onychomycosis (Prima ry Dx); Verrucae vulgaris; Pain in toe of right foot; Pain in right foot [M79.671 (ICD-10-CM)] Start: 01-03-2022 End: 01-03-2022 Office outpatient visit 10 minutes Reji Rose DPM Work Phone: [facility] Comment on above: Onychomycosis (Prima ry Dx); Verrucae vulgaris; Pain of toe of right foot Start: 12-13-2021 End: 12-13-[address] Dale Boone Work Phone: [facility] Work Phone: Start: 12-13-2021 End: 12-13-[address] Dale Boone Work Phone: [facility] Start: 12-05-2021 End: 12-05-[address] Dale Boone Work Phone: [facility] Start: 09-27-2021 AUDIT Eben jason Work Phone: [facility] Work Phone: Start: 09-25-2021 End: 09-25-[address] Eben Vo Facility:[id number] Start: 09-05-2021 End: 09-05-[address] Dale Boone Work Phone: [facility] Start: 08-21-2021 Non-patient / Non-visit Dr. Monisha Vo Work Phone: [facility] Start: 08-21-2021 End: 08-21-[address] Eben Vo Work Phone: [facility] [facility] Start: 08-02-2021 End: 08-02-2021 Patient encounter procedure Reji Rose DPM Work Phone: [facility] Comment on above: Verrucae vulgaris (P rimary Dx); Pain in right foot Start: 07-30-2021 End: 07-30-[address] Eben Vo Work Phone: [facility] Start: 07-25-2021 End: 07-25-2021 Patient encounter procedure Abelardo Rivera MD Work Phone: Ophthalmology Comment on above: Patient left without being seen (Primary Dx) Start: 07-12-2021 End: 07-12-2021 Patient encounter procedure Reji Rose DPM Work Phone: [facility] Comment on above: Verrucae vulgaris (P rimary Dx); Pain in right foot Start: 06-21-2021 End: 06-21-2021 Office outpatient visit 10 minutes Reji Rose DPM Work Phone: [facility] Comment on above: Verruca vulgaris (Pr imary Dx); Arthritis of right foot; Pain in left foot Start: 05-25-2021 AUDIT Eben jason Work Phone: [facility] Work Phone: Start: 2021 End: 2021 Office outpatient visit 10 minutes Reji Rose DPM Work Phone: [facility] Comment on above: Plantar warts (Prima ry Dx); Pain in left foot Start: 05-10-2021 End: 05-10-2021 Follow-up encounter Reji Rose DPM Work Phone: [facility] Comment on above: Posterior tibial ten donitis, right (Primary Dx) Start: 04-19-2021 End: 04-19-2021 Postop follow up visit related to original px Reji Rose DPM Work Phone: [facility] Comment on above: No post-op complicat ions (Primary Dx) Start: 04-11-2021 End: 04-11-2021 ambulatory [facility] Start: 04-05-2021 End: 04-05-2021 Office outpatient visit 15 minutes Reji Rose DPM Work Phone: [facility] Comment on above: Exostosis of right f oot (Primary Dx); Onychomycosis; Callus of foot Start: 03-28-2021 Preprocedural examination done Reji Rose DPM Work Phone: [facility] Work Phone: Start: 03-28-2021 End: 04-01-2021 ambulatory [facility] Start: 03-08-2021 AUDIT Eben jason Work Phone: [facility] Work Phone: Start: 03-08-2021 EPV, Provider: Lavelle Boone, Status: Pen, Time: 8:20 AM Eben Vo Work Phone: [facility] Work Phone: Start: 03-06-2021 Chart Update Eben jason Work Phone: [facility] Work Phone: Start: 02-22-2021 Admission to [facility] Reji Rose DPM Work Phone: [facility] Comment on above: Pre-op testing (Prim alton Dx) Start: 02-22-2021 Patient encounter status Reji Rose DPM Work Phone: [facility] Start: 02-22-2021 End: 02-22-2021 Office outpatient visit 10 minutes Reji Rose DPM Work Phone: [facility] Comment on above: Exostosis of right f oot (Primary Dx); Onychomycosis; Pain in right toe(s) Start: 01-18-2021 End: 01-18-2021 Emergency department patient visit Delphine Childress [facility] Emergency 15 Start: 01-15-2021 Chart Update Eben jason Work Phone: [facility] [facility] Work Phone: Start: 12-28-2020 AUDIT Eben jason Work Phone: [employer] [facility] Work Phone: Start: 12-21-2020 End: 12-21-2020 Office outpatient visit 10 minutes Reji Rose DPM Work Phone: [facility] Comment on above: 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); Pes planovalgus; Onychomycosis Start: 11-23-2020 End: 11-23-2020 Office outpatient visit 15 minutes Reji Rose DPM Work Phone: [facility] Comment on above: Post-traumatic arthr itis of right foot (Primary Dx); Plantar fasciitis of right foot; Onychomycosis of toenail Start: 11-20-2020 Chart abstracting Reji Rose DPM Work Phone: [facility] Start: 07-19-2020 End: 07-19-2020 Emergency department patient visit Delphine Childress [facility] Emergency 05 Start: 02-18-2019 Patient encounter procedure Lavelle Boone [facility] Work Phone: Start: 01-08-2019 Patient encounter procedure Lavelle Iniguezd [facility] Work Phone: Start: 06-05-2018 End: 06-06-2018 Patient encounter procedure Hung Villalobos Facility:Medical [facility] Start: 03-11-2018 End: 03-12-2018 Patient encounter procedure Radha Wheeler Facility:[facility] Start: 02-27-2018 End: 02-28-2018 Patient encounter procedure Lavelle Iniguezd Facility:Medical [facility] Start: 02-13-2018 End: 02-14-2018 Patient encounter procedure Grantyulisa Jadiel Facility:Medical [facility] Start: 11-25-2017 End: 11-26-2017 Patient encounter procedure Eben Vo Facility:[facility] Start: 11-25-2017 End: 11-26-2017 Patient encounter procedure Eben Vo Facility:Medical [facility] Start: 08-13-2017 End: 08-13-2017 Ambulatory Matteo [place] Work Phone: [facility] Start: 07-11-2017 End: 07-12-2017 Patient encounter procedure Lavelle Iniguezd Facility:Medical [facility] Patient encounter procedure Eben Vo Work Phone: [facility] Work Phone: Procedures Date Procedure Procedure Detail Performing Clinician Start: 05-27-2024 Ophthalmic us dx corneal pachymetry uni/bi Lauren Walters MD Work Phone: Start: 05-27-2024 End: 05-27-2024 Visual field xm uni/bi w/interp extended exam Lauren Walters MD Work Phone: Start: 05-21-2024 Evaluation of diagnostic study results Dr. Eben Vo MD Work Phone: Start: 04-29-2024 Thyrotropin [Units/volume] in Serum or Plasma Eben Vo MD Work Phone: Start: 04-12-2024 Radex foot complete minimum 3 views Reji Rose DPM Work Phone: Start: 02-23-2024 X-ray of knee, one or two views Dr. Eben Vo MD Work Phone: Start: 02-20-2024 Visual field xm uni/bi w/interp extended exam Abelardo Rivera MD Work Phone: Start: 02-09-2024 Fundus photography w/interpretation & report Abelardo Rivera MD Work Phone: Start: 02-09-2024 Computerized ophthalmic imaging optic nerve Abelardo Rivera MD Work Phone: Start: 01-29-2024 Methicillin resistant Staphylococcus aureus screening test Dr. Eben Vo MD Work Phone: Start: 01-29-2024 MRI of lower extremity Dr. Eben marina MD Work Phone: Start: 12-16-2023 Thyrotropin [Units/volume] in Serum or Plasma Eben Vo MD Work Phone: Start: 09-16-2023 Thyrotropin [Units/volume] in Serum or Plasma Ashley Cazares DO Work Phone: Start: 06-06-2023 H. PYLORI ANTIGEN, STOOL EBEN VO Start: 06-05-2023 Follow-up visit Follow-up ASHLEY CAZARES Start: 05-01-2023 ALLERGEN, FOOD PROFILE IGE EBEN MARINA Start: 05-01-2023 CELIAC PANEL (ARUP) EBEN VO Start: 05-01-2023 DEAMIDATED GLIADIN ANTIBODY IGA EBEN VO Start: 05-01-2023 DEAMIDATED GLIADIN ANTIBODY IGG (ARUP) EBEN VO Start: 05-01-2023 TISSUE TRANSGLUTAMINASE, IGA EBEN BALLARD Start: 05-01-2023 TISSUE TRANSGLUTAMINASE, IGG (ARUP) EBEN VO Start: 05-01-2023 NURSING COMMUNICATION- RITUXAN REACTION Reji Rose DPM Work Phone: Start: 05-01-2023 Radex ankle complete minimum 3 views Reji Rose DPM Work Phone: Start: 04-18-2023 Computed tomography of abdomen and pelvis with contrast Dr. Dale Boone Work Phone: Start: 04-03-2023 NURSING COMMUNICATION- RITUXAN REACTION Reji Rose DPM Work Phone: Start: 02-12-2023 NM HEPATOBILIARY W CHOLECYSTOKININ EBEN VO Start: 02-12-2023 Hepatobil syst imag inc gb w/pharma intervenj Ashley Cazares DO Work Phone: Start: 01-17-2023 US ABDOMEN COMPLETE EBEN VO Start: 01-17-2023 Us abdominal real time w/image documentation Ashley Cazares DO Work Phone: Start: 12-03-2022 Plain chest X-ray Dr. Dale Boone Work Phone: Start: 11-27-2022 Plain chest X-ray Dr. Dale Boone Work Phone: Start: 11-27-2022 Thyrotropin [Units/volume] in Serum or Plasma Eben Vo MD Work Phone: Start: 10-17-2022 NURSING COMMUNICATION- RITUXAN REACTION Reji Rose DPM Work Phone: Start: 02-21-2022 Lipid 1996 panel - Serum or Plasma Lavelle Boone MD Work Phone: Start: 12-13-[address] Dale Boone Work Phone: Start: 09-27-2021 Colonoscopy Reji HEADM Work Phone: Start: 09-27-2021 Colonoscopy Eben Mathews [place] Work Phone: Comment on above: [facility],; Start: 09-25-2021 End: 09-25-2021 Colonoscopy Eben Mathews [place] Work Phone: Start: 11-23-2020 Radex foot complete minimum 3 views Reji Rose DPM Work Phone: Start: 03-03-2019 Xray Chest 2 View PA + Lateral Lavelle Boone Start: 01-08-2019 Comprehensive metabolic 2000 panel Lavelle Boone Start: 01-08-2019 Lipid panel Lavelle Boone Start: 01-08-2019 PSA screening Lavelle Boone Start: 11-24-2018 Blood count complete auto&auto difrntl wbc Lavelle Boone Start: 11-24-2018 Comprehensive metabolic 2000 panel Lavelle Boone Start: 11-24-2018 Lipid panel Lavelle Boone Start: 11-24-2018 PSA screening Lavelle Boone Start: 11-25-2017 PSA screening Eben Vo Comment on above: Result Comment: AGE-SPECIFIC REFERENCE R ANGES FOR SERUM PSA REFERENCE RANGE NG/ML AGE ASIANS BLACKS WHITE 40-49 0-2 0-2 0-2.5 50-59 0-3 0-4 0-3.5 60-69 0-4 0-4.5 0-4.5 70-79 0-5 0-5.5 0-6.5 PSA INCREASES WITH AGE, RACE, AND EJACULATION WITHIN 48 HRS. [facility] VOL24,NO.2, , PG.339 Performed By: #### [id number] #### [facility] [employer] [address] [place] [address] Start: 05-09-2015 History of operative procedure on knee History of left knee replacement Dr. Eben Vo Work Phone: Start: 07-19-2011 Colonoscopy Reji Rose DPM Work Phone: Start: 07-19-2011 Colonoscopy Eben Vo Work Phone: Comment on above: [place], 10 years; Appendectomy Lavelle mathews Arthroplasty of knee Ford Boone Cardiac catheterization Ty Boone Comment on above: 2018, neg, [place]; Colonoscopy Lavelle mathews Decompression of med heidi nerve Lavelle Boone Comment on above: 2018, R hand; Endoscopic balloon dilatation of ostium of paranasal sinus Eben Vo Work Phone: History of appendectomy History of appendectomy Dr. Eben Vo Work Phone: History of operative procedure on knee History of arthroscopic knee surgery Dr. Eben Vo Work Phone: Comment on above: Irrigation of knee joint History of tonsillectomy History of tonsillectomy and adenoidectomy Dr. Eben Vo Work Phone: Operation on fracture Andriy Boone Phacoemulsification of cataract with intraocular lens implantation Eben Vo Work Phone: Comment on above: 2020; Release of trigger finger Ch ristopher Boone Tonsillectomy and adenoidectomy Lavelle Boone Plan of Treatment Date Care Activity Detail Author Start: 09-28-2031 Screening for malign ant neoplasm of colon [facility] Start: 09-26-2031 Screening for malign ant neoplasm of colon [facility] Start: 05-22-2027 Diabetes Screening Diabetes Screenin g [facility] Start: 04-29-2027 DTaP/Tdap/Td Vaccine s (2 - Td or Tdap) DTaP/Tdap/Td Vaccines (2 - Td or Tdap) [facility] Start: 04-29-2027 Tetanus vaccination Tetanus: E very 10yrs [facility] Start: 04-29-2027 Urine microalbumin profile DTa P,Tdap,Td Vaccine (2 - Td or Tdap) [facility] Start: 02-21-2027 Lipid panel [facility] Start: 09-15-2026 Diabetes Screening Diabetes Screenin g [facility] Start: 05-11-2025 End: 05-11-2025 Patient encounter procedure 05/11/2025 9:20 AM EDT Office Visit [address] [phone] Eben Vo MD [address] [place] [address] [facility] Start: 05-08-2025 Medicare Annual Wellness Visit Medicare Annual Wellness Visit (AWV) [facility] Start: 05-07-2025 Medicare Wellness Visit Medica re Wellness Visit [facility] Start: 04-29-2025 Thyroid stimulating hormone measurement TSH Level [facility] Start: 01-28-2025 Creatinine measurement Creatinine Le michele [facility] Start: 01-28-2025 Potassium measurement Potassium Leve l [facility] Start: 12-15-2024 Thyroid stimulating hormone measurement TSH Level [facility] Start: 11-18-2024 Echocardiography Echocardiogram [facility] Start: 09-15-2024 Creatinine measurement Creatinine Le michele [facility] Start: 09-15-2024 Potassium measurement Potassium Casimiroe l [facility] Start: 09-15-2024 Thyroid stimulating hormone measurement TSH Level [facility] Start: 08-23-2024 End: 08-23-2024 Patient encounter procedure 08/23/2024 10:30 AM EDT Office Visit [facility] [address] [place] [address] Abelardo Rivera MD [address] [place] [address] 6 months vf loss Ophthalmology Comment on above: 6 months vf loss Start: 08-07-2024 End: 05-07-2025 Thyrotropin [Units/volume] in Serum or Plasma Thyroid Stimulating Hormone Lab Routine Acquired hypothyroidism Expected: 08/07/2024 (Approximate), Expires: 05/07/2025 [facility] Service Area Work Phone: Comment on above: Expected: 08/07/2024 (Approximate), Expires: 05/07/2025 Start: 07-29-2024 End: 07-29-2024 Patient encounter procedure 07/29/2024 8:15 AM EDT Office Visit [facility] [address] [place] [address] Shakir Callahan MD [address] [place] [address] [facility] in [place] for retinal eval. FU with Rivera as scheduled. Ophthalmology Comment on above: [place] in [place] fo r retinal eval. FU with Rivera as scheduled. Start: 07-08-2024 End: 07-08-2024 Patient encounter procedure 07/08/2024 9:00 AM EDT Office Visit [facility] [address] [place] [phone] Reji Rose, GABBI [address] [place] [address] [facility] Start: 05-27-2024 End: 05-27-2024 Patient encounter procedure 05/27/2024 12:30 PM EDT Office Visit [facility] [address] [address] Lauren Walters MD [address] [place] [address] visual field loss referred by dr rivera Ophthalmology Comment on above: visual field loss re ferred by dr rivera Start: 05-22-2024 Echocardiography Echocardiogram [facility] Start: 05-20-2024 End: 05-20-2024 Patient encounter procedure 05/20/2024 10:30 AM EDT Office Visit [facility] [address] [place] [phone] Reji Rose, GABBI [address] [place] [address] [facility] Start: 05-07-2024 End: 05-07-2024 Patient encounter procedure 05/07/2024 9:00 AM EDT Office Visit [place] [address] [phone] Eben Vo MD [address] [address] [facility] Start: 05-06-2024 End: 02-05-2025 Thyrotropin [Units/volume] in Serum or Plasma Thyroid Stimulating Hormone Lab Routine Acquired hypothyroidism Expected: 05/06/2024 (Approximate), Expires: 02/05/2025 [facility] Service Area Work Phone: Comment on above: Expected: 05/06/2024 (Approximate), Expires: 02/05/2025 Start: 05-06-2024 End: 05-06-2024 Patient encounter procedure 05/06/2024 9:00 AM EDT Office Visit [facility] [address] [place] [address] Reji Rose, GABBI [address] [place] [address] [facility] Start: 04-03-2024 CLASS III : OFFICE VISIT CLASS III : OFFICE VISIT [facility] Start: 03-19-2024 Creatinine measurement Creatinine Le [facility] Start: 03-19-2024 Medicare Annual Wellness Visit Medicare Annual Wellness Visit (AWV) [facility] Start: 03-19-2024 Potassium measurement Potassium Leve l [facility] Start: 03-18-2024 End: 03-18-2024 Patient encounter procedure 03/18/2024 3:20 PM EST Office Visit [address] [phone] Eben Vo MD [facility] [address] [address] [facility] Start: 03-18-2024 History and physical examination, annual for health maintenance Wellness Visit [facility] Start: 03-18-2024 Medicare Wellness Visit Medica re Wellness Visit [facility] Start: 03-06-2024 Creatinine measurement Creatinine Le [facility] Start: 03-06-2024 Potassium measurement Potassium Leve l [facility] Start: 02-28-2024 Echocardiography Echocardiogram [facility] Start: 02-24-2024 Patient discharge [facility] Start: 02-23-2024 Following clinical p athway protocol [facility] Start: 02-23-2024 Application of inter mittent pneumatic compression device [facility] Start: 02-23-2024 Anesth open/surg art hrs total knee arthroplasty ANESTH KNEE ARTHROPLASTY [facility] Start: 02-23-2024 Arthrp kne condyle&p latu medial&lat compartments TOTAL KNEE ARTHROPLASTY [facility] Start: 02-23-2024 Injection aa&/strd f emoral nerve NJX AA&/STRD FEMORAL NRV IMG [facility] Start: 02-23-2024 Provision of overbed trapeze [facility] Start: 02-23-2024 Recommendation to co yovanyue with treatment [facility] Start: 02-23-2024 Ambulation therapy management [facility] Start: 02-23-2024 Application of device W [facility] Start: 02-23-2024 Application of elastic bandage [facility] Start: 02-23-2024 Assessment of risk o f venous thromboembolism [facility] Start: 02-23-2024 Catheterization of vein [facility] Start: 02-23-2024 Consultation [facility] Start: 02-23-2024 Exercises [facility] Start: 02-23-2024 Following clinical p athway protocol [facility] Start: 02-23-2024 Incentive spirometry [facility] Start: 02-23-2024 Introduction of urin alton catheter [facility] Start: 02-23-2024 Measuring intake and output [facility] Start: 02-23-2024 Neurovascular assessment [facility] Start: 02-23-2024 Patient education [facility] Start: 02-23-2024 Procedure discontinued [facility] Start: 02-23-2024 Provision of activit y privileges [facility] Start: 02-23-2024 Referral to occupati onal therapist [facility] Start: 02-23-2024 Referral to service [facility] Start: 02-23-2024 Vital signs measurements [facility] Start: 02-23-2024 Wound care [facility] Start: 02-23-2024 [facility] Start: 02-23-2024 Admission procedure [facility] Start: 02-20-2024 End: 02-20-2024 Patient encounter procedure 02/20/2024 3:30 PM EST Office Visit [facility] [address] [place] [address] Abelardo Rivera MD [address] [place] [phone] [facility] Ophthalmology Comment on above: vf Start: 02-18-2024 Advance Directive Discussion A dvance Directive Discussion [facility] Start: 01-25-2024 Creatinine measurement Creatinine Le [facility] Start: 01-25-2024 Potassium measurement Potassium Leve l [facility] Start: 11-28-2023 Thyroid stimulating hormone measurement TSH Level [facility] Start: 11-27-2023 End: 11-27-2023 Patient encounter procedure 11/27/2023 8:15 AM EDT Office Visit [facility] [address] [place] [phone] Reji Rose, GABBI [address] [place] [address] [facility] Start: 11-21-2023 Echocardiography Echocardiogram [facility] Start: 11-13-2023 End: 11-13-2023 Patient encounter procedure 11/13/2023 9:30 AM EDT Office Visit [facility] [address] [employer] [facility] [address] [address] [place] [phone] Ashley Cazares DO [address] [facility], [address] [place] [address] [facility] Start: 10-19-2023 COVID-19 Vaccine ( season) COVID-19 Vaccine ( season) [facility] Start: 10-19-2023 COVID-19 Vaccine ( season) COVID-19 Vaccine ( season) [facility] Start: 10-19-2023 Influenza vaccination Influenz a Vaccine (#1) [facility] Start: 09-16-2023 End: 09-16-2023 Patient encounter procedure 09/16/2023 9:20 AM EDT Office Visit [facility] [address] [place] [address] Eben Vo MD [address] [place] [address] [facility] Start: 08-28-2023 End: 08-28-2023 Patient encounter procedure 08/28/2023 10:30 AM EDT Office Visit [facility] [address] [place] [phone] Reji Rose DPM [address] [place] [address] [facility] Start: 07-17-2023 End: 07-17-2023 Patient encounter procedure 07/17/2023 4:00 PM EDT Office Visit [facility] [address] [place] [phone] Ashley Cazares DO [address] [facility], [place] [phone] [facility] Start: 06-05-2023 End: 06-04-2024 Helicobacter pylori Ag [Presence] in Stool by Immunoassay H. Pylori Antigen, Stool Lab Routine Dyspepsia Expected: 06/05/2023 (Approximate), Expires: 06/04/2024 [facility] Service Area Work Phone: Comment on above: Expected: 06/05/2023 (Approximate), Expires: 06/04/2024 Start: 06-05-2023 End: 06-05-2023 Patient encounter procedure 06/05/2023 8:30 AM EDT Office Visit [facility] [address] [phone] Ashley Cazares DO [address] [facility], [facility] [address] [place] [address] [facility] Start: 05-29-2023 End: 05-29-2023 Patient encounter procedure 05/29/2023 10:30 AM EDT Office Visit [facility] [address] [place] [phone] Reji Rose DPM [address] [place] [address] [facility] Start: 05-01-2023 End: 05-01-2023 Patient encounter procedure 05/01/2023 8:30 AM EDT Office Visit [facility] [address] [place] [address] Reji Rose DPM [address] [place] [address] [facility] Start: 03-25-2023 Esophagogastroduoden oscopy transoral diagnostic EGD DIAGNOSTIC BRUSH WASH [facility] Start: 03-25-2023 Patient discharge [facility] Start: 03-20-2023 End: 03-20-2023 Patient encounter procedure 03/20/2023 9:45 AM EST Office Visit [facility] [address] [facility] [place] [address] [place] [phone] Ashley Cazares, [address] [facility], [place] [address] [place] [phone] [facility] Start: 03-18-2023 End: 03-18-2023 Patient encounter procedure 03/18/2023 9:00 AM EST Office Visit [facility] [address] [place] [address] Eben Vo MD [address] [place] [address] [facility] Start: 03-11-2023 End: 03-11-[address] [facility] Start: 03-09-2023 Medicare Annual Wellness Visit Medicare Annual Wellness Visit (AWV) [facility] Start: 02-17-2023 Advance Directive Discussion A dvance Directive Discussion [facility] Start: 01-17-2023 End: 01-17-2023 Patient encounter procedure 01/17/2023 1:00 PM EST Appointment [facility] [address] [place] [address] [facility] Start: 01-16-2023 End: 01-16-2023 Patient encounter procedure 01/16/2023 2:30 PM EST Office [facility] [address] [employer] [facility] [place] [address] [place] [phone] Ashley Cazares, [address] [facility], [place] [address] [place] [address] [facility] Start: 01-16-2023 End: 01-17-2024 US Abdomen US abdomen complete Imaging Routine Abdominal bloating Expected: 01/16/2023, Expires: 01/17/2024 [facility] Service Area Work Phone: Comment on above: Expected: 01/16/2023 , Expires: 01/17/2024 Start: 01-07-2023 Patient discharge [facility] Start: 12-13-2022 End: 12-13-2022 Patient encounter procedure 12/13/2022 9:00 AM EDT Office Visit [facility] [address] [place] [address] Eebn Vo MD [address] [place] [address] [facility] Start: 12-08-2022 Blood chemistry [facility] Start: 12-07-2022 Blood chemistry [facility] Start: 12-06-2022 Blood chemistry [facility] Start: 12-05-2022 Blood chemistry [facility] Start: 12-04-2022 Patient discharge [facility] Start: 12-04-2022 Notification of physician [facility] Start: 12-04-2022 Patient education [facility] Start: 12-04-2022 Provision of activit y privileges [facility] Start: 12-04-2022 Pulse taking [facility] Start: 12-04-2022 Taking patient vital signs [facility] Start: 12-04-2022 Wound care [facility] Start: 12-04-2022 [facility] Start: 12-04-2022 Blood chemistry [facility] Start: 12-03-2022 Following clinical p athway protocol [facility] Start: 12-03-2022 Following clinical p athway protocol [facility] Start: 12-03-2022 Assessment of risk o f venous thromboembolism [facility] Start: 12-03-2022 Insertion of cathete r into peripheral vein [facility] Start: 12-03-2022 Measuring intake and output [facility] Start: 12-03-2022 Oxygen therapy [facility] Start: 12-03-2022 Providing care accor ding to standard [facility] Start: 12-03-2022 Provision of activit y privileges [facility] Start: 12-03-2022 Referral to occupati onal therapist [facility] Start: 12-03-2022 Referral to service [facility] Start: 12-03-2022 Tobacco use cessation education [facility] Start: 12-03-2022 [facility] Start: 12-03-2022 Electrocardiographic procedure [facility] Start: 12-03-2022 Verification routine [facility] Start: 12-03-2022 Admission procedure [facility] Start: 12-03-2022 Hospital admission, emergency, from emergency room, medical nature [facility] Start: 12-03-2022 Blood chemistry [facility] Start: 12-03-2022 End: 12-03-2022 [facility] Start: 10-31-2022 End: 10-31-2022 Patient encounter procedure 10/31/2022 9:45 AM EDT Office Visit [facility] [address] [place] [id number] Reji Rose DPM [address] [place] [address] [facility] Start: 10-18-2022 COVID-19 Vaccine (4 - 2023-24 season) COVID-19 Vaccine () [facility] Start: 10-18-2022 Influenza vaccination [facility] Start: 10-15-2022 End: 10-16-2023 CBC panel - Blood by Automated count CBC Lab Routine Longstanding persistent atrial fibrillation (CMS/HCC) Chest wall pain Expected: 10/15/2022 (Approximate), Expires: 10/16/2023 [facility] Service Area Work Phone: Comment on above: Expected: 10/15/2022 (Approximate), Expires: 10/16/2023 Start: 10-15-2022 End: 10-16-2023 Comprehensive metabolic 2000 panel - Serum or Plasma Comprehensive Metabolic Panel Lab Routine Longstanding persistent atrial fibrillation (CMS/HCC) Chest wall pain Expected: 10/15/2022 (Approximate), Expires: 10/16/2023 [facility] Work Phone: Comment on above: Expected: 10/15/2022 (Approximate), Expires: 10/16/2023 Start: 10-15-2022 End: 10-16-2023 Erythrocyte sedimentation rate Sedimentation Rate Lab Routine Chest wall pain Expected: 10/15/2022 (Approximate), Expires: 10/16/2023 [facility] Work Phone: Comment on above: Expected: 10/15/2022 (Approximate), Expires: 10/16/2023 Start: 10-15-2022 End: 10-16-2023 XR Chest 2 Views XR chest 2 views Imaging Routine Chest wall pain Expected: 10/15/2022, Expires: 10/16/2023 [facility] Work Phone: Comment on above: Expected: 10/15/2022 , Expires: 10/16/2023 Start: 09-25-2022 Screening for malign ant neoplasm of colon [facility] Start: 03-28-2022 CLASS III : EKG CLASS III : EKG [facility] Start: 03-08-2022 Patient encounter procedure SHANON MENDIOLA, Provider: Lavelle Boone, Status: Pen, Time: 9:00 AM [facility] Work Phone: Start: 02-21-2022 End: 02-21-2022 Patient encounter procedure 02/21/2022 Office Visit Podiatry Reji Rose DPM [address] [place] [address] [facility] Start: 01-31-2022 End: 01-31-2022 Patient encounter procedure 01/31/2022 Office Visit Podiatry Reji Rose DPM [address] [place] [address] [facility] Start: 01-08-2022 DIABETES SCREEN DIABETES SCREEN [facility] Start: 12-28-2021 Screening for malign ant neoplasm of colon [facility] Start: 10-18-2021 Influenza vaccination INFLUENZ A (Season Ended) [facility] Start: 07-18-2021 Screening for malign ant neoplasm of colon [facility] Start: 07-12-2021 End: 07-12-2021 Patient encounter procedure 07/12/2021 Office Visit Podiatry Reji Rose DPM [address] [place] [address] [facility] Start: 06-21-2021 End: 06-21-2021 Follow-up encounter 06/21/2021 Follow-Up Podiatry Reji Rose DPM [address] [place] [address] [facility] Start: 2021 End: 2021 Follow-up encounter 2021 Follow-Up Podiatry Reji Rose DPM [address] [place] [address] [facility] Start: 04-28-2021 COVID-19 Vaccine (4 - Booster for Moderna series) COVID-19 Vaccine (4 - Booster for Moderna series) [facility] Start: 04-26-2021 End: 04-26-2021 Patient encounter procedure 04/26/2021 Office Visit Podiatry Reji Rose DPM [address] [place] [address] [facility] Start: 04-19-2021 End: 04-19-2021 Patient encounter procedure 04/19/2021 Office Visit Podiatry Reji Rose DPM [address] [place] [address] [facility] Start: 04-11-2021 End: 04-11-2021 Admission to [facility] 04/11/2021 Surgery Reji Rose DPM [address] [place] [address] EXCISION BONE SPUR right 5th metatarsal c-arm, power [facility] Comment on above: EXCISION BONE SPUR r ight 5th metatarsal c-arm, power Start: 04-11-2021 End: 04-11-2021 EXCISION BONE SPUR FOOT EXCISION BONE SPUR FOOT Pre-op testing Exostosis of right foot Pain in right toe(s) 04/11/2021 8:15 AM EST [facility] Start: 04-11-2021 Subsequent hospital visit by physician 04/11/2021 Hospital Encounter Reji Rose, GABBI [address] [place] [address] [facility] Start: 03-28-2021 End: 03-28-2021 Patient encounter procedure 03/28/2021 Office Visit Pre-Admission Testing [facility] Preadmission Testing Start: 03-08-2021 EPV, Provider: Lavelle Boone, Status: Pen, Time: 8:20 AM EPV, Provider: Lavelle Boone, Status: Pen, Time: 8:20 AM [facility] Work Phone: Start: 03-08-2021 Patient encounter procedure [facility] Start: 02-23-2021 COVID-19 Vaccine (4 - Booster for Moderna series) COVID-19 Vaccine (4 - Booster for Moderna series) [facility] Start: 02-23-2021 COVID-19 Vaccine (4 - Moderna series) COVID-19 Vaccine (4 - Moderna series) [facility] Start: 02-22-2021 End: 05-23-2021 12 lead ECG ECG 12 Lead ECG Routine Pre-op testing Expected: 02/22/2021, Expires: 05/23/2021 [facility] Comment on above: Expected: 02/22/2021 , Expires: 05/23/2021 Start: 02-22-2021 End: 05-23-2021 Basic metabolic 2000 panel - Serum or Plasma Basic metabolic panel Lab Routine Pre-op testing Expected: 02/22/2021, Expires: 05/23/2021 [facility] Work Phone: Comment on above: Expected: 02/22/2021 , Expires: 05/23/2021 Start: 02-22-2021 End: 05-23-2021 Complete blood count with white cell differential, manual CBC and differential Lab Routine Pre-op testing Expected: 02/22/2021, Expires: 05/23/2021 [facility] Comment on above: Expected: 02/22/2021 , Expires: 05/23/2021 Start: 02-22-2021 End: 02-22-2021 Patient encounter procedure 02/22/2021 Office Visit Podiatry Reji Rose DPM [address] [place] [address] [facility] Start: 02-17-2021 ADVANCE DIRECTIVE DISCUSSION A DVANCE DIRECTIVE DISCUSSION [facility] Start: 12-21-2020 End: 12-21-2020 Patient encounter procedure 12/21/2020 Office Visit PodiatrReji Tabor DPM [address] [place] [address] [facility] Start: 11-23-2020 End: 11-23-2020 Patient encounter procedure 11/23/2020 Office Visit Podiatry Reji Rose, GABBI [address] [place] [address] [facility] Start: 10-18-2020 Influenza vaccination Sequenti al Influenza Vaccine (#1) [facility] Start: 07-19-2020 End: 07-20-2021 [facility] Start: 01-27-2020 H/O: R cataract extraction His tory of cataract surgery, right Date: 27-Jan-2020 [facility] Start: 01-20-2020 H/O: L cataract extraction His tory of cataract surgery, left Date: 20-Jan-2020 [facility] Start: 01-17-2020 Comprehensive metabo lic 2000 panel Comprehensive Metabolic Panel -[facility] Work Phone: Start: 01-17-2020 Lipid panel Lipid Panel -[facility] Work Phone: Start: 01-17-2020 PSA screening Prostate Spec. Ag, Screen [facility] Work Phone: Start: 03-03-2019 Xray Chest 2 V iew PA + Lateral [facility] Work Phone: Start: 10-18-2017 Influenza vaccination SEQUENTI AL INFLUENZA VACCINE (Season Ended) [facility] Start: 05-23-2016 Fall risk assessment Falls Ris k Assessment [facility] Start: 05-23-2016 Pneumococcal vaccination PNEUM OCOCCAL VACCINE AGE 65+ (1 of 2 - PCV13) [facility] Start: 05-23-2016 Pneumococcal Vaccine : Age 65+ (1 of 1 - PPSV23) Pneumococcal Vaccine: Age 65+ (1 of 1 - PPSV23) [facility] Start: 05-23-2016 PNEUMOCOCCAL: 65+ (1 - PCV) PN EUMOCOCCAL: 65+ (1 - PCV) [facility] Start: 2011 Respiratory Syncytia l Virus Immunization: Risk, 60-74 Risk, or 75+ (1 - Risk 60-74 years 1-dose series) Respiratory Syncytial Virus Immunization: Risk, 60-74 Risk, or 75+ (1 - Risk 60-74 years 1-dose series) [facility] Start: 2011 RSV High Risk: (Elde rly (60+) or Population) (1 - Risk 60-74 years 1-dose series) RSV High Risk: (Elderly (60+) or Population) (1 - Risk 60-74 years 1-dose series) [facility] Start: 2011 RSV patient s and/or patients aged 60+ years (1 - 1-dose 60+ series) RSV patients and/or patients aged 60+ years (1 - 1-dose 60+ series) [facility] Start: 2011 RSV Vaccine (1 - Ris k 60-74 years 1-dose series) RSV Vaccine (1 - Risk 60-74 years 1-dose series) [facility] Start: 2011 Zoster vaccine hzv l sophie for subcutaneous use ZOSTER VACCINE [facility] Start: 05-23-2001 Administration of he rpes zoster vaccine Zoster Vaccines (1 of 2) [facility] Start: 05-23-2001 Screening for malign ant neoplasm of colon [facility] Start: 05-23-2001 SHINGRIX VACCINE (1 of 2) MOSS GRIX VACCINE (1 of 2) [facility] Start: 05-23-1996 COLOGUARD (FIT-DNA) COLOGUARD (FIT-D NA) [facility] Start: 05-23-1996 Colonoscopy COLONOSCOPY [facility] Start: 05-23-1996 COLORECTAL CANCER SCREENING CO LORECTAL CANCER SCREENING [facility] Start: 05-23-[address] COLONOGRAPHY [facility] Start: 05-23-1996 FECAL OCCULT BLOOD FECAL OCCULT BLOO D [facility] Start: 05-23-1996 Screening for malign ant neoplasm of colon [facility] Start: 05-23-1996 SIGMOIDOSCOPY SIGMOIDOSCOPY [facility] Start: 05-23-1986 LIPID SCREEN LIPID SCREEN [facility] Start: 05-23-1970 Urine microalbumin profile DTA P,TDAP,TD (1 - Tdap) [facility] Start: 05-23-1969 Anxiety Screening Anxiety Screening [facility] Start: 05-23-1969 Depression Screening Depressio n Screening [facility] Start: 05-23-1969 Diabetes mellitus screening Diabetes Screening [facility] Start: 05-23-1969 Hepatitis C screening Hepatiti s C Screening [facility] Start: 05-23-1969 HEPATITIS C SCREENING HEPATITI S C SCREENING [facility] Start: 1963 COVID-19 Vaccine (1) COVID-19 Vaccine (1) [facility] Start: 1963 Depression screening using PHQ-9 (Patient Health Questionnaire 9) score [facility] Start: 05-23-1954 History and physical examination, annual for health maintenance Wellness Visit [facility] Start: 1951 Alanine aminotransfe rase measurement CLASS III : ALT [facility] Start: 1951 CLASS III : AST CLASS III : AST [facility] Start: 1951 CLASS III : Chest Radiograph C LASS III : Chest Radiograph [facility] Start: 1951 CLASS III : CXR CLASS III : CXR [facility] Start: 1951 CLASS III : EKG CLASS III : EKG [facility] Start: 1951 CLASS III : PFT CLASS III : PFT [facility] Start: 1951 Medicare Annual Wellness Visit Medicare Annual Wellness Visit (AWV) [facility] Start: 1951 Prostate specific an tigen measurement PSA Level [facility] Start: 1951 Screening for malign ant neoplasm of colon [facility] Start: 1951 Thyroid stimulating hormone measurement Class III : TSH [facility] Start: 1951 HEPATITIS C SCREENING HEPATITI S C SCREENING [facility] Start: 1951 Screening colonoscopy [facility] Start: 1951 End: 1951 Tetanus vaccination [facility] [address] [facility] Work Phone: Anion gap measurement [facility] Anion gap measurement [facility] Anion gap measurement [facility] Anion gap measurement [facility] Anion gap measurement [facility] Blood chemistry [facility] BUN/Creatinine ratio [facility] BUN/Creatinine ratio [facility] BUN/Creatinine ratio [facility] BUN/Creatinine ratio [facility] BUN/Creatinine ratio [facility] Calcium [Mass/volume ] in Serum or Plasma [facility] Calcium [Mass/volume ] in Serum or Plasma [facility] Calcium [Mass/volume ] in Serum or Plasma [facility] Calcium [Mass/volume ] in Serum or Plasma [facility] Calcium [Mass/volume ] in Serum or Plasma [facility] Carbon dioxide, tota l [Moles/volume] in Serum or Plasma [facility] Carbon dioxide, tota l [Moles/volume] in Serum or Plasma [facility] Carbon dioxide, tota l [Moles/volume] in Serum or Plasma [facility] Carbon dioxide, tota l [Moles/volume] in Serum or Plasma [facility] Carbon dioxide, tota l [Moles/volume] in Serum or Plasma [facility] Cardioversion [facility] Cardioversion [facility] Chloride [Moles/volu me] in Serum or Plasma [facility] Chloride [Moles/volu me] in Serum or Plasma [facility] Chloride [Moles/volu me] in Serum or Plasma [facility] Chloride [Moles/volu me] in Serum or Plasma [facility] Chloride [Moles/volu me] in Serum or Plasma [facility] Creatinine [Moles/vo lume] in Serum or Plasma [facility] Creatinine [Moles/vo lume] in Serum or Plasma [facility] Creatinine [Moles/vo lume] in Serum or Plasma [facility] Creatinine [Moles/vo lume] in Serum or Plasma [facility] Creatinine [Moles/vo lume] in Serum or Plasma [facility] Electrocardiographic procedure [facility] EXCISION BONE SPUR FOOT EXCISION BONE SPUR FOOT Pre-op testing [facility] Glucose [Mass/volume ] in Serum or Plasma [facility] Glucose [Mass/volume ] in Serum or Plasma [facility] Glucose [Mass/volume ] in Serum or Plasma [facility] Glucose [Mass/volume ] in Serum or Plasma [facility] Glucose [Mass/volume ] in Serum or Plasma [facility] H/O: surgery Status post righ t foot surgery [facility] Hematocrit [Volume F raction] of Blood [facility] Hematocrit [Volume F raction] of Blood [facility] Hematocrit [Volume F raction] of Blood [facility] Hematocrit [Volume F raction] of Blood [facility] Hematocrit [Volume F raction] of Blood [facility] Hemoglobin [Mass/vol ume] in Blood [facility] Hemoglobin [Mass/vol ume] in Blood [facility] Hemoglobin [Mass/vol ume] in Blood [facility] Hemoglobin [Mass/vol ume] in Blood [facility] Hemoglobin [Mass/vol ume] in Blood [facility] History of appendectomy History of appendectomy [facility] History of decompres elizabeth of median nerve History of carpal tunnel release [facility] History of operative procedure on knee History of knee replacement [facility] History of tonsillectomy History of tonsillectomy [facility] Leukocytes [#/volume] in Blood [facility] Leukocytes [#/volume] in Blood [facility] Leukocytes [#/volume] in Blood [facility] Leukocytes [#/volume] in Blood [facility] Leukocytes [#/volume] in Blood [facility] Mean corpuscular hem oglobin concentration determination [facility] Mean corpuscular hem oglobin concentration determination [facility] Mean corpuscular hem oglobin concentration determination [facility] Mean corpuscular hem oglobin concentration determination [facility] Mean corpuscular hem oglobin concentration determination [facility] Mean corpuscular hem oglobin determination [facility] Mean corpuscular hem oglobin determination [facility] Mean corpuscular hem oglobin determination [facility] Mean corpuscular hem oglobin determination [facility] Mean corpuscular hem oglobin determination [facility] Measurement of renal function [facility] Measurement of renal function [facility] Measurement of renal function [facility] Measurement of renal function [facility] Measurement of renal function [facility] Neutrophil count [facility] Neutrophil count [facility] Neutrophil count [facility] Neutrophil count [facility] Neutrophil count [facility] Neutrophil percent d ifferential count [facility] Neutrophil percent d ifferential count [facility] Neutrophil percent d ifferential count [facility] Neutrophil percent d ifferential count [facility] Neutrophil percent d ifferential count [facility] Patient Education ED Heart Disea se Risk Factors [facility] Work Phone: Patient referral [facility] Work Phone: Platelets [#/volume] in Blood [facility] Platelets [#/volume] in Blood [facility] Platelets [#/volume] in Blood [facility] Platelets [#/volume] in Blood [facility] Platelets [#/volume] in Blood [facility] Potassium [Moles/vol ume] in Serum or Plasma [facility] Potassium [Moles/vol ume] in Serum or Plasma [facility] Potassium [Moles/vol ume] in Serum or Plasma [facility] Potassium [Moles/vol ume] in Serum or Plasma [facility] Potassium [Moles/vol ume] in Serum or Plasma [facility] Red blood cell count [facility] Red blood cell count [facility] Red blood cell count [facility] Red blood cell count [facility] Red blood cell count [facility] Red cell distributio n width determination [facility] Red cell distributio n width determination [facility] Red cell distributio n width determination [facility] Red cell distributio n width determination [facility] Red cell distributio n width determination [facility] Sodium [Moles/volume ] in Serum or Plasma [facility] Sodium [Moles/volume ] in Serum or Plasma [facility] Sodium [Moles/volume ] in Serum or Plasma [facility] Sodium [Moles/volume ] in Serum or Plasma [facility] Sodium [Moles/volume ] in Serum or Plasma [facility] Urea nitrogen [Mass/ volume] in Serum or Plasma [facility] Urea nitrogen [Mass/ volume] in Serum or Plasma [facility] Urea nitrogen [Mass/ volume] in Serum or Plasma [facility] Urea nitrogen [Mass/ volume] in Serum or Plasma [facility] Urea nitrogen [Mass/ volume] in Serum or Plasma [facility] End: 01-17-2023 US Abdomen [facility] Service Area Work Phone: Comment on above: Once for 1 Occurrenc es starting 01/17/2023 until 01/17/2023 [facility] Work Phone: [facility] NEGATED: Highlighted row has been ruled out! Planned Goals not documented [facility] Work Phone: Immunizations Immunization Date Immunization Notes Care Provider [facility] 11-27-2023 influenza, seasonal, injectable Eben Vo MD Work Phone: [facility] 12-04-2022 Influenza High-Dose Quadrivalent Dr. Dale Boone Work Phone: [facility] 12-04-2022 influenza virus vaccine, unspecified formulation Reji Rose DPM Work Phone: [facility] 11-23-2021 Fluad Quadrivalent 0 .5 ML Intramuscular Prefilled Syringe Eben Vo Work Phone: [facility] Work Phone: Comment on above: Series: 11-23-2021 influenza virus vaccine, unspecified formulation Lavelle Boone MD Work Phone: [facility] Work Phone: 12-29-2020 Moderna COVID-19 Vaccine 100 MCG/0.5ML Intramuscular Suspension Eben Vo Work Phone: [facility] Work Phone: 11-21-2020 Fluzone High-Dose Quadrivalent 0.7 ML Intramuscular Suspension Prefilled Syringe Eben Vo Work Phone: [facility] Work Phone: 05-12-2020 Moderna COVID-19 Vaccine 100 MCG/0.5ML Intramuscular Suspension Eben Vo Work Phone: [facility] Work Phone: 04-15-2020 Moderna COVID-19 Vaccine 100 MCG/0.5ML Intramuscular Suspension Eben Vo Work Phone: [facility] Work Phone: 01-10-2020 pneumococcal polysaccharide vaccine, 23 valent Eben Robertscel Work Phone: [facility] Work Phone: Comment on above: Series: 11-08-2019 Influenza, injectabl e, Madin Elizabeth Canine Kidney, preservative free, quadrivalent Lavelle Boone MD Work Phone: [facility] Work Phone: 11-08-2019 influenza, seasonal, injectable Eben Robertscel Work Phone: [facility] Work Phone: Comment on above: Series: 08-31-2019 zoster vaccine recombinant Eben Mathews Stencel Work Phone: [facility] Work Phone: Comment on above: Series: 01-27-2019 zoster vaccine recombinant Eben Robertscel Work Phone: [facility] Work Phone: Comment on above: Series: 11-19-2018 influenza, seasonal, injectable Eben Robertscel Work Phone: [facility] Work Phone: Comment on above: Series: 11-19-2018 Seasonal trivalent influenza vaccine, adjuvanted, preservative free Lavelle Boone MD Work Phone: [facility] Work Phone: 12-02-2017 Seasonal trivalent influenza vaccine, adjuvanted, preservative free Eben Robertscel Work Phone: [facility] Work Phone: 04-28-2017 tetanus toxoid, redu jude diphtheria toxoid, and acellular pertussis vaccine, adsorbed Eben Mathews Armandocel Work Phone: [facility] Work Phone: Comment on above: Series: 11-25-2016 influenza, injectabl e, quadrivalent, preservative free Eben Vo Work Phone: [facility] Work Phone: 11-25-2016 pneumococcal conjuga te vaccine, 13 valent Eben Vo Work Phone: [facility] Work Phone: Comment on above: Series: 12-18-[address] Eben Vo Work Phone: [facility] 12-18-2014 influenza virus vaccine, unspecified formulation Reji Rose DPM Work Phone: [facility] 12-18-2014 influenza, seasonal, injectable, preservative free Reji Rose DPM Work Phone: [facility] 09-28-2011 zoster vaccine, live Ashley Th omae DO Work Phone: [facility] 01-05-2008 influenza virus vaccine, whole virus Eben Vo MD Work Phone: [facility] Work Phone: Payers Date Payer Category Payer Self-pay [id number] 2021 Medicare AETNA MEDICARE A ETNA MEDICARE PPO [id number] 2021-Present [phone] [address] [place] [address] PPO [id number] 2021 Medicare (Managed Care) 1.2. [id number] 2017 Private Health Insurance 2017 Medicare AETNA [facility] AET MEDICARE PLAN (PPO) [id number] 2017-Present [phone] [address] [place] [address] [id number]. [id number] 2017 Medicare [id number] [id number]. [id number] 2017 Medicare PPO AETNA MEDICARE P MARIO (PPO) [id number] 2017 Medicare [id number] 2016 Unknown 2015 Unknown [id number] 1950 Unknown [id number] 2.0.1.245907.3.579.2. 717 1950 Unknown [id number] ..1.142452.3.579.2. 717 1951 Unknown [id number] 2.840.1.545486.3.579.2. 903 1950 Unknown [id number] 2.16840.1.861201.3.579.2. 903 1950 Unknown [id number] .840.1.122965.3.579.2. 1069 1951 Unknown [id number] 2.16840.1.760636.3.579.2. 1243 1951 Unknown [id number] 2.16.840.1.270547.3.579.2. 1242 1951 Unknown [id number] 2.16.840.1.480694.3.579.2. 1242 1951 Unknown [id number] 2.16.840.1.853845.3.579.2. 1244 1951 Unknown [id number] 2.16.840.1.678345.3.579.2. 1244 1951 Unknown [id number] 2.16.840.1.059260.3.579.2. 1244 1951 Unknown [id number] 2.16840.1.668515.3.579.2. 1244 1951 Unknown [id number] 2.840.1.665403.3.579.2. 1243 1951 Unknown [id number] 2.840.1.182668.3.579.2. 1243 1951 Unknown [id number] 2.840.1.070317.3.579.2. 1243 1951 Unknown [id number] 2.840.1.768850.3.579.2. 1243 1951 Unknown [id number] 2.840.1.103831.3.579.2. 1243 1951 Unknown [id number] 2.16840.1.402514.3.579.2. 1243 1951 Unknown [id number] 2.16.840.1.848228.3.579.2. 1950 Unknown [id number] 2.16.840.1.231339.3.579.2. 1950 Unknown [id number] 2.16.840.1.952399.3.579.2. 1950 Unknown [id number] 2.16.840.1.412646.3.579.2. 903 1951 Unknown [id number] 2..840.1.266826.3.579.2. 903 1951 Unknown [id number] 2.16.840.1.481805.3.579.2. 903 1951 Unknown [id number] 2.840.1.623140.3.579.2. 90 1950 Unknown [id number] 2.840.1.884673.3.579.2. 903 Unknown [id number] 2.840.1.129173.3.579.2. 462 Unknown [id number] 2.840.1.233096.3.579.2. 462 Unknown [id number] 2.840.1.425101.3.579.2. 462 Unknown [id number] 2.840.1.371239.3.579.2. 462 Unknown [id number] .840.1.652587.3.579.2. 462 Unknown [id number] 2.840.1.759167.3.579.2. 462 Unknown [id number] 2.840.1.053559.3.579.2. 462 Unknown [id number] 2.840.1.366273.3.579.2. 462 Unknown [id number] 2.840.1.780334.3.579.2. 462 Unknown [id number] .840.1.871521.3.579.2. 462 Unknown [id number] 2.840.1.897503.3.579.2. 462 Unknown [id number] 2.840.1.310133.3.579.2. 462 Unknown [id number] 2.840.1.899238.3.579.2. 462 Unknown [id number] 2.16.840.1.618078.3.579.2. 462 Unknown [id number] 2.16.840.1.597821.3.579.2. 462 Unknown [id number] 2.16.840.1.244917.3.579.2. 462 Unknown [id number] 2.16.840.1.178990.3.579.2. 462 Unknown [id number] 2.16.840.1.590525.3.579.2. 462 Unknown [id number] 2.16.840.1.735165.3.579.2. 462 Unknown [id number] 2.16.840.1.425397.3.579.2. 462 Unknown [id number] 2.16.840.1.395832.3.579.2. 462 Unknown [id number] 2.16840.1.391985.3.579.2. 462 Unknown [id number] 2.16840.1.464905.3.579.2. 462 Social History Date Type Detail Facility Start: 08-13-2017 End: 05-27-2023 Tobacco smoking status CAIS Unknown if ever smoked [facility] Start: 1950 Sex Assigned At Not on file [facility] Start: 01-10-2020 End: 11-20-2020 Tobacco smoking status CAIS Never smoked tobacco [facility] Start: 11-20-2020 Tobacco use and exposure Smokeless tobacco non-user [facility] Start: 11-20-2020 End: 05-20-2024 Alcohol intake Current drinker of alcohol (finding) [facility] Start: 11-20-2020 History SDOH Alcohol Comment occasionally [facility] Start: 04-01-2021 End: 05-07-2024 Exposure to SARS-CoV-2 (event) Not sure [facility] Start: 04-05-2021 End: 02-09-2024 Consumes alcohol Consumes alcohol [facility] Work Phone: Start: 01-10-2020 End: 11-20-2020 Tobacco use and exposure User of smokeless tobacco [facility] Start: 03-28-2021 End: 07-12-2021 Tobacco Comment does use chew tobacco ( 1 pouch every 2 to 3 weeks ) [facility] Start: 01-22-2021 End: 05-27-2024 Alcohol intake Ex-drinker (finding) [facility] Start: 1950 Sex Assigned At Male [facility] Start: 08-01-2022 End: 02-09-2024 Tobacco use panel [facility] History of tobacco use Passive smoker [facility] Work Phone: History of tobacco use Chews Tobacco [facility] Work Phone: Start: 12-13-2022 Tobacco use and exposure Former smokeless tobacco user [facility] Work Phone: Start: 12-13-2022 Alcohol Comment occasional [facility] Work Phone: National Score (1-100), lower number is lower risk 60 [facility] Start: 02-23-2024 Tobacco smoking status NHIS Current some day smoker [facility] Start: 05-27-2024 End: 05-29-2024 Sex Male (finding) [facility] NEGATED: Highlighted row - - [facility] Work Phone: Medical Equipment Procedure Code Equipment Code Equipment Origin al Text Equipment Identifier Dates Lens, Intraocula r Sn6at3 12.0 Case [id number] Start: 01-20-2020 Comment on above: Description: Convert ed from [facility]. Please see archived information for full log information. Lens, Intraocula r Sn6at3 12.0 Case [id number] Start: 01-27-2020 Comment on above: Description: Convert ed from [facility]. Please see archived information for full log information. ([id number]) Metal-backed patella prosthesis ()[id number] FDA Start: 02-23-2024 ([id number]) Coated knee femu r prosthesis ()[id number] FDA Start: 02-23-2024 ([id number]) Coated knee tibi a prosthesis ()[id number] FDA Start: 02-23-2024 Tibial insert ()[id number] FDA Start: 02-23-2024 Goals Date Patient Goal Desired Activity /State Functional Status Date Assessment Result Facility 02-24-2024 Functional status Ambulates;[place]ans[place] r;Bedre st;Bathroom Privilege [facility] Work Phone: 12-04-2022 Functional status Bathroom Privilege [facility] Work Phone: 12-03-2022 Functional status Ambulates [facility] Work Phone: NEGATED: Highlighted row Functional performance Functional status health issues are not documented Disease [facility] Work Phone: Mental Status Date Assessment Result Facility 02-24-2024 Cognitive function Voice/Name [facility] Work Phone: 03-25-2023 Cognitive function Light Pain [facility] Work Phone: 12-04-2022 Cognitive function Voice/Name [facility] Work Phone: 12-03-2022 Cognitive function Voice/Name [facility] Work Phone: 12-03-2022 Cognitive function Voice/Name [facility] Work Phone: NEGATED: Highlighted row Cognitive function [Interpretation] Cognitive status health issues are not documented [facility] Work Phone: Clinical Notes 02-28-2020 to 07-08-2024 Lauren Walters MD - 05/27/2024 2:10 PM Reji Landa DPM - 05/20/2024 12:44 PM EDTAssessment & Plan Note - Eben Vo MD - 05/07/2024 9:00 AM EDTPatient Instructions Note Date & Type Note Facility 07-08-2024 Note Patient: Chasity Currie Date of : 1950 (74 y.o.) PCP: Eben Vo MD Procedures I debrided the callus of the left foot with a #15 blade needle. I debrided the 2 warts on the bottom of the right foot and treated them with histofreeze for 30 seconds. ASSESSMENT/PLAN: Chasity Pino 74 y.o. male with history of painful onychomycosis toenails 1 through 5 bilateral feet. Warts x 2 on the bottom of the right foot. Callus on the fifth metatarsal base. Plan: I debrided the toenails as described above. I treated the warts as described above on the right foot. Reappoint in 1 month Assessment & plan notes cannot be loaded without a specified hospital service. SUBJECTIVE: History Since Last Visit: Patient 74-year-old male seen in the office complaining of fungal toenails of both feet. Patient relates he has a couple new warts that showed up on the bottom of the right foot. 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 Review of Systems: OBJECTIVE: Physical Examination: Integument-there are 2 papillomatous lesions on the plantar aspect of the right foot which were 2 to 3 mm in diameter. Toenails 1 through 5 are thick yellow dystrophic crumbly with subungual debris. Patient has a callus underneath the fifth metatarsal base left foot. Neuro-intact bilateral feet. Musculoskeletal-lateral bony prominence of the fifth metatarsal base left foot returning. 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 Vascular-DP PT pulses are 1 out of 4 bilateral feet. 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 There is previous arthrodesis of the second third metatarsal cuneiforms. Inferior calcaneal spur noted. AUTHENTICATED BY REJI ROSE, ON 07/08/2024 12:48:56 [facility] 05-27-2024 Note Date of Procedure 05/27/2024. Sack Filler Information Grazing Examiner: NICHOLE. Notes OCT 05/27/2024 OD diffuse global thinning not neccesarily in a glaucoma pattern OS diffuse global thinning not neccesarily in a glaucoma pattern [facility] 05-27-2024 Note Date of Procedure 05/27/2024. Sack Filler Information Grazing Examiner: NICHOLE. Imaging Comments: Limited quality images due to non-mydriatic state . Notes Document baseline disc photos [facility] 05-27-2024 Note Table formatting fro m the original result was not included. Date of Procedure 05/27/2024. Notes Ophthalmology Exam Pachymetry (05/27/2024) Right Left Thickness [phone] Edited by: Marge Tucker OA [facility] 05-27-2024 Note Date of Procedure 05/27/2024. Sack Filler Information Grazing Examiner: kristina. Start time: 1:09 PM. Stop time: 1:27 PM. No Allergies to adhesive bandages. Notes HVF 05/27/2024 OD normal OS sup defect, not as bad as last time [facility] 05-27-2024 Note HNO ID: [id number] Author: LAUREN WALTERS MD Service: ? Author Type: Physician Type: Progress Notes Filed: 05/27/2024 14:31 Note Text: Tmax: OD 23 OS 23 Pachy: OD 583, OS 565 Lasers and Surgeries: OD YAG 2020 CEIOL OS YAG 2020 CEIOL Current Glaucoma Med Regimen: None Eyedrop Adherence: n/a Background Glaucoma Information: Referred by: [facility] History: afib on blood thinner for that, amiodarone, flomax , thyroid Family History: no Trauma: no Steroid Use: no Hemodialysis: no ASA/Anti-coagulation: xarelto Prior Glaucoma Meds, Intolerances, Allergies: none Most Recent Glaucoma Testing: HVF 05/27/2024 OD normal OS sup defect, not as bad as last time OCT 05/27/2024 OD diffuse global thinning not neccesarily in a glaucoma pattern OS diffuse global thinning not neccesarily in a glaucoma pattern ASSESSMENT AND PLAN 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 Escalate therapy?: no - not convinced its glaucoma Recommended options: Discussed monitor testing with dr rivera also get a retina eval Patient elects: the above Use these drops: none FU with DR Rivera. Also refer to [facility] for a baseline retinal eval to make sure no retinal vascular / perfusion related causes of VF loss OS Consultation requested by Dr. rivera for an opinion regarding glaucoma. My final recommendations will be communicated back to the requesting physician by way of shared Medical record or letter to requesting physician via [place] mail. I have confirmed and edited as necessary the relevant HPI, ophthalmic history, ROS, and the neuro exam findings as obtained by others. I have seen and examined Chasity Pino. I have discussed the case and the management of this patient's care with no trainee. I also have reviewed and agree with the assessment and plan as stated above and agree with all of its relevant components. Lauren Walters MD 05/27/2024 [facility] 05-27-2024 History of Present illness Narrative Tmax: OD 23 OS 23 Pachy: OD 583, OS 565 Lasers and Surgeries: OD YAG 2020 CEIOL OS YAG 2020 CEIOL Current Glaucoma Med Regimen: None Eyedrop Adherence: n/a Background Glaucoma Information: Referred by: [facility] Medical History: afib on blood thinner for that, amiodarone, flomax , thyroid Family History: no Trauma: no Steroid Use: no Hemodialysis: no ASA/Anti-coagulation: xarelto Prior Glaucoma Meds, Intolerances, Allergies: none Most Recent Glaucoma Testing: HVF 05/27/2024 OD normal OS sup defect, not as bad as last time OCT 05/27/2024 OD diffuse global thinning not neccesarily in a glaucoma pattern OS diffuse global thinning not neccesarily in a glaucoma pattern ASSESSMENT AND PLAN 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 Escalate therapy?: no - not convinced its glaucoma Recommended options: Discussed monitor testing with dr rivera also get a retina eval Patient elects: the above Use these drops: none FU with DR Rivera. Also refer to [facility] for a baseline retinal eval to make sure no retinal vascular / perfusion related causes of VF loss OS Consultation requested by Dr. rivera for an opinion regarding glaucoma. My final recommendations will be communicated back to the requesting physician by way of shared Medical record or letter to requesting physician via [place] mail. I have confirmed and edited as necessary the relevant HPI, ophthalmic history, ROS, and the neuro exam findings as obtained by others. I have seen and examined Chasity Pino. I have discussed the case and the management of this patient's care with no trainee. I also have reviewed and agree with the assessment and plan as stated above and agree with all of its relevant components. Lauren Walters MD 05/27/2024 documented in this encounter [facility] 05-20-2024 Note Patient: Chasity Currie Date of : 1950 (73 y.o.) PCP: Eben Vo MD Procedures ASSESSMENT/PLAN: Chasity Pino 73 y.o. male with history of painful verruca of both feet doing better with Histofreezer treatments. Bilateral pes planovalgus foot structure with a large fifth metatarsal base exostosis. Onychomycosis without proptosis of toenails 2 3 and 4 bilateral feet. Plan: I debrided the warts on both feet and treated what was left with histo freeze for 30 seconds. Patient was told to wear his AFO on the left foot and is orthotic on the right foot. If he is not going to wear the AFO on the left foot to replace it with his orthotic. Patient to reappoint if he has any flareups of the warts or calluses. Assessment & plan notes cannot be loaded without a specified hospital service. SUBJECTIVE: History Since Last Visit: Patient 73-year-old male follows up at the office for warmth about both feet. Patient had problems with calluses on the lateral subfifth metatarsal bases. Patient has had some problems with left rear foot varus overloading the lateral column of the foot. 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 Patient is on current anticoagulant therapy with a history of atrial fibs. Patient relates his right knee is doing better since has been going to physical therapy and seeing pain management. Patient had a history of a right knee replacement. Review of Systems: OBJECTIVE: Physical Examination: Integument-there was a couple papillomatous lesions with pinpoint bleeders and pain on jsmz-py-xrcz squeeze test on the plantar aspect of the right heel. Patient was on the lateral side the fifth metatarsal base of the left foot with surrounding callus. Toenails 2 3 and 4 were thick yellow dystrophic crumbly with subungual debris. Neuro-intact bilateral feet. Musculoskeletal-lateral bony prominence of fifth metatarsal of the both feet. Decreased medial longitudinal arch of both feet. Patient has a fused tarsometatarsal joint the right foot. Patient has a left heel varus. Vascular-DP PT pulses are palpable bilateral feet. BP 113/68 (BP Location: Right arm, Patient Position: Sitting, BP Cuff Size: Adult) Pulse (!) 52 Temp 98.1 degrees F (36.7 degrees C) (Oral) Laboratory and Additional Data Reviewed: Reviewed:[id number]} XR Foot Right 3+ Views (Standard) X-rays 3 views right foot: There is significant arthritis of the fourth and fifth metatarsal cuboid joints, talonavicular and naviculocuneiform joints. There is previous arthrodesis of the second third metatarsal cuneiforms. Inferior calcaneal spur noted. AUTHENTICATED BY REJI ROSE, ON 05/20/2024 12:47:46 [facility] 05-20-2024 History of Present illness Narrative Patient: Chasity Pino Date of : 1950 (73 y.o.) PCP: Eben Vo MD Procedures ASSESSMENT/PLAN: Chasity Pino 73 y.o. male with history of painful verruca of both feet doing better with Histofreezer treatments. Bilateral pes planovalgus foot structure with a large fifth metatarsal base exostosis. Onychomycosis without proptosis of toenails 2 3 and 4 bilateral feet. Plan: I debrided the warts on both feet and treated what was left with histo freeze for 30 seconds. Patient was told to wear his AFO on the left foot and is orthotic on the right foot. If he is not going to wear the AFO on the left foot to replace it with his orthotic. Patient to reappoint if he has any flareups of the warts or calluses. Assessment & plan notes cannot be loaded without a specified hospital service. SUBJECTIVE: History Since Last Visit: Patient 73-year-old male follows up at the office for warmth about both feet. Patient had problems with calluses on the lateral subfifth metatarsal bases. Patient has had some problems with left rear foot varus overloading the lateral column of the foot. 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 Patient is on current anticoagulant therapy with a history of atrial fibs. Patient relates his right knee is doing better since has been going to physical therapy and seeing pain management. Patient had a history of a right knee replacement. Review of Systems: OBJECTIVE: Physical Examination: Integument-there was a couple papillomatous lesions with pinpoint bleeders and pain on rhkx-yb-plof squeeze test on the plantar aspect of the right heel. Patient was on the lateral side the fifth metatarsal base of the left foot with surrounding callus. Toenails 2 3 and 4 were thick yellow dystrophic crumbly with subungual debris. Neuro-intact bilateral feet. Musculoskeletal-lateral bony prominence of fifth metatarsal of the both feet. Decreased medial longitudinal arch of both feet. Patient has a fused tarsometatarsal joint the right foot. Patient has a left heel varus. Vascular-DP PT pulses are palpable bilateral feet. BP 113/68 (BP Location: Right arm, Patient Position: Sitting, BP Cuff Size: Adult) Pulse (!) 52 Temp 98.1 F (36.7 C) (Oral) Laboratory and Additional Data Reviewed: Reviewed:[id number]} XR Foot Right 3+ Views (Standard) X-rays 3 views right foot: There is significant arthritis of the fourth and fifth metatarsal cuboid joints, talonavicular and naviculocuneiform joints. There is previous arthrodesis of the second third metatarsal cuneiforms. Inferior calcaneal spur noted. documented in this encounter [facility] 05-07-2024 Evaluation + Plan note Associated Problem(s): Congestive heart failure, unspecified HF chronicity, unspecified heart failure type [facility] Work Phone: 05-07-2024 History of Present illness Narrative Subjective Reason for Visit: Chasity Pino is an 73 y.o. male here for a Medicare Wellness visit. Past Medical, Surgical, and Family History reviewed and updated in chart. Reviewed all medications by prescribing practitioner or clinical pharmacist (such as prescriptions, OTCs, herbal therapies and supplements) and documented in the medical record. HPI Had tkr in February. Is noff amiodarone, on levo, wants to stop and reproveindication for thyroid replacement. CHF on GDMT. Doing well Patient Care Team: Eben Vo MD as PCP - General (Family Medicine) Ashley Cazares DO as PCP - [employer] Medicare Advantage PCP Review of Systems General-no fatigue weight to within 10 pounds ENT no problems with vision swallowing Cardiac no chest pains palpitations change in exercise tolerance or capacity Pulmonary no cough shortness of breath GI no heartburn or abdominal pain Musculoskeletal no joint pains Objective Vitals: BP 102/58 Pulse 61 Wt 71.7 kg (158 lb) SpO2 95% BMI 24.02 kg/m Physical Exam General: Alert, No acute distress. Appears stated age Eye: Pupils are equal, round and reactive to light, Extraocular movements are intact, Normal conjunctiva. Neck: Supple, Non-tender, No carotid bruit, No jugular venous distention, No lymphadenopathy, No thyromegaly. Respiratory: Lungs are clear to auscultation, Respirations are non-labored, Breath sounds are equal. Cardiovascular: Normal rate, Regular rhythm, No murmur. Gastrointestinal: Soft, Non-tender, No organomegaly. No solid or pulsatile mass Integumentary: Warm, Dry. No concerning lesions on exposed areas Neurologic: Alert, Oriented. Gross and fine motor intact, CN 2-12 intact Psychiatric: Cooperative, Appropriate mood & affect. Assessment & Plan Routine general medical examination at health care facility Orders: 1 Year Follow Up In Primary Care - Wellness Exam; Future Acquired hypothyroidism Orders: Follow Up In Primary Care Thyroid Stimulating Hormone; Future Congestive heart failure, unspecified HF chronicity, unspecified heart failure type Patient was identified as a fall risk. Risk prevention instructions provided. documented in this encounter [facility] Work Phone: 05-07-2024 Instructions Eben Vo MD - 05/07/2024 9:00 AM EDT Ways to Help Prevent Falls at Home Quick Tips ? Ask for help if you need it. Most people want to help! ? Get up slowly after sitting or laying down ? Wear a medical alert device or keep cell phone in your pocket ? Use night lights, especially areas near a bathroom ? Keep the items you use often within reach on a small stool or end table ? Use an assistive device such as walker or cane, as directed by provider/physical therapy ? Use a non-slip mat and grab bars in your bathroom. Look for home health sections for best options Other Areas to Focus On ? Exercise and nutrition: Regular exercise or taking a falls prevention class are great ways improve strength and balance. Don t forget to stay hydrated and bring a snack! ? Medicine side effects: Some medicines can make you sleepy or dizzy, which could cause a fall. Ask your healthcare provider about the side effects your medicines could cause. Be sure to let them know if you take any vitamins or supplements as well. ? Tripping hazards: Remove items you could trip on, such as loose mats, rugs, cords, and clutter. Wear closed toe shoes with rubber soles. ? Health and wellness: Get regular checkups with your healthcare provider, plus routine vision and hearing screenings. Talk with your healthcare provider about: o Your medicines and the possible side effects - bring them in a bag if that is easier! o Problems with balance or feeling dizzy o Ways to promote bone health, such as Vitamin D and calcium supplements o Questions or concerns about falling *Ask your healthcare team if you have questions [facility]2021 documented in this encounter [facility] Work Phone: 05-07-2024 Miscellaneous Notes Associated Problem(s): Congestive heart failure, unspecified HF chronicity, unspecified heart failure type documented in this encounter [facility] Work Phone: 04-29-2024 Note Patient: Chasity Currie Date of : 1950 (73 y.o.) PCP: Eben Vo MD Procedures ASSESSMENT/PLAN: Chasity Pino 73 y.o. male with history of recurrent warts of both feet. Pes planovalgus foot structure bilateral feet. History of tarsometatarsal joint fusion on the right foot. Plan: I debrided the warts of the lateral side of the fifth metatarsal base and the right heel. I treated both lesions with Histofreezer 30 seconds. Applied aperture pad to take pressure off both lesions. I advised patient to wear power step or better form type orthotics. Patient to reappoint in 3 weeks. Assessment & plan notes cannot be loaded without a specified hospital service. SUBJECTIVE: History Since Last Visit: Patient 73-year-old male who comes in for bilateral lesions of the feet. Patient relates the right hand became painful as well as the left lateral fifth metatarsal base since I saw him last. Patient does have a history of verruca in the past. Patient is also had a history of calluses which were debrided at last visit. 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 Patient been going to physical therapy. Patient has not been wearing his brace on the left ankle. Patient with the brace aggravate the right knee. Review of Systems: OBJECTIVE: Physical Examination: Integument-patient has white papillomatous lesions with pinpoint bleeders and pain on yzed-lr-xrld squeeze test on the plantar aspect the right heel and base the fifth metatarsal of the left foot. Neuro-intact bilateral feet. Musculoskeletal-patient has decreased medial longitudinal arches both feet. Patient has a fusion of the tarsometatarsal joint on the right foot. Patient does have some minor bony prominence reforming on the lateral side of the fifth metatarsal base left foot. Vascular-DP PT pulse are palpable bilateral feet. Cap refill times less than 3 seconds the feet are warm to touch. BP 130/71 (BP Location: Left arm, Patient Position: Sitting, BP Cuff Size: Adult) Pulse 65 Temp 97.9 degrees F (36.6 degrees C) (Oral) Laboratory and Additional Data Reviewed: Reviewed:[id number]} XR Foot Right 3+ Views (Standard) X-rays 3 views right foot: There is significant arthritis of the fourth and fifth metatarsal cuboid joints, talonavicular and naviculocuneiform joints. There is previous arthrodesis of the second third metatarsal cuneiforms. Inferior calcaneal spur noted. AUTHENTICATED BY REJI ROSE, ON 04/29/2024 14:21:57 [facility] 04-29-2024 History of Present illness Narrative Patient: Chasity Pino Date of : 1950 (73 y.o.) PCP: Eben Vo MD Procedures ASSESSMENT/PLAN: Chasity Pino 73 y.o. male with history of recurrent warts of both feet. Pes planovalgus foot structure bilateral feet. History of tarsometatarsal joint fusion on the right foot. Plan: I debrided the warts of the lateral side of the fifth metatarsal base and the right heel. I treated both lesions with Histofreezer 30 seconds. Applied aperture pad to take pressure off both lesions. I advised patient to wear power step or better form type orthotics. Patient to reappoint in 3 weeks. Assessment & plan notes cannot be loaded without a specified hospital service. SUBJECTIVE: History Since Last Visit: Patient 73-year-old male who comes in for bilateral lesions of the feet. Patient relates the right hand became painful as well as the left lateral fifth metatarsal base since I saw him last. Patient does have a history of verruca in the past. Patient is also had a history of calluses which were debrided at last visit. 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 Patient been going to physical therapy. Patient has not been wearing his brace on the left ankle. Patient with the brace aggravate the right knee. Review of Systems: OBJECTIVE: Physical Examination: Integument-patient has white papillomatous lesions with pinpoint bleeders and pain on awvr-va-iuqz squeeze test on the plantar aspect the right heel and base the fifth metatarsal of the left foot. Neuro-intact bilateral feet. Musculoskeletal-patient has decreased medial longitudinal arches both feet. Patient has a fusion of the tarsometatarsal joint on the right foot. Patient does have some minor bony prominence reforming on the lateral side of the fifth metatarsal base left foot. Vascular-DP PT pulse are palpable bilateral feet. Cap refill times less than 3 seconds the feet are warm to touch. BP 130/71 (BP Location: Left arm, Patient Position: Sitting, BP Cuff Size: Adult) Pulse 65 Temp 97.9 F (36.6 C) (Oral) Laboratory and Additional Data Reviewed: Reviewed:[id number]} XR Foot Right 3+ Views (Standard) X-rays 3 views right foot: There is significant arthritis of the fourth and fifth metatarsal cuboid joints, talonavicular and naviculocuneiform joints. There is previous arthrodesis of the second third metatarsal cuneiforms. Inferior calcaneal spur noted. documented in this encounter [facility] 04-12-2024 Note Patient: Chasity Currie Date of : 1950 (73 y.o.) PCP: Eben Vo MD Procedures I debrided toenails 1 through 5 bilateral feet with nail nippers. I debrided the callus on the lateral side of the base of the fifth metatarsal left foot #15 blade handle. ASSESSMENT/PLAN: Chasity Pino 73 y.o. male with history of degenerative arthritis of the right midfoot. Onychomycosis toenails 1 through 5 bilateral feet. Plan: Patient was advised to wear his good supportive orthotics on both feet. I believe patient's right foot arthritis is acting up due to him favoring his right knee and has been replaced in the last 2 months. I advised patient to return to his orthopedic surgeon to discuss the issues. The warm swollen painful right knee could be a result of an infection, gout or causalgia. If it is determined that there is no infection patient would be eligible for a cortisone shot in the right foot. Reappoint 3 months for nail care otherwise. Assessment & plan notes cannot be loaded without a specified hospital service. SUBJECTIVE: History Since Last Visit: Patient is 73-year-old male seen at the office who comes in complaining of arthritic type symptoms of his right midfoot. Patient had right knee replacement in early February over in [place], [place]. He relates it is extremely painful warm and swollen. His orthopedic physician sent him to pain management for possible causalgia. Patient like to have his toenails trimmed on both feet and the callus of the left foot. Review of Systems: OBJECTIVE: Physical Examination: Integument-there is a callus on the lateral side of the fifth metatarsal base left foot. Toenails 1 through 5 are thick yellow dystrophic crumbly painful subungual debris. There is no acute redness warmth or swelling in either foot. Neuro-intact bilateral feet. Musculoskeletal-patient has pain over the talonavicular joint on the left foot. There is a fusion of the second third metatarsal cuneiform joints that are nonpainful on the left foot. Patient has some pain over the fourth and fifth metatarsal base cuboid articulation. Patient's right knee was extremely warm swollen and painful in comparison to his left knee.. Vascular-DP and PT pulses are palpable bilateral feet. Capillary fill time is less than 3 seconds the feet are warm to touch. BP 121/71 (BP Location: Right arm, Patient Position: Sitting, BP Cuff Size: Adult) Pulse 79 Temp 98.1 degrees F (36.7 degrees C) (Temporal) Laboratory and Additional Data Reviewed: Reviewed:[id number]} XR Foot Right 3+ Views (Standard) X-rays 3 views right foot: There is significant arthritis of the fourth and fifth metatarsal cuboid joints, talonavicular and naviculocuneiform joints. There is previous arthrodesis of the second third metatarsal cuneiforms. Inferior calcaneal spur noted. AUTHENTICATED BY REJI ROSE, ON 04/12/2024 17:13:01 [facility] 04-12-2024 History of Present illness Narrative Patient: Chasity Pino Date of : 1950 (73 y.o.) PCP: Eben Vo MD Procedures I debrided toenails 1 through 5 bilateral feet with nail nippers. I debrided the callus on the lateral side of the base of the fifth metatarsal left foot #15 blade handle. ASSESSMENT/PLAN: Chasity Pino 73 y.o. male with history of degenerative arthritis of the right midfoot. Onychomycosis toenails 1 through 5 bilateral feet. Plan: Patient was advised to wear his good supportive orthotics on both feet. I believe patient's right foot arthritis is acting up due to him favoring his right knee and has been replaced in the last 2 months. I advised patient to return to his orthopedic surgeon to discuss the issues. The warm swollen painful right knee could be a result of an infection, gout or causalgia. If it is determined that there is no infection patient would be eligible for a cortisone shot in the right foot. Reappoint 3 months for nail care otherwise. Assessment & plan notes cannot be loaded without a specified hospital service. SUBJECTIVE: History Since Last Visit: Patient is 73-year-old male seen at the office who comes in complaining of arthritic type symptoms of his right midfoot. Patient had right knee replacement in early February over in [place], [place]. He relates it is extremely painful warm and swollen. His orthopedic physician sent him to pain management for possible causalgia. Patient like to have his toenails trimmed on both feet and the callus of the left foot. Review of Systems: OBJECTIVE: Physical Examination: Integument-there is a callus on the lateral side of the fifth metatarsal base left foot. Toenails 1 through 5 are thick yellow dystrophic crumbly painful subungual debris. There is no acute redness warmth or swelling in either foot. Neuro-intact bilateral feet. Musculoskeletal-patient has pain over the talonavicular joint on the left foot. There is a fusion of the second third metatarsal cuneiform joints that are nonpainful on the left foot. Patient has some pain over the fourth and fifth metatarsal base cuboid articulation. Patient's right knee was extremely warm swollen and painful in comparison to his left knee.. Vascular-DP and PT pulses are palpable bilateral feet. Capillary fill time is less than 3 seconds the feet are warm to touch. BP 121/71 (BP Location: Right arm, Patient Position: Sitting, BP Cuff Size: Adult) Pulse 79 Temp 98.1 F (36.7 C) (Temporal) Laboratory and Additional Data Reviewed: Reviewed:[id number]} XR Foot Right 3+ Views (Standard) X-rays 3 views right foot: There is significant arthritis of the fourth and fifth metatarsal cuboid joints, talonavicular and naviculocuneiform joints. There is previous arthrodesis of the second third metatarsal cuneiforms. Inferior calcaneal spur noted. documented in this encounter [facility] 02-23-2024 Evaluation note Diagnosis Onset Date Resolution Osteoarthritis of right knee acute February 22 7:34am Status post total right knee replacement acute February 22 7:34am Atrial fibrillation with RVR acute May 21, 2024 11:27am Nonischemic cardiomyopathy inactive May 21, 2024 11:27am Paroxysmal atrial fibrillation inactive May 21, 2024 11:27am [facility] Work Phone: 1(667) 506-444301-06-2025 Evaluation note* Diagnosis Onset Date Resolution Status Admit Date Osteoarthritis of right knee acute February 23, 2024 7:34am Status post total right knee replacement acute February 22 7:34am Atrial fibrillation with RVR acute May 21, 2024 11:27am Nonischemic cardiomyopathy inactive May 21, 2024 11:27am [facility] Work Phone: 1(950) 664-408301-03-2025 Instructions* Patient Instructions* Abelardo Rivera MD - 02/20/2024 1:54 PM EST If you have any questions please contact our office at [phone]. After office hours or on the weekend, please call Dr. Rivera on his cell phone at [phone]. [facility] NoteDate of Procedure 02/20/2024. Sack Filler Information Grazing Examiner: ramiro. Reliability Right Eye Good. Left Eye Good. Interpretation Right Eye Nasal step defect, Arcuate defect (superior). Left Eye Nasal step defect, Arcuate defect (superior and inferior). Interval Change Right Eye Initial. Left Eye Initial.[id number] NoteHNO ID: [id number] Author: ABELARDO RIVERA MD Service: ? Author Type: Physician Type: Progress Notes Filed: 02/20/2024 13:55 Note Text: ASSESSMENT/PLAN: 1. Glaucoma suspect of both eyes - ICD9: 365.00, ICD10: H40.003 (primary diagnosis) 2. Optic cupping of both eyes - ICD9: 377.14, ICD10: H47.233 - Glaucoma suspect based on optic cupping - Visual Field loss both eyes, patient recommended to see Dr. Lauren Rene for further evaluation 3. Pseudophakia of both eyes - ICD9: V43.1, ICD10: Z96.1 - Intraocular lens in good position 4. High myopia, both eyes - ICD9: 367.1, ICD10: H52.13 - Monitor 5. Atrial fibrillation, unspecified type (HCC) - ICD9: 427.31, ICD10: I48.91 6. Essential hypertension - ICD9: 401.9, ICD10: I10 7. Benign prostatic hyperplasia without lower urinary tract symptoms - ICD9: 600.00, ICD10: N40.0 - Continue to monitor with primary care physician. I have confirmed and edited as necessary the relevant HPI, ophthalmic history, ROS, and the neuro exam findings as obtained by others. I have seen and examined Chasity Pino. I have discussed the case and the management of this patient's care with the Resident/Fellow, if applicable. I also have reviewed and agree with the assessment and plan as stated above and agree with all of its relevant components.[facility] History of Present illness Narrative* Abelardo Rivera MD - 02/20/2024 1:09 PM EST ASSESSMENT/PLAN: 1. Glaucoma suspect of both eyes - ICD9: 365.00, ICD10: H40.003 (primary diagnosis) 2. Optic cupping of both eyes - ICD9: 377.14, ICD10: H47.233 - Glaucoma suspect based on optic cupping - Visual Field loss both eyes, patient recommended to see Dr. Lauren Rene for further evaluation 3. Pseudophakia of both eyes - ICD9: V43.1, ICD10: Z96.1 - Intraocular lens in good position 4. High myopia, both eyes - ICD9: 367.1, ICD10: H52.13 - Monitor 5. Atrial fibrillation, unspecified type (HCC) - ICD9: 427.31, ICD10: I48.91 6. Essential hypertension - ICD9: 401.9, ICD10: I10 7. Benign prostatic hyperplasia without lower urinary tract symptoms - ICD9: 600.00, ICD10: N40.0 - Continue to monitor with primary care physician. I have confirmed and edited as necessary the relevant HPI, ophthalmic history, ROS, and the neuro exam findings as obtained by others. I have seen and examined Chasity Pino. I have discussed the case and the management of this patient's care with the Resident/Fellow, if applicable. I also have reviewed and agree with the assessment and plan as stated above and agree withall of its relevant components. [facility] Medical Records Department [address] [place] [id number] History Physical Exam 02/16/24 1255 MR#: [id number] Acct: [id number] Name: CHASITY PINO Rep #: [id number] : 1950 73 From: Bin SHARMA PA-C PCP: Dr. Eben Vo MD Status:[facility] Location: [place] [address] History and Physical History and Physical Patient Name: Chasity Pino : 1950From:??? BIN PITTMAN PA-C DATE OF PRE-OPERATIVE EXAM: 02/16/2024 DATE OF SURGERY:??? 02/23/2024 SCHEDULED PROCEDURE:??? Robotic-assisted right total knee arthroplasty HISTORY OF PRESENT ILLNESS: Preoperative history and physical exam was performed on February 16, 2024.??? This is a 73-year-old male who has had ongoing pain since 2020.??? Patient's pain has been intermittent and dull.??? Painis increased with going up and down stairs.??? Patient has noticed a decreased strength with his leg.??? He feels unsafe going up and down stairs.??? Patient has tried ice, heat, elevation with minimal relief.??? He has had previous corticosteroid injection without relief.??? He has previous viscose supplementation injection in which the effectiveness of these injections has diminished over the years.??? The last injection only gave a very short period of relief.??? He denies past history of surgery on the right knee.??? He has tried oral medications without relief.??? After failing conservative measures discussing all treatment options with Dr. Myles Iraheta, the patient does wish to proceed with a right total knee arthroplasty.??? Patient has obtain surgical clearance from the improvement engineer Dr. Brown.??? Machine Compositor recommend stopping the Rivaroxaban 2 days prior to surgery.??? We are obtaining surgical clearance from her primary care provider Dr. Wes Boone.??? Patient denies any recent chest pain, shortness of breath, fevers chills or recent infections.??? Denies past history of DVT.??? Patient has medical history pertinent for history of atrial fibrillation, coronary artery disease, chronic kidney disease, benign prostatic hyperplasia, nonischemic cardiomyopathy, congestive heart failure, and insomnia. ??? REVIEW OF SYSTEMS: Review Of Systems: Constitutional: Denies anorexia, change in appetite, fever, difficulty sleeping, weight change. Cardiovasular: Reports irregular heartbeat, but denies chest pain, heart murmur and peripheral vascular disease. Respiratory: Denies asthma, cough, pneumonia, sleep apnea, shortness of breath, tuberculosis and wheezing. Gastrointestinal: Denies constipation, diarrhea, heartburn, nausea, rectal itching, bloody stools and vomiting. Genitourinary: Denies incontinence. Musculoskeletal: Reports ambulatory dysfunction, gait disturbance, pain, trouble walking and weakness. Skin: Denies Raynaud's, history of shingles and tattoo. Neurological: Denies ambulatory dysfunction, dizziness, numbness/tingling and tremor. Psychiatric: Denies anxiety, depression, insomnia, mental illness and stress. Hematologic/Lymphatic: Reports bleeding/bruising tendency, but denies anemia and past transfusion. Reviewed and updated. PAST MEDICAL HISTORY: Advance Care Plan: No Advance Directives Effective Date: 03/12/2018 Past Medical History: Medical Problems: Arthritis, A-Fib Covid- 19 - (03/2020) VACCINATED Congestive Heart Failure (CHF), Coronary Artery Disease (CAD), Kidney Disease/Renal Failure, BPH, nonischemic cardiomyopathy, Insomnia Accidents: Fracture - BROKEN FOOT (19 BONES) 01-17-07 Dislocation Of RT Shoulder- Numerous Times RT Thumb Injury With Foreign Bodies - 07/19/20 Surgical Hx: Arthroscopies - LEFT 1993 OLIVIA ARIAS RT VIAN [place] LEFT 2001 LETICIA SIMS LEFT 2001 LETICIA SIMS Right Foot - [facility] 02-07-08 [facility] REMOVAL OF HARDWARE 01-17-10 [facility] FUSION AND IMPLANT OF WEDGES 01-29-10 [facility] REMOVAL OF HARDWARE Tonsillectomy - 1957 Appendectomy - 1969 Knee Replacement LT - (05/09/2015) [email or web address] LT Knee Polyethylene Exchange/Scar Tissue Debridement - (12/19/2015) [email or web address] RT CTR - (03/25/2018) [email or web address] RT Thumb Trigger Release - (02/12/2019) [facility] @ [facility] Carpal Tunnel Release LT - (05/05/2020) [facility] AT [facility] RT Bone Spur - (04/11/2021) Carpal Tunnel Release RT, Knee Arthroscopy RT, Knee Arthroscopy LT, cardioversion, heart cath Anesthesia Complications: None Assistive Devices: Glasses Reviewed and updated. 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 Personal Habits:??? Cigarette Use: Never Smoked Cigarettes.Smokeless Tobacco: Current Smokeless Tobacco User - occasional .E-Cigarette Use: Never used.Alcohol: Occasionally.Drug Use: Denies Us e.Enjoy Exercising: Exercises 1-3 X/Week. Reviewed and updated. (more content not included)...[facility] 02-09-2024 Instructions* Patient Instructions* Abelardo Rivera MD - 02/09/2024 11:03 AM EST If you have any questions please contact our office at [phone]. After office hours or on the weekend, please call Dr. Rivera on his cell phone at [phone]. [facility] NoteHNO ID: [id number] Author: ABELARDO RIVERA MD Service: ? Author Type: Physician Type: Progress Notes Filed: 02/09/2024 11:04 Note Text: ASSESSMENT/PLAN: 1. Glaucoma suspect of both eyes - ICD9: 365.00, ICD10: H40.003 (primary diagnosis) 2. Optic cupping of both eyes - ICD9: 377.14, ICD10: H47.233 - Glaucoma suspect based on optic cupping - Return for visual field 3. Pseudophakia of both eyes - ICD9: V43.1, ICD10: Z96.1 - Intraocular lens in good position 4. High myopia, both eyes - ICD9: 367.1, ICD10: H52.13 - Monitor 5. Atrial fibrillation, unspecified type (HCC) - ICD9: 427.31, ICD10: I48.91 6. Essential hypertension - ICD9: 401.9, ICD10: I10 7. Benign prostatic hyperplasia without lower urinary tract symptoms - ICD9: 600.00, ICD10: N40.0 - Continue to monitor with primary care physician. I have confirmed and edited as necessary the relevant HPI, ophthalmic history, ROS, and the neuro exam findings as obtained by others. I have seen and examined Chasity Pino. I have discussed the case and the management of this patient's care with the Resident/Fellow, if applicable. I also have reviewed and agree with the assessment and plan as stated above and agree with all of its relevant components.[facility] History of Present illness Narrative* Abelardo Rivera MD - 02/09/2024 11:01 AM EST ASSESSMENT/PLAN: 1. Glaucoma suspect of both eyes - ICD9: 365.00, ICD10: H40.003 (primary diagnosis) 2. Optic cupping of both eyes - ICD9: 377.14, ICD10: H47.233 - Glaucoma suspect based on optic cupping - Return for visual field 3. Pseudophakia of both eyes - ICD9: V43.1, ICD10: Z96.1 - Intraocular lens in good position 4. High myopia, both eyes - ICD9: 367.1, ICD10: H52.13 - Monitor 5. Atrial fibrillation, unspecified type (HCC) - ICD9: 427.31, ICD10: I48.91 6. Essential hypertension - ICD9: 401.9, ICD10: I10 7. Benign prostatic hyperplasia without lower urinary tract symptoms - ICD9: 600.00, ICD10: N40.0 - Continue to monitor with primary care physician. I have confirmed and edited as necessary the relevant HPI, ophthalmic history, ROS, and the neuro exam findings as obtained by others. I have seen and examined Chasity Pino. I have discussed the case and the management of this patient's care with the Resident/Fellow, if applicable. I also have reviewed and agree with the assessment and plan as stated above and agree withall of its relevant components. [facility] NoteDate of Procedure 02/09/2024. C/D Ratio Right Eye 0.8. Left Eye 0.65. Disc Right Eye Cupping. Left Eye Cupping. Macula Right Eye Normal. Left Eye Normal. Periphery Right Eye Normal. Left Eye Normal.[id number] NoteDate of Procedure 02/09/2024. Sack Filler Information Grazing Examiner: .[id number] History of Present illness Narrative* Eben Vo MD - 02/06/2024 9:00 AM EST Subjective Patient ID: Rl Pino is a 73 y.o. male who presents for Pre-op Exam. HPI Preoperative evaluation for total knee replacement. He has been cleared by his improvement engineer. Known to have a nonischemic cardiomyopathy which had resolved with normal ejection fraction. Never smoker,normal labs. Tolerates activity far in excess of 4 METS Additionally discussed insomnia and anxiety. Begin trazodone 50 nightly recheck 3 months Hypothyroidism TSH is above 3 on 75 mcg. Will increase to 88 mcg daily recheck 3 months Review of Systems General-no fatigue weight to within 10 pounds ENT no problems with vision swallowing Cardiac no chest pains palpitations change in exercise tolerance or capacity Pulmonary no cough shortness of breath GI no heartburn or abdominal pain Musculoskeletal multiple joint pains Objective BP 120/60 Pulse 95 Wt 69.4 kg (153 lb) SpO2 94% BMI 23.26 kg/m Physical Exam General: Alert, No acute distress. Appears stated age Eye: Pupils are equal, round and reactive to light, Extraocular movements are intact, Normal conjunctiva. Neck: Supple, Non-tender, No carotid bruit, No jugular venous distention, No lymphadenopathy, No thyromegaly. Respiratory: Lungs are clear to auscultation, Respirations are non-labored, Breath sounds are equal. Cardiovascular: Normal rate, Regular rhythm, No murmur. Gastrointestinal: Soft, Non-tender, No organomegaly. No solid or pulsatile mass Integumentary: Warm, Dry. No concerning lesions on exposed areas Neurologic: Alert, Oriented. Gross and fine motor intact, CN 2-12 intact Psychiatric: Cooperative, Appropriate mood & affect. Assessment/Plan Problem List Items Addressed This Visit None Visit Diagnoses Codes Primary insomnia - Primary F51.01 Relevant Medications traZODone (Desyrel) 50 mg tablet Acquired hypothyroidism E03.9 Relevant Medications levothyroxine (Synthroid, Levoxyl) 88 mcg tablet Other Relevant Orders Follow Up In Primary Care Thyroid Stimulating Hormone Patient is cleared for the planned procedure without further study. documented in this [facility] Work Phone: [phone]) 155-399712-19-2024 NotePatient: Chasity Pino Date of : 1950 (73 y.o.) PCP: Eben Vo MD Procedures I debrided toenails 1 through 5 bilateral feet with nail nippers. I debrided the callus off the lateral side of the fifth metatarsal base left foot. ASSESSMENT/PLAN: Chasity Pino 73 y.o. male with history of left lateral ankle instability. Left rear foot varus. Onychomycosis toenails 1 through 5 bilateral feet. History of tarsometatarsal joint fusion of the right foot. Plan: I prescribed 1 none articulating AFO for the left ankle. This will control more than 2 planes of motion, needs to be custom made and is designed for long-term use. Patient was told if he is not happy with this then surgery to either realign the heel or to fuse the rear foot/ankle will be the next step. Patient needs an MRI of the left ankle for surgical planning and to evaluate lateral ankle ligaments along with the peroneal tendons. Patient currently is undergoing right knee replacement next month. Reappoint in 3 months. Assessment & plan notes cannot be loaded without a specified hospital service. SUBJECTIVE: History Since Last Visit: Patient 73-year-old male seen at the office complaining of left lateral ankle instability. Patient is tired of wearing his kyfl-ofm-anzjphx brace and wanted to talk about other options. Patient did inform me the left ankle is probably flared up because he has been favoring his right knee which needs replaced. Patient is undergoing knee replacement surgery in [place] next month. Patient also like to have his toenails trimmed and his calluses of both feet today. Patient denied any lower back problems or radiculopathy extending from his back. Review of Systems: OBJECTIVE: Physical Examination: Integument-toenails 1 through 5 bilateral feet were thick yellow dystrophic crumbly with subungual debris. Patient had calluses on 8 the plantar aspect the fifth metatarsal base left foot. Neuro-intact bilateral feet. Musculoskeletal-patient has weakness with left lateral ankle eversion. Patient can dorsiflex, plantarflex and invert the left foot without much difficulty. Patient does have a slight rear foot varus of the left foot. Patient has a decreased medial longitudinal arch of both feet. Patient does have a lateral bony prominence reoccurring on fifth metatarsal base left foot. Vascular-DP PT pulses are palpable bilateral feet. Capillary fill time is less than 3 seconds and the feet are warm to touch. BP 126/63 (BP Location: Right arm, Patient Position: Sitting, BP Cuff Size: Adult) Pulse (!) 47 Temp 98.2 degrees F (36.8 degrees C) (Infrared) Laboratory and Additional Data Reviewed: Reviewed:[id number]} XR Ankle Left 3+ Views (Standard) X-rays 3 views left ankle: There is no signs of fracture. There is some minor joint space narrowing consistent with the degenerative arthritis. AUTHENTICATED BY REJI ROSE, ON 02/05/2024 12:34:43[facility] [id number] History of Present illness Narrative* Reji Rose, DPM - 02/05/2024 12:26 PM EST Patient: Chasity Pino Date of : 1950 (73 y.o.) PCP: Eben Vo MD Procedures I debrided toenails 1 through 5 bilateral feet with nail nippers. I debrided the callus off the lateral side of the fifth metatarsal base left foot. ASSESSMENT/PLAN: Chasity Pino 73 y.o. male with history of left lateral ankle instability. Left rear foot varus. Onychomycosis toenails 1 through 5 bilateral feet. History of tarsometatarsal joint fusion of the right foot. Plan: I prescribed 1 none articulating AFO for the left ankle. This will control more than 2 planes of motion, needs to be custom made and is designed for long-term use. Patient was told if he is not happy with this then surgery to either realign the heel or to fuse the rear foot/ankle will be the next step. Patient needs an MRI of the left ankle for surgical planning and to evaluate lateral ankle ligaments along with the peroneal tendons. Patient currently is undergoing right knee replacement next month. Reappoint in 3 months. Assessment & plan notes cannot be loaded without a specified hospital service. SUBJECTIVE: History Since Last Visit: Patient 73-year-old male seen at the office complaining of left lateral ankle instability. Patient is tired of wearing his kspa-oxn-rfirdwl brace and wanted to talk about other options. Patient did inform me the left ankle is probably flared up because he has been favoringhis right knee which needs replaced. Patient is undergoing knee replacement surgery in [place] nextmonth. Patient also like to have his toenails trimmed and his calluses of both feet today. Patient denied any lower back problems or radiculopathy extending from his back. Review of Systems: OBJECTIVE: Physical Examination: Integument-toenails 1 through 5 bilateral feet were thick yellow dystrophic crumbly with subungual debris. Patient had calluses on 8 the plantar aspect the fifth metatarsal base left foot. Neuro-intact bilateral feet. Musculoskeletal-patient has weakness with left lateral ankle eversion. Patient can dorsiflex, plantarflex and invert the left foot without much difficulty. Patient does have a slight rear foot varus of the left foot. Patient has a decreased medial longitudinal arch of both feet. Patient does have alateral bony prominence reoccurring on fifth metatarsal base left foot. Vascular-DP PT pulses are palpable bilateral feet. Capillary fill time is less than 3 seconds and the feet are warm to touch. BP 126/63 (BP Location: Right arm, Patient Position: Sitting, BP Cuff Size: Adult) Pulse (!) 47 Temp 98.2 F (36.8 C) (Infrared) Laboratory and Additional Data Reviewed: Reviewed:[id number]} XR Ankle Left 3+ Views (Standard) X-rays 3 views left ankle: There is no signs of fracture. There is some minor joint space narrowing consistent with the degenerative arthritis. documented in this [id number] NoteSubjective :Pt is a 73 y.o. male seen at the office complaining of painful fungal toe nails . Pt is wanting treatment today. Patient has a Zaire keratoma/callus forming on the lateral side of the fifth metatarsal base left foot. Objective: Int: Toe nails 12, 3, 4, or 5both feet Thick, yellow, dystrophic, crumbly , painful with subungal debris Neuro: Intact Vas: DP - palpable, both feetPTpalpable, both feet Patient is a decreased medial longitudinal arch of both feet. Patient has lateral bony prominence of the fifth metatarsal base left foot. Assessment: Onychomycosis toenails 1 through 5 bilateral feet. Callus on the fifth metatarsal base left foot. Plan: I debrided toe nails 1-5 moses feet with nail nippers. I also discussed treatment for the nail fungus which includes topical , oral or surgical removal. Prescribed Penlac for the fungal nail to be applied daily and remove weekly. Debride the callus of the fifth metatarsal base left foot. Continue with urea cream on callus on left foot. RTC 3 months. Procedures AUTHENTICATED BY REJI ROSE, ON 11/13/2023 11:53:07[facility]09-26-2024 History of Present illness Narrative* Ashley Cazares, DO - 11/13/2023 9:30 AM EDT Subjective Patient ID: Chasity Cheryl Boaz Rl is a 73 y.o. male who presents for Follow-up (4 month followup - still experiencing bloating/gas. ). HPI Rl is seen today in follow-up for small intestinal bacterial overgrowth he did get somewhat better after treatment with neomycin and Flagyl but bloating never went completely away symptoms have improved by 60%. He states he still has occasions of bloating and abdominal pain describes a sharp pain in his substernal region just above his xiphoid process which is occurred once since his last visit. He can identify no trigger foods. Review of Systems Constitutional: Negative. HENT: Negative. [...] Affect: Mood normal. Behavior: Behavior normal. Assessment/Plan Diagnoses and all orders for this visit: Abdominal bloating Small intestinal bacterial overgrowth Flatulence/gas pain/belching Continue probiotic this point we will hold off on retreatment will follow-up in 6 months time sooner if new symptoms develop Ashley Cazares DO 11/13/23 5:02 PM documented [facility] this [facility] Work Phone: [phone] 209-549507-11-2024 NoteSubjective :Pt is a 73 y.o. male seen at the office complaining of painful fungal toe nails . Pt is wanting treatment today. Patient would also like the callus trimmed off the lateral side of the fifth metatarsal base left foot. 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 Patient is able to wear his ankle brace on the left with his Monica shoes. Objective: Int: Toe nails 1both feet Thick, yellow, dystrophic, crumbly , painful with subungal debris Neuro: Intact Vas: DP - palpable, both feetPTpalpable, both feet Assessment: lesser than 6 painful fungal toe nails. Left lateral ankle instability Plan: I debrided toe nails 1-5 moses feet with nail nippers. I debrided the callus on the lateral side of the fifth metatarsal base left foot. I also discussed treatment for the nail fungus which includes topical , oral or surgical removal. Continue with left ankle brace and wearing his Monica shoes. RTC 3 months. Procedures AUTHENTICATED BY REJI ROSE, ON 08/28/2023 12:10:16[facility]07-11-2024 History of Present illness Narrative* Reji Rose DPM - 08/28/2023 12:08 PM EDT Subjective :Pt is a 73 y.o. male seen at the office complaining of painful fungal toe nails . Pt iswanting treatment today. Patient would also like the callus trimmed off the lateral side of the fifth metatarsal base left foot. 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 Patient is able to wear his ankle brace on the left with his Monica shoes. Objective: Int: Toe nails 1both feet Thick, yellow, dystrophic, crumbly , painful with subungal debris Neuro: Intact Vas: DP - palpable, both feetPTpalpable, both feet Assessment: lesser than 6 painful fungal toe nails. Left lateral ankle instability Plan: I debrided toe nails 1-5 moses feet with nail nippers. I debrided the callus on the lateral side of the fifth metatarsal base left foot. I also discussed treatment for the nail fungus which includes topical , oral or surgical removal. Continue with left ankle brace and wearing his Monica shoes. RTC 3 months. Procedures documented in this [id number] History of Present illness Narrative* Ashley Cazares, - 07/17/2023 4:00 PM EDT Subjective Patient ID: Chasity Shine is a 73 y.o. male who presents for Follow-up (Finished Flagyl the first week of june and was feeling better. Pt reports symptoms of excessive gas are starting tocome back. ) and Bloated. HPI temporary relief with Flagyl alone. Symptoms have improved but crept back slowly over the last 2 weeks. Review of Systems Constitutional: Negative. HENT: Negative. [...] and Rhythm: Normal rate and regular rhythm. Heart sounds: Normal heart sounds. Pulmonary: Effort: [...] Affect: Mood normal. Behavior: Behavior normal. Assessment/Plan Diagnoses and all orders for this visit: Small intestinal bacterial overgrowth - neomycin (Mycifradin) 500 mg tablet; Take 2 tablets (1,000 mg) by mouth 2 times a day for 14 days. - metroNIDAZOLE (Flagyl) 250 mg tablet; Take 1 tablet (250 mg) by mouth 3 times a day for 14 days. Will retreat with neomycin and metronidazole for methane producing bacteria that may be causing SIBO. Advised him that this should be the last round for approximately 4 months Ashley Cazares DO 07/17/23 3:53 PM documented in this [facility] Work Phone: [phone]) 468-790304-18-2024 History of Present illness Narrative* Ashley Cazares, DO - 06/05/2023 8:30 AM EDT Subjective Patient ID: Chasity Shine is a 73 y.o. male who presents for Follow-up (Since last visit has had Gallbladder US, EGD- no biopsies taken, HIDA scan, blood work for celiac testing and CT scan. ), Gas, and Nausea. HPI Rl is seen today at his request. He is initially seen 1 year ago with abdominal bloating belching and eructation. Symptoms were improving after correction of his atrial fibrillation remains in sinus rhythm but remains on anticoagulation. His overall heart function is improved with therapy his EF is now 40% he is back to working although he cannot work unsupervised. He did seek additional appointment and evaluation at [facility] underwent gallbladder ultrasound, CT scan of abdomen pelvis and upper endoscopy. CT abdomen pelvis was unremarkable as was his gallbladder ultrasound and his upper endoscopy was essentially normal although no biopsies were taken. Symptoms persist with bloating excessive eructation belching after meals which persist throughout the day. His largest complaint is that of bloating which seems to improve if he is working and not paying attention to it. This would indicate there might be some form of aerophagia or behavior relatedto his symptoms. Review of Systems Constitutional: Negative. HENT: Negative. Eyes: Negative. Respiratory: Negative. Cardiovascular: Negative. Gastrointestinal: Positive for abdominal distention. Endocrine: Negative. Genitourinary: Negative. Musculoskeletal: Negative. Neurological: Negative. Hematological: Negative. Psychiatric/Behavioral: Negative. Objective Physical Exam Vitals and nursing note reviewed. Constitutional: Appearance: Normal appearance. HENT: Head: Normocephalic. Mouth/Throat: Mouth: Mucous membranes are moist. Pharynx: Oropharynx is clear. Eyes: Pupils: Pupils are equal, round, and reactive to light. Cardiovascular: Rate and Rhythm: Normal rate and regular rhythm. Heart sounds: Normal heart sounds. Pulmonary: Effort: [...] Affect: Mood normal. Behavior: Behavior normal. Assessment/Plan Diagnoses and all orders for this visit: Abdominal bloating - metroNIDAZOLE (Flagyl) 250 mg tablet; Take 1 tablet (250 mg) by mouth 3 times a day for 14 days. Small intestinal bacterial overgrowth (SIBO) - metroNIDAZOLE (Flagyl) 250 mg tablet; Take 1 tablet (250 mg) by mouth 3 times a day for 14 days. I informed Rl that it is reasonable to treat him for small intestinal bacterial overgrowth. He will need to refrain from alcohol while on Flagyl. If there is no improvement given the behavior watching swallow air and well-child exam this may be aerophagia I advised him that if this treatment failsI would like to place him on BuSpar to see if that improves his symptoms. Stool for H. pylori antigen will be ordered just to assess for possible infection Ashley Cazares DO 06/05/23 5:48 PM documented in this [facility] Work Phone: [phone] 190-824204-11-2024 History of Present illness Narrative* Reji Rose DPM - 05/29/2023 12:16 PM EDT Patient: Chasity Pino Date of : 1950 (73 y.o.) PCP: Eben Vo MD Procedures I debrided toenails 1 through 5 bilateral feet with nail nippers. ASSESSMENT/PLAN: Chasity Pino 73 y.o. male with history of painful onychomycosis of both great toenails. Exostosislateral side of fifth metatarsal base left foot due to rear foot varus deformity. Plan: I debrided the callus off the lateral plantar aspect of the fifth metatarsal base on left foot. 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 Patient's not a great candidate for Bowles calcaneal osteotomy due to his recent cardiomyopathy episode late last fall. I explained to patient that if he is stable in the fall this year I may consider. Patient to reappoint in 3 months Assessment & plan notes cannot be loaded without a specified hospital service. SUBJECTIVE: History Since Last Visit: Patient 73-year-old male seen at the office for left rear foot varus causing lateral ankle instability and pain over the fifth metatarsal base. Patient was also hoping to get his toenails trimmed today today. Review of Systems: OBJECTIVE: Physical Examination: Integument-hallux toenails are thick yellow dystrophic crumbly painful subungual debris. There is acallus on the lateral plantar aspect the fifth metatarsal base of the left foot. Neuro-intact bilateral feet. Musculoskeletal-left heel varus. Patient has a metatarsus adductus .there is a minor anterior drawer and inversion stress instability of the left ankle. Patient has a decreased medial longitudinal arch both feet. Patient has a fused tarsometatarsal joint on the right foot. Patient has decreased medial longitudinal arch bilateral feet. Vascular-DP and PT pulses are 1 of 4 bilateral feet. BP 110/67 (BP Location: Right arm, Patient Position: Sitting, BP Cuff Size: Adult) Pulse (!) 48 Temp 97.9 F (36.6 C) (Temporal) Laboratory and Additional Data Reviewed: Reviewed:[id number]} XR Ankle Left 3+ Views (Standard) X-rays 3 views left ankle: There is no signs of fracture. There is some minor joint space narrowing consistent with the degenerative arthritis. documented in this [id number] History of Present illness Narrative* Eben Vo MD - 05/12/2023 11:00 AM EDT Subjective Patient ID: Rl Pino is a 72 y.o. male who presents for Gas Pains. HPI Belching and farting can have pressure in upper abdomen, sometimes gurgling all night. Had us hida ct egd from fiordaliza and sage and no etio. April 30 did a lot of loab re food allergy showing some response to shellfish. Reviewed the nature of this bloating and belching. Reviewed that swallowed air is the only source for air in the stomach. Does not seem to have a structural problem. Should follow-up with Dr. Cazares to consider whether manometrically or perhaps a prokinetic would or would not be appropriate. I am unable to explain his belching other than pain and anxiety can increase the frequency of swallowing. But with CAT scan EGD does not appear to have a hiatal hernia stricture or any structural abnormality. Additionally reviewed flatus being metabolism of the products of digestion. The history is not consistent with a lot of dairy or explosive diarrhea but rather just flatus. He does not supplement withfiber. And again I do not recognize it is a pathologic condition. Review of Systems As outlined above Objective BP 104/60 Pulse (!) 46 Ht 1.727 m (5' 8) Wt 75.5 kg (166 lb 8 oz) SpO2 95% BMI 25.32 kg/m Physical Exam Heart rate is around 50 lungs are clear. Abdomen is soft no solid or pulsatile masses Assessment/Plan Problem List Items Addressed This Visit ICD-10-CM Flatulence/gas pain/belching - Primary R14.0 As I reviewed with him this needs to be evaluated by specialty care. I do not see where family practice would be likely to solve the problem if gastroenterology and surgery have not. He is not under any treatment for an affective disorder at this time documented in this encounterMad[facility] Work Phone: [phone]) [phone] History of Present illness Narrative* Rose Reji Johann, DPKary - 05/01/2023 12:30 PM EDT Patient: Chasity Pino Date of : 1950 (72 y.o.) PCP: Eben Vo MD Procedures ASSESSMENT/PLAN: Chasity Pnio 72 y.o. male with history of rear foot varus, left lateral ankle instability with callus underneath the fifth metatarsal base. Heel spur pain on right foot doing much better. Plan: I debrided the callus off the fifth metatarsal base left foot. I prescribed dispensed 1 stability ankle brace to be worn on uneven terrain. I told patient physical therapy exercises to strengthen the ankle. Reappoint 1 months Assessment & plan notes cannot be loaded without a specified hospital service. SUBJECTIVE: History Since Last Visit: Patient 72-year-old male who presents today with a new complaint of lateral ankle instability type symptoms on the left lower extremity. Patient states his calluses buildingback up on the fifth metatarsal base left foot. Patient relates the right heel is doing much betterwith heel cushions. Patient has history of atrial fibrillation is on blood thinner therapy. Review of Systems: OBJECTIVE: Physical Examination: Integument-there is a callus along the lateral side of the fifth metatarsal base of the left foot. Neuro-intact bilateral feet. Musculoskeletal-patient has a lateral bony prominence of the fifth metatarsal base left foot. Patient has a slight rear foot varus of the left heel. Patient has a mild anterior drawer inversion stress instability symptoms of the left ankle. There is no pain with ankle joint range of motion. Patientdoes have decreased inversion strength of the left ankle. Patient's Achilles tendon appears to be tight on the left side. Patient has an old fused tarsometatarsal joint with collapsing pes planovalgus foot structure. Vascular-DP PT pulses are palpable bilateral feet. BP (!) 94/55 (BP Location: Left arm, Patient Position: Sitting, BP Cuff Size: Adult) Pulse (!) 41 Temp 97.9 F (36.6 C) (Infrared) Laboratory and Additional Data Reviewed: Reviewed:[id number]} XR Ankle Left 3+ Views (Standard) X-rays 3 views left ankle: There is no signs of fracture. There is some minor joint space narrowing consistent with the degenerative arthritis. documented in this [id number] History of Present illness Narrative* Reji Rose DPM - 04/03/2023 5:32 PM EST Patient: Chasity Pino Date of : 1950 [...] the plantar aspect of the right calcaneal tuberclecorresponding to his heel spur. Patient has decreased medial longitudinal arch in both feet. Right tarsometatarsal joint is stiff from previous injury and arthritis. Vascular-DP PT pulse are 1 of 4 bilateral feet. BP 111/66 (BP Location: Right arm, Patient Position: Sitting, BP Cuff Size: Adult) Pulse (!) 54 Temp 97.1 F (36.2 C) (Temporal) Laboratory and Additional Data Reviewed: Reviewed:[id number]} XR Calcaneus Right 2+ Views (Standard) Xray right heel - There is inferior calcaneal spur. Decreased medial longitudinal arch documented in this [id number] History of Present illness Narrative* Eben Vo MD - 03/18/2023 9:00 AM EST Subjective Reason for Visit: Chasity Pino is an 72 y.o. male here for a Medicare Wellness visit. Past Medical, Surgical, and Family History reviewed and updated in chart. Reviewed all medications by prescribing practitioner or clinical pharmacist (such as prescriptions,OTCs, herbal therapies and supplements) and documented in [...] They discussed using an JOHNY but have decidedagainst starting. He complains of a lot of [...] Medicare Advantage PCP Lucille Gerard RN as Tailor Helper (Case Management) Review of Systems General-no fatigue weight to within 10 pounds ENT no problems with vision swallowing Cardiac no chest pains palpitations change in exercise tolerance or capacity Pulmonary no cough shortness of breath GI no heartburn or abdominal pain but a lot of belching and flatus Musculoskeletal no joint pains Objective Vitals: Pulse (!) 47 Ht 1.727 m (5' 8) Wt 75.1 kg (165 lb 9.6 oz) [...] to touch base and make sure there isnot something we need to follow him more closely for documented in this [facility] Work Phone: [phone] 684-596011-30-2023 History of Present illness Narrative* Ashley Cazares DO - 01/16/2023 2:30 PM EST Subjective Patient ID: Chasity Shine is a 72 y.o. male who presents for Dyspepsia (Has had some heart issues since the beginning of symptoms, had heart cath and cardioversion. Patient is taking omeprazole. Had cardioversion a week ago and symptoms of indigestion is better. Patient reports lots ofgass such as belching and flatulence ). HPI [...] Affect: Mood normal. Behavior: Behavior normal. Assessment/Plan * Ashley Cazares DO - 01/16/2023 2:30 PM EST Subjective Patient ID: Chasity Shine is a 72 y.o. male who presents for Dyspepsia (Has had some heart issues since the beginning of symptoms, had heart cath and cardioversion. Patient is taking omeprazole. Had cardioversion a week ago and symptoms of indigestion is better. Patient reports lots ofgass such as belching and flatulence ). RENETTA [...] of results by telephone [facility] Phone: [phone] History of Present illness Narrative* Eben Vo MD - 12/13/2022 9:00 AM EDT Subjective Patient ID: Rl Pino is a 72 y.o. male who presents for Hospital Follow-up. HPI Increase lasix 40 mgbid,and will re eval coreg dose withn dr mccallum. Reviewed events of last co months reviewed. Gdmt reviewed, afib tx reviewed. Limitation onactivity reivewed Review of Systems Decresed act tolerance Objective BP 106/62 Pulse 96 Ht 1.727 m (5' 8) Wt 76.7 kg (169 lb) SpO2 94% BMI 25.70 kg/m Physical Exam A fib at 90/min, lungs clear, 1+edema Assessment/Plan Problem List Items Addressed This Visit ICD-10-CM Atrial fibrillation (CMS/HCC) I48.91 Relevant Medications carvedilol (Coreg) 3.125 mg tablet Non-ischemic cardiomyopathy (CMS/HCC) - Primary I42.8 Relevant Medications carvedilol (Coreg) 3.125 mg tablet Other Visit Diagnoses Codes Dyspepsia R10.13 [facility] Work Phone: [phone] 945-120110-18-2023 Discharge summary Author Lana Young [facility] December 04, 2022 4:20pm Note Date/Time December 04, 2022 1 2:12pm [facility] Medical Records Department [address] [place] [address] Discharge Summary 12/04/22 1212 MR#: [id number] Acct: [id number] Name: CHASITY PINO Rep #:[id number] : 1950 72 From: Lana Young MD PCP: Dr. Dale Boone MD Status:AD M IN Location: [place] [id number]- Providers Date of Admission: 12/03/22 Date of Discharge: 12/04/22 Primary Care Physician: Dr. Dale Boone MD Reason For Visit: NSTEMI Diagnosis Discharge Diagnosis (1) Nonischemic cardiomyopathy: Status: Acute Code(s): I42.8 - Other cardiomyopathies (2) Essential hypertension: Status: Acute Code(s): I10 - Essential (primary) hypertension (3) Paroxysmal atrial fibrillation: Status: Chronic Code(s): I48.0 - Paroxysmal atrial fibrillation Plan #Nonstemi * Patient admitted with a complaint of chest pain and palpitations. He does have A-fib and had 2D echo on November 20, 2022 which showed his EF had reduced to 25%. It was thought to be due to A-fib and he was due for cardioversion on the of this month. * However his symptoms persisted so he came into the ED. Initial troponin was 133 and trended down to 114. * Cardiology consulted. Patient last took his Eliquis yesterday morning. For cardiac cath tomorrow. * On aspirin and high intensity statin. Started on heparin drip by cardiology. * Will not repeat 2D echo as he had an echo just about 2 weeks ago. * Had a cardiac cath in 2019 which showed clean coronaries. * #Atrial fibrillation: On xarelto which is currently on hold. On carvedilol and digoxin. #CKD stage III: Creatinine is 1.43 with a baseline creatinine of around 1.6. Will monitor. #BPH: on flomax DVT prophylaxis: on heparin drip Code status; full code * Patient counseled extensively about different types of CODE STATUS including full code, DNR CCA and DNR CCA. Patient elects to be full code. * Total [id number] time 17 minutes. Medications at Discharge Home Medications tamsulosin 0.4 mg capsule (Flomax) 0.4 mg PO DAILY urine 07/30/21 omeprazole magnesium 20 mg tablet,delayed release (Prilosec OTC) 20 mg PO DAILY stomach 11/06/22 carvedilol 3.125 mg tablet 3.125 mg PO BID blood pressure #60 tabs 11/27/22 furosemide 40 mg tablet 40 mg PO DAILY diuretic #90 tabs 11/27/22 rivaroxaban 20 mg tablet (Xarelto) 20 mg PO DAILY blood thinner #90 tabs 11/27/22 amiodarone 200 mg tablet 200 mg PO BID #60 tabs 12/04/22 Hospital Course Operations None Procedures Cardiac catheterization Summary of Care Provided Minutes Spent on Discharge: 65 Hospital Course: CHASIYT PINO, is a 72 M with a PMH as outlined who presents via the ED on 12/03/2022 with a complaint of chest pain. Chest pain woke him up at ~ 3am on the day of admission. HE had had an associated exertional shortness of breath. HE denied any dizziness, nausea, vomiting or any other symptoms. Review of systems was otherwise negative. 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 His cardiology team had thought the decrease in EF from 50% from previous echo to 25% this time was due to his afib,and plan was for him to have a cardioversion later this month. However, this chest pain occurred so he came in to the ED. Vitals in the ED were BP of 114/89, TX of 72, RR of 16 and he was saturating at 98% on room air. CNC showed hb of 14.9, wbc of 8.1 and platelet of 198. Chemistry showed sodium of 140, potassium of 4.2 and cr of 1.65. Initial troponin was 133. CXR showed hazy opacification in the lateral right midlung andleft lung base concerning for typical or atypical pneumonia. EKG showed no acuteST changes. He was admitted to be managed for chest pain to rule out ACS. He had cardiac cath on 12/04/2022 which showed normal coronaries with dilated cardiomyopathy. Plan was for medical management and for patient to have his cardioversion in 4 weeks time. Patient had a run of V. tach during this admission. Patient was asymptomatic throughout. His magnesium was checked and was within normal limits(2.4) and potassium was also normal (3.9). This was discussed with cardiology. Cardiology (DR Brown) recommended discontinuing his digoxin and patient to be started on p.o. amiodarone 200 mg twice daily for 2 weeks and then to continue with 200 mg daily. He was to be given a Holter monitor for 48 hours with results to be sent to Dr. Pate. Patient was counseled strongly about taking it easy whilst at home and not doing any strenuous activity in light of his reduced EF. 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 Patient, and daughter expressed understanding and were counseled that the cardiology [employer] will reach out to him toschedule the cardioversion. Patient was seen prior to discharge. He had no complaints and had an uneventful night. Review of systems was otherwise negative. Labs and vitals reviewed. Home meds reviewed and reconciled. Physical Exam Const alert, oriented x3 and no apparent distress General Appearance: cooperative and well developed HEENT normocephalic, head/scalp atraumatic, hearing grossly normal bilaterally, moist oral mucous membranes and oropharynx normal Mouth: oral and palatal mucosa normal Eyes PERRL and EOMs intact bilaterally Neck no lymphadenopathy and supple Lymph Lymphatic: no lymphadenopathy noted and no lymphedema noted Resp normal respiratory effort, normal air movement and clear to auscultation bilaterally Cardio regular rate, regular rhythm, S1 normal heart sound, S2 normal heart sound and no murmurs GI normal to inspection, nondistended, normoactive bowel sounds, soft to palpation,non-tender and non-distended Extremity normal to inspection, full ROM, normal capillary refill, no clubbing, cyanosis or edema and no calf tenderness Skin no rashes or lesions noted General Skin Exam: no breakdown Neuro oriented x3, CN's II-XII intact bilaterally, moves all extremities and no focal motor deficits Sensorium / Orientation: awake and alert Motor Exam: strength 5/5 throughout and general weakness Psych thought process normal and cooperative Appearance: appropriate Weight / BMI Weight Weight: 158 lb 8 oz Body Mass Index (BMI) 24.0 ABG / Lab / Microbiology Data 12/04/22 05:12 12/04/22 05:12 Laboratory: Laboratory Results - last 24 hr 12/03/22 14:52: Sodium 139, Potassium 3.9, Chloride 105, Carbon Dioxide 28.0, Anion Gap 6, BUN 26 H, Creatinine 1.43 H, Estim Creat Clear Calc 45.84, Est GFR (MDRD) Af Amer 63, Est GFR (MDRD) Non-Af 52 L, BUN/Creatinine Ratio 18.2, Glucose 139 H, Calcium 8.7, Magnesium 2.4 12/03/22 17:07: PT 17.4 H, INR 1.4, APTT 31.2 12/03/22 23:45: APTT 61.5 H 12/04/22 05:12: WBC 7.9, RBC 4.46 L, Hgb 14.1, Hct 43.1, MCV 96.6 H, MCH 31.6, MCHC 32.7, RDW Std Deviation 46.5 H, RDW Coeff of Jair 13.1, Plt Count 188, MPV 10.5, Immature Gran % (Auto) 0.400, Neut % (Auto) 58.6, Lymph % (Auto) 21.9, Doddridge % (Auto) 11.1 H, Eos % (Auto) 7.1 H, Baso % (Auto) 0.9, Absolute Neuts (auto) 4.6, Absolute Lymphs (auto) 1.72, Nucleated RBC % 0, Sodium 138, Potassium 3.9, Chloride 105, Carbon Dioxide 29.0, Anion Gap 4 L, BUN 26 H, Creatinine 1.34 H, Estim Creat Clear Calc 48.92, Est GFR (MDRD) Af Amer 68, Est GFR (MDRD) Non-Af 56 L, BUN/Creatinine Ratio 19.4, Glucose 118 H, Calcium 8.6, Magnesium 2.4 12/04/22 06:57: APTT 73.3 H D/C Instructions Discharge Diet: Low fat / Low cholesterol Weight Bearing Status: Weight bearing as tolerated Call your doctor if you observe: Fever of 101 or Higher, Shortness of breath, Dizziness, Swelling in the ankles and Chest pain Meaningful Use Info Meaningful Use Diagnoses (Choose all that apply): None applicable Discharge Plan Admission Admit Date/Time: 12/03/22 07:39 Primary Reason for Your Visit: chest pain Attending Provider: Lana Young Primary Care Provider: Dale Boone Instructions Patient Instructions: ED Heart Disease Risk Factors Additional Instructions / Restrictions: Patient, his and daughter strongly counseled that patient was to abstain from strenuous activity and to take it very easy on account of his nonischemic cardiomyopathy with a EF reduced to 25%. TO have 48 hour Holter monitor applied before discharge Discharge Orders/Prescriptions Prescriptions: New amiodarone 200 mg tablet 200 mg PO BID Qty: 60 2RF Rx Instructions: take 200mg (one tablet) bid for 2 weeks, till December 18, then continue with one tablet (200mg) daily. Continued tamsulosin [Flomax] 0.4 mg capsule 0.4 mg PO DAILY furosemide 40 mg tablet 40 mg PO DAILY Qty: 90 3RF Xarelto 20 mg tablet 20 mg PO DAILY Qty: 90 4RF Rx Instructions: must administer with a meal/food carvedilol 3.125 mg tablet 3.125 mg PO BID Qty: 60 6RF Rx Instructions: must administer with a meal/food omeprazole magnesium [Prilosec OTC] 20 mg tablet,delayed release (DR/EC) 20 mg PO DAILY Discontinued digoxin 125 mcg (0.125 mg) tablet 125 mcg PO DAILY Qty: 90 3RF Referrals / Follow Up: Dale Boone MD [Primary Care Provider] - Within 2 Weeks KevinLouie MD [Med Staff - Active Staff] - Within 2 Weeks Disposition Disposition (needs filled in before D/C Order can be placed): Home, Self Care Charges/Coding Visit Charges Inpatient E&M: 90127 Disch Hosp >30min 12/04/22 1620 <Electronically signed by Lana Young MD> Cosigner Signature (if applicable): CC: Dr. Dale Boone MD; Dr. Lana Young MD~ Signed [facility] Work Phone: [phone]) [phone] Discharge summary Author Lana [facility] December 04, 2022 3:07pm Note Date/Time December 04, 2022 3 :07pm [facility] Medical Records Department [address] [place] [address] Instructions for Home/Discharge Instructions 12/04/22 1507 MR#: [id number] Acct: [id number] Name: CHASITY PINO Rep #:[id number] : 1950 72 From: Lana Young MD PCP: Dr. Dale Boone MD Status:AD M IN Discharge Instructions Diet Discharge Diet: Low fat / Low cholesterol Activity Discharge Activity: - (Patient counseled strongly to abstain from strenuous activity) Weight Bearing Status: Weight bearing as tolerated Dressing / Incision Call your doctor if you observe: Fever of 101 or Higher, Shortness of breath, Dizziness, Swelling in the ankles and Chest pain Follow Up Care Test Results: Test results from this visit will be discussed in further detail at your follow- up appointment, if applicable. Discharge Plan Admission Admit Date/Time: 12/03/22 07:39 Primary Reason for Your Visit: chest pain Attending Provider: Lana Young Primary Care Provider: Dale Boone Instructions Patient Instructions: ED Heart Disease Risk Factors Additional Instructions / Restrictions: Patient, his and daughter strongly counseled that patient was to abstain from strenuous activity and to take it very easy on account of his nonischemic cardiomyopathy with a EF reduced to 25%. TO have 48 hour Holter monitor applied before discharge Discharge Orders/Prescriptions Prescriptions: New amiodarone 200 mg tablet 200 mg PO BID Qty: 60 2RF Rx Instructions: take 200mg (one tablet) bid for 2 weeks, till December 18, then continue with one tablet (200mg) daily. Continued tamsulosin [Flomax] 0.4 mg capsule 0.4 mg PO DAILY furosemide 40 mg tablet 40 mg PO DAILY Qty: 90 3RF Xarelto 20 mg tablet 20 mg PO DAILY Qty: 90 4RF Rx Instructions: must administer with a meal/food carvedilol 3.125 mg tablet 3.125 mg PO BID Qty: 60 6RF Rx Instructions: must administer with a meal/food omeprazole magnesium [Prilosec OTC] 20 mg tablet,delayed release (DR/EC) 20 mg PO DAILY Discontinued digoxin 125 mcg (0.125 mg) tablet 125 mcg PO DAILY Qty: 90 3RF Referrals / Follow Up: Dale Boone MD [Primary Care Provider] - Within 2 Weeks KevinLouie vega MD [Med Staff - Active Staff] - Within 2 Weeks Disposition Disposition (needs filled in before D/C Order can be placed): Home, Self Care 12/04/22 4953<Electronically signed by Lana Young MD>Lana Young MD CC: Dr. Dale Boone MD ~ Signed [facility] Work Phone: [phone] Discharge summary Author Lana Koram [facility] December 04, 2022 12:12pm Note Date/Time December 04, 2022 1 2:12pm [facility] Medical Records Department [address] [place] [address] Instructions for Home/Discharge Instructions 12/04/221211 MR#: [id number] Acct: [id number] Name: CHASITY PINO Rep #:[id number] : 1950 72 From: Lana Young MD PCP: Dr. Dale Boone MD Status:AD M IN Discharge Instructions Diet Discharge Diet: Low fat / Low cholesterol Activity Discharge Activity: Return to Normal Activity Weight Bearing Status: Weight bearing as tolerated Dressing / Incision Call your doctor if you observe: Fever of 101 or Higher, Shortness of breath, Dizziness, Swelling in the ankles and Chest pain Follow Up Care Test Results: Test results from this visit will be discussed in further detail at your follow- up appointment, if applicable. Discharge Plan Admission Admit Date/Time: 12/03/22 07:39 Primary Reason for Your Visit: chest pain Attending Provider: Lana Young Primary Care Provider: Dale Boone Instructions Patient Instructions: ED Heart Disease Risk Factors Discharge Orders/Prescriptions Prescriptions: Continued tamsulosin [Flomax] 0.4 mg capsule 0.4 mg PO DAILY furosemide 40 mg tablet 40 mg PO DAILY Qty: 90 3RF Xarelto 20 mg tablet 20 mg PO DAILY Qty: 90 4RF Rx Instructions: must administer with a meal/food carvedilol 3.125 mg tablet 3.125 mg PO BID Qty: 60 6RF Rx Instructions: must administer with a meal/food digoxin 125 mcg (0.125 mg) tablet 125 mcg PO DAILY Qty: 90 3RF omeprazole magnesium [Prilosec OTC] 20 mg tablet,delayed release (DR/EC) 20 mg PO DAILY Referrals / Follow Up: Dale Boone MD [Primary Care Provider] - Within 2 Weeks KevinLouie vega MD [Med Staff - Active Staff] - Within 2 Weeks Disposition Disposition (needs filled in before D/C Order can be placed): Home, Self Care 12/04/221211<Electronically signed by Lana Young MD>Lana Young MD CC: Dr. Dale Boone MD ~ Signed [facility] Work Phone: [phone] Progress note Author Louie Brown [facility] December 04, 2022 10:15am Note Date/Time December 04, 2022 1 0:02am [facility] Medical Records Department [address] [place] [address] Progress Note - Cardiology 12/04/22 1001 MR#: [id number] Acct: [id number] Name: CHASITY PINO Rep #:[id number] : 1950 72 From: Louie Brown MD PCP: Dr. Dale Boone MD Status:AD M IN Location: [place] [address] Subjective Subjective Patient seen and evaluated. Underwent cardiac catheterization today Objective Data Vital Signs: Vital Signs Temp Pulse Resp BP Pulse Ox O2 Del Method 97 F L 73 16 122/80 H 95 Room Air 12/04/22 06:07 12/04/22 06:09 12/04/22 06:07 12/04/22 06:07 12/04/22 07:16 12/04/22 07:50 Oxygen Delivery Method Room Air Weight: 158 lb 8 oz Body Mass Index (BMI) 24.0 Intake & Output: Intake and Output for Last 24 Hours 12/02/22 12/03/22 12/04/22 23:59 23:59 23:59 Intake Total 870 / 1350 666.20 / 666.20 Balance 870 / 1350 666.20 / 666.20 Lab / Micro Data 12/04/22 05:12 12/04/22 05:12 Labs: Laboratory Results - last 24 hr 12/03/22 14:52: Sodium 139, Potassium 3.9, Chloride 105, Carbon Dioxide 28.0, Anion Gap 6, BUN 26 H, Creatinine 1.43 H, Estim Creat Clear Calc 45.84, Est GFR (MDRD) Af Amer 63, Est GFR (MDRD) Non-Af 52 L, BUN/Creatinine Ratio 18.2, Glucose 139 H, Calcium 8.7, Magnesium 2.4 12/03/22 17:07: PT 17.4 H, INR 1.4, APTT 31.2 12/03/22 23:45: APTT 61.5 H 12/04/22 05:12: WBC 7.9, RBC 4.46 L, Hgb 14.1, Hct 43.1, MCV 96.6 H, MCH 31.6, MCHC 32.7, RDW Std Deviation 46.5 H, RDW Coeff of Jair 13.1, Plt Count 188, MPV 10.5, Immature Gran % (Auto) 0.400, Neut % (Auto) 58.6, Lymph % (Auto) 21.9, Doddridge % (Auto) 11.1 H, Eos % (Auto) 7.1 H, Baso % (Auto) 0.9, Absolute Neuts (auto) 4.6, Absolute Lymphs (auto) 1.72, Nucleated RBC % 0, Sodium 138, Potassium 3.9, Chloride 105, Carbon Dioxide 29.0, Anion Gap 4 L, BUN 26 H, Creatinine 1.34 H, Estim Creat Clear Calc 48.92, Est GFR (MDRD) Af Amer 68, Est GFR (MDRD) Non-Af 56 L, BUN/Creatinine Ratio 19.4, Glucose 118 H, Calcium 8.6, Magnesium 2.4 12/04/22 06:57: APTT 73.3 H Cardiology Labs/Tests 12/03/22 14:52: Sodium 139, Potassium 3.9, Chloride 105, Carbon Dioxide 28.0, Anion Gap 6, BUN 26 H, Creatinine 1.43 H, Est GFR (MDRD) Af Amer 63, Est GFR (MDRD) Non-Af 52 L, BUN/Creatinine Ratio 18.2, Glucose 139 H, Calcium 8.7, Magnesium 2.4 12/03/22 17:07: PT 17.4 H, INR 1.4, APTT 31.2 12/03/22 23:45: APTT 61.5 H 12/04/22 05:12: WBC 7.9, RBC 4.46 L, Hgb 14.1, Hct 43.1, MCV 96.6 H, MCH 31.6, MCHC 32.7, Plt Count 188, MPV 10.5, Immature Gran % (Auto) 0.400, Neut % (Auto) 58.6, Lymph % (Auto) 21.9, Doddridge % (Auto) 11.1 H, Eos % (Auto) 7.1 H, Baso % (Auto) 0.9, Absolute Neuts (auto) 4.6, Nucleated RBC % 0, Sodium 138, Potassium 3.9, Chloride 105, Carbon Dioxide 29.0, Anion Gap 4 L, BUN 26 H, Creatinine 1.34H, Est GFR (MDRD) Af Amer 68, Est GFR (MDRD) Non-Af 56 L, BUN/Creatinine Ratio 19.4, Glucose 118 H, Calcium 8.6, Magnesium 2.4 12/04/22 06:57: APTT 73.3 H Rhythm: EKG: ECHO: Stress Test: Cardiac Cath: PCI: CT Surgery: Holter monitor: EPS: PPM: CXR: Chest CT Scan: Physical Exam Const alert, oriented x3 and no apparent distress General Appearance: cooperative HEENT hearing grossly normal bilaterally Head and Scalp: atraumatic Eyes EOMs intact bilaterally Neck General: normal visual inspection Chest inspection of chest normal and palpation of chest normal Resp normal respiratory effort Auscultation: clear to auscultation bilaterally Cardio regular rate, regular rhythm, S1 normal heart sound and S2 normal heart sound Jugular Venous Distention: JVD GI normal to inspection, nondistended, normoactive bowel sounds Extremity normal capillary refill and no pedal edema Peripheral Pulses: Yes pulses 2+ throughout and femoral pulses present Skin no rashes or lesions noted Neuro oriented x3 and CN's II-XII intact bilaterally Psych Appearance: grossly normal and appropriate Assessment & Plan Assessment/Plan (1) Nonischemic cardiomyopathy: PLAN: Patient has nonischemic cardiomyopathy. Underwent cardiac catheterizationtoday which demonstrated nonobstructive coronary arteries. Reduced ejection fraction of 15 to 20% noted. Would commence guideline directed medical therapy Continue carvedilol Continue digoxin for now We will attempt to add JOHNY inhibitor Recommend low-dose diuretic Lasix 20 mg daily (2) Essential hypertension: PLAN: Continue carvedilol (3) Paroxysmal atrial fibrillation: PLAN: We will recommend resuming Xarelto. We will consider a cardioversion after patient has been on anticoagulation for minimum of 4 weeks. I did discussthis with the family in detail and his risk of cerebrovascular accident if he does not follow the recommendations. This has also been discussed with my nursepractitioner in the office who will schedule a cardioversion after 04 January. All family members expressed understanding. Patient can be discharged later today. 12/04/22 1015 <Electronically signed by Louie Brown MD> Cosigner Signature (if applicable): CC: ~ Signed [facility] Work Phone: 1(449) 138-896610-17-2023 Consult note Author Alfonso Blackwood [facility] December 03, 2022 4:23pm Note Date/Time December 03, 2022 4 :23pm [facility] Medical Records Department [address] [place] [address] Consultation - Cardiology 12/03/22 1615 MR#: [id number] Acct: [id number] Name: CHASITY PINO Rep #:[id number] : 1950 72 From: Alfonso mendez MD PCP: Dr. Dale Boone MD Status:AD M IN Location: [place] [address] Assessment & Plan Assessment/Plan (1) Non-ST elevated myocardial infarction: PLAN: Patient's mild elevation in troponin is likely from his cardiomyopathy. However patient also complains of epigastric discomfort and is very concerned about the presence of severe CAD. Discussed treatment options with the patient in detail. We will proceed with coronary angiography tomorrow. HPI Consult Data Date of Consult: 12/03/22 HPI Narrative HPI Narrative: CHASITY PINO, is a 72 M who presents with epigastric discomfort. Patient has history of atrial fibrillation and new onset LV dysfunction. 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 Patient had coronary angiogram in 2019 which did not reveal any significant stenoses. Review of systems: All systems reviewed. 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 New onset atrial fibrillation Paroxysmal atrial fibrillation Premature ventricular contractions Home Medications tamsulosin 0.4 mg capsule (Flomax) 0.4 mg PO DAILY urine 07/30/21 [History Last Taken 12/02/22] digoxin 125 mcg (0.125 mg) tablet 125 mcg PO DAILY #90 tabs 09/09/22 [Rx Last Taken 12/02/22] omeprazole magnesium 20 mg tablet,delayed release (Prilosec OTC) 20 mg PO DAILY stomach 11/06/22 [History Last Taken 12/02/22] carvedilol 3.125 mg tablet 3.125 mg PO BID #60 tabs 11/27/22 [Rx Last Taken 12/02/22] furosemide 40 mg tablet 40 mg PO DAILY #90 tabs 11/27/22 [Rx Last Taken 12/02/22] rivaroxaban 20 mg tablet (Xarelto) 20 mg PO DAILY #90 tabs 11/27/22 [Rx Last Taken 12/02/22] Allergy/AdvReac Type Severity Reaction Status Date / Time Sulfa (Sulfonamide Allergy sores in Verified 12/03/22 06:11 Antibiotics) mouth sulfamethoxazole Allergy Sores in Verified 12/03/22 06:11 [From Bactrim] mouth Family History Mother Diabetes Father Congestive heart failure Flores's lung Sister Myocardial infarction CAD (coronary artery disease) Diabetes Brother Diabetes Surgical History Finger laceration (02/27/18) History of appendectomy History of arthroscopic knee surgery History of bilateral cataract extraction History of colonoscopy (05/31/14) History of foot fracture History of left heart catheterization (04/21/18) History of left knee replacement (05/09/15) History of tonsillectomy and adenoidectomy Right carpal tunnel syndrome (03/25/18) Social History Smoking Status: Never smoker alcohol intake: current alcohol intake frequency: a few times a week caffeine: Yes Type: coffee Number of servings: 1 and tea Number of servings: 1 Physical Exam Const alert and oriented x3 HEENT normocephalic Eyes no scleral icterus Resp normal respiratory effort Extremity no pedal edema Skin no rashes or lesions noted Psych mental status grossly normal Risk Stratification Risk Stratification Applicable: No Charges/Coding Visit Charges Inpatient E&M: 52335 Init Hosp L2 Objective Data Vital Signs: Vital Signs Temp Pulse Resp BP Pulse Ox O2 Del Method 97.6 F L 75 16 99/61 93 Room Air 12/03/22 14:55 12/03/22 14:55 12/03/22 14:55 12/03/22 14:55 12/03/22 14:55 12/03/22 14:55 Oxygen Delivery Method Room Air Weight: 162 lb 0.636 oz Body Mass Index (BMI) 24.6 Intake & Output: Intake and Output for Last 24 Hours 12/01/22 12/02/22 12/03/22 23:59 23:59 23:59 Intake Total 510 / 510 Balance 510 / 510 Lab / Micro Data 12/03/22 06:11 12/03/22 14:52 Labs: Laboratory Results - last 24 hr 12/03/22 06:11: WBC 8.1, RBC 4.72, Hgb 14.9, Hct 46.8, MCV 99.2 H, MCH 31.6, MCHC 31.8 L, RDW Std Deviation 48.2 H, RDW Coeff of Jair 13.2, Plt Count 198, MPV11.0, Immature Gran % (Auto) 0.200, Neut % (Auto) 58.7, Lymph % (Auto) 22.4, Doddridge % (Auto) 12.4 H, Eos % (Auto) 5.3 H, Baso % (Auto) 1.0, Absolute Neuts (auto) 4.8, Absolute Lymphs (auto) 1.81, Nucleated RBC % 0, Sodium 140, Potassium 4.2, Chloride 105, Carbon Dioxide 32.0, Anion Gap 3 L, BUN 31 H, Creatinine 1.65 H, Estim Creat Clear Calc 39.73, Est GFR (MDRD) Af Amer 53 L, Est GFR (MDRD) Non-Af 44 L, BUN/Creatinine Ratio 18.8, Glucose 110 H, Calcium 8.6, Troponin I High Sens 133 H*, Digoxin 0.97 12/03/22 08:50: Troponin I High Sens 114 H 12/03/22 14:52: Sodium 139, Potassium 3.9, Chloride 105, Carbon Dioxide 28.0, Anion Gap 6, BUN 26 H, Creatinine 1.43 H, Estim Creat Clear Calc 45.84, Est GFR (MDRD) Af Amer 63, Est GFR (MDRD) Non-Af 52 L, BUN/Creatinine Ratio 18.2, Glucose 139 H, Calcium 8.7, Magnesium 2.4 Cardiology Labs/Tests 12/03/22 06:11: WBC 8.1, RBC 4.72, Hgb 14.9, Hct 46.8, MCV 99.2 H, MCH 31.6, MCHC 31.8 L, Plt Count 198, MPV 11.0, Immature Gran % (Auto) 0.200, Neut % (Auto) 58.7, Lymph % (Auto) 22.4, Doddridge % (Auto) 12.4 H, Eos % (Auto) 5.3 H, Baso% (Auto) 1.0, Absolute Neuts (auto) 4.8, Nucleated RBC % 0, Sodium 140, Potassium 4.2, Chloride 105, Carbon Dioxide 32.0, Anion Gap 3 L, BUN 31 H, Creatinine 1.65 H, Est GFR (MDRD) Af Amer 53 L, Est GFR (MDRD) Non-Af 44 L, BUN/Creatinine Ratio 18.8, Glucose 110 H, Calcium 8.6, Digoxin 0.97 12/03/22 14:52: Sodium 139, Potassium 3.9, Chloride 105, Carbon Dioxide 28.0, Anion Gap 6, BUN 26 H, Creatinine 1.43 H, Est GFR (MDRD) Af Amer 63, Est GFR (MDRD) Non-Af 52 L, BUN/Creatinine Ratio 18.2, Glucose 139 H, Calcium 8.7, Magnesium 2.4 Rhythm: EKG: ECHO: Stress Test: Cardiac Cath: PCI: CT Surgery: Holter monitor: EPS: PPM: CXR: Chest CT Scan: Radiography Diagnostic Testing: Radiology Impression Chest X-Ray 12/03/22 06:20 IMPRESSION: Hazy opacification in the lateral right midlung and left lung base concerning for typical or atypical pneumonia in the appropriate setting. If there is absence of clinical pneumonia CT fifth angiogram may be beneficial. Radiographic follow-up recommended after treatment to ensure resolution. Electronically Signed: Felix Marie MD at 6:54 EDT , 12/03/22 1623 <Electronically signed by Alfonso Blackwood MD> Cosigner Signature (if applicable): CC: Dr. Dale Boone MD~ Signed [facility] Work Phone: [phone] 442-343610-17-2023 Discharge summary Author Tavo Wu [facility] December 03, 2022 7:45am Note Date/Time December 03, 2022 6 :24am [facility] Medical Records Department [address] [place] [address] Emergency Department Summary 12/03/22 MR#: [id number] Acct: [id number] Name: CHASITY PINO Rep #:[id number] : 1950 72 From: Tavo Antoniofely KEE PCP: Dr. Dale Boone MD Status:RE G ER Location: ED HPI History of Present Illness Chief Complaint: Chest Pain Detail of Chief Complaint: Chest pain Informant: patient and family Narrative Narrative: Patient presents to the emergency department with complaint of chest pain. Patient states the symptoms started around 3 AM and woke him from sleep. He thought maybe he was having a bad dream. Describes a tightness in his chest andradiated to his neck. [place] nauseated with that and somewhat short of breath. He felt sweaty. Patient states he took a [facility] to the hospital his discomfort resolved. Patient does have history of A-fib and is anticoagulated with Xarelto. He scheduled to have a cardioversion as he has been complaining of exertional dyspnea for the last 2 months. Patient had an echocardiogram on the fourth of this month that showed an EF of 25% with decreased wall motion of the left ventricle. Patient states his last heart cath was in 2019. He is never had stents. Never had open heart surgery. 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 New onset atrial fibrillation Paroxysmal atrial fibrillation Premature ventricular contractions Home Medications tamsulosin 0.4 mg capsule (Flomax) 0.4 mg PO DAILY 07/30/21 [History Last Taken Unknown] digoxin 125 mcg (0.125 mg) tablet 125 mcg PO DAILY #90 tabs 09/09/22 [Rx Last Taken Unknown] omeprazole magnesium 20 mg tablet,delayed release (Prilosec OTC) 20 mg PO DAILY 11/06/22 [History Last Taken Unknown] carvedilol 3.125 mg tablet 3.125 mg PO BID #60 tabs 11/27/22 [Rx Last Taken Unknown] furosemide 40 mg tablet 40 mg PO DAILY #90 tabs 11/27/22 [Rx Last Taken Unknown] rivaroxaban 20 mg tablet (Xarelto) 20 mg PO DAILY #90 tabs 11/27/22 [Rx Last Taken Unknown] Allergy/AdvReac Type Severity Reaction Status Date / Time Sulfa (Sulfonamide Allergy sores in Verified 12/03/22 06:11 Antibiotics) mouth sulfamethoxazole Allergy Sores in Verified 12/03/22 06:11 [From Bactrim] mouth Family History Mother Diabetes Father Congestive heart failure Flores's lung Sister Myocardial infarction CAD (coronary artery disease) Diabetes Brother Diabetes Surgical History Finger laceration (02/27/18) History of appendectomy History of arthroscopic knee surgery History of bilateral cataract extraction History of colonoscopy (05/31/14) History of foot fracture History of left heart catheterization (04/21/18) History of left knee replacement (05/09/15) History of tonsillectomy and adenoidectomy Right carpal tunnel syndrome (03/25/18) Social History Smoking Status: Never smoker alcohol intake: current alcohol intake frequency: a few times a week caffeine: Yes Type: coffee Number of servings: 1 and tea Number of servings: 1 ROS ROS ED Constitutional Constitutional ED: Reports systems reviewed and no addt'l complaints, except as documented; Denies body ache(s), change in weight or chills Eyes Eyes: Denies acute decrease in peripheral vision, change in vision, double vision or loss of vision ENT ENT ED: Reports none; Denies ear pain, lip swelling, loss taste/smell, neck pain, otalgia or sore throat Cardiovascular Cardiovascular: Reports none and chest pain; Denies abdominal pain, chest pain with activity, leg edema, lightheadedness, palpitations, rapid heart rate or syncope Respiratory/Chest Respiratory/Chest: Reports none and shortness of breath with exertion; Denies change in mental status, dry cough, dyspnea, hemoptysis or shortness of breath at rest Gastrointestinal Gastrointestinal: Reports none; Denies abdominal pain, change in stool character, diarrhea, hematemesis, hematochezia, melena, rectal bleeding or vomiting Genitourinary Genitourinary ED: Reports none; Denies abdominal discomfort, anuria, dysuria, genital pain or polyuria Musculoskeletal Musculoskeletal: Reports none; Denies arthralgias, back pain, difficulty walking, extremity pain, muscle weakness or myalgias Integumentary Reports none; Denies abscess or rash Neurologic Neurologic: Reports none; Denies abnormal gait, confusion, focal weakness, frequent falls, headache(s), loss of vision, numbness, paresthesias, radicular pain, vertigo or weakness Psychiatric Psychiatric: Reports systems reviewed and no addt'l complaints, except as documented and none; Denies behavioral changes, confusion, difficulty concentrating, hallucinations, suicidal ideation, tactile hallucinations or visual hallucinations Endocrine Endocrinology: Denies none, cold intolerance, excessive sweating, fatigue or heat intolerance Hematologic/Lymphatic Hematologic/Lymphatic: Reports none; Denies anemia, easy bleeding or easy bruising Allergic/Immunologic Allergic/Immunologic ED: Denies as per HPI, none, lip swelling, mouth swelling, throat swelling, tongue swelling or hives EXAM Physical Exam Const Vital Signs: 12/03/22 06:09 12/03/22 06:12 12/03/22 06:12 Temperature 97.6 F L Temperature Source Oral Pulse Rate 75 74 Respiratory Rate 17 23 H Respiratory Effort Normal Blood Pressure 117/80 Blood Pressure Mean 92 Pulse Ox 97 97 Oxygen Delivery Method Room Air Room Air 12/03/22 06:20 12/03/22 07:08 12/03/22 07:33 Temperature Temperature Source Pulse Rate 72 63 Respiratory Rate 16 17 Respiratory Effort Blood Pressure 114/89 H 114/89 H Blood Pressure Mean 97 97 Pulse Ox 98 98 97 Oxygen Delivery Method Room Air Room Air Positive well nourished and well developed General Appearance ED: well developed and NAD HEENT Reports TM's clear and moist mucous membranes normocephalic and atraumatic; Negative for trauma or tenderness Tympanic Membrane ED: Yes TM's clear Eyes PERRL and EOMs intact bilaterally General Eye ED: Negative for pale conjunctiva or scleral icterus Neck no lymphadenopathy, supple and no JVD General: Negative for tenderness Chest Wall inspection of chest normal and palpation of chest normal Chest: Negative for tenderness Resp normal respiratory effort and clear to auscultation bilaterally Effort and Inspection: Negative for respiratory distress or pain with movement Auscultation: Negative for rhonchi, wheezes or diminished lung sounds Cardio regular rate, S1 normal heart sound, S2 normal heart sound and no murmurs; Negative for regular rhythm Rhythm: abnormal rhythm irregularly irregular Peripheral Pulses: pulses 2+ throughout GI normal to inspection, nondistended, normoactive bowel sounds, soft to palpation,non-tender, non-distended and no masses Back/Spine no CVA tenderness and no thoracic nor lumbar tenderness Extremity normal to inspection General Extremety ED: Negative for edema General Extremity: Negative for edema Neuro oriented x3, CN's II-XII intact bilaterally, no sensory deficits noted and gait normal Sensorium / Orientation: awake, alert, oriented to person, oriented to place andoriented to time Motor Exam: strength 5/5 throughout and strength abnormal Psych mental status grossly normal Skin no rashes or lesions noted and no wounds Heart Score History: Highly Suspicious ECG: Nonspecific Repolarization Age: >/= 65 years Risk Factors: 1 or 2 Risk Factors Troponin: >1 - <3 Normal Limit Score: 7 MDM MDM MDM Narrative Medical decision making narrative: Patient presents with chest pain and history of exertional dyspnea over the last2 months. Chest pain currently resolved. In the differential would be acute coronary syndrome versus PE which I feel is less likely given that he is on Xarelto. IV line established. Patient placed on shelter monitor. EKG obtainedshowed atrial fibrillation with a ventricular rate of 72 bpm with old septal infarct. CBC with differential was unremarkable. Chemistries unremarkable. Troponin was elevated at 133. Creatinine elevated 1.65. Patient did receive aspirin on arrival in the emergency department. 1 view chest x-ray showed no evidence of infiltrate or pneumothorax or acute disease process. Case will be discussed with hospitalist and improvement engineer on-call. Patient will be admitted for non-ST elevation TX. It is noted that patient had recent echocardiogram on the fourth of the month that showed an ejection fraction of 25% with global leftventricular wall motion abnormality and hypokinesis. This is in contrast to prior echo in August 2021 that showed an ejection fraction of 55% with no abnormalities otherwise. Patient has been experiencing exertional dyspnea for the last 2 months. After discussing results with patient and family members he tells me now that he is having more chest discomfort. Repeat EKG obtained showed atrial fibrillation with a rate of 68 bpm with old septal infarct no change from first EKG. Patient will be given nitroglycerin and will have Nitropaste placed to the anterior chest wall. Hospitalist made aware. Lab Data Attestation: I reviewed the patient's lab results. Labs: Laboratory Results - last 24 hr 12/03/22 06:11 WBC 8.1 RBC 4.72 Hgb 14.9 Hct 46.8 MCV 99.2 H MCH 31.6 MCHC 31.8 L RDW Std Deviation 48.2 H RDW Coeff of Jair 13.2 Plt Count 198 MPV 11.0 Immature Gran % (Auto) 0.200 Neut % (Auto) 58.7 Lymph % (Auto) 22.4 Doddridge % (Auto) 12.4 H Eos % (Auto) 5.3 H Baso % (Auto) 1.0 Absolute Neuts (auto) 4.8 Absolute Lymphs (auto) 1.81 Nucleated RBC % 0 Sodium 140 Potassium 4.2 Chloride 105 Carbon Dioxide 32.0 Anion Gap 3 L BUN 31 H Creatinine 1.65 H Estim Creat Clear Calc 39.73 Est GFR (MDRD) Af Amer 53 L Est GFR (MDRD) Non-Af 44 L BUN/Creatinine Ratio 18.8 Glucose 110 H Calcium 8.6 Troponin I High Sens 133 H* Digoxin 0.97 Radiography Diagnostic Testing: Clinical Impression(s) from Imaging Studies Chest X-Ray 12/03/22 06:20 IMPRESSION: Hazy opacification in the lateral right midlung and left lung base concerning for typical or atypical pneumonia in the appropriate setting. If there is absence of clinical pneumonia CT fifth angiogram may be beneficial. Radiographic follow-up recommended after treatment to ensure resolution. Electronically Signed: Felix Marie MD at 6:54 EDT , 1 view chest x-ray obtained interpreted by myself as no evidence of infiltrate or pneumothorax or acute disease process. The product safety administrator thought there may be hazy opacification in the left lower lobe which could be consistent with a pneumonia in the correct clinical setting otherwise recommended possibly gettinga CTA of the chest to evaluate further. Patient clinically does not have pneumonia. EKG Initial EKG: Attestation: I personally reviewed and interpreted this EKG as follows: Comments: Atrial fibrillation with rate of 72 bpm with old septal infarct Prior EKG tracings: available for review Prior: Unchanged Discharge Plan Dx/Rx/DC Orders Clinical Impression: Acute renal insufficiency, Non-ST elevated myocardial infarction, Chest pain Disposition Disposition: Acute Care Hospital [facility] What to do if you have Problems For any increased pain, shortness of breath, bleeding, nausea or vomiting, chestpain, or any unexpected problems, contact your Primary Care Provider. Call [facility] ([phone]) or report to the closest Emergency Room. Call 911 if necessary. 12/03/22 0745 <Electronically signed by Tavo Wu DO> Cosigner Signature (if applicable): CC: Dr. Dale Boone MD ~ Signed [facility] Work Phone: [phone]) 245-746410-17-2023 History and physical note Author [facility] December 04, 2022 6:26pm Note Date/Time December 03, 2022 7 :24am [facility] Medical Records Department [address] [place] [address] History & Physical Exam 12/03/22 0720 MR#: [id number] Acct: [id number] Name: CHASITY PINO Rep #:[id number] : 1950 72 From: Lana Young MD PCP: Dr. Dale Boone MD Status:AD M IN Location: [facility] [id number] HPI - General General Date of Admission: 12/03/22 Date of Service: 12/03/22 Chief Complaint: chest pain HPI Narrative CHASITY PINO, is a 72 M with a PMH as outlined who presents via the ED on 12/03/2022 with a complaint of chest pain. Chest pain woke him up at ~ 3am on the day of admission. HE had had an associated exertional shortness of breath. HE denied any dizziness, nausea, vomiting or any other symptoms. Review of systems was otherwise negative. 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 His cardiology team had thought the decrease in EF from 50% from previous echo to 25% this time was due to his afib,and plan was for him to have a cardioversion later this month. However, this chest pain occurred so he came in to the ED. Vitals in the ED were BP of 114/89, TX of 72, RR of 16 and he was saturating at 98% on room air. CNC showed hb of 14.9, wbc of 8.1 and platelet of 198. Chemistry showed sodium of 140, potassium of 4.2 and cr of 1.65. Initial troponin was 133. CXR showed hazy opacification in the lateral right midlung andleft lung base concerning for typical or atypical pneumonia. EKG showed no acuteST changes. He is being admitted to be managed for nonstemi. 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 New onset atrial fibrillation Paroxysmal atrial fibrillation Premature ventricular contractions Home Medications tamsulosin 0.4 mg capsule (Flomax) 0.4 mg PO DAILY urine 07/30/21 [History Last Taken 12/02/22] digoxin 125 mcg (0.125 mg) tablet 125 mcg PO DAILY #90 tabs 09/09/22 [Rx Last Taken 12/02/22] omeprazole magnesium 20 mg tablet,delayed release (Prilosec OTC) 20 mg PO DAILY stomach 11/06/22 [History Last Taken 12/02/22] carvedilol 3.125 mg tablet 3.125 mg PO BID #60 tabs 11/27/22 [Rx Last Taken 12/02/22] furosemide 40 mg tablet 40 mg PO DAILY #90 tabs 11/27/22 [Rx Last Taken 12/02/22] rivaroxaban 20 mg tablet (Xarelto) 20 mg PO DAILY #90 tabs 11/27/22 [Rx Last Taken 12/02/22] Allergy/AdvReac Type Severity Reaction Status Date / Time Sulfa (Sulfonamide Allergy sores in Verified 12/03/22 06:11 Antibiotics) mouth sulfamethoxazole Allergy Sores in Verified 12/03/22 06:11 [From Bactrim] mouth Family History Mother Diabetes Father Congestive heart failure Flores's lung Sister Myocardial infarction CAD (coronary artery disease) Diabetes Brother Diabetes Surgical History Finger laceration (02/27/18) History of appendectomy History of arthroscopic knee surgery History of bilateral cataract extraction History of colonoscopy (05/31/14) History of foot fracture History of left heart catheterization (04/21/18) History of left knee replacement (05/09/15) History of tonsillectomy and adenoidectomy Right carpal tunnel syndrome (03/25/18) Social History Smoking Status: Never smoker alcohol intake: current alcohol intake frequency: a few times a week caffeine: Yes Type: coffee Number of servings: 1 and tea Number of servings: 1 ROS Constitutional Constitutional: Denies anorexia, chills, fatigue, fever(s), malaise or weakness ENT HEENT: Denies dysphagia, epistaxis, headache(s), hearing loss or throat swelling Cardiovascular Cardiovascular: Reports chest pain and palpitations; Denies orthopnea or paroxysmal nocturnal dyspnea Respiratory/Chest Respiratory/Chest: Denies cough, shortness of breath at rest or shortness of breath with exertion Gastrointestinal Gastrointestinal: Denies abdominal pain, diarrhea, dyspepsia, nausea or vomiting Musculoskeletal Musculoskeletal: Denies back pain, joint stiffness or joint swelling Integumentary Integumentary: Denies dry skin Neurologic Neurologic: Denies confusion, dizziness, focal weakness, headache(s), numbness or seizures Psychiatric Psychiatric: Denies anxiety Endocrine Endocrinology: Denies change in body appearance Vital Signs Vital Signs Vital Signs: 12/03/22 06:09 12/03/22 06:12 12/03/22 06:12 Temperature 97.6 F L Temperature Source Oral Pulse Rate 75 74 Respiratory Rate 17 23 H Respiratory Effort Normal Blood Pressure 117/80 Blood Pressure Mean 92 Pulse Ox 97 97 Oxygen Delivery Method Room Air Room Air 12/03/22 06:20 12/03/22 07:08 Temperature Temperature Source Pulse Rate 72 Respiratory Rate 16 Respiratory Effort Blood Pressure 114/89 H Blood Pressure Mean 97 Pulse Ox 98 98 Oxygen Delivery Method Room Air Room Air Weight Weight: 163 lb 2.273 oz Body Mass Index (BMI) 24.7 Physical Exam Const alert, oriented x3 and no apparent distress General Appearance: cooperative and well developed HEENT normocephalic, head/scalp atraumatic, moist oral mucous membranes and oropharynxnormal Eyes PERRL and EOMs intact bilaterally Neck no lymphadenopathy and supple Lymph Lymphatic: no lymphadenopathy noted and no lymphedema noted Resp normal respiratory effort, normal air movement and clear to auscultation bilaterally Cardio regular rate, S1 normal heart sound, S2 normal heart sound and no murmurs GI normal to inspection, nondistended, normoactive bowel sounds, soft to palpation,non-tender and non-distended Extremity normal capillary refill, no clubbing, cyanosis or edema and no calf tenderness Skin General Skin Exam: no breakdown Neuro CN's II-XII intact bilaterally and no focal motor deficits Motor Exam: strength 5/5 throughout and general weakness Psych thought process normal and cooperative Appearance: appropriate Results Lab / Micro Data 12/03/22 06:11 12/03/22 14:52 Labs: Laboratory Results - last 24 hr 12/03/22 06:11: WBC 8.1, RBC 4.72, Hgb 14.9, Hct 46.8, MCV 99.2 H, MCH 31.6, MCHC 31.8 L, RDW Std Deviation 48.2 H, RDW Coeff of Jair 13.2, Plt Count 198, MPV11.0, Immature Gran % (Auto) 0.200, Neut % (Auto) 58.7, Lymph % (Auto) 22.4, Doddridge % (Auto) 12.4 H, Eos % (Auto) 5.3 H, Baso % (Auto) 1.0, Absolute Neuts (auto) 4.8, Absolute Lymphs (auto) 1.81, Nucleated RBC % 0, Sodium 140, Potassium 4.2, Chloride 105, Carbon Dioxide 32.0, Anion Gap 3 L, BUN 31 H, Creatinine 1.65 H, Estim Creat Clear Calc 39.73, Est GFR (MDRD) Af Amer 53 L, Est GFR (MDRD) Non-Af 44 L, BUN/Creatinine Ratio 18.8, Glucose 110 H, Calcium 8.6, Troponin I High Sens 133 H* Radiology Impression Chest X-Ray 12/03/22 06:20 IMPRESSION: Hazy opacification in the lateral right midlung and left lung base concerning for typical or atypical pneumonia in the appropriate setting. If there is absence of clinical pneumonia CT fifth angiogram may be beneficial. Radiographic follow-up recommended after treatment to ensure resolution. Electronically Signed: Felix Marie MD at 6:54 EDT , Assessment & Plan Assessment/Plan (1) Chest pain: PLAN: Plan #Nonstemi * Patient admitted with a complaint of chest pain and palpitations. He does have A-fib and had 2D echo on November 20, 2022 which showed his EF had reduced to 25%. It was thought to be due to A-fib and he was due for cardioversion on the of this month. * However his symptoms persisted so he came into the ED. Initial troponin was 133 and trended down to 114. * Cardiology consulted. Patient last took his Eliquis yesterday morning. For cardiac cath tomorrow. * On aspirin and high intensity statin. Started on heparin drip by cardiology. * Will not repeat 2D echo as he had an echo just about 2 weeks ago. * Had a cardiac cath in 2019 which showed clean coronaries. * #Atrial fibrillation: On xarelto which is currently on hold. On carvedilol and digoxin. #CKD stage III: Creatinine is 1.43 with a baseline creatinine of around 1.6. Will monitor. #BPH: on flomax DVT prophylaxis: on heparin drip Code status; full code * Patient counseled extensively about different types of CODE STATUS including full code, DNR CCA and DNR CCA. Patient elects to be full code. * Total uqsx-li-uxzb time 17 minutes. Charges/Coding Visit Charges Inpatient E&M: 23906 Init Hosp L3 Procedures Hospitalists Procedures: 00457 Advncd Care Plan 30 Min 12/04/22 1826 <Electronically signed by Lana Young MD> Cosigner Signature (if applicable): CC: Dr. Dale Boone MD; Dr. Lana Young MD~ Signed [facility] Work Phone: [phone] 339-346910-17-2023 Discharge summary Author Tavo Bryce [facility] December 03, 2022 7:45am Note Date/Time December 03, 2022 6 :24am [facility] Medical Records Department [address] [place] [address] Emergency Department Summary 12/03/22 MR#: [id number] Acct: [id number] Name: CHASITY PINO Rep #:[id number] : 1950 72 From: Tavo Wu DO PCP: Dr. Dale Boone MD Status:RE G ER Location: ED HPI History of Present Illness Chief Complaint: Chest Pain Detail of Chief Complaint: Chest pain Informant: patient and family Narrative Narrative: Patient presents to the emergency department with complaint of chest pain. Patient states the symptoms started around 3 AM and woke him from sleep. He thought maybe he was having a bad dream. Describes a tightness in his chest andradiated to his neck. [place] nauseated with that and somewhat short of breath. He felt sweaty. Patient states he took a while before he came downstairs to letfamily know. On the way to the hospital his discomfort resolved. Patient does have history of A-fib and is anticoagulated with Xarelto. He scheduled to have a cardioversion as he has been complaining of exertional dyspnea for the last 2 months. Patient had an echocardiogram on the fourth of this month that showed an EF of 25% with decreased wall motion of the left ventricle. Patient states his last heart cath was in 2019. He is never had stents. Never had open heart surgery. 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 New onset atrial fibrillation Paroxysmal atrial fibrillation Premature ventricular contractions Home Medications tamsulosin 0.4 mg capsule (Flomax) 0.4 mg PO DAILY 07/30/21 [History Last Taken Unknown] digoxin 125 mcg (0.125 mg) tablet 125 mcg PO DAILY #90 tabs 09/09/22 [Rx Last Taken Unknown] omeprazole magnesium 20 mg tablet,delayed release (Prilosec OTC) 20 mg PO DAILY 11/06/22 [History Last Taken Unknown] carvedilol 3.125 mg tablet 3.125 mg PO BID #60 tabs 11/27/22 [Rx Last Taken Unknown] furosemide 40 mg tablet 40 mg PO DAILY #90 tabs 11/27/22 [Rx Last Taken Unknown] rivaroxaban 20 mg tablet (Xarelto) 20 mg PO DAILY #90 tabs 11/27/22 [Rx Last Taken Unknown] Allergy/AdvReac Type Severity Reaction Status Date / Time Sulfa (Sulfonamide Allergy sores in Verified 12/03/22 06:11 Antibiotics) mouth sulfamethoxazole Allergy Sores in Verified 12/03/22 06:11 [From Bactrim] mouth Family History Mother Diabetes Father Congestive heart failure Flores's lung Sister Myocardial infarction CAD (coronary artery disease) Diabetes Brother Diabetes Surgical History Finger laceration (02/27/18) History of appendectomy History of arthroscopic knee surgery History of bilateral cataract extraction History of colonoscopy (05/31/14) History of foot fracture History of left heart catheterization (04/21/18) History of left knee replacement (05/09/15) History of tonsillectomy and adenoidectomy Right carpal tunnel syndrome (03/25/18) Social History Smoking Status: Never smoker alcohol intake: current alcohol intake frequency: a few times a week caffeine: Yes Type: coffee Number of servings: 1 and tea Number of servings: 1 ROS ROS ED Constitutional Constitutional ED: Reports systems reviewed and no addt'l complaints, except as documented; Denies body ache(s), change in weight or chills Eyes Eyes: Denies acute decrease in peripheral vision, change in vision, double vision or loss of vision ENT ENT ED: Reports none; Denies ear pain, lip swelling, loss taste/smell, neck pain, otalgia or sore throat Cardiovascular Cardiovascular: Reports none and chest pain; Denies abdominal pain, chest pain with activity, leg edema, lightheadedness, palpitations, rapid heart rate or syncope Respiratory/Chest Respiratory/Chest: Reports none and shortness of breath with exertion; Denies change in mental status, dry cough, dyspnea, hemoptysis or shortness of breath at rest Gastrointestinal Gastrointestinal: Reports none; Denies abdominal pain, change in stool character, diarrhea, hematemesis, hematochezia, melena, rectal bleeding or vomiting Genitourinary Genitourinary ED: Reports none; Denies abdominal discomfort, anuria, dysuria, genital pain or polyuria Musculoskeletal Musculoskeletal: Reports none; Denies arthralgias, back pain, difficulty walking, extremity pain, muscle weakness or myalgias Integumentary Reports none; Denies abscess or rash Neurologic Neurologic: Reports none; Denies abnormal gait, confusion, focal weakness, frequent falls, headache(s), loss of vision, numbness, paresthesias, radicular pain, vertigo or weakness Psychiatric Psychiatric: Reports systems reviewed and no addt'l complaints, except as documented and none; Denies behavioral changes, confusion, difficulty concentrating, hallucinations, suicidal ideation, tactile hallucinations or visual hallucinations Endocrine Endocrinology: Denies none, cold intolerance, excessive sweating, fatigue or heat intolerance Hematologic/Lymphatic Hematologic/Lymphatic: Reports none; Denies anemia, easy bleeding or easy bruising Allergic/Immunologic Allergic/Immunologic ED: Denies as per HPI, none, lip swelling, mouth swelling, throat swelling, tongue swelling or hives EXAM Physical Exam Const Vital Signs: 12/03/22 06:09 12/03/22 06:12 12/03/22 06:12 Temperature 97.6 F L Temperature Source Oral Pulse Rate 75 74 Respiratory Rate 17 23 H Respiratory Effort Normal Blood Pressure 117/80 Blood Pressure Mean 92 Pulse Ox 97 97 Oxygen Delivery Method Room Air Room Air 12/03/22 06:20 12/03/22 07:08 12/03/22 07:33 Temperature Temperature Source Pulse Rate 72 63 Respiratory Rate 16 17 Respiratory Effort Blood Pressure 114/89 H 114/89 H Blood Pressure Mean 97 97 Pulse Ox 98 98 97 Oxygen Delivery Method Room Air Room Air Positive well nourished and well developed General Appearance ED: well developed and NAD HEENT Reports TM's clear and moist mucous membranes normocephalic and atraumatic; Negative for trauma or tenderness Tympanic Membrane ED: Yes TM's clear Eyes PERRL and EOMs intact bilaterally General Eye ED: Negative for pale conjunctiva or scleral icterus Neck no lymphadenopathy, supple and no JVD General: Negative for tenderness Chest Wall inspection of chest normal and palpation of chest normal Chest: Negative for tenderness Resp normal respiratory effort and clear to auscultation bilaterally Effort and Inspection: Negative for respiratory distress or pain with movement Auscultation: Negative for rhonchi, wheezes or diminished lung sounds Cardio regular rate, S1 normal heart sound, S2 normal heart sound and no murmurs; Negative for regular rhythm Rhythm: abnormal rhythm irregularly irregular Peripheral Pulses: pulses 2+ throughout GI normal to inspection, nondistended, normoactive bowel sounds, soft to palpation,non-tender, non-distended and no masses Back/Spine no CVA tenderness and no thoracic nor lumbar tenderness Extremity normal to inspection General Extremety ED: Negative for edema General Extremity: Negative for edema Neuro oriented x3, CN's II-XII intact bilaterally, no sensory deficits noted and gait normal Sensorium / Orientation: awake, alert, oriented to person, oriented to place andoriented to time Motor Exam: strength 5/5 throughout and strength abnormal Psych mental status grossly normal Skin no rashes or lesions noted and no wounds Heart Score History: Highly Suspicious ECG: Nonspecific Repolarization Age: >/= 65 years Risk Factors: 1 or 2 Risk Factors Troponin: >1 - <3 Normal Limit Score: 7 MDM MDM MDM Narrative Medical decision making narrative: Patient presents with chest pain and history of exertional dyspnea over the last2 months. Chest pain currently resolved. In the differential would be acute coronary syndrome versus PE which I feel is less likely given that he is on Xarelto. IV line established. Patient placed on shelter monitor. EKG obtainedshowed atrial fibrillation with a ventricular rate of 72 bpm with old septal infarct. CBC with differential was unremarkable. Chemistries unremarkable. Troponin was elevated at 133. Creatinine elevated 1.65. Patient did receive aspirin on arrival in the emergency department. 1 view chest x-ray showed no evidence of infiltrate or pneumothorax or acute disease process. Case will be discussed with hospitalist and improvement engineer on-call. Patient will be admitted for non-ST elevation TX. It is noted that patient had recent echocardiogram on the fourth of the month that showed an ejection fraction of 25% with global leftventricular wall motion abnormality and hypokinesis. This is in contrast to prior echo in August 2021 that showed an ejection fraction of 55% with no abnormalities otherwise. Patient has been experiencing exertional dyspnea for the last 2 months. After discussing results with patient and family members he tells me now that he is having more chest discomfort. Repeat EKG obtained showed atrial fibrillation with a rate of 68 bpm with old septal infarct no change from first EKG. Patient will be given nitroglycerin and will have Nitropaste placed to the anterior chest wall. Hospitalist made aware. Lab Data Attestation: I reviewed the patient's lab results. Labs: Laboratory Results - last 24 hr 12/03/22 06:11 WBC 8.1 RBC 4.72 Hgb 14.9 Hct 46.8 MCV 99.2 H MCH 31.6 MCHC 31.8 L RDW Std Deviation 48.2 H RDW Coeff of Jair 13.2 Plt Count 198 MPV 11.0 Immature Gran % (Auto) 0.200 Neut % (Auto) 58.7 Lymph % (Auto) 22.4 [place] % (Auto) 12.4 H Eos % (Auto) 5.3 H Baso % (Auto) 1.0 Absolute Neuts (auto) 4.8 Absolute Lymphs (auto) 1.81 Nucleated RBC % 0 Sodium 140 Potassium 4.2 Chloride 105 Carbon Dioxide 32.0 Anion Gap 3 L BUN 31 H Creatinine 1.65 H Estim Creat Clear Calc 39.73 Est GFR (MDRD) Af Amer 53 L Est GFR (MDRD) Non-Af 44 L BUN/Creatinine Ratio 18.8 Glucose 110 H Calcium 8.6 Troponin I High Sens 133 H* Digoxin 0.97 Radiography Diagnostic Testing: Clinical Impression(s) from Imaging Studies Chest X-Ray 12/03/22 06:20 IMPRESSION: Hazy opacification in the lateral right midlung and left lung base concerning for typical or atypical pneumonia in the appropriate setting. If there is absence of clinical pneumonia CT fifth angiogram may be beneficial. Radiographic follow-up recommended after treatment to ensure resolution. Electronically Signed: Felix Marie MD at 6:54 EDT , 1 view chest x-ray obtained interpreted by myself as no evidence of infiltrate or pneumothorax or acute disease process. The product safety administrator thought there may be hazy opacification in the left lower lobe which could be consistent with a pneumonia in the correct clinical setting otherwise recommended possibly gettinga CTA of the chest to evaluate further. Patient clinically does not have pneumonia. EKG Initial EKG: Attestation: I personally reviewed and interpreted this EKG as follows: Comments: Atrial fibrillation with rate of 72 bpm with old septal infarct Prior EKG tracings: available for review Prior: Unchanged Discharge Plan Dx/Rx/DC Orders Clinical Impression: Acute renal insufficiency, Non-ST elevated myocardial infarction, Chest pain Disposition Disposition: [facility] What to do if you have Problems For any increased pain, shortness of breath, bleeding, nausea or vomiting, chestpain, or any unexpected problems, contact your Primary Care Provider. Call [facility] ([phone]) or report to the closest Emergency Room. Call 911 if necessary. 12/03/22 0745 <Electronically signed by Tavo Wu DO> Cosigner Signature (if applicable): CC: Dr. Dale Boone MD ~ Signed [facility] Work Phone: 1(527) 551-548009-15-2023 History of Present illness Narrative* Eben Vo MD - 11/01/2022 8:00 AM EDT Subjective Patient ID: Chasity Pino is a [...] 120/72 Pulse 58 Ht 1.727 m (5' 8) Wt 73.9 kg (162 lb 14.4 oz) [...] gi if not 100% documented in this [facility] Work Phone: [phone]) 767-621309-14-2023 History of Present illness Narrative* Reji Rose DPM - 10/31/2022 12:44 PM EDT Patient: Chasity Pino Date of : 1950 (72 y.o.) PCP: Eben Vo MD Procedures ASSESSMENT/PLAN: Chasity Pino 72 y.o. male with history of status post excision of a poro - keratoma versus verrucaplantaris of the fifth metatarsal base left foot [...] metatarsal base the left foot. Patient does havean underlying bone spur that is reoccurring on [...] Sitting, BP Cuff Size: Adult) Pulse 77 Temp98.3 F (36.8 C) (Infrared) Laboratory and Additional Data Reviewed: Reviewed:[id number]} XR Calcaneus Left 2+ Views (Standard) X-rays 2 views left heel: There is a slight varus tilt of the calcaneus. Patient has a decreased medial longitudinal arch documented in this [id number] History of Present illness Narrative* Reji Rose DPM - 10/17/2022 1:21 PM EDT Patient: Chasity Pino Date of : 1950 [...] dressing were applied. Patient instructed to remove dressingtomorrow, apply Neosporin and a Band-Aid daily until [...] mm painful papillomatous lesion with surrounding hyperkeratotic tissueon the lateral plantar aspect of the fifth metatarsal base left foot. Neuro-intact left foot Musculoskeletal-bony prominence of the fifth metatarsal base left foot Vascular-DP PT pulses are palpable left foot BP 116/77 (BP Location: Right arm, Patient Position: Sitting, BP Cuff Size: Adult) Pulse 77 Temp 97.5 F (36.4 C) (Infrared) Laboratory and Additional Data Reviewed: Reviewed:[id number]} XR Calcaneus Left 2+ Views (Standard) X-rays 2 views left heel: There is a slight varus tilt of the calcaneus. Patient has a decreased medial longitudinal arch documented in this [id number] History of Present illness Narrative* Lavelle Boone MD - 10/15/2022 11:20 AM EDT Subjective Patient ID: Chasity Pino is a 72 y.o. male who presents for GERD. HPI Follows with Cardiology in [place] Aching in epigastric area, Some LEMUS and [...] 108/64 Pulse 82 Ht 1.727 m (5' 8) Wt 73.3 kg (161 lb 9.6 oz) [...] 40 mg EC tablet documented in this [facility] Work Phone: [phone]) 168-998206-15-2023 History of Present illness Narrative* Reji RoseGABBI - 08/01/2022 12:16 PM EDT Patient: Chasity Pino Date of : 1950 (72 y.o.) PCP: Eben Vo MD Procedures I debrided toenails 2 through 5 on the right foot and 1 through 5 on the left foot with nail nippers ASSESSMENT/PLAN: Chasity Pino 72 y.o. male with history of callus on the lateral side of the fifth metatarsal leftfoot with recurrent exostosis. Rear foot varus. Onychomycosis [...] trimmed today. Patient was inquiring about further optionssince conventional cream, orthotics and shaving the callus [...] C) (Infrared) Laboratory and Additional Data Reviewed: Reviewed:[id number]} XR Calcaneus Left 2+ Views (Standard) X-rays 2 views left heel: There is a slight varus tilt of the calcaneus. Patient has a decreased medial longitudinal arch documented in this [id number] History of Present illness Narrative* Reji Rose DPM - 05/09/2022 12:13 PM EDT Patient: Chasity Pino Date of : 1950 [...] at the office today complaining of a callusand bump that started to build up on [...] C) (Infrared) Laboratory and Additional Data Reviewed: Reviewed:[id number]} XR Foot Right 3+ Views (Standard) X-rays [...] decreased medial longitudinal arch documented in this [id number] History of Present illness Narrative* Reji Rose DPM - 01/31/2022 8:59 AM EST Patient: Chasity Pion Date of : 1950 (71 y.o.) PCP: [...] patient to remove the lesion and blister tomorrowand cover with Neosporin and a Band-Aid till [...] right foot are thick yellow dystrophic crumbly withsubungual debris. Patient has a white papillomatous lesion with pinpoint bleeders and pain on vash-xs-hyhd squeeze test on the plantar aspect of the right heel. 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 Vascular-DP and PT pulses are palpable bilateral feet. BP 133/75 (BP Location: Left arm, Patient Position: Sitting, BP Cuff Size: Adult) Pulse 61 Temp98.8 F (37.1 C) (Infrared) Laboratory and Additional Data Reviewed: Reviewed:[id number]} XR Foot Right 3+ Views (Standard) X-rays [...] decreased medial longitudinal arch documented in this [id number] History of Present illness Narrative* Reji Rose DPM - 01/03/2022 12:31 PM EST Patient: Chasity Pino Date of : 1950 [...] foot with pinpoint bleeders and pain on vtiw-ds-ttsk squeeze test consistent with verruca. The fifth toenail on the right foot was thick yellow dystrophic crumbly with subungual debris. Neuro-intact bilateral Musculoskeletal-decreased medial longitudinal arch bilateral feet. 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 Vascular-DP PT pulses are palpable bilateral feet BP 121/67 (BP Location: Left arm, Patient Position: Sitting, BP Cuff Size: Adult) Pulse (!) 48 Temp 98.5 F (36.9 C) (Infrared) Laboratory and Additional Data Reviewed: Reviewed:[id number]} XR Foot Right 3+ Views (Standard) X-rays [...] decreased medial longitudinal arch documented in this [id number] History of Present illness Narrative* Reji Rose DPM - 08/02/2021 9:27 AM EDT Patient: Chasity Pino Date of : 1950 [...] a callus on lateral side the fifth metatarsalbase as well. Patient had interruption of the skin lines and pain with zvef-su-ehqi squeeze test for the verruca Neuro-intact bilateral feet Musculoskeletal-decreased medial longitudinal arch bilateral feet with osteoarthritis of the right tarsometatarsal Vascular-DP and PT pulses palpable bilateral feet BP 107/64 (BP Location: Left arm, Patient Position: Sitting, BP Cuff Size: Adult) Pulse (!) 57 Temp 98 F (36.7 C) (Oral) Laboratory and Additional Data Reviewed: Reviewed:[id number]} XR Foot Right 3+ Views (Standard) X-rays [...] decreased medial longitudinal arch documented in this [id number] History of Present illness Narrative* Reji Rose DPM - 07/12/2021 8:34 AM EDT Patient: Chasity Pino Date of : 1950 (71 y.o.) PCP: Eben Vo MD Procedures ASSESSMENT/PLAN: Chasity Pino 71 y.o. male with history of resolved verruca of the left foot and 2 on the right heel. Plan: I debrided the lesions on the right heel and treated with histo freeze for 30 seconds. I toldpatient to call if these are not gone [...] papillomatous with pinpoint bleeders and pain on inld-wx-bdwb squeeze test on the bottom of the right heel. The lesions of the left foot have resolved. Neuro-intact bilateral feet Musculoskeletal-stiffness and swelling of the right ankle Vascular-DP and PT pulses are palpable bilateral feet BP 108/60 (BP Location: Right arm, Patient Position: Sitting, BP Cuff Size: Adult) Pulse (!) 44 Temp 97.9 F (36.6 C) (Infrared) Laboratory and Additional Data Reviewed: Reviewed:[id number]} XR Foot Right 3+ Views (Standard) X-rays [...] decreased medial longitudinal arch documented in this [id number] History of Present illness Narrative* Reji Rose DPM - 06/21/2021 9:00 AM EDT Patient: Chasity Pino Date of : 1950 [...] Patient is in need of some new losm-kdh-uetjecp orthotics so I told him to go to [facility] for a new set. Review of Systems: Unremarkable OBJECTIVE: Physical Examination: Integument-there is a papillomatous lesion with pinpoint bleeders and pain on side to side squeeze test on the plantar aspect of the fifth metatarsal shaft of the left. There is a well-healed scar onthe lateral side the fifth metatarsal base of the right foot Neuro-intact bilateral feet. Patient has some swelling and pain across the anterior aspect the right ankle joint as well as over the right subtalar joint. Patient's tarsometatarsal joint on the rightfoot is stiff. There is no pain over the base the fifth metatarsal on the right Musculoskeletal-the bony prominences of both fifth metatarsal bases has been removed. Vascular-DP and PT pulse are palpable bilateral feet BP 113/70 (BP Location: Left arm) Pulse 77 Temp 98 F (36.7 C) (Oral) Laboratory and Additional Data Reviewed: Reviewed:[id number]} XR Foot Right 3+ Views (Standard) X-rays [...] decreased medial longitudinal arch documented in this [id number] History of Present illness Narrative* Reji Rose DPM - 2021 9:35 AM EDT Patient: Chasity Pino Date of : 1950 (71 y.o.) PCP: Eben Vo MD Procedures ASSESSMENT/PLAN: Chasity Pino 71 y.o. male with history of status post excision of bone spur fifth metatarsal baseright foot doing well. 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 OBJECTIVE: Physical Examination: Integument-there is a white papillomatous lesion with a pinpoint bleeders and pain on vbgx-ge-ncpp squeeze test on the bottom of the fifth metatarsal base of the left foot. Patient is a callus on thelateral sides of both fifth metatarsal bases has [...] C) (Oral) Laboratory and Additional Data Reviewed: Reviewed:[id number]} XR Foot Right 3+ Views (Standard) X-rays [...] decreased medial longitudinal arch documented in this [id number] History of Present illness Narrative* Reji Rose DPM - 05/10/2021 9:18 AM EDT Patient: Chasity Pino Date of : 1950 (70 y.o.) PCP: Eben Vo MD Procedures ASSESSMENT/PLAN: Chasity Pino 70 y.o. male with history of status post excision of fifth metatarsal base exostosisright foot doing well. New onset of avulsion fracture of the navicular tuberosity right foot. Plan: I have asked patient to wear his cam walker boot for another 2 weeks. Patient is to bring hisarticulating AFO at the next visit we will george-ray him and consider graduating to it. I told patient that his midfoot bones are not in great health due to his past injuries and fusion. Patient has toexercise caution with activities. Reappoint in 2 weeks [...] stepped out of his patio this past weekendand felt a pull or injury to the [...] C) (Oral) Laboratory and Additional Data Reviewed: Reviewed:[id number]} XR Foot Right 3+ Views (Standard) X-rays 3 views right foot: There is been excision of the fifth metatarsal base exostosis lateral plantarly. Patient's had past tarsometatarsal joint fusion documented in this [id number] History of Present illness Narrative* Reji Rose DPM - 04/19/2021 3:19 PM EST Patient: Chasity Pino Date of : 1950 (70 y.o.) PCP: Eben Vo MD Procedures ASSESSMENT/PLAN: Chasity Pino 70 y.o. male with history of status post excision of exostosis fifth metatarsal baseright foot doing well. Plan: I told patient [...] underwent exostectomy last Friday and has been doingwell. Patient did have some swelling on the [...] Sitting, BP Cuff Size: Adult) Pulse 69 Temp98.2 F (36.8 C) (Oral) Laboratory and Additional Data Reviewed: Reviewed:[id number]} XR OR Foot Rt 2 Views Narrative: [...] provided images that intraoperative interpretation was performed. Seeoperative note. Workstation ID: [id number] documented in this [id number] Note* Addendum Note - Reji Rose DPM - 04/13/2021 7:40 AM ESTAddended by: REJI ROSE on: 04/13/2021 07:40 AM Modules accepted: Orders [id number] Miscellaneous Notes* Addendum Note - Reji Rose DPM - 04/13/2021 7:40 AM ESTAddended by: REJI ROSE on: 04/13/2021 07:40 AM Modules accepted: Orders documented in this [id number] History of Present illness Narrative* Reji Rose DPM - 04/05/2021 9:01 AM EST Podiatry Outpatient H&P 04/05/2021 Reji Rose DPM @[facility]@ Patient: Chasity Pino Date of : 1950 (70 y.o.) PCP: Eben Vo MD @HOSPC[facility]SE@ ASSESSMENT/PLAN: Chasity Pino 70 y.o. male with [...] the surgery which include infection, bleeding, numbness, delayedhealing, swelling, scar and recurrence. After all questions were answered patient signed the consent form. Assessment & plan notes cannot be loaded without a specified hospital service. SUBJECTIVE: Chief Complaint/Reason for Visit: Patient is a 70-year-old male seen at the office complaining of apainful callus on the plantar lateral aspect the [...] for the 04/05/21 encounter (Office Visit) with Reji Rose DPM: ascorbic acid (VITAMIN C ORAL), Take by mouth Morning . rivaroxaban (XARELTO) 10 mg tablet, Take 10 mg by mouth daily Morning . OBJECTIVE: Physical Examination: Integument-there is a callus on the lateral aspect the fifth metatarsal base right foot. The secondand fifth toenails are thick yellow dystrophic crumbly [...] 04/05/21 9:01 AM: Radiology documented in this [id number] History of Present illness Narrative* Reji Rose DPM - 04/05/2021 9:01 AM EST Podiatry Outpatient H&P 04/05/2021 Reji Rose DPM @[facility]@ Patient: Chasity Pino Date of [...] the surgery which include infection, bleeding, numbness, delayedhealing, swelling, scar and recurrence. After all questions were answered patient signed the consent form. Assessment & plan notes cannot be loaded without a specified hospital service. SUBJECTIVE: Chief Complaint/Reason for Visit: Patient is a 70-year-old male seen at the office complaining of apainful callus on the plantar lateral aspect the [...] for the 04/05/21 encounter (Office Visit) with Reji Rose DPM: ascorbic acid (VITAMIN C ORAL), Take by mouth Morning . rivaroxaban (XARELTO) 10 mg tablet, Take 10 mg by mouth daily Morning . OBJECTIVE: Physical Examination: Integument-there is a callus on the lateral aspect the fifth metatarsal base right foot. The secondand fifth toenails are thick yellow dystrophic crumbly [...] 04/05/21 9:01 AM: Radiology documented in this [id number] History of Present illness Narrative* Reji Rsoe DPM - 02/22/2021 8:36 AM EST Patient: Chasity Pino Date of : 1950 [...] the lateral plantar aspect of the fifth metatarsalbase of the right foot. Patient has a decreased medial longitudinal arch with a fused tarsometatarsal joint. Vascular-DP PT pulses are palpable on the right foot BP 134/70 (BP Location: Left arm) Pulse 67 Temp 98 F (36.7 C) (Oral) Laboratory and Additional Data Reviewed: Reviewed:[id number]} XR Foot Right 3+ Views (Standard) X-rays 3 views right foot. Patient has significant degenerative changes throughout the fourth and fifth metatarsal base cuboid joint. Patient has an inferior calcaneal heel spur and a decreased medial longitudinal arch. No signs of stress fracture. 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 I recommended [facility] for any new pairs. [facility] with [facility]. I offered patient an exostectomy for the fifth metatarsal base of the right foot if he istired of the callus returning. patient to reappoint [...] C) (Infrared) Laboratory and Additional Data Reviewed: Reviewed:[id number]} XR Foot Right 3+ Views (Standard) X-rays 3 views right foot. Patient has significant degenerative changes throughout the fourth and fifth metatarsal base cuboid joint. Patient has an inferior calcaneal heel spur and a decreased medial longitudinal arch. No signs of stress fracture. documented in this [id number] History of Present illness Narrative* Reji Rose DPM - 11/23/2020 10:31 AM EDT Patient: Chasity Pino Date of : 1950 [...] callus off the fifth metatarsal base on theright foot with a #15 blade. Reappoint in [...] C) (Infrared) Laboratory and Additional Data Reviewed: Reviewed:[id number]} XR Foot Right 3+ Views (Standard) X-rays 3 views right foot. Patient has significant degenerative changes throughout the fourth and fifth metatarsal base cuboid joint. Patient has an inferior calcaneal heel spur and a decreased medial longitudinal arch. No signs of stress fracture. documented in this [id number] History of Past illness Narrative* Problem Noted Date Resolved Date Status post cataract extract ion and insertion of intraocular lens of right eye 02/28/2020 08/09/2020 Status post cataract extract ion and insertion of intraocular lens of left eye 01/21/2020 08/09/2020 Ocular hypertension, bilateral 01/17/2020 1 03/25/2020 Combined form of age-related cataract, right eye 01/10/2020 02/28/2020 Combined form of age-related cataract, left eye 01/10/2020 01/21/2020 documented as of this encounter (statuses as of 07/25/2021) [facility] Diagnosis Post-traumatic arthritis of right foot- Primary Plantar fasciitis of right foot Onychomycosis of toenail [facility] Diagnosis Post-traumatic osteoarthritis of right foot- Primary Pes planovalgus Other congenital valgus deformity of feet Onychomycosis Dermatophytosis of nail [facility]* Diagnosis Exostosis of right foot- Primary Onychomycosis Dermatophytosis of nail Pain in right toe(s) [facility] Diagnosis Exostosis of right foot- Primary Onychomycosis Dermatophytosis of nail Pain in right toe(s) [facility]* Diagnosis Pre-op testing- Primary Unspecified pre-operative examination Pre-op testing Unspecified pre-operative examination Exostosis of right foot Pain in right toe(s) Pre-op testing Unspecified pre-operative examination Exostosis of right foot Pain in right toe(s) [facility]* Diagnosis Pre-op testing Unspecified pre-operative examination Exostosis of right foot Pain in right toe(s) Exostosis of right foot- Primary Onychomycosis Dermatophytosis of nail Callus of foot Corns and callosities Pre-op testing Unspecified pre-operative examination Exostosis of right foot Pain in right toe(s) [facility] Diagnosis Exostosis of right foot- Primary Onychomycosis Dermatophytosis of nail Callus of foot Corns and callosities [facility]* Diagnosis No post-op complications- Primary [facility]* Diagnosis Posterior tibial tendonitis, right- Primary Posterior tibial tendonitis, right [facility]* Diagnosis Plantar warts- Primary Plantar wart Pain in left foot Pain in soft tissues of limb [facility] Diagnosis Verruca vulgaris- Primary Viral warts, unspecified Arthritis of right foot Pain in left foot Pain in soft tissues of limb [facility] Diagnosis Verrucae vulgaris- Primary Viral warts, unspecified Pain in right foot Pain in soft tissues of limb [facility] Diagnosis Patient left without being seen- Primary Surgical or other procedure not carried out because of patient's decision [facility] Diagnosis Onset Date Resolution Status LEMUS (dyspnea on exertion) ac enterprise Essential hypertension acute Hyperlipidemia chronic Paroxysmal atrial fibrillation [facility] Work Phone: Evaluation note* Diagnosis Onset Date Resolution Status Essential hypertension acute Hyperlipidemia chronic Paroxysmal atrial fibrillation chronic Essential hypertension acute Hyperlipidemia chronic Paroxysmal atrial fibrillation [facility] Work Phone: Evaluation note* Diagnosis Onychomycosis- Primary Dermatophytosis of nail Verrucae vulgaris Viral warts, unspecified Pain of toe of right foot [facility] Diagnosis Onychomycosis- Primary Dermatophytosis of nail Verrucae vulgaris Viral warts, unspecified Pain in toe of right foot Pain in soft tissues of limb Pain in right foot [M79.671 (ICD-10-CM)] Pain in soft tissues of limb [facility] Diagnosis Exostosis of left foot- Primary Callus of foot Corns and callosities [facility] Diagnosis Callus of foot- Primary Corns and callosities Acquired left hindfoot varus Exostosis Exostosis of unspecified site Pain of toe of right foot [M79.674] Onychomycosis [B35.1] Dermatophytosis of nail [facility] Diagnosis Chest wall pain- Primary Painful respiration Longstanding persistent atrial fibrillation (CMS/HCC) Dyspepsia Dyspepsia and other specified disorders of function of stomach documented in this encounter [facility] Work Phone: Evaluation note* Diagnosis Verrucae vulgaris- [...] function of stomach documented in this encounter [facility] Work Phone: Evaluation note* Diagnosis Onset Date Resolution Status Essential hypertension acute Hyperlipidemia chronic Paroxysmal atrial fibrillation [facility] Work Phone: Evaluation note* Diagnosis Onset Date Resolution Status Essential hypertension acute Hyperlipidemia chronic Paroxysmal atrial fibrillation chronic LEMUS (dyspnea on exertion) ac enterprise Nonischemic cardiomyopathy a cute Paroxysmal atrial fibrillation chronic Acute renal insufficiency ac enterprise Chest pain acute Non-ST elevated myocardial infarction acute [facility] Work Phone: Evaluation note* Diagnosis Onset Date Resolution Status Essential hypertension acute Hyperlipidemia chronic Paroxysmal atrial fibrillation chronic LEMUS (dyspnea on exertion) ac enterprise Nonischemic cardiomyopathy a cute Paroxysmal atrial fibrillation chronic Acute renal insufficiency ac enterprise Chest pain acute Essential hypertension acute Non-ST elevated myocardial infarction acute Nonischemic cardiomyopathy a cute Paroxysmal atrial fibrillation [facility] Work Phone: Evaluation note* Diagnosis Onset Date Resolution Status Hyperlipidemia chronic LEMUS (dyspnea on exertion) ac enterprise Acute renal insufficiency re solved Chest pain resolved [facility] Work Phone: Evaluation note* Diagnosis Non-ischemic cardiomyopathy (CMS/HCC)- Primary Other primary cardiomyopathies Longstanding persistent atrial fibrillation (CMS/HCC) Dyspepsia Dyspepsia and other specified disorders of function of stomach documented in this encounter [facility] Work Phone: Evaluation note* Diagnosis Onset Date Resolution Status Hyperlipidemia chronic LEMUS (dyspnea on exertion) ac enterprise Acute renal insufficiency re solved Chest pain resolved LEMUS (dyspnea on exertion) ac enterprise New onset atrial fibrillation [facility] Work Phone: Evaluation note* Diagnosis Abdominal bloating- Primary Flatulence, eructation, and gas pain documented in this encounter [facility] Work Phone: Evaluation note* Diagnosis Abdominal bloating Flatulence, eructation, and gas pain documented in this encounter [facility] Work Phone: Evaluation note* Diagnosis Abdominal bloating Flatulence, eructation, and gas pain documented in this encounter [facility] Work Phone: Evaluation note* Diagnosis Onset Date Resolution Status LEMUS (dyspnea on exertion) ac enterprise Acute renal insufficiency re solved Chest pain resolved [facility] Work Phone: Evaluation note* Diagnosis Abdominal bloating Flatulence, eructation, and gas pain documented in this encounter [facility] Work Phone: Evaluation note* Diagnosis Routine general medical examination at health care facility- Primary Routine general medical examination at a health care facility Longstanding persistent atrial fibrillation (CMS/HCC) Dyspepsia Dyspepsia and other specified disorders of function of stomach Non-ischemic cardiomyopathy (CMS/HCC) Other primary cardiomyopathies documented in this encounter [facility] Work Phone: Evaluation note* Diagnosis Onset Date Resolution Status LEMUS (dyspnea on exertion) ac enterprise Acute renal insufficiency re solved [facility]* Diagnosis Callus of foot- Primary Corns and callosities Exostosis of left foot Heel spur, right Onychomycosis [B35.1] Dermatophytosis of nail Exostosis of right foot Toe pain, bilateral [M79.674, M79.675] [facility]* Diagnosis Onset Date Resolution Status Belching acute [facility] Work Phone: Evaluation note* Diagnosis Callus of foot- Primary Corns and callosities Exostosis of left foot Ankle instability, left [facility]* Diagnosis Flatulence/gas pain/belching- Primary Flatulence, eructation, and gas pain documented in this encounter [facility] Work Phone: Evaluation note* Diagnosis Toe pain, bilateral [M79.674, M79.675]- Primary Callus of foot Corns and callosities Onychomycosis [B35.1] Dermatophytosis of nail Ankle instability, left [facility]* Diagnosis Abdominal bloating- Primary Flatulence, eructation, and gas pain Small intestinal bacterial overgrowth (SIBO) Dyspepsia Dyspepsia and other specified disorders of function of stomach documented in this encounter [facility] Work Phone: Evaluation note* Diagnosis Small intestinal bacterial overgrowth- Primary documented in this encounter [facility] Work Phone: Evaluation note* Diagnosis Toe pain, bilateral [M79.674, M79.675]- Primary Callus of foot Corns and callosities Onychomycosis Dermatophytosis of nail [facility]* Diagnosis Abdominal bloating- Primary Flatulence, eructation, and gas pain Small intestinal bacterial overgrowth Flatulence/gas pain/belching Flatulence, eructation, and gas pain documented in this encounter [facility] Work Phone: Evaluation note* Diagnosis Pre-op testing Unspecified pre-operative examination Exostosis of right foot Paroxysmal atrial fibrillation (HCC) Atrial fibrillation Onychomycosis- Primary Dermatophytosis of nail Callus of foot Corns and callosities Ankle instability, left Chronic toe pain, bilateral [facility]* Diagnosis Primary insomnia- Primary Persistent disorder of initiating or maintaining sleep Acquired hypothyroidism Unspecified hypothyroidism documented in this encounter [facility] Work Phone: Evaluation note* Diagnosis 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 Preglaucoma, unspecified Optic cupping of both eyes Pseudophakia of both eyes Lens replaced by other means High myopia, both eyes Myopia Atrial fibrillation, unspecified type (HCC) Essential hypertension Unspecified essential hypertension Benign prostatic hyperplasia without lower urinary tract symptoms [facility] Diagnosis 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 Preglaucoma, unspecified Optic cupping of both eyes Pseudophakia of both eyes Lens replaced by other means High myopia, both eyes Myopia Atrial fibrillation, unspecified type (HCC) Essential hypertension Unspecified essential hypertension Benign prostatic hyperplasia without lower urinary tract symptoms [facility]* Diagnosis Pre-op testing Unspecified pre-operative examination Exostosis of right foot Paroxysmal atrial fibrillation (HCC) Atrial fibrillation Right foot pain- Primary Pain in soft tissues of limb Onychomycosis Dermatophytosis of nail Callus of foot Corns and callosities Pain of toes of both feet [M79.674, M79.675] Arthritis of midtarsal joint of right foot [facility]* Diagnosis Pre-op testing Unspecified pre-operative examination Exostosis of right foot Paroxysmal atrial fibrillation (HCC) Atrial fibrillation Verrucae vulgaris- Primary Viral warts, unspecified Pain in both feet [facility]* Diagnosis Routine general medical examination at health care facility- Primary Routine general medical examination at a health care facility Acquired hypothyroidism Unspecified hypothyroidism Congestive heart failure, unspecified HF chronicity, unspecified heart failure type documented in this encounter [facility] Work Phone: Evaluation note* Diagnosis Pre-op testing Unspecified pre-operative examination Exostosis of right foot Paroxysmal atrial fibrillation (HCC) Atrial fibrillation Pain in both feet- Primary Verrucae vulgaris Viral warts, unspecified [facility]* Diagnosis Open angle with borderline findings and low glaucoma risk in both eyes- Primary Open angle with borderline findings, low risk [facility]* The patient is [...] again in the next month * 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 * Ankle Laxity: Chronic: Exercises ([place]) documented in [facility] encounter[facility]HealthReason for referral (narrative)* Consultation (Routine) - Authorized Specialty Diagnoses / Procedures Referred By Contac t Referred To Contact Primary Care Diagnoses Longstanding persistent atrial fibrillation ([facility]) Dyspepsia Procedures Follow Up In Primary Care - Established Eben Vo MD [address] [id number] Referral ID Status Reason Start Date Expiration Date V isits Requested Visits Authorized [id number] Authorized 11/01/2022 04/30/2023 1 1 * Consultation (Routine) - Authorized Specialty Diagnoses / Procedures Referred By Contrashard t Referred To Contact Gastroenterology Diagnoses Dyspepsia Procedures TX OFFICE/OUTPATIENT [facility] 60-74 MINUTES Eben Vo MD [address] [place] [address] Referral ID Status Reason Start Date Expiration Date Visits Requested Visits Authorized [id number] Authorized Specialty Services Required 11/01/2022 04/30/2023 1 1 [facility] Work Phone: Revqhl for referral (narrative)* Consultation (Routine) - Authorized Specialty Diagnoses / Procedures Referred By Holger thornton Referred To Contact Primary Care Diagnoses Longstanding persistent atrial fibrillation (CMS/HCC) Dyspepsia Non-ischemic cardiomyopathy (CMS/HCC) Procedures Follow Up In Primary Care Eben Vo MD [address] [place], [place] [id number] Referral ID Status Reason Start Date Expiration Date V isits Requested Visits Authorized [id number] Authorized 12/13/2022 12/13/2023 1 1 [facility] Work Phone: Redouo for referral (narrative)* Consultation (Routine) - Authorized Specialty Diagnoses / Procedures Referred By Holger thornton Referred To Contact Primary Care Diagnoses Longstanding persistent atrial fibrillation (CMS/HCC) Dyspepsia Non-ischemic cardiomyopathy (CMS/HCC) Routine general medical examination at health care facility Procedures Follow Up In Primary Care Eben Vo MD [address] [place] [address] Referral ID Status Reason Start Date Expiration Date V isits Requested Visits Authorized [id number] Authorized 03/18/2023 03/17/2024 1 1 [facility] Work Phone: Reezdu for referral (narrative)No reason for referral information [facility]WAult[facility] Work Phone: Assessments Diagnosis Carpal tunnel [...] acute myoc ardial infarction: Sister(V17.3, Z82.49) Status:Active Relationship Condition Age at Onset Recorded Date/T viviana mother Diabetes mellitus Unknown father Congestive heart failure Unknown [place]' lung Unknown sister Myocardial infarction Unknown Coronary artery disease Unknown Diabetes mellitus Unknown brother Diabetes mellitus Unknown Unknown Family Member Name Dates Details Family [...] FoundDocuments on File Type Date Recorded 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 Operations Specialist Expl anation Advance Directives and Living Will Documents on File Type Date Recorded 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 Operations Specialist Expl anation Advance Directives and Livin g Will 03/21/2021 2:51 PM Documents on File Type Date Recorded 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 Operations Specialist Expl anation Advance Directives and Livin g Will 04/11/2021 7:07 AM Latest Code Status on File Code Status Date Activated Date Inactivated Comments Full Code 04/11/2021 9:42 AM 04/11/2021 12:56 PM Advance Directive Response Recorded Date/ Time Advance Directives Yes April 21 8:26am Living Will Yes April 21, 2018 8:26am Power of Corporate Travel Consultant Yes April 21 8:26am Latest Code Status on File Date Activated Date Inactivated Comments 04/11/2021 9:42 AM 04/11/2021 12:56 PM Latest Code Status on File Code Status Date Activated Date Inactivated Comments Full Code 04/11/2021 9:42 AM 04/11/2021 12:56 PM Advance Directive Response Recorded Date/ Time Name of Medical Power of Corporate Travel Consultant Nellie- spouse December 03, 2022 6:12am Advance Directives Yes April 21 8:26am Living Will Yes December 03 6:12am Power of Corporate Travel Consultant Yes December 03, 2022 6:12am Advance Directive Response Recorded Date/ Time Name of Medical Power of Corporate Travel Consultant Nellie- spouse December 03, 2022 9:58am Advance Directives Yes April 21 8:26am Living Will Yes December 03 9:58am Power of Corporate Travel Consultant Yes December 03, 2022 9:58am Advance Directive Response Recorded Date/ Time Name of Medical Power of Corporate Travel Consultant Nellie- spouse December 03, 2022 8:58am Advance Directives Yes April 21 7:26am Living Will Yes December 03 8:58am Power of Corporate Travel Consultant Yes December 03, 2022 8:58am Advance Directive Response Recorded Date/ Time Advance Directives on File No 2022 11:30am Name of Medical Power of Corporate Travel Consultant [place]- spouse January 07, 2023 11:30am Advance Directives Yes December 11:30am Living Will Yes January 07, 023 11:30am Power of Corporate Travel Consultant Yes January 07, 2023 11:30am Name of Medical Power of Corporate Travel Consultant Nellie- spouse December 03, 2022 8:58am Advance Directive Response Recorded Date/ Time Advance Directives on File No Novem 2022 11:30am Name of Medical Power of Corporate Travel Consultant [place]- spouse January 07, 2023 11:30am Name of Medical Power of Corporate Travel Consultant Nellie- spouse December 03, 2022 8:58am Advance Directives Yes December 11:30am Living Will Yes March 20 2:00pm Power of Corporate Travel Consultant Yes March 20, 2023 2:00pm Advance Directive Response Recorded Date/ Time Name of Medical Power of Corporate Travel Consultant RANCHO PINO March 20, 2023 2:00pm Advance Directives Yes December 11:30am Living Will Yes March 20 2:00pm Power of Corporate Travel Consultant Yes March 20, 2023 2:00pm Advance Directives on File No Novem 2022 11:30am Name of Medical Power of Corporate Travel Consultant [place]- spouse January 07, 2023 11:30am Advance Directive Response Recorded Date/ Time Name of Medical Power of Corporate Travel Consultant RANCHO MOJICA March 20, 2023 3:00pm Advance Directives Yes December 12:30pm Living Will Yes March 20 3:00pm Power of Corporate Travel Consultant Yes March 20, 2023 3:00pm Date Activated Date Inactivated Comments 04/11/2021 9:42 AM 04/11/2021 12:56 PM Advance Directive Response Recorded Date/ Time Living Will Yes February 22 7:17pm Do you have a Healthcare Pow er of Corporate Travel Consultant? Yes February 23, 2024 7:17pm Name of Medical Power of Corporate Travel Consultant - JEYSON A February 23, 2024 7:17pm Living Will Yes March 20 3:00pm Do you have a Healthcare Pow er of Corporate Travel Consultant? Yes March 20, 2023 3:00pm Advance Directives Yes December 12:30pm Advance Directive Response Recorded Date/ Time Living Will Yes February 22 7:17pm Do you have a Healthcare Pow er of Corporate Travel Consultant? Yes February 23, 2024 7:17pm Name of Medical Power of Corporate Travel Consultant - JEYSON Banks February 23, 2024 7:17pm Advance Directives Yes December 12:30pm Chief Complaint and Reason for Visit Chief Complaint 6 M FU INT LABS Reason for Visit LEMUS (dyspnea on exer tion) Essential hypertension Hyperlipidemia Paroxysmal atrial fibrillation Chief Complaint 6 M FU INT LABS AFIB Reason for Visit LEMUS (dyspnea on exer tion) Essential hypertension Hyperlipidemia Paroxysmal atrial fibrillation Chief Complaint AFIB 6 wk fu 3 SINUSITIS Reason for Visit Essential hypertensi on Hyperlipidemia Paroxysmal atrial fibrillation Essential hypertension Hyperlipidemia Paroxysmal atrial fibrillation Chief Complaint 1 Y FU PREV PFM e order Reason for Visit Essential hypertensi on Hyperlipidemia Paroxysmal atrial fibrillation Chief Complaint 1 Y FU PREV PFM e order EORDERS Reason for Visit Essential hypertensi on Hyperlipidemia Paroxysmal atrial fibrillation Chief Complaint 1 Y FU PREV PFM e order EORDERS Dyspnea, unspecified Amb Documentation E ORDERS SOB PER NSTEMI Reason for Visit Essential hypertensi on Hyperlipidemia Paroxysmal atrial fibrillation LEMUS (dyspnea on exertion) Nonischemic cardiomyopathy Paroxysmal atrial fibrillation Acute renal insufficiency Chest pain Non-ST elevated myocardial infarction Chief Complaint 1 Y FU PREV PFM e order EORDERS Dyspnea, unspecified Amb Documentation E ORDERS SOB PER NSTEMI NSTEMI NSTEMI NSTEMI REGISTERED HIM PER [facility] Reason for Visit Essential hypertensi on Hyperlipidemia Paroxysmal atrial fibrillation LEMUS (dyspnea on exertion) Nonischemic cardiomyopathy Paroxysmal atrial fibrillation Acute renal insufficiency Chest pain Essential hypertension Non-ST elevated myocardial infarction Nonischemic cardiomyopathy Paroxysmal atrial fibrillation Chief Complaint 1 Y FU PREV PFM e order EORDERS Dyspnea, unspecified Amb Documentation E ORDERS SOB PER NSTEMI NSTEMI NSTEMI NSTEMI REGISTERED HIM PER [facility] Reason for Visit Hyperlipidemia LEMUS (dyspnea on exertion) Acute renal insufficiency Chest pain Chief Complaint 1 Y FU PREV PFM e order EORDERS Dyspnea, unspecified Amb Documentation E ORDERS SOB PER NSTEMI NSTEMI NSTEMI NSTEMI REGISTERED HIM PER [facility] A-FIB EORDER S/P [facility] 12/04 Reason for Visit Hyperlipidemia LEMUS (dyspnea on exertion) Acute renal insufficiency Chest pain LEMUS (dyspnea on exertion) New onset atrial fibrillation Chief Complaint e order EORDERS Dyspnea, unspecified Amb Documentation E ORDERS SOB PER NSTEMI NSTEMI NSTEMI NSTEMI REGISTERED HIM PER [facility] A-FIB EORDER S/P [facility] 12/04 A-FIB A-FIB A-FIB S/P [facility] E ORDERS Reason for Visit LEMUS (dyspnea on exer tion) Acute renal insufficiency Chest pain Chief Complaint e order EORDERS Dyspnea, unspecified Amb Documentation E ORDERS SOB PER NSTEMI NSTEMI NSTEMI NSTEMI REGISTERED HIM PER [facility] A-FIB EORDER S/P [facility] 12/04 A-FIB A-FIB A-FIB S/P DCCV E ORDERS Other cardiomyopathies Reason for Visit LEMUS (dyspnea on exer tion) Acute renal insufficiency Chest pain Chief Complaint EORDERS Dyspnea, unspecified Amb Documentation E ORDERS SOB PER NSTEMI NSTEMI NSTEMI NSTEMI REGISTERED HIM PER [facility] A-FIB EORDER S/P [facility] 12/04 A-FIB A-FIB A-FIB S/P DCCV E ORDERS Other cardiomyopathies 3 M FU E ORDER Reason for Visit LEMUS (dyspnea on exer tion) Acute renal insufficiency Chest pain Chief Complaint E ORDERS SOB PER NSTEMI NSTEMI NSTEMI NSTEMI REGISTERED HIM PER [facility] A-FIB EORDER S/P [facility] 12/04 A-FIB A-FIB A-FIB S/P DCCV E ORDERS Other cardiomyopathies 3 M FU E ORDER E-ORDER CHOLECYSTITIS Reason for Visit LEMUS (dyspnea on exer tion) Acute renal insufficiency Chest pain Belching Chief Complaint S/P [facility] 12/04 A-FIB A-FIB A-FIB S/P DCCV E ORDERS Other cardiomyopathies 3 M FU E ORDER E-ORDER CHOLECYSTITIS MED CHECK / DISCUSS GALLBLADDER Pain Reason for Visit Belching Belching Chief Complaint Other cardiomyopathi es 3 M FU E ORDER E-ORDER CHOLECYSTITIS MED CHECK / DISCUSS GALLBLADDER Pain CARDIOMYOPATHY 9 m fu w HOOK UP per KR Reason for Visit Belching Belching Chief Complaint Admit Date RT KNEE BINTA PROTOCOL January 28 12:13pm ROBOTIC ASSISTED RIGHT TOTAL KNEE ARTHRO PLASTY, ER February 23, 2024 7:34am ROBOTIC ASSISTED RIGHT TOTAL KNEE ARTHRO PLASTY, ER February 23, 2024 4:00pm ROBOTIC ASSISTED RIGHT TOTAL KNEE ARTHRO PLASTY, ER February 24, 2024 2:19pm RIGHT LOWER EXT PAIN February 26, 2024 2 :49pm PER CONNIE May 21, 2024 11:2 7am E ORDERS May 21, 2024 12:2 3pm LEMUS May 25, 2024 9:28 am Reason for Visit Admit Date Osteoarthritis of right knee February 7:34am Status post total right knee replacement February 23, 2024 7:34am Atrial fibrillation with RVR May 21, 2024 11:27am Nonischemic cardiomyopathy May 21 11:27am Paroxysmal atrial fibrillation May 11:27am Chief Complaint Admit Date ROBOTIC ASSISTED RIGHT TOTAL KNEE ARTHRO PLASTY, ER February 23, 2024 7:34am ROBOTIC ASSISTED RIGHT TOTAL KNEE ARTHRO PLASTY, ER February 23, 2024 4:00pm ROBOTIC ASSISTED RIGHT TOTAL KNEE ARTHRO PLASTY, ER February 24, 2024 2:19pm RIGHT LOWER EXT PAIN February 26, 2024 2 :49pm PER CONNIE May 21, 2024 11:2 7am E ORDERS May 21, 2024 12:2 3pm LEMUS May 25, 2024 9:28 am Reason for Visit Admit Date Osteoarthritis of right knee February 7:34am Status post total right knee replacement February 23, 2024 7:34am Atrial fibrillation with RVR May 21, 2024 11:27am Nonischemic cardiomyopathy May 21 11:27am Chief Complaint Medicare wellness. Reason for Referral Specialty Diagnoses / Procedures Referred By Holger thornton Referred To Contact Radiology Diagnoses Abdominal bloating Procedures US abdomen complete Eben Vo MD [address] [place] [address] Referral ID Status Reason Start Date Expiration Date Visits Requested Visits Authorized [id number] Authorized Perform Procedure 3 01/16/2024 1 1 Specialty Diagnoses / Procedures Referred By Holger thornton Referred To Contact Radiology Diagnoses Abdominal bloating Procedures NM hepatobiliary w cholecystokinin Eben Vo MD [address] [place] [address] Referral ID Status Reason Start Date Expiration Date Visits Requested Visits Authorized [id number] Pending Review Perform Procedure 3 01/31/2024 3 3 Additional Source Comments (unrecognized sect ion and content) No Status Records FoundNo Status Records FoundNo Status Records FoundNo Status Records FoundNo Status Records FoundNo Status Records FoundNo Status Records FoundNo Status Records FoundNo Status Records FoundNo Status Records FoundNo Status Records FoundNo Status Records Found INFORMATION SOURCE (unrecogn ized section and content) DATE CREATED AUTHOR 06/06/2018 [facility] DATE CREATED AUTHOR AUTHOR'S ORGANIZ ATION 03/09/2021 [facility] DATE CREATED AUTHOR AUTHOR'S ORGANIZ ATION 04/20/2021 [facility] DATE CREATED AUTHOR AUTHOR'S ORGANIZ ATION 09/25/2021 [facility] [place] DATE CREATED AUTHOR AUTHOR'S ORGANIZ ATION 05/18/2022 [facility] DATE CREATED AUTHOR AUTHOR'S ORGANIZ ATION 11/03/2023 [facility] DATE CREATED AUTHOR AUTHOR'S ORGANIZ ATION 12/22/2023 [facility] DATE CREATED AUTHOR AUTHOR'S ORGANIZ ATION 05/03/2024 [facility] DATE CREATED AUTHOR AUTHOR'S ORGANIZ ATION 05/15/2024 [facility] DATE CREATED AUTHOR AUTHOR'S ORGANIZ ATION 05/29/2024 [facility] DATE CREATED AUTHOR AUTHOR'S ORGANIZ ATION 07/14/2024 [facility] DATE CREATED AUTHOR AUTHOR'S ORGANIZ ATION 07/18/2024 [facility] <item><item> Privacy Markings (unrecogniz ed section [...] Care Teams (unrecognized sec tion and content) Hand Collator Relationship Specialty Start Date End Date Eben Vo MD [address] [place] [address] PCP - General Family Medicine 07/15/17 Hand Collator Relationship Specialty Start Date End Date Eben Vo MD [address] [place] [address] PCP - General Family Medicine 07/15/17 Hand Collator Relationship Specialty Start Date End Date Eben Vo MD [address] [place], [place] [id number] PCP - General Family Medicine 07/15/17 Hand Collator Relationship Specialty Start Date End Date Eben Vo MD [address] [place], [place] [id number] PCP - General Family Medicine 07/15/17 Hand Collator Relationship Specialty Start Date End Date Eben Vo MD [address] [place] [address] PCP - General Family Medicine 07/15/17 Hand Collator Relationship Specialty Start Date End Date Eben Vo MD [address] [place] [address] PCP - General Family Medicine 07/15/17 Hand Collator Relationship Specialty Start Date End Date Eben Vo MD [address] [place], [place] [id number] PCP - General Family Medicine 07/15/17 Hand Collator Relationship Specialty Start Date End Date Eben Vo MD [address] [place], [place] [id number] PCP - General Family Medicine 07/15/17 Hand Collator Relationship Specialty Start Date End Date Eben Vo MD [address] [place], [place] [id number] PCP - General Family Medicine 07/15/17 Hand Collator Relationship Specialty Start Date End Date Eben oV MD [address] [place], [place] [id number] PCP - General Family Medicine 07/15/17 Hand Collator Relationship Specialty [place] [address] [place] [address] PCP - General Family Practice 01/03/20 Hand Collator Relationship Specialty Start Date End Date Eben Vo MD [address] [place] [address] PCP - General Family Medicine 07/15/17 Hand Collator Relationship Specialty Start Date End Date Eben Vo MD [address] [place] [address] PCP - General Family Medicine 07/15/17 Hand Collator Relationship Specialty Start Date End Date Eben Vo MD [address] [place] [address] PCP - General Family Medicine 07/15/17 Hand Collator Relationship Specialty Start Date End Date Lavelle Boone MD [address] [place] [address] PCP - [employer] Medicare Advantage PCP 02/17/21 Hand Collator Relationship Specialty Start Date End Date Eben Vo MD [address] [place] [address] PCP - General Family Medicine 07/15/17 Hand Collator Relationship Specialty Start Date End Date Eben Vo MD [address] [place] [address] PCP - General Family Medicine 07/15/17 Hand Collator Relationship Specialty Start Date End Date Lavelle Boone MD PCP - [employer] Medicare Advantage PCP 02/17/21 Eben Vo MD [address] [place] [address] PCP - General 10/15/22 Team Status: Active Member Role Status Dates Dr. Eben Vo MD Family Provider Active Dr. Dale Boone MD Primary Care Provider Active Team Status: Inactive Member Role Status Dates Dr. Dale Boone MD Primary Care Provider, Referr ing Provider Active Valentina Davidson WEB PRESS JOGGER, WEB PRESS JOGGER-C Attending Provider Active Team Status: Inactive Member Role Status Dates Dr. Dale Boone MD Primary Care Provider Active Dr. Louie Brown MD Attending Provider, Referring Pro vider Active Dr. Eben Vo MD Other Provider Active Team Status: Inactive Member Role Status Dates Dr. Dale Boone MD Primary Care Provider Active Valentina Davidson WEB PRESS JOGGER, WEB PRESS JOGGER-C Attending Provider, Referring P rovider Active Team Status: Active Member Role Status Dates Dr. Dale Boone MD Primary Care Provider Active Dr. Louie Brown MD Attending Provider, Referring Pro vider Active Team Status: Active Member Role Status Dates Dr. Dale Boone MD Primary Care Provider Active Valentina Davidson WEB PRESS JOGGER, WEB PRESS JOGGER-C Attending Provider Active Team Status: Active Member Role Status Dates Dr. Dale Boone MD Primary Care Provider Active Valentina Davidson WEB PRESS JOGGER, WEB PRESS JOGGER-C Attending Provider, Referring P rovider Active Team Status: Active Member Role Status Dates Dr. Dale Boone MD Primary Care Provider Active Dr. Tavo Wu DO Emergency Provider Active Dr. Lana Young MD Admit Provider, Attending Prov ider Active Team Status: Active Member Role Status Dates Dr. Dale Boone MD Primary Care Provider Active Dr. Tavo Wu DO Emergency Provider Active Dr. Lana Young MD Admit Provider, Other Provider Active Dr. Alfonso Blackwood MD Attending Provider Activ e Team Status: Active Member Role Status Dates Dr. Dale Boone MD Primary Care Provider Active Dr. Tavo Wu DO Emergency Provider Active Dr. Lana Young MD Admit Provider, Other Provider Active Dr. Louie Brown MD Attending Provider Active Team Status: Active Member Role Status Dates Dr. Dale Boone MD Primary Care Provider Active Dr. Tavo Wu DO Emergency Provider Active Dr. Lana Young MD Admit Provider, Attending Provider, Other Provider Active Team Status: Inactive Member Role Status Dates Dr. Dale Boone MD Primary Care Provider Active Dr. Tavo Wu DO Emergency Provider Active Dr. Lana Young MD Admit Provider, Attending Prov ider Active Team Status: Active Member Role Status Dates Dr. Dale Boone MD Primary Care Provider Active Dr. Lana Young MD Attending Provider Active Team Status: Inactive Member Role Status Dates Dr. Dale Boone MD Primary Care Provider Active Dr. Lana Young MD Attending Provider Active Hand Collator Relationship Specialty Start Date End Date Lavelle Boone MD [address] [place] [address] PCP - A[employer] Medicare Advantage PCP 02/17/21 Eben Vo MD [address] [place] [address] PCP - General 10/15/22 Lucille Gerard RN Care Sales Operations Manager 12/05/22 Team Status: Active Member Role Status Dates Dr. Dale Boone MD Primary Care Provider, Referr ing Provider Active Valentina Davidson WEB PRESS JOGGER, WEB PRESS JOGGER-C Attending Provider Active Team Status: Active Member Role Status Dates Dr. Dale Boone MD Primary Care Provider Active Dr. Louie Brown MD Attending Provider, Other Provide r Active Team Status: Inactive Member Role Status Dates Dr. Dale Boone MD Primary Care Provider Active Dr. Louie Brown MD Attending Provider, Referring Pro vider Active Hand Collator Relationship Specialty Start Date End Date Lavelle Boone MD [address] [place] [address] PCP - A[employer] Medicare Advantage PCP 02/17/21 Eben Vo MD [address] [place] [address] PCP - General 10/15/22 Lucille Gerard RN Care Sales Operations Manager 12/05/22 Hand Collator Relationship Specialty Start Date End Date Lavelle Boone MD [address] [place] [address] PCP - A[employer] Medicare Advantage PCP 02/17/21 Eben Vo MD [address] [place] [address] PCP - General 10/15/22 Lucille Gerard, feather sawyerSales Operations Manager 12/05/22 Hand Collator Relationship Specialty Start Date End Date Lavelle Boone MD [address] [place] [address] PCP - A[employer]na Medicare Advantage PCP 02/17/21 Eben Vo MD [address] [place] [address] PCP - General 10/15/22 Lucille Gerard, feather sawyerSales Operations Manager 12/05/22 Team Status: Active Member Role Status Dates Dr. Eben Vo MD Family Provider Active Dr. Eben Vo MD Primary Care Provider Active Team Status: Inactive Member Role Status Dates Dr. Dale Boone MD Referring Provider Active Dr. Louie Brown MD Attending Provider Active Dr. Eben Vo MD Primary Care Provider Active Team Status: Active Member Role Status Dates Dr. Louie Brown MD Attending Provider, Referring Provider, Other Provider Active Valentina Davidson WEB PRESS JOGGER, WEB PRESS JOGGER-C Other Provider Active Dr. Eben Vo MD Primary Care Provider Active Team Status: Active Member Role Status Dates Dr. Louie Brown MD Referring Provider, Other Provide r Active Valentina Davidson WEB PRESS JOGGER, WEB PRESS JOGGER-C Other Provider Active Dr. Eben Vo MD Primary Care Provider Active Dr. Remington Liu MD Attending Provider Active Team Status: Inactive Member Role Status Dates Dr. Eben Vo MD Primary Care Provider Active Valentina Davidson WEB PRESS JOGGER, WEB PRESS JOGGER-C Attending Provider, Referring P vee Active Team Status: Inactive Member Role Status Dates Dr. Louie Brown MD Attending Provider, Referring Pro vider Active Valentina Davidson WEB PRESS JOGGER, WEB PRESS JOGGER-C Other Provider Active Dr. Eben Vo MD Primary Care Provider Active Hand Collator Relationship Specialty Start Date End Date Lavelle Boone MD [address] [place] [address] PCP - A[employer]na Medicare Advantage PCP 02/17/21 Eben Vo MD [address] [place] [address] PCP - General 10/15/22 Lucille Gerard, feather sawyerSales Operations Manager 12/05/22 Team Status: Active Member Role Status Dates Dr. Eben Vo MD Primary Care Provider Active Dr. Louie Brown MD Attending Provider Active Team Status: Inactive Member Role Status Dates Dr. Dale Boone MD Referring Provider Active Valentina Davidson WEB PRESS JOGGER, WEB PRESS JOGGER-C Attending Provider Active Dr. Eben Vo MD Primary Care Provider Active Team Status: Active Member Role Status Dates Dr. Eben Vo MD Primary Care Provider Active Dr. Louie Brown MD Attending Provider, Referring Pro vider Active Hand Collator Relationship Specialty Start Date End Date Eben Vo MD [address] [place] [address] PCP - General 10/15/22 Eben Vo MD [address] [place] [address] PCP - A[employer] Medicare Advantage PCP 02/17/23 Lucille Gerard, feather sawyerSales Operations Manager 12/05/22 Team Status: Inactive Member Role Status Dates Dr. Eben Vo MD Primary Care Provider, Referr ing Provider Active Dr. Jorge Angulo MD Attending Provider Active Hand Collator Relationship Specialty Start Date End Date Eben Vo MD [address] [place] [address] PCP - General Family Medicine 07/15/17 Team Status: Active Member Role Status Dates Dr. Eben Vo MD Primary Care Provider, Referr ing Provider Active Dr. Jorge Angulo MD Attending Provider, Other Provider Active Team Status: Inactive Member Role Status Dates Dr. Eben Vo MD Primary Care Provider Active Dr. Jorge Angulo MD Attending Provider, Referr ing Provider Active Hand Collator Relationship Specialty Start Date End Date Eben Vo MD [address] [place] [address] PCP - General Family Medicine 07/15/17 Hand Collator Relationship Specialty Start Date End Date Eben Vo MD [address] [place] [address] PCP - General 10/15/22 Eben Vo MD [address] [facility] [place] [address] PCP - Aetna Medicare Advantage PCP 02/17/23 Hand Collator Relationship Specialty Start Date End Date Eben Vo MD [address] [place] [address] PCP - General 10/15/22 Eben Vo MD [address] [facility] [place] [address] PCP - Aetna Medicare Advantage PCP 02/17/23 Hand Collator Relationship Specialty Start Date End Date Eben Vo MD [address] [place] [address] PCP - General 10/15/22 Eben Vo MD [address] [place] [address] PCP - Aetna Medicare Advantage PCP 02/17/23 Hand Collator Relationship Specialty Start Date End Date Eben Vo MD [address] [address] PCP - Aet[employer] Medicare Advantage PCP 02/17/23 Eben Vo MD [address] [address] PCP - General Family Medicine 10/31/23 Hand Collator Relationship Specialty Start Date End Date Eben Vo MD [address] [place] [address] PCP - General Family Medicine 07/15/17 Hand Collator Relationship Specialty Start Date End Date Eben Vo MD [address] [address] PCP - A[employer] Medicare Advantage PCP 02/17/23 Eben Vo MD [address] [address] PCP - General Family Medicine 10/31/23 Hand Collator Relationship Specialty Start Date End Date Lavelle Boone MD [address] [place] [id number] PCP - General Family Medicine 01/03/20 Alka Preciado OD [address] [place] [address] Referring Optometry 02/11/23 Hand Collator Relationship Specialty Start Date End Date Lavelle Boone MD [address] [place] [address] PCP - General Family Medicine 01/03/[address] [place] [address] Referring Optometry 02/11/23 Hand Collator Relationship Specialty Start Date End Date Eben Vo MD [address] [place] [id number] PCP - General Family Medicine 07/15/17 Hand Collator Relationship Specialty Start Date End Date Eben Vo MD [address] [facility] [address] [place] [address] PCP - General Family Medicine 10/31/23 Ashley Cazares DO [address] [facility] [address] [place] [id number] PCP - Aetna Medicare Advantage PCP 02/18/24 Team Status: Active Member Role Status Dates Dr. Eben Vo MD Primary Care Provider Active Team Status: Inactive Member Role Status Dates Dr. Eben Vo MD Primary Care Provider Active Start: January 29, 2024 End: January 29, 2024 Dr. Myles Iraheta MD Attending Provider Active Start: January 29, 2024 End: January 29, 2024 Dr. Myles Iraheta MD Referring Provider Active Start: January 29, 2024 End: January 29, 2024 Team Status: Inactive Member Role Status Dates Dr. Eben Vo MD Primary Care Provider Active Start: February 23, 2024 End: February 24, 2024 Dr. Myles Iraheta MD Admit Provider Active Sta rt: February 23, 2024 End: February 24, 2024 Dr. Myles Iraheta MD Attending Provider Active Start: February 23, 2024 End: February 24, 2024 Dr. Myles Iraheta MD Referring Provider Active Start: February 23, 2024 End: February 24, 2024 Dr. Tersea Garcia MD Other Provider Active Star t: February 23, 2024 End: February 24, 2024 Dr. Eric Prince MD Other Provider Active Start: February 23, 2024 End: February 24, 2024 Dr. Lana Young MD Other Provider Active St art: February 23, 2024 End: February 24, 2024 Team Status: Active Member Role Status Dates Dr. Eben Vo MD Primary Care Provider Active Start: February 23, 2024 Dr. Myles Iraheta MD Admit Provider Active Sta rt: February 23, 2024 Dr. Myles Iraheta MD Referring Provider Active Start: February 23, 2024 Dr. Myles Iraheta MD Other Provider Active Sta rt: February 23, 2024 Dr. Janes Angulo DO Other Provider Active Start: February 23, 2024 Dr. Teresa Garcia MD Other Provider Active Star t: February 23, 2024 Dr. Eric Prince MD Other Provider Active Start: February 23, 2024 Dr. Elizabeth Tabor MD Attending Provider Active Start: February 23, 2024 Team Status: Active Member Role Status Dates Dr. Eben Vo MD Primary Care Provider Active Start: February 24, 2024 Dr. Myles Iraheta MD Admit Provider Active Sta rt: February 24, 2024 Dr. Myles Iraheta MD Other Provider Active Sta rt: February 24, 2024 Dr. Teresa Garcia MD Other Provider Active Star t: February 24, 2024 Dr. Eric Prince MD Other Provider Active Start: February 24, 2024 Dr. Lana Young MD Attending Provider Active Start: February 24, 2024 Dr. Lana Young MD Other Provider Active St art: February 24, 2024 Team Status: Inactive Member Role Status Dates Dr. Eben Vo MD Primary Care Provider Active Start: February 26, 2024 End: February 26, 2024 Bin SHARMA PA-C Attending Provider Active Start: February 26, 2024 End: February 26, 2024 Bin SHARMA PA-C Referring Provider Active Start: February 26, 2024 End: February 26, 2024 Team Status: Active Member Role Status Dates Dr. Eben Vo MD Primary Care Provider Active Start: February 26, 2024 Dr. Nish Middleton MD Attending Provider Active S tart: February 26, 2024 Bin SHARMA PA-C Referring Provider Active Start: February 26, 2024 Team Status: Inactive Member Role Status Dates Dr. Eben Vo MD Primary Care Provider Active Start: May 21, 2024 End: May 21, 2024 Dr. Eben Vo MD Referring Provider Active Start: May 21, 2024 End: May 21, 2024 Valerie Hooper Attending Provider Active Start: May 21, 2024 End: May 21, 2024 Team Status: Inactive Member Role Status Dates Dr. Eben Vo MD Primary Care Provider Active Start: May 21, 2024 End: May 21, 2024 Nimo SHARMA PA Attending Provider Active Start: May 21, 2024 End: May 21, 2024 Nimo SHARMA PA Referring Provider Active Start: May 21, 2024 End: May 21, 2024 Team Status: Active Member Role Status Dates Dr. Eben Vo MD Primary Care Provider Active Start: May 25, 2024 Nimo SHARMA PA Attending Provider Active Start: May 25, 2024 Nimo SHARMA PA Referring Provider Active Start: May 25, 2024 Hand Collator Relationship Specialty Start Date End Date Lavelle Boone MD [address] [place] [address] PCP - General Family Medicine 01/03/20 Alka Preciado OD [address] [place] [address] Referring Optometry 02/11/23 Team Status: Inactive Member Role Status Dates Dr. Eben Vo MD Primary Care Provider Active Start: May 25, 2024 End: May 25, 2024 Nimo SHARMA PA Attending Provider Active Start: May 25, 2024 End: May 25, 2024 Nimo SHARMA PA Referring Provider Active Start: May 25, 2024 End: May 25, 2024 Reason for Visit (unrecogniz ed section and content) Reason Comments Calluses Right foot callus. Nail Problem Right 5th toenail is thick and needs trimmed. Follow-up Left foot spur. Reason Comments Follow-up Follow up post truam [...] secondary cataract Procedures POST-CATARACT LASER SURGERY [facility] [id number] Abelardo Rivera MD [address] [place], [place] [id number] Abelardo Rivera MD [address] [place] [id number] Referral ID Status Reason Start Date Expiration Date Visits Re quested Visits Authorized [id number] Closed 07/11/2021 02/16/2022 1 1 Reason Comments [...] Primary Care - Established Eben Vo MD [address] [place] [address] Referral ID Status Reason Start Date Expiration Date V isits Requested Visits Authorized [id number] Authorized 11/01/2022 04/30/2023 1 1 Reason Comments [...] Procedures US abdomen complete Eben Vo MD [address] [place] [address] Referral ID Status Reason Start Date Expiration Date Visits Requested Visits Authorized [id number] Authorized Perform Procedure 3 01/16/2024 1 1 Specialty Diagnoses / Procedures Referred By Holger thornton Referred To Contact Radiology Diagnoses Abdominal bloating Procedures NM hepatobiliary w cholecystokinin Eben Vo MD [address] [place] [address] Referral ID Status Reason Start Date Expiration Date Visits Requested Visits Authorized [id number] Pending Review Perform Procedure 3 01/31/2024 3 3 Reason Comments Medicare Annual Wellness Visit Jose t Specialty Diagnoses / Procedures Referred By Holger thornton Referred To Contact Primary Care Diagnoses Longstanding persistent atrial fibrillation (CMS/HCC) Dyspepsia Non-ischemic cardiomyopathy (CMS/HCC) Procedures Follow Up In Primary Care Eben Vo MD [address] [place] [address] Referral ID Status Reason Start Date Expiration Date V isits Requested Visits Authorized [id number] Authorized 12/13/2022 12/13/2023 1 1 Reason Comments Foot Problem R heel pain, nail cu rving hard to trim and L foot bone spur/callus Reason Comments Follow-up Follow up callus, sp ur. Reason Comments Gas Pains Reason Comments Follow-up Patient presents for bilateral bone spurs. Patient has been wearing brace on left foot, is not very fond of it Reason Comments Follow-up Since last visit has had Gallbladder US, EGD- no biopsies taken, HIDA scan, blood work for celiac testing and CT scan. Gas Nausea Reason Comments Follow-up Finished Flagyl the first week of june and was feeling better. Pt reports symptoms of excessive gas are starting to come back. Bloated Reason Comments Nail Care Patient is here for three month follow up nail care and follow up bone spur. Reason Comments Follow-up 4 month follow up - still experiencing bloating/gas. Reason Comments Nail Care Callus care ------ L ankle pain - pt states that he has been wearing the ankle brace but is still having issues with the ankle rolling and almost makes him fall Reason Comments Pre-op Exam Reason Comments Floaters Both Eyes Reason Comments Glaucoma Suspect Follow Up Reason Comments Foot Pain Right foot pain sinc e knee replacement. Feels like water is dripping down leg. Calluses Callus care left juancarlos t Reason Comments Calluses L foot callus very p ainful - pt states that the callus is painful to the touch - Pt states that he has a callus on the R heel that has become painful as well Reason Comments Medicare Annual Wellness Visit Subsequen t 3 mo fu Specialty Diagnoses / Procedures Referred By Contac t Referred To Contact Primary Care Diagnoses Acquired hypothyroidism Procedures Follow Up In Primary Care Eben Vo MD [address] [address] Phone: tel: fax: Referral ID Status Reason Start Date Expiration Date V isits Requested Visits Authorized [id number] Authorized 02/06/2024 02/05/2025 1 1 Reason Comments Follow-up 3 wks [facility] Reason Comments Glaucoma Evaluation Source Comments (unrecognize d section and content) In the event this informatio n is protected by the Federal Confidentiality of Alcohol and Drug Abuse Patient Records regulations: The Federal rules restrict any use of the information to criminally investigate or prosecute any alcohol or drug abuse patient.[facility] the event this information is protected by the Federal Confidentiality of Alcohol and Drug Abuse Patient Records regulations: The Federal rules restrict any use of the information to criminally investigate or prosecute any alcohol or drug abuse patient.[facility] the event this information is protected by the Federal Confidentiality of Alcohol and Drug Abuse Patient Records regulations: The Federal rules restrict any use of the information to criminally investigate or prosecute any alcohol or drug abuse patient.[facility] the event this information is protected by the Federal Confidentiality of Alcohol and Drug Abuse Patient Records regulations: The Federal rules restrict any use of the information to criminally investigate or prosecute any alcohol or drug abuse patient.[facility] Goals (unrecognized section and content) Goals may be documented in a n alternate sectionGoals may be documented in an alternate sectionGoals may be documented in an alternate sectionGoals may be documented in an alternate sectionGoals may be documented in an alternate sectionGoals may be documented in an alternate section FOR RECORDS PERTAINING TO PATIENTS WHO ARE [...] BE BASED ON THE PRIMARY CLINICAL RECORDS. [facility]. provides no warranty or guarantee of the accuracy or completeness of information in this document.
== END | disposition home or self-care (01) ==
LOC: PSN 06:38
PROVIDERS: PCP Family Medicine; Referring Provider Physician Assistant Medical; Visit Provider Physician Assistant Medical
DX: I48.0 Paroxysmal atrial fibrillation (principal); R00.1 Bradycardia, unspecified; R00.0 Tachycardia, unspecified; R06.00 Dyspnea, unspecified
CPT/HCPCS: 93225; 93226

== ENCOUNTER → 2024-07-29 | Outpatient (CLI) | payer MEDICARE, SELFPAY ==
[2024-07-29 09:57] LABS: Anion Gap 10 (5-15); BUN 31 mg/dL (4-19); BUN/Creat Ratio 21.6 RATIO (10-20); Calcium,Total 8.7 mg/dL (7.6-11.0); Carbon Dioxide 27.5 mmol/L (21.0-32.0); Chloride 100 mmol/L (98-108); Creatinine, Serum 1.41 mg/dL (0.70-1.20); EST Glomerular Filtration Rate 53 (>60); Glucose 100 mg/dL (70-99); Potassium 4.4 mmol/L (3.3-5.1); Sodium Level 137 mmol/L (133-145)
== END | disposition home or self-care (01) ==
LOC: LAB 08:43
PROVIDERS: PCP Family Medicine; Referring Provider Physician Assistant Medical; Visit Provider Physician Assistant Medical
DX: I48.91 Unspecified atrial fibrillation (principal)
CPT/HCPCS: 36415; 80048

== ENCOUNTER → 2024-09-29 | Outpatient (CLI) | payer MEDICARE, SELFPAY ==
--- NOTE | 2024-09-29 13:43 | BI_ITS ---
EXAM: DIAG MAMM W/CAD, BILAT 09/29/2024 CLINICAL HISTORY: M, Age 74 y/o , MASS OF RIGHT BREAST TECHNIQUE: DIAG MAMM W/CAD, BILAT. COMPARISON: Baseline study. FINDINGS: TISSUE DENSITY: There are scattered areas of fibroglandular density. Bilateral Breast Mammographic Findings: Asymmetrical breast tissue were more breast tissue is seen in the retroareolar region of the right breast. This corresponds with the patient's palpable lump. Targeted sonographic correlation recommended. BI/DIAG MAMM W/CAD, BILAT IMPRESSION: Asymmetrical density in the right retroareolar region. Targeted sonographic co rrelation recommended. OVERALL FINAL ASSESSMENT BI-RADS 0: INCOMPLETE - NEED ADDITIONAL IMAGING EVALUATION. RECOMMENDATION: Ultrasound Recommended A letter with findings and recommendations will be mailed to the patient. Reading Location: [place] [address]
--- NOTE | 2024-09-29 13:43 | US_ITS ---
PROCEDURE: BREAST LIMITED UNILATERAL 09/29/2024 REASON FOR EXAM: M, Age 74 y/o , MASS OF RIGHT BREAST COMPARISON: Prior mammogram done earlier in the day.. TECHNIQUE: BREAST LIMITED UNILATERAL FINDINGS: The palpable lump corresponds to a 9 mm x 13 mm x 8 mm hypoechoic irregular nodular density. Biopsy recommended. US/Breast Limited Unilateral IMPRESSION: The palpable lump corresponds to a 9 mm x 13 mm x 8 mm hypoechoic irregular nod ular density. Biopsy recommended. BI-RADS 4: SUSPICIOUS RECOMMENDATION: Biopsy Recommended Reading Location: [place] [address]
== END | disposition home or self-care (01) ==
PROVIDERS: PCP Family Medicine; Referring Provider Family Medicine; Visit Provider Family Medicine
DX: N63.41 Unspecified lump in right breast, subareolar (principal)
CPT/HCPCS: 76642; 77062; 77066; G0279

== ENCOUNTER → 2024-10-12 | Outpatient (CLI) | payer MEDICARE, SELFPAY ==
--- NOTE | 2024-10-12 | BRBX_PTH ---
PATIENT: CHASITY PINO LOC: [facility] U#:[id number] AGE/SX: 74/M ROOM: RE10/12/[address]: Dr. Jorge Angulo MD : 1950 BED: DIS: 10/12/2024 SPEC #: [id number] RECD: 10/12/24 14:25 STATUS: QEU [place]INC[place] #: [id number] HERBERTH: 10/12/24 00:[address]: Jorge Angulo DEPT: SURGICAL PATHOLOGY RECD BY: Sabas Noble ENTERED: 10/13/24 10:53 SP TYPE: BREAST BX OTHR DR: Dr. Alfonso Vo MD Tissues: A - Right breast, NOS Procedures: Surgery Specimen Level V HEADER OPERATION: Right breast biopsy PRE-OP DIAGNOSIS: Right breast mass TISSUE SUBMITTED: A- Right breast tissue MICROSCOPIC DIAGNOSIS A. Right breast, mass, core biopsy: - Gynocomastia, benign. MICROSCOPIC DESCRIPTION Slides are reviewed. GROSS DESCRIPTION A. Received in formalin labeled with the patient's name and date of . Designated as R breast are 2 mack-yellow tissue cores, averaging 1.3 cm in length by 0.1 cm in diameter. Entirely submitted in 1 cassette. Cold ischemic time: <1-minuteFormalin fixation time: 30 hours, 30 minutes GA 10/13/2024 CPT:78813
== END | disposition home or self-care (01) ==
LOC: LABSPEC 14:26
PROVIDERS: PCP Family Medicine; Referring Provider Surgery; Visit Provider Surgery
DX: N63.10 Unspecified lump in the right breast, unspecified quadrant (principal)
CPT/HCPCS: 88305; 88307

== ENCOUNTER → 2024-12-31 | Outpatient (CLI) | payer MEDICARE, SELFPAY ==
--- NOTE | 2024-12-31 12:44 | ECHOD_ITS ---
Reason For Study Reason For Study: DYSPNEA/SOB Procedure This was a 2D Doppler, Color Flow transthoracic echocardiogram. Myocardial strain analysis was performed in this exam to aid in the assessment of cardiac function. Exam performed in department. Left Ventricle Normal LV size. Moderate concentric left ventricular hypertrophy. The left ventricular ejection fraction is 45 %. No regional wall motion abnormalities noted. Right Ventricle Normal RV size. Normal systolic function. Atria Normal left atrium. Normal right atrium. Mitral Valve Normal mitral valve. Tricuspid Valve Normal tricuspid valve. Mild (1+) tricuspid valve insufficiency. Pulmonary artery systolic pressure is 40 mmHg. Pulmonic Valve Normal pulmonic valve. Great Vessels Normal aortic root. The pulmonary artery is normal size. Inferior vena cava collapse with respiration. Pericardium/Pleural No pericardial effusion. MMode/2D Measurements & Calculations LVIDd: 4.5 cm IVSd: 1.4 cm Ao root diam: 3.1 cm LVIDs: 3.5 cm LVPWd: 1.4 cm RVDd: 4.2 cm FS: 22.6 % LAV(MOD-bp): 60.0 ml LVAd ap4: 28.7 cm2 LVAd ap2: 29.3 cm2 LAV(MOD-bp) Indexed: 32.6 ml/m2 LVLd ap4: 8.0 cm LVLd ap2: 7.4 cm LAV(MOD-sp2): 55.8 ml EDV(MOD-sp4): 87.1 ml EDV(MOD-sp2): 93.8 ml LAV(MOD-sp4): 58.6 ml EDV(sp4-el): 87.9 ml EDV(sp2-el): 97.8 ml LVAs ap4: 19.9 cm2 LVAs ap2: 20.0 cm2 LVLs ap4: 7.3 cm LVLs ap2: 6.9 cm ESV(MOD-sp4): 49.3 ml ESV(MOD-sp2): 50.1 ml ESV(sp4-el): 46.1 ml ESV(sp2-el): 49.3 ml EF(MOD-sp4): 43.4 % EF(MOD-sp2): 46.6 % EF(sp4-el): 47.6 % SV(MOD-sp4): 37.8 ml SV(MOD-sp2): 43.7 ml SV(sp4-el): 41.8 ml SI(MOD-sp4): 20.5 ml/m2 SI(MOD-sp2): 23.8 ml/m2 LA A4 area: 21.3 cm2 LA dimension(2D): 4.3 cm RA A4 area: 21.5 cm2 TAPSE: 1.5 cm Doppler Measurements & Calculations MV E max michele: 58.7 cm/sec Ao V2 max: 70.5 cm/sec LV V1 max: 50.6 cm/sec Ao max P.0 mmHg LV V1 max P.0 mmHg PA V2 max: 62.8 cm/sec TR max michele: 298.2 cm/sec TR max P.6 mmHg ECHO/Echo Complete Interpretation Summary Normal LV size. Moderate concentric left ventricular hypertrophy. The left ventricular ejection fraction is 45 %. The global longitudinal strain is severely abnormal. The global longitudinal st rain = -10% (abnormal). Compared to previous study, the left ventricular systolic function has worsened.. Ordering Physician: Nimo Loera Referring Physician: EBEN SMITH Performed By: Karina Wlide RDCS
== END | disposition home or self-care (01) ==
LOC: CVS 12:41
PROVIDERS: PCP Family Medicine; Referring Provider Physician Assistant Medical; Visit Provider Physician Assistant Medical
DX: R06.09 Other forms of dyspnea (principal); I42.9 Cardiomyopathy, unspecified
CPT/HCPCS: 93306

== ENCOUNTER → 2025-01-17 | Outpatient (CLI) | payer MEDICARE, SELFPAY ==
[2025-01-17 13:22] LABS: Hematocrit 50.4 % (40-54); Hemoglobin 16.4 g/dL (13.0-16.5); Immature Granulocytes Count 0.040 X10^3/uL (0.0-0.0); Mean Corp Hgb Conc 32.5 g/dL (32-36); Mean Corpuscular Volume 99.0 fL (80-94); Mean Platelet Vol. 10.3 fl (6.2-12.0); NRBC Flagged by Analyzer 0 % (0-5); Platelet Count 200 K/mm3 (150-450); RBC Distribution Width CV 13.2 % (11.6-14.6); RBC Distribution Width SD 48.5 fl (35.1-43.9); Red Blood Count 5.09 M/mm3 (4.6-6.2); White Blood Count 9.6 K/mm3 (4.4-11.0)
[2025-01-17 13:54] LABS: Anion Gap 9 (5-15); BUN 22 mg/dL (4-19); BUN/Creat Ratio 15.8 RATIO (10-20); Calcium,Total 9.5 mg/dL (7.6-11.0); Carbon Dioxide 29.2 mmol/L (21.0-32.0); Chloride 100 mmol/L (98-108); Glucose 105 mg/dL (70-99); Potassium 4.9 mmol/L (3.3-5.1); Pro- Brain NATRIURETIC PEPTIDE 4029 pg/mL (<=900)
== END | disposition home or self-care (01) ==
PROVIDERS: PCP Family Medicine; Referring Provider Nurse Practitioner Gerontology; Visit Provider Nurse Practitioner Gerontology
DX: I50.22 Chronic systolic (congestive) heart failure (principal); I42.9 Cardiomyopathy, unspecified; R06.02 Shortness of breath
CPT/HCPCS: 36415; 80048; 83880; 85025

== ENCOUNTER → 2025-01-19 | Outpatient (CLI) | payer MEDICARE, SELFPAY ==
--- NOTE | 2025-01-19 10:20 | RAD_ITS ---
PROCEDURE: CHEST PA AND LATERAL 01/19/2025 REASON FOR EXAM: SHORTNESS OF BREATH, CHRONIC CHF, COUGH TECHNIQUE: Procedure Code: RADCXR Modality: DX Procedure: CHEST PA AND LATERAL COMPARISON: None FINDINGS: Heart size is upper normal. Central vascularity appears normal. There is no focal infiltrate or consolidation. There is no pneumothorax or effusion. There is no acute bony abnormality. Aortic calcifications are visible. RAD/Chest PA and Lateral IMPRESSION: No acute process is identified in the chest. Reading Location: [facility]
== END | disposition home or self-care (01) ==
PROVIDERS: PCP Family Medicine; Referring Provider Nurse Practitioner Gerontology; Visit Provider Nurse Practitioner Gerontology
DX: R06.02 Shortness of breath (principal); R05.8 Other specified cough; M17.11 Unilateral primary osteoarthritis, right knee; J98.4 Other disorders of lung
CPT/HCPCS: 71046

== ENCOUNTER → 2025-01-24 | Outpatient (CLI) | payer MEDICARE, SELFPAY ==
[2025-01-24 10:27] LABS: Anion Gap 6 (5-15); BUN 22 mg/dL (4-19); BUN/Creat Ratio 18.6 RATIO (10-20); Calcium,Total 9.2 mg/dL (7.6-11.0); Carbon Dioxide 30.5 mmol/L (21.0-32.0); Chloride 102 mmol/L (98-108); Glucose 88 mg/dL (70-99); Potassium 5.0 mmol/L (3.3-5.1)
== END | disposition home or self-care (01) ==
LOC: LAB 09:37
PROVIDERS: PCP Family Medicine; Referring Provider Nurse Practitioner Gerontology; Visit Provider Nurse Practitioner Gerontology
DX: I50.22 Chronic systolic (congestive) heart failure (principal)
CPT/HCPCS: 36415; 80048

== ENCOUNTER → 2025-02-07 | Outpatient (CLI) | payer MEDICARE, SELFPAY ==
[2025-02-07 10:40] LABS: Anion Gap 11 (5-15); BUN 25 mg/dL (4-19); BUN/Creat Ratio 20.8 RATIO (10-20); Calcium,Total 9.1 mg/dL (7.6-11.0); Carbon Dioxide 30.0 mmol/L (21.0-32.0); Chloride 99 mmol/L (98-108); Glucose 92 mg/dL (70-99); Potassium 4.5 mmol/L (3.3-5.1)
== END | disposition home or self-care (01) ==
LOC: LAB 09:29
PROVIDERS: PCP Family Medicine; Referring Provider Physician Assistant Medical; Visit Provider Physician Assistant Medical
DX: R06.02 Shortness of breath (principal); I50.22 Chronic systolic (congestive) heart failure; Z51.81 Encounter for therapeutic drug level monitoring; Z79.899 Other long term (current) drug therapy
CPT/HCPCS: 36415; 80048